=== PATIENT | male | born 1935 | race Caucasian/White ===

== ENCOUNTER 2020-04-25 13:38 | Outpatient (REF) | payer MEDICARE, SELFPAY ==
[2020-04-25 14:42] LABS: Eosinophils Percent Auto 0.9 % (0-4); MANUAL DIFF FLAG SCAN; PLT CLUMP 1; SCAN SMEAR FLAG 1
[2020-04-25 14:44] LABS: Basophils Percent Auto 0.9 % (0-2); Hemoglobin 8.9 g/dl (14.0-18.0); Imm Gran Abs Auto 0.01 X10*3/uL (0.00-0.03); Imm Gran Pct Auto 0.3 % (0.0-0.4); Lymphocytes Absolute Auto 0.6 X10*3/uL (1.2-4.9); Lymphocytes Percent Auto 16.8 % (20-40); Mean Corpuscular Hemoglobin 35.3 pg (27.0-33.0); Mean Corpuscular Volume 107.1 fL (80-98); Mean Platelet Volume 10.6 fL (9.4-12.4); Monocytes Absolute Auto 0.2 X10*3/uL (0.1-1.2); Monocytes Percent Auto 6.7 % (2-11); Neutrophils Absolute Auto 2.4 X10*3/uL (2.0-8.3); Neutrophils Percent Auto 74.4 % (45-73); Platelet Count 108 X10*3/uL (160-400); Red Blood Count 2.52 X10*6/uL (4.60-5.80); Red Cell Distribution Width 13.5 % (11.0-16.0); White Blood Count 3.3 X10*3/uL (4.8-10.8)
[2020-04-25 15:23] LABS: SLIDE REVIEW VERIFIED
== END 2020-04-25 13:39 | disposition home or self-care (01) ==
LOC: HO.LAB 13:38
PROVIDERS: PCP Internal Medicine; Visit Provider Internal Medicine
DX: D64.9 Anemia, unspecified (principal)
CPT/HCPCS: 36415; 85025

== ENCOUNTER 2020-06-14 08:55 | Outpatient (REF) | payer MEDICARE, SELFPAY ==
--- NOTE | 2020-06-14 09:00 | US_ITS ---
EXAMINATION: US ABDOMEN COMPLETE CLINICAL INFORMATION: Splenomegaly. COMPARISON: None TECHNIQUE: Real-time imaging of the abdominal viscera. FINDINGS: PANCREAS: Normal. ABDOMINAL AORTA: The proximal, mid, and distal segments are normal in caliber. INFERIOR VENA CAVA: Visualized portions are normal. LIVER: There is diffuse increased liver echogenicity. The liver is normal in size. The liver contour is normal. No focal hepatic lesion. There is no intrahepatic biliary duct dilatation seen. GALLBLADDER: There are multiple echogenic gallstones without wall thickening. The gallbladder is physiologically distended without evidence of polyps, wall thickening or pericholecystic fluid. COMMON BILE DUCT: Normal in caliber measuring 0.47 cm in diameter. RIGHT KIDNEY: Normal. No hydronephrosis. No renal calculi or focal parenchymal lesions. The kidney measures 10.7 cm in maximum dimension. LEFT KIDNEY: Normal. No hydronephrosis. No renal calculi or focal parenchymal lesions. The kidney measures 11.4 cm in maximum dimension. SPLEEN: Normal. The spleen measures 11.7 cm in maximum dimension. FREE FLUID: None. US/US abdomen complete IMPRESSION: Scattered gallstones without wall thickening. No tenderness in right upper quadrant. Mild hepatic steatosis without focal lesion. Rest of the abdominal ultrasound is unremarkable.
== END 2020-06-14 08:56 | disposition home or self-care (01) ==
LOC: HO.HMGCX 08:55
PROVIDERS: PCP Internal Medicine; Visit Provider Internal Medicine Medical Oncology
DX: R16.1 Splenomegaly, not elsewhere classified (principal)
CPT/HCPCS: 76700

== ENCOUNTER 2020-09-05 10:35 | Outpatient (REF) | payer MEDICARE, SELFPAY ==
[2020-09-05 10:50] LABS: Hemoglobin 10.5 g/dl (14.0-18.0); Imm Gran Abs Auto 0.01 X10*3/uL (0.00-0.03); Imm Gran Pct Auto 0.3 % (0.0-0.4); MANUAL DIFF FLAG SCAN; Mean Platelet Volume 10.8 fL (9.4-12.4); Neutrophils Absolute Auto 2.5 X10*3/uL (2.0-8.3); PLT CLUMP 1; SCAN SMEAR FLAG 1
[2020-09-05 10:52] LABS: Basophils Percent Auto 1.2 % (0-2); Eosinophils Absolute Auto 0.1 X10*3/uL (0.0-0.4); Eosinophils Percent Auto 2.6 % (0-4); Hematocrit 32.2 % (42-52); Lymphocytes Absolute Auto 0.6 X10*3/uL (1.2-4.9); Lymphocytes Percent Auto 16.5 % (20-40); Mean Corpuscular HGB Conc 32.6 g/dl (31.0-36.0); Mean Corpuscular Volume 107.3 fL (80-98); Monocytes Absolute Auto 0.3 X10*3/uL (0.1-1.2); Monocytes Percent Auto 8.1 % (2-11); Neutrophils Percent Auto 71.3 % (45-73); Platelet Count 120 X10*3/uL (160-400); White Blood Count 3.5 X10*3/uL (4.8-10.8)
[2020-09-05 10:54] LABS: Glucose Urine UA >=1000 MG/DL (NEG); Leukocyte Esterase Urine NEG (NEG); Nitrite Urine NEG (NEG); Urine Blood NEG (NEG); Urine Ketones NEG (NEG); Urine Protein TRACE MG/DL (NEG-TRACE)
[2020-09-05 10:58] LABS: Appearance Urine CLEAR; Color Urine YELLOW
[2020-09-05 11:03] LABS: Estimated Average Glucose 183 mg/dL
[2020-09-05 11:08] LABS: Bacteria Urine TRACE /LPF; RBC Urine 0 /HPF (0); Squamous Epithelial Cell Urine TRACE /LPF; WBC Urine 0-2 /HPF (0-4)
[2020-09-05 11:11] LABS: SLIDE REVIEW VERIFIED
[2020-09-05 11:23] LABS: Creatinine Urine 42.71 mg/dL; Microalbum/Creatinine Ratio Ur 543.1 ug/mg cr
[2020-09-05 11:26] LABS: Alanine Aminotransferase 26 U/L (0-40); Albumin Level 3.8 g/dL (3.5-5.0); Alkaline Phosphatase 52 U/L (39-117); Anion Gap 11 (12-20); Aspartate Amino Transferase 25 U/L (5-37); Bilirubin Total 1.8 mg/dL (0.0-1.0); Blood Urea Nitrogen 26 mg/dL (9-16); Calcium 8.4 mg/dL (8.4-10.2); Carbon Dioxide 24 mmol/L (22-29); Chloride 104 mmol/L (96-108); Cholesterol 153 mg/dL; Estimated Glomerular Filt Rate > 60; Glucose Fasting 287 mg/dL (60-99); HDL Cholesterol 66 mg/dL; LDL Cholesterol Calculated 67 mg/dl; Potassium 4.6 mmol/L (3.3-5.1); Sodium 134 mmol/L (135-145); Total Protein 6.1 g/dL (6.5-8.0); Triglycerides 102 mg/dL
[2020-09-05 11:54] LABS: PSA,Total (Free>4and<10) 4.07 ng/mL (0.00-4.00)
[2020-09-05 12:42] LABS: Reflex LDLD? No
[2020-09-06 11:02] LABS: Free Prostate Spec Ag 0.7 ng/mL; Percent Free Prostate Spec Ag 21 % (calc) (>25); Prostate Specific Ag Total 3.4 ng/mL (< OR = 4.0)
== END 2020-09-05 10:36 | disposition home or self-care (01) ==
LOC: HO.LNP 10:35
PROVIDERS: PCP Internal Medicine; Visit Provider Internal Medicine
DX: Z12.5 Encounter for screening for malignant neoplasm of prostate (principal); D64.9 Anemia, unspecified; D69.6 Thrombocytopenia, unspecified; I10 Essential (primary) hypertension; E11.9 Type 2 diabetes mellitus without complications; R97.20 Elevated prostate specific antigen [PSA]
CPT/HCPCS: 80053; 80061; 81001; 82043; 83036; 84153; 84154; 85025

== ENCOUNTER 2021-03-20 14:36 | Outpatient (REF) | payer MEDICARE, SELFPAY ==
[2021-03-20 15:30] LABS: Alanine Aminotransferase 22 U/L (0-40); Albumin Level 4.2 g/dL (3.5-5.0); Alkaline Phosphatase 51 U/L (39-117); Aspartate Amino Transferase 22 U/L (5-37); Bilirubin Direct 0.6 mg/dL (0.0-0.5); Bilirubin Total 1.7 mg/dL (0.0-1.0); Cholesterol 124 mg/dL; HDL Cholesterol 62 mg/dL; LDL Cholesterol Calculated 43 mg/dl; Total Protein 6.5 g/dL (6.5-8.0); Triglycerides 95 mg/dL
== END 2021-03-20 14:37 | disposition home or self-care (01) ==
LOC: HO.LNP 14:36
PROVIDERS: Visit Provider Internal Medicine
DX: E78.00 Pure hypercholesterolemia, unspecified (principal)
CPT/HCPCS: 80061; 80076

== ENCOUNTER 2021-09-27 11:42 | Outpatient (REF) | payer MEDICARE, SELFPAY ==
[2021-09-27 11:49] LABS: MANUAL DIFF FLAG NO
[2021-09-27 12:10] LABS: Basophils Percent Auto 1.2 % (0-2); Eosinophils Absolute Auto 0.1 X10*3/uL (0.0-0.4); Eosinophils Percent Auto 2.7 % (0-4); Hematocrit 34.6 % (42.0-52.0); Imm Gran Abs Auto 0.02 X10*3/uL (0.00-0.03); Imm Gran Pct Auto 0.6 % (0.0-0.4); Lymphocytes Absolute Auto 0.7 X10*3/uL (1.2-4.9); Lymphocytes Percent Auto 20.8 % (20-40); Mean Corpuscular HGB Conc 31.8 g/dl (31.0-36.0); Mean Corpuscular Hemoglobin 34.7 pg (27.0-33.0); Mean Corpuscular Volume 109.1 fL (80.0-98.0); Mean Platelet Volume 10.7 fL (9.4-12.4); Monocytes Absolute Auto 0.3 X10*3/uL (0.1-1.2); Monocytes Percent Auto 7.7 % (2-11); Neutrophils Absolute Auto 2.3 x10*3/uL (2.0-8.3); Platelet Count 103 X10*3/uL (160-400); Red Blood Count 3.17 X10*6/uL (4.60-5.80); White Blood Count 3.4 X10*3/uL (4.8-10.8)
[2021-09-27 12:19] LABS: Appearance Urine CLEAR; Color Urine YELLOW; Glucose Urine UA >=1000 MG/DL (NEG); Leukocyte Esterase Urine NEG (NEG); Nitrite Urine NEG (NEG); PH 5.5 (5.0-8.0); Specific Gravity - Urine 1.015 (1.005-1.025); Urine Blood NEG (NEG); Urine Ketones NEG (NEG); Urine Protein NEG (NEG-TRACE)
[2021-09-27 12:32] LABS: Amorphous Sediment Urine TRACE /LPF; RBC Urine 0-2 /HPF (0); WBC Urine 0 /HPF (0-4)
[2021-09-27 12:52] LABS: Creatinine Urine 41.12 mg/dL; Microalbum/Creatinine Ratio Ur 165.3 ug/mg cr
[2021-09-27 12:58] LABS: Estimated Average Glucose 166 mg/dL; Hemoglobin A1c % 7.4 %
[2021-09-27 14:15] LABS: Alanine Aminotransferase 21 U/L (0-40); Albumin Level 4.1 g/dL (3.5-5.0); Alkaline Phosphatase 59 U/L (39-117); Anion Gap 12 (12-20); Aspartate Amino Transferase 22 U/L (5-37); Bilirubin Total 1.6 mg/dL (0.0-1.0); Blood Urea Nitrogen 35 mg/dL (9-16); Calcium 9.5 mg/dL (8.4-10.2); Carbon Dioxide 24 mmol/L (22-29); Chloride 104 mmol/L (96-108); Cholesterol 145 mg/dL; Estimated Glomerular Filt Rate > 60; Glucose Fasting 205 mg/dL (60-99); HDL Cholesterol 68 mg/dL; LDL Cholesterol Calculated 58 mg/dl; Potassium 4.2 mmol/L (3.3-5.1); Sodium 136 mmol/L (135-145); Total Protein 6.7 g/dL (6.5-8.0); Triglycerides 98 mg/dL
[2021-09-27 14:49] LABS: PSA,Total (Free>4and<10) 8.16 ng/mL (0.00-4.00)
[2021-09-28 11:17] LABS: Free Prostate Spec Ag 1.4 ng/mL; Percent Free Prostate Spec Ag 19 % (calc) (>25); Prostate Specific Ag Total 7.5 ng/mL (< OR = 4.0)
== END 2021-09-27 11:43 | disposition home or self-care (01) ==
LOC: HO.LNP 11:42
PROVIDERS: PCP Internal Medicine; Visit Provider Internal Medicine
DX: Z12.5 Encounter for screening for malignant neoplasm of prostate (principal); E11.9 Type 2 diabetes mellitus without complications; I11.0 Hypertensive heart disease with heart failure; I50.21 Acute systolic (congestive) heart failure; E78.00 Pure hypercholesterolemia, unspecified; R97.20 Elevated prostate specific antigen [PSA]; E87.5 Hyperkalemia; D64.9 Anemia, unspecified
CPT/HCPCS: 80053; 80061; 81001; 81003; 82043; 83036; 84153; 84154; 85025

== ENCOUNTER 2022-10-24 13:41 | Outpatient (REF) | payer MEDICARE, SELFPAY ==
--- NOTE | ~2022-10-24 | US_ITS ---
EXAMINATION: US THYROID CLINICAL INFORMATION: Thyroid nodule. COMPARISON: None available. TECHNIQUE: Linear transducer grayscale and color Doppler examination with attention to the region of the thyroid. FINDINGS: SIZE: Measurements of the thyroid lobes and nodules are given in sagittal, anteroposterior and transverse dimensions respectively. Right Thyroid Lobe: 4.48 x 2.01 x 1.16 cm, volume 5.48 mL. Parenchyma: The gland echotexture is homogeneous. Thyroid vascularity is normal. Left Thyroid Lobe: 3.78 x 1.18 x 1.21 cm, volume 2.84 mL. Parenchyma: The gland echotexture is homogeneous. Thyroid vascularity is normal. Isthmus: 0.41 cm in maximum AP dimension. Estimated total number of nodules greater than or equal to 1 cm: 0. Processing Manager nodules are described as follows: 1. Location: Right superior. Size: 0.9 x 0.7 x 0.9 cm, volume 0.30 mL. Nodule characteristics: Composition: Solid/almost completely solid (2). Echogenicity: Hypoechoic (2). Shape: Not taller than wide (0). Margins: Smooth (0). Echogenic Foci: Punctate echogenic foci (3). ACR TI-RADS total points: 7 ACR TI-RADS category: 5 2. Location: Left superior. Size: 0.6 x 0.5 x 0.5 cm, volume 0.1 mL. Nodule characteristics: Composition: Cystic(0). ACR TI-RADS total points: 0 ACR TI-RADS category: 1 3. Location: Left mid. Size: 0.59 x 0.26 x 0.48 cm, volume 0.04 mL. Nodule characteristics: Composition: Mixed cystic and solid (1). Echogenicity: Isoechoic (1). Shape: Not taller than wide (0). Margins: Smooth (0). Echogenic Foci: None (0). ACR TI-RADS total points: 2 ACR TI-RADS category: 2 NODES: No lymphadenopathy is seen in the tissue surrounding the thyroid gland. US/US thyroid IMPRESSION: A 0.9 cm TR 5 right thyroid nodule meets criteria for annual surveillance for 5 years. Remainder of thyroid nodules do not meet criteria for follow-up. ACR TI-RADS RECOMMENDATION REFERENCE: Ultrasound-guided fine-needle aspiration, followup ultrasound, no further follow up. * TR1 (0 point) and TR2 (2 points): No FNA or follow up. * TR3 (3 points): FNA if more than or equal to 2.5 cm in maximum dimension, followup ultrasound in 1, 3 and 5 years if 1.5 to 2.4 cm in maximum dimension. * TR4 (4-6 points): FNA if more than or equal to 1.5 cm in maximum dimension, followup ultrasound in 1, 2, 3 and 5 years if 1 to 1.4 cm in maximum dimension. * TR5 (more than or equal to 7 points): FNA if more than or equal to 1 cm in maximum dimension, followup ultrasound every year for 5 years if 0.5 to 0.9 cm in maximum dimension. * TR3, TR4 or TR5 nodules that are below the size threshold for followup receive no follow up.
== END 2022-10-24 13:42 | disposition home or self-care (01) ==
LOC: HO.HMGCX 13:41
PROVIDERS: Visit Provider Internal Medicine
DX: E04.1 Nontoxic single thyroid nodule (principal)
CPT/HCPCS: 76536

== ENCOUNTER 2022-11-08 15:51 | Outpatient (REF) | payer MEDICARE, SELFPAY ==
[2022-11-08 15:58] LABS: MANUAL DIFF FLAG NO
[2022-11-08 16:17] LABS: Basophils Percent Auto 0.5 % (0-2); Eosinophils Percent Auto 0.7 % (0-4); Hematocrit 25.6 % (42.0-52.0); Hemoglobin 8.4 g/dl (14.0-18.0); Imm Gran Abs Auto 0.04 X10*3/uL (0.00-0.03); Imm Gran Pct Auto 0.9 % (0.0-0.4); Lymphocytes Absolute Auto 0.7 X10*3/uL (1.2-4.9); Mean Corpuscular HGB Conc 32.8 g/dl (31.0-36.0); Mean Corpuscular Hemoglobin 32.9 pg (27.0-33.0); Mean Corpuscular Volume 100.4 fL (80.0-98.0); Mean Platelet Volume 10.7 fL (9.4-12.4); Monocytes Absolute Auto 0.3 X10*3/uL (0.1-1.2); Monocytes Percent Auto 7.4 % (2-11); Neutrophils Absolute Auto 3.3 x10*3/uL (2.0-8.3); Neutrophils Percent Auto 75.5 % (45-73); Platelet Count 134 X10*3/uL (160-400); Red Blood Count 2.55 X10*6/uL (4.60-5.80); Red Cell Distribution Width 15.2 % (11.0-16.0); White Blood Count 4.3 X10*3/uL (4.8-10.8)
== END 2022-11-08 15:52 | disposition home or self-care (01) ==
LOC: HO.LNP 15:51
PROVIDERS: Visit Provider Internal Medicine
DX: D69.6 Thrombocytopenia, unspecified (principal)
CPT/HCPCS: 85025

== ENCOUNTER 2022-12-03 11:02 | Outpatient (REF) | payer MEDICARE, SELFPAY ==
[2022-12-03 11:26] LABS: Neutrophils Percent Auto 70.6 % (45-73); PLT CLUMP 1; SCAN SMEAR FLAG 1
[2022-12-03 11:28] LABS: Basophils Absolute Auto 0.1 X10*3/uL (0.0-0.2); Basophils Percent Auto 1.9 % (0-2); Eosinophils Absolute Auto 0.1 X10*3/uL (0.0-0.4); Eosinophils Percent Auto 1.3 % (0-4); Hemoglobin 10.4 g/dl (14.0-18.0); Imm Gran Abs Auto 0.02 X10*3/uL (0.00-0.03); Imm Gran Pct Auto 0.5 % (0.0-0.4); Lymphocytes Absolute Auto 0.7 X10*3/uL (1.2-4.9); Lymphocytes Percent Auto 17.5 % (20-40); Mean Corpuscular HGB Conc 32.5 g/dl (31.0-36.0); Mean Corpuscular Volume 104.6 fL (80.0-98.0); Mean Platelet Volume 10.9 fL (9.4-12.4); Monocytes Absolute Auto 0.3 X10*3/uL (0.1-1.2); Monocytes Percent Auto 8.2 % (2-11); Neutrophils Absolute Auto 2.7 x10*3/uL (2.0-8.3); Red Blood Count 3.06 X10*6/uL (4.60-5.80); Red Cell Distribution Width 15.2 % (11.0-16.0)
[2022-12-03 11:40] LABS: Iron 86 mcg/dL (45-160); Percent Iron Saturation 39 % (15-50); Total Iron Binding Capacity 218 mcg/dL (228-428); Unsaturated Iron Binding 132 ug/dL
[2022-12-03 11:44] LABS: MANUAL DIFF FLAG NO; Platelet Count 125 X10*3/uL (160-400); White Blood Count 3.8 X10*3/uL (4.8-10.8)
[2022-12-03 12:13] LABS: Folate 16.4 ng/mL (> or = 4.0); Vitamin B12 > 2000 pg/mL (200-900)
== END 2022-12-03 11:03 | disposition home or self-care (01) ==
LOC: HO.LNP 11:02
PROVIDERS: Visit Provider Internal Medicine
DX: D64.9 Anemia, unspecified (principal); D70.9 Neutropenia, unspecified
CPT/HCPCS: 82607; 82746; 83540; 85025

== ENCOUNTER 2023-07-10 11:34 | Outpatient (REF) | payer MEDICARE, SELFPAY | END 2023-07-10 11:35 | disposition home or self-care (01) | LOC: HO.LNP 11:34 | PROVIDERS: Visit Provider Internal Medicine | DX: E11.9 Type 2 diabetes mellitus without complications (principal); E78.00 Pure hypercholesterolemia, unspecified | CPT/HCPCS: 80061; 80076; 82947; 83036 ==

== ENCOUNTER 2023-10-15 14:12 | Outpatient (REF) | payer MEDICARE, SELFPAY ==
--- NOTE | ~2023-10-15 | US_ITS ---
EXAMINATION: US THYROID CLINICAL INFORMATION: Thyroid nodule. COMPARISON: Thyroid ultrasound 10/24/2022. TECHNIQUE: Linear transducer grayscale and color Doppler examination with attention to the region of the thyroid. FINDINGS: SIZE: Measurements of the thyroid lobes and nodules are given in sagittal, anteroposterior and transverse dimensions respectively. Right Thyroid Lobe: 4.3 x 1.7 x 1.3 cm, volume 5.0 mL. Previously 4.5 x 2.0 x 1.2 cm, volume 5.5 mL. Parenchyma: The gland echotexture is homogeneous. Thyroid vascularity is normal. Left Thyroid Lobe: 4.0 x 1.3 x 1.5 cm, volume 4.1 mL. Previously 3.8 x 1.2 x 1.2 cm, volume 2.8 mL. Parenchyma: The gland echotexture is homogeneous. Thyroid vascularity is normal. Isthmus: 0.3 cm in maximum AP dimension. Previously 0.4 cm. Estimated total number of nodules greater than or equal to 1 cm: 0. Oracle Database Manager nodules are described as follows: 1. Location: Right upper pole. Size: 0.9 x 0.8 x 0.9 cm, volume 0.33 mL. Previously: 0.9 x 0.7 x 0.9 cm, volume 0.30 mL. Nodule characteristics: Composition: Solid/almost completely solid (2). Echogenicity: Hypoechoic (2). Shape: Not taller than wide (0). Margins: Smooth (0). Echogenic Foci: Punctate echogenic foci (3). ACR TI-RADS total points: 7 Previous: 7 ACR TI-RADS category: 5 Previous: 5 2. Location: Left upper pole. Size: 0.6 x 0.5 x 0.6 cm, volume 0.08 mL. Previously: 0.6 x 0.5 x 0.5 cm, volume 0.07 mL. Nodule characteristics: Composition: Cystic(0). ACR TI-RADS total points: 0 Previous: 0 ACR TI-RADS category: 1 Previous: 1 3. Location: Left mid pole. Size: 0.8 x 0.3 x 0.5 cm, volume 0.05 mL. Previously: 0.6 x 0.3 x 0.5 cm, volume 0.04 mL. Nodule characteristics: Composition: Spongiform (0). ACR TI-RADS total points: 0 Previous: 0 ACR TI-RADS category: 1 Previous: 1 NODES: No lymphadenopathy is seen in the tissue surrounding the thyroid gland. US/US thyroid IMPRESSION: Stable 0.9 cm TR 5 nodule in the right upper thyroid. Recommend surveillance ultrasound in one year. ACR TI-RADS RECOMMENDATION REFERENCE: Ultrasound-guided fine-needle aspiration, follow up ultrasound, no further followup. * TR1 (0 point) and TR2 (2 points): No FNA or followup * TR3 (3 points): FNA if more than or equal to 2.5 cm in maximum dimension, follow up ultrasound in 1, 3 and 5 years if 1.5 to 2.4 cm in maximum dimension. * TR4 (4-6 points): FNA if more than or equal to 1.5 cm in maximum dimension, follow up ultrasound in 1, 2, 3 and 5 years if 1 to 1.4 cm in maximum dimension. * TR5 (more than or equal to 7 points): FNA if more than or equal to 1 cm in maximum dimension, follow up ultrasound every year for 5 years if 0.5 to 0.9 cm in maximum dimension. * TR3, TR4 or TR5 nodules that are below the size threshold for follow up receive no followup.
== END 2023-10-15 14:13 | disposition home or self-care (01) ==
LOC: HO.HMGCX 14:12
PROVIDERS: PCP Internal Medicine; Visit Provider Internal Medicine
DX: E04.1 Nontoxic single thyroid nodule (principal)
CPT/HCPCS: 76536

== ENCOUNTER 2023-12-17 14:28 | Outpatient (REF) | payer MEDICARE, SELFPAY ==
--- NOTE | ~2023-12-17 | CT_ITS ---
EXAMINATION: CT LUMBAR SPINE WITHOUT CONTRAST CLINICAL INFORMATION: Low back pain. Lumbar disc disease. COMPARISON: Lumbar spine MRI 09/17/2018. TECHNIQUE: Clean Up Worker images were obtained. CT imaging of the lumbar spine was performed without contrast. Data was reformatted into multiplanar images at the acquisition workstation. This CT examination was performed using dose optimization techniques as appropriate, variously including the following: *Automated exposure control *Adjustment of mA and/or kV according to patient size (this includes techniques or standardized protocols for targeted exams where dose is matched to indication/reason for exam; i.e. extremities or head) *Use of iterative reconstruction technique DLP; 491 mGy-cm FINDINGS: There are chronic postoperative changes of a posterior spinal fusion. Transpedicular hardware extends from L4 to L5. Hardware is grossly intact with no evidence to suggest loosening or failure. Bridging bone completely fuses the L4 and L5 vertebral segments. Alignment is otherwise normal. Vertebral body heights are preserved. No acute fracture. There is loss of intervertebral disc height with associated sclerotic degenerative endplate changes, hypertrophic disc osteophyte spurring, and intervertebral vacuum disc phenomenon at L5-S1 and to a lesser extent at L3-L4. Canal patency is not well assessed on this examination due to inherent limitations of CT without intrathecal contrast and due to the extent of streak artifact related to the fusion hardware There is a least moderate canal stenosis at the level of L3-L4. A bulging disc in conjunction with facet degenerative change at L3-L4 causes at least mild mass effect on both L3 foraminal nerve roots. There is also at least moderate compression of both L5 foraminal nerve roots related to degenerative changes at L5-S1. Limited visualization of the retroperitoneal anatomy reveals heavily calcified atherosclerotic plaque involving abdominal aorta and iliac vessels. Psoas and paraspinal muscle groups are grossly symmetric. CT/CT lumbar spine wo IV con IMPRESSION: There are chronic postoperative changes of a posterior spinal fusion with transpedicular hardware extending from L4 to L5. Bridging bone completely fuses the L4 and L5 vertebral segments. There is junctional spondylosis above and below the fused segments. Canal patency is not well assessed on this examination due to inherent limitations of CT without intrathecal contrast and due to the extent of streak artifact related to the fusion hardware. There is at least moderate canal stenosis at L3-L4 and at least mild mass effect on both L3 foraminal nerve roots. There is also at least moderate compression of both L5 foraminal nerve roots related to degenerative changes at L5-S1.
== END 2023-12-17 14:29 | disposition home or self-care (01) ==
LOC: HO.CT 14:28
PROVIDERS: PCP Internal Medicine; Visit Provider Internal Medicine
DX: M51.16 Intervertebral disc disorders with radiculopathy, lumbar region (principal)
CPT/HCPCS: 72132

== ENCOUNTER 2024-02-09 11:22 | Outpatient (REF) | payer MEDICARE, SELFPAY ==
[2024-02-09 11:50] LABS: Estimated Average Glucose 180 mg/dL; Hemoglobin A1c % 7.9 % (<6.0)
[2024-02-09 12:16] LABS: Alanine Aminotransferase 17 U/L (0-40); Alkaline Phosphatase 48 U/L (39-117); Aspartate Amino Transferase 18 U/L (5-37); Bilirubin Direct 0.5 mg/dL (0.0-0.5); Bilirubin Total 1.6 mg/dL (0.0-1.0); Cholesterol 114 mg/dL (<200); Glucose Fasting 135 mg/dL (60-99); HDL Cholesterol 58 mg/dL (>40); LDL Cholesterol Calculated 42 mg/dL (<100); Total Protein 6.4 g/dL (6.5-8.0); Triglycerides 72 mg/dL (<150)
[2024-02-09 12:31] LABS: Reflex LDLD? No
== END 2024-02-09 11:23 | disposition home or self-care (01) ==
LOC: HO.LNP 11:22
PROVIDERS: Visit Provider Internal Medicine
DX: E11.9 Type 2 diabetes mellitus without complications (principal); E78.00 Pure hypercholesterolemia, unspecified
CPT/HCPCS: 80061; 80076; 82947; 83036

== ENCOUNTER 2024-07-04 16:03 | Emergency (ER) | payer MEDICARE, SELFPAY ==
--- NOTE | ~2024-07-04 | XR_ITS ---
CLINICAL HISTORY: 2nd toe injury, diabetic 3 view right 2nd toe Comparison: None Findings: There is a nondisplaced fracture of the proximal metaphysis of the 2nd distal phalanx. No dislocation. Moderate arthritic change. No erosions. No radiopaque foreign body. There are peripheral vascular calcifications compatible with diabetes. IMPRESSION: Acute fracture of the 2nd distal phalanx. This document has been electronically signed by: Sarah Stephens MD on 07/04/2024 17:19:28
--- NOTE | 2024-07-04 16:05 | ED.LOWEXIN ---
HPI - Extremity Injury (Lower) General Chief Complaint: Skin/Abscess/Foreign Body Stated Complaint: R second toe injury Time Seen by Provider: 07/04/24 17:22 Source: patient, RN notes reviewed and old records reviewed Mode of arrival: ambulatory History of Present Illness ED Provider: Perlita Holloway PA-C HPI Narrative: 89-year-old male with a past medical history diabetes, HTN, thrombocytopenia, anemia, presenting to the ED complaining of right 2nd toe pain and bleeding s/p stubbing toe on garage step this morning. Denies injury to other area, fall all the way to ground, head trauma, LOC. Admits take baby ASA. Denies numbness, tingling, weakness Related Data Home Medications ?Medication ?Instructions ?Recorded ?Confirmed Novolog Flexpen U-100 Insulin See Rx Instructions .Route .COMPLEX 05/29/20 02/01/22 aspirin 81 mg tablet 81 mg PO DAILY 05/29/20 02/01/22 atorvastatin 80 mg tablet 80 mg PO DAILY 05/29/20 02/01/22 insulin glargine 100 unit/mL 10 unit subcut DAILY 05/29/20 02/01/22 subcutaneous cartridge vitamin B12 500 mcg-folic acid 400 1 tab PO DAILY 05/29/20 02/01/22 mcg tablet ferrous sulfate 325 mg (65 mg 325 mg PO BID 10/06/20 02/01/22 iron) tablet (Iron (ferrous sulfate)) multivitamin 1 tab PO DAILY 02/01/22 02/01/22 Previous Rx's ?Medication ?Instructions ?Recorded cephalexin 500 mg capsule 500 mg PO QID 7 days #28 caps 07/04/24 Allergies Allergy/AdvReac Type Severity Reaction Status Date / Time No Known Allergies Allergy Verified 07/04/24 16:07 [No Known Allergies*] Review of Systems Review of Systems: Yes all other systems are reviewed and are negative Constitutional: Constitutional: Reports as per [facility] Past Medical History Attestation statement: The following information was validated with the patient. Source: old records reviewed Medical History Diabetes Essential (primary) hypertension Thrombocytopenia Anemia Surgical History Previous back surgery Family History Family History Mother Heart disease Social History Social History Household Members: None Housing: House Are you a primary healthcare facility administrator to a significant other at home: No Do you presently have visiting nurse or other home services: No Alcohol intake: current Alcohol intake frequency: 0-2 drinks per day Patient Tobacco Use Status: Never used Tobacco Advance Directives: No Advance Directives Information Provided: No service: Yes Current occupational status: retired Physical Exam Vital Signs: Vital Signs: Last Vital Signs Temp 97.9 F 07/04/24 18:12 Pulse 84 07/04/24 18:12 Resp 16 07/04/24 18:12 BP 156/60 H 07/04/24 18:12 Pulse Ox 99 07/04/24 18:12 O2 Del Method Room Air 07/04/24 18:12 BMI result Body Mass Index 23.6 Const: General: cooperative, healthy appearing and no acute distress Orientation/consciousness: patient oriented x3 Limitations: no limitations HEENT: Head: Yes normal to inspection and Yes atraumatic Ears: hearing grossly normal bilaterally General nose exam: Normal external nose present Face and sinus: Yes normal facial exam Eyes: General: appearance normal, both eyes and all related structures EOM: EOMs intact bilaterally Neck: Neck: Yes normal visual inspection and Yes no meningeal signs Resp: Effort & Inspection: normal respiratory effort and no respiratory distress Cardio: Rate: regular rate Skin: Rashes: no rashes Neuro: General: patient oriented x3, tone normal and no meningeal signs Cranial nerves: Yes CN's II-XII intact bilaterally Gait exam (Neuro): Normal gait present Extrem: Other: Right 2nd toe with swelling, blood blister, and skin tear. Tender to palpation. Neurovascularly intact. No erythema/warmth. Nail intact Course Course Course Narrative: This is a Rapid Medical Examination (RME) performed by Viji Alvarez PA-C in triage. Full HPI, ROS, assessment and treatment plan per primary provider in the Main ED. 89 yo male hx anemia, DM here for eval of right second toe wound after stubbing the toe on a step in his garage. he was unaware he injured the toe until he looked down and saw his sock was bloody. not on AC. Plan: xr XR toe RT min 2V IMPRESSION: Acute fracture of the 2nd distal phalanx > wound dressing applied with Surgicel. Dulce Maria tape applied. Recommended podiatry follow-up Medical Decision Making Medical Decision Making MDM Narrative: 89-year-old male with a past medical history diabetes, HTN, thrombocytopenia, anemia, presenting to the ED complaining of right 2nd toe pain and bleeding s/p stubbing toe on garage step this morning. On exam vital signs stable, NAD, nontoxic appearing, physical exam as noted above. Concern for fracture. No evidence of cellulitis. Low suspicion for septic joint Plan: X-ray, wound care Please refer to course for remaining clinical decision making, interpretation of labs/imaging results, and discussions with consultants and/or family members. Differential Diagnosis Differential Diagnoses: The differential diagnosis associated with the presentation includes As above Independent Interpretation I performed an independent interpretation of an: Plain X-Ray Radiology Impression Discussion of test interpretation with radiology: I have reviewed the radiologist's reading. External Record Review External record reviewed: Inpatient record, Office record, Outpatient record, Prior outpatient labs, Prior outpatient radiology, Primary care record and Outside ED record Tests considered The following testing was considered but not selected: As above Prescription Management I considered prescription management with: Pain Medication and Antibiotic Chronic Conditions Patient?s care impacted by: Diabetes Procedures Orthopedic Splinting/Casting Injury #1: Side: right Lower Extremity Injury Location: toe Lower Extremity Immobilizer: dulce maria tape Discharge Plan Discharge Clinical Impression: Fracture of distal phalanx of toe Patient Disposition: Home, Self-Care Instructions: Toe Fracture (ED) Additional Instructions: You broke your 2nd toe Keflex as an antibiotic please take as prescribed until completion Please keep dulce maria tape on Please follow-up with Podiatry if area begins to look infected, is red, has persistent bleeding or you have fever return to the ED Prescriptions: New cephalexin 500 mg capsule 500 mg PO QID 7 Days Qty: 28 0RF No Action atorvastatin 80 mg Tablet 80 mg PO DAILY aspirin 81 mg Tablet 81 mg PO DAILY Lantus U-100 Insulin 100 unit/mL Cartridge 10 unit SUBCUT DAILY vitamin [id number] acid 500-400 mcg Tablet 1 tab PO DAILY Novolog Flexpen U-100 Insulin See Rx Instructions .ROUTE .COMPLEX Rx Instructions: 5 units w/ breakfast, 3 units w/ lunch, 5 units w/ dinner ferrous sulfate [Iron (ferrous sulfate)] 325 mg (65 mg iron) Tablet 325 mg PO BID multivitamin Tablet 1 tab PO DAILY Referrals: [facility] [place] [facility] [Provider Group] - 1 week Ady Johns MD [Physician] - Bob Johns DPM [Physician] - Print Language: Senegalese
[2024-07-04 16:06] VITALS: BP 164/61; PULSE 85; RESP 16; TEMP 36.4; O2SAT 100; BMI 23.6
--- OUTSIDE RECORDS SUMMARY | 2024-07-04 16:06 | XMS_ITS | Encounter Summary ---
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 This section includes the names of all active insurance providers for the patient. Insurance Provider Type of Coverage Plan Name Start of Policy Coverage End of Policy Coverage Group Number Member ID Insurance Provider's Telephone Number Policy Frank's Name Patient's Relationship to Policy Frank [place] MEDICARE SUPPLEMEN BHARGAVI PSUED O MEDEX BRONZ E Jun 06, 2001 [id number] [phone] [facility] OM[place] PATIENT [place] OF [place] ([place]ARD[place] MEDICARE SUPPLEMEN BHARGAVI PSUED O MEDEX BRONZ E Jun 06, 2001 [id number] [phone] [place] PATIENT [place] MEDIC[place] SUPPLEMEN BHARGAVI MEDEX BRONZ E Jun 06, 2001 [id number] [facility] [place] PAT[place] SUPPLEMEN BHARGAVI PSUED O MEDEX BRONZ E Jun 06, 2001 [id number] [facility] OMAS PATIENT BCBS OF [facility] MEDICARE SUPPLEMEN BHARGAVI PSUED O MEDEX BRONSalbador E Jun 06, 2001 [id number] HUDMERLIN,RACHEL OMAS PATIENT MEDICARE (WNR) MEDICARE (M) PART A May 07, 2001 PART A [id number] ([id number] HUDOCK,RACHEL OMAS PATIENT MEDICARE (WNR) MEDICARE (M) PART B May 07, 2001 PART B [id number] ([id number] HUDOCK,RACHEL OMAS PATIENT MEDICARE (WNR) MEDICARE (M) PART A May 07, 2001 PART A [id number] HUDOCK,RACHEL OMAS PATIENT MEDICARE (WNR) MEDICARE (M) PART B May 07, 2001 PART B [id number] HUDMERLIN,RACHLE OMAS PATIENT MEDICARE (WNR) MEDICARE (M) PART A May 07, 2001 PART A [id number] ([id number] HUDMERLIN,RACHEL OMAS PATIENT MEDICARE (WNR) MEDICARE (M) PART B May 07, 2001 PART B [id number] HUDOCK,RACHEL OMAS PATIENT MEDICARE (WNR) MEDICARE (M) PART A May 07, 2001 PART A [id number] HUDMERLIN,RACHEL OMAS PATIENT MEDICARE (WNR) MEDICARE (M) PART B May 07, 2001 PART B [id number] HUDRACHEL BOYER OMAS PATIENT Selected Encounter This section includes the information on record at [place] for the Encounter. Date/Time Encounter Type Encounter Description Reason Pro vider Source Aug 02, 2023 06:30 PM Outpatient Encounter ENDOCRINOLOGY IHE Encounter Template Text not used by [facility] Plan of Treatment: Future Appointments (+ 6 months) and Future Tests (+/- 45 days) The Plan of Treatment section includes future care activities for the patient from all VA treatmentfacilities. This section includes future appointments and future orders which are active, pending or scheduled. Future Appointments This section includes appointments that were scheduled to occur 6 months from the date of the Encounter, up to a maximum of 20 appointments. The data comes from all [place] treatment facilities. Appointment Date/Time Appointment Type Appointme nt Facility Name Aug 05, 2023 11:00 AM AMBULATORY - MEDICINE [place] [facility] [place] [facility] Aug 14, 2023 06:00 AM AMBULATORY - MEDICINE [place] [facility] [place] [facility] Aug 28, 2023 11:00 AM AMBULATORY - MEDICINE [place] [facility] [place] [facility] November 21, 2023 08:00 AM AMBULATORY - MEDICINE [place] [facility] [place] [facility] December 04, 2023 11:00 AM AMBULATORY - MEDICINE [place] [facility] [place] [facility] Dec 23, 2023 11:00 AM AMBULATORY - MEDICINE [place] [facility] [place] [facility] Jan 21, 2024 08:00 AM AMBULATORY - MEDICINE [place] [facility] [place] [facility] Lab Results: +/- 30 days of the encounter This section includes the Chemistry and Hematology Lab Results on record with [place] for the patient. Radiology Reports and Pathology Reports are provided separately, in subsequent sections. Lab Results This section contains the Chemistry/Hematology Results that were resulted 30 days before or 30 daysafter the date of the Encounter. Date/Time Source Result Type Result - Unit Interpretation Reference Range Comment Aug 15, 2023 11:00 AM [facility] MICROALBUMIN CREATININE RATIO PANEL Specimen Type: URINE No comment entered. Ordering Provider: FABI MCKEON Report Released Date/Time: May 12, 2023 12:16 PM Reporting Lab: [address] [address] Performing Lab: [address] [address] MICROALBUMIN/C REATININE RATIO 112.4 mg/g H 0-29.9 MICROALBUMIN,Q UANTITATIVE 1.5 mg/dL RR UNAVAIL CREATININE URINE 13.35 mg/dL Aug 01, 2023 11:00 AM [facility] HEMOGLOBIN A1C PANEL Specimen Type: BLOOD Comment: Values obtained from A1C measurements can vary. For atypical A1C assays, a reported value of 7.0 could actually be between 6.72 and 7.28 if measured by a reference method. A reported value of 9.0 could actually be between 8.73 and 9.27. Ref: http://www.ngs p.org/CAPdata. asp Ordering Provider: FABI MCKEON Report Released Date/Time: May 12, 2023 12:16 PM Reporting Lab: [facility] [address] [address] Performing Lab: [address] [address] HEMOGLOBIN A1C 7.3 H 4.0-5.6 Aug 01, 2023 11:00 AM [facility] LIPID PANEL FASTING Specimen Type: SERUM No comment entered. Ordering Provider: FABI MCKEON Report Released Date/Time: May 12, 2023 12:16 PM Reporting Lab: [facility] [address] [facility] [address] Performing Lab: [address] [address] CHOLESTEROL 157 mg/dL TRIGLYCERIDE 63 mg/dL 0-150 LDL calculated 65 mg/dL 0-129 CHOL/HDL 2.0 HDL CHOLESTEROL 79 mg/dL H 40-60 Aug 01, 2023 11:00 AM [facility] BASIC METABOLIC PANEL (non-fasting) Specimen Type: SERUM No comment entered. Ordering Provider: FABI MCKEON Report Released Date/Time: May 12, 2023 12:16 PM Reporting Lab: [address] [address] Performing Lab: [address] [address] UREA NITROGEN 40 mg/dL H 7-25 GLUCOSE 119 mg/dL H 65-100 SODIUM 134 mmol/L L 135-145 POTASSIUM 4.1 mmol/L 3.5-5.0 CHLORIDE 97 mmol/L L 100-110 CO2 28 meq/L 20-30 CREATININE, Serum 1.21 mg/dL 0.50-1.40 eGFR(CKD-EPI 2020) 58 mL/min L >60 Social History: Smoking Status (Most current) and Tobacco Use (All prior to encounter date) This section includes the most current, and the historical, smoking and tobacco- related health factors from the [place] facility where the Encounter took place. Current Smoking Status This section includes the most current smoking, or tobacco-related health factor, from the [place] facility where the Encounter took place. Date/Time Current Smoking Status Comment [facility] it May 07, 2022 09:00 AM VA-TOBACCO FORMER USER [place] [facility] [place] [facility] Tobacco Use History This section includes a history of the smoking, or tobacco-related health factors, that were collected on or before the date of the Encounter. The data comes from the [place] facility where the Encounter took place. Date/Time Smoking Status/Tobac co Use Comment Facility May 07, 2022 09:00 AM VA-TOBACCO QUIT 15 YRS OR MORE [place] [facility] [place] [facility] May 21, 2021 08:00 AM VA-TOBACCO FORMER USER [place] [facility] [place] [facility] May 21, 2021 08:00 AM VA-TOBACCO QUIT 15 YRS OR MORE [place] [facility] [place] [facility] Apr 24, 2020 11:00 AM VA-TOBACCO FORMER USER [place] [facility] [place] [facility] Apr 24, 2020 11:00 AM VA-TOBACCO QUIT 15 YRS OR MORE [place] [facility] [place] [facility] Jan 15, 2018 10:57 AM QUIT TOBACCO USE > 7 YEARS AGO [facility] [place] [facility] Dec 10, 2016 08:53 AM QUIT TOBACCO USE > 7 YEARS AGO [facility] [place] [facility] Jul 19, 2015 10:22 AM QUIT TOBACCO USE > 7 YEARS AGO Quit about 40 years ago. [place] [facility] [place] [facility] November 14, 2004 10:00 AM HISTORY OF SMOKING [place] [facility] [place] [facility] November 14, 2004 10:00 AM LIFETIME NON-SMOKER [place] [facility] [place] [facility] Oct 25, 2003 10:34 AM HISTORY OF SMOKING [place] [facility] [place] [facility] Oct 07, 2002 09:41 AM HISTORY OF SMOKING [facility] [place] [facility] Nov 03, 2001 10:31 AM QUIT TOBACCO USE > 7 YEARS AGO [place] [facility] [place] [facility] Jul 31, 2001 02:15 PM NON-TOBACCO USER Quit 20 yrs ago [facility] [place] [facility] Advance Directives: All historical and current Section Date Range: From patient's date of to the date document was created. This section includes ALL of a patient's completed or amended [place] Advance and Rescinded Directives. The entries below indicate that a directive exists for the patient, but an actual copy is not included with this document. The data comes from all [place] facilities. Date Advance Directives Provider Source Jul 03, 2023 ADVANCE DIRECTIVE RICHARD BAZZI [facility] Encounter Notes: All associated encounter notes This section contains the clinical notes associated to the Encounter. Date/Time Encounter Note(s) Provider Source Aug 02, 2023 06:30 PM LETTERS: LOCAL TITLE: PATIENT LETTER (B) STANDARD TITLE: LETTERS DATE OF NOTE: AUG 02, 2023@18:30 ENTRY DATE: AUG 02, 2023@18:30:06 AUTHOR: FABI MCKEON COSIGNER: URGENCY: STATUS: COMPLETED Jul [facility] [address], [place] [address] Dear , Your recent test results are as follows: 08/01/2023 11:00 BLOOD !! HEMOGLOBIN A1C 7.3 H % 4.0 - 5.6 08/01/2023 11:00 SERUM CREATININE, Serum 1.21 mg/dL 0.50 - 1.40 eGFR(CKD-EPI 2020 58 L mL/min Ref: >=60 SODIUM 134 L mmol/L 135 - 145 POTASSIUM 4.1 mmol/L 3.5 - 5.0 CHLORIDE 97 L mmol/L 100 - 110 CO2 28 mEq/L 20 - 30 UREA NITROGEN 40 H mg/dL 7 - 25 GLUCOSE 119 H mg/dL 65 - 100 CHOLESTEROL 157 mg/dL <7 - 199 TRIGLYCERIDE 63 mg/dL 0 - 150 LDL cholesterol 65 mg/dL 0 - 70 CHOL/HDL 2.0 HDL CHOLESTEROL 79 H mg/dL 40 - 60 Your kidney function blood test is fine for age. Your chemistries are fine. Please call if you have any questions or concerns at [phone] option 2 option 4. Sincerely, MD LINDA Mims [facility]
--- OUTSIDE RECORDS SUMMARY | 2024-07-04 16:06 | XMS_ITS ---
Author Name [facility] [place] [facility] Address [address] [place] [address] Care Team Providers Care Motor Scooter Repairer Name Role Phone ROBERT DAVIS Primary Care Provider Unav ailable RICHARD BAZZI Unavailable Unavailable CASSANDRA FERRELL Unavailable Unavailable KELSEA JO Unavailable Unavailable MONSE DUBON Unavailable Unavailable MILLIE DAVENPORT Unavailable Unavailable DARSHAN OLIVERA Unavailable Unavailable СЕРГЕЙ, JENS Unavailable Unavailable RONY, PADMA Unavailable Unavailable Insurance Providers: All historical and [...] O MEDEX BRONZ E Jun 06, 2001 [id number] OM[place] PATIENT ANTHE[place] OF [place] (BLUECARD) MEDICARE SUPPLEMEN BHARGAVI PSUED O MEDEX BRONZ E Jun 06, 2001 [id number] [place] PATIENT [place] MED[place] SUPPLEMEN BHARGAVI MEDEX BRONZ E Jun 06, 2001 [id number] [phone] [place] PAT[place] SUPPLEMEN BHARGAVI PSUED O MEDEX BRONZ E Jun 06, 2001 [id number] HUDRACHEL BOYER [place] PAT[place] MED[place] SUPPLEMEN BHARGAVI PSUED O MEDEX BRONZ E Jun 06, 2001 [id number] HUDMERLIN,RACHEL OMAS PATIENT MEDICARE (WNR) MEDICARE (M) PART A May 07, 2001 PART A [id number] HUDOCK,RACHEL OMAS PATIENT MEDICARE (WNR) MEDICARE (M) PART B May 07, 2001 PART B [id number] ([id number] [phone] HUDOCK,RACHEL OMAS PATIENT MEDICARE (WNR) MEDICARE (M) PART A May 07, 2001 PART A [id number] ([id number] HUDOCK,RACHEL OMAS PATIENT MEDICARE (WNR) MEDICARE (M) PART B May 07, 2001 PART B [id number] ([id number] HUDMERLIN,RACHEL OMAS PATIENT MEDICARE (WNR) MEDICARE (M) PART A May 07, 2001 PART A [id number] HUDRACHEL BOYER OMAS PATIENT MEDICARE (WNR) MEDICARE (M) PART B May 07, 2001 PART B [id number] HUDMERLIN,RACHEL OMAS PATIENT MEDICARE (WNR) MEDICARE (M) PART A May 07, 2001 PART A [id number] ([id number] HUDMERLIN,RACHEL OMAS PATIENT MEDICARE (WNR) MEDICARE (M) PART B May 07, 2001 PART B [id number] ([id number] HUDRACHEL BOYER [facility] PATIENT Selected Encounter This section includes the information on [place] at [place] for the Encounter. Date/Time Encounter Type Encounter Description Reason Pro vider Source Aug 04, 2023 10:04 AM Outpatient Encounter [facility] PHYSIC EXTND(ALLEY TENDER,ACCOUNTS PAYABLE COORDINATOR,PA) IHE Encounter Template Text not used by [...] 20 appointments. The data comes from all [place] treatment facilities. Appointment Date/Time Appointment Type Appointme nt Facility Name Aug 05, 2023 11:00 AM [place]ATORY [place] [facility] [place] [facility] Aug 14, 2023 06:00 AM [place] [facility] [place] [facility] Aug 28, 2023 11:00 AM [place]ORY [place] [facility] [place] [facility] November 21, 2023 08:00 AM AM[place]ULATORY [place]INE [place] [facility] [place] [facility] December 04, 2023 11:00 AM [place]ATORY [place] [facility] [place] [facility] Dec 23, 2023 11:00 AM [place]ATORY [place] [facility] [place] [facility] Jan 21, 2024 08:00 AM [place]ORY [place] [facility] [place] [facility] Lab Results: +/- 30 days of the encounter This section includes the Chemistry and Hematology Lab Results on record with [place] for the patient. Radiology Reports and Pathology Reports are provided separately, in subsequent sections. Lab Results This section contains the Chemistry/Hematology Results that were resulted 30 days before or 30 daysafter the date of the Encounter. Date/Time Source Result Type Result - Unit Interpretation Reference Range Comment Aug 15, 2023 11:00 AM [facility] MICROALBUMIN CREATININE RATIO PANEL Specimen Type: URINE No comment entered. Ordering Provider: FABI MCKEON Report Released Date/Time: May 12, 2023 12:16 PM Reporting Lab: [place] [facility] [place] [facility] [address] [facility] [address] Performing Lab: [facility] [address] [facility] [facility] [address] MICROALBUMIN/C REATININE RATIO 112.4 mg/g H 0-29.9 MICROALBUMIN,Q UANTITATIVE 1.5 mg/dL RR UNAVAIL CREATININE URINE 13.35 mg/dL Aug 01, 2023 11:00 AM [facility] HEMOGLOBIN A1C PANEL Specimen Type: BLOOD [...] PM Reporting Lab: [facility] [address] [facility] [facility] [address] Performing Lab: [address] [address] HEMOGLOBIN A1C 7.3 H 4.0-5.6 Aug 01, 2023 11:00 AM [facility] LIPID PANEL FASTING Specimen Type: SERUM No comment entered. Ordering Provider: FABI MCKEON Report Released Date/Time: May 12, 2023 12:16 PM Reporting Lab: [address] [address] Performing Lab: [facility] [address] [facility] [facility] [address] CHOLESTEROL 157 mg/dL TRIGLYCERIDE 63 mg/dL 0-150 LDL calculated 65 mg/dL 0-129 CHOL/HDL 2.0 HDL CHOLESTEROL 79 mg/dL H 40-60 Aug 01, 2023 11:00 AM [facility] BASIC METABOLIC PANEL (non-fasting) Specimen Type: SERUM No comment entered. Ordering Provider: FABI MCKEON Report Released Date/Time: May 12, 2023 12:16 PM Reporting Lab: [facility] [address] [facility] [address] Performing Lab: [address] [address] UREA NITROGEN 40 mg/dL H 7-25 GLUCOSE [...] and tobacco- related health factors from the [place] facility where the Encounter took place. Current Smoking Status This section includes the most current smoking, or tobacco-related health factor, from the [place] facility where the Encounter took place. Date/Time Current Smoking Status Comment Benjy pacheco May 07, 2022 09:00 AM VA-TOBACCO FORMER USER [place] [facility] [place] [facility] Tobacco Use History This section includes a history of the smoking, or tobacco-related health factors, that were collected on or before the date of the Encounter. The data comes from the [place] facility where the Encounter took place. Date/Time Smoking Status/Tobac co Use Comment Facility May 07, 2022 09:00 AM VA-TOBACCO QUIT 15 YRS OR MORE [place] [facility] [place] [facility] May 21, 2021 08:00 AM VA-TOBACCO FORMER USER [place] [facility] [place] [facility] May 21, 2021 08:00 AM VA-TOBACCO QUIT 15 YRS OR MORE [place] [facility] [place] [facility] Apr 24, 2020 11:00 AM VA-TOBACCO FORMER USER [place] [facility] [place] [facility] Apr 24, 2020 11:00 AM VA-TOBACCO QUIT 15 YRS OR MORE [place] [facility] [place] [facility] Jan 15, 2018 10:57 AM QUIT TOBACCO USE > 7 YEARS AGO [place] [facility] [place] [facility] Dec 10, 2016 08:53 AM QUIT TOBACCO USE > 7 YEARS AGO [place] [facility] [place] [facility] Jul 19, 2015 10:22 AM QUIT TOBACCO USE > 7 YEARS AGO Quit about 40 years ago. [place] [facility] [place] [facility] November 14, 2004 10:00 AM HISTORY OF SMOKING [place] [facility] [place] [facility] November 14, 2004 10:00 AM LIFETIME NON-SMOKER [place] [facility] [place] [facility] Oct 25, 2003 10:34 AM HISTORY OF SMOKING [place] [facility] [place] [facility] Oct 07, 2002 09:41 AM HISTORY OF SMOKING [place] [facility] [place] [facility] Nov 03, 2001 10:31 AM QUIT TOBACCO USE > 7 YEARS AGO [place] [facility] [place] [facility] Jul 31, 2001 02:15 PM NON-TOBACCO USER [facility] Advance Directives: All historical and current Section Date Range: From patient's date of to the date document was created. This section includes ALL of a patient's completed or amended [place] Advance and Rescinded Directives. The entries below indicate that a directive exists for the patient, but an actual copy is not included with this document. The data comes from all [place] facilities. Date Advance Directives Provider Source Jul 03, 2023 ADVANCE DIRECTIVE RICHARD BAZZI [facility] Encounter Notes: All associated encounter notes This section contains the clinical notes associated to the Encounter. Date/Time Encounter Note(s) Provider Source Aug 04, 2023 10:05 AM ADMINISTRATIVE NOTE: LOCAL TITLE: FAX/MAIL RECEIVED STANDARD TITLE: ADMINISTRATIVE NOTE DATE OF NOTE: AUG 04, 2023@10:05 ENTRY DATE: AUG 04, 2023@10:05:09 AUTHOR: RAMIRO RIVAS EXP COSIGNER: URGENCY: STATUS: COMPLETED Document Received On: Jul Document Type: Office Visit Note Date of Service: Jul Facility and or Provider: ZACK MORALES MD Contact Information: PCP of Record: MARQUES JEFFERY Next visit with PCP: 08/05/2023 11:00 CWM/NO/PODIATRY/YUMI 08/28/2023 11:00 NHM/ENDOCRINE 02/05/2024 11:00 CWM/NO/OPTOMETRY/[facility]HAR Primary Care May keep copies of this document for up to 14 days and send the original for scanning. /genoveva/ RAMIRO AMADO AMSA Signed: 08/04/2023 10:06 Receipt Acknowledged By: 08/04/2023 12:16 /genoveva/ MARQUES AMADO NURSE PRACTITIONER 08/05/2023 12:09 /genoveva/ Millie MEEHAN HB rivet heater RAMIRO RIVAS [facility]
--- OUTSIDE RECORDS SUMMARY | 2024-07-04 16:06 | XMS_ITS | Encounter Summary ---
Author Name [facility] [place] Address [address] [place] [id number] Care Team Providers Care Vacuum Kettle Cook Name Role Phone ROBERT DAVIS Primary Care [...] O MEDEX BRONZ E Jun 06, 2001 [id number] [phone] OMAS PATIENT ANTHEM BCBS OF CT (BLUECARD) MEDICARE SUPPLEMEN BHARGAVI PSUED O MEDEX BRONZ E Jun 06, 2001 [id number] [phone] [place] PAT[place] MED[place] SUPPLEMEN BHARGAVI MEDEX BRONZ E Jun 06, 2001 [id number] [phone] [place] SUPPLEMEN BHARGAVI PSUED O MEDEX BRONZ E Jun 06, 2001 [id number] [phone] HUDRACHEL BOYER OM[place] PATIENT [place] MEDIC[place] SUPPLEMEN BHARGAVI PSUED O MEDEX BRONZ E Jun 06, 2001 [id number] [place],TH OMAS PATIENT MEDICARE (WNR) MEDICARE (M) PART A May 07, 2001 PART A [id number] [place],TH OMAS PATIENT MEDICARE (WNR) MEDICARE (M) PART B May 07, 2001 PART B [id number] HUDOCK,RACHEL OMAS PATIENT MEDICARE (WNR) MEDICARE (M) PART A May 07, 2001 PART A [id number] HUDOCK,RACHEL OMAS PATIENT MEDICARE (WNR) MEDICARE (M) PART B May 07, 2001 PART B [id number] HUDOCK,RACHEL OMAS PATIENT MEDICARE (WNR) MEDICARE () PART A May 07, 2001 PART A [id number] HUDOCK,RACHEL OMAS PATIENT MEDICARE (WNR) MEDICARE (M) PART B May 07, 2001 PART B [id number] HUDOCK,RACHEL OMAS PATIENT MEDICARE (WNR) MEDICARE (M) PART A May 07, 2001 PART A [id number] HUDOCK,RACHEL OMAS PATIENT MEDICARE (WNR) MEDICARE (M) PART B May 07, 2001 PART B [id number] HUDOCK,RACHEL OMAS PATIENT Selected Encounter This section includes the information on record at [place] for the Encounter. Date/Time Encounter Type Encounter Description Reason Provider Source Aug 01, 2023 11:00 AM SELF CARE MNGMENT TRAINING [facility] Nursing (RN / LP) ICD-10-CM E11.9 Type 2 diabetes mellitus without complications MILLIE DAVENPORT Mallory Encounter Template Text not used by [place] Assessments - Encounter Diagnoses This section includes the primary and secondary diagnoses documented for the Encounter. Date/Time Primary/Secondary Diagnosis Diagnosis Name Provider Source Aug 01, 2023 01:57 PM PRIMARY Type 2 diabetes mellitus without complications [place] DAVEN[place] [facility] Plan of Treatment: Future Appointments (+ 6 months) and Future Tests (+/- 45 days) The Plan of Treatment section includes future care activities for the [facility] [place] [facility] This section includes future appointments and future orders which are active, pending or scheduled. Future Appointments This section includes appointments that were scheduled to occur 6 months from the date of the Encounter, up to a maximum of 20 appointments. The data comes from all [place] treatment facilities. Appointment Date/Time Appointment Type Appointme nt Facility Name Aug 05, 2023 11:00 AM AM[place]ULATORY [place]ICINE [place] [facility] [facility] [facility] Aug 14, 2023 06:00 AM [place]UL[place] [facility] Aug 28, 2023 11:00 AM [place]UL[place]INE [place] [facility] November 21, 2023 08:00 AM AM[place]UL[place]INE [place] [facility] December 04, 2023 11:00 AM [place]UL[place]INE [place] [facility] Dec 23, 2023 11:00 AM [place] [facility] Jan 21, 2024 08:00 AM [place] [facility] Lab Results: +/- 30 days of the encounter This section includes the Chemistry and Hematology Lab Results on record with [place] for the patient. Radiology Reports and Pathology Reports are provided separately, in subsequent sections. Lab Results This section contains the Chemistry/Hematology Results that were resulted 30 days before or 30 daysafter the date of the Encounter. Date/Time Source Result Type Result - Unit Interpretation Reference Range Comment Aug 15, 2023 11:00 AM [facility] MICROALBUMIN CREATININE RATIO PANEL Specimen Type: URINE No comment entered. Ordering Provider: FABI MCKEON Report Released Date/Time: May 12, 2023 12:16 PM Reporting Lab: [facility] [address] [facility] [address] Performing Lab: [address] [address] MICROALBUMIN/C REATININE RATIO 112.4 mg/g H 0-29.9 MICROALBUMIN,Q UANTITATIVE 1.5 mg/dL RR UNAVAIL CREATININE URINE 13.35 mg/dL Aug 01, 2023 11:00 AM [facility] HEMOGLOBIN A1C PANEL Specimen Type: BLOOD [...] May 12, 2023 12:16 PM Reporting Lab: [address] [address] Performing Lab: [address] [address] HEMOGLOBIN A1C 7.3 H 4.0-5.6 Aug 01, 2023 11:00 AM [facility] LIPID PANEL FASTING Specimen Type: SERUM No comment entered. Ordering Provider: FABI MCKEON Report Released Date/Time: May 12, 2023 12:16 PM Reporting Lab: [address] [address] Performing Lab: [address] [address] CHOLESTEROL 157 mg/dL TRIGLYCERIDE 63 mg/dL 0-150 LDL calculated 65 mg/dL 0-129 CHOL/HDL 2.0 HDL CHOLESTEROL 79 mg/dL H 40-60 Aug 01, 2023 11:00 AM [facility] BASIC METABOLIC PANEL (non-fasting) Specimen Type: SERUM No comment entered. Ordering Provider: FABI MCKEON Report Released Date/Time: May 12, 2023 12:16 PM Reporting Lab: [address] [address] Performing Lab: [address] [address] UREA NITROGEN 40 mg/dL H 7-25 GLUCOSE 119 mg/dL H 65-100 SODIUM 134 mmol/L L 135-145 POTASSIUM 4.1 mmol/L 3.5-5.0 CHLORIDE 97 mmol/L L 100-110 CO2 28 meq/L 20-30 CREATININE, Serum 1.21 mg/dL 0.50-1.40 eGFR(CKD-EPI 2020) 58 mL/min L >60 Vital Signs: All taken on the encounter date This section contains inpatient and outpatient Vital Signs collected on the date of the Encounter. Date/Time Temperature Pulse Blood Pressure Respiratory Rate SP02 Pain Height Weight Body Mass Index Source Aug 01, 2023 11:00 AM 97.3 72 162/72 18 98 4 [place] [facility] [facility] [place] Social History: Smoking Status (Most current) and Tobacco Use (All prior to encounter date) This section includes the most current, and the historical, smoking and tobacco- related health factors from the [place] facility where the Encounter took place. Current Smoking Status This section includes the most current smoking, or tobacco-related health factor, from the [place] facility where the Encounter took place. Date/Time Current Smoking Status Comment [facility] May 07, 2022 09:00 AM VA-TOBACCO FORMER USER [place] [facility] Tobacco Use History This section includes a history of the smoking, or tobacco-related health factors, that were collected on or before the date of the Encounter. The data comes from the [place] facility where the Encounter took place. Date/Time Smoking Status/Tobac co Use Comment Facility May 07, 2022 09:00 AM VA-TOBACCO QUIT 15 YRS OR MORE [place] [facility] [facility] [facility] May 21, 2021 08:00 AM VA-TOBACCO FORMER USER [place] [facility] May 21, 2021 08:00 AM VA-TOBACCO QUIT 15 YRS OR MORE [place] [facility] [facility] Apr 24, 2020 11:00 AM VA-TOBACCO FORMER USER [place] [facility] Apr 24, 2020 11:00 AM VA-TOBACCO QUIT 15 YRS OR MORE [place] [facility] Jan 15, 2018 10:57 AM QUIT TOBACCO USE > 7 YEARS AGO [place] [facility] [facility] Dec 10, 2016 08:53 AM QUIT TOBACCO USE > 7 YEARS AGO [place] [facility] [facility] Jul 19, 2015 10:22 AM QUIT TOBACCO USE > 7 YEARS AGO Quit about 40 years ago. [facility] November 14, 2004 10:00 AM HISTORY OF SMOKING [facility] November 14, 2004 10:00 AM LIFETIME NON-SMOKER [facility] Oct 25, 2003 10:34 AM H[facility]ORY OF [facility]MOKING [facility] Oct 07, 2002 09:41 AM [facility]MO[facility] Nov 03, 2001 10:31 AM QUIT TOBACCO USE > 7 YEARS AGO [facility] Jul 31, 2001 02:15 PM NON-TOBACCO USER Quit 20 yrs ago [facility] Advance Directives: All historical and current Section Date Range: From patient's date of to the date document was created. This section includes ALL of a patient's completed or amended [place] Advance and Rescinded Directives. The entries below indicate that a directive exists for the patient, but an actual copy is not included with this document. The data comes from all [place] facilities. Date Advance Directives Provider Source Jul 03, 2023 ADVANCE DIRECTIVE RICHARD BAZZI [facility] Encounter Notes: All associated encounter notes This section contains the clinical notes associated to the Encounter. Date/Time Encounter Note(s) Provider Source Aug 01, 2023 01:16 PM HB NURSING NOTE: LOCAL TITLE: HBPC RN PROGRESS NOTE STANDARD TITLE: HB NURSING NOTE DATE OF NOTE: AUG 01, 2023@13:16 ENTRY DATE: AUG 01, 2023@13:16:47 AUTHOR: MILLIE DAVENPORT EXP COSIGNER: URGENCY: STATUS: COMPLETED Nursing Progress Note Active and Recently Outpatient Medications (including Supplies): Active Outpatient Medications Status 1) ATORVASTATIN CALCIUM 80MG TAB TAKE ONE TABLET BY ACTIVE MOUTH ONCE DAILY FOR HIGH CHOLESTEROL 2) CHLORTHALIDONE 50MG TAB TAKE ONE TABLET BY MOUTH ONCE ACTIVE DAILY TO REMOVE FLUID/CONTROL BLOOD PRESSURE 3) CHOLECALCIF 50MCG (D3-2,000UNIT) TAB TAKE TWO TABLETS ACTIVE BY MOUTH TWICE DAILY FOR VITAMIN SUPPLEMENTATION 4) CYANOCOBALAMIN 1000MCG TAB TAKE ONE TABLET BY MOUTH ACTIVE DAILY FOR VITAMIN SUPPLEMENTATION 5) DOCUSATE NA 100MG CAP TAKE ONE CAPSULE BY MOUTH TWICE ACTIVE DAILY NEEDED TO SOFTEN STOOL 6) EMPAGLIFLOZIN 25MG TAB TAKE ONE TABLET BY MOUTH ONCE ACTIVE DAILY 7) FUROSEMIDE 20MG TAB TAKE ONE TABLET BY MOUTH EVERY ACTIVE MORNING TO REMOVE FLUID/CONTROL BLOOD PRESSURE 8) GABAPENTIN 100MG CAP TAKE TWO CAPSULES BY MOUTH AT ACTIVE BEDTIME FOR NERVE PAIN 9) INSULIN SYRINGE 0.5ML 30G 12MM USE 1 SYRINGE ACTIVE SUBCUTANEOUSLY FOUR TIMES DAILY NEEDED FOR INSULIN INJECTIONS 10) INSULIN,ASPART,HUMAN 100 UNIT/ML INJ INJECT 5 UNITS ACTIVE SUBCUTANEOUSLY EVERY MORNING NEEDED AND INJECT 3 UNITS AT NOON AND INJECT 8 UNITS EVERY EVENING BEFORE SUPPER 11) INSULIN,GLARGINE-YFGN 100UNIT/ML INJ INJECT 14 UNITS ACTIVE SUBCUTANEOUSLY ONCE DAILY 12) LISINOPRIL 5MG TAB TAKE ONE TABLET BY MOUTH ONCE ACTIVE DAILY FOR HIGH BLOOD PRESSURE TO CONTROL BLOOD PRESSURE 13) NUTR SUPL GLUCERNA THER NUTR SHAKE RICK DRINK 1 ACTIVE BOTTLE BY MOUTH ONCE DAILY FOR NUTRITIONAL SUPPLEMENTATION Inactive Outpatient Medications Status 1) ACCU-CHEK GUIDE ME (GLUCOSE) METER USE METER TO TEST BLOOD SUGARS THREE TIMES DAILY NEEDED Active Non-VA Medications Status 1) Non-VA ACETAMINOPHEN 500MG TAB 500MG BY MOUTH TWICE ACTIVE DAILY NEEDED 2) Non-VA ASPIRIN 81MG EC TAB 81MG BY MOUTH ONCE DAILY ACTIVE 3) Non-VA MULTIVITAMIN/MINERALS CAP/TAB 1 TABLET BY ACTIVE MOUTH EVERY DAY 4) Non-VA OTHER CAP/TAB IRON 28 MG? BY MOUTH ONCE DAILY ACTIVE 18 Total Medications MEDICATION REVIEW Medication review completed during home visit. The was given the opportunity to discuss and ask questions about all prescription medications as well as dietary and herbal supplements, vitamins, OTC medications, etc. Currently the is taking his/her medications as per the active orders in the electronic record. A copy of the active medication list was left in patient's home at time of visit. identified by: Full Name, Address Length of visit in home: 35min Problem addressed for this visit: Dm HTN Specimen(s) collected during this visit:Able to obtain blood specimen without incidence. L[place]on jesus well. unable to provide urine specimen. Will obtain at next visit. Site: ANTECUBITAL NURSING SUMMARY: RN visit performed in 's home for assessment of chronic disease mgt, CVCP assessment, medication proposal review analyst and oversight, pain mgt, skin assessment, coping and home safety. [place]on is alert,oriented, CONSUMER LOAN MANAGER present. [place] reports to having an echo at [address] [facility] [address] Dr Sewell. He does have a follow up appt. (will request records) reports to seeing Dr Yeager recently. states that his BP was elevated and was told that he could take an extra 5mg could not provide the name of the medication. [place]on states that he has not taken the extra 5mg is on Lisinopril 5mg po daily. His dtr n law manages his prefill box. No change in med box. This rfp writer reccomended that check his BP every morning and record it x 1 week. This rfp writer will follow up with next week on BP readings. Marques Granger informed and agreed with plan. Will request records from Dr Yeager. denies any headache, dizziness, or lightheadedness. BG ranging mostly in the 200's. [place] denies any lows. Denies any ss of hyperglycemia. At next visit will have demonstrate drawing up insulin for accuracy. Blood Pressure: 162/72 (08/01/2023 11:00) Pulse: 72 (08/01/2023 11:00) Respiration: 18 (08/01/2023 11:00) Temperature: 97.3 F [36.3 C] (08/01/2023 11:00) Pain Score: 4 (08/01/2023 11:00)L arm and neck pain. During the night and when standing. Tylenol somewhat effective. EXAMINATION: Lungs:CTA , LEVIN relieved w rest. Sats 98% , thick nail beds. able to obtain pulse ox from side of finger Edema:trace r ankle. wearing diabetic socks and appropriate fitting shoes. followed by podiatry HR:reg Bowel/Bladder:denies any issues. abd soft nontender pos bs x 4 Skin:CDI Home Safety Lives alone . CONSUMER LOAN MANAGER transport to appts and assists with ADLS FALLS NO INFECTIONS NO ER/HOSPITALIZATIONS NO Teaching/goals:Loudon has ongoing complex medical needs and benefits from [facility] interdisciplinary management. [place] and cg are included in decision making. All questions answered, education. regarding medications, disease mgt provided. and caregiver verbalize understanding. will be free from falls, infections, and hospitalizations over the next 30days. Patient verbalizes understanding to above and will call with any concerns or changes in condition. For emergent care call 911. Plan for next visit:Aug 15 Chronic disease mgt. Coronavirus Disease 2019 (COVID-19) Screen The patient was asked if in the last 14 days they have had new onset of any COVID-19 symptoms. They report the following: No symptoms Within the past 14 days, the patient reports no exposure to someone with a febrile/respiratory illness or someone with a known or suspected case of COVID-19 (within 6 feet for > 15 minutes). Result: Screen is negative. 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
--- OUTSIDE RECORDS SUMMARY | 2024-07-04 16:06 | XMS_ITS ---
Author Name [place] Address [address] [place] [address] Care Team Providers Care Information Scientist Name Role Phone ROBERT DAVIS Primary Care [...] O MEDEX BRONZ E Jun [birth year], 2001 [id number] [facility] OMAS PATIENT ANTHEM BCBS OF [place] (BLUECARD) MEDICARE SUPPLEMEN BHARGAVI PSUED O MEDEX BRONZ E Jun 06, 2001 [id number] [phone] [place] SUPPLEMEN BHARGAVI MEDEX BRONZ E Jun 06, 2001 [id number] [facility] [place] SUPPLEMEN BHARGAVI PSUED O MEDEX BRONZ E Jun 06, 2001 [id number] [facility] OMAS PATIENT [place] MED[place] SUPPLEMEN BHARGAVI PSUED O MEDEX BRONSalbador E Jun 06, 2001 [id number] HUDOCK,RACHEL OMAS PATIENT MEDICARE (WNR) MEDICARE (M) PART A May 07, 2001 PART A [id number] HUDOCK,RACHEL OMAS PATIENT MEDICARE (WNR) MEDICARE (M) PART B May 07, 2001 PART B [id number] HUDOCK,RACHEL OMAS PATIENT MEDICARE (WNR) MEDICARE (M) PART A May 07, 2001 PART A [id number] HUDOCK,RACHLE OMAS PATIENT MEDICARE (WNR) MEDICARE (M) PART B May 07, 2001 PART B [id number] HUDMERLIN,RACHEL OMAS PATIENT MEDICARE (WNR) MEDICARE (M) PART A May 07, 2001 PART A [id number] HUDMERLIN,RACHEL OMAS PATIENT MEDICARE (WNR) MEDICARE (M) PART B May 07, 2001 PART B [id number] HUDMERLIN,RACHEL OMAS PATIENT MEDICARE (WNR) MEDICARE (M) PART A May 07, 2001 PART A [id number] ([id number] HUDMERLIN,RACHEL OMAS PATIENT MEDICARE (WNR) MEDICARE (M) PART B May 07, 2001 PART B [id number] HUDRACHEL BOYER OMAS PATIENT Selected Encounter This section includes the information on record at [place] for the Encounter. Date/Time Encounter Type Encounter Description Reason Pro vider Source Aug 02, 2023 10:10 AM Outpatient Encounter ENDOCRINOLOGY IHE Encounter Template Text [...] 20 appointments. The data comes from all [place] treatment facilities. Appointment Date/Time Appointment Type Appointme nt Facility Name Aug 05, 2023 11:00 AM [place] [facility] Aug 14, 2023 06:00 AM [place] [facility] Aug 28, 2023 11:00 AM [place] [facility] November 21, 2023 08:00 AM AM[place]ORY [place] [facility] December 04, 2023 11:00 AM AM[place]ORY [place] [facility] Dec 23, 2023 11:00 AM AM[place]ORY [place] [facility] Jan 21, 2024 08:00 AM [place] [facility] Lab Results: +/- 30 days of the encounter This section includes the Chemistry and Hematology Lab Results on record with [place] for the patient. Radiology Reports and Pathology Reports are provided separately, in subsequent sections. Lab Results This section contains the Chemistry/Hematology Results that were resulted 30 days before or 30 daysafter the date of the Encounter. Date/Time Source Result Type Result - Unit Interpretation Reference Range Comment Aug 15, 2023 11:00 AM [facility] MICROALBUMIN CREATININE RATIO PANEL Specimen Type: URINE No comment entered. Ordering Provider: FABI MCKEON Report Released Date/Time: May 12, 2023 12:16 PM Reporting Lab: [address] [address] Performing Lab: [address] [address] MICROALBUMIN/C REATININE RATIO 112.4 mg/g H 0-29.9 MICROALBUMIN,Q UANTITATIVE 1.5 mg/dL RR UNAVAIL CREATININE URINE 13.35 mg/dL Aug 01, 2023 11:00 [facility] HEMOGLOBIN A1C PANEL Specimen Type: BLOOD [...] May 12, 2023 12:16 PM Reporting Lab: [facility] [address] [facility] [address] Performing Lab: [address] [address] HEMOGLOBIN A1C 7.3 H 4.0-5.6 Aug 01, 2023 11:00 AM [facility] LIPID PANEL FASTING Specimen Type: SERUM No comment entered. Ordering Provider: FABI MCKEON Report Released Date/Time: May 12, 2023 12:16 PM Reporting Lab: [facility] [address] [facility] [address] Performing Lab: [address] [address] CHOLESTEROL 157 mg/dL TRIGLYCERIDE 63 mg/dL 0-150 LDL calculated 65 mg/dL 0-129 CHOL/HDL 2.0 HDL CHOLESTEROL 79 mg/dL H 40-60 Aug 01, 2023 11:00 AM [facility] BASIC METABOLIC PANEL (non-fasting) Specimen Type: SERUM No comment entered. Ordering Provider: FABI MCKEON Report Released Date/Time: May 12, 2023 12:16 PM Reporting Lab: [address] [address] Performing Lab: [address] [address] UREA NITROGEN 40 mg/dL H 7-25 GLUCOSE [...] and tobacco- related health factors from the [place] facility where the Encounter took place. Current Smoking Status This section includes the most current smoking, or tobacco-related health factor, from the [place] facility where the Encounter took place. Date/Time Current Smoking Status Comment [facility] it May 07, 2022 09:00 AM VA-TOBACCO FORMER USER [place] [facility] Tobacco Use History This section includes a history of the smoking, or tobacco-related health factors, that were collected on or before the date of the Encounter. The data comes from the [place] facility where the Encounter took place. Date/Time Smoking Status/Tobac co Use Comment Facility May 07, 2022 09:00 AM VA-TOBACCO QUIT 15 YRS OR MORE [place] [facility] May 21, 2021 08:00 AM VA-TOBACCO FORMER USER [place] [facility] May 21, 2021 08:00 AM VA-TOBACCO QUIT 15 YRS OR MORE [place] [facility] [facility] Apr 24, 2020 11:00 AM VA-TOBACCO FORMER USER [place] [facility] Apr 24, 2020 11:00 AM VA-TOBACCO QUIT 15 YRS OR MORE [place] [facility] Jan 15, 2018 10:57 AM QUIT TOBACCO USE > 7 YEARS AGO [facility] [place] [facility] Dec 10, 2016 08:53 AM QUIT TOBACCO USE > 7 YEARS AGO [place] [facility] [place] [place] [facility] Jul 19, 2015 10:22 AM QUIT TOBACCO USE > 7 YEARS AGO Quit about 40 years ago. [place] [facility] [facility] November 14, 2004 10:00 AM HISTORY OF SMOKING [place] [facility] November 14, 2004 10:00 AM LIFETIME NON-SMOKER [place] [facility] Oct 25, 2003 10:34 AM HISTORY OF SMOKING [place] [facility] Oct 07, 2002 09:41 AM HISTORY OF SMOKING [place] [facility] [facility] Nov 03, 2001 10:31 AM QUIT TOBACCO USE > 7 YEARS AGO [place] [facility] [facility] Jul 31, 2001 02:15 PM NON-TOBACCO USER Quit 20 yrs ago [facility] [place] [facility] Advance Directives: All historical and current Section Date Range: From patient's date of to the date document was created. This section includes ALL of a patient's completed or amended [place] Advance and Rescinded Directives. The entries below indicate that a directive exists for the patient, but an actual copy is not included with this document. The data comes from all [place] facilities. Date Advance Directives Provider Source Jul 03, 2023 ADVANCE DIRECTIVE RICHARD BAZZI [facility] Encounter Notes: All associated encounter notes This section contains the clinical notes associated to the Encounter. Date/Time Encounter Note(s) Provider Source Aug 02, 2023 10:10 AM LETTERS: LOCAL TITLE: PATIENT LETTER (B) STANDARD TITLE: LETTERS DATE OF NOTE: AUG 02, 2023@10:10 ENTRY DATE: AUG 02, 2023@10:11:02 AUTHOR: FABI MCKEON COSIGNER: URGENCY: STATUS: COMPLETED Jul [facility]ON[facility]ALO [facility] [address], [place] [address] Dear , Your recent test results are [...] is fine for age. Your chemistries are also fine. Please call if you have any questions or concerns at [phone] option 2 option 4. Sincerely, MD LINDA Mims [facility]
--- OUTSIDE RECORDS SUMMARY | 2024-07-04 16:06 | XMS_ITS | Encounter Summary ---
Author Name [facility] [place] Organization [facility] [place] Address [address] [place] [id number] Care Team Providers Care Punch Press Setter Name Role Phone ROBERT DAVIS Primary Care [...] O MEDEX BRONZ E Jun 06, 2001 [id number] OMAS PATIENT ANTHEM BCBS OF [place] (BLUECARD) MEDICARE SUPPLEMEN BHARGAVI PSUED O MEDEX BRONZ E Jun 06, 2001 [id number] [phone] [place] SUPPLE[place] BHARGAVI MEDEX BRONZ E Jun 06, 2001 [id number] [place] SUPPLEMEN BHARGAVI PSUED O MEDEX BRONZ E Jun 06, 2001 [id number] HUDRACHEL BOYER OMAS PATIENT BCBS OF [facility] MEDICARE SUPPLEMEN BHARGAVI PSUED O MEDEX BRONZ E Jun 06, 2001 [id number] [phone] HUDOCK,RACHEL OMAS PATIENT MEDICARE (WNR) MEDICARE (M) PART A May 07, 2001 PART A [id number] HUDOCK,RACHEL OMAS PATIENT MEDICARE (WNR) MEDICARE (M) PART B May 07, 2001 PART B [id number] ([id number] HUDOCK,RACHEL OMAS PATIENT MEDICARE (WNR) MEDICARE (M) PART A May 07, 2001 PART A [id number] ([id number] HUDOCK,RACHEL OMAS PATIENT MEDICARE (WNR) MEDICARE () PART A May 07, 2001 PART A [id number] ([id number] HUDOCK,RACHEL OMAS PATIENT MEDICARE (WNR) MEDICARE () PART B May 07, 2001 PART B [id number] HUDOCK,RACHEL OMAS PATIENT MEDICARE (WNR) MEDICARE (M) PART B May 07, 2001 PART B [id number] ([id number] HUDOCK,RACHEL OMAS PATIENT MEDICARE (WNR) MEDICARE () PART A May 07, 2001 PART A [id number] HUDOCK,RACHEL OMAS PATIENT MEDICARE (WNR) MEDICARE () PART B May 07, 2001 PART B [id number] [phone] HUDMERLIN,RACHEL OMAS PATIENT Selected Encounter This section includes the information on record at [place] for the Encounter. Date/Time Encounter Type Encounter Description Reason Provider Source Aug 05, 2023 11:00 AM OFFICE O/P EST SF 10 MIN PODIATRY ICD-10-CM E11.9 Type 2 diabetes mellitus without complications MIKE EASON E Encounter Template Text not used by [place] Assessments - Encounter Diagnoses This section includes the primary and secondary diagnoses documented for the Encounter. Date/Time Primary/Secondary Diagnosis Diagnosis Name Provider Source Aug 05, 2023 11:29 AM PRIMARY Type 2 diabetes mellitus without complications MIKE EASON [facility] [place] [facility] Aug 05, 2023 11:29 AM SECONDARY Tinea unguium MIKE EASON [facility] [place] [facility] Aug 05, 2023 11:29 AM SECONDARY Xerosis cutis MIKE EASON [facility] [place] [facility] Plan of Treatment: Future Appointments (+ 6 months) and Future Tests (+/- 45 days) The Plan of Treatment section includes future care activities for the [facility] [place] [facility] This section includes future appointments and future orders which are active, pending or scheduled. Future Appointments This section includes appointments that were scheduled to occur 6 months from the date of the Encounter, up to a maximum of 20 appointments. The data comes from all [place] treatment facilities. Appointment Date/Time Appointment Type Appointme nt Facility Name Aug 14, 2023 06:00 AM AMBULATORY - MEDICINE [place] [facility] [place] [facility] Aug 28, 2023 11:00 AM AMBULATORY MEDICINE [facility] [place] [facility] November 21, 2023 08:00 AM AMBULATORY - MEDICINE [facility] [place] [facility] December 04, 2023 11:00 AM AMBULATORY - MEDICINE [place] [facility] [place] [facility] Dec 23, 2023 11:00 AM AMBULATORY - MEDICINE [place] [facility] [place] [facility] Jan 21, 2024 08:00 AM AMBULATORY - MEDICINE [place] [facility] [place] [facility] Lab Results: +/- 30 days of the encounter This section includes the Chemistry and Hematology Lab Results on record with [place] for the patient. Radiology Reports and Pathology Reports are provided separately, in subsequent sections. Lab Results This section contains the Chemistry/Hematology Results that were resulted 30 days before or 30 daysafter the date of the Encounter. Date/Time Source Result Type Result - Unit Interpretation Reference Range Comment Aug 15, 2023 11:00 AM [facility] [place] [facility] MICROALBUMIN CREATININE RATIO PANEL Specimen Type: URINE No comment entered. Ordering Provider: FABI MCKEON Report Released Date/Time: May 12, 2023 12:16 PM Reporting Lab: [facility] [place] [address] [address] Performing Lab: [facility] [address] [facility] [address] MICROALBUMIN/C REATININE RATIO 112.4 mg/g H 0-29.9 MICROALBUMIN,Q UANTITATIVE 1.5 mg/dL RR UNAVAIL CREATININE URINE 13.35 mg/dL Aug 01, 2023 11:00 AM [facility] LIPID PANEL FASTING Specimen Type: SERUM No comment entered. Ordering Provider: FABI MCKEON Report Released Date/Time: May 12, 2023 12:16 PM Reporting Lab: [facility] [address] [facility] [address] Performing Lab: [facility] [address] [facility] [address] CHOLESTEROL 157 mg/dL TRIGLYCERIDE 63 mg/dL 0-150 LDL calculated 65 mg/dL 0-129 CHOL/HDL 2.0 HDL CHOLESTEROL 79 mg/dL H 40-60 Aug 01, 2023 11:00 AM [facility] HEMOGLOBIN A1C PANEL Specimen Type: BLOOD [...] May 12, 2023 12:16 PM Reporting Lab: [facility] [address] [facility] [address] Performing Lab: [address] [address] HEMOGLOBIN A1C 7.3 H 4.0-5.6 Aug 01, 2023 11:00 AM [facility] BASIC METABOLIC PANEL (non-fasting) Specimen Type: SERUM No comment entered. Ordering Provider: FABI MCKEON Report Released Date/Time: May 12, 2023 12:16 PM Reporting Lab: [facility] [address] [facility] [address] Performing Lab: [address] [place] [place] [address] UREA NITROGEN 40 mg/dL H 7-25 GLUCOSE [...] and tobacco- related health factors from the [place] facility where the Encounter took place. Current Smoking Status This section includes the most current smoking, or tobacco-related health factor, from the [place] facility where the Encounter took place. Date/Time Current Smoking Status Comment [facility] May 07, 2022 09:00 AM VA[facility]TOBACCO [facility] Tobacco Use History This section includes a history of the smoking, or tobacco-related health factors, that were collected on or before the date of the Encounter. The data comes from the [place] facility where the Encounter took place. Date/Time Smoking Status/Tobac co Use Comment Facility May 07, 2022 09:00 AM VA-TOBACCO QUIT 15 YRS OR MORE [facility] [place] [facility] May 21, 2021 08:00 AM VA-TOBACCO FORMER USER [facility] [place] [facility] May 21, 2021 08:00 AM VA-TOBACCO QUIT 15 YRS OR MORE [facility] [place] [facility] Apr 24, 2020 11:00 AM VA-TOBACCO FORMER USER [facility] [place] [facility] Apr 24, 2020 11:00 AM VA-TOBACCO QUIT 15 YRS OR MORE [facility] [place] [facility] Jan 15, 2018 10:57 AM QUIT TOBACCO USE > 7 YEARS AGO [facility] [place] [facility] Dec 10, 2016 08:53 AM QUIT TOBACCO USE > 7 YEARS AGO [facility] [place] [facility] Jul 19, 2015 10:22 AM QUIT TOBACCO USE > 7 YEARS AGO Quit about 40 years ago. [facility] [place] [facility] November 14, 2004 10:00 AM HISTORY OF SMOKING [facility] November 14, 2004 10:00 AM LIFETIME NON-SMOKER [facility] Oct 25, 2003 10:34 AM [facility]ORY OF SMOKING [facility] Oct 07, 2002 09:41 AM HISTORY OF SMOKING [facility] Nov 03, 2001 10:31 AM QUIT TOBACCO USE > 7 YEARS AGO [facility] Jul 31, 2001 02:15 PM NON-TOBACCO USER Quit 20 yrs ago [facility] Advance Directives: All historical and current Section Date Range: From patient's date of to the date document was created. This section includes ALL of a patient's completed or amended [place] Advance and Rescinded Directives. The entries below indicate that a directive exists for the patient, but an actual copy is not included with this document. The data comes from all [place] facilities. Date Advance Directives Provider Source Jul 03, 2023 ADVANCE DIRECTIVE RICHARD BAZZI [facility] Encounter Notes: All associated encounter notes This section contains the clinical notes associated to the Encounter. Date/Time Encounter Note(s) Provider Source Aug 05, 2023 11:23 AM PODIATRY NOTE: LOCAL TITLE: PODIATRY NOTE STANDARD TITLE: PODIATRY NOTE DATE OF NOTE: AUG 05, 2023@11:23 ENTRY DATE: AUG 05, 2023@11:23:10 AUTHOR: PASTOR EASON EXP COSIGNER: URGENCY: STATUS: COMPLETED S: 88 year-old Type II diabetic male, 20% s.c., seen for diabetic footcare. HbA1c was 7.7% in Jan 2023 Pt. does not smoke , walks for exercise. Last seen Mar 2023 O: Nails: brittle, thickened ,elongated, mycotic 1-5 (B). Incurvated hallux nails (B) medial and lateral borders nails are friable, dystrophic Vascular: DP:faint 1/4 (B). PT:0/4(B) CFT:2 sec(B) Edema: none Hair: present dorsum both feet(B). Sensory: good tactile( 5.07 monofilament) and positional sensations noted . Diminished vibrational sensations distally. No c/o numbness or paresthesia Skin: cool, dry,Plantar skin very dry, rough erythematous hammer toe deformities 1-5 (B) A) onychomycosis 1-5 B/L xerosis cutis diabetes P: Debrided all nails 1-5 (B/L )as needed. Incurvated borders curetted. Skin softener at least daily / powder between toes Rx ammonium lactae 12% lotion at least daily reorder diabetic socks Discussed diabetic foot care rtc 3-4 mos Active Outpatient Medications (including Supplies): Active Outpatient Medications Status 1) ATORVASTATIN CALCIUM 80MG TAB TAKE ONE TABLET BY ACTIVE MOUTH ONCE DAILY FOR HIGH CHOLESTEROL 2) CHLORTHALIDONE 50MG TAB TAKE ONE TABLET BY MOUTH ONCE ACTIVE (S) DAILY TO REMOVE FLUID/CONTROL BLOOD PRESSURE 3) [...] BY MOUTH ONCE DAILY FOR NUTRITIONAL SUPPLEMENTATION Active Non-VA Medications Status 1) Non-VA ACETAMINOPHEN 500MG TAB 500MG BY MOUTH TWICE ACTIVE DAILY NEEDED 2) Non-VA ASPIRIN 81MG EC TAB 81MG BY MOUTH ONCE DAILY ACTIVE 3) Non-VA MULTIVITAMIN/MINERALS CAP/TAB 1 TABLET BY ACTIVE MOUTH EVERY DAY 4) Non-VA OTHER CAP/TAB IRON 28 MG? BY MOUTH ONCE DAILY ACTIVE 17 Total Medications Podiatry related medications reviewed /es/ PASTOR EASON DPM GUN STOCKER Signed: 08/05/2023 11:29 PASTOR EASON [facility]
--- OUTSIDE RECORDS SUMMARY | 2024-07-04 16:07 | XMS_ITS | Encounter Summary ---
Author Name [facility] [place] [facility] [place] Address [address] [place] [id number] Care Team Providers Care Senior Research Scientist Name Role Phone ROBERT DAVIS Primary [...] O MEDEX BRONZ E Jun 06, 2001 [id number] OM[place] PATIENT ANTHEM BCBS OF [place] (BLUECARD) MEDICARE SUPPLEMEN BHARGAVI PSUED O MEDEX BRONZ E Jun 06, 2001 [id number] [place] PAT[place] SUPPLEMEN BHARGAVI MEDEX BRONZ E Jun 06, 2001 [id number] [phone] [place] SUPPLEMEN BHARGAVI PSUED O MEDEX BRONZ E Jun 06, 2001 [id number] HUDOCK,RACHEL OMAS PATIENT [place] SUPPLEMEN BHARGAVI PSUED O MEDEX BRONZ E Jun 06, 2001 [id number] [phone] HUDOCK,TH OMAS PATIENT MEDICARE (WNR) MEDICARE (M) PART A May 07, 2001 PART A [id number] HUDOCK,TH OMAS PATIENT MEDICARE (WNR) MEDICARE (M) PART B May 07, 2001 PART B [id number] HUDOCK,RACHEL OMAS PATIENT MEDICARE (WNR) MEDICARE (M) PART A May 07, 2001 PART A [id number] HUDOCK,RACHEL OMAS PATIENT MEDICARE (WNR) MEDICARE (M) PART B May 07, 2001 PART B [id number] HUDOCK,RACHEL OMAS PATIENT MEDICARE (WNR) MEDICARE () PART A May 07, 2001 PART A [id number] HUDOCK,RACHEL OMAS PATIENT MEDICARE (WNR) MEDICARE (M) PART B May 07, 2001 PART B [id number] HUDOCK,RACHEL OMAS PATIENT MEDICARE (WNR) MEDICARE (M) PART A May 07, 2001 PART A [id number] HUDOCK,RACHEL OMAS PATIENT MEDICARE (WNR) MEDICARE (M) PART B May 07, 2001 PART B [id number] HUDOCK,RACHEL OMAS PATIENT Selected Encounter This section includes the information on [place] at [place] for the Encounter. Date/Time Encounter Type Encounter Description Reason Provider Source Aug 15, 2023 11:00 AM SELF CARE MNGMENT TRAINING [facility] Nursing (RN / LP) ICD-10-CM I10 Essential (primary) hypertension MILLIE DAVENPORT Mallory Encounter Template Text not used by [place] Assessments - Encounter Diagnoses This section includes the primary and secondary diagnoses documented for the Encounter. Date/Time Primary/Secondary Diagnosis Diagnosis Name Provider Source Aug 15, 2023 02:44 PM PRIMARY Essential (primary) hypertension [facility] Aug 15, 2023 02:44 PM SECONDARY Type 2 diabetes mellitus without complications MILLIE DAVENPORT [facility] Plan of Treatment: Future Appointments (+ 6 months) and Future Tests (+/- 45 days) The Plan of Treatment section includes future care activities for the patient from all [place] treatmentfacilities. This section includes future appointments and future orders which are active, pending or scheduled. Future Appointments This section includes appointments that were scheduled to occur 6 months from the date of the Encounter, up to a maximum of 20 appointments. The data comes from all [place] treatment facilities. Appointment Date/Time Appointment Type Appointme nt Facility Name Aug 28, 2023 11:00 AM AMBULATORY MEDICINE [place] [facility] November 21, 2023 08:00 AM AMBULATORY MEDICINE [facility] December 04, 2023 11:00 AM AMBULATORY MEDICINE [facility] Dec 23, 2023 11:00 AM AMBULATORY MEDICINE [facility] Jan 21, 2024 08:00 AM AMBULATORY MEDICINE [facility] Lab Results: +/- 30 days of [...] Range Comment Aug 15, 2023 11:00 AM [facility] MICROALBUMIN CREATININE RATIO PANEL Specimen Type: URINE No comment entered. Ordering Provider: FABI MCKEON Report Released Date/Time: May 12, 2023 12:16 PM Reporting Lab: [facility] [address] [facility] [address] Performing Lab: [facility] [address] [facility] [address] MICROALBUMIN/C REATININE RATIO 112.4 mg/g H 0-29.9 MICROALBUMIN,Q UANTITATIVE 1.5 mg/dL RR UNAVAIL CREATININE URINE 13.35 mg/dL Aug 01, 2023 11:00 AM [facility] HEMOGLOBIN A1C PANEL Specimen Type: BLOOD [...] May 12, 2023 12:16 PM Reporting Lab: [address] [address] Performing Lab: [address] [address] HEMOGLOBIN A1C 7.3 H 4.0-5.6 Aug 01, 2023 11:00 AM [facility] LIPID PANEL FASTING Specimen Type: SERUM No comment entered. Ordering Provider: FABI MCKEON Report Released Date/Time: May 12, 2023 12:16 PM Reporting Lab: [address] [address] Performing Lab: [address] [address] CHOLESTEROL 157 mg/dL TRIGLYCERIDE 63 mg/dL 0-150 LDL calculated 65 mg/dL 0-129 CHOL/HDL 2.0 HDL CHOLESTEROL 79 mg/dL H 40-60 Aug 01, 2023 11:00 AM [facility] BASIC METABOLIC PANEL (non-fasting) Specimen Type: SERUM No comment entered. Ordering Provider: FABI MCKEON Report Released Date/Time: May 12, 2023 12:16 PM Reporting Lab: [address] [address] Performing Lab: [address] [address] UREA NITROGEN 40 mg/dL H 7-25 GLUCOSE [...] Height Weight Body Mass Index Source Aug 15, 2023 02:18 PM 98.6 74 142/72 18 100 1 [place] [facility] [place] [facility] Social History: Smoking Status (Most current) and [...] took place. Date/Time Current Smoking Status Comment [facility] May 07, 2022 09:00 AM VA-TOBACCO [facility] Tobacco Use History This section includes a history of the smoking, or tobacco-related health factors, that were collected on or before the date of the Encounter. The data comes from the [place] facility where the Encounter took place. Date/Time Smoking Status/Tobac co Use Comment Facility May 07, 2022 09:00 AM VA-TOBACCO QUIT 15 YRS OR MORE [place] [facility] [place] [facility] May 21, 2021 08:00 AM VA-TOBACCO FORMER USER [place] [facility] [facility] May 21, 2021 08:00 AM VA-TOBACCO QUIT 15 YRS OR MORE [place] [facility] [facility] Apr 24, 2020 11:00 AM VA-TOBACCO FORMER USER [place] [facility] Apr 24, 2020 11:00 AM VA-TOBACCO QUIT 15 YRS OR MORE [place] [facility] [facility] Jan 15, 2018 10:57 AM QUIT TOBACCO USE > 7 YEARS AGO [place] [facility] [facility] Dec 10, 2016 08:53 AM QUIT TOBACCO USE > 7 YEARS AGO [place] [facility] [place] [facility] Jul 19, 2015 10:22 AM QUIT TOBACCO USE > 7 YEARS AGO Quit about 40 years ago. [facility] November 14, 2004 10:00 AM HISTORY [facility] SMOKING [facility] November 14, 2004 10:00 AM LIFETIME NON-SMOKER [facility] Oct 25, 2003 10:34 AM H[facility]ORY [facility] Oct 07, 2002 09:41 AM HISTORY [facility] SMOKING [facility] Nov 03, 2001 10:31 AM QUIT TOBACCO USE > 7 YEARS AGO [facility] Jul 31, 2001 02:15 PM NON-TOBACCO USER Quit 20 yrs ago [facility] Advance Directives: All historical and current [...] Jul 03, 2023 ADVANCE DIRECTIVE RICHARD BAZZI [facility] Encounter Notes: All associated encounter notes This section contains the clinical notes associated to the Encounter. Date/Time Encounter Note(s) Provider Source Aug 26, 2023 11:16 AM MEDICATION MGT NOT E: [facility] TITLE: MEDICATION RENEWAL STANDARD TITLE: MEDICATION MGT NOTE DATE OF NOTE: AUG 26, 2023@11:16 ENTRY DATE: AUG 26, 2023@11:16:33 AUTHOR: MILLIE DAVENPORT EXP COSIGNER: URGENCY: STATUS: COMPLETED THE FOLLOWING MEDICATIONS REQUIRE RENEWAL PLEASE IF APPROPRIATE CHLORTHALIDONE 50MG TAB TAKE ONE TABLET BY MOUTH ONCE ACTIVE (S) DAILY TO REMOVE FLUID/CONTROL BLOOD PRESSURE FUROSEMIDE 20MG TAB TAKE ONE TABLET BY MOUTH EVERY ACTIVE MORNING TO REMOVE FLUID/CONTROL BLOOD PRESSURE GABAPENTIN 100MG CAP TAKE TWO CAPSULES BY MOUTH AT ACTIVE BEDTIME FOR NERVE PAIN /es/ Millie MEEHAN [facility] identifier horse Signed: 08/26/2023 11:17 Receipt Acknowledged By: 08/28/2023 13:42 /genoveva/ MARQUES GRANGER [facility] NURSE PRACTITIONER [facility]IE DAV[facility]PORT [facility] Aug 15, 2023 02:45 PM ADDENDUM: LOCAL TITLE: Addendum STANDARD TITLE: ADDENDUM DATE OF NOTE: AUG 15, 2023@14:45:18 ENTRY DATE: AUG 15, 2023@14:45:19 AUTHOR: MILLIE DAVENPORT COSIGNER: URGENCY: STATUS: COMPLETED ALERT TO MARQUES GRANGER REGISTERED NURSE CARDIOVASCULAR ICU: IS TOLERATING INCREASE IN LISINOPRIL 10MG PO DAILY. (RECCOMENDED BY DR FABIAN MENESES PCP, RECORDS OBTAINED WITH RECCOMENDATIONS AND [place]ORD)PLEASE ORDER IF IN AGREEMENT /es/ Millie MEEHAN [facility] identifier horse Signed: 08/15/2023 14:46 Receipt Acknowledged By: 08/15/2023 16:59 /es/ MARQUES GRANGER SON NURSE PRACTITIONER --- Original Document --- 08/15/23 HB RN PROGRESS NOTE: Nursing Progress Note Active and Recently Outpatient Medications (including Supplies): Active Outpatient Medications Status 1) AMMONIUM LACTATE 12% LOTION APPLY MODERATE AMOUNT ACTIVE TOPICALLY ONCE DAILY FOR DRY IRRITATED SKIN 2) ATORVASTATIN CALCIUM 80MG TAB TAKE ONE TABLET BY ACTIVE MOUTH ONCE DAILY FOR HIGH CHOLESTEROL 3) CHLORTHALIDONE 50MG TAB TAKE ONE TABLET BY MOUTH ONCE ACTIVE (S) DAILY TO REMOVE FLUID/CONTROL BLOOD PRESSURE 4) CHOLECALCIF 50MCG (D3-2,000UNIT) TAB TAKE TWO TABLETS ACTIVE BY MOUTH TWICE DAILY FOR VITAMIN SUPPLEMENTATION 5) CYANOCOBALAMIN 1000MCG TAB TAKE ONE TABLET BY MOUTH ACTIVE DAILY FOR VITAMIN SUPPLEMENTATION 6) DOCUSATE NA 100MG CAP TAKE ONE CAPSULE BY MOUTH TWICE ACTIVE DAILY NEEDED TO SOFTEN STOOL 7) EMPAGLIFLOZIN 25MG TAB TAKE ONE TABLET BY MOUTH ONCE ACTIVE DAILY 8) FUROSEMIDE 20MG TAB TAKE ONE TABLET BY MOUTH EVERY ACTIVE MORNING TO REMOVE FLUID/CONTROL BLOOD PRESSURE 9) GABAPENTIN 100MG CAP TAKE TWO CAPSULES BY MOUTH AT ACTIVE BEDTIME FOR NERVE PAIN 10) INSULIN SYRINGE 0.5ML 30G 12MM USE 1 SYRINGE ACTIVE SUBCUTANEOUSLY FOUR TIMES DAILY NEEDED FOR INSULIN INJECTIONS 11) INSULIN,ASPART,HUMAN 100 UNIT/ML INJ INJECT 5 UNITS ACTIVE SUBCUTANEOUSLY EVERY MORNING NEEDED AND INJECT 3 UNITS AT NOON AND INJECT 8 UNITS EVERY EVENING BEFORE SUPPER 12) INSULIN,GLARGINE-YFGN 100UNIT/ML INJ INJECT 14 UNITS ACTIVE SUBCUTANEOUSLY ONCE DAILY 13) LISINOPRIL 5MG TAB TAKE ONE TABLET BY MOUTH ONCE ACTIVE DAILY FOR HIGH BLOOD PRESSURE TO CONTROL BLOOD PRESSURE 14) NUTR SUPL GLUCERNA THER NUTR SHAKE RICK [...] 28 MG? BY MOUTH ONCE DAILY ACTIVE 19 Total Medications New Medication Education. New Medication Education Indicated: new medication(s) started since last visit where medication reconciliation was performed or at this visit. Name of new medication(s): lisinopril dose increased to 10mg po daily. Per Dr Yeager records in chart. Education provided to patient/caregiver for new medication(s) provided based on individual needs, regarding the following: Medication(s) name, type and reason for use, Anticipated actions and potential side effects, How to monitor effects of the medication Did patient/caregiver understand medication education provided? Yes Verbalized understanding, Patient/caregiver demonstrates understanding, Other: pt has bp machine in home to use to monitor bp MEDICATION REVIEW Medication review completed during home [...] Name, Address Length of visit in home: 30min Problem addressed for this visit: monitor BP medication education obtain urine Specimen(s) collected during this visit: Urine NURSING SUMMARY: RN visit performed in 's home for assessment of chronic disease mgt, CVCP assessment, medication review trainer and oversight, pain mgt, skin assessment, coping and home safety. [place] is alert oriented. DENTURE FINISHER present who assists with Adls and Iadls. just started taking Lisinopril 10mg po daily from 5mg po daily per Dr Yeager records obtained to reconcilie meds. Marques Granger informed and [place] [facility] [place]. Bp has improved with the decrease in meds. [place] denies any lightheadedness, dizziness or headache. Education provided with to try to decrease food high in sodium. does eat prepared frozen meals a few times a week. [place] states understanding. [place]'s dnl prefills 's medications on Friday. Written note left at the home as well as VM left with her about the change in doseage. [place] has bp machine in the home and is familar on how to use it. BG running in 200's/ Recent A1C 7.3 [place] encouraged to limit sugary snacks, drinks and foods high in CHO . [place] denies any ss of Hyperglycemia Education provided with [place] on foot care. Blood Pressure: 142/72 (08/15/2023 14:18) Pulse: 74 (08/15/2023 14:18) Respiration: 18 (08/15/2023 14:18) Temperature: 98.6 F [37.0 C] (08/15/2023 14:18) Pain Score: 1 (08/15/2023 14:18)neck back pain with ambulation. Managed with Tylenol EXAMINATION: Lungs: CTA NAD Edema: None noted. PPP , wearing properly fitting sneakers HR:Reg denies any cp or palp Bowel/Bladder:Denies any issues Skin:thick nail beds Home Safety Lives alone. DENTURE FINISHER services to assist with adls. Family very supportive FALLS NO INFECTIONS NO ER/HOSPITALIZATIONS NO Teaching/goals: [place] has ongoing complex medical needs and benefits from [facility] interdisciplinary management. and cg are included in decision making. All questions answered, education. regarding medications, disease mgt provided. and caregiver verbalize understanding. [place] will be free from falls, infections, and hospitalizations over the next 30 days. Patient verbalizes understanding to above and will call with any concerns or changes in condition. For emergent care call 911. Plan for next visit:September 11 Chronic disease mgt /es/ Millie MEEHAN [facility] identifier horse Signed: 08/15/2023 14:44 MILLIE DAVENPORT [place] [facility] Aug 15, 2023 02:20 PM [facility] NURSING NOTE: LOCAL TITLE: [facility] RN PROGRESS NOTE STANDARD TITLE: HB NURSING NOTE DATE OF NOTE: AUG 15, 2023@14:20 ENTRY DATE: AUG 15, 2023@14:20:55 AUTHOR: MILLIE DAVENPORT EXP COSIGNER: URGENCY: STATUS: COMPLETED [facility] RN PROGRESS NOTE Has ADDENDA Nursing Progress Note Active and Recently Outpatient Medications (including Supplies): Active Outpatient Medications Status 1) AMMONIUM LACTATE 12% LOTION APPLY MODERATE AMOUNT ACTIVE TOPICALLY ONCE DAILY FOR DRY IRRITATED SKIN 2) ATORVASTATIN CALCIUM 80MG TAB TAKE ONE TABLET BY ACTIVE MOUTH ONCE DAILY FOR HIGH CHOLESTEROL 3) CHLORTHALIDONE 50MG TAB TAKE ONE TABLET BY MOUTH ONCE ACTIVE (S) DAILY TO REMOVE FLUID/CONTROL BLOOD PRESSURE 4) CHOLECALCIF 50MCG (D3-2,000UNIT) TAB TAKE TWO TABLETS ACTIVE BY MOUTH TWICE DAILY FOR VITAMIN SUPPLEMENTATION 5) CYANOCOBALAMIN 1000MCG TAB TAKE ONE TABLET BY MOUTH ACTIVE DAILY FOR VITAMIN SUPPLEMENTATION 6) DOCUSATE NA 100MG CAP TAKE ONE CAPSULE BY MOUTH TWICE ACTIVE DAILY NEEDED TO SOFTEN STOOL 7) EMPAGLIFLOZIN 25MG TAB TAKE ONE TABLET BY MOUTH ONCE ACTIVE DAILY 8) FUROSEMIDE 20MG TAB TAKE ONE TABLET BY MOUTH EVERY ACTIVE MORNING TO REMOVE FLUID/CONTROL BLOOD PRESSURE 9) GABAPENTIN 100MG CAP TAKE TWO CAPSULES BY MOUTH AT ACTIVE BEDTIME FOR NERVE PAIN 10) INSULIN SYRINGE 0.5ML 30G 12MM USE 1 SYRINGE ACTIVE SUBCUTANEOUSLY FOUR TIMES DAILY NEEDED FOR INSULIN INJECTIONS 11) INSULIN,ASPART,HUMAN 100 UNIT/ML INJ INJECT 5 UNITS ACTIVE SUBCUTANEOUSLY EVERY MORNING NEEDED AND INJECT 3 UNITS AT NOON AND INJECT 8 UNITS EVERY EVENING BEFORE SUPPER 12) INSULIN,GLARGINE-YFGN 100UNIT/ML INJ INJECT 14 UNITS ACTIVE SUBCUTANEOUSLY ONCE DAILY 13) LISINOPRIL 5MG TAB TAKE ONE TABLET BY MOUTH ONCE ACTIVE DAILY FOR HIGH BLOOD PRESSURE TO CONTROL BLOOD PRESSURE 14) NUTR SUPL GLUCERNA THER NUTR SHAKE RICK [...] 28 MG? BY MOUTH ONCE DAILY ACTIVE 19 Total Medications New Medication Education. New Medication Education Indicated: new medication(s) started since last visit where medication reconciliation was performed or at this visit. Name of new medication(s): lisinopril dose increased to 10mg po daily. Per Dr Yeager records in chart. Education provided to patient/caregiver for new medication(s) provided based on individual needs, regarding the following: Medication(s) name, type and reason for use, Anticipated actions and potential side effects, How to monitor effects of the medication Did patient/caregiver understand medication education provided? Yes Verbalized understanding, Patient/caregiver demonstrates understanding, Other: pt has bp machine in home to use to monitor bp MEDICATION REVIEW Medication review completed during home [...] in patient's home at time of visit. [place] identified by: Full Name, Address Length of visit in home: 30min Problem addressed for this visit: monitor BP medication education obtain urine Specimen(s) collected during this visit: Urine NURSING SUMMARY: RN visit performed in 's home for assessment of chronic disease mgt, CVCP assessment, medication review trainer and oversight, pain mgt, skin assessment, coping and home safety. [place] is alert oriented. DENTURE FINISHER present who assists with Adls and Iadls. [place] just started taking Lisinopril 10mg po daily from 5mg po daily per Dr Yeager records obtained to reconcilie meds. Marques Granger informed and [facility]. Bp has improved with the decrease in meds. [place] denies any lightheadedness, dizziness or headache. Education provided with to try to decrease food high in sodium. does eat prepared frozen meals a few times a week. states understanding. [place]'s dnl prefills 's medications on Friday. Written note left at the home as well as VM left with her about the change in doseage. [place] has bp machine in the home and is familar on how to use it. BG running in 200's/ Recent A1C 7.3 encouraged to limit sugary snacks, drinks and foods high in CHO . denies any ss of Hyperglycemia Education provided with [place] on foot care. Blood Pressure: 142/72 (08/15/2023 14:18) Pulse: 74 (08/15/2023 14:18) Respiration: 18 (08/15/2023 14:18) Temperature: 98.6 F [37.0 C] (08/15/2023 14:18) Pain Score: 1 (08/15/2023 14:18)neck back pain with ambulation. Managed with Tylenol EXAMINATION: Lungs: CTA NAD Edema: None noted. PPP , wearing properly fitting sneakers HR:Reg denies any cp or palp Bowel/Bladder:Denies any issues Skin:thick nail beds Home Safety Lives alone. DENTURE FINISHER services to assist with adls. Family very supportive FALLS NO INFECTIONS NO ER/HOSPITALIZATIONS NO Teaching/goals: has ongoing complex medical needs and benefits from [facility] interdisciplinary management. and cg are included in decision making. All questions answered, education. regarding medications, disease mgt provided. [place] and caregiver verbalize understanding. [place] will be free from falls, infections, and hospitalizations over the next 30 days. Patient verbalizes understanding to above and will call with any concerns or changes in condition. For emergent care call 911. Plan for next visit:September 11 Chronic disease mgt /genoveva/ Millie MEEHAN [facility] identifier horse Signed: 08/15/2023 14:44 08/15/2023 ADDENDUM STATUS: COMPLETED ALERT TO MARQUES GRANGER REGISTERED NURSE CARDIOVASCULAR ICU: IS TOLERATING INCREASE IN LISINOPRIL 10MG PO DAILY. (RECCOMENDED BY DR FABIAN MENESES PCP, RECORDS OBTAINED WITH RECCOMENDATIONS AND [place]ORD)PLEASE ORDER IF IN AGREEMENT /eliz AMADO identifier horse Signed: 08/15/2023 14:46 Receipt Acknowledged By: * AWAITING SIGNATURE * MARQUES GRANGER DAWN [place] [facility]
--- OUTSIDE RECORDS SUMMARY | 2024-07-04 16:07 | XMS_ITS | Encounter Summary ---
Author Name Department of [facility] [place] Organization [facility] of [place] [place] Address [address] [place] [address] Care Team Providers Care Associate Professor Of Communication Name Role Phone ROBERT DAVIS Primary Care [...] O MEDEX BRONZ E Jun 06, 2001 [id number] OMAS PATIENT ANTHEM BCBS OF [place] (BLUECARD) MEDICARE SUPPLEMEN BHARGAVI PSUED O MEDEX BRONZ E Jun 06, 2001 [id number] [phone] [place] PAT[place] MED[place] SUPPLEMEN BHARGAVI MEDEX BRONZ E Jun 06, 2001 [id number] [place] SUPPLEMEN BHARGAVI PSUED O MEDEX BRONZ E Jun 06, 2001 [id number] HUDRACHEL BOYER OMAS PATIENT [place] MEDICARE SUPPLEMEN BHARGAVI PSUED O MEDEX BRONSalbador E Jun 06, 2001 [id number] HUDMERLIN,RACHEL OMAS PATIENT MEDICARE (WNR) MEDICARE (M) PART A May 07, 2001 PART A [id number] HUDOCK,RACHEL OMAS PATIENT MEDICARE (WNR) MEDICARE (M) PART B May 07, 2001 PART B [id number] ([id number] HUDOCK,RACHEL OMAS PATIENT MEDICARE (WNR) MEDICARE (M) PART A May 07, 2001 PART A [id number] ([id number] HUDOCK,RACHEL OMAS PATIENT MEDICARE (WNR) MEDICARE (M) PART B May 07, 2001 PART B [id number] ([id number] HUDMERLIN,RACHEL OMAS PATIENT MEDICARE (WNR) MEDICARE (M) PART A May 07, 2001 PART A [id number] HUDMERLIN,RACHEL OMAS PATIENT MEDICARE (WNR) MEDICARE (M) PART B May 07, 2001 PART B [id number] HUDMERLIN,RACHEL OMAS PATIENT MEDICARE (WNR) MEDICARE (M) PART A May 07, 2001 PART A [id number] ([id number] HUDMERLIN,RACHEL OMAS PATIENT MEDICARE (WNR) MEDICARE (M) PART B May 07, 2001 PART B [id number] ([id number] HUDRACHEL BOYER OMGUANACO PATIENT Selected Encounter This section includes the information on record at [place] for the Encounter. Date/Time Encounter Type Encounter Description Reason Pro vider Source Aug 20, 2023 02:28 PM Outpatient Encounter COMMUNITY CARE CONSULT IHE Encounter Template Text not used by [...] 20 appointments. The data comes from all [place] treatment facilities. Appointment Date/Time Appointment Type Appointme nt Facility Name Aug 28, 2023 11:00 AM AMBULATORY - MEDICINE [place] [facility] November 21, 2023 08:00 AM AMBULATORY - MEDICINE [place] [facility] December 04, 2023 11:00 AM AMBULATORY - MEDICINE [place] [facility] Dec 23, 2023 11:00 AM AMBULATORY - MEDICINE [place] [facility] Jan 21, 2024 08:00 AM [facility] Lab Results: +/- 30 days of the encounter This section includes the Chemistry and Hematology Lab Results on record with ME for the patient. Radiology Reports and Pathology Reports are provided separately, in subsequent sections. Lab Results This section contains the Chemistry/Hematology Results that were resulted 30 days before or 30 daysafter the date of the Encounter. Date/Time Source Result Type Result - Unit Interpretation Reference Range Comment Aug 15, 2023 11:00 AM [facility] MICROALBUMIN CREATININE RATIO PANEL Specimen Type: URINE No comment entered. Ordering Provider: FABI MCKEON Report Released Date/Time: May 12, 2023 12:16 PM Reporting Lab: [address] [address] Performing Lab: [address] [address] MICROALBUMIN/C REATININE RATIO 112.4 mg/g H 0-29.9 MICROALBUMIN,Q UANTITATIVE 1.5 mg/dL RR UNAVAIL CREATININE URINE 13.35 mg/dL Aug 01, 2023 11:00 AM [facility] HEMOGLOBIN A1C PANEL Specimen Type: BLOOD Comment: [...] May 12, 2023 12:16 PM Reporting Lab: [facility] [address] [facility] [address] Performing Lab: [facility] [address] [facility] [address] HEMOGLOBIN A1C 7.3 H 4.0-5.6 Aug 01, 2023 11:00 AM [facility] LIPID PANEL FASTING Specimen Type: SERUM No comment entered. Ordering Provider: FABI MCKEON Report Released Date/Time: May 12, 2023 12:16 PM Reporting Lab: [facility] [address] [facility] [address] Performing Lab: [address] [address] CHOLESTEROL 157 mg/dL TRIGLYCERIDE 63 mg/dL 0-150 LDL calculated 65 mg/dL 0-129 CHOL/HDL 2.0 HDL CHOLESTEROL 79 mg/dL H 40-60 Aug 01, 2023 11:00 AM [facility] BASIC METABOLIC PANEL (non-fasting) Specimen Type: SERUM No comment entered. Ordering Provider: FABI MCKEON Report Released Date/Time: May 12, 2023 12:16 PM Reporting Lab: [facility] [address] [facility] [address] Performing Lab: [address] [address] UREA NITROGEN 40 mg/dL H 7-25 GLUCOSE [...] and tobacco- related health factors from the [place] facility where the Encounter took place. Current Smoking Status This section includes the most current smoking, or tobacco-related health factor, from the [place] facility where the Encounter took place. Date/Time Current Smoking Status Comment Benjy pacheco May 07, 2022 09:00 AM [facility]CO [facility] Tobacco Use History This section includes a history of the smoking, or tobacco-related health factors, that were collected on or before the date of the Encounter. The data comes from the [place] facility where the Encounter took place. Date/Time Smoking Status/Tobac co Use Comment Facility May 07, 2022 09:00 AM VA-TOBACCO QUIT 15 YRS OR MORE [place] [facility] [place] [facility] May 21, 2021 08:00 AM VA-TOBACCO FORMER USER [place] [facility] [place] [facility] May 21, 2021 08:00 AM VA-TOBACCO QUIT 15 YRS OR MORE [facility] Apr 24, 2020 11:00 AM VA-TOBACCO FORMER USER [place] [facility] Apr 24, 2020 11:00 AM VA-TOBACCO QUIT 15 YRS OR MORE [place] [facility] Jan 15, 2018 10:57 AM QUIT TOBACCO USE > 7 YEARS AGO [place] [facility] [facility] Dec 10, 2016 08:53 AM QUIT TOBACCO USE > 7 YEARS AGO [place] [facility] Jul 19, 2015 10:22 AM QUIT TOBACCO USE > 7 YEARS AGO Quit about 40 years ago. [place] [facility] [facility] November 14, 2004 10:00 AM HISTORY OF SMOKING [place] [facility] November 14, 2004 10:00 AM LIFETIME NON-SMOKER [place]TR [place] [facility] Oct 25, 2003 10:34 AM HISTORY OF SMOKING [place] [facility] Oct 07, 2002 09:41 AM HISTORY OF SMOKING [place] [facility] Nov 03, 2001 10:31 AM QUIT TOBACCO USE > [facility] [place] [facility] Jul 31, 2001 02:15 PM NON-TOBACCO USER Quit 20 yrs ago [facility] Advance Directives: All historical and current Section Date Range: From patient's date of to the date document was created. This section includes ALL of a patient's completed or amended VA Advance and Rescinded Directives. The entries below indicate that a directive exists for the patient, but an actual copy is not included with this document. The data comes from all [place] facilities. Date Advance Directives Provider Source Jul 03, 2023 ADVANCE DIRECTIVE RICHARD BAZZI [place] [facility] Encounter Notes: All associated encounter notes This section contains the clinical notes associated to the Encounter. Date/Time Encounter Note(s) Provider Source Aug 20, 2023 02:28 PM ADMINISTRATIVE NOTE: LOCAL TITLE: ADMINISTRATIVE NOTE STANDARD TITLE: ADMINISTRATIVE NOTE DATE OF NOTE: AUG 20, 2023@14:28 ENTRY DATE: AUG 20, 2023@14:28:55 AUTHOR: HOANG NGUYỄN COSIGNER: URGENCY: STATUS: COMPLETED community provider is seeking for continuation of care referal-cardiology [facility] [address], [address] (providers suite) [place] [address] Fax: New patient info: [phone] Established pts: [phone] Tax ID: [id number] prior referal ended on 08-05-23 has an appointment on 08-14-23@415pm /genoveva/ HOANG NGUYỄN Signed: 08/20/2023 14:31 Receipt Acknowledged By: 08/20/2023 15:16 /es/ MARQUES AMADO NURSE PRACTITIONER 08/20/2023 15:58 /es/ Millie AMADO hogshead hooper 08/20/2023 14:36 /es/ CHERYL COX, WHEAT FARMER NURSE HOANG NGUYỄNRL [facility]
--- OUTSIDE RECORDS SUMMARY | 2024-07-04 16:07 | XMS_ITS ---
Author Name Department of [facility] Affairs ([place]) Organization [facility] Address [address] [place] [address] Care Team Providers Care Contractor Field Hauling Name Role Phone ROBERT DAVIS Primary Care [...] O MEDEX BRONZ E [birth year], 2001 [id number] [phone] OMAS PATIENT ANTHEM BCBS OF CT (BLUECARD) MEDICARE SUPPLEMEN BHARGAVI PSUED O MEDEX BRONZ E Jun 06, 2001 [id number] [phone] OMAS PATIENT [place]BS [place] MEDICARE SUPPLEMEN BHARGAVI MEDEX BRONZ E Jun 06, 2001 [id number] OM[place] PATIENT [place] MED[place] SUPPLEMEN BHARGAVI PSUED O MEDEX BRONZ E Jun 06, 2001 [id number] HUDRACHEL BOYER OMAS PATIENT BCBS OF [facility] MEDICARE SUPPLEMEN BHARGAVI PSUED O MEDEX BRONZ E Jun 06, 2001 [id number] HUDOCK,RACHEL OMAS PATIENT MEDICARE (WNR) MEDICARE (M) PART A May 07, 2001 PART A [id number] ([id number] HUDOCK,RACHEL OMAS PATIENT MEDICARE (WNR) MEDICARE (M) PART B May 07, 2001 PART B [id number] ([id number] HUDOCK,RACHEL OMAS PATIENT MEDICARE (WNR) MEDICARE (M) PART A May 07, 2001 PART A [id number] HUDOCK,RACHEL OMAS PATIENT MEDICARE (WNR) MEDICARE (M) PART B May 07, 2001 PART B [id number] HUDOCK,RACHEL OMAS PATIENT MEDICARE (WNR) MEDICARE (M) PART A May 07, 2001 PART A [id number] ([id number] HUDOCK,RACHEL OMAS PATIENT MEDICARE (WNR) MEDICARE (M) PART B May 07, 2001 PART B [id number] ([id number] HUDOCK,RACHEL OMAS PATIENT MEDICARE (WNR) MEDICARE (M) PART A May 07, 2001 PART A [id number] HUDOCK,RACHEL OMAS PATIENT MEDICARE (WNR) MEDICARE (M) PART B May 07, 2001 PART B [id number] HUDMERLIN,RACHEL OMAS PATIENT Selected Encounter This section includes the information on record at [place] for the Encounter. 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 Date/Time Primary/Secondary Diagnosis Diagnosis Name Provider Source Sep 02, 2023 04:27 PM PRIMARY Essential (primary) hypertension [facility] Plan of Treatment: Future Appointments (+ 6 months) and Future Tests (+/- 45 days) The Plan of Treatment section includes future care activities for the patient from [facility] [place] [facility]. This section includes future appointments and future orders which are active, pending or scheduled. Future Appointments This section includes appointments that were scheduled to occur 6 months from the date of the Encounter, up to a maximum of 20 appointments. The data comes from all [place] treatment facilities. Appointment Date/Time Appointment Type Appointme nt Facility Name Aug 14, 2023 06:00 AM AMBULATORY - MEDICINE [facility] Aug 28, 2023 11:00 AM AMBULATORY MEDICINE [place] [facility] November 21, 2023 08:00 AM AMBULATORY MEDICINE [place] C [place] [facility] December 04, 2023 11:00 AM AMBULATORY MEDICINE [facility] [place] [facility] Dec 23, 2023 11:00 AM AMBULATORY MEDICINE [facility] [place] [facility] Jan 21, 2024 08:00 AM AMBULATORY MEDICINE [facility] Lab Results: +/- 30 days of the encounter This section includes the Chemistry and Hematology Lab Results on record with [place] for the patient. Radiology Reports and Pathology Reports are provided separately, in subsequent sections. Lab Results This section contains the Chemistry/Hematology Results that were resulted 30 days before or 30 daysafter the date of the Encounter. Date/Time Source Result Type Result - Unit Interpretation Reference Range Comment Aug 15, 2023 11:00 [facility] MICROALBUMIN CREATININE RATIO PANEL Specimen Type: URINE No comment entered. Ordering Provider: FABI MCKEON Report Released Date/Time: May 12, 2023 12:16 PM Reporting Lab: [facility] [address] [facility] [address] Performing Lab: [address] [address] MICROALBUMIN/C REATININE RATIO 112.4 mg/g H 0-29.9 MICROALBUMIN,Q UANTITATIVE 1.5 mg/dL RR UNAVAIL CREATININE URINE 13.35 mg/dL Aug 01, 2023 11:00 AM [facility] HEMOGLOBIN A1C PANEL Specimen Type: BLOOD Comment: [...] May 12, 2023 12:16 PM Reporting Lab: [address] [address] Performing Lab: [address] [address] HEMOGLOBIN A1C 7.3 H 4.0-5.6 Aug 01, 2023 11:00 AM [facility] LIPID PANEL FASTING Specimen Type: SERUM No comment entered. Ordering Provider: FABI MCKEON Report Released Date/Time: May 12, 2023 12:16 PM Reporting Lab: [facility] [address] [facility] [address] Performing Lab: [address] [address] CHOLESTEROL 157 mg/dL TRIGLYCERIDE 63 mg/dL 0-150 LDL calculated 65 mg/dL 0-129 CHOL/HDL 2.0 HDL CHOLESTEROL 79 mg/dL H 40-60 Aug 01, 2023 11:00 AM [facility] BASIC METABOLIC PANEL (non-fasting) Specimen Type: SERUM No comment entered. Ordering Provider: FABI MCKEON Report Released Date/Time: May 12, 2023 12:16 PM Reporting Lab: [address] [address] Performing Lab: [address] [address] UREA NITROGEN 40 mg/dL H 7-25 GLUCOSE [...] and tobacco- related health factors from the [place] facility where the Encounter took place. Current Smoking Status This section includes the most current smoking, or tobacco-related health factor, from the [place] facility where the Encounter took place. Date/Time Current Smoking Status Comment [facility] it May 07, 2022 09:00 AM VA-TOBACCO FORMER USER IN [place] [facility] Tobacco Use History This section includes a history of the smoking, or tobacco-related health factors, that were collected on or before the date of the Encounter. The data comes from the [place] facility where the Encounter took place. Date/Time Smoking Status/Tobac co Use Comment Facility May 07, 2022 09:00 AM VA-TOBACCO QUIT 15 YRS OR MORE IN [place] [facility] May 21, 2021 08:00 AM VA-TOBACCO FORMER USER IN [facility] [place] [facility] May 21, 2021 08:00 AM VA-TOBACCO QUIT 15 YRS OR MORE IN [place] [place] [facility] Apr 24, 2020 11:00 AM VA-TOBACCO FORMER USER IN [facility] [place] [facility] Apr 24, 2020 11:00 AM VA-TOBACCO QUIT 15 YRS OR MORE IN [facility] [place] [facility] Jan 15, 2018 10:57 AM QUIT TOBACCO USE > 7 YEARS AGO IN [place] [facility] Dec 10, 2016 08:53 AM QUIT TOBACCO USE > 7 YEARS AGO IN [place] [facility] Jul 19, 2015 10:22 AM QUIT TOBACCO USE > 7 YEARS AGO Quit about 40 years ago. IN [place] [facility] November 14, 2004 10:00 AM HISTORY OF SMOKING IN [place] [facility] November 14, 2004 10:00 AM LIFETIME NON-SMOKER IN [place] [place] [facility] Oct 25, 2003 10:34 AM HISTORY OF SMOKING [facility] Oct 07, 2002 09:41 AM HISTORY OF SMOKING [facility] Nov 03, 2001 10:31 AM QUIT TOBACCO USE > 7 YEARS AGO [facility] Jul 31, 2001 02:15 PM NON-TOBACCO USER Quit 20 yrs ago [facility] Advance Directives: All historical and current Section Date Range: From patient's date of to the date document was created. This section includes ALL of a patient's completed or amended [place] Advance and Rescinded Directives. The entries below indicate that a directive exists for the patient, but an actual copy is not included with this document. The data comes from all [place] facilities. Date Advance Directives Provider Source Jul 03, 2023 ADVANCE DIRECTIVE RICHARD BAZZI [facility] Encounter Notes: All associated encounter notes This section contains the clinical notes associated to the Encounter. Date/Time Encounter Note(s) Provider Source Aug 13, 2023 04:06 PM [facility] NURSING NOTE: LOCAL TITLE: [facility] PATIENT SERVICE REPRESENTATIVE PROGRESS NOTE STANDARD TITLE: [facility] NURSING NOTE DATE OF NOTE: AUG 13, 2023@16:06 ENTRY DATE: AUG 13, 2023@16:06:58 AUTHOR: MARQUES JEFFERY EXP COSIGNER: URGENCY: STATUS: COMPLETED Identified via name and facial recognition- Y f/u HTN. Vet reports bp running high. Community PCP advised to increase Lisinopril to 10mg daily. Unfortunately, pill site planner was not set up with increased dose. Recently had echo, Cards appt tomorrow to discuss resutls Active problems - Computerized Problem List is the source for the followin. Hypertension 2. History of surgery 06/27/22 ACDF 3. 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 Peripheral neuropathy due to type 2 diabetes mellitus 5. Diabetic retinopathy associated with type 2 diabetes mellitus 6. Coronary artery disease 3 vessel CABG @ [facility], 03/2016. 7. Personal History of Colonic Polyps One TA, two HP polyps diverticulosis on 09/06/2010 colonoscopy 8. Osteoarthritis 9. Elevated PSA (SNOMED CT 883245175) 10. Anemia Outside PCP ordered iron studies and FIT test 11/2022 11. B12 deficiency monitoring status (SNOMED CT 348845949) 12. Other and unspecified alcohol dependence, unspecified drinking behavior (ICD 13. Chronic pain (SNOMED CT 02349968) 14. Hyperlipidemia (SNOMED CT 80625225) 15. Hypertensive heart AND chronic kidney disease with congestive heart failure 16. Diabetes mellitus (SNOMED CT 71279567) Allergies: LISINOPRIL The following VA and Non-VA meds were reconciled with patient: Active and Recently Outpatient Medications (excluding Supplies): Active Outpatient Medications Status 1) AMMONIUM [...] AT ACTIVE BEDTIME FOR NERVE PAIN 10) INSULIN,ASPART,HUMAN 100 UNIT/ML INJ INJECT 5 [...] MOUTH ONCE DAILY ACTIVE 18 Total Medications Review of Systems: CONSTITUTIONAL: No recent weight change, no fever, no loss of appetite HEENT: hearing impaired ( )Tinnitus No vision change, no blurring of vision no difficulty swallowing CARDIOVASCULAR: No cough, SOB, no chest pain, no palpitations, LEVIN GASTROINTESTINAL: No abdominal pain, no nausea, no vomiting, bowels ok GENITOURINARY: No weak urine stream, no voiding dysfunction DERMATOLOGICAL: No new or changing skin lesions, no rash MUSCULOSKELETAL: No joint pain, no joint swelling, no muscle pain, no muscle weakness ENDOCRINE: no fatigue PSYCHIATRIC: No anxiety, no trouble sleeping, no depression NEUROLOGIC: No headache, no numbness, no tingling, no weakness, no memory loss, no dizziness Recent Falls Y( ) N(x ) Recent Infections Y( ) N(x ) Recent Hospitalizations Y ( ) N(x ) Oxygen Safety addressed: n/a VITAL SIGNS: BP 148/80 P 72 RR 18 Temp 98 pain- denies PE: GENERAL: Pt is appropriately dressed/groomed, good eye contact. NAD HEENT: normalcephalic, thyroid nonpalpable. conj clear, Oropharynx clear, tongue moistneck supple, no JVD, no carotid bruits SKIN: warm & dry, no rash CV: RRR, nl s1,s2, + NOAH LUNGS: Clear to auscultation bilaterally, no use of accessory muscles ABD: obese, NBS, soft, NT, ND, no masses or organomegaly appreciated EXTREMITIES: RIBEIRO, warm, no edema, +PP NEURO/PSYCH: A+Ox4, good historian, mood/affect appropriate, thought/speech patterns appropriately conversant without delusional content, CNII-XII grossly intact, /3 word recall Get up and go normal ( )with ( )without assistive device. (x )cane ( ) walker Future Clinic Visits 08/28/2023 11:00 NHM/ENDOCRINE 12/23/2023 11:00 CWM/NO/PODIATRY A 02/05/2024 11:00 CWM/NO/OPTOMETRY/MERHAR A/P HTN- > Per instructions from community PCP was to increase lisinopril to 10 mg daily. Does not think instructions were relayed to his [id number] who sets up medications. This comic book writer increased to 10 mg for remaining days in pill site planner. ALVIN CM to f/u with family member. Time spent including chart review, face to face visit, shared decision making and documentation on the day of service;45 minutes - 30 minutes F/U 6-12 months, sooner PRN. has complex care needs and will benefit from ongoing interdisciplinary [facility] management. Treatment plan included shared decision making and is confirmed with the /caregiver. All questions answered, education provided regarding medication, including details regarding any changes. All questions answered. Medication Reconciliation: Outpatient: Has the patient been taking medications as documented in the EMLR? No: Discrepencies were identified. See below. Essential Medication List for Review used to complete this medication reconciliation. INCLUDED IN THIS LIST: Alphabetical list of active outpatient prescriptions dispensed from this [facility] (local) and dispensed from another [place] or [facility] facility (remote) as well as inpatient orders (local, pending and active), local clinic medications, locally documented non-VA medications, and local prescriptions that have or been discontinued in the past 90 days. - Discrepancies were identified, addressed, and discussed with the patient/caregiver at this encounter. Discrepancies: taking 5mg lisinopril instead of 10mg - All changes in medications, including all non-VA/Herbal/OTC medications were entered into CPRS. - If there were any medications the patient should no longer take, they were discontinued. - The patient/caregiver was instructed to update this list, discard old lists, and take this list to the next appointment, whether with a VA or non-VA provider. /genoveva/ MRAQUES JEFFERY [facility] NURSE PRACTITIONER Signed: 08/19/2023 11:07 MARQUES JEFFERY IN [facility]
--- OUTSIDE RECORDS SUMMARY | 2024-07-04 16:07 | XMS_ITS ---
Author Name [facility] [place] Organization [facility] Address [address] [place] [address] Care Team Providers Care Data Processing Manager Name Role Phone ROBERT DAVIS Primary Care [...] O MEDEX BRONZ E Jun 06, 2001 [id number] OMAS PATIENT ANTHEM BCBS OF [place] (BLUECARD) MEDICARE SUPPLEMEN BHARGAVI PSUED O MEDEX BRONZ E Jun 06, 2001 [id number] OM[place] PATIENT [place] MEDIC[place] SUPPLEMEN BHARGAVI MEDEX BRONZ E Jun 06, 2001 [id number] [phone] OMAS PATIENT [place] MEDIC[place] SUPPLEMEN BHARGAVI PSUED O MEDEX BRONZ E Jun 06, 2001 [id number] [phone] HUDRACHEL BOYER OM[place] PATIENT [place] OF [place] MEDICARE SUPPLEMEN BHARGAVI PSUED O MEDEX BRONZ E Jun 06, 2001 [id number] HUDMERLIN,RACHEL OMAS PATIENT MEDICARE (WNR) MEDICARE (M) PART A May 07, 2001 PART A [id number] ([id number] HUDOCK,RACHEL OMAS PATIENT MEDICARE (WNR) MEDICARE (M) PART B May 07, 2001 PART B [id number] ([id number] HUDOCK,RACHEL OMAS PATIENT MEDICARE (WNR) MEDICARE (M) PART A May 07, 2001 PART A [id number] ([id number] HUDOCK,RACHEL OMAS PATIENT MEDICARE (WNR) MEDICARE (M) PART B May 07, 2001 PART B [id number] ([id number] HUDRACHEL BOYER OMAS PATIENT MEDICARE (WNR) MEDICARE (M) PART A May 07, 2001 PART A [id number] HUDRACHEL BOYER OMAS PATIENT MEDICARE (WNR) MEDICARE (M) PART B May 07, 2001 PART B [id number] HUDMERLIN,RACHEL OMAS PATIENT MEDICARE (WNR) MEDICARE (M) PART A May 07, 2001 PART A [id number] ([id number] HUDMERLIN,RACHEL OMAS PATIENT MEDICARE (WNR) MEDICARE (M) PART B May 07, 2001 PART B [id number] ([id number] HUDRACHEL BOYER OMGUANACO PATIENT Selected Encounter This section includes the information on record at [place] for the Encounter. 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 The data comes from all [place] treatment facilities. Appointment Date/Time Appointment Type Appointme nt Facility Name Aug 14, 2023 06:00 AM [place]INE [place] [facility] [place] [facility] Aug 28, 2023 11:00 AM [place] [facility] [place] [facility] November 21, 2023 08:00 AM [place] [facility] [place] [facility] December 04, 2023 11:00 AM [place] [facility] [place] [facility] Dec 23, 2023 11:00 AM [place] [facility] [place] [facility] Jan 21, 2024 08:00 AM [facility] [place] [facility] Lab Results: +/- 30 days of the encounter This section includes the Chemistry and Hematology Lab Results on record with [place] for the patient. Radiology Reports and Pathology Reports are provided separately, in subsequent sections. Lab Results This section contains the Chemistry/Hematology Results that were resulted 30 days before or 30 daysafter the date of the Encounter. Date/Time Source Result Type Result - Unit Interpretation Reference Range Comment Aug 15, 2023 11:00 AM [facility] MICROALBUMIN CREATININE RATIO PANEL Specimen Type: URINE No comment entered. Ordering Provider: FABI MCKEON Report Released Date/Time: May 12, 2023 12:16 PM Reporting Lab: [address] [address] Performing Lab: [facility] [address] [facility] [address] MICROALBUMIN/C REATININE RATIO 112.4 mg/g H 0-29.9 MICROALBUMIN,Q UANTITATIVE 1.5 mg/dL RR UNAVAIL CREATININE URINE 13.35 mg/dL Aug 01, 2023 11:00 AM [facility] HEMOGLOBIN A1C PANEL Specimen Type: BLOOD Comment: [...] May 12, 2023 12:16 PM Reporting Lab: [facility] [address] [facility] [address] Performing Lab: [address] [address] HEMOGLOBIN A1C 7.3 H 4.0-5.6 Aug 01, 2023 11:00 AM [facility] LIPID PANEL FASTING Specimen Type: SERUM No comment entered. Ordering Provider: FABI MCKEON Report Released Date/Time: May 12, 2023 12:16 PM Reporting Lab: [facility] [address] [facility] [address] Performing Lab: [address] [address] CHOLESTEROL 157 mg/dL TRIGLYCERIDE 63 mg/dL 0-150 LDL calculated 65 mg/dL 0-129 CHOL/HDL 2.0 HDL CHOLESTEROL 79 mg/dL H 40-60 Aug 01, 2023 11:00 AM [facility] BASIC METABOLIC PANEL (non-fasting) Specimen Type: SERUM No comment entered. Ordering Provider: FABI MCKEON Report Released Date/Time: May 12, 2023 12:16 PM Reporting Lab: [address] [address] Performing Lab: [address] [address] UREA NITROGEN 40 mg/dL H 7-25 GLUCOSE [...] and tobacco- related health factors from the [place] facility where the Encounter took place. Current Smoking Status This section includes the most current smoking, or tobacco-related health factor, from the [place] facility where the Encounter took place. Date/Time Current Smoking Status Comment [facility] it May 07, 2022 09:00 AM VA-TOBACCO FORMER USER [place] [facility] [place] [facility] Tobacco Use History This section includes a history of the smoking, or tobacco-related health factors, that were collected on or before the date of the Encounter. The data comes from the [place] facility where the Encounter took place. Date/Time Smoking Status/Tobac co Use Comment Facility May 07, 2022 09:00 AM VA-TOBACCO QUIT 15 YRS OR MORE [place] [facility] [place] [facility] May 21, 2021 08:00 AM VA-TOBACCO FORMER USER [place] [facility] [place] [facility] May 21, 2021 08:00 AM VA-TOBACCO QUIT 15 YRS OR MORE [place] [facility] [place] [facility] Apr 24, 2020 11:00 AM VA-TOBACCO FORMER USER [place] [facility] [place] [facility] Apr 24, 2020 11:00 AM VA-TOBACCO QUIT 15 YRS OR MORE [place] [facility] [place] [facility] Jan 15, 2018 10:57 AM QUIT TOBACCO USE > 7 YEARS AGO [facility] [place] [facility] Dec 10, 2016 08:53 AM QUIT TOBACCO USE > 7 YEARS AGO [place] [facility] [place] [facility] Jul 19, 2015 10:22 AM QUIT TOBACCO USE > 7 YEARS AGO Quit about 40 years ago. [place] [facility] [place] [facility] November 14, 2004 10:00 AM HISTORY OF SMOKING [place] [facility] [place] [facility] November 14, 2004 10:00 AM LIFETIME NON-SMOKER [place] [facility] [place] [facility] Oct 25, 2003 10:34 AM HISTORY OF SMOKING [place] [facility] [place] [facility] Oct 07, 2002 09:41 AM HISTORY OF SMOKING [place] [facility] [place] [facility] Nov 03, 2001 10:31 AM QUIT TOBACCO USE > 7 YEARS AGO [place] [facility] [place] [facility] Jul 31, 2001 02:15 PM NON-TOBACCO USER Quit 20 yrs ago [facility] [place] [facility] Advance Directives: All historical and current Section Date Range: From patient's date of to the date document was created. This section includes ALL of a patient's completed or amended [place] Advance and Rescinded Directives. The entries below indicate that a directive exists for the patient, but an actual copy is not included with this document. The data comes from all [place] facilities. Date Advance Directives Provider Source Jul 03, 2023 ADVANCE DIRECTIVE RICHARD BAZZI [facility] Encounter Notes: All associated encounter notes This section contains the clinical notes associated to the Encounter. Date/Time Encounter Note(s) Provider Source Aug 12, 2023 02:07 PM ADMINISTRATIVE NOT E: LOCAL TITLE: FAX/MAIL RECEIVED STANDARD TITLE: ADMINISTRATIVE NOTE DATE OF NOTE: AUG 12, 2023@14:07 ENTRY DATE: AUG 12, 2023@14:07:29 AUTHOR: KELSEA JO COSIGNER: URGENCY: STATUS: COMPLETED Document Received On: Aug Document Type: Office Visit Note Date of Service: Jul Facility and or Provider: [facility] Contact Information: PCP of Record: MARQUES JEFFERY Next visit with PCP: 08/28/2023 11:00 NHM/ENDOCRINE 12/23/2023 11:00 CWM/NO/PODIATRY A 02/05/2024 11:00 CWM/NO/OPTOMETRY/MERHAR Primary Care May keep copies of this document for up to 14 days and send the original for scanning. /genoveva/ KELSEA JO BALLPOINT PENS ASSEMBLER [facility] Signed: 08/12/2023 14:09 Receipt Acknowledged By: 08/13/2023 16:01 /genoveva/ MARQUES AMADO NURSE PRACTITIONER 08/12/2023 14:28 /genoveva/ Millie MEEHAN [facility] greaser helper KELSEA JO [facility]
--- OUTSIDE RECORDS SUMMARY | 2024-07-04 16:07 | XMS_ITS | Encounter Summary ---
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 Name Role Phone ROBERT DAVIS Primary Care Provider Unav ailable RICHARD BAZZI Unavailable Unavailable CASSANDRA FERRELL Unavailable Unavailable KELSEA JO Unavailable Unavailable MONSE DUBON Unavailable Unavailable MILLIE DAVENPORT Unavailable Unavailable DARSHAN OLIVERA Unavailable Unavailable СЕРГЕЙ, JENS Unavailable Unavailable PADMA URIBE Unavailable Unavailable Insurance [...] O MEDEX BRONZ E Jun 06, 2001 [id number] OMAS PATIENT ANTHEM BCBS OF [place] (BLUECARD) MEDICARE SUPPLEMEN BHARGAVI PSUED O MEDEX BRONZ E Jun 06, 2001 [id number] OM[place] PATIENT [place] MED[place] SUPPLEMEN BHARGAVI MEDEX BRONZ E Jun 06, 2001 [id number] OM[place] PATIENT [place]BS [place] MEDICARE SUPPLEMEN BHARGAVI PSUED O MEDEX BRONZ E Jun 06, 2001 [id number] [phone] HUDRACHEL BOYER OMAS PATIENT BCBS OF [facility] MEDICARE SUPPLEMEN BHARGAVI PSUED O MEDEX BRONZ E Jun 06, 2001 [id number] HUDMERLIN,RACHEL OMAS PATIENT MEDICARE (WNR) MEDICARE (M) PART A May 07, 2001 PART A [id number] HUDOCK,RACHEL OMAS PATIENT MEDICARE (WNR) MEDICARE (M) PART B May 07, 2001 PART B [id number] ([id number] HUDOCK,RACHEL OMAS PATIENT MEDICARE (WNR) MEDICARE (M) PART A May 07, 2001 PART A [id number] ([id number] HUDOCK,RACHEL OMAS PATIENT MEDICARE (WNR) MEDICARE (M) PART B May 07, 2001 PART B [id number] ([id number] HUDMERLIN,RACHEL OMAS PATIENT MEDICARE (WNR) MEDICARE (M) PART A May 07, 2001 PART A [id number] HUDRACHEL BOYER OMAS PATIENT MEDICARE (WNR) MEDICARE (M) PART B May 07, 2001 PART B [id number] HUDMERLIN,RACHEL OMAS PATIENT MEDICARE (WNR) MEDICARE (M) PART A May 07, 2001 PART A [id number] ([id number] HUDMERLIN,RACHEL OMAS PATIENT MEDICARE (WNR) MEDICARE (M) PART B May 07, 2001 PART B [id number] ([id number] HUDRACHEL BOYER OMGUANACO PATIENT Selected Encounter This section includes the information on record at [place] for the Encounter. Date/Time Encounter Type Encounter Description Reason Pro vider Source Jul 14, 2023 12:00 AM Outpatient Encounter EVENT (HISTORICAL) IHE Encounter Template Text not used by [...] 20 appointments. The data comes from all [place] treatment facilities. Appointment Date/Time Appointment Type Appointme nt Facility Name Aug 05, 2023 11:00 AM [place] [facility] [place] [facility] Aug 14, 2023 06:00 AM AM[place]ORY [place] [facility] [place] [facility] Aug 28, 2023 11:00 AM AM[place]ORY [place] [facility] [place] [facility] November 21, 2023 08:00 AM AM[place]ULATORY [place]ICINE [place] [facility] [place] [facility] December 04, 2023 11:00 AM AM[place]ULATORY [place] [facility] [facility] Dec 23, 2023 11:00 AM AM[place]ORY [place] [facility] [place] [facility] Lab Results: +/- 30 days of the encounter This section includes the Chemistry and Hematology Lab Results on record with [place] for the patient. Radiology Reports and Pathology Reports are provided separately, in subsequent sections. Lab Results This section contains the Chemistry/Hematology Results that were resulted 30 days before or 30 daysafter the date of the Encounter. Date/Time Source Result Type Result - Unit Interpretation Reference Range Comment Aug 01, 2023 11:00 AM [facility] HEMOGLOBIN A1C PANEL Specimen Type: BLOOD [...] May 12, 2023 12:16 PM [facility] [address] [address] Performing Lab: [address] [address] HEMOGLOBIN A1C 7.3 H 4.0-5.6 Aug 01, 2023 11:00 AM [facility] LIPID PANEL FASTING Specimen Type: SERUM No comment entered. Ordering Provider: FABI MCKEON Report Released Date/Time: May 12, 2023 12:16 PM Reporting Lab: [facility] [address] [facility] [address] Performing Lab: [facility] [address] [facility] [address] CHOLESTEROL 157 mg/dL TRIGLYCERIDE 63 mg/dL 0-150 LDL calculated 65 mg/dL 0-129 CHOL/HDL 2.0 HDL CHOLESTEROL 79 mg/dL H 40-60 Aug 01, 2023 11:00 AM [facility] BASIC METABOLIC PANEL (non-fasting) Specimen Type: SERUM No comment entered. Ordering Provider: FABI MCKEON Report Released Date/Time: May 12, 2023 12:16 PM Reporting Lab: [facility] [address] [facility] [address] Performing Lab: [address] [address] UREA NITROGEN 40 mg/dL H 7-25 GLUCOSE [...] and tobacco- related health factors from the [place] facility where the Encounter took place. Current Smoking Status This section includes the most current smoking, or tobacco-related health factor, from the [place] facility where the Encounter took place. Date/Time Current Smoking Status Comment [facility] May 07, 2022 09:00 AM VA-TOBACCO FORMER USER [facility] Tobacco Use History This section includes a history of the smoking, or tobacco-related health factors, that were collected on or before the date of the Encounter. The data comes from the [place] facility where the Encounter took place. Date/Time Smoking Status/Tobac co Use Comment Facility May 07, 2022 09:00 AM VA-TOBACCO QUIT 15 YRS OR MORE [facility] May 21, 2021 08:00 AM VA-TOBACCO FORMER USER [place] [facility] [place] [facility] May 21, 2021 08:00 AM VA-TOBACCO QUIT 15 YRS OR MORE [place] [facility] [place] [facility] Apr 24, 2020 11:00 AM VA-TOBACCO FORMER USER [place] [facility] [place] [facility] Apr 24, 2020 11:00 AM VA-TOBACCO QUIT 15 YRS OR MORE [place] [facility] [place] [facility] Jan 15, 2018 10:57 AM QUIT TOBACCO USE > 7 YEARS AGO [place] [facility] Dec 10, 2016 08:53 AM QUIT TOBACCO USE > 7 YEARS AGO [place] [facility] [place] [facility] Jul 19, 2015 10:22 AM QUIT TOBACCO USE > 7 YEARS AGO Quit about 40 years ago. [place] [facility] [place] [facility] November 14, 2004 10:00 AM HISTORY OF SMOKING [facility] November 14, 2004 10:00 AM LIFETIME NON-SMOKER [place] [facility] Oct 25, 2003 10:34 AM H[place] OF SMOKING [place] [facility] Oct 07, 2002 09:41 AM H[place]ORY OF SMOKING [place] [facility] Nov 03, 2001 10:31 AM QUIT TOBACCO USE > 7 YEARS AGO [place] [facility] Jul 31, 2001 02:15 PM NON-TOBACCO USER Quit 20 yrs ago [facility] Advance Directives: All historical and current Section Date Range: From patient's date of to the date document was created. This section includes ALL of a patient's completed or amended [place] Advance and Rescinded Directives. The entries below indicate that a directive exists for the patient, but an actual copy is not included with this document. The data comes from all [place] facilities. Date Advance Directives Provider Source Jul 03, 2023 ADVANCE DIRECTIVE RICHARD BAZZI [facility] Encounter Notes: All associated encounter notes This section contains the clinical notes associated to the Encounter. Date/Time Encounter Note(s) Provider Source Jul 14, 2023 12:00 AM NONVA NOTE: LOCAL TITLE: NON-VA OUTPATIENT NOTES STANDARD TITLE: NONVA NOTE DATE OF NOTE: JUL 14, 2023 ENTRY DATE: AUG 22, 2023@11:06:01 AUTHOR: ZACHARY KHANNA EXP COSIGNER: URGENCY: STATUS: COMPLETED VistA Imaging - Scanned Document SCANNED DOCUMENT SIGNATURE NOT REQUIRED Electronically Filed: 08/22/2023 by: ZACHARY PEDRAZA [place] [facility]
--- OUTSIDE RECORDS SUMMARY | 2024-07-04 16:07 | XMS_ITS ---
Author Name [facility] [place] ([place] Organization [facility] Address [address] [place] [address] Care Team Providers Care Cloth Handler Name Role Phone ROBERT DAVIS Primary Care Provider Unav ailable RICHARD BAZZI Unavailable Unavailable CASSANDRA FERRELL Unavailable Unavailable KELSEA JO Unavailable Unavailable MONSE DUBON Unavailable Unavailable MILLIE DAVENPORT Unavailable Unavailable DARSHAN OLIVERA Unavailable Unavailable СЕРГЕЙ, CLOTILDE Unavailable Unavailable RONY, PADMA Unavailable Unavailable Insurance [...] O MEDEX BRONZ E Jun 06, 2001 [id number] OM[place] PATIENT ANTHEM BCBS OF [place] (BLUECARD) MEDICARE SUPPLEMEN BHARGAVI PSUED O MEDEX BRONZ E Jun 06, 2001 [id number] [place] SUPPLE[place] BHARGAVI MEDEX BRONZ E Jun 06, 2001 [id number] [place]ARG[place] PSUED O MEDEX BRONZ E Jun 06, 2001 [id number] HUDRACHEL BOYER [place] PAT[place] SUPPLEMEN [place] PSUED O MEDEX BRONZ E Jun 06, 2001 [id number] HUDMERLIN,RACHEL OMAS PATIENT MEDICARE (WNR) MEDICARE (M) PART A May 07, 2001 PART A [id number] ([id number] HUDOCK,RACHEL OMAS PATIENT MEDICARE (WNR) MEDICARE (M) PART B May 07, 2001 PART B [id number] ([id number] HUDOCK,RACHEL OMAS PATIENT MEDICARE (WNR) MEDICARE (M) PART A May 07, 2001 PART A [id number] ([id number] HUDOCK,RACHEL OMAS PATIENT MEDICARE (WNR) MEDICARE (M) PART B May 07, 2001 PART B [id number] ([id number] HUDRACHEL BOYER OMAS PATIENT MEDICARE (WNR) MEDICARE (M) PART A May 07, 2001 PART A [id number] HUDRACHEL BOYER OMAS PATIENT MEDICARE (WNR) MEDICARE (M) PART B May 07, 2001 PART B [id number] HUDMERLIN,RACHEL OMAS PATIENT MEDICARE (WNR) MEDICARE (M) PART A May 07, 2001 PART A [id number] ([id number] HUDMERLIN,RACHEL OMAS PATIENT MEDICARE (WNR) MEDICARE (M) PART B May 07, 2001 PART B [id number] ([id number] HUDRACHEL BOYER OMGUANACO PATIENT Selected Encounter This section includes the information on record at [place] for the Encounter. Date/Time Encounter Type Encounter Description Reason Pro vider Source Aug 18, 2023 04:35 PM Outpatient Encounter [facility] PHYSIC EXTND(TRANSITIONS MANAGER,ARMOR RECONNAISSANCE VEHICLE CREWMAN,PA) IHE Encounter Template Text not used by [...] - MEDICINE [place] [facility] [place] [facility] November 21, 2023 08:00 AM AMBULATORY - MEDICINE [place] [facility] [place] [facility] December 04, 2023 11:00 AM AMBULATORY - MEDICINE [place] [facility] [place] [facility] Dec 23, 2023 11:00 AM AMBULATORY - MEDICINE [place] [facility] [facility] Jan 21, 2024 08:00 AM [facility] Lab Results: +/- 30 days of the [...] Range Comment Aug 15, 2023 11:00 AM [facility] MICROALBUMIN CREATININE RATIO PANEL Specimen Type: URINE No comment entered. Ordering Provider: FABI MCKEON Report Released Date/Time: May 12, 2023 12:16 PM Reporting Lab: [facility] [address] [address] Performing Lab: [address] [address] MICROALBUMIN/C REATININE RATIO 112.4 mg/g H 0-29.9 MICROALBUMIN,Q UANTITATIVE 1.5 mg/dL RR UNAVAIL CREATININE URINE 13.35 mg/dL Aug 01, 2023 11:00 AM [facility] HEMOGLOBIN A1C PANEL Specimen Type: BLOOD [...] May 12, 2023 12:16 PM Reporting Lab: [facility] [address] [facility] [address] Performing Lab: [facility] [address] [address] HEMOGLOBIN A1C 7.3 H 4.0-5.6 Aug 01, 2023 11:00 AM [facility] LIPID PANEL FASTING Specimen Type: SERUM No comment entered. Ordering Provider: FABI MCKEON Report Released Date/Time: May 12, 2023 12:16 PM Reporting Lab: [facility] [address] [address] Performing Lab: [facility] [address] [address] CHOLESTEROL 157 mg/dL TRIGLYCERIDE 63 mg/dL 0-150 LDL calculated 65 mg/dL 0-129 CHOL/HDL 2.0 HDL CHOLESTEROL 79 mg/dL H 40-60 Aug 01, 2023 11:00 AM [facility] BASIC METABOLIC PANEL (non-fasting) Specimen Type: SERUM No comment entered. Ordering Provider: FABI MCKEON Report Released Date/Time: May 12, 2023 12:16 PM Reporting Lab: [facility] [address] [facility] [address] Performing Lab: [address] [address] UREA NITROGEN 40 mg/dL H 7-25 GLUCOSE [...] took place. Date/Time Current Smoking Status Comment [facility] it May 07, 2022 09:00 AM VA-TOBACCO FORMER USER [facility] [place] [facility] Tobacco Use History This section includes a history of the smoking, or tobacco-related health factors, that were collected on or before the date of the Encounter. The data comes from the [place] facility where the Encounter took place. Date/Time Smoking Status/Tobac co Use Comment Facility May 07, 2022 09:00 AM VA-TOBACCO QUIT 15 YRS OR MORE [place] [facility] [place] [facility] May 21, 2021 08:00 AM VA-TOBACCO FORMER USER [place] [facility] [place] [facility] May 21, 2021 08:00 AM VA-TOBACCO QUIT 15 YRS OR MORE [place] [facility] [place] [facility] Apr 24, 2020 11:00 AM [facility] [place] [facility] Apr 24, 2020 11:00 AM VA-TOBACCO QUIT 15 YRS OR MORE [place] [facility] [place] [facility] Jan 15, 2018 10:57 AM QUIT TOBACCO USE > 7 YEARS AGO [place] [facility] [place] [facility] Dec 10, 2016 08:53 AM QUIT TOBACCO USE > 7 YEARS AGO [place] [facility] [place] [facility] Jul 19, 2015 10:22 AM QUIT TOBACCO USE > 7 YEARS AGO Quit about 40 years ago. [place] [facility] [place] [facility] November 14, 2004 10:00 AM HISTORY OF SMOKING [place] [facility] [place] [facility] November 14, 2004 10:00 AM LIFETIME NON-SMOKER [place] [facility] [place] [facility] Oct 25, 2003 10:34 AM HISTORY OF SMOKING [place] [facility] [place] [facility] Oct 07, 2002 09:41 AM HISTORY OF SMOKING [place] [facility] [place] [facility] Nov 03, 2001 10:31 AM QUIT TOBACCO USE > 7 YEARS AGO [place] [facility] [place] [facility] Jul 31, 2001 02:15 PM NON-TOBACCO USER Quit 20 [facility]rs [facility] Advance Directives: All historical and current [...] Jul 03, 2023 ADVANCE DIRECTIVE RICHARD BAZZI [place] [facility] [place] [facility] Encounter Notes: All associated encounter notes This section contains the clinical notes associated to the Encounter. Date/Time Encounter Note(s) Provider Source Aug 18, 2023 04:35 PM [facility] NOTE: LOCAL TITLE: [facility] INTERDISCIPLINARY NOTE STANDARD TITLE: [facility] NOTE DATE OF NOTE: AUG 18, 2023@16:35 ENTRY DATE: AUG 18, 2023@16:35:40 AUTHOR: MILLIE DAVENPORT EXP COSIGNER: URGENCY: STATUS: COMPLETED [facility] INTERDISCIPLINARY NOTE Has ADDENDA INTERDISCIPLINARY NOTE Allergies: LISINOPRIL Risk Assessment Level 1 Low risk DNR: No Advanced Directive Completed: Yes Family/Community Support:darci Loya [phone] ,dtr n law manages meds Care Tenders PRODUCT ASSURANCE ENGINEER 6hrs weekly Mental Status: A & O X 3 PLAN OF CARE 90 day Dates covered by plan of care AUG 18 2023 TO NOVEMBER 2023 Primary Care Provider: Marques Granger NP PROBLEM LIST: Active problems - Computerized Problem List is the source for the followin. 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 Peripheral neuropathy due to type 2 diabetes mellitus 3. Diabetic retinopathy associated with type 2 diabetes mellitus 4. Coronary artery disease 3 vessel CABG @ [facility], 03/2016. 5. Personal History of Colonic Polyps One TA, two HP polyps diverticulosis on 09/06/2010 colonoscopy 6. Osteoarthritis 7. Elevated Prostate Specific Antigen (PSA) 8. Anemia * 9. Vitamin B 12 Deficiency 10. Other and unspecified alcohol dependence, unspecified drinking behavior (ICD 11. Back Pain 12. Hyperlipidemia (SNOMED CT 84155014) 13. Hypertension (SNOMED CT 98908014) 14. Diabetes mellitus (SNOMED CT 37881900) Active Outpatient Medications Status 1) AMMONIUM LACTATE [...] MOUTH ONCE DAILY ACTIVE 19 Total Medications Gender Specific Health Assessment: hx of Elevate PSA Fall Risk: [facility] 10 Fall Risk Assessment Tool Required Core Elements Assess one point for each core element yes. Information may be gathered from medical record, assessment and if applicable, the patient caregiver. Beyond protocols listed below, scoring should be based on your clinical judgment. 1-Age 65+ 1-Diagnosis (3 or more co-existing) Includes only documented medical diagnosis 1-Prior history of falls within 3 months An unintentional change in position resulting in coming to rest on the ground or at a lower level. 0-Incontinence Inability to make it to the bathroom or commode in a timely manner. Includes frequency, urgency, and/or nocturia 1-Visual impairment Includes but not limited to, macular degeneration, diabetic retinopathy, visual field loss, age related changes, decline in visual acuity, accommodation, glare tolerance, depth perception, and night vision or not wearing prescribed glasses or having the correct prescription 1-Impaired functional mobility May include patients who need help with IADLs or ADLs or have gait or transfer problems, arthritis, pain, fear of falling, foot problems, impaired sensation, impaired coordination or improper use of assistive devices. 0-Environmental hazards May include but not limited to, poor illumination, equipment tubing, inappropriate footwear, pets, hard to reach items, floor surfaces that are uneven or cluttered, or outdoor entry and exits. 1-Poly Pharmacy (4 or more prescriptions - any type) All PRESCRIPTIONS including prescriptions for OTC meds. Drugs highly associated with fall risk include but not limited to, sedatives, anti-depressants, tranquilizers, narcotics, antihypertensive, cardiac meds, corticosteroids, anti- anxiety drugs, anticholinergic drugs, and hypoglycemic drugs. 1-Pain affecting level of function Pain often affects an individual's desire or ability to move or pain can be a factor in depression or compliance with safety recommendations. 0-Cognitive Impairment Could include patients with dementia, Alzheimer's or stroke patients or patients who are confused, use poor judgment, have decreased comprehension, impulsivity, memory deficits. Consider patients ability to adhere to the plan of care. Total: 7- A score of 4 or more is considered at risk for falling. Created by: [facility] Functional Limitations Use of assistive devices Cane in the home, Walker outside of home Nutritional Requirements: Diet:Diabetic, low sodium Aspiration problems soft diet RN VISIT FREQUENCY RN 2-4 VISITS Q 4-8 WEEKS PRN [facility] RN visits for changes in Health Status Assess: vital signs to include pain assessment, pain control response to medications, bowel and bladder function, s/s of deterioration and management of complications related to disease process, cardiopulmonary status, effects of comfort measures, psychosocial status, and neurological status PROBLEM ADDRESED Potential for falls related to ble weakness secondary to disease process GOAL will not sustain a fall [place] will demonstrate selective preventative measures to prevent falls in the home Interventions: 1.Assess circumstances associated with increasing the level of fall risk 2. Assess for falls each visit 3.Assess mental status each visit and for changes 4. Assess 's balance and gait each visit 5. Assess for use of mobility and assistive devices 6. Assess for disease related or age related symptoms (hypotension,urinary incont etc) 7.Review 's medications that may pose or increase fall risks 8. Assess environment. Educate regarding removing scattered rugs, clutter 9. Order guardian alert system 10. Refer to OT/PT for home safety eval, gait training. 11. Place bed in low positions at all times , utilize bed rails prn, bed alarms if appro, non skid floor mat. Encourage to wear non skid soles or nonskid socks. PROBLEM ADDRESSED: Risk for unstable blood glucose level related to unstable blood glucose readings Goals : A1C will be less than 8 [place] will have a BG reading of less than 180mcq/dl Interventions: 1.Assess 's knowledge of Disease 2. Assess for ss of hyper/hyperglycemia educate accordingly with appropriate interventions 3. Assess glucose levels fasting and before meals and bedtime (140-180) 4. Monitor A1C per PCP order (6.5-7%) 5. Assess weight monthly Encourage exercise regularly 6. Assess and educate on appropriate foot care PROBLEM ADDRESSED: Risk for decreased cardiac output related to Hypertension and hyperlipidemia. (Monitor progress toward achievement of Clinical Outcome Goals: BP, Labs) GOALS: Veterans blood pressure will remain below 140/90. Cholesterol to be under 200 in 3 months. will participate in activities that reduce blood pressure/cardiac workload as tolerated. Cg verbalizes understanding of the pathophysiology/underlying causes of HTN and HLD, dietary requirements that promote control of cardiovascular disease, use of medications to treat cardiovascular disease and the importance of daily activity/exercise. INTERVENTIONS: Assess, monitor and record blood pressure. Assess heart sounds,rate and rhythm. Assess lung sounds. Observe skin color, moisture, temperature &capillary refill. Assess for dizziness, lightheadedness, headache or vision changes. Evaluate [place] reports of evidence of extreme fatigue and activity intolerance. Educate on signs and symptoms of hypertension and when to report to [facility] provider(s) or seek emergency medical care. Monitor response to medications to control blood pressure. Provide education about anti- hypertensive medication. Educate on life-style modifications that can reduce hypertension/hyperlipidemia. Heart Healthy Diet (low sodium, low fat/cholesterol, high fiber), Assess and teach in home self BP checks. Teach CGs to notify [facility] and or 911 as needed. Skilled Interventions: set up medications as ordered venipuncture per TRANSITIONS MANAGER order oxygen saturation :as needed SOB PRN weight :monthly prn weight loss, edema foot care/nail care prn cognition assessment; safety concerns preparation/administration insulin, including education teach administration of injection preventative care primary care palliative care Education: pain/symptom control medication adminsitration/side effects bowel program appropriate skin care dyspnea management (meds, energy conservation, controlled breathing, etc) emergency management infection control nutritional needs fluid intake s/s disease progression and complications diabetes management safety measures hypertension management Individualized Outcomes: pain and symptoms of physical discomfort will remain at acceptable level patient/family will demonstrate ability to perform procedures from plan of care to remain safe in the home patient will receive adequate care from caregiver to meet needs patient will maintain intact skin integrity or appropriate wound treatment patient/caregiver will verbalize outcomes to education patient/caregiver will verbalize/demonstrate management of incontinence patient will take medications as per MD orders patient will recognize changes that require reporting to [facility] staff patient will do accuchecks and follow diabetic diet patient will demonstrate correct use of adaptive equipment patient will be safe in home with environment adjusted to accomodate decrease in cognition and/or increase in disease progression Involvement of additional [facility] team members: N.P. assess and attach specific plan SW assess and attach specific plan RD assess and attach specific plan O.T. assess and attach specific plan request pharmacy review of medications Discharge Plan when able to remain in community safely with assistance of services and or family Per [facility] Discharge Policy is an 88 year old male who lives alone in a single family home. He has 2 son's who live by and are very involved and supportive. 's dnl manages medications and prefills med box's weekly for . Family prepares meals for as well. [place] has a hx of IDDM is followed by Dr Mckeon, CKD and is followed by Dr Jaimes. BG poorly controlled. [place] does not always follow dietary reccomendations and eats mostly prepared frozen meals. Education provided but because lives alone this form of food is easier for him to prepare. A1C increased to 7.3 from 7.0. Insulin doses increased (aspart /8 and glargine 14 units daily). [place] with a hx of chronic back pain gudelia with amb. The pain resolves with rest. [place] will take an occasional Tylenol 500mg 2 tabs without any effect. 's gait is slightly unsteady at times. He uses a walker when he leaves the home. Around the house he will use the cane. No report of falls. with a hx of CAD is followed by Dr Sewell straight knife cutter machine.Recent Echo performed with follow up appt. Request records. 's bp has been running higher than usual Dr Yeager comm PCP increased Lisinopril doseage to 10mg po daily with effect. Bp improved. Dtr n law prefills meds. WHAT MATTERS What Matters was addressed at this visit. Comment: to stay at home as long as I can MEDICATION Medications were addressed at this visit. Comment: Med rec performed by PCP. Meds reviewed each visit . DNL manages meds MENTATION Depression was addressed at this visit. Comment: Lonely. Denies any S.I. family supportive. Followed by PARK WORKER MENTATION Dementia was addressed at this visit. Comment: AOX3 forgetful at times. MENTATION Delirium was addressed at this visit. Comment: No sx noted MOBILITY -------- Mobility was addressed at this visit. Comment: Gait sl steady. Use of cane and walker. Free from falls. is followed by Dr Chacon =Podiatry Dr Schumacher =Opthomologist Dr Yeager =community provider Dr Sewell=Can Tender receives 12 hrs of TOOL CHASER hrs through Care tenders to assist with adls and Iadls. London's goal is to live at home as long as possible. Continue to provide comprehensive medical care in the home. Assess for ss of depression, coping, home safety. has ongoing complex medical needs and benefits from [facility] interdisciplinary management. [place] and cg are included in decision making. All questions answered, education regarding medication, and disease mgt reinforced with who verbalizes understanding. [place] will be free from falls, infection, and hospitalizations over the next 90 days. /es/ Millie DUENASN [facility] accountant machine processing Signed: 08/18/2023 16:51 Receipt Acknowledged By: 08/19/2023 16:05 /es/ JHONNY NIEVES RN, BSN [facility] MARKETING DIRECTOR 08/19/2023 13:47 /es/ MELODIE MCGEE, RN [facility] accountant machine processing 08/20/2023 11:12 /es/ Malgorzata Suggs, MSN, TRANSITIONS MANAGER [facility] 08/19/2023 16:43 /es/ MARQEUS GRANGER [facility] NURSE PRACTITIONER 08/19/2023 13:50 /es/ PADMA URIBE [facility] Clinical Pharmacist Practitioner 08/19/2023 12:12 /es/ ROBERT DAVIS RN,MSN,WEIGHER AND CHARGER-C [facility] NURSE PRACTITIONER 08/26/2023 11:17 /es/ OVIDIO LOWE, RD, LDN REGISTERED DIETITIAN 08/19/2023 12:16 /es/ Amalia Florez RN [facility] accountant machine processing 08/20/2023 08:52 /es/ R[facility]ARD [facility]ZZI, [facility] Mems Device Scientist 08/20/2023 08:33 /es/ Clotilde Arthur [facility] Occupational Therapist 08/25/2023 20:04 /es/ CASSANDRA FERRELL STAFF DIETITIAN 08/21/2023 07:37 /es/ Jacki Rascon METER SUPERVISOR [facility] MARKETING DIRECTOR 08/19/2023 ADDENDUM STATUS: COMPLETED Will continue to review medication regimen quarterly. /es/ PADMA URIBE [facility] Clinical Pharmacist Practitioner Signed: 08/19/2023 13:52 08/19/2023 ADDENDUM STATUS: COMPLETED Will continue to follow every 6-12 months for routine medical care and as needed for changes in condition. /es/ MARQUES GRANGER [facility] NURSE PRACTITIONER Signed: 08/19/2023 16:44 08/20/2023 ADDENDUM STATUS: COMPLETED is currently followed by OT to address functional abilities and ongoing assessment of equipment and home safety needs. Once current rehab needs are addressed, [facility] Rehab will follow up with at least annually and as need arises for change in function. /es/ Clotilde Arthur [facility] Occupational Therapist Signed: 08/20/2023 08:36 08/20/2023 ADDENDUM STATUS: COMPLETED Mems Device Scientist assisted with completion of HCP this past quarter and will be available for psychosocial support as needed, moving forward. Annual assessment to be conducted November 2023 unless otherwise indicated. /es/ MARY GARCIA [facility] Mems Device Scientist Signed: 08/20/2023 08:56 08/26/2023 ADDENDUM STATUS: COMPLETED [place] discussed at IDT meeting. Patient was last seen in person by [facility] dietitian on 11/18/22. Plan: 1. Follow-up visit: annually or sooner as needed if change in condition 2. Monitor progress toward achievement of Nutrition Intervention Goals 3. Assess comprehension and motivation based on dietary changes made 4. Monitor progress toward achievement of Clinical Outcome Goals: Weight, Labs, Skin integrity, Oral Intake 5. Follow for clinical issues at IDT meetings and with quarterly chart review. /es/ OVIDIO LOWE RD, LDN REGISTERED DIETITIAN Signed: 08/26/2023 11:18 MILLIE DAVENPORT [place] [facility]
--- OUTSIDE RECORDS SUMMARY | 2024-07-04 16:08 | XMS_ITS | Encounter Summary ---
Author Name [facility] ([place] Organization [facility] ([place]) Address [address] [place] [id number] Care Team Providers Care Filter Plant Operator Name Role Phone ROBERT DAVIS Primary Care Provider UnaRICHARD Jenkins Unavailable Unavailable CASSANDRA FERRELL Unavailable Unavailable KELSEA [...] O MEDEX BRONZ E Jun 06, 2001 [id number] OMAS PATIENT ANTHEM BCBS OF CT (BLUECARD) MEDICARE SUPPLEMEN BHARGAVI PSUED O MEDEX BRONZ E Jun 06, 2001 [id number] OM[place] PATIENT [place]BS [place] MEDICARE SUPPLEMEN BHARGAVI MEDEX BRONZ E Jun 06, 2001 [id number] [phone] OM[place] PATIENT [place] MED[place] SUPPLEMEN BHARGAVI PSUED O MEDEX BRONZ E Jun 06, 2001 [id number] [phone] [place] PAT[place] MED[place] SUPPLEMEN BHARGAVI PSUED O MEDEX BRONSalbador E Jun 06, 2001 [id number] [phone] HUDOCK,RACHEL OMAS PATIENT MEDICARE (WNR) MEDICARE (M) PART A May 07, 2001 PART A [id number] HUDOCK,RACHEL OMAS PATIENT MEDICARE (WNR) MEDICARE (M) PART B May 07, 2001 PART B [id number] HUDOCK,RACHEL OMAS PATIENT MEDICARE (WNR) MEDICARE (M) PART A May 07, 2001 PART A [id number] HUDOCK,RACHEL OMAS PATIENT MEDICARE (WNR) MEDICARE (M) PART B May 07, 2001 PART B [id number] ([id number] HUDMERLIN,RACHEL OMAS PATIENT MEDICARE (WNR) MEDICARE (M) PART A May 07, 2001 PART A [id number] HUDMERLIN,RACHEL OMAS PATIENT MEDICARE (WNR) MEDICARE (M) PART B May 07, 2001 PART B [id number] HUDOCK,RACHEL OMAS PATIENT MEDICARE (WNR) MEDICARE (M) PART A May 07, 2001 PART A [id number] ([id number] HUDOCK,RACHEL OMAS PATIENT MEDICARE (WNR) MEDICARE (M) PART B May 07, 2001 PART B [id number] ([id number] HUDMERLIN,RACHEL OMAS PATIENT Selected Encounter This section includes the information on record at [place] for the Encounter. Date/Time Encounter Type Encounter Description Reason Pro vider Source IHE Encounter Template Text not used by [place] Advance Directives: All historical and current Section Date Range: From patient's date of to the date document was created. This section includes ALL of a patient's completed or amended [place] Advance and Rescinded Directives. The entries below indicate that a directive exists for the patient, but an actual copy is not included with this document. The data comes from all [place] facilities. Date Advance Directives Provider Source Jul 03, 2023 ADVANCE DIRECTIVE RICHARD BAZZI [facility]
--- OUTSIDE RECORDS SUMMARY | 2024-07-04 16:08 | XMS_ITS | Encounter Summary ---
Author Name [facility] [place] [facility] [place] Address [address] [place] [address] Care Team Providers Care Glue Drier Operator Name Role Phone ROBERT DAVIS Primary [...] O MEDEX BRONZ E Jun 06, 2001 [id number] [phone] OMAS PATIENT ANTHEM BCBS OF CT (BLUECARD) MEDICARE SUPPLEMEN BHARGAVI PSUED O MEDEX BRONZ E Jun 06, 2001 [id number] [place] PAT[place] MEDIC[place] SUPPLEMEN BHARGAVI MEDEX BRONZ E Jun 06, 2001 [id number] [phone] [place] PAT[place] SUPPLEMEN BHARGAVI PSUED O MEDEX BRONZ E Jun 06, 2001 [id number] HUDRACHEL BOYER OM[place] PATIENT [place] MED[place] SUPPLEMEN BHARGAVI PSUED O MEDEX BRONSalbador E Jun 06, 2001 [id number] [phone] HUDMERLIN,RACHEL OMAS PATIENT MEDICARE (WNR) MEDICARE (M) PART A May 07, 2001 PART A [id number] HUDOCK,RACHEL OMAS PATIENT MEDICARE (WNR) MEDICARE (M) PART B May 07, 2001 PART B [id number] ([id number] HUDOCK,RACHEL OMAS PATIENT MEDICARE (WNR) MEDICARE (M) PART A May 07, 2001 PART A [id number] ([id number] HUDMERLIN,RACHEL OMAS PATIENT MEDICARE (WNR) MEDICARE (M) PART B May 07, 2001 PART B [id number] HUDMERLIN,RACHEL OMAS PATIENT MEDICARE (WNR) MEDICARE (M) PART A May 07, 2001 PART A [id number] HUDRACHEL BOYER OMAS PATIENT MEDICARE (WNR) MEDICARE (M) PART B May 07, 2001 PART B [id number] HUDMERLIN,RACHEL OMAS PATIENT MEDICARE (WNR) MEDICARE (M) PART A May 07, 2001 PART A [id number] ([id number] HUDMERLIN,RACHEL OMAS PATIENT MEDICARE (WNR) MEDICARE (M) PART B May 07, 2001 PART B [id number] ([id number] HUDRACHEL BOYER OMGUANACO PATIENT Selected Encounter This section includes the information on record at [place] for the Encounter. Date/Time Encounter Type Encounter Description Reason Pro vider Source Jul 31, 2023 12:00 AM Outpatient Encounter COMMUNITY CARE CONSULT IHE Encounter [...] 20 appointments. The data comes from all [place] treatment facilities. Appointment Date/Time Appointment Type Appointme nt Facility Name Aug 05, 2023 11:00 AM [place] [facility] [place] [facility] Aug 14, 2023 06:00 AM [place] [facility] Aug 28, 2023 11:00 AM [place] [facility] November 21, 2023 08:00 AM [place] [facility] December 04, 2023 11:00 AM [place] [facility] Dec 23, 2023 11:00 AM [place] [facility] [place] [facility] Jan 21, 2024 08:00 AM [place] [facility] [facility] Lab Results: +/- 30 days of the encounter This section includes the Chemistry and Hematology Lab Results on record with [place] for the patient. Radiology Reports and Pathology Reports are provided separately, in subsequent sections. Lab Results This section contains the Chemistry/Hematology Results that were resulted 30 days before or 30 daysafter the date of the Encounter. Date/Time Source Result Type Result - Unit Interpretation Reference Range Comment Aug 15, 2023 11:00 [facility] MICROALBUMIN CREATININE RATIO PANEL Specimen Type: URINE No comment entered. Ordering Provider: FABI MCKEON Report Released Date/Time: May 12, 2023 12:16 PM Reporting Lab: [facility] [address] [address] Performing Lab: [place] [facility] [facility] [place] [facility] [address] [address] MICROALBUMIN/C REATININE RATIO 112.4 mg/g H 0-29.9 MICROALBUMIN,Q UANTITATIVE 1.5 mg/dL RR UNAVAIL CREATININE URINE 13.35 mg/dL Aug 01, 2023 11:00 AM [place] [facility] [facility] LIPID PANEL FASTING Specimen Type: SERUM No comment entered. Ordering Provider: FABI MCKEON Report Released Date/Time: May 12, 2023 12:16 PM Reporting Lab: [place] [facility] [address] [address] Performing Lab: [address] [address] CHOLESTEROL 157 mg/dL TRIGLYCERIDE 63 mg/dL 0-150 LDL calculated 65 mg/dL 0-129 CHOL/HDL 2.0 HDL CHOLESTEROL 79 mg/dL H 40-60 Aug 01, 2023 11:00 AM [facility] HEMOGLOBIN A1C PANEL Specimen Type: BLOOD [...] May 12, 2023 12:16 PM Reporting Lab: [address] [address] Performing Lab: [address] [address] HEMOGLOBIN A1C 7.3 H 4.0-5.6 Aug 01, 2023 11:00 AM [facility] BASIC METABOLIC PANEL (non-fasting) Specimen Type: SERUM No comment entered. Ordering Provider: FABI MCKEON Report Released Date/Time: May 12, 2023 12:16 PM Reporting Lab: [address] [address] Performing Lab: [address] [address] UREA NITROGEN 40 mg/dL H 7-25 GLUCOSE [...] and tobacco- related health factors from the [place] facility where the Encounter took place. Current Smoking Status This section includes the most current smoking, or tobacco-related health factor, from the [place] facility where the Encounter took place. Date/Time Current Smoking Status Comment Benjy it May 07, 2022 09:00 AM VA-TOBACCO FORMER USER [place] [facility] [place] [facility] Tobacco Use History This section includes a history of the smoking, or tobacco-related health factors, that were collected on or before the date of the Encounter. The data comes from the [place] facility where the Encounter took place. Date/Time Smoking Status/Tobac co Use Comment Facility May 07, 2022 09:00 AM VA-TOBACCO QUIT 15 YRS OR MORE [place] [facility] [facility] [facility] May 21, 2021 08:00 AM VA-TOBACCO FORMER USER [place] [facility] [facility] [facility] May 21, 2021 08:00 AM VA-TOBACCO QUIT 15 YRS OR MORE [place] [facility] [place] [facility] Apr 24, 2020 11:00 AM VA-TOBACCO FORMER USER [place] [facility] [facility] Apr 24, 2020 11:00 AM VA-TOBACCO QUIT 15 YRS OR MORE [place] [facility] [facility] Jan 15, 2018 10:57 AM QUIT TOBACCO USE > 7 YEARS AGO [place] [facility] [facility] Dec 10, 2016 08:53 AM QUIT TOBACCO USE > 7 YEARS AGO [facility] [place] [facility] Jul 19, 2015 10:22 AM QUIT TOBACCO USE > 7 YEARS AGO Quit about 40 years ago. [place] [facility] [place] [facility] November 14, 2004 10:00 AM HISTORY OF SMOKING [place] [facility] [facility] [facility] November 14, 2004 10:00 AM LIFETIME NON-SMOKER [place] [facility] [facility] Oct 25, 2003 10:34 AM HISTORY OF SMOKING [place] [facility] [facility] Oct 07, 2002 09:41 AM HISTORY OF SMOKING [place] [facility] [place] [facility] Nov 03, 2001 10:31 AM QUIT TOBACCO USE > 7 YEARS AGO [place] [facility] [facility] Jul 31, 2001 02:15 PM NON-TOBACCO USER Quit 20 yrs ago [facility] [place] [facility] Advance Directives: All historical and current Section Date Range: From patient's date of to the date document was created. This section includes ALL of a patient's completed or amended [place] Advance and Rescinded Directives. The entries below indicate that a directive exists for the patient, but an actual copy is not included with this document. The data comes from all [place] facilities. Date Advance Directives Provider Source Jul 03, 2023 ADVANCE DIRECTIVE JLUIS,LISA [facility] Encounter Notes: All associated encounter notes This section contains the clinical notes associated to the Encounter. Date/Time Encounter Note(s) Provider Source Jul 31, 2023 12:00 AM NONVA CONSULT: LOCAL TITLE: COMMUNITY CARE-CONSULT RESULT NOTE STANDARD TITLE: NONVA CONSULT DATE OF NOTE: JUL 31, 2023 ENTRY DATE: SEP 01, 2023@12:58:30 AUTHOR: YAMEL ARITA EXP COSIGNER: URGENCY: STATUS: COMPLETED VistA Imaging - Scanned Document SCANNED DOCUMENT SIGNATURE NOT REQUIRED Electronically Filed: 09/01/2023 by: YAMEL ARITA [facility] MAKER HAND YAMEL ARITA [facility]
--- OUTSIDE RECORDS SUMMARY | 2024-07-04 16:08 | XMS_ITS ---
Author Name [facility] [place] Organization [facility] [place] Address [address] [place] [address] Care Team Providers Care Aircraft Manager Name Role Phone ROBERT DAVIS Primary [...] O MEDEX BRONZ E Jun 06, 2001 [id number] [phone] [facility] OMAS PATIENT ANTHEM BCBS OF CT (BLUECARD) MEDICARE SUPPLEMEN BHARGAVI PSUED O MEDEX BRONZ E Jun 06, 2001 [id number] OM[place] PATIENT BCBS [place] MEDICARE SUPPLEMEN BHARGAVI MEDEX BRONZ E Jun 06, 2001 [id number] [facility] OMAS PATIENT BCBS OR MEDICARE SUPPLEMEN BHARGAVI PSUED O MEDEX BRONZ E Jun 06, 2001 [id number] [facility] OM[place] PATIENT [place] MED[place] SUPPLEMEN BHARGAVI PSUED O MEDEX BRONSalbador E Jun 06, 2001 [id number] [phone] HUDOCK,RACHEL OMAS PATIENT MEDICARE (WNR) MEDICARE (M) PART A May 07, 2001 PART A [id number] HUDOCK,RACHEL OMAS PATIENT MEDICARE (WNR) MEDICARE (M) PART B May 07, 2001 PART B [id number] ([id number] HUDOCK,RACHEL OMAS PATIENT MEDICARE (WNR) MEDICARE (M) PART A May 07, 2001 PART A [id number] ([id number] 00 HUDOCK,RACHEL OMAS PATIENT MEDICARE (WNR) MEDICARE (M) PART B May 07, 2001 PART B [id number] HUDMERLIN,RACHEL OMAS PATIENT MEDICARE (WNR) MEDICARE (M) PART A May 07, 2001 PART A [id number] HUDMERLIN,RACHEL OMAS PATIENT MEDICARE (WNR) MEDICARE (M) PART B May 07, 2001 PART B [id number] HUDMERLIN,RACHEL OMAS PATIENT MEDICARE (WNR) MEDICARE (M) PART A May 07, 2001 PART A [id number] ([id number] HUDMERLIN,RACHEL OMAS PATIENT MEDICARE (WNR) MEDICARE (M) PART B May 07, 2001 PART B [id number] HUDRACHEL BOYER OMAS PATIENT Selected Encounter This section includes the information on record at [place] for the Encounter. Date/Time Encounter Type Encounter Description Reason Pro vider Source Aug 24, 2023 02:16 PM Outpatient Encounter ENDOCRINOLOGY IHE Encounter Template [...] 20 appointments. The data comes from all [place] treatment facilities. Appointment Date/Time Appointment Type Appointme nt Facility Name Aug 28, 2023 11:00 AM [place] [facility] November 21, 2023 08:00 AM [place] [facility] December 04, 2023 11:00 AM [place] [facility] Dec 23, 2023 11:00 AM [place] [facility] Jan 21, 2024 08:00 AM [place] [facility] Lab Results: +/- 30 days of the encounter This section includes the Chemistry and Hematology Lab Results on record with [place] for the patient. Radiology Reports and Pathology Reports are provided separately, in subsequent sections. Lab Results This section contains the Chemistry/Hematology Results that were resulted 30 days before or 30 daysafter the date of the Encounter. Date/Time Source Result Type Result - Unit Interpretation Reference Range Comment Aug 15, 2023 11:00 AM [facility] MICROALBUMIN CREATININE RATIO PANEL Specimen Type: URINE No comment entered. Ordering Provider: FABI MCKEON Report Released Date/Time: May 12, 2023 12:16 PM Reporting Lab: [facility] [place] [facility] [address] [facility] [address] Performing Lab: [facility] [place] [facility] [address] [facility] [address] MICROALBUMIN/C REATININE RATIO 112.4 mg/g H 0-29.9 MICROALBUMIN,Q UANTITATIVE 1.5 mg/dL RR UNAVAIL CREATININE URINE 13.35 mg/dL Aug 01, 2023 11:00 AM [facility] LIPID PANEL FASTING Specimen Type: SERUM No comment entered. Ordering Provider: FABI MCKEON Report Released Date/Time: May 12, 2023 12:16 PM Reporting Lab: [facility] [address] [facility] [address] Performing Lab: [facility] [address] [facility] [address] CHOLESTEROL 157 mg/dL TRIGLYCERIDE 63 mg/dL 0-150 LDL calculated 65 mg/dL 0-129 CHOL/HDL 2.0 HDL CHOLESTEROL 79 mg/dL H 40-60 Aug 01, 2023 11:00 AM [facility] HEMOGLOBIN A1C PANEL Specimen Type: BLOOD [...] May 12, 2023 12:16 PM Reporting Lab: [address] [address] Performing Lab: [address] [address] HEMOGLOBIN A1C 7.3 H 4.0-5.6 Aug 01, 2023 11:00 AM [facility] BASIC METABOLIC PANEL (non-fasting) Specimen Type: SERUM No comment entered. Ordering Provider: FABI MCKEON Report Released Date/Time: May 12, 2023 12:16 PM Reporting Lab: [address] [address] Performing Lab: [address] [address] UREA NITROGEN 40 mg/dL H 7-25 GLUCOSE [...] and tobacco- related health factors from the [place] facility where the Encounter took place. Current Smoking Status This section includes the most current smoking, or tobacco-related health factor, from the [place] facility where the Encounter took place. Date/Time Current Smoking Status Comment Facil ity May 07, 2022 09:00 AM VA-TOBACCO [facility] Tobacco Use History This section includes a history of the smoking, or tobacco-related health factors, that were collected on or before the date of the Encounter. The data comes from the [place] facility where the Encounter took place. Date/Time Smoking Status/Tobac co Use Comment Facility May 07, 2022 09:00 AM VA-TOBACCO QUIT 15 YRS OR MORE [facility] May 21, 2021 08:00 AM VA-TOBACCO FORMER USER [place] [facility] May 21, 2021 08:00 AM VA-TOBACCO QUIT 15 YRS OR MORE [facility] Apr 24, 2020 11:00 AM VA-TOBACCO FOR[facility]ER [facility] Apr 24, 2020 11:00 AM VA-TOBACCO QUIT 15 YRS OR MORE [facility] [place] [place] [facility] Jan 15, 2018 10:57 AM QUIT TOBACCO USE > 7 YEARS AGO [facility] [place] [facility] Dec 10, 2016 08:53 AM QUIT TOBACCO USE > 7 YEARS AGO [facility] [place] [place] [facility] Jul 19, 2015 10:22 AM QUIT TOBACCO USE > 7 YEARS AGO Quit about 40 years ago. [facility] [place] [facility] November 14, 2004 10:00 AM [facility] November 14, 2004 10:00 AM LIFETIME NON-SMOKER [facility] [place] [facility] Oct 25, 2003 10:34 AM HISTORY OF SMOKING [facility] [place] [facility] Oct 07, 2002 09:41 AM [facility] [place] [facility] Nov 03, 2001 10:31 AM QUIT TOBACCO USE > 7 YEARS AGO [facility] Jul 31, 2001 02:15 PM NON-TOBACCO USER Quit 20 yrs ago [facility] Advance Directives: All historical and current Section Date Range: From patient's date of to the date document was created. This section includes ALL of a patient's completed or amended [place] Advance and Rescinded Directives. The entries below indicate that a directive exists for the patient, but an actual copy is not included with this document. The data comes from all [place] facilities. Date Advance Directives Provider Source Jul 03, 2023 ADVANCE DIRECTIVE JLUIS,LISA [place] [facility] Encounter Notes: All associated encounter notes This section contains the clinical notes associated to the Encounter. 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 Please call if you have any questions or concerns at [phone] option 2 option 4. Sincerely, MD LINDA Mims ALICE [place] [facility]
--- OUTSIDE RECORDS SUMMARY | 2024-07-04 16:08 | XMS_ITS | Encounter Summary ---
Author Name [facility] [place] [place] Organization [facility] [place] Address [address] [place] [id number] Care Team Providers Care Buildings And Grounds Superintendent Name Role Phone ROBERT DAVIS Primary Care [...] O MEDEX BRONZ E Jun 06, 2001 [id number] OMAS PATIENT ANTHEM BCBS OF CT (BLUECARD) MEDICARE SUPPLEMEN BHARGAVI PSUED O MEDEX BRONZ E Jun 06, 2001 [id number] OMAS PATIENT BCBS IN MEDICARE SUPPLEMEN BHARGAVI MEDEX BRONZ E Jun 06, 2001 [id number] OMAS PATIENT BCBS IN MEDICARE SUPPLEMEN BHARGAVI PSUED O MEDEX BRONZ E Jun 06, 2001 [id number] HUDRACHEL BOYER OMAS PATIENT [place] MEDICARE SUPPLEMEN BHARGAVI PSUED O MEDEX BRONZ E Jun 06, 2001 [id number] [phone] HUDOCK,RACHEL OMAS PATIENT MEDICARE (WNR) MEDICARE (M) PART A May 07, 2001 PART A [id number] HUDOCK,RACHEL OMAS PATIENT MEDICARE (WNR) MEDICARE (M) PART B May 07, 2001 PART B [id number] ([id number] HUDOCK,RACHEL OMAS PATIENT MEDICARE (WNR) MEDICARE (M) PART A May 07, 2001 PART A [id number] ([id number] HUDOCK,RACHEL OMAS PATIENT MEDICARE (WNR) MEDICARE (M) PART B May 07, 2001 PART B [id number] ([id number] HUDMERLIN,RACHEL OMAS PATIENT MEDICARE (WNR) MEDICARE (M) PART A May 07, 2001 PART A [id number] HUDMERLIN,RACHEL OMAS PATIENT MEDICARE (WNR) MEDICARE (M) PART B May 07, 2001 PART B [id number] HUDMERLIN,RACHEL OMAS PATIENT MEDICARE (WNR) MEDICARE (M) PART A May 07, 2001 PART A [id number] HUDMERLIN,RACHEL OMAS PATIENT MEDICARE (WNR) MEDICARE (M) PART B May 07, 2001 PART B [id number] ([id number] HUDRACHEL BOYER OMGUANACO PATIENT Selected Encounter This section includes the information on record at [place] for the Encounter. Date/Time Encounter Type Encounter Description Reason Pro vider Source Aug 24, 2023 12:31 PM Outpatient Encounter ADMIN PAT ACTIVTIES (MASNONCT) IHE Encounter Template Text not used by [place] Plan of Treatment: Future Appointments (+ 6 [...] 20 appointments. The data comes from all [facility] facilities. Appointment Date/Time Appointment Type Appointme nt Facility Name Aug 28, 2023 11:00 AM AMBULATORY [place]ICINE [place] [facility] [place] [facility] November 21, 2023 08:00 AM AMBULATORY [place]IC[place] [facility] [place] [facility] December 04, 2023 11:00 AM AMBULATORY - [place]ICINE [place] [facility] [place] [facility] Dec 23, 2023 11:00 AM AMBULATORY - [place]ICINE [place] [facility] [place] [facility] Jan 21, 2024 08:00 AM [facility] Lab Results: +/- 30 days of the encounter This section includes the Chemistry and Hematology Lab Results on record with [place] for the patient. Radiology Reports and Pathology Reports are provided separately, in subsequent sections. Lab Results This section contains the Chemistry/Hematology Results that were resulted 30 days before or 30 daysafter the date of the Encounter. Date/Time Source Result Type Result - Unit Interpretation Reference Range Comment Aug 15, 2023 11:00 AM [facility] MICROALBUMIN CREATININE RATIO PANEL Specimen Type: URINE No comment entered. Ordering Provider: FABI MCKEON Report Released Date/Time: May 12, 2023 12:16 PM Reporting Lab: [facility] [address] [facility] [address] Performing Lab: [address] [address] MICROALBUMIN/C REATININE RATIO 112.4 mg/g H 0-29.9 MICROALBUMIN,Q UANTITATIVE 1.5 mg/dL RR UNAVAIL CREATININE URINE 13.35 mg/dL Aug 01, 2023 11:00 AM [facility] HEMOGLOBIN A1C PANEL Specimen Type: BLOOD [...] May 12, 2023 12:16 PM Reporting Lab: [facility] [address] [facility] [address] Performing Lab: [address] [address] HEMOGLOBIN A1C 7.3 H 4.0-5.6 Aug 01, 2023 11:00 AM [facility] LIPID PANEL FASTING Specimen Type: SERUM No comment entered. Ordering Provider: FABI MCKEON Report Released Date/Time: May 12, 2023 12:16 PM Reporting Lab: [address] [address] Performing Lab: [address] [address] CHOLESTEROL 157 mg/dL TRIGLYCERIDE 63 mg/dL 0-150 LDL calculated 65 mg/dL 0-129 CHOL/HDL 2.0 HDL CHOLESTEROL 79 mg/dL H 40-60 Aug 01, 2023 11:00 AM [facility] BASIC METABOLIC PANEL (non-fasting) Specimen Type: SERUM No comment entered. Ordering Provider: FABI MCKEON Report Released Date/Time: May 12, 2023 12:16 PM Reporting Lab: [facility] [address] [facility] [address] Performing Lab: [address] [address] UREA NITROGEN 40 mg/dL H 7-25 GLUCOSE [...] and tobacco- related health factors from the [place] facility where the Encounter took place. Current Smoking Status This section includes the most current smoking, or tobacco-related health factor, from the [place] facility where the Encounter took place. Date/Time Current Smoking Status Comment [facility] it May 07, 2022 09:00 AM VA-TOBACCO FOR[facility] Tobacco Use History This section includes a history of the smoking, or tobacco-related health factors, that were collected on or before the date of the Encounter. The data comes from the [place] facility where the Encounter took place. Date/Time Smoking Status/Tobac co Use Comment Facility May 07, 2022 09:00 AM VA-TOBACCO QUIT 15 YRS OR MORE [facility] May 21, 2021 08:00 AM VA-TOBACCO FORMER USER [place] [facility] [place] [facility] May 21, 2021 08:00 AM VA-TOBACCO QUIT 15 YRS OR MORE [place] [facility] [place] [facility] Apr 24, 2020 11:00 AM VA-TOBACCO FORMER USER [facility] Apr 24, 2020 11:00 AM VA-TOBACCO QUIT 15 YRS OR [facility] [place] [facility] Jan 15, 2018 10:57 AM QUIT TOBACCO USE > 7 YEARS AGO [facility] [place] [facility] Dec 10, 2016 08:53 AM QUIT TOBACCO USE > 7 YEARS AGO [place] [facility] [place] [facility] Jul 19, 2015 10:22 AM QUIT TOBACCO USE > 7 YEARS AGO Quit about 40 years ago. [place] [facility] [place] [facility] November 14, 2004 10:00 AM [facility] [place] [facility] November 14, 2004 10:00 AM LIFETIME NON-SMOKER [place] [facility] [place] [facility] Oct 25, 2003 10:34 AM HISTORY OF SMOKING [facility] [place] [facility] Oct 07, 2002 09:41 AM HISTORY OF SMOKING [place] [facility] [place] [facility] Nov 03, 2001 10:31 AM QUIT TOBACCO USE > 7 YEARS AGO [place] [facility] [place] [facility] Jul 31, 2001 02:15 PM NON-TOBACCO USER Quit 20 yrs ago [facility] Advance Directives: All historical and current Section Date Range: From patient's date of to the date document was created. This section includes ALL of a patient's completed or amended [place] Advance and Rescinded Directives. The entries below indicate that a directive exists for the patient, but an actual copy is not included with this document. The data comes from all [place] facilities. Date Advance Directives Provider Source Jul 03, 2023 ADVANCE DIRECTIVE RICHARD BAZZI [facility] Encounter Notes: All associated encounter notes This section contains the clinical notes associated to the Encounter. Date/Time Encounter Note(s) Provider Source Aug 24, 2023 12:31 PM PHARMACY NOTE: LOCAL TITLE: V1 PHARMACY CUSTOMER CARE MEDICATION RENEWAL STANDARD TITLE: PHARMACY NOTE DATE OF NOTE: AUG 24, 2023@12:31 ENTRY DATE: AUG 24, 2023@12:31:13 AUTHOR: SAJI ALVARENGA I EXP COSIGNER: URGENCY: STATUS: COMPLETED Date: Aug Division: [facility] referred by Pharmacy Call Center for medication renewal: Non-controlled/maintenanc e medication Medications requested: [id number] FUROSEMIDE 20MG TAB Defer to primary care provider To be mailed . Please review and renew if appropriate. *This note was generated by [facility]/[place] Pharmacy Customer Care. If you have any questions or need assistance, do not contact this author. Please refer all questions to your local, on-site pharmacy departments. /genoveva/ Saji Alvarenga CPhT Asset Liability Analyst, [place] / Pharmacy Customer Care Signed: 08/24/2023 12:31 Receipt Acknowledged By: 08/26/2023 13:04 /genoveva/ MARQUES AMADO NURSE PRACTITIONER 08/26/2023 11:17 /genoveva/ [facility] toll gate tender SAJI ALVARENGA I [place] [facility]
--- OUTSIDE RECORDS SUMMARY | 2024-07-04 16:08 | XMS_ITS | Encounter Summary ---
Author Name [facility] [place] Organization [facility] [place] Address [address] [place] [id number] Care Team Providers Care Litigation Counsel Name Role Phone ROBERT DAVIS Primary Care Provider Unav ailable RICHARD BZAZI Unavailable Unavailable CASSANDRA FERRELL Unavailable Unavailable KELSEA JO Unavailable Unavailable MONSE DUBON Unavailable Unavailable MILLIE DAVENPORT Unavailable Unavailable DARSHAN OLIVERA Unavailable Unavailable СЕРГЕЙ, JENS Unavailable Unavailable RNOY, PADMA Unavailable Unavailable Insurance Providers: All historical [...] O MEDEX BRONZ E Jun 06, 2001 [id number] [place] PATIENT ANTHEM BCBS OF [place] (BLUECARD) MEDICARE SUPPLEMEN BHARGAVI PSUED O MEDEX BRONZ E Jun 06, 2001 [id number] [place] PATIENT [place] MED[place] SUPPLEMEN BHARGAVI MEDEX BRONZ E Jun 06, 2001 [id number] [phone] [place] SU[place] BHARGAVI PSUED O MEDEX BRONZ E Jun 06, 2001 [id number] [phone] HUDRACHEL BOYER [place] PAT[place] SUPPLEMEN BHARGAVI PSUED O MEDEX BRONZ E Jun 06, 2001 [id number] [phone] HUDOCK,RACHEL OMAS PATIENT MEDICARE (WNR) MEDICARE (M) PART A May 07, 2001 PART A [id number] HUDOCK,RACHEL OMAS PATIENT MEDICARE (WNR) MEDICARE (M) PART B May 07, 2001 PART B [id number] HUDOCK,RACHEL OMAS PATIENT MEDICARE (WNR) MEDICARE (M) PART A May 07, 2001 PART A [id number] HUDOCK,RACHEL OMAS PATIENT MEDICARE (WNR) MEDICARE () PART B May 07, 2001 PART B [id number] HUDMERLIN,RACHEL OMAS PATIENT MEDICARE (WNR) MEDICARE () PART A May 07, 2001 PART A [id number] HUDMERLIN,RACHEL OMAS PATIENT MEDICARE (WNR) MEDICARE (M) PART B May 07, 2001 PART B [id number] HUDMERILN,RACHEL OMAS PATIENT MEDICARE (WNR) MEDICARE () PART A May 07, 2001 PART A [id number] HUDMERLIN,RACHEL OMAS PATIENT MEDICARE (WNR) MEDICARE () PART B May 07, 2001 PART B [id number] HUDMERLIN,RACHEL OMAS PATIENT Selected Encounter This section includes the information on record at [place] for the Encounter. Date/Time Encounter Type Encounter Description Reason Provider Source Aug 28, 2023 11:00 AM OFFICE O/P EST HI 40 MIN ENDOCRINOLOGY ICD-10-CM E11.9 Type 2 diabetes mellitus without complications FABI MCKEON Mallory Encounter Template Text not used by [place] Assessments - Encounter Diagnoses This section includes the primary and secondary diagnoses documented for the Encounter. Date/Time Primary/Secondary Diagnosis Diagnosis Name Provider Source Aug 28, 2023 11:46 AM PRIMARY Type 2 diabetes mellitus without complications FABI MCKEON [place] [facility] [place] [facility] Aug 28, 2023 11:46 AM SECONDARY Essential (primary) hypertension MCKEONFABI [place] [facility] [place] [facility] Aug 28, 2023 11:46 AM SECONDARY Hyperlipidemia, unspecified FABI MCKEON [place] [facility] [place] [facility] Aug 28, 2023 11:46 AM SECONDARY Type 2 diabetes mellitus w diabetic chronic kidney disease MCKEONFABI [place] [facility] [place] [facility] Aug 28, 2023 11:46 AM SECONDARY Type 2 diabetes mellitus with diabetic polyneuropathy MCKEONFABI [place] [facility] [place] [facility] Aug 28, 2023 11:46 AM SECONDARY 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 This section includes future appointments and future orders which are active, pending or scheduled. Future Appointments This section includes appointments that were scheduled to occur 6 months from the date of the Encounter, up to a maximum of 20 appointments. The data comes from all [place] treatment facilities. Appointment Date/Time Appointment Type Appointme nt Facility Name November 21, 2023 08:00 AM AMBULATORY - MEDICINE [facility] [place] [facility] December 04, 2023 11:00 AM AMBULATORY MEDICINE [facility] [place] [facility] Dec 23, 2023 11:00 AM AMBULATORY MEDICINE [facility] [place] [facility] Jan 21, 2024 08:00 AM AMBULATORY MEDICINE [facility] Lab Results: +/- 30 [...] Range Comment Aug 15, 2023 11:[address] [facility] MICROALBUMIN CREATININE RATIO PANEL Specimen Type: URINE No comment entered. Ordering Provider: FABI MCKEON Report Released Date/Time: May 12, 2023 12:16 PM Reporting Lab: [facility] [address] [facility] [address] Performing Lab: [facility] [address] [facility] [address] MICROALBUMIN/C REATININE RATIO 112.4 mg/g H 0-29.9 MICROALBUMIN,Q UANTITATIVE 1.5 mg/dL RR UNAVAIL CREATININE URINE 13.35 mg/dL Aug 01, 2023 11:00 AM [facility] HEMOGLOBIN A1C PANEL Specimen Type: BLOOD [...] May 12, 2023 12:16 PM Reporting Lab: [facility] [address] [facility] [address] Performing Lab: [facility] [address] [facility] [address] HEMOGLOBIN A1C 7.3 H 4.0-5.6 Aug 01, 2023 11:00 AM [facility] LIPID PANEL FASTING Specimen Type: SERUM No comment entered. Ordering Provider: FABI MCKEON Report Released Date/Time: May 12, 2023 12:16 PM Reporting Lab: [facility] [address] [facility] [address] Performing Lab: [facility] [address] [facility] [address] CHOLESTEROL 157 mg/dL TRIGLYCERIDE 63 mg/dL 0-150 LDL calculated 65 mg/dL 0-129 CHOL/HDL 2.0 HDL CHOLESTEROL 79 mg/dL H 40-60 Aug 01, 2023 11:00 AM [facility] BASIC METABOLIC PANEL (non-fasting) Specimen Type: SERUM No comment entered. Ordering Provider: FABI MCKEON Report Released Date/Time: May 12, 2023 12:16 PM Reporting Lab: [facility] [address] [facility] [address] Performing Lab: [facility] [address] [facility] [address] UREA NITROGEN 40 mg/dL H 7-25 GLUCOSE [...] Height Weight Body Mass Index Source Aug 28, 2023 11:15 AM 98.1 72 131/50 16 97 4 69 148 22 [facility] Social History: Smoking Status (Most current) [...] took place. Date/Time Current Smoking Status Comment [facility] junior May 07, 2022 09:00 AM [place]-TOBAC[place] FORMER USER [facility] Tobacco Use History This section includes a history of the smoking, or tobacco-related health factors, that were collected on or before the date of the Encounter. The data comes from the [place] facility where the Encounter took place. Date/Time Smoking Status/Tobac co Use Comment Facility May 07, 2022 09:00 AM [facility] May 21, 2021 08:00 AM [facility] May 21, 2021 08:00 AM VA-TOBACCO QUIT [address] [facility] Apr 24, 2020 11:00 AM VA-TOBACCO FORMER [facility]ER [facility] Apr 24, 2020 11:00 AM VA-TOBACCO QUIT [address] [facility] Jan 15, 2018 10:57 AM QUIT TOBACCO USE > [address] [facility] Dec 10, 2016 08:53 AM QUIT TOBACCO USE > [address] [facility] Jul 19, 2015 10:22 AM QUIT TOBACCO USE > 7 YEARS AGO Quit about [address] [facility] November 14, 2004 10:00 AM H[address] OF SMOKING [facility] November 14, 2004 10:00 AM LIFETIME NON-SMOKER [facility] Oct 25, 2003 10:34 AM HISTORY OF [facility]MOKING [facility] Oct 07, 2002 09:41 AM H[address]ORY OF [facility]MOKING [facility] Nov 03, 2001 10:31 AM QUIT TOBACCO USE > [address] [facility] Jul 31, 2001 02:15 PM NON-TOBACCO USER Quit [address] [facility] Advance Directives: All historical and current [...] Jul 03, 2023 ADVANCE DIRECTIVE RICHARD BAZZI [facility] Encounter Notes: All associated encounter notes This section contains the clinical notes associated to the Encounter. 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 At last visit, endorsed sugary muffins for bfast. Sometimes still having these. Eating a lot of TV dinners. All endocrine labs were reviewed with the patient. Barriers/s supports for care: Followed by [facility]. Lives alone. Medications for diabetes: empagliflozin aspart and glargine 14 units daily BG readings: Meter download Collection DT Spec HGBA1c 08/01/2023 11:00 BLOOD 7.3 H 05/07/2023 11:00 BLOOD 7.0 H 01/28/2023 09:30 BLOOD 7.7 H 10/21/2022 08:54 BLOOD 6.9 H 04/30/2022 10:13 BLOOD 6.9 H Weight trend: 152 lbs BMI 22.58 148 lbs today, down 10 lbs since fall Food insecurity: No Pattern of eating throughout the day: Three meals Physical activity: Limited mobility Carbohydrate counting: no Episodes of hypoglycemia: no Hypoglycemia unawareness: Neuropathy pain: no pain or numbness Last eye evaluation: 06/2023 Stable proliferative diabetic retinopathy OU, s/p PRP. (-)CSME OU Last nephropathy screen MICROALBUMIN Aug 15, 2023@11:00 URINE mALB/Cr: 112.4 H mg/G 0 - 29.9 FindingsCREATININE-EGFR 08/01/23 11:00 1.21 05/07/23 11:00 1.16 01/28/23 09:30 1.06 Statin therapy:Aug 01 2023 CHOL 157 mg/dL <7 - 199 TRIG 63 mg/dL 0 - 150 HDL 79 H mg/dL 40 - 60 LDL 65 mg/dL 0 - 55 CAD: yes On asa: yes emergency kit/glucose tabs: Glucagon n/a Active problems - Computerized Problem List is the source for the followin. Hypertension 2. History of surgery 3. 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 Peripheral neuropathy due to type 2 diabetes mellitus 5. Diabetic retinopathy associated with type 2 diabetes mellitus 6. Coronary artery disease 7. Personal History of Colonic Polyps 8. Osteoarthritis 9. Elevated PSA (SNOMED CT 702412943) 10. Anemia 11. B12 deficiency monitoring status (SNOMED CT 357860095) 12. Other and unspecified alcohol dependence, unspecified drinking behavior (ICD 13. Chronic pain (SNOMED CT 93061981) 14. Hyperlipidemia (SNOMED CT 03256994) 15. Hypertensive heart AND chronic kidney disease with congestive heart failure 16. Diabetes mellitus (SNOMED CT 69773112) Active Outpatient Medications (including Supplies): AMMONIUM LACTATE 12% LOTION APPLY MODERATE AMOUNT ACTIVE TOPICALLY ONCE DAILY FOR DRY IRRITATED SKIN ATORVASTATIN CALCIUM 80MG TAB TAKE ONE TABLET BY MOUTH ACTIVE ONCE DAILY FOR HIGH CHOLESTEROL CHLORTHALIDONE 50MG TAB TAKE ONE TABLET BY MOUTH ONCE ACTIVE (S) DAILY TO REMOVE FLUID/CONTROL BLOOD PRESSURE CHOLECALCIF 50MCG (D3-2,000UNIT) TAB TAKE TWO TABLETS BY ACTIVE MOUTH TWICE DAILY FOR VITAMIN SUPPLEMENTATION CYANOCOBALAMIN 1000MCG TAB TAKE ONE TABLET BY MOUTH DAILY ACTIVE FOR VITAMIN SUPPLEMENTATION DOCUSATE NA 100MG CAP TAKE ONE CAPSULE BY MOUTH TWICE ACTIVE DAILY NEEDED TO SOFTEN STOOL EMPAGLIFLOZIN 25MG TAB TAKE ONE TABLET BY MOUTH ONCE DAILY ACTIVE FUROSEMIDE 20MG TAB TAKE ONE TABLET BY MOUTH EVERY MORNING ACTIVE TO REMOVE FLUID/CONTROL BLOOD PRESSURE GABAPENTIN 100MG CAP TAKE TWO CAPSULES BY MOUTH AT BEDTIME ACTIVE FOR NERVE PAIN INSULIN SYRINGE 0.5ML 30G 12MM USE 1 SYRINGE ACTIVE SUBCUTANEOUSLY FOUR TIMES DAILY NEEDED FOR INSULIN INJECTIONS INSULIN,ASPART,HUMAN 100 UNIT/ML INJ INJECT 5 UNITS ACTIVE SUBCUTANEOUSLY EVERY MORNING NEEDED AND INJECT 3 UNITS AT NOON AND INJECT 8 UNITS EVERY EVENING BEFORE SUPPER INSULIN,GLARGINE-YFGN 100UNIT/ML INJ INJECT 14 UNITS ACTIVE SUBCUTANEOUSLY ONCE DAILY LISINOPRIL 10MG TAB TAKE ONE TABLET BY MOUTH ONCE DAILY ACTIVE FOR HIGH BLOOD PRESSURE TO CONTROL BLOOD PRESSURE NUTR SUPL GLUCERNA THER NUTR SHAKE RICK DRINK 1 BOTTLE BY ACTIVE MOUTH ONCE DAILY FOR NUTRITIONAL SUPPLEMENTATION Non-VA ACETAMINOPHEN 500MG TAB 500MG BY MOUTH TWICE DAILY ACTIVE NEEDED Non-VA ASPIRIN 81MG EC TAB 81MG BY MOUTH ONCE DAILY ACTIVE Non-VA MULTIVITAMIN/MINERALS CAP/TAB 1 TABLET BY MOUTH ACTIVE EVERY DAY Non-VA OTHER CAP/TAB IRON 28 MG? BY MOUTH ONCE DAILY ACTIVE SHX:as above ROS: no cough or fever PE: affect pleasant appropriate Speaking easily in full sentences Feet pulses not palpable dependent rubor sensory to monofilament mild decrease lesions no Medical Decision Making: Diabetes Mellitus type 2 with chronic renal disease, peripheral neuropathy, PDR: He has declined a glucose sensor in the past, and still declines. Insulin Dose: increase glargine to 17 units daily. Novlog Reviewed CHO estimation, targets and role in avoiding hypoglycemia of consistent CHO. Carbohydrate targets 45 gm TID Blood sugar targets 130-150 premeal and 150-200 after Hemoglobin A1c Targets 8 Hypertension well controlled Hyperlipidemia well controlled Team follow up Request [facility] nurtition to follow. lab bmp hgba1c next visit Insulin orders updated in cprs F/u three mos FTF Medication Reconciliation: Outpatient: Has the patient been taking medications as documented in the EMLR? No: Discrepencies were identified. See below. Essential Medication List for Review used to complete this medication reconciliation. INCLUDED IN THIS LIST: Alphabetical list of active outpatient prescriptions dispensed from this [place] (local) and dispensed from another [place] or [facility] facility (remote) as well as inpatient orders (local, pending and active), local clinic medications, locally documented non-VA medications, and local prescriptions that have or been discontinued in the past 90 days. - Discrepancies were identified, addressed, and discussed with the patient/caregiver at this encounter. - All changes in medications, including all non-VA/Herbal/OTC medications were entered into CPRS. - If there were any medications the patient should no longer take, they were discontinued. - The patient/caregiver was instructed to update this list, discard old lists, and take this list to the next appointment, whether with a VA or non-VA provider. JLV Link Data on this list may not be complete. Please check [facility] [employer]. Allergies/ADRs (Tool #5) FACILITY ALLERGY/ADR -------- No Remote Allergy/ADR Data available for this patient [facility] ([facility] INCLUDED IN THIS LIST: Alphabetical list of active outpatient prescriptions dispensed from this [place] (local) and dispensed from another [place] or [facility] facility (remote) as well as inpatient orders (local pending and active), local clinic medications, locally documented non-VA medications, and local prescriptions that have or been discontinued in the past 90 days. Non-VA Meds Last Documented On: December 04, 2022 NOTE The display of VA prescriptions dispensed from another [place] or [facility] facility (remote) is limited to active outpatient prescription entries matched to National Drug File at the originating site and may not include some items such as investigational drugs, compounds, etc. NOT INCLUDED IN THIS LIST: Medications self-entered by the patient into personal health records (i.e. [employer]) are NOT included in this list. Non-VA medications documented outside this [place], remote inpatient orders (regardless of status) and remote clinic medications are NOT included in this list. The patient and provider must always discuss medications the patient is taking, regardless of where the medication was dispensed or obtained. Non-VA ACETAMINOPHEN 500MG TAB TAKE ONE TABLET BY MOUTH TWICE DAILY NEEDED December 04, 2022 Non-VA medication not recommended by VA provider. Indication: FOR BACKACHE OUTPT AMMONIUM LACTATE 12% LOTION (Status = Active) APPLY MODERATE AMOUNT TOPICALLY ONCE DAILY FOR DRY IRRITATED SKIN Rx# [id number] Last Released: 08/07/23 Qty/Days Supply: Rx Expiration Date: 08/05/24 Refills Remainin Indication: FOR DRY SKIN Non-VA ASPIRIN 81MG EC TAB TAKE ONE TABLET BY MOUTH ONCE DAILY OUTPT ATORVASTATIN CALCIUM 80MG TAB (Status = Active) TAKE ONE TABLET BY MOUTH ONCE DAILY FOR HIGH CHOLESTEROL Rx# [id number] Last Released: 08/08/23 Qty/Days Supply: Rx Expiration Date: 01/29/24 Refills Remainin Indication: FOR HIGH CHOLESTEROL OUTPT CHLORTHALIDONE 50MG TAB (Status = Active/Suspended) TAKE ONE TABLET BY MOUTH ONCE DAILY TO REMOVE FLUID/CONTROL BLOOD PRESSURE Rx# [id number] Last Released: 06/04/23 Qty/Days Supply: Rx Expiration Date: 12/31/23 Refills Remainin OUTPT CHOLECALCIF 50MCG (D3-2,000UNIT) TAB (Status = Active) TAKE TWO TABLETS BY MOUTH TWICE DAILY FOR VITAMIN SUPPLEMENTATION Rx# [id number] Last Released: 04/10/23 Qty/Days Supply: 400/90 Rx Expiration Date: 10/25/23 Refills Remainin OUTPT CYANOCOBALAMIN 1000MCG TAB (Status = Active) TAKE ONE TABLET BY MOUTH DAILY FOR VITAMIN SUPPLEMENTATION Rx# [id number] Last Released: 04/10/23 Qty/Days Supply: 90/90 Rx Expiration Date: 10/20/23 Refills Remainin OUTPT DOCUSATE NA 100MG CAP (Status = Active) TAKE ONE CAPSULE BY MOUTH TWICE DAILY NEEDED TO SOFTEN STOOL Rx# [id number] Last Released: 07/09/23 Qty/Days Supply: 100/50 Rx Expiration Date: 07/02/24 Refills Remainin Indication: FOR CONSTIPATION OUTPT EMPAGLIFLOZIN 25MG TAB (Status = Active) TAKE ONE TABLET BY MOUTH ONCE DAILY Rx# [id number] Last Released: 08/08/23 Qty/Days Supply: 90/90 Rx Expiration Date: 05/12/24 Refills Remainin Indication: FOR TYPE 2 DIABETES MELLITUS OUTPT FUROSEMIDE 20MG TAB (Status = Discontinued) TAKE ONE TABLET BY MOUTH EVERY MORNING TO REMOVE FLUID/CONTROL BLOOD PRESSURE Rx# [id number] Last Released: 08/22/23 Qty/Days Supply: 9090 Rx Expiration Date: 10/29/23 Refills Remainin Indication: FOR HIGH BLOOD PRESSURE OUTPT FUROSEMIDE 20MG TAB (Status = Active/Suspended) TAKE ONE TABLET BY MOUTH EVERY MORNING TO REMOVE FLUID/CONTROL BLOOD PRESSURE Rx# [id number] Last Released: Qty/Days Supply: 9090 Rx Expiration Date: 08/26/24 Refills Remainin Indication: FOR HIGH BLOOD PRESSURE OUTPT GABAPENTIN 100MG CAP (Status = Active) TAKE TWO CAPSULES BY MOUTH AT BEDTIME FOR NERVE PAIN Rx# [id number] Last Released: 08/28/23 Qty/Days Supply: 180/90 Rx Expiration Date: 10/29/23 Refills Remainin Indication: FOR NERVE PAIN OUTPT INSULIN,ASPART,HUMAN 100 UNIT/ML INJ (Status = Active) INJECT 5 UNITS SUBCUTANEOUSLY EVERY MORNING NEEDED AND INJECT 3 UNITS AT NOON AND INJECT 8 UNITS EVERY EVENING BEFORE SUPPER Rx# [id number] Last Released: 08/05/23 Qty/Days Supply: Rx Expiration Date: 05/12/24 Refills Remainin Indication: FOR DIABETES OUTPT INSULIN,GLARGINE-YFGN 100UNIT/ML INJ (Status = Active) INJECT 14 UNITS SUBCUTANEOUSLY ONCE DAILY Rx# [id number] Last Released: 07/08/23 Qty/Days Supply: Rx Expiration Date: 05/12/24 Refills Remainin Indication: FOR DIABETES OUTPT LISINOPRIL 10MG TAB (Status = Active) TAKE ONE TABLET BY MOUTH ONCE DAILY FOR HIGH BLOOD PRESSURE TO CONTROL BLOOD PRESSURE Rx# [id number] Last Released: 08/22/23 Qty/Days Supply: Rx Expiration Date: 08/15/24 Refills Remainin Indication: FOR HIGH BLOOD PRESSURE OUTPT LISINOPRIL 5MG TAB (Status = Discontinued) TAKE ONE TABLET BY MOUTH ONCE DAILY FOR HIGH BLOOD PRESSURE TO CONTROL BLOOD PRESSURE Rx# [id number] Last Released: 04/16/23 Qty/Days Supply: Rx Expiration Date: 10/29/23 Refills Remainin Indication: FOR HIGH BLOOD PRESSURE Non-VA MULTIVITAMIN/MINERALS CAP/TAB TAKE ONE TABLET BY MOUTH EVERY DAY OUTPT NUTR SUPL GLUCERNA THER NUTR SHAKE RICK (Status = Active) DRINK 1 BOTTLE BY MOUTH ONCE DAILY FOR NUTRITIONAL SUPPLEMENTATION Rx# [id number] Last Released: 08/04/23 Qty/Days Supply: Rx Expiration Date: 12/21/23 Refills Remainin Indication: FOR NUTRITIONAL SUPPLEMENTATION Non-VA OTHER CAP/TAB TAKE IRON 28 MG? BY MOUTH ONCE DAILY SUPPLIES OUTPT ACCU-CHEK GUIDE ME (GLUCOSE) METER (Status = ) USE METER TO TEST BLOOD SUGARS THREE TIMES DAILY NEEDED Rx# [id number] Last Released: 04/24/23 Qty/Days Supply: Rx Expiration Date: 07/22/23 Refills Remainin Indication: DIABETIC OUTPT INSULIN SYRINGE 0.5ML 30G 12MM (Status = Active) USE 1 SYRINGE SUBCUTANEOUSLY FOUR TIMES DAILY NEEDED FOR INSULIN INJECTIONS Rx# [id number] Last Released: 05/14/23 Qty/Days Supply: Rx Expiration Date: 12/05/23 Refills Remainin /genoveva/ FABI MCKEON MD STAFF PHYSICIAN Signed: 08/28/2023 11:46 FABI MCKEON [facility]
--- OUTSIDE RECORDS SUMMARY | 2024-07-04 16:08 | XMS_ITS | Encounter Summary ---
Author Name [facility] [place] Organization [place] Address [address] [place] [id number] Care Team Providers Care Cruise Staff Member Name Role Phone ROBERT DAVIS Primary Care [...] O MEDEX BRONZ E Jun 06, 2001 [id number] OMAS PATIENT ANTHEM BCBS OF [place] (BLUECARD) MEDICARE SUPPLEMEN BHARGAVI PSUED O MEDEX BRONZ E Jun 06, 2001 [id number] [phone] [place] PAT[place] SUPPLEMEN BHARGAVI MEDEX BRONZ E Jun 06, 2001 [id number] [place] SUPPLEMEN BHARGAVI PSUED O MEDEX BRONZ E Jun 06, 2001 [id number] [phone] HUDRACHEL BOYER OMAS PATIENT BCBS OF [facility] MEDICARE SUPPLEMEN BHARGAVI PSUED O MEDEX BRONZ E Jun 06, 2001 [id number] HUDOCK,RACHEL OMAS PATIENT MEDICARE (WNR) MEDICARE (M) PART A May 07, 2001 PART A [id number] HUDOCK,RACHEL OMAS PATIENT MEDICARE (WNR) MEDICARE (M) PART B May 07, 2001 PART B [id number] HUDOCK,RACHEL OMAS PATIENT MEDICARE (WNR) MEDICARE (M) PART A May 07, 2001 PART A [id number] ([id number] HUDOCK,RACHEL OMAS PATIENT MEDICARE (WNR) MEDICARE (M) PART B May 07, 2001 PART B [id number] HUDOCK,RACHEL OMAS PATIENT MEDICARE (WNR) MEDICARE () PART A May 07, 2001 PART A [id number] HUDOCK,RACHEL OMAS PATIENT MEDICARE (WNR) MEDICARE (M) PART B May 07, 2001 PART B [id number] HUDOCK,RACHEL OMAS PATIENT MEDICARE (WNR) MEDICARE (M) PART A May 07, 2001 PART A [id number] HUDOCK,RACHEL OMAS PATIENT MEDICARE (WNR) MEDICARE (M) PART B May 07, 2001 PART B [id number] HUDOCK,RACHEL OMAS PATIENT Selected Encounter This section includes the information on record at [place] for the Encounter. Date/Time Encounter Type Encounter Description Reason Provider Source Sep 12, 2023 11:00 AM SELF CARE MNGMENT TRAINING [facility] Nursing (RN / LP) ICD-10-CM I10 Essential (primary) hypertension MILLIE DAVENPORT Mallory Encounter Template Text not used by [place] Assessments - Encounter Diagnoses This section includes the primary and secondary diagnoses documented for the Encounter. Date/Time Primary/Secondary Diagnosis Diagnosis Name Provider Source Sep 12, 2023 02:30 PM PRIMARY Essential (primary) hypertension [facility] DAVENPORT [facility] Sep 12, 2023 02:30 PM SECONDARY Type 2 diabetes mellitus without complications MILLIE DAVENPORT [facility] Plan of Treatment: Future Appointments (+ 6 months) and Future Tests (+/- 45 days) The Plan of Treatment section includes future care activities for the patient from all [place] treatmentfacilities. This section includes future appointments and future orders which are active, pending or scheduled. Future Appointments This section includes appointments that were scheduled to occur 6 months from the date of the Encounter, up to a maximum of 20 appointments. The data comes from all [place] treatment facilities. Appointment Date/Time Appointment Type Appointme nt Facility Name November 21, 2023 08:00 AM AMBULATORY MEDICINE [facility] December 04, 2023 11:00 AM [facility] Dec 23, 2023 11:00 AM AMBULATORY MEDICINE [facility] Jan 21, 2024 08:00 AM AMBULATORY MEDICINE [facility] Lab Results: +/- 30 days of the encounter This section includes the Chemistry and Hematology Lab Results on record with [place] for the patient. Radiology Reports and Pathology Reports are provided separately, in subsequent sections. Lab Results This section contains the Chemistry/Hematology Results that were resulted 30 days before or 30 daysafter the date of the Encounter. Date/Time Source Result Type Result - Unit Interpretation Reference Range Comment Aug 15, 2023 11:00 AM [facility] MICROALBUMIN CREATININE RATIO PANEL Specimen Type: URINE No comment entered. Ordering Provider: FABI MCKEON Report Released Date/Time: May 12, 2023 12:16 PM Reporting Lab: [facility] [address] [facility] [address] Performing Lab: [facility] [address] [facility] [address] MICROALBUMIN/C REATININE RATIO 112.4 mg/g H 0-29.9 MICROALBUMIN,Q UANTITATIVE 1.5 mg/dL RR UNAVAIL CREATININE URINE 13.35 mg/dL Vital Signs: All taken on the encounter date This section contains inpatient and outpatient Vital Signs collected on the date of the Encounter. Date/Time Temperature Pulse Blood Pressure Respiratory Rate SP02 Pain Height Weight Body Mass Index Source Sep 12, 2023 11:00 AM 97.7 70 138/64 16 100 1 [place] [facility] [place] [facility] Social History: Smoking Status (Most current) and Tobacco Use (All prior to encounter date) This section includes the most current, and the historical, smoking and tobacco- related health factors from the [place] facility where the Encounter took place. Current Smoking Status This section includes the most current smoking, or tobacco-related health factor, from the [place] facility where the Encounter took place. Date/Time Current Smoking Status Comment [facility] it May 07, 2022 09:00 AM VA-TOBACCO [facility] Tobacco Use History This section includes a history of the smoking, or tobacco-related health factors, that were collected on or before the date of the Encounter. The data comes from the [place] facility where the Encounter took place. Date/Time Smoking Status/Tobac co Use Comment Facility May 07, 2022 09:00 AM VA-TOBACCO QUIT 15 YRS OR MORE [place] [facility] [facility] May 21, 2021 08:00 AM VA-TOBACCO FORMER USER [place] [facility] May 21, 2021 08:00 AM VA-TOBACCO QUIT 15 YRS OR MORE [place] [facility] [place] [facility] Apr 24, 2020 11:00 AM VA-TOBACCO FORMER USER [place] [facility] [place] [facility] Apr 24, 2020 11:00 AM VA-TOBACCO QUIT 15 YRS OR MORE [place] [facility] [place] [facility] Jan 15, 2018 10:57 AM QUIT TOBACCO USE > 7 YEARS AGO [place] [facility] [place] [facility] Dec 10, 2016 08:53 AM QUIT TOBACCO USE > 7 YEARS AGO [place] [facility] [place] [facility] Jul 19, 2015 10:22 AM QUIT TOBACCO USE > 7 YEARS AGO Quit about 40 years ago. [place] [facility] [place] [facility] November 14, 2004 10:00 AM HISTORY OF SMOKING [place] [facility] [place] [facility] November 14, 2004 10:00 AM LIFETIME NON-SMOKER [place] [facility] [place] [facility] Oct 25, 2003 10:34 AM HISTORY OF [facility]MO[facility] Oct 07, 2002 09:41 AM HISTORY OF SMOKING [facility] Nov 03, 2001 10:31 AM QUIT TOBACCO USE > 7 YEARS AGO [facility] Jul 31, 2001 02:15 PM NON-TOBACCO USER Quit 20 yrs ago [facility] Advance Directives: All historical and current Section Date Range: From patient's date of to the date document was created. This section includes ALL of a patient's completed or amended [place] Advance and Rescinded Directives. The entries below indicate that a directive exists for the patient, but an actual copy is not included with this document. The data comes from all [place] facilities. Date Advance Directives Provider Source Jul 03, 2023 ADVANCE DIRECTIVE RICHARD BAZZI [facility] Encounter Notes: All associated encounter notes This section contains the clinical notes associated to the Encounter. Date/Time Encounter Note(s) Provider Source Oct 14, 2023 11:13 AM ADDENDUM: LOCAL TITLE: Addendum STANDARD TITLE: ADDENDUM DATE OF NOTE: OCT 14, 2023@11:13:07 ENTRY DATE: OCT 14, 2023@11:13:08 AUTHOR: ASHLEIGH DAVIS COSIGNER: URGENCY: STATUS: COMPLETED Please reassign to PACT 2 /genoveva/ ROBERT DAVIS RN,MSN,SAW SHARPENER-C HB NURSE PRACTITIONER Signed: 10/14/2023 11:13 Receipt Acknowledged By: 10/14/2023 12:14 /genoveva/ MONSE DUBON HB SUPERVISOR PAINTING SHIPYARD --- Original Document --- 09/12/23 [facility] RN PROGRESS NOTE: Nursing Progress Note Active [...] ACTIVE DAILY TO REMOVE FLUID/CONTROL BLOOD PRESSURE 4) CHOLECALCIF 1,250MCG (D3-50,000UNIT) CAP TAKE ONE ACTIVE CAPSULE BY MOUTH WEEKLY FOR VITAMIN D DEFICIENCY 5) CYANOCOBALAMIN 1000MCG TAB TAKE ONE TABLET BY MOUTH ACTIVE DAILY FOR VITAMIN SUPPLEMENTATION 6) DOCUSATE NA 100MG CAP TAKE ONE CAPSULE BY MOUTH TWICE ACTIVE DAILY NEEDED TO SOFTEN STOOL 7) EMPAGLIFLOZIN 25MG TAB TAKE ONE TABLET BY MOUTH ONCE ACTIVE (S) DAILY 8) FUROSEMIDE 20MG TAB TAKE ONE TABLET BY MOUTH EVERY ACTIVE (S) MORNING TO REMOVE FLUID/CONTROL BLOOD PRESSURE 9) GABAPENTIN 100MG CAP TAKE TWO CAPSULES BY MOUTH AT ACTIVE (S) BEDTIME FOR NERVE PAIN 10) INSULIN SYRINGE 0.5ML 30G 12MM USE 1 SYRINGE ACTIVE SUBCUTANEOUSLY FOUR TIMES DAILY NEEDED FOR INSULIN INJECTIONS 11) INSULIN,ASPART,HUMAN 100 UNIT/ML INJ INJECT 5 UNITS ACTIVE SUBCUTANEOUSLY EVERY MORNING NEEDED AND INJECT 3 UNITS AT NOON AND INJECT 8 UNITS EVERY EVENING BEFORE SUPPER 12) INSULIN,GLARGINE-YFGN 100UNIT/ML INJ INJECT 14 UNITS ACTIVE SUBCUTANEOUSLY ONCE DAILY 13) LISINOPRIL 10MG TAB TAKE ONE TABLET BY [...] home: 30min Problem addressed for this visit: htn, dm NURSING SUMMARY: RN visit performed in 's home for assessment of chronic disease mgt, CVCP assessment, medication captain's assistant and oversight, pain mgt, skin assessment, coping and home safety. is alert, oriented, pleasant. 's FEED MILL MANAGER present. Mood stable. BG range 130-200's. [place] requires reinforcement to follow ADA reccomendations. [place] does report to have sweets after dinner. Minimal activity. [place] reports to taking Novolog 5ux-3ux-6ux sc and 16ux of Semglee. Referred to Dr Mckeon note which notes that Semglee was increased to 17ux sc on Aug 25. informed and verbalizes understanding. also inquiring about the Vit D dosing. Vit D level 26. Vit D 3 50mcq twice a day dc'd and changed to Vit D3 weekly 50,000ux. [place] informed of new orders. Education provided. Updated list provided in home with instructions for 's dtr n law as she fills med box. Blood Pressure: 138/64 (09/12/2023 11:00) Pulse: 70 (09/12/2023 11:00) Respiration: 16 (09/12/2023 11:00) Temperature: 97.7 F [36.5 C] (09/12/2023 11:00) Pain Score: 1 (09/12/2023 11:00)back and neck pain. Tylenol prn with relief. 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 Encouraged elevation of extr, decreasing foods high in sodium. [place] eats alot of prepared frozen meals. HR:reg Bowel/Bladder:constipation managed with colace. Denies any urinary issues. Skin:CDI thick nail beds Home Safety safely adapted. Lives alone, children live nearby FALLS NO INFECTIONS NO ER/HOSPITALIZATIONS NO Teaching/goals: has ongoing complex medical needs and benefits from [facility] interdisciplinary management. and cg are included in decision making. All questions answered, education. regarding medications, disease mgt provided. and caregiver verbalize understanding. [place] will be free from falls, infections, and hospitalizations over the next 30 days. Patient verbalizes understanding to above and will call with any concerns or changes in condition. For emergent care call 911. Plan for next visit:October 14 chronic disease mgt, education screen for covid negative /es/ Millie MEEHAN [facility] business applications specialist Signed: 09/12/2023 14:30 Receipt Acknowledged By: 09/13/2023 12:13 /genoveva/ FABI MCKEON MD STAFF PHYSICIAN LATASHA DAVIS [place] [facility] Sep 12, 2023 02:07 PM HB NURSING NOTE: LOCAL TITLE: [facility] RN PROGRESS NOTE STANDARD TITLE: [facility] NURSING NOTE DATE OF NOTE: SEP 12, 2023@14:07 ENTRY DATE: SEP 12, 2023@14:07:44 AUTHOR: MILLIE DAVENPORT EXP COSIGNER: URGENCY: STATUS: [...] ACTIVE DAILY TO REMOVE FLUID/CONTROL BLOOD PRESSURE 4) CHOLECALCIF 1,250MCG (D3-50,000UNIT) CAP TAKE ONE ACTIVE CAPSULE BY MOUTH WEEKLY FOR VITAMIN D DEFICIENCY 5) CYANOCOBALAMIN 1000MCG TAB TAKE ONE TABLET BY MOUTH ACTIVE DAILY FOR VITAMIN SUPPLEMENTATION 6) DOCUSATE NA 100MG CAP TAKE ONE CAPSULE BY MOUTH TWICE ACTIVE DAILY NEEDED TO SOFTEN STOOL 7) EMPAGLIFLOZIN 25MG TAB TAKE ONE TABLET BY MOUTH ONCE ACTIVE (S) DAILY 8) FUROSEMIDE 20MG TAB TAKE ONE TABLET BY MOUTH EVERY ACTIVE (S) MORNING TO REMOVE FLUID/CONTROL BLOOD PRESSURE 9) GABAPENTIN 100MG CAP TAKE TWO CAPSULES BY MOUTH AT ACTIVE (S) BEDTIME FOR NERVE PAIN 10) INSULIN SYRINGE 0.5ML 30G 12MM USE 1 SYRINGE ACTIVE SUBCUTANEOUSLY FOUR TIMES DAILY NEEDED FOR INSULIN INJECTIONS 11) INSULIN,ASPART,HUMAN 100 UNIT/ML INJ INJECT 5 UNITS ACTIVE SUBCUTANEOUSLY EVERY MORNING NEEDED AND INJECT 3 UNITS AT NOON AND INJECT 8 UNITS EVERY EVENING BEFORE SUPPER 12) INSULIN,GLARGINE-YFGN 100UNIT/ML INJ INJECT 14 UNITS ACTIVE SUBCUTANEOUSLY ONCE DAILY 13) LISINOPRIL 10MG TAB TAKE ONE TABLET BY [...] in patient's home at time of visit. [place] identified by: Full Name, Address Length of visit in home: 30min Problem addressed for this visit: htn, dm NURSING SUMMARY: RN visit performed in 's home for assessment of chronic disease mgt, CVCP assessment, medication captain's assistant and oversight, pain mgt, skin assessment, coping and home safety. [place] is alert, oriented, pleasant. 's FEED MILL MANAGER present. Mood stable. BG range 130-200's. [place] requires reinforcement to follow ADA reccomendations. [place] does report to have sweets after dinner. Minimal activity. [place] reports to taking Novolog 5ux-3ux-6ux sc and 16ux of Semglee. Referred to Dr Mckeon note which notes that Semglee was increased to 17ux sc on Aug 25. [place] informed and verbalizes understanding. [place] also inquiring about the Vit D dosing. Vit D level 26. Vit D 3 50mcq twice a day dc'd and changed to Vit D3 weekly 50,000ux. informed of new orders. Education provided. Updated list provided in home with instructions for 's dtr n law as she fills med box. Blood Pressure: 138/64 (09/12/2023 11:00) Pulse: 70 (09/12/2023 11:00) Respiration: 16 (09/12/2023 11:00) Temperature: 97.7 F [36.5 C] (09/12/2023 11:00) Pain Score: 1 (09/12/2023 11:00)back and neck pain. Tylenol prn with relief. 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 Encouraged elevation of extr, decreasing foods high in sodium. eats alot of prepared frozen meals. HR:reg Bowel/Bladder:constipation managed with colace. Denies any urinary issues. Skin:CDI thick nail beds Home Safety safely adapted. Lives alone, children live nearby FALLS NO INFECTIONS NO ER/HOSPITALIZATIONS NO Teaching/goals: [place] has ongoing complex medical needs and benefits from [facility] interdisciplinary management. and cg are included in decision making. All questions answered, education. regarding medications, disease mgt provided. [place] and caregiver verbalize understanding. will be free from falls, infections, and hospitalizations over the next 30 days. Patient verbalizes understanding to above and will call with any concerns or changes in condition. For emergent care call 911. Plan for next visit:October 14 chronic disease mgt, education screen for covid negative /es/ Millie MEEHAN HB business applications specialist Signed: 09/12/2023 14:30 Receipt Acknowledged By: 09/13/2023 12:13 /es/ FABI MCKEON MD STAFF PHYSICIAN 10/14/2023 ADDENDUM STATUS: COMPLETED Please reassign to PACT 2 /es/ ROBERT DAVIS RN,MSN,SAW SHARPENER-C [facility] NURSE PRACTITIONER Signed: 10/14/2023 11:13 Receipt Acknowledged By: * AWAITING SIGNATURE * MONSE DUBON DAWN [place] [facility]
--- OUTSIDE RECORDS SUMMARY | 2024-07-04 16:08 | XMS_ITS | Encounter Summary ---
Author Name [place] Organization [place] Address [address] [place] [address] Care Team Providers Care Boat Master Name Role Phone ROBERT DAVIS Primary Care [...] O MEDEX BRONZ E Jun 06, 2001 [id number] [phone] OMAS PATIENT ANTHEM BCBS OF CT (BLUECARD) MEDICARE SUPPLEMEN BHARGAVI PSUED O MEDEX BRONZ E Jun 06, 2001 [id number] [place] PATIENT [place] SUPPLEMEN BHARGAVI MEDEX BRONZ E Jun 06, 2001 [id number] [place] SUPPLEMEN BHARGAVI PSUED O MEDEX BRONZ E Jun 06, 2001 [id number] HUDRACHEL BOYER OM[place] PATIENT [place] MED[place] SUPPLEMEN BHARGAVI PSUED O MEDEX BRONZ E Jun 06, 2001 [id number] [phone] HUDMERLIN,RACHEL OMAS PATIENT MEDICARE (WNR) MEDICARE (M) PART A May 07, 2001 PART A [id number] HUDOCK,RACHEL OMAS PATIENT MEDICARE (WNR) MEDICARE (M) PART B May 07, 2001 PART B [id number] ([id number] HUDOCK,RACHEL OMAS PATIENT MEDICARE (WNR) MEDICARE (M) PART A May 07, 2001 PART A [id number] ([id number] HUDOCK,RACHEL OMAS PATIENT MEDICARE (WNR) MEDICARE (M) PART B May 07, 2001 PART B [id number] HUDMERLIN,RACHEL OMAS PATIENT MEDICARE (WNR) MEDICARE (M) PART A May 07, 2001 PART A [id number] HUDRACHEL BOYER OMAS PATIENT MEDICARE (WNR) MEDICARE (M) PART B May 07, 2001 PART B [id number] HUDMERLIN,RACHEL OMAS PATIENT MEDICARE (WNR) MEDICARE (M) PART A May 07, 2001 PART A [id number] ([id number] HUDMERLIN,RACHEL OMAS PATIENT MEDICARE (WNR) MEDICARE (M) PART B May 07, 2001 PART B [id number] ([id number] HUDRACHEL BOYER OMGUANACO PATIENT Selected Encounter This section includes the information on record at [place] for the Encounter. Date/Time Encounter Type Encounter Description Reason Pro vider Source Aug 14, 2023 12:00 PM Outpatient Encounter COMMUNITY CARE CONSULT IHE [...] 20 appointments. The data comes from all [place] treatment facilities. Appointment Date/Time Appointment Type Appointme nt Facility Name Aug 28, 2023 11:00 AM AMBULATORY - MEDICINE [place] [facility] [place] [facility] November 21, 2023 08:00 AM AMBULATORY - MEDICINE [place] [facility] [place] [facility] December 04, 2023 11:00 AM AMBULATORY - MEDICINE [place] [facility] [place] [facility] Dec 23, 2023 11:00 AM AMBULATORY - MEDICINE [place] [facility] [place] [facility] Jan 21, 2024 08:00 AM AMBULATORY - MEDICINE [place] [facility] Lab Results: +/- 30 days of the encounter This section includes the Chemistry and Hematology Lab Results on record with [place] for the patient. Radiology Reports and Pathology [...] May 12, 2023 12:16 PM Reporting Lab: [address] [address] Performing Lab: [address] [address] MICROALBUMIN/C REATININE RATIO 112.4 mg/g H 0-29.9 MICROALBUMIN,Q UANTITATIVE 1.5 mg/dL RR UNAVAIL CREATININE URINE 13.35 mg/dL Aug 01, 2023 11:00 AM [facility] HEMOGLOBIN A1C PANEL Specimen Type: BLOOD [...] PM Reporting Lab: [facility] [address] [facility] [address] Performing Lab: [facility] [address] [facility] [address] HEMOGLOBIN A1C 7.3 H 4.0-5.6 Aug 01, 2023 11:00 AM [facility] LIPID PANEL FASTING Specimen Type: SERUM No comment entered. Ordering Provider: FABI MCKEON Report Released Date/Time: May 12, 2023 12:16 PM Reporting Lab: [facility] [address] [facility] [address] Performing Lab: [address] [address] CHOLESTEROL 157 mg/dL TRIGLYCERIDE 63 mg/dL 0-150 LDL calculated 65 mg/dL 0-129 CHOL/HDL 2.0 HDL CHOLESTEROL 79 mg/dL H 40-60 Aug 01, 2023 11:00 AM [facility] BASIC METABOLIC PANEL (non-fasting) Specimen Type: SERUM No comment entered. Ordering Provider: FABI MCKEON Report Released Date/Time: May 12, 2023 12:16 PM Reporting Lab: [facility] [address] [facility] [address] Performing Lab: [address] [address] UREA NITROGEN 40 mg/dL H 7-25 GLUCOSE [...] and tobacco- related health factors from the [place] facility where the Encounter took place. Current Smoking Status This section includes the most current smoking, or tobacco-related health factor, from the [place] facility where the Encounter took place. Date/Time Current Smoking Status Comment Benjy pacheco May 07, 2022 09:00 AM [facility]TOBACCO [facility] Tobacco Use History This section includes a history of the smoking, or tobacco-related health factors, that were collected on or before the date of the Encounter. The data comes from the [place] facility where the Encounter took place. Date/Time Smoking Status/Tobac co Use Comment Facility May 07, 2022 09:00 AM VA-TOBACCO QUIT 15 YRS OR MORE [place] [facility] [facility] May 21, 2021 08:00 AM VA-TOBACCO FORMER USER [place] [facility] [place] [facility] May 21, 2021 08:00 AM VA-TOBACCO QUIT 15 YRS OR MORE [facility] Apr 24, 2020 11:00 AM VA-TOBACCO FORMER USER [place] [facility] [facility] Apr 24, 2020 11:00 AM VA-TOBACCO QUIT 15 YRS OR MORE [place] [facility] [facility] Jan 15, 2018 10:57 AM QUIT TOBACCO USE > 7 YEARS AGO [place] [facility] [facility] Dec 10, 2016 08:53 AM QUIT TOBACCO USE > 7 YEARS AGO [place] [facility] [facility] Jul 19, 2015 10:22 AM QUIT TOBACCO USE > 7 YEARS AGO Quit about 40 years ago. [place] [facility] [place] [facility] November 14, 2004 10:00 AM HISTORY OF SMOKING [place] [facility] [place] [facility] November 14, 2004 10:00 AM LIFETIME NON-SMOKER [place] [facility] [place] [facility] Oct 25, 2003 10:34 AM HISTORY OF SMOKING [place] [facility] [facility] Oct 07, 2002 09:41 AM HISTORY OF SMOKING [place] [facility] [place] [facility] Nov 03, 2001 10:31 AM QUIT TOBACCO USE > 7 [facility] [place] [facility] Jul 31, 2001 02:15 PM NON-TOBACCO USER Quit 20 yrs ago [facility] Advance Directives: All historical and current Section Date Range: From patient's date of to the date document was created. This section includes ALL of a patient's completed or amended [place] Advance and Rescinded Directives. The entries below indicate that a directive exists for the patient, but an actual copy is not included with this document. The data comes from all [place] facilities. Date Advance Directives Provider Source Jul 03, 2023 ADVANCE DIRECTIVE RICHARD BAZZI [facility] Encounter Notes: All associated encounter notes This section contains the clinical notes associated to the Encounter. Date/Time Encounter Note(s) Provider Source Aug 14, 2023 12:00 PM NONVA CONSULT: LOCAL TITLE: COMMUNITY CARE-CONSULT RESULT NOTE STANDARD TITLE: NONVA CONSULT DATE OF NOTE: AUG 14, 2023@12:00 ENTRY DATE: AUG 29, 2023@11:13:53 AUTHOR: ILENE CEDILLO COSIGNER: URGENCY: STATUS: COMPLETED VistA Imaging - Scanned Document SCANNED DOCUMENT SIGNATURE NOT REQUIRED Electronically Filed: 08/29/2023 by: ILENE CEDILLO PLEATER ILENE CEDILLO [place] [facility]
--- OUTSIDE RECORDS SUMMARY | 2024-07-04 16:08 | XMS_ITS | Encounter Summary ---
Author Name [facility] [place] [facility] [place] [facility] [place] Address [address] [place] [id number] Care Team Providers Care Sales Center Associate Name Role Phone ROBERT DAVIS Primary Care [...] O MEDEX BRONZ E Jun 06, 2001 [id number] OMAS PATIENT ANTHEM BCBS OF [place] (BLUECARD) MEDICARE SUPPLEMEN BHARGAVI PSUED O MEDEX BRONZ E Jun 06, 2001 [id number] [place] PAT[place] SUPPLEMEN BHARGAVI MEDEX BRONZ E Jun 06, 2001 [id number] [place] PAT[place] SUPPLEMEN BHARGAVI PSUED O MEDEX BRONZ E Jun 06, 2001 [id number] HUDRACHEL BOYER OMAS PATIENT BCBS OF [facility] MEDICARE SUPPLEMEN BHARGAVI PSUED O MEDEX BRONZ E Jun 06, 2001 [id number] HUDOCK,TH OMAS PATIENT MEDICARE (WNR) MEDICARE (M) PART A May 07, 2001 PART A [id number] HUDOCK,RACHEL OMAS PATIENT MEDICARE (WNR) MEDICARE (M) PART B May 07, 2001 PART B [id number] ([id number] HUDOCK,RACHEL OMAS PATIENT MEDICARE (WNR) MEDICARE (M) PART A May 07, 2001 PART A [id number] ([id number] HUDOCK,RACHEL OMAS PATIENT MEDICARE (WNR) MEDICARE (M) PART A May 07, 2001 PART A [id number] HUDOCK,RACHEL OMAS PATIENT MEDICARE (WNR) MEDICARE () PART B May 07, 2001 PART B [id number] HUDOCK,RACHEL OMAS PATIENT MEDICARE (WNR) MEDICARE (M) PART B May 07, 2001 PART B [id number] ([id number] HUDOCK,RACHEL OMAS PATIENT MEDICARE (WNR) MEDICARE (M) PART A May 07, 2001 PART A [id number] HUDOCK,RACHEL OMAS PATIENT MEDICARE (WNR) MEDICARE () PART B May 07, 2001 PART B [id number] HUDMERLIN,RACHEL OMAS PATIENT Selected Encounter This section includes the information on record at [place] for the Encounter. Date/Time Encounter Type Encounter Description Reason Provider Source Aug 28, 2023 11:31 AM CONT GLUC MNTR PHYS/QHP EQP GENERAL INTERNAL MEDICINE ICD-10-CM E11.9 Type 2 diabetes mellitus without complications JULIANNE RODRIGUEZ IHMallory Encounter Template Text not used by [place] Assessments - Encounter Diagnoses This section includes the primary and secondary diagnoses documented for the Encounter. Date/Time Primary/Secondary Diagnosis Diagnosis Name Provider Source Aug 28, 2023 11:31 AM PRIMARY Type 2 diabetes mellitus without complications JULIANNE RODRIGUEZ [facility] Plan of Treatment: Future Appointments (+ 6 months) and Future Tests (+/- 45 days) The Plan of Treatment section includes future care activities for the patient from all [place] treatmentfacilities. This section includes future appointments and future orders which are active, pending or scheduled. Future Appointments This section includes appointments that were scheduled to occur 6 months from the date of the Encounter, up to a maximum of 20 appointments. The data comes from all [place] treatment facilities. Appointment Date/Time Appointment Type Appointme nt Facility Name November 21, 2023 08:00 AM [facility] December 04, 2023 11:00 AM [facility] Dec 23, 2023 11:00 AM [facility] Jan 21, 2024 08:00 AM AMBULATORY MEDICINE [facility] Lab Results: +/- 30 days of the encounter This section includes the Chemistry and Hematology Lab Results on record with [place] for the patient. Radiology Reports and Pathology Reports are provided separately, in subsequent sections. Lab Results This section contains the Chemistry/Hematology Results that were resulted 30 days before or 30 daysafter the date of the Encounter. Date/Time Source Result Type Result - Unit Interpretation Reference Range Comment Aug 15, 2023 11:00 AM [facility] MICROALBUMIN CREATININE RATIO PANEL Specimen Type: URINE No comment entered. Ordering Provider: FABI MCKEON Report Released Date/Time: May 12, 2023 12:16 PM Reporting Lab: [facility] [address] [facility] [address] Performing Lab: [facility] [address] [facility] [address] MICROALBUMIN/C REATININE RATIO 112.4 mg/g H 0-29.9 MICROALBUMIN,Q UANTITATIVE 1.5 mg/dL RR UNAVAIL CREATININE URINE 13.35 mg/dL Aug 01, 2023 11:00 AM [facility] LIPID PANEL FASTING Specimen Type: SERUM No comment entered. Ordering Provider: FABI MCKEON Report Released Date/Time: May 12, 2023 12:16 PM Reporting Lab: [facility] [address] [facility] [address] Performing Lab: [address] [address] CHOLESTEROL 157 mg/dL TRIGLYCERIDE 63 mg/dL 0-150 LDL calculated 65 mg/dL 0-129 CHOL/HDL 2.0 HDL CHOLESTEROL 79 mg/dL H 40-60 Aug 01, 2023 11:00 AM [facility] HEMOGLOBIN A1C PANEL Specimen Type: BLOOD [...] May 12, 2023 12:16 PM Reporting Lab: [address] [address] Performing Lab: [address] [address] HEMOGLOBIN A1C 7.3 H 4.0-5.6 Aug 01, 2023 11:00 AM [facility] BASIC METABOLIC PANEL (non-fasting) Specimen Type: SERUM No comment entered. Ordering Provider: FABI MCKEON Report Released Date/Time: May 12, 2023 12:16 PM Reporting Lab: [address] [address] Performing Lab: [address] [address] UREA NITROGEN 40 mg/dL H 7-25 GLUCOSE [...] 131/50 16 97 4 69 148 22 [facility] Social History: Smoking Status (Most current) and Tobacco Use (All prior to encounter date) This section includes the most current, and the historical, smoking and tobacco- related health factors from the [facility] facility where the Encounter took place. Current Smoking Status This section includes the most current smoking, or tobacco-related health factor, from the [place] facility where the Encounter took place. Date/Time Current Smoking Status Comment [facility] May 07, 2022 09:00 AM [facility]ACCO [facility] Tobacco Use History This section includes a history of the smoking, or tobacco-related health factors, that were collected on or before the date of the Encounter. The data comes from the [facility] facility where the Encounter took place. Date/Time Smoking Status/Tobac co Use Comment Facility May 07, 2022 09:00 AM VA-TOBACCO QUIT 15 YRS OR MORE [facility] May 21, 2021 08:00 AM VA-TOBACCO FOR[facility]ER [facility] May 21, 2021 08:00 AM VA-TOBACCO QUIT 15 YRS OR MORE [facility] [place] [facility] Apr 24, 2020 11:00 AM VA-TOBACCO FORMER USER [facility] [place] [facility] Apr 24, 2020 11:00 AM VA-TOBACCO QUIT 15 YRS OR MORE [facility] [place] [facility] Jan 15, 2018 10:57 AM QUIT TOBACCO USE > 7 YEARS AGO [facility] [place] [facility] Dec 10, 2016 08:53 AM QUIT TOBACCO USE > 7 YEARS AGO [facility] [place] [facility] Jul 19, 2015 10:22 AM QUIT TOBACCO USE > 7 YEARS AGO Quit about 40 years ago. [facility] [place] [facility] November 14, 2004 10:00 AM HISTORY OF SMOKING [facility] [place] [facility] November 14, 2004 10:00 AM LIFETIME NON-SMOKER [facility] Oct 25, 2003 10:34 AM HISTORY OF SMOKING [facility] Oct 07, 2002 09:41 AM HISTORY OF SMOKING [facility] Nov 03, 2001 10:31 AM QUIT TOBACCO USE > 7 YEARS AGO [facility] Jul 31, 2001 02:15 PM NON-TOBACCO USER Quit 20 yrs ago [facility] Advance Directives: All historical and current Section Date Range: From patient's date of to the date document was created. This section includes ALL of a patient's completed or amended [place] Advance and Rescinded Directives. The entries below indicate that a directive exists for the patient, but an actual copy is not included with this document. The data comes from all [place] facilities. Date Advance Directives Provider Source Jul 03, 2023 ADVANCE DIRECTIVE RICHARD BAZZI [facility] Encounter Notes: All associated encounter notes This section contains the clinical notes associated to the Encounter. Date/Time Encounter Note(s) Provider Source Aug 28, 2023 11:31 AM DIABETOLOGY NOTE: LOCAL TITLE: GLUCOSE PATIENT METER DATA STANDARD TITLE: DIABETOLOGY NOTE DATE OF NOTE: AUG 28, 2023@11:31 ENTRY DATE: AUG 28, 2023@11:31:34 AUTHOR: JULIANNE RODRIGUEZ COSIGNER: URGENCY: STATUS: COMPLETED Name: GONZALO VEGA : 1935 ID: [id number] Information from [facility] on 08/28/2023 Patient Name: GONZALO VEGA Date Range: 08/13/2023 - 08/26/2023 bG values are displayed in mg/dL # of tests 40 Average 192 SD 43.2 Highest 265 Lowest 106 Avg tests/day 2.9 # HI 0 # LO 0 <80 0.0% 80-130 5.0% >130 95.0% Hypos(<70) 0 Date Range: 08/13/2023 - 08/26/2023 bG values are displayed in mg/dL 00:00- 05:30- 08:00- 11:00- 12:30- 17:00- 18:30- :30- 05:30 08:00 11:00 12:30 17:00 18:30 21:30 00:00 08/13/2023 152 134 134 183 Erika 08/14/2023 249 08/15/2023 240 195 223 259 08/16/2023 237 08/17/2023 201 153 221 08/18/2023 176 191 168 194 08/19/2023 204 08/20/2023 240 165 248 Erika 08/21/2023 218 167 131 140 08/22/2023 248 232 172 08/23/2023 233 168 08/24/2023 188 260 129 106 08/25/2023 170 182 149 08/26/2023 205 139 265 Date Range: 08/13/2023 - 08/26/2023 bG values are displayed in mg/dL 00:00- 05:30- 08:00- 11:00- 12:30- 17:00- 18:30- :30- 05:30 08:00 11:00 12:30 17:00 18:30 21:30 00:00 # of tests 0 0 13 6 8 4 9 0 Average 0 0 212 184 172 186 188 0 SD 32.6 42.5 52.1 33.6 49.3 Hi/Lo 0 0 0 0 0 0 0 0 Date Range: 08/13/2023 - 08/26/2023 bG values are displayed in mg/dL 08/13/2023 9:03 AM 152 12:00 PM 134 4:31 PM 134 8:05 PM 183 08/14/2023 8:05 AM 249 08/15/2023 8:45 AM 240 12:27 PM 195 5:06 PM 223 7:55 PM 259 08/16/2023 8:52 AM 237 08/17/2023 9:14 AM 201 12:45 PM 153 7:59 PM 221 08/18/2023 9:43 AM 176 12:49 PM 191 5:29 PM 168 8:14 PM 194 08/19/2023 5:00 PM 204 08/20/2023 9:29 AM 240 11:35 AM 165 8:01 PM 248 08/21/2023 8:43 AM 218 11:57 AM 167 4:56 PM 131 8:14 PM 140 08/22/2023 8:34 AM 248 12:47 PM 232 7:55 PM 172 08/23/2023 8:59 AM 233 7:33 PM 168 08/24/2023 9:05 AM 188 11:44 AM 260 4:58 PM 129 8:20 PM 106 08/25/2023 8:46 AM 170 11:43 AM 182 5:04 PM 149 08/26/2023 8:53 AM 205 12:45 PM 139 4:36 PM 265 End of information from [facility] /genoveva/ JULIANNE RODRIGUEZ RN Signed: 08/28/2023 11:32 JULIANNE RODRIGUEZ [facility] [place] [facility]
--- OUTSIDE RECORDS SUMMARY | 2024-07-04 16:08 | XMS_ITS | Encounter Summary ---
Author Name [facility] [place] Organization [facility] [place] Address [address] [place] [address] Care Team Providers Care Design Lead Name Role Phone ROBERT DAVIS Primary Care [...] O MEDEX BRONZ E Jun 06, 2001 [id number] OMAS PATIENT ANTHEM BCBS OF CT (BLUECARD) MEDICARE SUPPLEMEN BHARGAVI PSUED O MEDEX BRONZ E Jun 06, 2001 [id number] OMAS PATIENT BCBS [place] MEDICARE SUPPLEMEN BHARGAVI MEDEX BRONZ E Jun 06, 2001 [id number] OM[place] PATIENT [place] MED[place] SUPPLEMEN BHARGAVI PSUED O MEDEX BRONZ E Jun 06, 2001 [id number] [phone] HUDRACHEL BOYER OMAS PATIENT BCBS OF [facility] MEDICARE SUPPLEMEN BHARGAVI PSUED O MEDEX BRONZ E Jun 06, 2001 [id number] HUDMERLIN,RACHEL OMAS PATIENT MEDICARE (WNR) MEDICARE (M) PART A May 07, 2001 PART A [id number] HUDOCK,RACHEL OMAS PATIENT MEDICARE (WNR) MEDICARE (M) PART B May 07, 2001 PART B [id number] ([id number] HUDOCK,RACHEL OMAS PATIENT MEDICARE (WNR) MEDICARE (M) PART A May 07, 2001 PART A [id number] ([id number] HUDOCK,RACHEL OMAS PATIENT MEDICARE (WNR) MEDICARE (M) PART B May 07, 2001 PART B [id number] RACHEL RIOS OMAS PATIENT MEDICARE (WNR) MEDICARE (M) PART A May 07, 2001 PART A [id number] HUDRACHEL BOYER OMAS PATIENT MEDICARE (WNR) MEDICARE (M) PART B May 07, 2001 PART B [id number] HUDMERLIN,RACHEL OMAS PATIENT MEDICARE (WNR) MEDICARE (M) PART A May 07, 2001 PART A [id number] HUDMERLIN,RACHEL OMAS PATIENT MEDICARE (WNR) MEDICARE (M) PART B May 07, 2001 PART B [id number] ([id number] HUDRACHEL BOYER OMAS PATIENT Selected Encounter This section includes the information on record at [place] for the Encounter. 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 Date/Time Primary/Secondary Diagnosis Diagnosis Name Provider Source Aug 29, 2023 07:33 PM PRIMARY Other senior care (current) drug therapy PADMA URIBE [facility] Plan of Treatment: Future Appointments (+ 6 months) and Future Tests (+/- 45 days) The Plan of Treatment section includes future care activities for the patient [facility] This section includes future appointments and future orders which are active, pending or scheduled. Future Appointments This section includes appointments that were scheduled to occur 6 months from the date of the Encounter, up to a maximum of 20 appointments. The data comes from all [place] treatment facilities. Appointment Date/Time Appointment Type Appointme nt Facility Name November 21, 2023 08:00 AM AMBULATORY MEDICINE [facility] December 04, 2023 11:00 AM AMBULATORY MEDICINE [facility] Dec 23, 2023 11:00 AM AMBULATORY MEDICINE [facility] Jan 21, 2024 08:00 AM AMBULATORY MEDICINE [facility] Lab Results: +/- 30 days of the encounter This section includes the Chemistry and Hematology Lab Results on record with [place] for the patient. Radiology Reports and Pathology Reports are provided separately, in subsequent sections. Lab Results This section contains the Chemistry/Hematology Results that were resulted 30 days before or 30 daysafter the date of the Encounter. Date/Time Source Result Type Result - Unit Interpretation Reference Range Comment Aug 15, 2023 11:00 AM [facility] MICROALBUMIN CREATININE RATIO PANEL Specimen Type: URINE No comment entered. Ordering Provider: FABI MCKEON Report Released Date/Time: May 12, 2023 12:16 PM Reporting Lab: [facility] [address] [address] Performing Lab: [facility] [address] [address] MICROALBUMIN/C REATININE RATIO 112.4 mg/g H 0-29.9 MICROALBUMIN,Q UANTITATIVE 1.5 mg/dL RR UNAVAIL CREATININE URINE 13.35 mg/dL Aug 01, 2023 11:00 AM [facility] [...] May 12, 2023 12:16 PM Reporting Lab: [facility] [address] [facility] [address] Performing Lab: [address] [address] HEMOGLOBIN A1C 7.3 H 4.0-5.6 Aug 01, 2023 11:00 AM [facility] LIPID PANEL FASTING Specimen Type: SERUM No comment entered. Ordering Provider: FABI MCKEON Report Released Date/Time: May 12, 2023 12:16 PM Reporting Lab: [address] [address] Performing Lab: [facility] [address] [facility] [address] CHOLESTEROL 157 mg/dL TRIGLYCERIDE 63 mg/dL 0-150 LDL calculated 65 mg/dL 0-129 CHOL/HDL 2.0 HDL CHOLESTEROL 79 mg/dL H 40-60 Aug 01, 2023 11:00 AM [facility] BASIC METABOLIC PANEL (non-fasting) Specimen Type: SERUM No comment entered. Ordering Provider: FABI MCKEON Report Released Date/Time: May 12, 2023 12:16 PM Reporting Lab: [facility] [address] [facility] [address] Performing Lab: [address] [address] UREA NITROGEN 40 mg/dL H 7-25 GLUCOSE 119 mg/dL H 65-100 SODIUM 134 mmol/L L 135-145 POTASSIUM 4.1 mmol/L 3.5-5.0 CHLORIDE 97 mmol/L L 100-110 CO2 28 meq/L 20-30 CREATININE, Serum 1.21 mg/dL 0.50-1.40 eGFR(CKD-EPI 2021) 58 mL/min L >60 Social History: Smoking Status (Most current) and Tobacco Use (All prior to encounter date) This section includes the most current, and the historical, smoking and tobacco- related health factors from the [place] facility where the Encounter took place. Current Smoking Status This section includes the most current smoking, or tobacco-related health factor, from the [place] facility where the Encounter took place. Date/Time Current Smoking Status Comment [facility] it May 07, 2022 09:00 AM VA-TOBACCO FORMER USER [facility] [place] [facility] Tobacco Use History This section includes a history of the smoking, or tobacco-related health factors, that were collected on or before the date of the Encounter. The data comes from the [place] facility where the Encounter took place. Date/Time Smoking Status/Tobac co Use Comment Facility May 07, 2022 09:00 AM VA-TOBACCO QUIT 15 YRS OR MORE [facility] [place] [facility] May 21, 2021 08:00 AM VA-TOBACCO FORMER USER [facility] [place] [facility] May 21, 2021 08:00 AM VA-TOBACCO QUIT 15 YRS OR MORE [facility] [place] [facility] Apr 24, 2020 11:00 AM VA-TOBACCO FORMER USER [facility] [place] [facility] Apr 24, 2020 11:00 AM VA-TOBACCO QUIT 15 YRS OR MORE [facility] [place] [facility] Jan 15, 2018 10:57 AM QUIT TOBACCO USE > 7 YEARS AGO [facility] [place] [facility] Dec 10, 2016 08:53 AM QUIT TOBACCO USE > 7 YEARS AGO [facility] [place] [facility] Jul 19, 2015 10:22 AM QUIT TOBACCO USE > 7 YEARS AGO Quit about 40 years ago. [facility] [place] [facility] November 14, 2004 10:00 AM HISTORY OF SMOKING [facility] [place] [facility] November 14, 2004 10:00 AM LIFETIME NON-SMOKER [facility] [place] [facility] Oct 25, 2003 10:34 AM HISTORY OF SMOKING [facility] [place] [facility] Oct 07, 2002 09:41 AM HISTORY OF SMOKING [facility] [place] [facility] Nov 03, 2001 10:31 AM QUIT TOBACCO USE > 7 YEARS AGO [facility] Jul 31, 2001 02:15 PM NON-TOBACCO USER Quit 20 yrs ago [facility] Advance Directives: All historical and current Section Date Range: From patient's date of to the date document was created. This section includes ALL of a patient's completed or amended [place] Advance and Rescinded Directives. The entries below indicate that a directive exists for the patient, but an actual copy is not included with this document. The data comes from all [place] facilities. Date Advance Directives Provider Source Jul 03, 2023 ADVANCE DIRECTIVE RICHARD BAZZI [facility] Encounter Notes: All associated encounter notes This section contains the clinical notes associated to the Encounter. Date/Time Encounter Note(s) Provider Source Aug 29, 2023 05:50 PM [facility] MEDICATION MG T NOTE: LOCAL TITLE: [facility] PHARMACY MEDICATION REVIEW STANDARD TITLE: [facility] MEDICATION MGT NOTE DATE OF NOTE: AUG 29, 2023@17:50 ENTRY DATE: AUG 29, 2023@17:50:50 AUTHOR: PADMA URIBE COSIGNER: URGENCY: STATUS: COMPLETED [facility] PHARMACY MEDICATION REVIEW Has ADDENDA Gonzalo Rios is an 88 year-old WHITE MALE. PMH (per problem list): CKD, peripheral neuropathy d/t T2DM, diabetic retinopathy, CAD, OA, elevated PSA, anemia, vit B12 deficiency, EtOH dependence, back pain, HLD, HTN, T2DM, HF Alcohol (+): 1-2 drinks over 4 times weekly Tobacco (-): quit over 15 years ago Allergies/ADR: LISINOPRIL (hyperkalemia) Active Outpatient Medications Status 1) AMMONIUM LACTATE [...] TWICE ACTIVE DAILY NEEDED TO SOFTEN STOOL * NEW 7) EMPAGLIFLOZIN 25MG TAB TAKE ONE TABLET [...] INJECT 8 UNITS EVERY EVENING BEFORE SUPPER * 5/3/6 units per last Endo visit (08/25/23) 12) INSULIN,GLARGINE-YFGN 100UNIT/ML INJ INJECT 14 UNITS ACTIVE SUBCUTANEOUSLY ONCE DAILY * increased to 17 units during last Endo visit (08/25/23) 13) LISINOPRIL 10MG TAB TAKE ONE TABLET BY MOUTH ONCE ACTIVE DAILY FOR HIGH BLOOD PRESSURE TO CONTROL BLOOD PRESSURE * DOSE INCREASE from 5mg daily 14) NUTR SUPL GLUCERNA THER NUTR SHAKE [...] 28 MG? BY MOUTH ONCE DAILY ACTIVE THE ABOVE MEDICATIONS WERE REVIEWED FOR: ADR, potential incompatibilities, compliance, duplication of therapy, and indications on problem list Other Rx/OTC/Herbals: none identified High Alert Meds: insulin aspart, insulin glargine, empagliflozin Look Alike/Sound Alike Meds: insulin aspart AND insulin glargine, acetaminophen, Neurontin Duplication of Therapy: none Excessive Duration: ?multivitamin, ?cyanocobalamin Vitals: ======= Ht: 69 in [175.3 cm] (08/28/2023 11:15) Wt: 148 lb [67.13 kg] (08/28/2023 11:15) BMI: 21.9 BP: 131/50 (08/28/2023 11:15) HR: 72 (08/28/2023 11:15) Pain: 4 (08/28/2023 11:15) Labs: ===== SERUM Na K BUN SCr 08/01/23 134 L 4.1 40 H 1.21 05/07/23 130 L 4.2 42 H 1.16 eGFR (CKD-EPI 2020): 58 L (08/01/23) CrCl (C&G, SCr 1.21, ideal BW): ~41 mL/min SERUM AST ALT 01/28/23 18 16 BLOOD WBC Hgb Hct MCV Plt 10/21/22 3.27 L 10.4 L 31.2 L 101 114 L A1c: 7.3 % (08/01/23) *not entirely accurate given anemia 7 % (05/07/23) TSH: 2.25 uIU/mL (04/19/20) Vit B12: 1100 H pg/mL (10/21/22) Folate: 14.11 ng/mL (05/12/19) Tsat: 29.3% (10/21/22) Ferritin: 227 ng/mL (10/21/22) SERUM LDL HDL TG Tot Chol 08/01/23 65 79 H 63 157 Vit D: 26 ng/mL (06/02/23) 16 L ng/mL (10/21/22) Ca: 8.9 mg/dL (10/21/22) Alb: 3.8 g/dL (01/28/23) ASSESSMENT: In the last 90 days - No falls/hospitalizations/infe ctions noted - Per the 08/13/23 HB SCREEN ROLLER note, 's lisinopril was recommended to be increased from 5mg to 10mg daily by non-VA provider. [facility] SCREEN ROLLER updated his pill box to implement dosing change. - Per the 08/25/23 Endo visit, 's insulin glargine was increased from 14 to 17 units daily and his insulin aspart was changed from 5/3/8 to 5/3/6 units with meals. INTERVENTIONS/SUGGESTIONS: 1. Patient's medications were reviewed for significant drug interactions. * furosemide/lisinopril: concurrent use may increase risks of hypotension and nephrotoxicity * insulin aspart/insulin glargine/empagliflozin: may increase risk of hypoglycemia; continue to encourage SMBG 2. Patient has reduced renal function with an estimated creatinine clearance of ~41 mL/min, therefore at risk of accumulation of renally cleared drugs. LFTs WNL. Current medications are dosed appropriately for the patient's renal and hepatic function. 3. Medications reviewed to determine if regimen could contribute to falls. Several agents on 's active medication list may increase fall risk including atorvastatin, chlorthalidone, empagliflozin, furosemide, gabapentin, insulin, and lisinopril. Also, aspirin use may increase bleeding risk should a fall occur. Southold has a hx of falls with no documented falls in the past year. To reduce the risk for falls, educate pt re: safe postural transitions and signs/sx of orthostatic hypotension. Also, monitor for dizziness, drowsiness, hypotension, dehydration, hypoglycemia, increased urination, and muscle pain/weakness given current medication regimen. Educate pt re: need to have blood glucose monitored for signs/sx of confusion, diaphoresis, and/or dizziness with use of insulin. 4. All medical conditions have appropriate medication treatment. * T2DM - last A1c 7.3% on insulin glargine, insulin aspart, and SGLT2 inhibitor, has a hx of neuropathy (last Podiatry visit 08/05/23), retinopathy (last Optometry visit 06/19/23), and CKD * HTN - on CORNELL-i, loop diuretic, and thiazide diuretic; lisinopril recently increased from 5mg to 10mg daily, will need to monitor closely for hyperkalemia given documented ADR, has had a recent hx of hyponatremia although Na uptrending (130 --> 134), concern for dehydration given high BUN/SCr ratio of ~33, will order repeat uric acid given diuretic regimen * HF - on CORNELL-i and SGLT2 inhibitor, no beta viji or mineralocorticoid receptor antagonist, hx of low HRs and hyperkalemia 5. All medications have an appropriate indication and supporting clinical symptoms. * cyanocobalamin - last vit B12 elevated, remote hx of low vit B12 in 2009 * multivitamin - no clear indication * gabapentin - hx of peripheral neuropathy in the setting of DM * atorvastatin - on high-intensity statin, hx of HLD and ASCVD, last LDL 65 and LFTs WNL 6. Adherence Concerns: - pill organizer prefilled by [id number] * Glucerna - last filled 08/01/23, 06/03/23 (24-day supply) * cyanocobalamin - last filled last filled 04/18/23, 90-day supply * cholecalciferol - last filled 04/18/23, 100-day supply 7. Health Maintenance: > Immunizations: is due for the following immunizations per chart review and CDC recommendations: * COVID-19 - pt refusal in May 2023 * Tdap * RSV * PCV20 (shared decision making) > Tobacco/EtOH: * Please continue to periodically assess alcohol use and encourage gradual reduction in intake given older age, fall risk, and concern for withdrawal sx with abrupt discontinuation > Bladder/Bowel: * Inquire about incontinence and severity biannually. > Bone Health: * vit D remains low on vit D supplementation, will recommend 1250 mcg once weekly for correction of deficiency * last Ca WNL, not on supplementation > Aspirin: * currently takes low-dose aspirin, hx of ASCVD 8. Southold has at least 1 refill remaining on all chronic [facility] Rxs. 9. Continue to review quarterly. Recommendations: - Southold's last vit D level remains low despite daily supplementation. Recommend discontinuation of daily cholecalciferol Rx at this time with initiation of cholecalciferol 1250 mcg (50,000 units) once weekly with a repeat level in 2-3 months to ensure correction of deficiency. - Southold is taking OTC iron supplementation, but it is unclear what type or the dosing. Please take a picture of the bottle/ingredients for this travel writer and clarify how he has been taking to allow for clear documentation in the non-VA med list and assessment of appropriateness. - Please assess 's willingness to receive the RSV vaccine during next scheduled visit. * This travel writer to add TSH and uric acid levels to 's existing lab orders to coordinate with Endocrine labwork. The details of this review were shared with the IDT in order to assist in creating a care plan designed to provide services focused on the health and well being of the patient. Time Spent: 90 min /genoveva/ PADMA URIBE [facility] Clinical Pharmacist Practitioner Signed: 08/29/2023 19:35 Receipt Acknowledged By: 09/01/2023 09:17 /genoveva/ MARQUES JEFFERY [facility] NURSE PRACTITIONER 09/02/2023 11:59 /genoveva/ Millie DUENASN [facility] credit analysis manager 09/01/2023 ADDENDUM STATUS: COMPLETED changed from daily vit D to weekly high dose. Millie- can you please let his daughter in law know this plan? thanks. Will add repeat check to labs due in November. /genoveva/ MARQUES JEFFERY [facility] NURSE PRACTITIONER Signed: 09/01/2023 09:18 PADMA URIBE [facility]
--- OUTSIDE RECORDS SUMMARY | 2024-07-04 16:09 | XMS_ITS ---
Author Name [facility] [place] Organization [facility] [place] Address [address] [place] [address] Care Team Providers Care Emissions Repair Technician Name Role Phone ROBERT DAVIS Primary Care Provider Unav ailable RICHARD BAZZI Unavailable Unavailable CASSANDRA FERRELL Unavailable Unavailable KELSEA JO Unavailable Unavailable MONSE DUBON Unavailable Unavailable MILLIE DAVENPORT Unavailable Unavailable DARSHAN OLIVERA Unavailable Unavailable СЕРГЕЙ, CLOTILDE Unavailable Unavailable PADMA URIBE Unavailable Unavailable Insurance [...] O MEDEX BRONZ E Jun 06, 2001 [id number] [phone] OMAS PATIENT ANTHEM BCBS OF [place] (BLUECARD) MEDICARE SUPPLEMEN BHARGAVI PSUED O MEDEX BRONZ E Jun 06, 2001 [id number] [place] PAT[place] SUPPLEMEN BHARGAVI MEDEX BRONZ E Jun 06, 2001 [id number] [place] BHARGAVI PSUED O MEDEX BRONZ E Jun 06, 2001 [id number] [phone] HUDRACHEL BOYER OM[place] PATIENT [place] SUPPLEMEN BHARGAVI PSUED O MEDEX BRONZ E Jun 06, 2001 [id number] HUDOCK,RACHEL OMAS PATIENT MEDICARE (WNR) MEDICARE (M) PART A May 07, 2001 PART A [id number] HUDOCK,RACHEL OMAS PATIENT MEDICARE (WNR) MEDICARE (M) PART B May 07, 2001 PART B [id number] ([id number] HUDOCK,RACHEL OMAS PATIENT MEDICARE (WNR) MEDICARE (M) PART A May 07, 2001 PART A [id number] ([id number] HUDOCK,RACHEL OMAS PATIENT MEDICARE (WNR) MEDICARE (M) PART B May 07, 2001 PART B [id number] ([id number] HUDMERLIN,RACHEL OMAS PATIENT MEDICARE (WNR) MEDICARE () PART A May 07, 2001 PART A [id number] HUDMERLIN,RACHEL OMAS PATIENT MEDICARE (WNR) MEDICARE (M) PART B May 07, 2001 PART B [id number] HUDMERLIN,RACHEL OMAS PATIENT MEDICARE (WNR) MEDICARE (M) PART A May 07, 2001 PART A [id number] ([id number] HUDMERLIN,RACHEL OMAS PATIENT MEDICARE (WNR) MEDICARE (M) PART B May 07, 2001 PART B [id number] ([id number] HUDRACHEL BOYER OMAS PATIENT Selected Encounter This section includes the information on record at [place] for the Encounter. 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 [facility]IE [facility]PORT [facility] [place] [facility] November 19, 2023 02:19 PM SECONDARY Type 2 diabetes mellitus with diabetic polyneuropathy MILLIE DAVENPORT [facility] November 19, 2023 02:19 PM SECONDARY Vitamin B12 deficiency anemia, unspecified MILLIE DAVENPORT [facility] Plan of Treatment: Future Appointments (+ 6 months) and Future Tests (+/- 45 days) The Plan of Treatment section includes future care activities for the patient [facility] [place] [facility] This section includes future appointments and future orders which are active, pending or scheduled. Future Appointments This section includes appointments that were scheduled to occur 6 months from the date of the Encounter, up to a maximum of 20 appointments. The data comes from all [place] treatment facilities. Appointment Date/Time Appointment Type Appointme nt Facility Name November 21, 2023 08:00 AM AMBULATORY MEDICINE [facility] December 04, 2023 11:00 AM AMBULATORY MEDICINE [facility] [place] [facility] Dec 23, 2023 11:00 AM AMBULATORY MEDICINE [facility] [place] [facility] Jan 21, 2024 08:00 AM [facility] MEDICINE [facility] [place] [facility] May 08, 2024 08:00 AM [facility]UL[facility]ORY [facility] Lab Results: +/- 30 days of the encounter This section includes the Chemistry and Hematology Lab Results on record with [place] for the patient. Radiology Reports and Pathology Reports are provided separately, in subsequent sections. Lab Results This section contains the Chemistry/Hematology Results that were resulted 30 days before or 30 daysafter the date of the Encounter. Date/Time Source Result Type Result - Unit Interpretation Reference Range Comment November 19, 2023 10:00 AM [facility] HEMOGLOBIN A1C PANEL Specimen Type: BLOOD Comment: Values obtained from A1C measurements can vary. For atypical A1C assays, a reported value of 7.0 could actually be between 6.72 and 7.28 if measured by a reference method. A reported value of 9.0 could actually be between 8.73 and 9.27. Ref: http://www.ngs p.org/CAPdata. asp Ordering Provider: FABI MCKEON Report Released Date/Time: Aug 25, 2023 07:46 AM Reporting Lab: [facility] [address] [facility] [address] Performing Lab: [address] [address] HEMOGLOBIN A1C 6.8 H 4.0-5.6 November 19, 2023 10:00 AM [facility] TSH Specimen Type: SERUM No comment entered. Ordering Provider: PADMA URIBE Report Released Date/Time: Aug 29, 2023 07:37 PM Reporting Lab: [address] [address] Performing Lab: [address] [address] TSH 2.60 u[IU]/mL 0.35-5.00 November 19, 2023 10:00 AM [facility] URIC ACID Specimen Type: SERUM No comment entered. Ordering Provider: PADMA URIBE Report Released Date/Time: Aug 29, 2023 07:37 PM Reporting Lab: [address] [address] Performing Lab: [address] [address] URIC ACID 9.2 mg/dL H 3.5-7.2 November 19, 2023 10:00 AM [facility] BASIC METABOLIC PANEL (non-fasting) Specimen Type: SERUM No comment entered. Ordering Provider: FABI MCKEON Report Released Date/Time: Aug 25, 2023 07:46 AM Reporting Lab: [address] [address] Performing Lab: [address] [address] UREA NITROGEN 45 mg/dL H 7-25 GLUCOSE 206 mg/dL H 65-100 SODIUM 138 mmol/L 135-145 POTASSIUM 4.8 mmol/L 3.5-5.0 CHLORIDE 104 mmol/L 100-110 CO2 26 meq/L 20-30 CREATININE, Serum 1.41 mg/dL H 0.50-1.40 eGFR(CKD-EPI 2020) 48 mL/min L >60 Vital Signs: All taken on the encounter date This section contains inpatient and outpatient Vital Signs collected on the date of the Encounter. Date/Time Temperature Pulse Blood Pressure Respiratory Rate SP02 Pain Height Weight Body Mass Index Source November 19, 2023 10:00 AM 97.8 70 118/72 18 100 5 148 22 [place] [facility] [place] [facility] Social History: Smoking Status (Most current) and Tobacco Use (All prior to encounter date) This section includes the most current, and the historical, smoking and tobacco- related health factors from the [place] facility where the Encounter took place. Current Smoking Status This section includes the most current smoking, or tobacco-related health factor, from the [place] facility where the Encounter took place. Date/Time Current Smoking Status Comment [facility] it November 17, 2023 08:31 AM VA-TOBACCO [facility] Tobacco Use History This section includes a history of the smoking, or tobacco-related health factors, that were collected on or before the date of the Encounter. The data comes from the [place] facility where the Encounter took place. Date/Time Smoking Status/Tobac co Use Comment Facility November 17, 2023 08:31 AM VA-TOBACCO QUIT 15 YRS OR MORE [place] [facility] May 07, 2022 09:00 AM VA-TOBACCO FORMER USER [place] [facility] May 07, 2022 09:00 AM VA-TOBACCO QUIT 15 YRS OR MORE [place] [facility] May 21, 2021 08:00 AM VA-TOBACCO FORMER USER [place] [facility] May 21, 2021 08:00 AM VA-TOBACCO QUIT 15 YRS OR MORE [place] [facility] Apr 24, 2020 11:00 AM VA-TOBACCO FORMER USER [place] [facility] Apr 24, 2020 11:00 AM VA-TOBACCO QUIT 15 YRS OR MORE [place] [facility] Jan 15, 2018 10:57 AM QUIT TOBACCO USE > 7 YEARS AGO [facility] Dec 10, 2016 08:53 AM QUIT TOBACCO USE > 7 YEARS AGO [facility] Jul 19, 2015 10:22 AM QUIT TOBACCO USE > 7 YEARS AGO Quit about 40 years ago. [facility] November 14, 2004 10:00 AM HISTORY OF SMOKING [facility] November 14, 2004 10:00 AM LIFETIME NON-SMOKER [facility] Oct 25, 2003 10:34 AM HISTORY OF SMOKING [facility] Oct 07, 2002 09:41 AM HISTORY OF SMOKING [facility] Nov 03, 2001 10:31 AM QUIT TOBACCO USE > 7 YEARS AGO [facility] Jul 31, 2001 02:15 PM NON-TOBACCO USER Quit 20 yrs ago [facility] Advance Directives: All historical and current Section Date Range: From patient's date of to the date document was created. This section includes ALL of a patient's completed or amended [place] Advance and Rescinded Directives. The entries below indicate that a directive exists for the patient, but an actual copy is not included with this document. The data comes from all [place] facilities. Date Advance Directives Provider Source Jul 03, 2023 ADVANCE DIRECTIVE RICHARD BAZZI [facility] Encounter Notes: All associated encounter notes This section contains the clinical notes associated to the Encounter. Date/Time Encounter Note(s) Provider Source November 19, 2023 02:27 PM ADDENDUM: LOCAL TITLE: Addendum STANDARD TITLE: ADDENDUM DATE OF NOTE: NOVEMBER 19, 2023@14:27:57 ENTRY DATE: NOVEMBER 19, 2023@14:27:58 AUTHOR: MILLIE DAVENPORT EXP COSIGNER: URGENCY: STATUS: COMPLETED [place] does have a AFO in the home for R foot drop. He reports that he does not use it because it does not fit well. reports this has been an ongoing issue since he received it and has not follow up to have it refitted. /genoveva/ Millie MEEHAN [facility] building admin Signed: 11/19/2023 14:28 Receipt Acknowledged By: 11/19/2023 16:00 /es/ ROBERT DAVIS RN,MSN,SENIOR SAFETY SUPPORT MANAGER-C [facility] NURSE PRACTITIONER 11/19/2023 15:55 /es/ Clotilde Arthur [facility] Occupational Therapist --- Original Document --- 11/19/23 [facility] ENTRY LEVEL JAVA DEVELOPER NOTE: WHAT MATTERS What Matters was addressed at this visit. Comment: I want to drive MEDICATION Medications were addressed at this visit. Comment: Dtr n law manages prefill. all medications reviewed. updated med list in home MENTATION Depression was addressed at this visit. Comment: denies any ss of depression MENTATION Dementia was addressed at this visit. Comment: alert oriented x 3 forgetful at times. followed by ANIMAL ASSISTANT MENTATION Delirium was addressed at this visit. Comment: No sx of Delirium noted MOBILITY -------- Mobility was addressed at this visit. Comment: encouraged use of cane and or walker. Fall risk. Foot drop. Receiving PT in home services REASON FOR ASSESSMENT: Yearly re-assessment A new Patient handbook was given and reviewed with Patient and/or caregiver. PATIENT IDENTIFICATION is established with [facility], no identification necessary. Length of visit in home: 45min Marital status: Primary language: Togolese Advance Directive discussed with patient: yes Code Status:FULL CODE Family/Community Support:12HRS WEEKLY Length of time alone during the day: all the time EMERGENCY/DISASTER PLAN Emergency/Disaster Plan Form completed with [place]/Caregiver and placed on Veterans refrigerator: Yes MEDICATIONS: Active Outpatient Medications (including Supplies): ACETAMINOPHEN 500MG TAB TAKE TWO TABLETS BY MOUTH THREE ACTIVE TIMES DAILY NEEDED FOR PAIN AMMONIUM LACTATE 12% LOTION APPLY MODERATE AMOUNT ACTIVE TOPICALLY ONCE DAILY FOR DRY IRRITATED SKIN ATORVASTATIN CALCIUM 80MG TAB TAKE ONE TABLET BY MOUTH ACTIVE (S) ONCE DAILY FOR HIGH CHOLESTEROL CHLORTHALIDONE 50MG TAB TAKE ONE TABLET BY MOUTH ONCE ACTIVE DAILY TO REMOVE FLUID/CONTROL BLOOD PRESSURE CHOLECALCIF 50MCG (D3-2,000UNIT) TAB TAKE ONE TABLET BY HOLD MOUTH ONCE DAILY FOR VITAMIN SUPPLEMENTATION DOCUSATE NA 100MG CAP TAKE ONE CAPSULE BY MOUTH TWICE ACTIVE DAILY NEEDED TO SOFTEN STOOL EMPAGLIFLOZIN 25MG TAB TAKE ONE TABLET BY MOUTH ONCE DAILY ACTIVE FUROSEMIDE 20MG TAB TAKE ONE TABLET BY MOUTH EVERY MORNING ACTIVE TO REMOVE FLUID/CONTROL BLOOD PRESSURE GABAPENTIN 300MG CAP TAKE ONE CAPSULE BY MOUTH AT BEDTIME HOLD FOR NERVE PAIN INSULIN SYRINGE 0.5ML 30G [...] ACTIVE MOUTH ONCE DAILY FOR NUTRITIONAL SUPPLEMENTATION NUTR SUPL GLUCERNA THER NUTR SHAKE RICK DRINK 1 BOTTLE BY PENDING MOUTH ONCE DAILY Non-VA ASPIRIN 81MG EC TAB 81MG BY MOUTH ONCE DAILY ACTIVE Non-VA MULTIVITAMIN/MINERALS CAP/TAB 1 TABLET BY MOUTH ACTIVE EVERY DAY Referred to [facility] pharmacy for medication review MEDICATION RECONCILIATION: Medication reconciliation completed during home visit. The was given the opportunity to discuss and ask questions about all prescription medications as well as dietary and herbal supplements, vitamins, OTC medications, etc. Currently, the is taking his/her medications as per the active orders in the electronic record. Patient has a current, accurate, printed list of medications. who assists patient with medications: family patient was given a dated list of all medications including name, dose, dosing schedule, any changes, the 's name and a VA contact name and phone number for questions. This list includes prescription, OTC, herbal, topical, and systemic medications from VA and non-VA sources. Most recent Allergies: LISINOPRIL VITAL SIGNS: Most recent vitals: 98.1 F [36.7 C] (11/17/2023 15:17) 72 (11/17/2023 15:17) 16 (11/17/2023 15:17) 118/60 (11/17/2023 15:17) 3 (11/17/2023 15:17) Men's Health (Male Specific Issues)N/A ------- PAIN ASSESSMENT: Pain Intensity: Scale 1-10 4. Pain History back and r shoulder pain Location of new pain:n/a Radiation: Duration:intermittent Origin: Description: What exacerbate this pain:ambulation Current treatment-medication and non-pharmaceutical:tylenol 500mg 2 tab po tid prn Effectiveness of current treatment:somewhat effective Plan/Education (necessary if pain is greater than 3): Pain management education included a general understanding about pain, the risks for pain, the importance of effective pain management, and the pain assessment process. Done via discussions, printed materials that included the pain education booklet, healthy living pamphlet, CCTV, as needed. MENTAL HEALTH: Depression Screen: Over the past two weeks, how often have you been bothered by the following problems? 1. Little interest or pleasure in doing things? 0 = Not at all 2. Feeling down, depressed, or hopeless? 0 = Not at all Total Score: Interpretation: Negative Mental Status: alert oriented x 3 Behavioral Triggers: (if present refer to social work or pcp for cognitive screening) no behavioral issues no behavioral triggers Short term memory: short term memory intact longterm memory: longterm memory intact How well client makes decisions about organizing the day: minimally impaired - in specific situations, decisions become poor or unsafe, and cues are necessary NEUROLOGICAL: Assessment: impaired speech tremors UE weakness EENT: Vision: sees adequately in most situations Hearing: minimal difficulty Swallowing: normal Dental assessment: Teeth: has own teeth in good condition CARDIOVASCULAR: assessment: decreased endurance shortness of breath Pulses: apical: regular Has peripheral edema Describe:PLUS 1BLE ENCOURAGED ELEVATION LOW SODIUM DIET RESPIRATORY: assessment: No problems lungs: clear: bilaterally GASTROINTESTINAL: Assessment: No problems Abdomen bowel sounds: present Diabetic insulin dependant blood glucose range:201 recent HgbA1C 7.3 NUTRITION SCREEN [facility] Nutrition Screen 1. Does the patient have Food Allergies? No If Yes, then detail the food allergies: 2. Does the patient report unintentional weight loss OR gain of at least 10 pounds in the last three months? No If Yes, then specify: 3. Does the patient report a decrease in food intake and/or appetite? No 4. Are there dental problems that impact ability to consume food? No 5. Does the patient have a swallowing problem? No 6. Does the patient report eating habits or behaviors that may be indicators of an eating disorder (e.g. binging or induced vomiting)? No 7. Persistent nausea, vomiting, or diarrhea? No 8. Is the patient on tube-feeding? No 9. Diabetes? Yes 10.Pressure Sore? No Comments: An [facility] or Home Care Nutrition Consult should be initiated if there is a Yes answer to any of the above listed questions. SKIN ASSESSMENT: Color: Normal, Tattoo Comment: Temperature: Warm Turgor: Good Skin Condition: Intact, Pressure/Ulcer Sensory Perception 3. Slightly Limited Moisture 4. Rarely Moist Activity 3. Occasionally Walks Mobility 3. Slightly Limited Nutrition 3. Adequate Friction & Shear 3. No Apparent Problem INTEGUMENTARY: Bhupendra Scale: 19-23 No Risk Score:19 Intervention/Plan: ( Severe/Moderate Risk= Refer to Nutrition and OT if applicable and PCP) GENITOURINARY: Continent MUSCULOSKELETAL: Assessment: Mobility: unsteady gait difficulty with stairs uses walker Falls: [facility] 10 Fall Risk Assessment Tool Required Core [...] adhere to the plan of care. Total: 7 A score of 4 or more is considered at risk for falling. Created by: [facility] Referral to PT/OT for evaluation ADL STATUS Bathing dependent (needs help with bathing more than one part of the body, getting in or out of the tub/shower, or requires total bathing) Dressing independent (gets clothes from closets and drawers and puts on clothes and outer garments complete with fasteners. May have help tying shoes.) Toileting independent (goes to toilet, gets on and off, arranges clothes, cleans genital areas without help.) Transferring independent (moves in and out of bed or chair unassisted, mechanical transferring aides are acceptable) Continence independent (exercises complete self control over urination and defecation) Feeding independent (gets food from the plate into mouth without help, preparation of food may be done by another) IADL Status Ability to Use Telephone operates a telephone via own initiative, looks up and dials numbers Shopping needs to be accompanied on any shopping trip Food Preparation heats and serves prepared meals or prepares meals but does not maintain adequate diet Housekeeping does not participate in any housekeeping tasks Laundry all laundry must be done by others Transportation travels only when accompanied by others Responsibility for Medications takes responsibility if medication is prepared in advance in separate dosages Ability to Handle Finances manages day to day purchases, but needs help with banking, major purchases, etc. HEALTH MAINTENANCE: alcohol use SPIRITIAL/YARSANISM/BELIEFS/ CULTURAL:Zoroastrian EDUCATIONAL ASSESSMENT: readiness to learn: limited ability to learn: limited reading ability: limited existing knowledge of health status: limited How does patient like to learn? by reading OVERALL PROGNOSIS: Best description of patient's overall prognosis for recovery from this episode of illness. fair: maintenance of current condition is expected. INFORMATION PROVIDED [X] H&CC services and hours of availability [X] Names of H&CC team members/visit frequency [X] Infection control information [X] Patient rights and responsibilities [X] Advance directives information Reviewed information with patient and caregiver Patient and/or caregiver verbalized understanding of information provided PLAN Plan of Care: initial POC developed:Yes instructed initial POC:Yes anticipated length of care:Yes POC developed with patient/caregiver input:Yes patient and caregiver agree with POC:Yes Rn visit performed in 's home for annual assessment. [place] is alert, oriented. VSS. with a hx of IDDM does not follow diabetic diet as he should and he does have a high sodium diet. (breakfast frozen prepared hot pocket, lunch deli sand with soup and dinner -dtrn law prepares food) BG 201 fasting. [place] reports having cookies last night before bed. Education provided on limiting foods high in sugar, sugary drinks and snacks. ENcouraged to avoid canned soups , deli meats and processed prepared foods. requesting Glucerna supplement. RD to patricio at next visit. Labs drawn from L antecube without incidence. [place] jesus well. Spec delivered to [facility] lab by this keno writer / runner. Labs accessioned. [place] had a recent fall. Gait unsteady/ Encouraged use of walker and or cane at all times. reports that his walker does not fit in the hallways. Encouraged to use cane then. [place] was referred to community PT consult. [place] with c.o. Neuropathy Gabapentin doseage increased to 300mg po at bedtime. [place] to start on Friday when his DNL prefills meds. [place] to resume Vit D 2000ux daily and to stop weekly vit D doseage per PCP. Written instructions in the home. [place] has ongoing complex medical needs and benefits from [facility] interdisciplinary management. [place] and cg are included in decision making. All questions answered, education. regarding medications, disease mgt provided. and caregiver verbalize understanding. [place] will be free from falls, infections, and hospitalizations over the next 90 days. /genoveva/ Millie MEEHAN [facility] building admin Signed: 11/19/2023 14:20 Receipt Acknowledged By: 11/19/2023 15:22 /genoveva/ MONSE DUBON [facility] SOLID WASTE ANALYST MILLIE DAVENPORT [place] [facility] November 19, 2023 02:20 PM [facility] NOTE: LOCAL TITLE: [facility] RISK ASSESSMENT STANDARD TITLE: [facility] NOTE DATE OF NOTE: NOVEMBER 19, 2023@14:20 ENTRY DATE: NOVEMBER 19, 2023@14:20:16 AUTHOR: MILLIE DAVENPORT EXP COSIGNER: URGENCY: STATUS: COMPLETED Patient Risk Assessment Date: November Patient Name: GOZNALO VEGA Last 4#: [id number] Reason for Risk Assessment: [ ] Initial Date Admitted: [X] Annual [ ] Update VVC Ready: Yes [ ] No [X] Oxygen: Yes [ ] No [X] Smoker: Yes [ ] No [X] Does patient have air conditioning in the home? Yes [X] No [ ] Does patient have reliable heat in the home? Yes [X] No [ ] Complex Wound: Yes [ ] No [X] Garcia Catheter: Yes [ ] No [X] Type of Equipment: [ ] Liquid Tank: [ ] Concentrator: Exp.Date [ ] Bi-pap: Maintenance Date: [ ] C-pap: Maintenance Date: [ ] Portable Tank: Exp. Date: [ ] Ventilator [ ] Feeding Tube Vendor Name: Phone#: Equipment Requiring Back-Up (list): Does have Back up Generator: Yes [ ] No [X] Risk level for needing in home assistance: [X] Lowest Risk - Live at home with adequate support or in residential housing (e.g. Assistive Living Facility, [facility]way) - Condition stable medically and/or cognitively with access to informal resources for help and/or independent with ADL's [ ] Moderate Risk for Prolonged Emergency situations (> 5 days) - Medical/Cognitive condition more labile with dependable caregiver support - Bedbound with dependable Caregiver support - Supplemental Oxygen with dependable Caregiver support - Patient is equipment dependent, with dependable caregiver (Ventilator/Tube feedings/Dialysis/Joyce lifts/etc.) [ ] Highest Risk - Lives in single family residence with no caregiver support or caregiver is not likely to provide assistance - Condition unstable medically and/or cognitively, with or without identified caregivers and Patient may deteriorate or require alternative services Comments: /genoveva/ Millie MEEHAN [facility] building admin Signed: 11/19/2023 14:20 Receipt Acknowledged By: 11/19/2023 15:21 /genoveva/ MONSE DUBON [facility] SOLID WASTE ANALYST MILLIE DAVENPORT [facility] November 19, 2023 01:34 PM [facility] ADMISSION KAYLEIGH PROCTOR NOTE: LOCAL TITLE: HBPC ENTRY LEVEL JAVA DEVELOPER NOTE STANDARD TITLE: [facility]PC ADMISSION EVALUATION NOTE DATE OF NOTE: NOVEMBER 19, 2023@13:34 ENTRY DATE: NOVEMBER 19, 2023@13:34:14 AUTHOR: MILLIE DAVENPORT EXP COSIGNER: URGENCY: STATUS: COMPLETED [facility]PC ENTRY LEVEL JAVA DEVELOPER NOTE Has ADDENDA WHAT MATTERS What Matters was addressed at this visit. Comment: I want to drive MEDICATION Medications were addressed at this visit. Comment: Dtr n law manages prefill. all medications reviewed. updated med list in home MENTATION Depression was addressed at this visit. Comment: denies any ss of depression MENTATION Dementia was addressed at this visit. Comment: alert oriented x 3 forgetful at times. followed by ANIMAL ASSISTANT MENTATION Delirium was addressed at this visit. Comment: No sx of Delirium noted MOBILITY -------- Mobility was addressed at this visit. Comment: encouraged use of cane and or walker. Fall risk. Foot drop. Receiving PT in home services REASON FOR ASSESSMENT: Yearly re-assessment A new Patient handbook was given and reviewed with Patient and/or caregiver. PATIENT IDENTIFICATION [place] is established with [facility], no identification necessary. Length of visit in home: 45min Marital status: Primary language: Togolese Advance Directive discussed with patient: yes Code Status:FULL CODE Family/Community Support:12HRS WEEKLY Length of time alone during the day: all the time EMERGENCY/DISASTER PLAN Emergency/Disaster Plan Form completed with [place]/Caregiver and placed on Veterans refrigerator: Yes MEDICATIONS: Active Outpatient Medications (including Supplies): ACETAMINOPHEN 500MG TAB TAKE TWO TABLETS BY MOUTH THREE ACTIVE TIMES DAILY NEEDED FOR PAIN AMMONIUM LACTATE 12% LOTION APPLY MODERATE AMOUNT ACTIVE TOPICALLY ONCE DAILY FOR DRY IRRITATED SKIN ATORVASTATIN CALCIUM 80MG TAB TAKE ONE TABLET BY MOUTH ACTIVE (S) ONCE DAILY FOR HIGH CHOLESTEROL CHLORTHALIDONE 50MG TAB TAKE ONE TABLET BY MOUTH ONCE ACTIVE DAILY TO REMOVE FLUID/CONTROL BLOOD PRESSURE CHOLECALCIF 50MCG (D3-2,000UNIT) TAB TAKE ONE TABLET BY HOLD MOUTH ONCE DAILY FOR VITAMIN SUPPLEMENTATION DOCUSATE NA 100MG CAP TAKE ONE CAPSULE BY MOUTH TWICE ACTIVE DAILY NEEDED TO SOFTEN STOOL EMPAGLIFLOZIN 25MG TAB TAKE ONE TABLET BY MOUTH ONCE DAILY ACTIVE FUROSEMIDE 20MG TAB TAKE ONE TABLET BY MOUTH EVERY MORNING ACTIVE TO REMOVE FLUID/CONTROL BLOOD PRESSURE GABAPENTIN 300MG CAP TAKE ONE CAPSULE BY MOUTH AT BEDTIME HOLD FOR NERVE PAIN INSULIN SYRINGE 0.5ML 30G [...] ACTIVE MOUTH ONCE DAILY FOR NUTRITIONAL SUPPLEMENTATION NUTR SUPL GLUCERNA THER NUTR SHAKE RICK DRINK 1 BOTTLE BY PENDING MOUTH ONCE DAILY Non-VA ASPIRIN 81MG EC TAB 81MG BY MOUTH ONCE DAILY ACTIVE Non-VA MULTIVITAMIN/MINERALS CAP/TAB 1 TABLET BY MOUTH ACTIVE EVERY DAY Referred to [facility] pharmacy for medication review MEDICATION RECONCILIATION: Medication reconciliation completed during home visit. The was given the opportunity to discuss and ask questions about all prescription medications as well as dietary and herbal supplements, vitamins, OTC medications, etc. Currently, the is taking his/her medications as per the active orders in the electronic record. Patient has a current, accurate, printed list of medications. who assists patient with medications: family patient was given a dated list of all medications including name, dose, dosing schedule, any changes, the [place]'s name and a VA contact name and phone number for questions. This list includes prescription, OTC, herbal, topical, and systemic medications from VA and non-VA sources. Most recent Allergies: LISINOPRIL VITAL SIGNS: Most recent vitals: 98.1 F [36.7 C] (11/17/2023 15:17) 72 (11/17/2023 15:17) 16 (11/17/2023 15:17) 118/60 (11/17/2023 15:17) 3 (11/17/2023 15:17) Men's Health (Male Specific Issues)N/A ------- PAIN ASSESSMENT: Pain Intensity: Scale 1-10 4. Pain History back and r shoulder pain Location of new pain:n/a Radiation: Duration:intermittent Origin: Description: What exacerbate this pain:ambulation Current treatment-medication and non-pharmaceutical:tylenol 500mg 2 tab po tid prn Effectiveness of current treatment:somewhat effective Plan/Education (necessary if pain is greater than 3): Pain management education included a general understanding about pain, the risks for pain, the importance of effective pain management, and the pain assessment process. Done via discussions, printed materials that included the pain education booklet, healthy living pamphlet, CCTV, as needed. MENTAL HEALTH: Depression Screen: Over the past two weeks, how often have you been bothered by the following problems? 1. Little interest or pleasure in doing things? 0 = Not at all 2. Feeling down, depressed, or hopeless? 0 = Not at all Total Score: Interpretation: Negative Mental Status: alert oriented x 3 Behavioral Triggers: (if present refer to social work or pcp for cognitive screening) no behavioral issues no behavioral triggers Short term memory: short term memory intact longterm memory: buttermaker memory intact How well client makes decisions about organizing the day: minimally impaired - in specific situations, decisions become poor or unsafe, and cues are necessary NEUROLOGICAL: Assessment: impaired speech tremors UE weakness EENT: Vision: sees adequately in most situations Hearing: minimal difficulty Swallowing: normal Dental assessment: Teeth: has own teeth in good condition CARDIOVASCULAR: assessment: decreased endurance shortness of breath Pulses: apical: regular Has peripheral edema Describe:PLUS 1BLE ENCOURAGED ELEVATION LOW SODIUM DIET RESPIRATORY: assessment: No problems lungs: clear: bilaterally GASTROINTESTINAL: Assessment: No problems Abdomen bowel sounds: present Diabetic insulin dependant blood glucose range:201 recent HgbA1C 7.3 NUTRITION SCREEN HB Nutrition Screen 1. Does the patient have Food Allergies? No If Yes, then detail the food allergies: 2. Does the patient report unintentional weight loss OR gain of at least 10 pounds in the last three months? No If Yes, then specify: 3. Does the patient report a decrease in food intake and/or appetite? No 4. Are there dental problems that impact ability to consume food? No 5. Does the patient have a swallowing problem? No 6. Does the patient report eating habits or behaviors that may be indicators of an eating disorder (e.g. binging or induced vomiting)? No 7. Persistent nausea, vomiting, or diarrhea? No 8. Is the patient on tube-feeding? No 9. Diabetes? Yes 10.Pressure Sore? No Comments: An HB or Home Care Nutrition Consult should be initiated if there is a Yes answer to any of the above listed questions. SKIN ASSESSMENT: Color: Normal, Tattoo Comment: Temperature: Warm Turgor: Good Skin Condition: Intact, Pressure/Ulcer Sensory Perception 3. Slightly Limited Moisture 4. Rarely Moist Activity 3. Occasionally Walks Mobility 3. Slightly Limited Nutrition 3. Adequate Friction & Shear 3. No Apparent Problem INTEGUMENTARY: Bhupendra Scale: 19-23 No Risk Score:19 Intervention/Plan: ( Severe/Moderate Risk= Refer to Nutrition and OT if applicable and PCP) GENITOURINARY: Continent MUSCULOSKELETAL: Assessment: Mobility: unsteady gait difficulty with stairs uses walker Falls: [facility] 10 Fall Risk Assessment Tool Required Core [...] adhere to the plan of care. Total: 7 A score of 4 or more is considered at risk for falling. Created by: [facility] Referral to PT/OT for evaluation ADL STATUS Bathing dependent (needs help with bathing more than one part of the body, getting in or out of the tub/shower, or requires total bathing) Dressing independent (gets clothes from closets and drawers and puts on clothes and outer garments complete with fasteners. May have help tying shoes.) Toileting independent (goes to toilet, gets on and off, arranges clothes, cleans genital areas without help.) Transferring independent (moves in and out of bed or chair unassisted, mechanical transferring aides are acceptable) Continence independent (exercises complete self control over urination and defecation) Feeding independent (gets food from the plate into mouth without help, preparation of food may be done by another) IADL Status Ability to Use Telephone operates a telephone via own initiative, looks up and dials numbers Shopping needs to be accompanied on any shopping trip Food Preparation heats and serves prepared meals or prepares meals but does not maintain adequate diet Housekeeping does not participate in any housekeeping tasks Laundry all laundry must be done by others Transportation travels only when accompanied by others Responsibility for Medications takes responsibility if medication is prepared in advance in separate dosages Ability to Handle Finances manages day to day purchases, but needs help with banking, major purchases, etc. HEALTH MAINTENANCE: alcohol use SPIRITIAL/YARSANISM/BELIEFS/ CULTURAL:Zoroastrian EDUCATIONAL ASSESSMENT: readiness to learn: limited ability to learn: limited reading ability: limited existing knowledge of health status: limited How does patient like to learn? by reading OVERALL PROGNOSIS: Best description of patient's overall prognosis for recovery from this episode of illness. fair: maintenance of current condition is expected. INFORMATION PROVIDED [X] H&CC services and hours of availability [X] Names of H&CC team members/visit frequency [X] Infection control information [X] Patient rights and responsibilities [X] Advance directives information Reviewed information with patient and caregiver Patient and/or caregiver verbalized understanding of information provided PLAN Plan of Care: initial POC developed:Yes instructed initial POC:Yes anticipated length of care:Yes POC developed with patient/caregiver input:Yes patient and caregiver agree with POC:Yes Rn visit performed in 's home for annual assessment. [place] is alert, oriented. VSS. [place] with a hx of IDDM does not follow diabetic diet as he should and he does have a high sodium diet. (breakfast frozen prepared hot pocket, lunch deli sand with soup and dinner -dtrn law prepares food) BG 201 fasting. reports having cookies last night before bed. Education provided on limiting foods high in sugar, sugary drinks and snacks. ENcouraged to avoid canned soups , deli meats and processed prepared foods. [place] requesting Glucerna supplement. RD to eval at next visit. Labs drawn from L antecube without incidence. jesus well. Spec delivered to [facility] lab by this keno writer / runner. Labs accessioned. had a recent fall. Gait unsteady/ Encouraged use of walker and or cane at all times. [place] reports that his walker does not fit in the hallways. Encouraged to use cane then. [place] was referred to community PT consult. with c.o. Neuropathy Gabapentin doseage increased to 300mg po at bedtime. [place] to start on Friday when his DNL prefills meds. [place] to resume Vit D 2000ux daily and to stop weekly vit D doseage per PCP. Written instructions in the home. [place] has ongoing complex medical needs and benefits from [facility] interdisciplinary management. and cg are included in decision making. All questions answered, education. regarding medications, disease mgt provided. and caregiver verbalize understanding. [place] will be free from falls, infections, and hospitalizations over the next 90 days. /genoveva/ Millie MEEHAN [facility] building admin Signed: 11/19/2023 14:20 Receipt Acknowledged By: 11/19/2023 15:22 /genoveva/ MONSE DUBON [facility] SOLID WASTE ANALYST 11/19/2023 ADDENDUM STATUS: COMPLETED does have a AFO in the home for R foot drop. He reports that he does not use it because it does not fit well. [place] reports this has been an ongoing issue since he received it and has not follow up to have it refitted. /genoveva/ Millie MEEHAN [facility] building admin Signed: 11/19/2023 14:28 Receipt Acknowledged By: * AWAITING SIGNATURE * ROBERT DAVIS * AWAITING SIGNATURE * CLOTILDE ARTHUR DAWN [facility]
--- OUTSIDE RECORDS SUMMARY | 2024-07-04 16:09 | XMS_ITS | Encounter Summary ---
Author Name [facility] [place] [facility] [place] Address [address] [place] [address] Care Team Providers Care Cooler Tender Name Role Phone ROBERT DAVIS Primary Care [...] O MEDEX BRONZ E Jun [birth year], 2001 [id number] [facility] PATIENT ANTHEM [place] OF [place] ([place]ARD) MEDICARE SUPPLEMEN BHARGAVI PSUED O MEDEX BRONZ E Jun 06, 2001 [id number] [phone] [place] PATIENT [place]BS [place] MEDICARE SUPPLEMEN BHARGAVI MEDEX BRONZ E Jun 06, 2001 [id number] [facility] OM[place] PATIENT [place]BS [place] MED[place] SUPPLEMEN BHARGAVI PSUED O MEDEX BRONZ E Jun 06, 2001 [id number] [phone] [facility] OM[place] PATIENT [place] MEDICARE SUPPLEMEN BHARGAVI PSUED O MEDEX BRONSalbador E Jun 06, 2001 [id number] [phone] HUDOCK,RACHEL OMAS PATIENT MEDICARE (WNR) MEDICARE (M) PART A May 07, 2001 PART A [id number] HUDOCK,RACHEL OM[place] PATIENT MEDICARE (WNR) MEDICARE (M) PART B May 07, 2001 PART B [id number] HUDOCK,RCAHEL OMAS PATIENT MEDICARE (WNR) MEDICARE (M) PART A May 07, 2001 PART A [id number] HUDOCK,RACHEL OMAS PATIENT MEDICARE (WNR) MEDICARE (M) PART B May 07, 2001 PART B [id number] HUDMERLIN,RACHEL OMAS PATIENT MEDICARE (WNR) MEDICARE (M) PART A May 07, 2001 PART A [id number] HUDMERLIN,RACHEL OMAS PATIENT MEDICARE (WNR) MEDICARE (M) PART B May 07, 2001 PART B [id number] HUDMERLIN,RACHEL OMAS PATIENT MEDICARE (WNR) MEDICARE (M) PART A May 07, 2001 PART A [id number] HUDMERLIN,RACHEL OMAS PATIENT MEDICARE (WNR) MEDICARE (M) PART B May 07, 2001 PART B [id number] HUDRACHEL BOYER OMGUANACO PATIENT Selected Encounter This section includes the information on record at [place] for the Encounter. Date/Time Encounter Type Encounter Description Reason Pro vider Source November 21, 2023 07:12 PM Outpatient Encounter ENDOCRINOLOGY IHE Encounter Template [...] 20 appointments. The data comes from all [place] treatment facilities. Appointment Date/Time Appointment Type Appointme nt Facility Name December 04, 2023 11:00 AM AMBULATORY [place]ICINE [place] [facility] [place] [facility] Dec 23, 2023 11:00 AM AMBULATORY - MEDICINE [place] [facility] [place] [facility] Jan 21, 2024 08:00 AM AMBULATORY - MEDICINE [place] [facility] [place] [facility] May 08, 2024 08:00 AM AMBULATORY - MEDICINE [place] [facility] [place] [facility] Lab Results: +/- 30 days of the encounter This section includes the Chemistry and Hematology Lab Results on record with [place] for the patient. Radiology Reports and Pathology Reports are provided separately, in subsequent sections. Lab Results This section contains the Chemistry/Hematology Results that were resulted 30 days before or 30 daysafter the date of the Encounter. Date/Time Source Result Type Result - Unit Interpretation Reference Range Comment November 19, 2023 10:00 AM [facility] HEMOGLOBIN A1C PANEL Specimen Type: BLOOD Comment: [...] Aug 25, 2023 07:46 AM Reporting [facility]: [facility] [place] [facility] [address] [address] Performing Lab: [facility] [address] [address] HEMOGLOBIN A1C 6.8 H 4.0-5.6 November 19, 2023 10:00 AM [facility] TSH Specimen Type: SERUM No comment entered. Ordering Provider: PADMA URIBE Report Released Date/Time: Aug 29, 2023 07:37 PM Reporting Lab: [facility] [place] [facility] [address] [address] Performing Lab: [facility] [address] [address] TSH 2.60 u[IU]/mL 0.35-5.00 November 19, 2023 10:00 AM [facility] URIC ACID Specimen Type: SERUM No comment entered. Ordering Provider: PADMA URIBE Report Released Date/Time: Aug 29, 2023 07:37 PM Reporting Lab: [address] [address] Performing Lab: [address] [address] URIC ACID 9.2 mg/dL H 3.5-7.2 November 19, 2023 10:00 AM [facility] BASIC METABOLIC PANEL (non-fasting) Specimen Type: SERUM No comment entered. Ordering Provider: FABI MCKEON Report Released Date/Time: Aug 25, 2023 07:46 AM Reporting Lab: [address] [address] Performing Lab: [address] [address] UREA NITROGEN 45 mg/dL H 7-25 GLUCOSE 206 mg/dL H 65-100 SODIUM 138 mmol/L 135-145 POTASSIUM 4.8 mmol/L 3.5-5.0 CHLORIDE 104 mmol/L 100-110 CO2 26 meq/L 20-30 CREATININE, Serum 1.41 mg/dL H 0.50-1.40 eGFR(CKD-EPI 2020) 48 mL/min L >60 Social History: Smoking Status (Most current) and Tobacco Use (All prior to encounter date) This section includes the most current, and the historical, smoking and tobacco- related health factors from the [place] facility where the Encounter took place. Current Smoking Status This section includes the most current smoking, or tobacco-related health factor, from the [place] facility where the Encounter took place. Date/Time Current Smoking Status Comment Facil ity November 17, 2023 08:31 AM VA-TOBACCO FORMER USER [facility] Tobacco Use History This section includes a history of the smoking, or tobacco-related health factors, that were collected on or before the date of the Encounter. The data comes from the [place] facility where the Encounter took place. Date/Time Smoking Status/Tobac co Use Comment Facility November 17, 2023 08:31 AM VA-TOBACCO QUIT 15 YRS OR MORE [place] [facility] [place] [facility] May 07, 2022 09:00 AM VA-TOBACCO FORMER USER [place] [facility] [place] [facility] May 07, 2022 09:00 AM VA-TOBACCO QUIT 15 YRS OR MORE [place] [facility] [place] [facility] May 21, 2021 08:00 AM VA-TOBACCO FORMER USER [place] [facility] [place] [facility] May 21, 2021 08:00 AM VA-TOBACCO QUIT 15 YRS OR MORE [place] [facility] [place] [facility] Apr 24, 2020 11:00 AM VA-TOBACCO FORMER USER [place] [facility] [place] [facility] Apr 24, 2020 11:00 AM VA-TOBACCO QUIT 15 YRS OR MORE [place] [facility] [place] [facility] Jan 15, 2018 10:57 AM QUIT TOBACCO USE > 7 YEARS AGO [place] [facility] [place] [facility] Dec 10, 2016 08:53 AM QUIT TOBACCO USE > 7 YEARS AGO [place] [facility] [place] [facility] Jul 19, 2015 10:22 AM QUIT TOBACCO USE > 7 YEARS AGO Quit about 40 years ago. [place] [facility] [place] [facility] November 14, 2004 10:00 AM HISTORY OF SMOKING [place] [facility] [place] [facility] November 14, 2004 10:00 AM LIFETIME NON-SMOKER [place] [facility] [place] [facility] Oct 25, 2003 10:34 AM HISTORY OF SMOKING [place] [facility] [place] [facility] Oct 07, 2002 09:41 AM HISTORY OF SMOKING [place] [facility] [place] [facility] Nov 03, 2001 10:31 AM QUIT TOBACCO USE > 7 YEARS AGO [place] [facility] [place] [facility] Jul 31, 2001 02:15 PM NON-TOBACCO USER Quit 20 yrs ago [place] [facility] [place] [facility] Advance Directives: All historical and current Section Date Range: From patient's date of to the date document was created. This section includes ALL of a patient's completed or amended [place] Advance and Rescinded Directives. The entries below indicate that a directive exists for the patient, but an actual copy is not included with this document. The data comes from all [place] facilities. Date Advance Directives Provider Source Jul 03, 2023 ADVANCE DIRECTIVE RICHARD BAZZI MARK CNT RL [facility] Encounter Notes: All associated encounter notes This section contains the clinical notes associated to the Encounter. Date/Time Encounter Note(s) Provider Source November 21, 2023 07:12 PM LETTERS: LOCAL TITLE: PATIENT LETTER (B) STANDARD TITLE: LETTERS DATE OF NOTE: NOVEMBER 21, 2023@19:12 ENTRY DATE: NOVEMBER 21, 2023@19:12:32 AUTHOR: FABI MCKEON COSIGNER: URGENCY: STATUS: COMPLETED November [address] [address], [place] [address] Dear , Your recent test results are as follows: 11/19/2023 10:00 BLOOD !! HEMOGLOBIN A1C 6.8 H % 4.0 - 5.6 11/19/2023 10:00 SERUM TSH 2.60 uIU/mL 0.35 - 5.00 CREATININE, Serum 1.41 H mg/dL 0.50 - 1.40 eGFR(CKD-EPI 2020 48 L mL/min Ref: >=60 SODIUM 138 mmol/L 135 - 145 POTASSIUM 4.8 mmol/L 3.5 - 5.0 CHLORIDE 104 mmol/L 100 - 110 CO2 26 mEq/L 20 - 30 UREA NITROGEN 45 H mg/dL 7 - 25 GLUCOSE 206 H mg/dL 65 - 100 URIC ACID 9.2 H mg/dL 3.5 - 7.2 Your kidney function has decreased slowly over time, but is reasonable for age. Your chemistries are fine, as is your thyroid blood test. I will let your team know about your elevated uric acid. Please call if you have any questions or concerns at [phone] option 2 option 4. Sincerely, MD LINDA Mims [facility]ICE [facility]
--- OUTSIDE RECORDS SUMMARY | 2024-07-04 16:09 | XMS_ITS ---
Author Name [facility] ([place] Address [address] [place] [address] Care Team Providers Care Panel Gluer Name Role Phone ROBERT DAVIS Primary Care [...] O MEDEX BRONZ E Jun 06, 2001 [id number] OMAS PATIENT ANTHEM BCBS OF CT (BLUECARD) MEDICARE SUPPLEMEN BHARGAVI PSUED O MEDEX BRONZ E Jun 06, 2001 [id number] OMAS PATIENT BCBS [place] MEDICARE SUPPLEMEN BHARGAVI MEDEX BRONZ E Jun 06, 2001 [id number] OMAS PATIENT [place]BS [place] MEDICARE SUPPLEMEN BHARGAVI PSUED O MEDEX BRONZ E Jun 06, 2001 [id number] RACHEL VEGA OM[place] PATIENT [place] MED[place] SUPPLEMEN BHARGAVI PSUED O MEDEX BRONZ E Jun 06, 2001 [id number] RACHEL VEGA OMAS PATIENT MEDICARE (WNR) MEDICARE (M) PART A May 07, 2001 PART A [id number] HUDOCK,RACHEL OMAS PATIENT MEDICARE (WNR) MEDICARE (M) PART B May 07, 2001 PART B [id number] [phone] HUDOCK,RACHEL OMAS PATIENT MEDICARE (WNR) MEDICARE (M) PART A May 07, 2001 PART A [id number] HUDMERLIN,RACHEL OMAS PATIENT MEDICARE (WNR) MEDICARE (M) PART B May 07, 2001 PART B [id number] HUDRACHEL BOYER OMAS PATIENT MEDICARE (WNR) MEDICARE (M) PART A May 07, 2001 PART A [id number] ([id number] HUDRACHEL BOYER OMAS PATIENT MEDICARE (WNR) MEDICARE (M) PART B May 07, 2001 PART B [id number] ([id number] HUDMERLIN,RACHEL OMAS PATIENT MEDICARE (WNR) MEDICARE (M) PART A May 07, 2001 PART A [id number] [phone] HUDRACHEL BOYER OMAS PATIENT MEDICARE (WNR) MEDICARE (M) PART B May 07, 2001 PART B [id number] [phone] HUDRACHEL BOYER OMGUANACO PATIENT Selected Encounter This section includes the information on record at [place] for the Encounter. Date/Time Encounter Type Encounter Description Reason Pro vider Source November 11, 2023 08:03 AM Outpatient Encounter [facility] PHYSIC EXTND(RN OCCUPATIONAL,RELAY SHOP TESTER,PA) IHE Encounter Template Text not used by [...] 20 appointments. The data comes from all [place] treatment facilities. Appointment Date/Time Appointment Type Appointme nt Facility Name November 21, 2023 08:00 AM AMBULATORY - MEDICINE [place] [facility] [place] [place] [facility] December 04, 2023 11:00 AM AMBULATORY - MEDICINE [facility] [place] [place] [facility] Dec 23, 2023 11:00 AM AMBULATORY - MEDICINE [facility] [place] [facility] Jan 21, 2024 08:00 AM AMBULATORY - MEDICINE [place] [facility] [place] [facility] May 08, 2024 08:00 AM AMBULATORY - MEDICINE [place] [facility] [place] [facility] Lab Results: +/- 30 days of the encounter This section includes the Chemistry and Hematology Lab Results on record with [place] for the patient. Radiology Reports and Pathology Reports are provided separately, in subsequent sections. Lab Results This section contains the Chemistry/Hematology Results that were resulted 30 days before or 30 daysafter the date of the Encounter. Date/Time Source Result Type Result - Unit Interpretation Reference Range Comment November 19, 2023 10:00 AM [facility] HEMOGLOBIN A1C PANEL Specimen Type: [...] Aug 25, 2023 07:46 AM Reporting [facility]: [facility] [place] [facility] [address] [facility] [facility] [address] Performing Lab: [facility] [address] [facility] [facility] [address] HEMOGLOBIN A1C 6.8 H 4.0-5.6 November 19, 2023 10:00 AM [facility] TSH Specimen Type: SERUM No comment entered. Ordering Provider: PADMA URIBE Report Released Date/Time: Aug 29, 2023 07:37 PM Reporting Lab: [facility] [address] [facility] [facility] [address] Performing Lab: [facility] [address] [facility] [address] TSH 2.60 u[IU]/mL 0.35-5.00 November 19, 2023 10:00 AM [facility] URIC ACID Specimen Type: SERUM No comment entered. Ordering Provider: PADMA URIBE Report Released Date/Time: Aug 29, 2023 07:37 PM Reporting Lab: [address] [address] Performing Lab: [address] [address] URIC ACID 9.2 mg/dL H 3.5-7.2 November 19, 2023 10:00 AM [facility] BASIC METABOLIC PANEL (non-fasting) Specimen Type: SERUM No comment entered. Ordering Provider: FABI MCKEON Report Released Date/Time: Aug 25, 2023 07:46 AM Reporting Lab: [address] [address] Performing Lab: [address] [address] UREA NITROGEN 45 mg/dL H 7-25 GLUCOSE [...] and tobacco- related health factors from the [place] facility where the Encounter took place. Current Smoking Status This section includes the most current smoking, or tobacco-related health factor, from the [place] facility where the Encounter took place. Date/Time Current Smoking Status Comment Benjy sherman May 07, 2022 09:00 AM VA-TOBACCO FORMER USER [facility] Tobacco Use History This section includes a history of the smoking, or tobacco-related health factors, that were collected on or before the date of the Encounter. The data comes from the [place] facility where the Encounter took place. Date/Time Smoking Status/Tobac co Use Comment Facility May 07, 2022 09:00 AM VA-TOBACCO QUIT 15 YRS OR MORE [facility] May 21, 2021 08:00 AM VA-TOBACCO [facility] May 21, 2021 08:00 AM VA-TOBACCO QUIT 15 YRS OR MORE [facility] Apr 24, 2020 11:00 AM VA-TOBACCO FORMER USER [facility] Apr 24, 2020 11:00 AM VA-TOBACCO QUIT 15 YRS OR MORE [facility] Jan 15, 2018 10:57 AM QUIT TOBACCO USE > 7 YEARS AGO [facility] Dec 10, 2016 08:53 AM QUIT TOBACCO USE > 7 YEARS AGO [facility] Jul 19, 2015 10:22 AM QUIT TOBACCO USE > 7 YEARS AGO Quit about 40 years ago. [facility] November 14, 2004 10:00 AM HISTORY OF SMOKING [facility] November 14, 2004 10:00 AM LIFETIME NON-SMOKER [facility] Oct 25, 2003 10:34 AM HISTORY OF SMOKING [facility] Oct 07, 2002 09:41 AM HISTORY OF SMOKING [facility] Nov 03, 2001 10:31 AM QUIT TOBACCO USE > 7 YEARS AGO [facility] Jul 31, 2001 02:15 PM NON-TOBACCO USER Quit 20 yrs ago [facility] Advance Directives: All historical and current Section Date Range: From patient's date of to the date document was created. This section includes ALL of a patient's completed or amended VA Advance and Rescinded Directives. The entries below indicate that a directive exists for the patient, but an actual copy is not included with this document. The data comes from all [place] facilities. Date Advance Directives Provider Source Jul 03, 2023 ADVANCE DIRECTIVE RICHARD BAZZI DE CNT RL [facility] Encounter Notes: All associated encounter notes This section contains the clinical notes associated to the Encounter. 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 Peripheral neuropathy due to type 2 diabetes mellitus 3. Diabetic retinopathy associated with type 2 diabetes mellitus 4. Coronary artery disease 3 vessel CABG @ [facility], 03/2016. 5. Personal History of Colonic Polyps One TA, two HP polyps diverticulosis on 09/06/2010 colonoscopy 6. Osteoarthritis 7. Elevated Prostate Specific Antigen (PSA) 8. Anemia * 9. Vitamin B 12 Deficiency 10. Other and unspecified alcohol dependence, unspecified drinking behavior (ICD 11. Back Pain 12. Hyperlipidemia (SNOMED CT 90189897) 13. Hypertension (SNOMED CT 22069469) 14. Diabetes mellitus (SNOMED CT 09853824) Active Outpatient Medications Status 1) AMMONIUM LACTATE [...] MOUTH WEEKLY FOR VITAMIN D DEFICIENCY 5) DOCUSATE NA 100MG CAP TAKE ONE CAPSULE BY MOUTH TWICE ACTIVE DAILY NEEDED TO SOFTEN STOOL 6) EMPAGLIFLOZIN 25MG TAB TAKE ONE TABLET BY MOUTH ONCE ACTIVE DAILY 7) FUROSEMIDE 20MG TAB TAKE ONE TABLET BY MOUTH EVERY ACTIVE (S) MORNING TO REMOVE FLUID/CONTROL BLOOD PRESSURE 8) GABAPENTIN 100MG CAP TAKE TWO CAPSULES BY MOUTH AT ACTIVE (S) BEDTIME FOR NERVE PAIN 9) INSULIN SYRINGE 0.5ML 30G 12MM USE 1 SYRINGE ACTIVE SUBCUTANEOUSLY FOUR TIMES DAILY NEEDED FOR INSULIN INJECTIONS 10) INSULIN,ASPART,HUMAN 100 UNIT/ML INJ INJECT 5 UNITS ACTIVE SUBCUTANEOUSLY EVERY MORNING NEEDED AND INJECT 3 UNITS AT NOON AND INJECT 8 UNITS EVERY EVENING BEFORE SUPPER 11) INSULIN,GLARGINE-YFGN 100UNIT/ML INJ INJECT 14 UNITS ACTIVE SUBCUTANEOUSLY ONCE DAILY 12) LISINOPRIL 10MG TAB TAKE ONE TABLET BY MOUTH ONCE ACTIVE (S) DAILY FOR HIGH BLOOD PRESSURE TO CONTROL BLOOD PRESSURE 13) NUTR SUPL GLUCERNA THER NUTR SHAKE RICK DRINK 1 ACTIVE BOTTLE BY MOUTH ONCE DAILY FOR NUTRITIONAL SUPPLEMENTATION Inactive Outpatient Medications Status 1) CYANOCOBALAMIN 1000MCG TAB TAKE ONE TABLET BY MOUTH DAILY FOR VITAMIN SUPPLEMENTATION Active Non-VA Medications Status 1) Non-VA ACETAMINOPHEN 500MG TAB 500MG BY MOUTH TWICE ACTIVE DAILY NEEDED 2) Non-VA ASPIRIN 81MG EC TAB 81MG BY MOUTH ONCE DAILY ACTIVE 3) Non-VA MULTIVITAMIN/MINERALS CAP/TAB 1 TABLET BY ACTIVE MOUTH EVERY DAY 4) Non-VA OTHER CAP/TAB IRON 28 MG? BY MOUTH ONCE DAILY ACTIVE 18 Total Medications Gender Specific Health Assessment: hx of Elevate PSA Fall Risk: [facility] 10 Fall Risk Assessment Tool Required [...] considered at risk for falling. Created by: [facility] Functional Limitations Use [...] process GOAL will not sustain a fall will demonstrate selective preventative measures to prevent [...] : A1C will be less than 8 will have a BG reading of less [...] to be under 200 in 3 months. [place] will participate in activities that reduce blood [...] dizziness, lightheadedness, headache or vision changes. Evaluate reports of evidence of extreme fatigue and activity intolerance. Educate [place] on signs and symptoms of hypertension and when to report to [facility] provider(s) or seek emergency medical care. Monitor response to medications to control blood pressure. Provide education about anti- hypertensive medication. Educate on life-style modifications that can reduce hypertension/hyperlipidemia. Heart Healthy Diet (low sodium, low fat/cholesterol, high fiber), Assess and teach in home self BP checks. Teach CGs to notify HB and or 911 as needed. Skilled Interventions: set up medications as ordered venipuncture per RN OCCUPATIONAL order oxygen saturation :as needed SOB PRN [...] will recognize changes that require reporting to [facility] staff patient will do accuchecks and follow diabetic diet patient will demonstrate correct use of adaptive equipment patient will be safe in home with environment adjusted to accomodate decrease in cognition and/or increase in disease progression Involvement of additional [facility] team members: N.P. assess and attach specific plan SW assess and attach specific plan RD assess and attach specific plan O.T. assess and attach specific plan request pharmacy review of medications Discharge Plan when able to remain in community safely with assistance of services and or family Per [facility] Discharge Policy [place] is an 88 year old male who lives alone in a single family home. He has 2 son's who live by and are very involved and supportive. 's dnl manages medications and prefills med box's weekly for . Family prepares meals for as well. [place] has a hx of IDDM is followed by Dr Mckeon, CKD and is followed by Dr Jaimes. BG poorly controlled. does not always follow dietary reccomendations and eats mostly prepared frozen meals. Education provided but because lives alone this form of food is easier for him to prepare. A1C 7.1 Insulin doses increased (aspart and glargine 17 units daily)and is on Empagliflozin 25mg po daily. [place] with a hx of chronic back pain gudelia with amb. The pain resolves with rest. will take an occasional Tylenol 500mg 2 tabs without any effect. [place]'s gait is slightly unsteady at times. He uses a walker when he leaves the home. Around the house he will use the cane. No report of falls. [place] with a hx of CAD is followed by Dr Sewell podiatric technician.Recent Echo performed with follow up appt. Request records. [place]'s bp has been running higher than usual [...] Denies any S.I. family supportive. Followed by NOHELIA MENTATION Dementia was addressed at this visit. Comment: AOX3 forgetful at times. MENTATION Delirium was addressed at this visit. Comment: No sx noted MOBILITY -------- Mobility was addressed at this visit. Comment: Gait sl steady. Use of cane and walker. Free from falls. 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 [place]'s goal is to live at home as long as possible. Continue to provide comprehensive medical care in the home. Assess for ss of depression, coping, home safety. has ongoing complex medical needs and benefits from [facility] interdisciplinary management. and cg are included in decision making. All questions answered, education regarding medication, and disease mgt reinforced with who verbalizes understanding. will be free from falls, infection, and hospitalizations over the next 90 days. PLAN OF CARE REVIEWED WITH IDT TEAM /es/ Millie MEEHAN [facility] underwater trapper Signed: 11/11/2023 11:45 Receipt Acknowledged By: 11/11/2023 11:53 /es/ JHONNY NIEVES RN, BSN [facility] SCHOOL SPEECH THERAPIST 11/12/2023 08:20 /es/ Malgorzata Suggs, MSN, RN OCCUPATIONAL [facility] Talent Sourcer 11/12/2023 14:10 /es/ MARQUES GRANGER [facility] NURSE PRACTITIONER 11/12/2023 08:25 /es/ PADMA URIBE [facility] Clinical Pharmacist Practitioner 11/11/2023 11:56 /es/ ROBERT DAVIS RN,MSN,CASCARA BARK CUTTER-C [facility] NURSE PRACTITIONER 11/18/2023 15:55 /es/ OVIDIO LOWE RD, LDN REGISTERED DIETITIAN 11/11/2023 13:01 /es/ Amalia Florez RN [facility] underwater trapper 11/12/2023 07:56 /es/ RICHARD BAZZI WEB USER EXPERIENCE STRATEGIST [facility] Haulpak Driver 11/13/2023 07:32 /es/ Clotilde Arthur [facility] Occupational Therapist 11/11/2023 12:08 /es/ CASSANDRA FERRELL STAFF DIETITIAN 11/11/2023 15:28 /es/ TERRANCE Waller MD 11/11/2023 ADDENDUM STATUS: COMPLETED Will continue to follow every 6-12 months for routine medical care and as needed for changes in condition. /es/ ROBERT DAVIS RN,MSN,CASCARA BARK CUTTER-C [facility] NURSE PRACTITIONER Signed: 11/11/2023 11:57 11/12/2023 ADDENDUM STATUS: COMPLETED Haulpak Driver to provide psychosocial support as needed. Annual assessment to be conducted this month. /es/ MARY GARCIA [facility] Haulpak Driver Signed: 11/12/2023 07:57 11/12/2023 ADDENDUM STATUS: COMPLETED Will continue to review medication regimen quarterly. /es/ PADMA URIBE [facility] Clinical Pharmacist Practitioner Signed: 11/12/2023 08:26 11/13/2023 ADDENDUM STATUS: COMPLETED No [facility] rehab needs identified at this time; will follow up with [place] annually and as need arises for change in function. /es/ Clotilde Arthur [facility] Occupational Therapist Signed: 11/13/2023 07:34 11/18/2023 ADDENDUM STATUS: COMPLETED [place] discussed at IDT meeting. Plan: 1. Follow-up visit: annually or sooner [...] OVIDIO LOWE RD, LDN REGISTERED DIETITIAN Signed: 11/18/2023 15:56 MILLIE DAVENPORT [facility]
--- OUTSIDE RECORDS SUMMARY | 2024-07-04 16:09 | XMS_ITS | Encounter Summary ---
Author Name [facility] Organization [facility] Address [address] [place] [address] Care Team Providers Care Insurance Marketing Specialist Name Role Phone ROBERT DAVIS Primary Care [...] O MEDEX BRONZ E Jun 06, 2001 [id number] [phone] OMAS PATIENT ANTHEM BCBS OF [place] (BLUECARD) MEDICARE SUPPLEMEN BHARGAVI PSUED O MEDEX BRONZ E Jun 06, 2001 [id number] OMAS PATIENT BCBS [place] MEDICARE SUPPLEMEN BHARGAVI MEDEX BRONZ E Jun 06, 2001 [id number] OM[place] PAT[place] SUPPLEMEN BHARGAVI PSUED O MEDEX BRONZ E Jun 06, 2001 [id number] RACHEL RIOS [place] PATIENT [place] MED[place] SUPPLEMEN BHARGAV[place] PSUED O MEDEX BRONZ E Jun 06, 2001 [id number] RACHEL RIOS OMAS PATIENT MEDICARE (WNR) MEDICARE (M) PART A May 07, 2001 PART A [id number] HUDOCK,RACHEL OMAS PATIENT MEDICARE (WNR) MEDICARE (M) PART B May 07, 2001 PART B [id number] HUDOCK,RACHEL OMAS PATIENT MEDICARE (WNR) MEDICARE (M) PART A May 07, 2001 PART A [id number] ([id number] HUDMERLIN,RACHEL OMAS PATIENT MEDICARE (WNR) MEDICARE (M) PART A May 07, 2001 PART A [id number] RACHEL RIOS OMAS PATIENT MEDICARE (WNR) MEDICARE (M) PART B May 07, 2001 PART B [id number] HUDRACHEL BOYER OMAS PATIENT MEDICARE (WNR) MEDICARE (M) PART B May 07, 2001 PART B [id number] ([id number] HUDMERLIN,RACHEL OMAS PATIENT MEDICARE (WNR) MEDICARE (M) PART A May 07, 2001 PART A [id number] HUDRACHEL BOYER OMAS PATIENT MEDICARE (WNR) MEDICARE (M) PART B May 07, 2001 PART B [id number] HUDRACHEL BOYER [facility] PATIENT Selected Encounter This section includes the information on record at [place] for the Encounter. 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 Date/Time Primary/Secondary Diagnosis Diagnosis Name Provider Source November 13, 2023 05:48 PM PRIMARY Other detention (current) drug therapy PADMA URIBE [facility] Plan of Treatment: Future Appointments (+ 6 months) and Future Tests (+/- 45 days) The Plan of Treatment section includes future care activities for the patient [facility] This section includes future appointments and future orders which are active, pending or scheduled. Future Appointments This section includes appointments that were scheduled to occur 6 months from the date of the Encounter, up to a maximum of 20 appointments. The data comes from all [place] treatment facilities. Appointment Date/Time Appointment Type Appointme nt Facility Name November 21, 2023 08:00 AM AM[facility]ULATORY MED[facility]INE [facility] December 04, 2023 11:00 AM [facility] Dec 23, 2023 11:00 AM [facility] Jan 21, 2024 08:00 AM [facility] May 08, 2024 08:00 AM AMBULATORY MEDICINE [facility] Lab Results: +/- 30 days of the encounter This section includes the Chemistry and Hematology Lab Results on record with [place] for the patient. Radiology Reports and Pathology Reports are provided separately, in subsequent sections. Lab Results This section contains the Chemistry/Hematology Results that were resulted 30 days before or 30 daysafter the date of the Encounter. Date/Time Source Result Type Result - Unit Interpretation Reference Range Comment November 19, 2023 10:00 AM [facility] HEMOGLOBIN A1C PANEL Specimen Type: BLOOD [...] Aug 25, 2023 07:46 AM Reporting Lab: [address] [id number] Performing Lab: [address] [place] [address] HEMOGLOBIN A1C 6.8 H 4.0-5.6 November 19, 2023 10:00 AM [facility] TSH Specimen Type: SERUM No comment entered. Ordering Provider: PADMA URIBE Report Released Date/Time: Aug 29, 2023 07:37 PM Reporting Lab: [address] [address] Performing Lab: [address] [address] TSH 2.60 u[IU]/mL 0.35-5.00 November 19, 2023 10:00 AM [facility] BASIC METABOLIC PANEL (non-fasting) Specimen Type: SERUM No comment entered. Ordering Provider: FABI MCKEON Report Released Date/Time: Aug 25, 2023 07:46 AM Reporting Lab: [address] [address] Performing Lab: [address] [address] UREA NITROGEN 45 mg/dL H 7-25 GLUCOSE 206 mg/dL H 65-100 SODIUM 138 mmol/L 135-145 POTASSIUM 4.8 mmol/L 3.5-5.0 CHLORIDE 104 mmol/L 100-110 CO2 26 meq/L 20-30 CREATININE, Serum 1.41 mg/dL H 0.50-1.40 eGFR(CKD-EPI 2020) 48 mL/min L >60 November 19, 2023 10:00 AM [facility] URIC ACID Specimen Type: SERUM No comment entered. Ordering Provider: PADMA URIBE Report Released Date/Time: Aug 29, 2023 07:37 PM Reporting Lab: [address] [address] Performing Lab: [address] [address] URIC ACID 9.2 mg/dL H 3.5-7.2 Social History: Smoking Status (Most current) and Tobacco Use (All prior to encounter date) This section includes the most current, and the historical, smoking and tobacco- related health factors from the [place] facility where the Encounter took place. Current Smoking Status This section includes the most current smoking, or tobacco-related health factor, from the [place] facility where the Encounter took place. Date/Time Current Smoking Status Comment [facility] it May 07, 2022 09:00 AM VA-TOBACCO FORMER USER [facility] Tobacco Use History This section includes a history of the smoking, or tobacco-related health factors, that were collected on or before the date of the Encounter. The data comes from the [place] facility where the Encounter took place. Date/Time Smoking Status/Tobac co Use Comment Facility May 07, 2022 09:00 AM VA-TOBACCO QUIT 15 YRS OR MORE [facility] [place] [facility] May 21, 2021 08:00 AM VA-TOBACCO FORMER USER [facility] [place] [facility] May 21, 2021 08:00 AM VA-TOBACCO QUIT 15 YRS OR MORE [facility] [place] [facility] Apr 24, 2020 11:00 AM VA-TOBACCO FORMER USER [facility] [place] [facility] Apr 24, 2020 11:00 AM VA-TOBACCO QUIT 15 YRS OR MORE [facility] [place] [facility] Jan 15, 2018 10:57 AM QUIT TOBACCO USE > 7 YEARS AGO [facility] [place] [facility] Dec 10, 2016 08:53 AM QUIT TOBACCO USE > 7 YEARS AGO [facility] [place] [facility] Jul 19, 2015 10:22 AM QUIT TOBACCO USE > 7 YEARS AGO Quit about 40 years ago. [facility] [place] [facility] November 14, 2004 10:00 AM HISTORY OF SMOKING [facility] [place] [facility] November 14, 2004 10:00 AM LIFETIME NON-SMOKER [facility] [place] [facility] Oct 25, 2003 10:34 AM HISTORY OF SMOKING [facility] [place] [facility] Oct 07, 2002 09:41 AM HISTORY OF SMOKING [facility] [place] [facility] Nov 03, 2001 10:31 AM QUIT TOBACCO USE > 7 YEARS AGO [facility] [place] [facility] Jul 31, 2001 02:15 PM NON-TOBACCO USER Quit 20 yrs ago [facility] Advance Directives: All historical and current Section Date Range: From patient's date of to the date document was created. This section includes ALL of a patient's completed or amended [place] Advance and Rescinded Directives. The entries below indicate that a directive exists for the patient, but an actual copy is not included with this document. The data comes from all [place] facilities. Date Advance Directives Provider Source Jul 03, 2023 ADVANCE DIRECTIVE RICHARD BAZZI [facility] Encounter Notes: All associated encounter notes This section contains the clinical notes associated to the Encounter. Date/Time Encounter Note(s) Provider Source November 13, 2023 04:47 PM [facility] MEDICATION MG T NOTE: LOCAL TITLE: [facility] PHARMACY MEDICATION REVIEW STANDARD TITLE: [facility] MEDICATION MGT NOTE DATE OF NOTE: NOVEMBER 13, 2023@16:47 ENTRY DATE: NOVEMBER 13, 2023@16:47:43 AUTHOR: PADMA URIBE COSIGNER: URGENCY: STATUS: COMPLETED Gonzalo Rios is an 88 year-old WHITE MALE. PMH (per problem list): CKD, peripheral neuropathy, diabetic retinopathy, CAD, OA, elevated PSA, anemia, [...] BY MOUTH WEEKLY FOR VITAMIN D DEFICIENCY * DOSE CHANGE from 100mcg BID 5) DOCUSATE NA 100MG CAP TAKE ONE [...] and indications on problem list Other Rx/OTC/Herbals: cyanocobalamin (exp) High Alert Meds: insulin aspart, insulin glargine, empagliflozin Look Alike/Sound Alike Meds: insulin aspart AND insulin glargine, acetaminophen, atorvastatin, Neurontin Duplication of Therapy: none Excessive Duration: ?multivitamin Vitals: ======= Ht: 69 in [175.3 cm] (08/28/2023 11:15) Wt: 148 lb [67.13 kg] (08/28/2023 11:15) BMI: 21.9 BP: 155/78 (10/22/2023 07:57) HR: 78 (10/22/2023 07:57) Pain: 0 (10/22/2023 07:57) Labs: ===== SERUM Na K BUN SCr 08/01/23 134 L 4.1 40 H 1.21 05/07/23 130 L 4.2 42 H 1.16 eGFR (CKD-EPI 2020): 58 L (08/01/23) CrCl (C&G, SCr 1.21, ideal BW): ~41 mL/min Microalbumin/Cr: 112.4 H mg/G (08/15/23) SERUM AST ALT 01/28/23 18 16 BLOOD [...] g/dL (01/28/23) ASSESSMENT: In the last 90 days: - No falls/hospitalizations/infe ctions noted - Per addendum to the [facility] Medication review, once-weekly high-dose vit D was started to correct deficiency. INTERVENTIONS/SUGGESTIONS: 1. Patient's medications were reviewed for [...] increase bleeding risk should a fall occur. [place] has a hx of falls with no [...] lisinopril recently increased from 5mg to 10mg daily in Aug 2023 by non-VA provider, will need to monitor closely for hyperkalemia given documented ADR, has had a recent hx of hyponatremia although Na uptrending (130 --> 134), concern for dehydration given high BUN/SCr ratio of ~33, will order repeat uric acid given diuretic regimen; recent BPs have been elevated, could consider adding CCB * HF - on CORNELL-i and SGLT2 [...] ASCVD, last LDL 65 and LFTs WNL * iron - hx of anemia? 6. Adherence Concerns: - pill organizer prefilled by [id number] * Glucerna - last filled 09/12/23; 24-day supply 7. Health Maintenance: > Immunizations: [place] is due for the following immunizations per chart review and CDC recommendations: * COVID-19 - has not received a dose of the [id number] formulation; pt refusal in May 2023 - received last dose in December 2020 * Tdap * RSV * PCV20 (shared decision making) > Tobacco/EtOH: * Please continue to periodically assess alcohol use and encourage gradual reduction in intake given older age, fall risk, and concern for withdrawal sx with abrupt discontinuation > Bladder/Bowel: * Inquire about incontinence and severity biannually. > Bone Health: * last vit D was low on vit D supplementation, but is not reflective of recent high-dose once weekly dosing * last Ca WNL, not on supplementation > Aspirin: * currently takes low-dose aspirin, hx of ASCVD 8. Patient with zero refills on: docusate, atorvastatin, insulin syringe, cholecalciferol 9. Continue to review quarterly. Recommendations: - Recommend trialing discontinuation of cyanocobalamin at this time to reduce pill burden. Appears nadine has been taking, but his Rx recently and last vit B12 was significantly elevated. Can get a repeat level in future to ensure does not become deficient. - Of note, likely only has ~2 more weekly doses of vitamin D supplementation. Would ensure the pending repeat vit D level is obtained soon to allow for appropriate dosing moving forward. - appears to be taking OTC iron supplementation, but it is unclear what type or the dosing. 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 Please discontinue if he is no longer taking. - Please assess 's willingness to receive the Tdap and RSV vaccines during next scheduled visit. The details of this review were shared with the IDT in order to assist in creating a care plan designed to provide services focused on the health and well being of the patient. Time Spent: 60 min /genoveva/ PADMA URIBE [facility] Clinical Pharmacist Practitioner Signed: 11/13/2023 18:02 Receipt Acknowledged By: 11/14/2023 16:11 /genoveva/ Millie MEEHAN HB wet chemistry analyst 11/17/2023 08:29 /genoveva/ ROBERT DAVIS RN,MSN,CHEMISTRY FACULTY MEMBER-C [facility] NURSE PRACTITIONER PADMA URIBE [facility]
--- OUTSIDE RECORDS SUMMARY | 2024-07-04 16:09 | XMS_ITS ---
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 Name Role Phone ROBERT DAVIS Primary [...] O MEDEX BRONZ E Jun 06, 2001 [id number] [phone] OMAS PATIENT ANTHEM BCBS OF CT (BLUECARD) MEDICARE SUPPLEMEN BHARGAVI PSUED O MEDEX BRONZ E Jun 06, 2001 [id number] [place] SUPPLEMEN BHARGAVI MEDEX BRONZ E Jun 06, 2001 [id number] [place] SUPPLEMEN BHARGAVI PSUED O MEDEX BRONZ E Jun 06, 2001 [id number] HUDRACHEL BOYER OMAS PATIENT BCBS OF [facility] MEDICARE SUPPLEMEN BHARGAVI PSUED O MEDEX BRONZ E Jun 06, 2001 [id number] HUDOCK,RACHEL OMAS PATIENT MEDICARE (WNR) MEDICARE (M) PART A May 07, 2001 PART A [id number] ([id number] HUDOCK,RACHEL OMAS PATIENT MEDICARE (WNR) MEDICARE (M) PART B May 07, 2001 PART B [id number] ([id number] HUDOCK,RACHEL OMAS PATIENT MEDICARE (WNR) MEDICARE (M) PART A May 07, 2001 PART A [id number] HUDOCK,RACHEL OMAS PATIENT MEDICARE (WNR) MEDICARE (M) PART B May 07, 2001 PART B [id number] HUDOCK,RACHEL OMAS PATIENT MEDICARE (WNR) MEDICARE (M) PART A May 07, 2001 PART A [id number] ([id number] HUDOCK,RACHEL OMAS PATIENT MEDICARE (WNR) MEDICARE (M) PART B May 07, 2001 PART B [id number] ([id number] HUDOCK,RACHEL OMAS PATIENT MEDICARE (WNR) MEDICARE (M) PART A May 07, 2001 PART A [id number] HUDOCK,RACHEL OMAS PATIENT MEDICARE (WNR) MEDICARE (M) PART B May 07, 2001 PART B [id number] HUDMERLIN,RACHEL OMAS PATIENT Selected Encounter This section includes the information on record at [place] for the Encounter. Date/Time Encounter Type Encounter Description Reason Provider Source November 17, 2023 08:31 AM Outpatient Encounter ANEUDY HOLLINS(PULPIT OPERATOR,SCULLION CHIEF,PA) ICD-10-CM E11.9 Type 2 diabetes mellitus without complications ROBERT DAVIS Encounter Template Text not used by [place] Assessments - Encounter Diagnoses This section includes the primary and secondary diagnoses documented for the Encounter. Date/Time Primary/Secondary Diagnosis Diagnosis Name Provider Source November 17, 2023 03:45 PM PRIMARY Type 2 diabetes mellitus without complications ROBERT DAVIS [facility] [place] [facility] November 17, 2023 03:45 PM SECONDARY Anemia, unspecified ROBERT DAVIS [place] [facility] [facility] [place] [facility] November 17, 2023 03:45 PM SECONDARY Chronic kidney disease, unspecified ROBERT DAVIS [place] [facility] [facility] [place] [facility] November 17, 2023 03:45 PM SECONDARY Essential (primary) hypertension ROBERT DAVIS [place] [facility] [facility] [place] [facility] November 17, 2023 03:45 PM SECONDARY Heart failure, unspecified ROBERT DAVIS [place] [facility] [facility] [place] [facility] November 17, 2023 03:45 PM SECONDARY Hyp hrt & chr jame dis w hrt fail and stg 1-4/unsp chr ROBERT Martini [place] [facility] [facility] [place] [facility] November 17, 2023 03:45 PM SECONDARY Hyperlipidemia, unspecified ROBERT DAVIS [place] [facility] [facility] [place] [facility] November 17, 2023 03:45 PM SECONDARY Other chronic pain ROBERT DAVIS [place] [facility] [facility] [place] [facility] Plan of Treatment: Future Appointments (+ 6 months) and Future Tests (+/- 45 days) The Plan of Treatment section includes future care activities for the patient from all [place] [facility]. This section includes future appointments and [...] 21, 2023 08:00 AM AMBULATORY - MEDICINE [place] [facility] [place] [facility] December 04, 2023 11:00 AM AMBULATORY - [place]ICINE [place] [facility] [place] [facility] Dec 23, 2023 11:00 AM AMBULATORY [place]ICINE [place] [facility] [facility] [facility] Jan 21, 2024 08:00 AM AM[place]ULATORY [place]ICINE [place] [facility] [facility] [facility] May 08, 2024 08:00 AM [facility] Lab Results: +/- 30 days of [...] Range Comment November 19, 2023 10:00 AM [facility] HEMOGLOBIN A1C PANEL Specimen Type: BLOOD Comment: [...] Aug 25, 2023 07:46 AM Reporting Lab: [facility] [address] Performing Lab: [facility] [address] HEMOGLOBIN A1C 6.8 H 4.0-5.6 November 19, 2023 10:00 AM [facility] TSH Specimen Type: SERUM No comment entered. Ordering Provider: PADMA URIBE Report Released Date/Time: Aug 29, 2023 07:37 PM Reporting Lab: [facility] [address] [address] Performing Lab: [facility] [address] [address] TSH 2.60 u[IU]/mL 0.35-5.00 November 19, 2023 10:00 AM [facility] URIC ACID Specimen Type: SERUM No comment entered. Ordering Provider: PADMA URIBE Report Released Date/Time: Aug 29, 2023 07:37 PM Reporting Lab: [facility] [address] Performing Lab: [facility] [address] [facility] [address] URIC ACID 9.2 mg/dL H 3.5-7.2 November 19, 2023 10:00 AM [facility] BASIC METABOLIC PANEL (non-fasting) Specimen Type: SERUM No comment entered. Ordering Provider: FABI MCKEON Report Released Date/Time: Aug 25, 2023 07:46 AM Reporting Lab: [facility] [address] [facility] [address] [address] Performing Lab: [address] [address] UREA NITROGEN 45 mg/dL H 7-25 GLUCOSE [...] Height Weight Body Mass Index Source November 17, 2023 03:17 PM 98.1 72 118/60 16 98 3 [facility] Social History: Smoking Status (Most current) and [...] place. Date/Time Current Smoking Status Comment [facility] it November 17, 2023 08:31 AM VA-TOBACCO FORMER USER [facility] Tobacco Use History This section includes a history of the smoking, or tobacco-related health factors, that were collected on or before the date of the Encounter. The data comes from the [place] facility where the Encounter took place. Date/Time Smoking Status/Tobac co Use Comment Facility November 17, 2023 08:31 AM [place]-TOBACCO QUIT 15 YRS OR MORE [facility] [place] [facility] May 07, 2022 09:00 AM VA-TOBACCO FORMER USER [place] [facility] [place] [facility] May 07, 2022 09:00 AM VA-TOBACCO QUIT 15 YRS OR MORE [place] [facility] [place] [facility] May 21, 2021 08:00 AM VA-TOBACCO FORMER USER [place] [facility] [place] [facility] May 21, 2021 08:00 AM VA-TOBACCO QUIT 15 YRS OR MORE [place] [facility] [place] [facility] Apr 24, 2020 11:00 AM VA-TOBACCO FORMER USER [place] [facility] [facility] [place] [facility] Apr 24, 2020 11:00 AM VA-TOBACCO QUIT 15 YRS OR MORE [place] [facility] [place] [facility] Jan 15, 2018 10:57 AM QUIT TOBACCO USE > 7 YEARS AGO [place] [facility] [place] [facility] Dec 10, 2016 08:53 AM QUIT TOBACCO USE > 7 YEARS AGO [place] [facility] [facility] [place] [facility] Jul 19, 2015 10:22 AM QUIT TOBACCO USE > 7 YEARS AGO Quit about 40 years ago. [place] [facility] [facility] [place] [facility] November 14, 2004 10:00 AM HISTORY OF SMOKING [facility] [place] [facility] November 14, 2004 10:00 AM LIFETIME NON-SMOKER [facility] [place] [facility] Oct 25, 2003 10:34 AM HIST[facility]MOKING [facility] [place] [facility] Oct 07, 2002 09:41 AM HISTORY OF SMOKING [facility] [place] [facility] Nov 03, 2001 10:31 AM QUIT TOBACCO USE > 7 YEARS AGO [place] [facility] [facility] [place] [facility] Jul 31, 2001 02:15 PM NON-TOBACCO USER Quit 20 yrs ago [facility] Advance Directives: All historical and current [...] Jul 03, 2023 ADVANCE DIRECTIVE RICHARD BAZZI [place] [facility] Encounter Notes: All associated encounter notes This section contains the clinical notes associated to the Encounter. Date/Time Encounter Note(s) Provider Source November 17, 2023 08:31 AM [facility] ATTENDING NOTE: LOCAL TITLE: [facility] PROVIDER ASSESSMENT STANDARD TITLE: [facility] ATTENDING NOTE DATE OF NOTE: NOVEMBER 17, 2023@08:31 ENTRY DATE: NOVEMBER 17, 2023@08:31:32 AUTHOR: ASHLEIGH DAVIS COSIGNER: URGENCY: STATUS: COMPLETED was seen for: [ ] Initial Review [x] Annual Review Identified by name, , address and facial recognition: Y VVC Ready: Yes [ ] No [x] HPI:88 yo M seen for annual exam. He feels well. Reports that he fell ~2 weeks ago outside when lost his balance. He was able to hold onto grill and fell on left elbow w mild abrasion. Reports feels has increased right leg weakness and notes unsteadiness. Agreeable to PT. Reports had increase right >left shoulder pain and started taking Motrin during the day and Tylenol at night w some benefit. Feels pain is better today. Reports at night he gets a lot of numbness and tingling in hands and would like to try increase in neurontin. Not interested in topical pain medications as would be difficult to apply. He is not driving at this time as lost license after hit and killed a dog w/out acknoledgement and drove home. Is in driving school w hopes to reobtain his license. [place] Providers Endo- Dr. Mckeon Renal- Dr. Jaimes last seen 02/27/22 Podiatry- Dr. Will Optometry- Dr. Forde Non-[place] Providers PCP- Dr. Chan follows [id number] Cardiology- Dr. Watson seen 08/14/23, f/u 02/27 Active problems - Computerized Problem List is the source for the followin. Hypertension 2. History of surgery 06/27/22 ACDF 3. 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 Peripheral neuropathy due to type 2 diabetes mellitus 5. Diabetic retinopathy associated with type 2 diabetes mellitus 6. Coronary artery disease 3 vessel CABG @ [facility], 03/2016. 7. Personal History of Colonic Polyps One TA, two HP polyps diverticulosis on 09/06/2010 colonoscopy 8. Osteoarthritis 9. Elevated PSA (SNOMED CT 651335955) 10. Anemia Outside PCP ordered iron studies and FIT test 11/2022 11. B12 deficiency monitoring status (SNOMED CT 960907182) 12. Other and unspecified alcohol dependence, unspecified drinking behavior (ICD 13. Chronic pain (SNOMED CT 79618036) 14. Hyperlipidemia (SNOMED CT 79102049) 15. Hypertensive heart AND chronic kidney disease with congestive heart failure 16. Diabetes mellitus (SNOMED CT 94871550) Allergies: LISINOPRIL The following VA and Non-VA [...] AT ACTIVE BEDTIME FOR NERVE PAIN 9) INSULIN,ASPART,HUMAN 100 UNIT/ML INJ INJECT 5 UNITS ACTIVE SUBCUTANEOUSLY EVERY MORNING NEEDED AND INJECT 3 UNITS AT NOON AND INJECT 8 UNITS EVERY EVENING BEFORE SUPPER 10) INSULIN,GLARGINE-YFGN 100UNIT/ML INJ INJECT 14 UNITS ACTIVE SUBCUTANEOUSLY ONCE DAILY 11) LISINOPRIL 10MG TAB TAKE ONE TABLET BY MOUTH ONCE ACTIVE DAILY FOR HIGH BLOOD PRESSURE TO CONTROL BLOOD PRESSURE 12) NUTR SUPL GLUCERNA THER NUTR SHAKE RICK [...] MOUTH ONCE DAILY ACTIVE 17 Total Medications FMH: Prostate Ca- brother Dm2- mother PSxHX: -History of surgery 06/27/22 ACDF -History of lumbar stenosis, surgical decompression in 2018 -Coronary artery disease 3 vessel CABG @ [facility], 03/2016. 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 Fair fluid intake: Has NURSE ESTHETICIAN and Friday, considering additional hours Has a walker and a cane Has a lifeline encouraged to use What brings you alvaro? driving, I want my license back Recent Falls Y(x) N( ) Recent Infections Y( ) N(x) Recent Hospitalizations Y ( ) N(x) Hospitalizations 09/2022- [facility], spine surgery 06/2022- [facility], falls, bradycardia ADLS: Needs assistance with (x)ambulation ( ) dressing ( )toileting ( )transferring (x) bathing ( ) feeding ( ) incontinence care Review of Systems: CONSTITUTIONAL: No recent weight change, no fever, no loss of appetite HEENT: hearing ok No vision change, +right blurring of vision no difficulty swallowing CARDIOVASCULAR: No cough, SOB, no chest pain, no palpitations, LEVIN GASTROINTESTINAL: No abdominal pain, no nausea, no vomiting, bowels ok GENITOURINARY: No weak urine stream, no voiding dysfunction, no nocturia DERMATOLOGICAL: No new or changing skin lesions, no rash MUSCULOSKELETAL: pain to b/l shoulders and L/S ENDOCRINE: no fatigue PSYCHIATRIC: occ anxiety, no trouble sleeping, occ depression sx, no SI NEUROLOGIC: No headache, +numbness +tingling BUE,+ leg weakness, no memory loss, no dizziness VITAL SIGNS: B/P: 118/60 (11/17/2023 15:17) Pulse: 72 (11/17/2023 15:17) Temperature: 98.1 F [36.7 C] (11/17/2023 15:17) Weight: 148 lb [67.13 kg] (08/28/2023 11:15) Height: 69 in [175.3 cm] (08/28/2023 11:15) BMI: BMI: 21.9 Pain: 3 (11/17/2023 15:17) (0-10 scale) Pulse Ox:Measurement DT POx (L/MIN)(%) 11/17/2023 15:17 98 PE: GENERAL: Pt is appropriately dressed/groomed, good eye contact. NAD HEENT: normalcephalic, thyroid nonpalpable. conj clear, Oropharynx clear, tongue moist neck supple, no JVD, no carotid bruits SKIN: warm & dry, no rash CV: RRR, nl 3/6 NOAH radiating to left carotid LUNGS: Clear to auscultation bilaterally, no use of accessory muscles ABD: NBS, soft, NT, ND, no masses or organomegaly appreciated, + soft reproducable umbilical hernia EXTREMITIES: RIBEIRO, warm, trace edema, +PP, feet/leg cool to touch 5/5 strength BUE, 3-4/ RLE, 4/5 LLE NEURO/PSYCH: A+Ox4, good historian, mood/affect appropriate, thought/speech patterns appropriately conversant without delusional content Get up and go anatalgic, unstready ( )with (x)without assistive device in home ( )cane ( ) walker Future Clinic Visits 12/04/2023 11:00 NHM/ENDOCRINE 12/23/2023 11:00 CWM/NO/PODIATRY A 02/05/2024 11:00 CWM/NO/OPTOMETRY/MERHAR A/P: Active problems - Computerized Problem List is the source for the following: >Mild depressive symptoms: Stable, monitor. -No prior diagnosis of depression per chart review - and lost license presently -Declines any mental health support including therapy or medications at this time. 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 Watson 08/14/23, has f/u 06/10/24-sooner sx ##discouraged use of Motrin. >Diabetes type 2, on insulin >Complications include peripheral neuropathy, retinopathy -Chronic, stable with hemoglobin A1c 7.3 07/30 -followed by Dr. Mckeon Declines glucose sensor using glargine 14-17 units daily (increased to 17 units) per 08/25/23 endo note. Novlog units -Up-to-date with eye/foot exam >Osteoarthritis >cervicalgia: History of surgery 06/27/22 ACDF >lumbago: History of lumbar stenosis, surgical decompression in 2018 -neuropathy ##-refer to PT ##tylenol 1gm TID PRN ##increase neurontin 300mg qhs, titrate as needed, monitor declines heat pack, topical pain medication >Soft voice quality, mild dysarthria - since neck surgery >vit d def: completed ergo ##resume vit D 2000 units daily monitor >B12 deficiency: given normal B12 and to reduce pill burden trial stopping b12, monitor >chronic macrocytic anemia, thrombocytopenia Chronic: update CBC, -Drinking 2-3 beers daily, may contribute to ongoing anemia and thrombocytopenia. -Iron studies normal in 10/2022 >hx of Elevated PSA: in distant past -discussed given age and no sx will not persue monitoring HM: [place] has complex care needs and will benefit from ongoing interdisciplinary [facility] management. Treatmen plan included shared decision-making and isconfirmed with /caregiver. All questions answered. Education provided regarding medication, including details regarding any changes. All questions answered. O2 safety addressed if applicable: ( )Yes ( )No (x)Not applicable Life sustaining treatments/Goals of care conversation: ( )LST/GOCC discussed today. See LTC/GOCC note. (x)LST/GOCC discussed today. No changes. Full code 12/16/22 ( )LST/GOCC not discussed today: REASON Cognition: (x)No concerns. ( )[place] has a dx of dementia. Education on diagnosis and supportive care needs discussed. ( )Concern of cognitive impairment without a diagnosis of dementia. (x)Counseled on importance of physical activity, healthy diet, socialization and mentally-engaging activities to optimize cognitive functioning. Functional independence: (x)ADL assistance is needed. [facility] team to work w /caregiver to maxamize functional independence. This may include caregiver training, adaptive equipment, refer for TELECOMMUNICATIONS SPECIALIST. ( )No ADL assistance needed. IM - Immunizations declinesRSV ADMINISTERED Immunization Series Date Facility Reaction Info COVID-19 (PFIZER), MRNA, LNP-S, * 2 12/08/2020 Outside H* COVID-19 (PFIZER), MRNA, LNP-S, * 1 11/07/2020 Outside H* DTAP, UNSPECIFIED FORMULATION 03/25/2012 [place] [facility] * <C> INFLUENZA, HIGH-DOSE, QUADRIVALE* 03/26/2023 [place] [facility] * PNEUMOCOCCAL CONJUGATE PCV 13 10/03/2014 [place] [facility] * PNEUMOCOCCAL, UNSPECIFIED FORMUL* 02/10/2003 [place] [facility] * TD (ADULT), 5 LF TETANUS TOXOID,* 11/30/2021 [place] [facility] * ZOSTER LIVE 04/15/2012 [place] [facility] * ZOSTER RECOMBINANT 2 12/11/2017 [place] [facility] * ZOSTER RECOMBINANT 1 10/03/2017 [place] [facility] * Review of medical records: min Time spent w patient including shared decision making: min Post visit documentation: min F/U 6-12 months, sooner PRN. No barriers; Patient understands and agrees to current treatment plan. Outpt. Medication Reconciliation: Outpatient Medication Reconciliation No Discrepancies Found - Med Rec Completed. The patient's medication list/medication history was compared with CPRS and reviewed with the patient/caregiver and reconciled. The patient/caregiver was instructed to update this list, discard old lists, and take this list to their next appointment, whether with a VA or non-VA provider. Any changes in medications and any medications discontinued are documented in this note. Tobacco Use Screening: The patient is a former tobacco user. The patient quit fifteen or more years ago. /genoveva/ ROBERT DAVIS RN,MSN,KITCHEN CLERK-C [facility] NURSE PRACTITIONER Signed: 11/17/2023 15:45 Receipt Acknowledged By: 11/17/2023 17:14 /genoveva/ Millie DUENASN [facility] grinder and honer operator automatic LATASHA DAVIS [facility] CHARI [facility]
--- OUTSIDE RECORDS SUMMARY | 2024-07-04 16:09 | XMS_ITS ---
Author Name [facility] [place] Organization [facility] [place] Address [address] [place] [address] Care Team Providers Care Curatorial Assistant Name Role Phone ROBERT DAVIS Primary Care [...] O MEDEX BRONZ E Jun 06, 2001 [id number] [phone] OMAS PATIENT ANTHEM BCBS OF CT (BLUECARD) MEDICARE SUPPLEMEN BHARGAVI PSUED O MEDEX BRONZ E Jun 06, 2001 [id number] OMAS PATIENT BCBS OR MEDICARE SUPPLEMEN BHARGAVI MEDEX BRONZ E Jun 06, 2001 [id number] OMAS PATIENT BCBS OR MEDICARE SUPPLEMEN BHARGAVI PSUED O MEDEX BRONZ E Jun 06, 2001 [id number] HUDRACHEL BOYER [place] PATIENT [place] MEDICARE SUPPLEMEN BHARGAVI PSUED O MEDEX BRONZ E Jun 06, 2001 [id number] HUDOCK,RACHEL OMAS PATIENT MEDICARE (WNR) MEDICARE (M) PART A May 07, 2001 PART A [id number] ([id number] HUDOCK,RACHEL OMAS PATIENT MEDICARE (WNR) MEDICARE (M) PART B May 07, 2001 PART B [id number] ([id number] HUDOCK,RACHEL OMAS PATIENT MEDICARE (WNR) MEDICARE (M) PART A May 07, 2001 PART A [id number] HUDOCK,RACHEL OMAS PATIENT MEDICARE (WNR) MEDICARE (M) PART B May 07, 2001 PART B [id number] ([id number] HUDOCK,RACHEL OMAS PATIENT MEDICARE (WNR) MEDICARE () PART A May 07, 2001 PART A [id number] ([id number] HUDOCK,RACHEL OMAS PATIENT MEDICARE (WNR) MEDICARE (M) PART B May 07, 2001 PART B [id number] ([id number] HUDOCK,RACHEL OMAS PATIENT MEDICARE (WNR) MEDICARE (M) PART A May 07, 2001 PART A [id number] HUDOCK,RACHEL OMAS PATIENT MEDICARE (WNR) MEDICARE (M) PART B May 07, 2001 PART B [id number] HUDMERLIN,RACHEL OMAS PATIENT Selected Encounter This section includes the information on record at [place] for the Encounter. Date/Time Encounter Type Encounter Description Reason Provider Source Oct 22, 2023 11:00 AM MEASURE BLOOD OXYGEN LEVEL [facility] Nursing (RN / LP) ICD-10-CM R68.89 Other general symptoms and signs PHILIPPE RASCON Encounter Template Text not used by [place] Assessments - Encounter Diagnoses This section includes the primary and secondary diagnoses documented for the Encounter. Date/Time Primary/Secondary Diagnosis Diagnosis Name Provider Source Oct 23, 2023 08:16 AM PRIMARY Other general symptoms and signs LUTHER,PHILIPPE E [facility] Plan of Treatment: Future Appointments (+ 6 months) and Future Tests (+/- 45 days) The Plan of Treatment section includes future care activities for the patient [facility]. This section includes future appointments [...] 21, 2023 08:00 AM AMBULATORY - MEDICINE [facility] December 04, 2023 11:00 AM AMBULATORY MEDICINE [facility] Dec 23, 2023 11:00 AM AMBULATORY MEDICINE [facility] Jan 21, 2024 08:00 AM AMBULATORY MEDICINE [facility] Lab Results: +/- 30 days of [...] Range Comment November 19, 2023 10:00 AM [facility] HEMOGLOBIN A1C PANEL Specimen Type: BLOOD Comment: [...] Aug 25, 2023 07:46 AM Reporting Lab: [address] [address] Performing Lab: [address] [address] HEMOGLOBIN A1C 6.8 H 4.0-5.6 November 19, 2023 10:00 AM [facility] TSH Specimen Type: SERUM No comment entered. Ordering Provider: PADMA URIBE Report Released Date/Time: Aug 29, 2023 07:37 PM Reporting Lab: [facility] [address] [facility] [address] Performing Lab: [address] [address] TSH 2.60 u[IU]/mL 0.35-5.00 November 19, 2023 10:00 AM [facility] URIC ACID Specimen Type: SERUM No comment entered. Ordering Provider: PADMA URIBE Report Released Date/Time: Aug 29, 2023 07:37 PM Reporting Lab: [facility] [address] [facility] [address] Performing Lab: [address] [address] URIC ACID 9.2 mg/dL H 3.5-7.2 November 19, 2023 10:00 AM [facility] BASIC METABOLIC PANEL (non-fasting) Specimen Type: SERUM No comment entered. Ordering Provider: FABI MCKEON Report Released Date/Time: Aug 25, 2023 07:46 AM Reporting Lab: [address] [address] Performing Lab: [address] [address] UREA NITROGEN 45 mg/dL H 7-25 GLUCOSE [...] Pain Height Weight Body Mass Index Source Oct 22, 2023 07:57 AM 98 78 155/78 97 0 [facility] Social History: Smoking Status (Most current) [...] took place. Date/Time Current Smoking Status Comment [facility] May 07, 2022 09:00 AM [facility] Tobacco Use History [...] YRS OR MORE [facility] May 21, 2021 08:00 AM VA-TOBACCO FORMER USER [facility] May 21, 2021 08:00 AM VA-TOBACCO QUIT 15 YRS OR MORE [facility] Apr 24, 2020 11:00 AM VA-TOBACCO FORMER USER [facility] Apr 24, 2020 11:00 AM VA-TOBACCO QUIT 15 YRS OR MORE [facility] Jan 15, 2018 10:57 AM QUIT TOBACCO USE > 7 YEARS AGO [facility] Dec 10, 2016 08:53 AM QUIT TOBACCO USE > 7 YEARS AGO [facility] Jul 19, 2015 10:22 AM QUIT TOBACCO USE > 7 YEARS AGO Quit about 40 years ago. [facility] November 14, 2004 10:00 AM HISTORY OF SMOKING [facility] November 14, 2004 10:00 AM LIFETIME NON-SMOKER [facility] Oct 25, 2003 10:34 AM HISTORY OF SMOKING [facility] Oct 07, 2002 09:41 AM H[facility]MO[facility] Nov 03, 2001 10:31 AM QUIT TOBACCO USE > 7 YEARS AGO [facility] Jul 31, 2001 02:15 PM NON-TOBACCO USER Quit 20 yrs ago [facility] Advance Directives: All historical and current Section [...] Jul 03, 2023 ADVANCE DIRECTIVE RICHARD BAZZI [facility] Encounter Notes: All associated encounter notes This section contains the clinical notes associated to the Encounter. Date/Time Encounter Note(s) Provider Source Oct 22, 2023 08:03 AM HB NURSING NOTE: LOCAL TITLE: [facility] RN PROGRESS NOTE STANDARD TITLE: HB NURSING NOTE DATE OF NOTE: OCT 22, 2023@08:03 ENTRY DATE: OCT 23, 2023@08:03:27 AUTHOR: AMAN RASCON EXP COSIGNER: URGENCY: STATUS: COMPLETED Nursing Progress [...] MOUTH ONCE DAILY ACTIVE 18 Total Medications Time spent 30 minutes for general signs and symptoms Identified by DL and NURSING SUMMARY: 88 yo seen by [facility] RN CM for general health assessment, chronic disease managament and to review preventative health remindser. Patient is alert, pleasant and participating in visit. BP 158/78 HR 78 He has not taken his morning meds-done so dirong visit. Blood sugars fasting between 100 and 205 before breakfast. Taking insulins has ordered lantus 14u in morning and novolog before breakfast lung and dinner Falls prevention education provided Blood Pressure: 155/78 (10/22/2023 07:57) Pulse: 78 (10/22/2023 07:57) Respiration: 16 (09/12/2023 11:00) Temperature: 98 F [36.7 C] (10/22/2023 07:57) Pain Score: 0 (10/22/2023 07:57) EXAMINATION: Lungs: clear Edema: none HR: 78 Bowel/Bladder: reports no diarrhea constipation, no LUTS no nocutria Skin: intact no open areas Home Safety FALLS NO INFECTIONS NO ER/HOSPITALIZATIONS Teaching/goals: Remain home living alone as long as it is safe to do so Patient verbalizes understanding to above and will call with any concerns or changes in condition. For emergent care call 911. Plan for next visit: NHV per HBSON RN CM every 1-6 weeks Bwdtxe-uk-cumg today but before meds, /es/ Aman Rascon RN BSN [facility] PRICING MANAGER Signed: 10/23/2023 08:17 [facility]
--- OUTSIDE RECORDS SUMMARY | 2024-07-04 16:09 | XMS_ITS | Encounter Summary ---
Author Name [facility] [place] Organization [facility] [place] Address [address] [place] [address] Care Team Providers Care Electrician Research Name Role Phone ROBERT DAVIS Primary Care [...] O MEDEX BRONZ E Jun 06, 2001 [id number] [phone] OMAS PATIENT ANTHEM BCBS OF CT (BLUECARD) MEDICARE SUPPLEMEN BHARGAVI PSUED O MEDEX BRONZ E Jun 06, 2001 [id number] [phone] OMAS PATIENT BCBS PR MEDICARE SUPPLEMEN BHARGAVI MEDEX BRONZ E Jun 06, 2001 [id number] [facility] OMAS PATIENT BCBS PR MEDICARE SUPPLEMEN BHARGAVI PSUED O MEDEX BRONZ E Jun 06, 2001 [id number] [phone] HUDRACHEL BOYER OMAS PATIENT BCBS OF [place] MEDICARE SUPPLEMEN BHARGAVI PSUED O MEDEX BRON E Jun 06, 2001 [id number] [phone] HUDOCK,RACHEL OMAS PATIENT MEDICARE (WNR) MEDICARE (M) PART A May 07, 2001 PART A [id number] HUDOCK,RACHEL OMAS PATIENT MEDICARE (WNR) MEDICARE (M) PART B May 07, 2001 PART B [id number] HUDOCK,RACHEL OMAS PATIENT MEDICARE (WNR) MEDICARE (M) PART A May 07, 2001 PART A [id number] HUDOCK,RACHEL OMAS PATIENT MEDICARE (WNR) MEDICARE (M) PART B May 07, 2001 PART B [id number] HUDMERLIN,RACHEL OMAS PATIENT MEDICARE (WNR) MEDICARE (M) PART A May 07, 2001 PART A [id number] HUDOCK,RACHEL OMAS PATIENT MEDICARE (WNR) MEDICARE (M) PART B May 07, 2001 PART B [id number] HUDOCK,RACHEL OMAS PATIENT MEDICARE (WNR) MEDICARE (M) PART A May 07, 2001 PART A [id number] HUDOCK,RACHEL OMAS PATIENT MEDICARE (WNR) MEDICARE (M) PART B May 07, 2001 PART B [id number] HUDMERLIN,RACHEL OMAS PATIENT Selected Encounter This section includes the information on record at [place] for the Encounter. Date/Time Encounter Type Encounter Description Reason Provider Source November 20, 2023 10:17 AM CASE MANAGEMENT [facility] - TELEPHONE CLERK ICD-10-CM Z65.9 Problem related to unspecified psychosocial circumstances Paulie BAZZI E Encounter Template Text not used by [place] Assessments - Encounter Diagnoses This section includes the primary and secondary diagnoses documented for the Encounter. Date/Time Primary/Secondary Diagnosis Diagnosis Name Provider Source November 20, 2023 10:44 AM PRIMARY Problem related to unspecified psychosocial circumstances Paulie BAZZI [facility] Plan of Treatment: Future Appointments (+ 6 months) and Future Tests (+/- 45 days) The Plan of Treatment section includes future care activities for the patient from all [place] [facility]. This section includes future appointments and future orders which are active, pending or scheduled. Future Appointments This section includes appointments that were scheduled to occur 6 months from the date of the Encounter, up to a maximum of 20 appointments. The data comes from all [facility] facilities. Appointment Date/Time Appointment Type Appointme nt Facility Name November 21, 2023 08:00 AM AMBULATORY - MEDICINE [facility] December 04, 2023 11:00 AM [facility] Dec 23, 2023 11:00 AM [facility] Jan 21, 2024 08:00 AM AMBULATORY MEDICINE [facility] May 08, 2024 08:00 AM AMBULATORY MEDICINE [facility] Lab Results: +/- 30 days [...] Range Comment November 19, 2023 10:00 AM [facility] HEMOGLOBIN A1C PANEL Specimen Type: BLOOD [...] Aug 25, 2023 07:46 AM Reporting Lab: [address] [address] Performing Lab: [address] [address] HEMOGLOBIN A1C 6.8 H 4.0-5.6 November 19, 2023 10:00 AM [facility] TSH Specimen Type: SERUM No comment entered. Ordering Provider: PADMA URIBE Report Released Date/Time: Aug 29, 2023 07:37 PM Reporting [facility] [address] [address] Performing Lab: [address] [address] TSH 2.60 u[IU]/mL 0.35-5.00 November 19, 2023 10:00 AM [facility] URIC ACID Specimen Type: SERUM No comment entered. Ordering Provider: PADMA URIBE Report Released Date/Time: Aug 29, 2023 07:37 PM Reporting Lab: [address] [address] Performing Lab: [address] [address] URIC ACID 9.2 mg/dL H 3.5-7.2 November 19, 2023 10:00 AM [facility] BASIC METABOLIC PANEL (non-fasting) Specimen Type: SERUM No comment entered. Ordering Provider: FABI MCKEON Report Released Date/Time: Aug 25, 2023 07:46 AM Reporting Lab: [address] [address] [facility] [address] UREA NITROGEN 45 mg/dL H 7-25 GLUCOSE [...] place. Date/Time Current Smoking Status Comment Facil it November 17, 2023 08:31 AM VA-TOBACCO FORMER USER [facility] [place] [facility] Tobacco Use History This section includes a history of the smoking, or tobacco-related health factors, that were collected on or before the date of the Encounter. The data comes from the [place] facility where the Encounter took place. Date/Time Smoking Status/Tobac co Use Comment Facility November 17, 2023 08:31 AM VA-TOBACCO QUIT 15 YRS OR MORE [facility] [place] [facility] May 07, 2022 09:00 AM VA-TOBACCO FORMER USER [facility] [place] [facility] May 07, 2022 09:00 AM VA-TOBACCO QUIT 15 YRS OR MORE [facility] [place] [facility] May 21, 2021 08:00 AM VA-TOBACCO FORMER USER [facility] [place] [facility] May 21, 2021 08:00 AM VA-TOBACCO QUIT 15 YRS OR MORE [facility] [place] [facility] Apr 24, 2020 11:00 AM VA-TOBACCO FORMER USER [facility] [place] [facility] Apr 24, 2020 11:00 AM VA-TOBACCO QUIT 15 YRS OR MORE [facility] [place] [facility] Jan 15, 2018 10:57 AM QUIT TOBACCO USE > 7 YEARS AGO [facility] [place] [facility] Dec 10, 2016 08:53 AM QUIT TOBACCO USE > 7 YEARS AGO [facility] [place] [facility] Jul 19, 2015 10:22 AM QUIT TOBACCO USE > 7 YEARS AGO Quit about 40 years ago. [facility] [place] [facility] November 14, 2004 10:00 AM HISTORY OF SMOKING [facility] [place] [facility] November 14, 2004 10:00 AM LIFETIME NON-SMOKER [facility] [place] [facility] Oct 25, 2003 10:34 AM HISTORY OF SMOKING [facility] [place] [facility] Oct 07, 2002 09:41 AM HISTORY OF SMOKING [facility] [place] [facility] Nov 03, 2001 10:31 AM QUIT TOBACCO USE > 7 YEARS AGO [facility] Jul 31, 2001 02:15 PM NON-TOBACCO USER Quit 20 yrs ago [facility] Advance Directives: All historical and current Section Date Range: From patient's date of to the date document was created. This section includes ALL of a patient's completed or amended [place] Advance and Rescinded Directives. The entries below indicate that a directive exists for the patient, but an actual copy is not included with this document. The data comes from all [place] facilities. Date Advance Directives Provider Source Jul 03, 2023 ADVANCE DIRECTIVE RICHARD BAZZI [facility] Encounter Notes: All associated encounter notes This section contains the clinical notes associated to the Encounter. Date/Time Encounter Note(s) Provider Source November 20, 2023 09:30 AM [facility] NOTE: LOCAL TITLE: [facility] SOCIAL WORK ASSESSMENT STANDARD TITLE: [facility] NOTE DATE OF NOTE: NOVEMBER 20, 2023@09:30 ENTRY DATE: NOVEMBER 20, 2023@10:17:45 AUTHOR: RICHARD BAZZI EXP COSIGNER: URGENCY: STATUS: COMPLETED WHAT MATTERS What Matters was addressed at this visit. Comment: To be able to drive again. MENTATION Depression was addressed at this visit. Comment: Negative PHQ-2 screen. MENTATION Dementia was addressed at this visit. Comment: [facility] Exam score WNL MENTATION Delirium was addressed at this visit. Comment: No s/s of delirium observed. 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 Length of visit: 45 minutes CURRENT LIVING ARRANGEMENTS [X] Own Home [ ] Apartment/rented house [ ] Chcf Home [ ] Mcc [ ] Assisted Living [ ] Home of Significant Other [ ] Home of other family members [ ] Home of friends [ ] Other: Patient lives with: [X] Alone [ ] With Spouse [ ] With Adult Child [ ] With Significant Other [ ] With a Friend [ ] Other: Home environment: [ ] Cluttered [X] Clean/tidy [ ] Lacks appropriate heating/plumbing/cooking/ food storage [ ] Unsanitary [ ] Strong Odor [ ] Fall risks [ ] Steps to enter/or inside home [ ] Other: PATIENT'S PRESENTATION/MENTAL STATUS ASSESSMENT: 1. ORIENTATION: Oriented to: [X] Person [X] Place [X] Time [X] Situation [X] Alert [ ] Lethargic [ ] Confused [ ] Memory Deficits [ ] Other: 2. BEHAVIORS: [X] Socially appropriate [ ] Aggressive [ ] Yelling [ ] Withdrawn [ ] Delusional [ ] Threatening [ ] Wandering [ ]Other: 3. AFFECT: [X] Full range affect [ ] Euphoric [ ] Flat [ ] Calm [ ] Tense [ ] Anxious [ ] Labile [ ] Hostile [ ] Angry [ ] Congruent with mood [ ] Incongruent with mood 4. MOOD: [ ] Good [X] Fair [ ] Irritable [ ] Tearful/crying [ ] Hopeless [ ] Guilty 5. HYGIENE: [X] Good [ ] Well-groomed [ ] Unkempt [ ] Body odor 6. DRESSED: [X]Casually [ ] Professional casual [ ] Neat [ ] Disheveled 7. 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 He has 2 sons who live locally (within a mile from his home) that he sees regularly. His son Thomas comes daily to bring him his newspaper and mail and assist around house when needed, and son Gonzalo comes 2-3x week to check on him. He takes him to a club he belongs to in [place] on Friday afternoons from 1-5 where he spends the afternoon with friends. His daughter in law is a nurse and prefills his meds weekly. She'll also bring over food sometimes and assists with bill paying. Formal supports: [X]Homemaker/Home Health Aide [ ]Inpatient/in-home respite [ ]Adult Day Health Care [ ]VNA/Skilled Home Health Care [ ]Elder Services [ ]Meals on Wheels [ ]Transportation [X]Personal Emergency Response System [ ]Home Oxygen [ ]Other: OXYGEN SAFETY [X]N/A [ ]No unsafe behavior observed [ ]Unsafe behavior observed ([facility] Home Oxygen Safety Checklist must be completed if unsafe behavior observed) SUBSTANCE USE Alcohol use: 2-3 beers day Nicotine use: None Other: Is interested in substance abuse/smoking cessation treatment? [ ]Yes [X]No PSYCHIATRIC HISTORY: No reported history of mental health issues or treatment. CRIMINAL HISTORY: Do you have a legal history(arrests,incarcera tions,probation,parole,di vorce,child custody issues)? No I/ADL FUNCTIONAL ASSESSMENT Cabrera Index of [place] in Activities of Daily Living: Bathing: [ ] Independent (1) * Bathes self completely or needs help in bathing only a single part of the body such as the back, genital area or disabled extremity. [X] Dependent (0) * Needs help with bathing more than one part of the body, getting in or out of the tub or shower. Requires total bathing. Dressing: [ ] Independent (1) * Gets clothes from closets and drawers and puts on clothes and outer garments complete with fasteners. May have help tying shoes. [X] Dependent (0) * Needs help with dressing self or needs to be completely dressed. Toileting: [X] Independent (1) * Goes to toilet, gets on and off, arranges clothes, cleans genital area without help. [ ] Dependent (0) * Needs help transferring to the toilet, cleaning self or uses bedpan or commode. Transferring: [X] Independent (1) * Independent (1) - Moves in and out of bed or chair unassisted. Mechanical transferring aides are acceptable. [ ] Dependent (0) * Needs help in moving from bed to chair or requires a complete transfer. Continence: [X] Independent (1) * Exercises complete self-control over urination and defecation. [ ] Dependent (0) * Is partially or totally incontinent of bowel or bladder. Feeding: [X] Independent (1) * Gets food from plate into mouth without help. Preparation of food may be done by another person. [ ] Dependent (0) * Needs partial or total help with feeding or requires parenteral feeding. Total Points = 4 - Score Explanation: 6 = High (patient independent), 0 = Low (patient very dependent) RADHA-AMINA INSTRUMENTAL ACTIVITIES OF DAILY LIVING: Telephone use: [X](1) Operates a telephone via own initiative; looks up and dials numbers, etc. [ ](1) Dials a few well known numbers [ ](1) Answers phone but does not dial [ ](0) Does not use telephone at all Shopping: [ ](1) Takes care of all shopping needs independently [ ](0) Shops independently for small purchases [X](0) Needs to be accompanied on any shopping trip [ ](0) Completely unable to shop Meal Preparation: [ ](1) Plans, prepares, and serves adequate meals independently [ ](0) Prepares adequate meals if supplied with ingredients [X](0) Heats, serves, and prepares meals but does not maintain adequate diet [ ](0) Needs to have all meals prepared and served Housekeeping: [ ](1) Maintains house alone or with occasional assistance [ ](1) Performs light daily tasks such as dishwashing, bed making [ ](1) Performs light daily tasks but cannot maintain acceptable level of cleanliness. [ ](1) Needs help with all home maintenance tasks [X](0) Does not participate in any housekeeping tasks Laundry: [ ](1) Does personal laundry completely [ ](1) Launders small items; rinses stockings, etc. [X](0) All laundry must be done by others Transportation: [ ](1) Travels independently on public transportation or drives own car [ ](1) Arranges own travel via taxi, but not otherwise use public transportation program [X](1) Travels only when accompanied by others [ ](0) Does not travel at all Medication mgmt: [ ](1) Is responsible for taking correct medication in correct dose, at correct time [X](0) Takes responsibility if medication is prepared in advance in separate dosages [ ](0) Is not capable of dispensing medications Financial mgmt: [ ](1) Manages financial matters independently (budgets, writes own checks, pays rent) [X](1) Manages day to day purchases but needs help with banking, major purchases, etc [ ](0) Incapable of handling money Do you have VA contracted Home Health Aide Services?Yes,(explain) Agency Providing BLENDER CONVEYOR OPERATOR Services: [facility] Are you satisfied with your personal care provided by the agency? YES Do you feel safe with the personal care services provided by the agency? YES FINANCIAL STATUS Income sources: [ ] VA pension [ ] Chcf [X] [place] compensation [ ] [place] Annuity [ ] Aid & Attendance [ ] [address] [X] SS Chcf [ ] SS Disability [X] Private pension [ ] SSI [ ] Other: Income amount: Undisclosed Financial hardship reported: [ ] Yes [X] No Who Manages Finances: and his daughter in law, who helps write out checks. Copay status: Outpatient Visits:[X] Exempt [ ] Non-Exempt Medications: [ ] Exempt [X] Non-Exempt Insurance: [ ] Medicare A only [X] Medicare A and B [ ] Medicare HMO: [ ] Medicaid: [X] Supplemental insurance to Medicare: [place] of [place] [ ] Other Private insurance: ADVANCE DIRECTIVE: Does the [place] have: VA Advance directives on file? [ ] Yes [X] No State Authorized Health Care Proxy Document on file? [X] Yes [ ] No If yes, was document reviewed with ? [X] Yes [ ] No [X] Current [ ] Needs to be updated HCP:Gonzalo Vega Jr. If no , were advanced directives discussed with [place]? [ ] Yes [ ] No Legal guardian? [ ] Yes [X] No Power of Director [employer]? [ ] Yes [X] No Conservator/Fiduciary? [ ] Yes [X] No Is there evidence of abuse or neglect? [ ] Yes [X] No ACTIVITIES/INTERESTS: Watching television, reading the newspaper, going to the club weekly to spend afternoon with friends, grilling food, spending time on the back deck. 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 [ ] Yes [X] No If yes, describe: COGNITIVE ASSESSMENT Is Vet a poor historian ? [ ] Yes [X] No Defers to a caregiver/family member? [ ] Yes [X] No Expresses concern over memory? [ ] Yes [X] No Concerns identified: Presence of difficult behaviors? [ ] Yes [X] No If yes, please describe: Does Vet have a diagnosis of cognitive impairment? [ ] Yes [X] No Dx: Hx of neuropsych testing? If yes, dates/location: Cognitive Screening: [X] Is Indicated [ ] Is Not Indicated [ ] Unable To Complete [ ] Declined by Vet Further cognitive evaluation requested by [place]: [ ] Yes [ ] No The Blessed Orientation Memory Concentration (BOMC) Test: __ SCORE 0 1.) What year is it now? 0 2.) What month is it now? 0 3.) About what time is it? 0 4.) Count backwards 20 to 1. 0 5.) Say the months in reverse order (start with June) 0 6.) Repeat the memory phrase. (1)Nik 0 (1)Rebel 0 (1)42 0 (1)Market 0 (1)Conover 0 Score & Interpretation: 0 -- WNL CAREGIVER STATUS: Does the [place] have a caregiver who provides substantive assistance on an ongoing basis for the in the [place]'s place of residence? (not including paid professional caregivers) No = Patient does not have Caregiver SOCIAL WORK SUMMARY: /Caregiver has been provided with information regarding: VA AND COMMUNITY RESOURCES [ ] VA Home Health Aide Services [ ] Elder Care Services [ ] Inpatient/In-Home Respite [X] Adult Day Health [ ] Hospice [ ] Transportation [ ] Guardian Alert/Personal Emergency Response System [X] Financial Dealers Care: [ ] Eligible for VA contracted fdc. [X] Not eligible for VA contracted fdc. Advised [place] [facility] care would fall to private pay or Medicaid. [ ] [facility] [ ] Housing: [ ] Assisted Living [ ] Independent Living [ ] Other: [ ] Meals on Wheels [ ] Medicaid/Medicare/Shine for private insurance options [X] VA Benefits/Compensation [ ] Caregiver support group [ ] Outpatient individual therapy [ ] Other: AUTOMATED CUTTING MACHINE OPERATOR PLANNING [X] Patient to stay at home with assistance. [ ] Patient willing to consider SNF. [ ] Declined to discuss intermediate frame tender planning. ALTERNATIVE PLACEMENT/EMERGENCY PLAN [ ] VA Contract Half-Way Respite [ ] In-home Respite [ ] Alternative family members providing care [X] can remain home safely short-term. [ ] is independent and does not require a caregiver. [ ] /Caregiver declined. SW will continue education placement plans for urgent/emergent care on an annual basis. ASSESSMENT NARRATIVE: Mr. Vega was seen today for his annual assessment. He is an 88 year old [place] who lives alone in a one level private home in [place]. relies primarily on his trenching machine operator for his care. He has 2 sons who live locally (within a mile from his home) that he sees regularly. His son Thomas comes daily to bring him his newspaper and mail and assist around house when needed, and son Gonzaol comes 2-3x week to check on him. He takes him to a club he belongs to in [place] on Friday afternoons from 1-5 where he spends the afternoon with friends. His daughter in law is a nurse and prefills his meds weekly. She'll also bring over food sometimes and assists with bill paying. Currently 's primary focus is getting his license back. He's taking drivers license examiner's lessons and will retake his driving exam at the [facility] once completed. He hit and killed a dog, leading to the loss of his license. He feels he can drive safely and is motivated to get the license back. He misses being able to go out on his own. He gets out at least a few times per week with BLENDER CONVEYOR OPERATOR for shopping, errands with son, and going to the club weekly for socialization with friends. He reports feeling down several times in the last 2 weeks as a result of feeling isolated and missing the freedom to go out when he wants. He had someone he was seeing whom he met at a local bar sometimes but just talks on the phone with her now and isn't interested in having her come over to his house. Gaurang is not interested in MOW or ADH. He feels he can prepare his own food and is not enjoying grilling on the back deck. He also stated he's not a group person and doesn't want to go to the [facility] or [facility]. He has Guardian Alert for emergencies. Gaurang is alert and oriented x4 with some reported occasional short term memory impairment, which was not evident today. [facility] Exam score was 0 falling WNL. No social work needs identified today. Gaurang appears to have a good support system. SOCIAL WORK PLAN OF CARE: --Provide psychosocial support as needed. --Next annual assessment to be conducted November 2024 unless otherwise indicated. Sexual Orientation: The patient thinks of their sexual orientation as: Straight or Heterosexual RHS Screen: RHS Screen Session Format: Face to Face Environmental Check Upon inquiry, the individual reports that the environment is safe to proceed. Informed Consent to Screen and Document The individual consents to proceed with screening. The individual consents to documentation of responses. PRIMARY SCREEN: In the past 12 months, how often did a current or former intimate partner (e.g., boyfriend, girlfriend, , , sexual partner): 1. Scream or curse at you Never 2. Insult or talk down to you Never 3. Threaten you with harm Never 4. Physically hurt you Never 5. Force or pressure you to have sexual contact against your will, or when you were unable to say no Never ?? The HITS tool (items 1-4 above) is US copyright protected by Hiram Khan MD, and the user has full rights to use it throughout the [place] system. PRIMARY SCREEN RESULT: The Primary Screen is NEGATIVE. The individual answered never to all forms of IPV above (i.e., answered never to all 5 items) The individual accepts education and/or resources: Yes - Offered verbal universal education about IPV EDUCATION: The individual indicated readiness to learn. Education offered during this session as noted above. The individual indicated understanding by asking relevant questions and making appropriate comments. No barriers to learning were observed or identified. Advance Directive Screen MH AD: Patient has an Advance Directive on file at this [facility]. No updates are needed at this time. The patient received education about Advance Directives and written notification of his/her rights. Suicide Screen: C-SSRS Screening [place]-Suicide Severity Rating Scale (C-SSRS Screener) 1. Over the past month, have you wished you were or wished you could go to sleep and not wake up? No 2. Over the past month, have you had any actual thoughts of killing yourself? No 3. Over the past month, have you been thinking about how you might do this? Response not required due to responses to other questions. 4. Over the past month, have you had these thoughts and had some intention of acting on them? Response not required due to responses to other questions. 5. Over the past month, have you started to work out or worked out the details of how to kill yourself? Response not required due to responses to other questions. 6. If yes, at any time in the past month did you intend to carry out this plan? Response not required due to responses to other questions. 7. In your lifetime, have you ever done anything, started to do anything, or prepared to do anything to end your life (for example, collected pills, obtained a gun, gave away valuables, went to the roof but didn't jump)? No 8. If YES, was this within the past 3 months? Response not required due to responses to other questions. Homelessness/Food Insecurity Screen: In the past 2 months, have you been living in stable housing that you own, rent, or stay in as part of a household? Yes - Living in stable housing. Are you worried or concerned that in the next 2 months you may NOT have stable housing that you own, rent, or stay in as part of a household? No - Not worried about housing near future The reports the following: Within the past 12 months, you worried whether your food would run out before you got money to buy more. Never true Within the past 12 months, the food you bought just didn't last and you didn't have money to get more. Never true Depression Screening: Perform PHQ-2 A PHQ-2 screen was performed. The score was 1 which is a negative screen for depression. Over the past two weeks, how often have you been bothered by the following problems? 1. Little interest or pleasure in doing things Not at all 2. Feeling down, depressed, or hopeless Several days Alcohol Use Screen (AUDIT-C): Alcohol Screen: SCREEN FOR ALCOHOL (AUDIT-C) An alcohol screening test (AUDIT-C) was negative (score=4). 1. How often did you have a drink containing alcohol in the past year? Consider a drink to be a 12 ounce can or bottle of regular beer, 8 ounces of malt liquor, a 5 ounce glass of table wine, or a 1.5 ounce shot of liquor (like scotch, gin, or vodka). Four or more times a week 2. How many drinks containing alcohol did you have on a typical day when you were drinking in the past year? One or two drinks 3. How often did you have six or more drinks on one occasion in the past year? Never /es/ MARY GARCIA [facility] Systems Technologist Signed: 11/20/2023 10:44 RICHARD BAZZI DE [facility] TRElizabeth [facility]
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
--- OUTSIDE RECORDS SUMMARY | 2024-07-04 16:09 | XMS_ITS ---
Author Name [facility] [facility] [place] [facility] [place] Address [address] [place] [address] Care Team Providers Care Touch Up Worker Name Role Phone ROBERT DAVIS Primary [...] O MEDEX BRONZ E Jun 06, 2001 [id number] OMAS PATIENT ANTHEM BCBS OF [place] (BLUECARD) MEDICARE SUPPLEMEN BHARGAVI PSUED O MEDEX BRONZ E Jun 06, 2001 [id number] OMAS PATIENT BCBS [place] MEDICARE SUPPLEMEN BHARGAVI MEDEX BRONZ E Jun 06, 2001 [id number] OM[place] PATIENT [place] MED[place] SUPPLEMEN BHARGAVI PSUED O MEDEX BRONZ E Jun 06, 2001 [id number] [phone] HUDRACHEL BOYER OM[place] PATIENT [place] MEDICARE SUPPLEMEN BHARGAV[place] PSUED O MEDEX BRONZ E Jun 06, 2001 [id number] HUDMERLIN,RACHEL OMAS PATIENT MEDICARE (WNR) MEDICARE (M) PART A May 07, 2001 PART A [id number] HUDOCK,RACHEL OMAS PATIENT MEDICARE (WNR) MEDICARE (M) PART B May 07, 2001 PART B [id number] HUDOCK,RACHEL OMAS PATIENT MEDICARE (WNR) MEDICARE (M) PART A May 07, 2001 PART A [id number] HUDMERLIN,RACHEL OMAS PATIENT MEDICARE (WNR) MEDICARE (M) PART B May 07, 2001 PART B [id number] HUDMERLIN,RACHEL OMAS PATIENT MEDICARE (WNR) MEDICARE (M) PART A May 07, 2001 PART A [id number] HUDRACHEL BOYER OMAS PATIENT MEDICARE (WNR) MEDICARE (M) PART B May 07, 2001 PART B [id number] HUDMERLIN,RACHEL OMAS PATIENT MEDICARE (WNR) MEDICARE (M) PART A May 07, 2001 PART A [id number] ([id number] HUDMERLIN,RACHEL OMAS PATIENT MEDICARE (WNR) MEDICARE (M) PART B May 07, 2001 PART B [id number] ([id number] HUDRACHEL BOYER OMGUANACO PATIENT Selected Encounter This section includes the information on record at [place] for the Encounter. Date/Time Encounter Type Encounter Description Reason Pro vider Source November 05, 2023 10:41 AM Outpatient Encounter TELEPHONE/GERIATRICS IHE Encounter Template Text not used by [...] 20 appointments. The data comes from all [place] treatment facilities. Appointment Date/Time Appointment Type Appointme nt Facility Name November 21, 2023 08:00 AM [facility] [place] [facility] [place] [facility] December 04, 2023 11:00 AM [facility] [place] [facility] [place] [facility] Dec 23, 2023 11:00 AM [facility] [place] [facility] [place] [facility] Jan 21, 2024 08:00 AM [facility] [place] [facility] [facility] [place] [facility] Lab Results: +/- 30 days of the encounter This section includes the Chemistry and Hematology Lab Results on record with [place] for the patient. Radiology Reports and Pathology Reports are provided separately, in subsequent sections. Lab Results This section contains the Chemistry/Hematology Results that were resulted 30 days before or 30 daysafter the date of the Encounter. Date/Time Source Result Type Result - Unit Interpretation Reference Range Comment November 19, 2023 10:00 AM [facility] HEMOGLOBIN A1C PANEL Specimen [...] Aug 25, 2023 07:46 AM Reporting [facility]: [facility] [address] [address] Performing [facility]: [facility] [address] HEMOGLOBIN A1C 6.8 H 4.0-5.6 November 19, 2023 10:00 AM [facility] TSH Specimen Type: SERUM No comment entered. Ordering Provider: PADMA URIBE Report Released Date/Time: Aug 29, 2023 07:37 PM Reporting Lab: [address] [address] Performing Lab: [address] [address] TSH 2.60 u[IU]/mL 0.35-5.00 November 19, 2023 10:00 AM [facility] URIC ACID Specimen Type: SERUM No comment entered. Ordering Provider: PADMA URIBE Report Released Date/Time: Aug 29, 2023 07:37 PM Reporting Lab: [address] [address] Performing Lab: [address] [address] URIC ACID 9.2 mg/dL H 3.5-7.2 November 19, 2023 10:00 AM [facility] BASIC METABOLIC PANEL (non-fasting) Specimen Type: SERUM No comment entered. Ordering Provider: FABI MCKEON Report Released Date/Time: Aug 25, 2023 07:46 AM Reporting Lab: [address] [address] Performing Lab: [address] [address] UREA NITROGEN 45 mg/dL H 7-25 GLUCOSE [...] and tobacco- related health factors from the [place] facility where the Encounter took place. Current Smoking Status This section includes the most current smoking, or tobacco-related health factor, from the [place] facility where the Encounter took place. Date/Time Current Smoking Status Comment Benjy sherman May 07, 2022 09:00 AM VA-TOBACCO FORMER USER [facility] Tobacco Use History This section includes a history of the smoking, or tobacco-related health factors, that were collected on or before the date of the Encounter. The data comes from the [place] facility where the Encounter took place. Date/Time Smoking Status/Tobac co Use Comment Facility May 07, 2022 09:00 AM VA-TOBACCO QUIT 15 YRS OR MORE [facility] [place] [facility] May 21, 2021 08:00 AM VA-TOBACCO FORMER USER [facility] [place] [facility] May 21, 2021 08:00 AM VA-TOBACCO QUIT 15 [facility]RS [facility] Apr 24, 2020 11:00 AM VA-TOBACCO FORMER USER [facility] [place] [facility] Apr 24, 2020 11:00 AM VA-TOBACCO QUIT 15 YRS OR MORE [facility] [place] [facility] Jan 15, 2018 10:57 AM QUIT TOBACCO USE > 7 YEARS AGO [facility] [place] [facility] Dec 10, 2016 08:53 AM QUIT TOBACCO USE > 7 YEARS AGO [facility] [place] [facility] Jul 19, 2015 10:22 AM QUIT TOBACCO USE > 7 YEARS AGO Quit about 40 years ago. [facility] [place] [facility] November 14, 2004 10:00 AM HISTORY OF SMOKING [facility] [place] [facility] November 14, 2004 10:00 AM LIFETIME NON-SMOKER [facility] [place] [facility] Oct 25, 2003 10:34 AM HISTORY OF SMOKING [facility] [place] [facility] Oct 07, 2002 09:41 AM [facility] Nov 03, 2001 10:31 AM QUIT TOBACCO USE > 7 YEARS AGO [facility] [place] [facility] Jul 31, 2001 02:15 PM NON-TOBACCO USER Quit 20 yrs ago [facility] Advance Directives: All historical and current Section Date Range: From patient's date of to the date document was created. This section includes ALL of a patient's completed or amended [place] Advance and Rescinded Directives. The entries below indicate that a directive exists for the patient, but an actual copy is not included with this document. The data comes from all [place] facilities. Date Advance Directives Provider Source Jul 03, 2023 ADVANCE DIRECTIVE RICHARD BAZZI [facility] Encounter Notes: All associated encounter notes This section contains the clinical notes associated to the Encounter. Date/Time Encounter Note(s) Provider Source November 05, 2023 10:41 AM SOCIAL WORK NOTE: LOCAL TITLE: PERSONAL CARE SERVICES REVIEW STANDARD TITLE: SOCIAL WORK NOTE DATE OF NOTE: NOVEMBER 05, 2023@10:41 ENTRY DATE: NOVEMBER 05, 2023@10:41:40 AUTHOR: CHRISTINA STEPHENSON COSIGNER: URGENCY: STATUS: COMPLETED Personal Care Services Review Type of review: 180 Day Information to complete oversight obtained from: Review of medical record Review of community vendor submitted documentation [place] Community vendor Name: [facility] Community vendor point of contact Name: Crystal The care plan has been reviewed. Care rendered as authorized. meets administrative eligibility criteria. meets clinical eligibility criteria. Case Mix Tool: Date Completed: Mar Case Mix Score: D First range of hours to be used. Plan: Authorization(s) to remain the same Homemaker/Home Health Aide Standardized Episode of Care (SEOC) SEOC duration: 365 days Hours per SEOC duration: 12 hrs/week uses 6 hrs/week Date of next review: 05/07/24 /eliz Stephenson RN RN Signed: 11/05/2023 10:43 CHRISTINA STEPHENSON [facility]
--- OUTSIDE RECORDS SUMMARY | 2024-07-04 16:09 | XMS_ITS ---
Author Name [facility] of [facility] ([place]) [facility] Address [address] [place] [address] Care Team Providers Care Clock And Watch Hands Dipper Name Role Phone ROBERT DAVIS Primary Care [...] O MEDEX BRONZ E Jun 06, 2001 [id number] OMAS PATIENT ANTHEM BCBS OF CT (BLUECARD) MEDICARE SUPPLEMEN BHARGAVI PSUED O MEDEX BRONZ E Jun 06, 2001 [id number] [place] PAT[place] SUPPLEMEN BHARGAVI MEDEX BRONZ E Jun 06, 2001 [id number] [place] PATIENT [place] SUPPLEMEN BHARGAVI PSUED O MEDEX BRONZ E Jun 06, 2001 [id number] HUDRACHEL BOYER [place] PATIENT [place] MEDICARE SUPPLEMEN BHARGAVI PSUED O MEDEX BRONZ E Jun 06, 2001 [id number] HUDRACHEL BOYER OMAS PATIENT MEDICARE (WNR) MEDICARE (M) PART A May 07, 2001 PART A [id number] ([id number] HUDOCK,RACHEL OMAS PATIENT MEDICARE (WNR) MEDICARE (M) PART B May 07, 2001 PART B [id number] ([id number] HUDOCK,RACHEL OMAS PATIENT MEDICARE (WNR) MEDICARE (M) PART A May 07, 2001 PART A [id number] ([id number] HUDMERLIN,RACHEL OMAS PATIENT MEDICARE (WNR) MEDICARE (M) PART B May 07, 2001 PART B [id number] ([id number] HUDRACHEL BOYER OMAS PATIENT MEDICARE (WNR) MEDICARE (M) PART A May 07, 2001 PART A [id number] HUDRACHEL BOYER OMAS PATIENT MEDICARE (WNR) MEDICARE (M) PART B May 07, 2001 PART B [id number] HUDMERLIN,RACHEL OMAS PATIENT MEDICARE (WNR) MEDICARE (M) PART A May 07, 2001 PART A [id number] ([id number] HUDMERLIN,RACHEL OMAS PATIENT MEDICARE (WNR) MEDICARE (M) PART B May 07, 2001 PART B [id number] ([id number] HUDRACHEL BOYER OMGUNAACO PATIENT Selected Encounter This section includes the information on record at NE for the Encounter. 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 The data comes from all [place] treatment facilities. Appointment Date/Time Appointment Type Appointme nt Facility Name November 21, 2023 08:00 AM AMBULATORY - MEDICINE [place] [facility] [place] [facility] December 04, 2023 11:00 AM AMBULATORY - MEDICINE [place] [facility] [place] [facility] Dec 23, 2023 11:00 AM AMBULATORY - MEDICINE [place] [facility] [place] [facility] Jan 21, 2024 08:00 AM AMBULATORY - MEDICINE [place] [facility] [place] [facility] May 08, 2024 08:00 AM AMBULATORY - MEDICINE [place] [facility] [place] [facility] Lab Results: +/- 30 days of the encounter This section includes the Chemistry and Hematology Lab Results on record with NE for the patient. Radiology Reports and Pathology Reports are provided separately, in subsequent sections. Lab Results This section contains the Chemistry/Hematology Results that were resulted 30 days before or 30 daysafter the date of the Encounter. Date/Time Source Result Type Result - Unit Interpretation Reference Range Comment November 19, 2023 10:00 AM [facility] HEMOGLOBIN A1C PANEL Specimen Type: BLOOD Comment: [...] Aug 25, 2023 07:46 AM [facility] [place] [facility] [address] [address] Performing Lab: [facility] [address] [address] HEMOGLOBIN A1C 6.8 H 4.0-5.6 November 19, 2023 10:00 AM [facility] TSH Specimen Type: SERUM No comment entered. Ordering Provider: PADMA URIBE Report Released Date/Time: Aug 29, 2023 07:37 PM Reporting Lab[facility] [address] [address] Performing Lab: [facility] [address] [address] TSH 2.60 u[IU]/mL 0.35-5.00 November 19, 2023 10:00 AM [facility] URIC ACID Specimen Type: SERUM No comment entered. Ordering Provider: PADMA URIBE Report Released Date/Time: Aug 29, 2023 07:37 PM Reporting Lab: [facility] [address] [address] Performing Lab: [facility] [address] [address] URIC ACID 9.2 mg/dL H 3.5-7.2 November 19, 2023 10:00 AM [facility] BASIC METABOLIC PANEL (non-fasting) Specimen Type: SERUM No comment entered. Ordering Provider: FABI MCKEON Report Released Date/Time: Aug 25, 2023 07:46 AM Reporting Lab[facility] [address] [address] Performing Lab: [facility] [address] [address] UREA NITROGEN 45 mg/dL H 7-25 GLUCOSE [...] PM 98.1 72 118/60 16 98 3 [facility] Social History: Smoking Status (Most current) and Tobacco Use (All prior to encounter date) This section includes the most current, and the historical, smoking and tobacco- related health factors from the NE facility where the Encounter took place. Current Smoking Status This section includes the most current smoking, or tobacco-related health factor, from the [place] facility where the Encounter took place. Date/Time Current Smoking Status Comment Facil it November 17, 2023 08:31 AM VA-TOBACCO FORMER USER [place] [facility] [place] [facility] Tobacco Use History This section includes a history of the smoking, or tobacco-related health factors, that were collected on or before the date of the Encounter. The data comes from the NE facility where the Encounter took place. Date/Time Smoking Status/Tobac co Use Comment Facility November 17, 2023 08:31 AM VA-TOBACCO QUIT 15 YRS OR MORE [place] [facility] [place] [facility] May 07, 2022 09:00 AM VA-TOBACCO FORMER USER [place] [facility] [place] [facility] May 07, 2022 09:00 AM VA-TOBACCO QUIT 15 YRS OR MORE [place] [facility] [place] [facility] May 21, 2021 08:00 AM VA-TOBACCO FORMER USER [place] [facility] [place] [facility] May 21, 2021 08:00 AM VA-TOBACCO QUIT 15 YRS OR MORE [place] [facility] [place] [facility] Apr 24, 2020 11:00 AM VA-TOBACCO FORMER USER [place] [facility] [place] [facility] Apr 24, 2020 11:00 AM VA-TOBACCO QUIT 15 YRS OR MORE [place] [facility] [place] [facility] Jan 15, 2018 10:57 AM QUIT TOBACCO USE > 7 YEARS AGO [place] [facility] [place] [facility] Dec 10, 2016 08:53 AM QUIT TOBACCO USE > 7 YEARS AGO [facility] [place] [facility] Jul 19, 2015 10:22 AM QUIT TOBACCO USE > 7 YEARS AGO Quit about 40 years ago. [place] [facility] [place] [facility] November 14, 2004 10:00 AM HISTORY OF SMOKING [facility] [place] [facility] November 14, 2004 10:00 AM LIFETIME NON-SMOKER [place] [facility] [place] [facility] Oct 25, 2003 10:34 AM HISTORY OF SMOKING [place] [facility] [place] [facility] Oct 07, 2002 09:41 AM HISTORY OF SMOKING [place] [facility] [place] [facility] Nov 03, 2001 10:31 AM QUIT TOBACCO USE > 7 YEARS AGO [facility] Jul 31, 2001 02:15 PM NON-TOBACCO USER Quit 20 yrs ago [facility] Advance Directives: All historical and current Section Date Range: From patient's date of to the date document was created. This section includes ALL of a patient's completed or amended [place] Advance and Rescinded Directives. The entries below indicate that a directive exists for the patient, but an actual copy is not included with this document. The data comes from all [place] facilities. Date Advance Directives Provider Source Jul 03, 2023 ADVANCE DIRECTIVE RICHARD BAZZI [facility] Encounter Notes: All associated encounter notes This section contains the clinical notes associated to the Encounter. Date/Time Encounter Note(s) Provider Source November 18, 2023 02:20 PM ADDENDUM: LOCAL TITLE: Addendum STANDARD TITLE: ADDENDUM DATE OF NOTE: NOVEMBER 18, 2023@14:20:53 ENTRY DATE: NOVEMBER 18, 2023@14:20:54 AUTHOR: MARQUES JEFFERY EXP COSIGNER: URGENCY: STATUS: COMPLETED Glucerna flagged to me as on hold. [place] due for nutrition eval. /genoveva/ MARQUES JEFFERY [facility] NURSE PRACTITIONER Signed: 11/18/2023 14:21 Receipt Acknowledged By: 11/19/2023 13:33 /genoveva/ Millie MEEHAN [facility] associate professor of forestry 11/18/2023 14:34 /es/ ROBERT DAVIS RN,MSN,ATMOSPHERIC PHYSICIST-C [facility] NURSE PRACTITIONER 11/19/2023 15:05 /es/ CASSANDRA FERRELL STAFF DIETITIAN --- Original Document --- 11/17/23 [facility] MEDICATION CHANGE: Name: GONZALO VEGA [facility] MORNING NOON EVENING BEDTIME COMMENTS ~~~~~~~~~~~~~~~~~~~~~~~~~ ~~~~~~~~~~~~~~~~~~~~~~~~~~ ~~~~~~~~~~~~~~~~~~~~~~ PENDING ACETAMINOPHEN 500MG TAB TAKE TWO TABLETS BY MOUTH THREE TIMES DAILY NEEDED Quantity: 100 Refills: 2 Indication: FOR PAIN UNITS PER DOSE: ~~~~~~~~~~~~~~~~~~~~~~~~~ ~~~~~~~~~~~~~~~~~~~~~~~~~~ ~~~~~~~~~~~~~~~~~~~~~~ PENDING ATORVASTATIN CALCIUM 80MG TAB TAKE ONE TABLET BY MOUTH ONCE DAILY FOR HIGH CHOLESTEROL Quantity: 90 Refills: 3 Indication: FOR HIGH CHOLESTEROL UNITS PER DOSE: ~~~~~~~~~~~~~~~~~~~~~~~~~ ~~~~~~~~~~~~~~~~~~~~~~~~~~ ~~~~~~~~~~~~~~~~~~~~~~ PENDING CHOLECALCIF 50MCG (D3-2,000UNIT) TAB TAKE ONE TABLET BY MOUTH ONCE DAILY FOR VITAMIN SUPPLEMENTATION HOLD: release when requests Quantity: 90 Refills: 3 Indication: FOR VITAMIN D DEFICIENCY UNITS PER DOSE: ~~~~~~~~~~~~~~~~~~~~~~~~~ ~~~~~~~~~~~~~~~~~~~~~~~~~~ ~~~~~~~~~~~~~~~~~~~~~~ PENDING GABAPENTIN 300MG CAP TAKE 1 CAPSULE BY MOUTH AT BEDTIME HOLD: release when requests Quantity: 30 Refills: 5 Indication: FOR NERVE PAIN UNITS PER DOSE: ~~~~~~~~~~~~~~~~~~~~~~~~~ ~~~~~~~~~~~~~~~~~~~~~~~~~~ ~~~~~~~~~~~~~~~~~~~~~~ PENDING NUTR SUPL GLUCERNA THER NUTR SHAKE RICK SUPL GLUCERNA THER NUTR SHAKE RICK DRINK 1 BOTTLE BY MOUTH ONCE DAILY FOR NUTRITIONAL SUPPLEMENTATION Quantity: 24 Refills: 11 Indication: FOR NUTRITIONAL SUPPLEMENTATION UNITS PER DOSE: ~~~~~~~~~~~~~~~~~~~~~~~~~ ~~~~~~~~~~~~~~~~~~~~~~~~~~ ~~~~~~~~~~~~~~~~~~~~~~ MORNING NOON EVENING BEDTIME COMMENTS ~~~~~~~~~~~~~~~~~~~~~~~~~ ~~~~~~~~~~~~~~~~~~~~~~~~~~ ~~~~~~~~~~~~~~~~~~~~~~ AMMONIUM LACTATE 12% LOTION APPLY MODERATE AMOUNT TOPICALLY ONCE DAILY FOR DRY IRRITATED SKIN 1 refill(s) remaining prior to Aug 05, 2024 (Rx #[id number]) UNITS PER DOSE: ~~~~~~~~~~~~~~~~~~~~~~~~~ ~~~~~~~~~~~~~~~~~~~~~~~~~~ ~~~~~~~~~~~~~~~~~~~~~~ ~~~~~~~~~~~~~~~~~~~~~~~~~ ~~~~~~~~~~~~~~~~~~~~~~~~~~ ~~~~~~~~~~~~~~~~~~~~~~ CHLORTHALIDONE 50MG TAB TAKE ONE TABLET BY MOUTH ONCE DAILY TO REMOVE FLUID/CONTROL BLOOD PRESSURE 3 refill(s) remaining prior to Aug 28, 2024 (Rx #[id number]) UNITS PER DOSE: ~~~~~~~~~~~~~~~~~~~~~~~~~ ~~~~~~~~~~~~~~~~~~~~~~~~~~ ~~~~~~~~~~~~~~~~~~~~~~ DOCUSATE NA 100MG CAP TAKE ONE CAPSULE BY MOUTH TWICE DAILY NEEDED TO SOFTEN STOOL 0 refill(s) remaining prior to Jul 02, 2024 (Rx #[id number]) UNITS PER DOSE: ~~~~~~~~~~~~~~~~~~~~~~~~~ ~~~~~~~~~~~~~~~~~~~~~~~~~~ ~~~~~~~~~~~~~~~~~~~~~~ EMPAGLIFLOZIN 25MG TAB TAKE ONE TABLET BY MOUTH ONCE DAILY 1 refill(s) remaining prior to May 12, 2024 (Rx #[id number]) UNITS PER DOSE: ~~~~~~~~~~~~~~~~~~~~~~~~~ ~~~~~~~~~~~~~~~~~~~~~~~~~~ ~~~~~~~~~~~~~~~~~~~~~~ FUROSEMIDE 20MG TAB TAKE ONE TABLET BY MOUTH EVERY MORNING TO REMOVE FLUID/CONTROL BLOOD PRESSURE 3 refill(s) remaining prior to Aug 28, 2024 (Rx #[id number]) UNITS PER DOSE: ~~~~~~~~~~~~~~~~~~~~~~~~~ ~~~~~~~~~~~~~~~~~~~~~~~~~~ ~~~~~~~~~~~~~~~~~~~~~~ INSULIN,ASPART,HUMAN 100 UNIT/ML INJ INJECT 5 UNITS SUBCUTANEOUSLY EVERY MORNING NEEDED AND INJECT 3 UNITS AT NOON AND INJECT 8 UNITS EVERY EVENING BEFORE SUPPER 1 refill(s) remaining prior to May 12, 2024 (Rx #[id number]) UNITS PER DOSE: ~~~~~~~~~~~~~~~~~~~~~~~~~ ~~~~~~~~~~~~~~~~~~~~~~~~~~ ~~~~~~~~~~~~~~~~~~~~~~ MORNING NOON EVENING BEDTIME COMMENTS ~~~~~~~~~~~~~~~~~~~~~~~~~ ~~~~~~~~~~~~~~~~~~~~~~~~~~ ~~~~~~~~~~~~~~~~~~~~~~ INSULIN,GLARGINE-YFGN 100UNIT/ML INJ INJECT 14 UNITS SUBCUTANEOUSLY ONCE DAILY 2 refill(s) remaining prior to May 12, 2024 (Rx #[id number]) UNITS PER DOSE: ~~~~~~~~~~~~~~~~~~~~~~~~~ ~~~~~~~~~~~~~~~~~~~~~~~~~~ ~~~~~~~~~~~~~~~~~~~~~~ LISINOPRIL 10MG TAB TAKE ONE TABLET BY MOUTH ONCE DAILY FOR HIGH BLOOD PRESSURE TO CONTROL BLOOD PRESSURE 2 refill(s) remaining prior to Aug 15, 2024 (Rx #[id number]) UNITS PER DOSE: ~~~~~~~~~~~~~~~~~~~~~~~~~ ~~~~~~~~~~~~~~~~~~~~~~~~~~ ~~~~~~~~~~~~~~~~~~~~~~ NON-VA ASPIRIN 81MG EC TAB TAKE ONE TABLET BY MOUTH ONCE DAILY UNITS PER DOSE: ~~~~~~~~~~~~~~~~~~~~~~~~~ ~~~~~~~~~~~~~~~~~~~~~~~~~~ ~~~~~~~~~~~~~~~~~~~~~~ NON-VA MULTIVITAMIN/MINERALS CAP/TAB TAKE ONE TABLET BY MOUTH EVERY DAY UNITS PER DOSE: ~~~~~~~~~~~~~~~~~~~~~~~~~ ~~~~~~~~~~~~~~~~~~~~~~~~~~ ~~~~~~~~~~~~~~~~~~~~~~ /genoveva/ ROBERT DAVIS RN,MSN,ATMOSPHERIC PHYSICIST-C [facility] NURSE PRACTITIONER Signed: 11/17/2023 15:53 Receipt Acknowledged By: 11/17/2023 17:19 /es/ Millie MEEHAN HBSON associate professor of forestry [facility] November 17, 2023 03:46 PM [facility] MEDICATION MGT NOTE: LOCAL TITLE: [facility] MEDICATION CHANGE STANDARD TITLE: [facility] MEDICATION MGT NOTE DATE OF NOTE: NOVEMBER 17, 2023@15:46 ENTRY DATE: NOVEMBER 17, 2023@15:47:13 AUTHOR: ASHLEIGH DAVIS COSIGNER: URGENCY: STATUS: COMPLETED [facility] MEDICATION CHANGE Has ADDENDA Name: SILVIAGONZALO [facility] MORNING NOON EVENING BEDTIME COMMENTS ~~~~~~~~~~~~~~~~~~~~~~~~~ ~~~~~~~~~~~~~~~~~~~~~~~~~~ ~~~~~~~~~~~~~~~~~~~~~~ PENDING ACETAMINOPHEN 500MG TAB TAKE TWO TABLETS BY MOUTH THREE TIMES DAILY NEEDED Quantity: 100 Refills: 2 Indication: FOR PAIN UNITS PER DOSE: ~~~~~~~~~~~~~~~~~~~~~~~~~ ~~~~~~~~~~~~~~~~~~~~~~~~~~ ~~~~~~~~~~~~~~~~~~~~~~ PENDING ATORVASTATIN CALCIUM 80MG TAB TAKE ONE TABLET BY MOUTH ONCE DAILY FOR HIGH CHOLESTEROL Quantity: 90 Refills: 3 Indication: FOR HIGH CHOLESTEROL UNITS PER DOSE: ~~~~~~~~~~~~~~~~~~~~~~~~~ ~~~~~~~~~~~~~~~~~~~~~~~~~~ ~~~~~~~~~~~~~~~~~~~~~~ PENDING CHOLECALCIF 50MCG (D3-2,000UNIT) TAB TAKE ONE TABLET BY MOUTH ONCE DAILY FOR VITAMIN SUPPLEMENTATION HOLD: release when requests Quantity: 90 Refills: 3 Indication: FOR VITAMIN D DEFICIENCY UNITS PER DOSE: ~~~~~~~~~~~~~~~~~~~~~~~~~ ~~~~~~~~~~~~~~~~~~~~~~~~~~ ~~~~~~~~~~~~~~~~~~~~~~ PENDING GABAPENTIN 300MG CAP TAKE 1 CAPSULE BY MOUTH AT BEDTIME HOLD: release when requests Quantity: 30 Refills: 5 Indication: FOR NERVE PAIN UNITS PER DOSE: ~~~~~~~~~~~~~~~~~~~~~~~~~ ~~~~~~~~~~~~~~~~~~~~~~~~~~ ~~~~~~~~~~~~~~~~~~~~~~ PENDING NUTR SUPL GLUCERNA THER NUTR SHAKE RICK SUPL GLUCERNA THER NUTR SHAKE RICK DRINK 1 BOTTLE BY MOUTH ONCE DAILY FOR NUTRITIONAL SUPPLEMENTATION Quantity: 24 Refills: 11 Indication: FOR NUTRITIONAL SUPPLEMENTATION UNITS PER DOSE: ~~~~~~~~~~~~~~~~~~~~~~~~~ ~~~~~~~~~~~~~~~~~~~~~~~~~~ ~~~~~~~~~~~~~~~~~~~~~~ MORNING NOON EVENING BEDTIME COMMENTS ~~~~~~~~~~~~~~~~~~~~~~~~~ ~~~~~~~~~~~~~~~~~~~~~~~~~~ ~~~~~~~~~~~~~~~~~~~~~~ AMMONIUM LACTATE 12% LOTION APPLY MODERATE AMOUNT TOPICALLY ONCE DAILY FOR DRY IRRITATED SKIN 1 refill(s) remaining prior to Aug 05, 2024 (Rx #[id number]) UNITS PER DOSE: ~~~~~~~~~~~~~~~~~~~~~~~~~ ~~~~~~~~~~~~~~~~~~~~~~~~~~ ~~~~~~~~~~~~~~~~~~~~~~ ~~~~~~~~~~~~~~~~~~~~~~~~~ ~~~~~~~~~~~~~~~~~~~~~~~~~~ ~~~~~~~~~~~~~~~~~~~~~~ CHLORTHALIDONE 50MG TAB TAKE ONE TABLET BY MOUTH ONCE DAILY TO REMOVE FLUID/CONTROL BLOOD PRESSURE 3 refill(s) remaining prior to Aug 28, 2024 (Rx #[id number]) UNITS PER DOSE: ~~~~~~~~~~~~~~~~~~~~~~~~~ ~~~~~~~~~~~~~~~~~~~~~~~~~~ ~~~~~~~~~~~~~~~~~~~~~~ DOCUSATE NA 100MG CAP TAKE ONE CAPSULE BY MOUTH TWICE DAILY NEEDED TO SOFTEN STOOL 0 refill(s) remaining prior to Jul 02, 2024 (Rx #[id number]) UNITS PER DOSE: ~~~~~~~~~~~~~~~~~~~~~~~~~ ~~~~~~~~~~~~~~~~~~~~~~~~~~ ~~~~~~~~~~~~~~~~~~~~~~ EMPAGLIFLOZIN 25MG TAB TAKE ONE TABLET BY MOUTH ONCE DAILY 1 refill(s) remaining prior to May 12, 2024 (Rx #[id number]) UNITS PER DOSE: ~~~~~~~~~~~~~~~~~~~~~~~~~ ~~~~~~~~~~~~~~~~~~~~~~~~~~ ~~~~~~~~~~~~~~~~~~~~~~ FUROSEMIDE 20MG TAB TAKE ONE TABLET BY MOUTH EVERY MORNING TO REMOVE FLUID/CONTROL BLOOD PRESSURE 3 refill(s) remaining prior to Aug 28, 2024 (Rx #[id number]) UNITS PER DOSE: ~~~~~~~~~~~~~~~~~~~~~~~~~ ~~~~~~~~~~~~~~~~~~~~~~~~~~ ~~~~~~~~~~~~~~~~~~~~~~ INSULIN,ASPART,HUMAN 100 UNIT/ML INJ INJECT 5 UNITS SUBCUTANEOUSLY EVERY MORNING NEEDED AND INJECT 3 UNITS AT NOON AND INJECT 8 UNITS EVERY EVENING BEFORE SUPPER 1 refill(s) remaining prior to May 12, 2024 (Rx #[id number]) UNITS PER DOSE: ~~~~~~~~~~~~~~~~~~~~~~~~~ ~~~~~~~~~~~~~~~~~~~~~~~~~~ ~~~~~~~~~~~~~~~~~~~~~~ MORNING NOON EVENING BEDTIME COMMENTS ~~~~~~~~~~~~~~~~~~~~~~~~~ ~~~~~~~~~~~~~~~~~~~~~~~~~~ ~~~~~~~~~~~~~~~~~~~~~~ INSULIN,GLARGINE-YFGN 100UNIT/ML INJ INJECT 14 UNITS SUBCUTANEOUSLY ONCE DAILY 2 refill(s) remaining prior to May 12, 2024 (Rx #[id number]) UNITS PER DOSE: ~~~~~~~~~~~~~~~~~~~~~~~~~ ~~~~~~~~~~~~~~~~~~~~~~~~~~ ~~~~~~~~~~~~~~~~~~~~~~ LISINOPRIL 10MG TAB TAKE ONE TABLET BY MOUTH ONCE DAILY FOR HIGH BLOOD PRESSURE TO CONTROL BLOOD PRESSURE 2 refill(s) remaining prior to Aug 15, 2024 (Rx #[id number]) UNITS PER DOSE: ~~~~~~~~~~~~~~~~~~~~~~~~~ ~~~~~~~~~~~~~~~~~~~~~~~~~~ ~~~~~~~~~~~~~~~~~~~~~~ NON-VA ASPIRIN 81MG EC TAB TAKE ONE TABLET BY MOUTH ONCE DAILY UNITS PER DOSE: ~~~~~~~~~~~~~~~~~~~~~~~~~ ~~~~~~~~~~~~~~~~~~~~~~~~~~ ~~~~~~~~~~~~~~~~~~~~~~ NON-VA MULTIVITAMIN/MINERALS CAP/TAB TAKE ONE TABLET BY MOUTH EVERY DAY UNITS PER DOSE: ~~~~~~~~~~~~~~~~~~~~~~~~~ ~~~~~~~~~~~~~~~~~~~~~~~~~~ ~~~~~~~~~~~~~~~~~~~~~~ /genoveva/ ROBERT DAVIS RN,MSN,ATMOSPHERIC PHYSICIST-C [facility] NURSE PRACTITIONER Signed: 11/17/2023 15:53 Receipt Acknowledged By: 11/17/2023 17:19 /es/ Millie AMADO associate professor of forestry 11/18/2023 ADDENDUM STATUS: COMPLETED Glucerna flagged to me as on hold. due for nutrition eval. /es/ MARQUES JEFFERY [facility] NURSE PRACTITIONER Signed: 11/18/2023 14:21 Receipt Acknowledged By: * AWAITING SIGNATURE * MILLIE DAVENPORT * AWAITING SIGNATURE * ROBERT DAVIS * AWAITING SIGNATURE * CASSANDRA FERRELL [place] [facility] [place] [facility] November 17, 2023 03:20 PM NURSING FALL RISK ASSESSMENT NOTE: LOCAL TITLE: [facility] POST FALL ASSESSMENT NOTE STANDARD TITLE: NURSING FALL RISK ASSESSMENT NOTE DATE OF NOTE: NOVEMBER 17, 2023@15:20 ENTRY DATE: NOVEMBER 17, 2023@15:20:17 AUTHOR: ASHLEIGH DAVIS COSIGNER: URGENCY: STATUS: COMPLETED [facility] FALL ASSESSMENT NOTE Date of Fall: 2 weeks ago Unknown Time of Fall: Unknown Discharge Planner: Millie Davenport Fall was witnessed: No Description of Fall: Where: outside home How: lost balance, held onto gril and fell onto left elbow Injury: Yes Location: elbow Side: Left Other Information Pertinent to Fall: Level of Injury: 1 = Minor (bruises, scrapes, no increase in level of care) Symptoms Prior to Fall: none Assistive Device in Use at Time of Fall: none Contributing Factors at time of fall: gait or imbalance, problem footwear Environmental Factors: slipped Contributing diagnosis to current fall: orthopedic (OA, Osteoporosis, FX) If fall occurred while HC/[facility] staff was providing direct patient care in the home, report on Joint Patient Safety Reporting Site (JPSR) found on [facility] Intranet home page. No, not applicable Is patient currently receiving PT/OT services: No Pt referred to PT/OT: Yes Patient Declines NO Interventions: Follow-up Medical Visit, PC PSA Notified Program Follow-up: Interdisciplinary Team reviews recent falls and modifies Patient's care plan as appropriate. Edging Catcher (or designee) tracks all falls, observes trends, and modifies Falls Prevention Plan as needed. Fall data is reported to [facility] Patient Art Supervisor on a quarterly basis. /genovvea/ ROBERT DAVIS RN,MSN,ATMOSPHERIC PHYSICIST-C [facility] NURSE PRACTITIONER Signed: 11/17/2023 15:22 Receipt Acknowledged By: 11/18/2023 08:53 /genoveva/ FELIPA SOLANO, OTR/L [facility] OCCUPATIONAL THERAPIST 11/17/2023 15:25 /es/ MONSE DUBON HB FABRIC AWNING REPAIRER 11/17/2023 17:12 /es/ Millie DUENASN [facility] associate professor of forestry LATASHA DAVIS [facility]
--- OUTSIDE RECORDS SUMMARY | 2024-07-04 16:10 | XMS_ITS | Encounter Summary ---
Author Name [facility] [place] [facility] [place] Organization [facility] [place] Address [address] [place] [id number] Care Team Providers Care Director Learning And Development Name Role Phone ROBERT DAVIS Primary Care [...] O MEDEX BRONZ E Jun 06, 2001 [id number] [phone] OMAS PATIENT ANTHEM BCBS OF [place] (BLUECARD) MEDICARE SUPPLEMEN BHARGAVI PSUED O MEDEX BRONZ E Jun 06, 2001 [id number] [phone] OMAS PATIENT [place]BS [place] MEDICARE SUPPLEMEN BHARGAVI MEDEX BRONZ E Jun 06, 2001 [id number] [place] PAT[place] SUPPLEMEN BHARGAVI PSUED O MEDEX BRONZ E Jun 06, 2001 [id number] [phone] HUDRACHEL BOYER [place] PATIENT [place] MEDICARE SUPPLEMEN BHARGAVI PSUED O MEDEX BRONZ E Jun 06, 2001 [id number] HUDRACHEL BOYER OMAS PATIENT MEDICARE (WNR) MEDICARE (M) PART A May 07, 2001 PART A [id number] HUDOCK,RACHEL OMAS PATIENT MEDICARE (WNR) MEDICARE (M) PART B May 07, 2001 PART B [id number] HUDOCK,RACHEL OMAS PATIENT MEDICARE (WNR) MEDICARE (M) PART A May 07, 2001 PART A [id number] HUDMERLIN,RACHEL OMAS PATIENT MEDICARE (WNR) MEDICARE (M) PART B May 07, 2001 PART B [id number] HUDMERLIN,RACHEL OMAS PATIENT MEDICARE (WNR) MEDICARE (M) PART A May 07, 2001 PART A [id number] HUDRACHEL BOYER OMAS PATIENT MEDICARE (WNR) MEDICARE (M) PART B May 07, 2001 PART B [id number] HUDMERLIN,RACHEL OMAS PATIENT MEDICARE (WNR) MEDICARE (M) PART A May 07, 2001 PART A [id number] ([id number] HUDMERLIN,RACHEL OMAS PATIENT MEDICARE (WNR) MEDICARE (M) PART B May 07, 2001 PART B [id number] ([id number] HUDRACHEL BOYER OMGUANACO PATIENT Selected Encounter This section includes the information on record at [place] for the Encounter. Date/Time Encounter Type Encounter Description Reason Provider Source Dec 08, 2023 10:20 AM Outpatient Encounter PROSTHETICS/ORTHOTI RABIA GARCIA Encounter Template Text not used by VA [...] Date/Time Appointment Type Appointme nt Facility Name Dec 23, 2023 11:00 AM [facility] [place] [facility] [place] [facility] Jan 21, 2024 08:00 AM [facility] [place] [facility] [facility] [place] [facility] May 08, 2024 08:00 AM [facility] Lab Results: +/- 30 days of [...] Result - Unit Interpretation Reference Range Comment Dec 29, 2023 12:00 PM [facility] VITAMIN D (25-OH) Specimen Type: SERUM No comment entered. Ordering Provider: Crispin DAVIS Report Released Date/Time: November 17, 2023 09:28 AM Reporting Lab: [facility] [address] [facility] [address] Performing Lab: [facility] [address] [facility] [address] VITAMIN D (25-OH) 20 ng/mL 20-50 Dec 29, 2023 12:00 PM [facility] CALCIUM Specimen Type: SERUM No comment entered. Ordering Provider: Crispin DAVIS Report Released Date/Time: November 17, 2023 09:28 AM Reporting Lab: [facility] [address] [facility] [address] Performing Lab: [facility] [address] [facility] [address] CALCIUM 8.9 mg/dL 8.5-10.2 November 19, 2023 10:00 AM [facility] HEMOGLOBIN A1C PANEL Specimen Type: BLOOD [...] Aug 25, 2023 07:46 AM Reporting [facility] [place] [facility] [address] [facility] [address] Performing Lab: [facility] [facility] [place] [address] [address] HEMOGLOBIN A1C 6.8 H 4.0-5.6 November 19, 2023 10:00 AM [facility] [place] [facility] TSH Specimen Type: SERUM No comment entered. Ordering Provider: PADMA URIBE Report Released Date/Time: Aug 29, 2023 07:37 PM Reporting Lab[facility] [place] [address] [address] Performing [facility]: [facility] [place] [address] [address] TSH 2.60 u[IU]/mL 0.35-5.00 November 19, 2023 10:00 AM [facility] URIC ACID Specimen Type: SERUM No comment entered. Ordering Provider: PADMA URIBE Report Released Date/Time: Aug 29, 2023 07:37 PM Reporting Lab[facility] [place] [address] [address] Performing Lab: [facility] [place] [address] [address] URIC ACID 9.2 mg/dL H 3.5-7.2 November 19, 2023 10:00 AM [facility] BASIC METABOLIC PANEL (non-fasting) Specimen Type: SERUM No comment entered. Ordering Provider: FABI MCKEON Report Released Date/Time: Aug 25, 2023 07:46 AM Reporting Lab: [facility] [place] [address] [address] Performing Lab: [facility] [place] [address] [address] UREA NITROGEN 45 mg/dL H 7-25 GLUCOSE [...] 17, 2023 08:31 AM VA-TOBACCO [facility] [facility] Tobacco Use History This section includes a history of the smoking, or tobacco-related health factors, that were collected on or before the date of the Encounter. The data comes from the [place] facility where the Encounter took place. Date/Time Smoking Status/Tobac co Use Comment Facility November 17, 2023 08:31 AM VA-TOBACCO QUIT 15 YRS OR MORE [facility] [place] [facility] May 07, 2022 09:00 AM VA-TOBACCO FORMER USER [facility] [place] [facility] May 07, 2022 09:00 AM VA-TOBACCO QUIT 15 YRS OR MORE [facility] [place] [facility] May 21, 2021 08:00 AM VA-TOBACCO FORMER USER [facility] [place] [facility] May 21, 2021 08:00 AM VA-TOBACCO QUIT 15 YRS OR MORE [facility] [place] [facility] Apr 24, 2020 11:00 AM VA-TOBACCO FORMER USER [facility] [place] [facility] Apr 24, 2020 11:00 AM VA-TOBACCO QUIT 15 YRS OR MORE [facility] [place] [facility] Jan 15, 2018 10:57 AM QUIT TOBACCO USE > 7 YEARS AGO [facility] [place] [facility] Dec 10, 2016 08:53 AM QUIT TOBACCO USE > 7 YEARS AGO [facility] [place] [facility] Jul 19, 2015 10:22 AM QUIT TOBACCO USE > 7 YEARS AGO Quit about 40 years ago. [facility] November 14, 2004 10:00 AM HISTORY OF SMOKING [facility] November 14, 2004 10:00 AM LIFETIME NON-SMOKER [facility] Oct 25, 2003 10:34 AM HISTORY OF SMOKING [facility] Oct 07, 2002 09:41 AM HISTORY OF SMOKING [facility] Nov 03, 2001 10:31 AM QUIT TOBACCO USE > 7 YEARS AGO [facility] Jul 31, 2001 02:15 PM NON-TOBACCO USER Quit 20 yrs ago [facility] Advance Directives: All historical and current [...]
--- OUTSIDE RECORDS SUMMARY | 2024-07-04 16:10 | XMS_ITS | Encounter Summary ---
Author Name [facility] [place] [facility] [place] [facility] [place] Address [address] [place] [address] Care Team Providers Care Stamper Blocker Name Role Phone ROBERT DAVIS Primary Care [...] O MEDEX BRONZ E [birth year], 2000 [id number] [phone] OMAS PATIENT ANTHEM BCBS OF CT (BLUECARD) MEDICARE SUPPLEMEN BHARGAVI PSUED O MEDEX BRONZ E Jun 06, 2001 [id number] [phone] OMAS PATIENT [place] MED[place] SUPPLEMEN BHARGAVI MEDEX BRONZ E Jun 06, 2001 [id number] [place] PAT[place] MED[place] SUPPLEMEN BHARGAVI PSUED O MEDEX BRONZ E Jun 06, 2001 [id number] RACHEL VEGA [place] PATIENT [place] MED[place] SUPPLEMEN BHARGAVI PSUED O MEDEX BRONZ E Jun 06, 2001 [id number] HUDRACHEL BOYER OMAS PATIENT MEDICARE (WNR) MEDICARE (M) PART A May 07, 2001 PART A [id number] HUDRACHEL BOYER OMAS PATIENT MEDICARE (WNR) MEDICARE (M) PART B May 07, 2001 PART B [id number] ([id number] HUDOCK,RACHEL OMAS PATIENT MEDICARE (WNR) MEDICARE (M) PART A May 07, 2001 PART A [id number] HUDMERLIN,RACHEL OMAS PATIENT MEDICARE (WNR) MEDICARE (M) PART B May 07, 2001 PART B [id number] HUDRACHEL BOYER OMAS PATIENT MEDICARE (WNR) MEDICARE (M) PART A May 07, 2001 PART A [id number] ([id number] HUDRACHEL BOYER OMAS PATIENT MEDICARE (WNR) MEDICARE (M) PART B May 07, 2001 PART B [id number] HUDMERLIN,RACHEL OMAS PATIENT MEDICARE (WNR) MEDICARE (M) PART A May 07, 2001 PART A [id number] [id number] HUDRACHEL BOYER OMAS PATIENT MEDICARE (WNR) MEDICARE (M) PART B May 07, 2001 PART B [id number] [phone] HUDRACHEL BOYER OMGUANACO PATIENT Selected Encounter This section includes the information on record at [place] for the Encounter. Date/Time Encounter Type Encounter Description Reason Provider Source November 24, 2023 09:45 AM Outpatient Encounter PROSTHETICS/ORTHOTI RABIA GARCIA Encounter [...] 20 appointments. The data comes from all [place] treatment facilities. Appointment Date/Time Appointment Type Appointme nt Facility Name December 04, 2023 11:00 AM AMBULATORY - MEDICINE [facility] [place] [facility] Dec 23, 2023 11:00 AM AMBULATORY - MEDICINE [facility] [place] [facility] Jan 21, 2024 08:00 AM AMBULATORY - MEDICINE [facility] [place] [facility] May 08, 2024 08:00 AM [facility] Lab Results: +/- 30 days of the encounter This section includes the Chemistry and Hematology Lab Results on record with [place] for the patient. Radiology Reports and Pathology Reports are provided separately, in subsequent sections. Lab Results This section contains the Chemistry/Hematology Results that were resulted 30 days before or 30 daysafter the date of the Encounter. Date/Time Source Result Type Result - Unit Interpretation Reference Range Comment November 19, 2023 10:00 AM [facility] HEMOGLOBIN A1C PANEL Specimen Type: BLOOD [...] Aug 25, 2023 07:46 AM Reporting [facility] [address] [address] Performing Lab: [facility] [address] HEMOGLOBIN A1C 6.8 H 4.0-5.6 November 19, 2023 10:00 AM [facility] TSH Specimen Type: SERUM No comment entered. Ordering Provider: PADMA URIBE Report Released Date/Time: Aug 29, 2023 07:37 PM Reporting Lab: [address] [address] Performing Lab: [facility] [address] [facility] [address] TSH 2.60 u[IU]/mL 0.35-5.00 November 19, 2023 10:00 AM [facility] URIC ACID Specimen Type: SERUM No comment entered. Ordering Provider: PADMA URIBE Report Released Date/Time: Aug 29, 2023 07:37 PM Reporting Lab: [address] [address] Performing Lab: [address] [address] URIC ACID 9.2 mg/dL H 3.5-7.2 November 19, 2023 10:00 AM [facility] BASIC METABOLIC PANEL (non-fasting) Specimen Type: SERUM No comment entered. Ordering Provider: FABI MCKEON Report Released Date/Time: Aug 25, 2023 07:46 AM Reporting Lab: [address] [address] Performing Lab: [address] [address] UREA NITROGEN 45 mg/dL H 7-25 GLUCOSE [...] and tobacco- related health factors from the [place] facility where the Encounter took place. Current Smoking Status This section includes the most current smoking, or tobacco-related health factor, from the [place] facility where the Encounter took place. Date/Time Current Smoking Status Comment Facil ity November 17, 2023 08:31 AM VA-TOBACCO FORMER USER [facility] Tobacco Use History This section includes a history of the smoking, or tobacco-related health factors, that were collected on or before the date of the Encounter. The data comes from the [place] facility where the Encounter took place. Date/Time Smoking Status/Tobac co Use Comment Facility November 17, 2023 08:31 AM VA-TOBACCO QUIT 15 YRS OR MORE [facility] [place] [facility] May 07, 2022 09:00 AM VA-TOBACCO FORMER USER [facility] [place] [facility] May 07, 2022 09:00 AM VA-TOBACCO QUIT 15 YRS OR MORE [facility] [place] [facility] May 21, 2021 08:00 AM VA-TOBACCO FORMER USER [facility] [place] [facility] May 21, 2021 08:00 AM VA-TOBACCO QUIT 15 YRS OR MORE [facility] [place] [facility] Apr 24, 2020 11:00 AM VA-TOBACCO FORMER USER [facility] [place] [facility] Apr 24, 2020 11:00 AM VA-TOBACCO QUIT 15 YRS OR MORE [facility] [place] [facility] Jan 15, 2018 10:57 AM QUIT TOBACCO USE > 7 YEARS AGO [facility] [place] [facility] Dec 10, 2016 08:53 AM QUIT TOBACCO USE > 7 YEARS AGO [facility] [place] [facility] Jul 19, 2015 10:22 AM QUIT TOBACCO USE > 7 YEARS AGO Quit about 40 years ago. [facility] [place] [facility] November 14, 2004 10:00 AM HISTORY OF SMOKING [facility] [place] [facility] November 14, 2004 10:00 AM LIFETIME NON-SMOKER [facility] [place] [facility] Oct 25, 2003 10:34 AM HISTORY OF SMOKING [facility] [place] [facility] Oct 07, 2002 09:41 AM HISTORY OF SMOKING [facility] [place] [facility] Nov 03, 2001 10:31 AM QUIT TOBACCO USE > 7 YEARS AGO [facility] [place] [facility] Jul 31, 2001 02:15 PM NON-TOBACCO USER Quit 20 yrs ago [facility] [place] [facility] Advance Directives: All historical and current Section Date Range: From patient's date of to the date document was created. This section includes ALL of a patient's completed or amended [place] Advance and Rescinded Directives. The entries below indicate that a directive exists for the patient, but an actual copy is not included with this document. The data comes from all [place] facilities. Date Advance Directives Provider Source Jul 03, 2023 ADVANCE DIRECTIVE RICHARD BAZZI [facility]
--- OUTSIDE RECORDS SUMMARY | 2024-07-04 16:10 | XMS_ITS ---
Author Name [facility] Organization [facility] Address [address] [place] [address] Care Team Providers Care Fulfillment Mail Clerk Name Role Phone ROBERT DAVIS Primary Care Provider Unav ailable RICHARD BAZZI Unavailable Unavailable CASSANDRA FERRELL Unavailable Unavailable KELSEA JO Unavailable Unavailable JAGDISH, MONSE Unavailable Unavailable MILLIE DAVENPORT Unavailable Unavailable DARSHAN [...] O MEDEX BRONZ E Jun 06, 2001 [id number] OM[facility] PATIENT ANTHEM BCBS OF [place] (BLUECARD) MEDICARE SUPPLEMEN BHARGAVI PSUED O MEDEX BRONZ E Jun 06, 2001 [id number] [phone] [place] PAT[place] SUPPLEMEN BHARGAVI MEDEX BRONZ E Jun 06, 2001 [id number] [place] PAT[place] SUPPLEMEN BHARGAVI PSUED O MEDEX BRONZ E Jun 06, 2001 [id number] [phone] HUDRACHEL BOYER OMAS PATIENT BCBS OF [facility] MEDICARE SUPPLEMEN BHARGAVI PSUED O MEDEX BRONZ E Jun 06, 2001 [id number] [phone] HUDOCK,RACHEL OMAS PATIENT MEDICARE (WNR) MEDICARE (M) PART A May 07, 2001 PART A [id number] HUDOCK,RACHEL OMAS PATIENT MEDICARE (WNR) MEDICARE (M) PART B May 07, 2001 PART B [id number] HUDOCK,RACHEL OMAS PATIENT MEDICARE (WNR) MEDICARE (M) PART A May 07, 2001 PART A [id number] ([id number] HUDOCK,RACHEL OMAS PATIENT MEDICARE (WNR) MEDICARE (M) PART B May 07, 2001 PART B [id number] ([id number] HUDMERLIN,RACHEL OMAS PATIENT MEDICARE (WNR) MEDICARE (M) PART A May 07, 2001 PART A [id number] HUDOCK,RACHEL OMAS PATIENT MEDICARE (WNR) MEDICARE (M) PART B May 07, 2001 PART B [id number] HUDOCK,RACHEL OMAS PATIENT MEDICARE (WNR) MEDICARE (M) PART A May 07, 2001 PART A [id number] ([id number] HUDOCK,RACHEL OMAS PATIENT MEDICARE (WNR) MEDICARE (M) PART B May 07, 2001 PART B [id number] ([id number] HUDMERLIN,RACHEL OMAS PATIENT Selected Encounter This section includes the information on record at [place] for the Encounter. Date/Time Encounter Type Encounter Description Reason Provider Source December 04, 2023 11:00 AM OFF/OP EST NOVEMBER X REQ PHY/QHP GENERAL INTERNAL MEDICINE ICD-10-CM E11.9 Type 2 diabetes mellitus without complications GUSTAVO CLANCY E Encounter Template Text not used by [facility] Assessments - Encounter Diagnoses This section includes the primary and secondary diagnoses documented for the Encounter. Date/Time Primary/Secondary Diagnosis Diagnosis Name Provider Source December 04, 2023 11:36 AM PRIMARY Type 2 diabetes mellitus without complications GUSTAVO CLANCY [facility] Plan of Treatment: Future Appointments (+ 6 months) and Future Tests (+/- 45 days) The Plan of Treatment section includes future care activities for the [facility] [place] [facility] This section includes future appointments and future orders which are active, pending or scheduled. Future Appointments This section includes appointments that were scheduled to occur 6 months from the date of the Encounter, up to a maximum of 20 appointments. The data comes from all [place] treatment facilities. Appointment Date/Time Appointment Type Appointme nt Facility Name Dec 23, 2023 11:00 AM AMBULATORY - MEDICINE [facility] Jan 21, 2024 08:00 AM AMBULATORY [facility]ICINE [facility] May 08, 2024 08:00 AM AMBULATORY MEDICINE [facility] Lab Results: +/- 30 days of the encounter This section includes the Chemistry and Hematology Lab Results on record with [place] for the patient. Radiology Reports and Pathology Reports are provided separately, in subsequent sections. Lab Results This section contains the Chemistry/Hematology Results that were resulted 30 days before or 30 daysafter the date of the Encounter. Date/Time Source Result Type Result - Unit Interpretation Reference Range Comment Dec 29, 2023 12:00 PM [facility] VITAMIN D (25-OH) Specimen Type: SERUM No comment entered. Ordering Provider: Crispin DAVIS Report Released Date/Time: November 17, 2023 09:28 AM Reporting Lab: [address] [address] Performing Lab: [address] [address] VITAMIN D (25-OH) 20 ng/mL 20-50 Dec 29, 2023 12:00 PM [facility] CALCIUM Specimen Type: SERUM No comment entered. Ordering Provider: Crispin DAVIS Report Released Date/Time: November 17, 2023 09:28 AM Reporting Lab: [address] [address] [facility] [address] [facility] [address] CALCIUM 8.9 mg/dL 8.5-10.2 November 19, 2023 10:00 AM [facility] HEMOGLOBIN A1C PANEL Specimen Type: BLOOD Comment: [...] Aug 25, 2023 07:46 AM Reporting Lab: [facility] [address] [facility] [address] Performing Lab: [address] [address] HEMOGLOBIN A1C 6.8 H 4.0-5.6 November 19, 2023 10:00 AM [facility] TSH Specimen Type: SERUM No comment entered. Ordering Provider: PADMA URIBE Report Released Date/Time: Aug 29, 2023 07:37 PM Reporting Lab: [facility] [address] [facility] [address] Performing Lab: [address] [address] TSH 2.60 u[IU]/mL 0.35-5.00 November 19, 2023 10:00 AM [facility] URIC ACID Specimen Type: SERUM No comment entered. Ordering Provider: PADMA URIBE Report Released Date/Time: Aug 29, 2023 07:37 PM Reporting Lab: [facility] [address] [facility] [address] Performing Lab: [address] [address] URIC ACID 9.2 mg/dL H 3.5-7.2 November 19, 2023 10:00 AM [facility] BASIC METABOLIC PANEL (non-fasting) Specimen Type: SERUM No comment entered. Ordering Provider: FABI MCKEON Released Date/Time: Aug 25, 2023 07:46 AM Reporting Lab: [facility] [address] [facility] [address] Performing Lab: [facility] [address] [facility] [address] UREA NITROGEN 45 mg/dL H 7-25 GLUCOSE [...] Pain Height Weight Body Mass Index Source December 04, 2023 11:33 AM 96.7 89 150/62 16 97 2 152 22 [facility] Social History: Smoking Status (Most current) and Tobacco Use (All prior to encounter date) This section includes the most current, and the historical, smoking and tobacco- related health factors from the [place] facility where the Encounter took place. Current Smoking Status This section includes the most current smoking, or tobacco-related health factor, from the [place] facility where the Encounter took place. Date/Time Current Smoking Status Comment [facility] November 17, 2023 08:31 AM VA-TOBACCO FORMER USER [facility] Tobacco Use History This section includes a history of the smoking, or tobacco-related health factors, that were collected on or before the date of the Encounter. The data comes from the [place] facility where the Encounter took place. Date/Time Smoking Status/Tobac co Use Comment Facility November 17, 2023 08:31 AM [place]-TOBACCO QUIT 15 YRS OR MORE [facility] May 07, 2022 09:00 AM VA-TOBACCO FORMER USER [facility] May 07, 2022 09:00 AM [place]-TO[place]ACCO QUIT 15 YRS OR MORE [facility] [place] [facility] May 21, 2021 08:00 AM VA-TOBACCO FORMER USER [place] [facility] [place] [facility] May 21, 2021 08:00 AM VA-TOBACCO QUIT 15 YRS OR MORE [facility] [place] [facility] Apr 24, 2020 11:00 AM VA-TOBACCO [facility] Apr 24, 2020 11:00 AM VA-TOBACCO QUIT 15 YRS OR MORE [place] [facility] [place] [facility] Jan 15, 2018 10:57 AM QUIT TOBACCO USE > 7 YEARS AGO [facility] Dec 10, 2016 08:53 AM QUIT TOBACCO USE > 7 YEARS AGO [facility] Jul 19, 2015 10:22 AM QUIT TOBACCO USE > 7 YEARS AGO Quit about 40 years ago. [place] [facility] November 14, 2004 10:00 AM HISTORY OF SMOKING [facility] November 14, 2004 10:00 AM [facility] Oct 25, 2003 10:34 AM [facility] Oct 07, 2002 09:41 AM [facility] Nov 03, 2001 10:31 AM QUIT TOBACCO USE > 7 [facility] Jul 31, 2001 02:15 PM NON-TOBACCO USER Quit 20 yrs ago [facility] Advance Directives: All historical and current Section Date Range: From patient's date of to the date document was created. This section includes ALL of a patient's completed or amended [place] Advance and Rescinded Directives. The entries below indicate that a directive exists for the patient, but an actual copy is not included with this document. The data comes from all [place] facilities. Date Advance Directives Provider Source Jul 03, 2023 ADVANCE DIRECTIVE RICHARD BAZZI [facility] Encounter Notes: All associated encounter notes This section contains the clinical notes associated to the Encounter. Date/Time Encounter Note(s) Provider Source December 04, 2023 11:35 AM DIABETOLOGY NOTE: LOCAL TITLE: GLUCOSE PATIENT METER DATA STANDARD TITLE: DIABETOLOGY NOTE DATE OF NOTE: DECEMBER 04, 2023@11:35 ENTRY DATE: DECEMBER 04, 2023@11:35:40 AUTHOR: GLADYS CLANCY COSIGNER: URGENCY: STATUS: COMPLETED Name: GONZALO VEGA : 1935 ID: [id number] Information from [facility] on 12/04/2023 Patient Name: GONZALO VEGA Date Range: 11/21/2023 - 12/04/2023 bG values are displayed in mg/dL # of tests 31 Average 167 SD 41.8 Highest 252 Lowest 101 Avg tests/day 2.2 # HI 0 # LO 0 <80 0.0% 80-130 19.4% >130 80.6% Hypos(<70) 0 Date Range: 11/21/2023 - 12/04/2023 bG values are displayed in mg/dL 00:00- - 08:00- 11:- - 17:- - - 08:00 11:00 12:30 17:00 18:30 21:30 00:00 11/21/2023 116 178 11/22/2023 252 102 194 11/23/2023 244 194 11/24/2023 171 226 239 11/25/2023 209 186 101 11/26/2023 180 151 Erika 11/27/2023 180 159 11/28/2023 208 150 116 11/29/2023 149 134 11/30/2023 194 135 12/01/2023 160 107 12/02/2023 125 12/03/2023 151 138 184 Erika 12/04/2023 145 Date Range: 11/21/2023 - 12/04/2023 bG values are displayed in mg/dL 00:00- - 08:00- 11:00- :30- 17:00- 18:30- :30- 05:30 08:00 11:00 12:30 17:00 18:30 21:30 00:00 # of tests 0 11 4 7 9 0 0 0 Average 0 166 213 172 144 0 0 0 SD 31.5 43.4 31.2 47.1 Hi/Lo 0 0 0 0 0 0 0 0 Date Range: 11/21/2023 - 12/04/2023 bG values are displayed in mg/dL 11/21/2023 7:25 AM 116 4:08 PM 178 11/22/2023 8:03 AM 252 10:59 AM 194 4:40 PM 102 11/23/2023 8:33 AM 244 11:11 AM 194 11/24/2023 7:20 AM 171 11:08 AM 226 4:46 PM 239 11/25/2023 7:12 AM 209 11:04 AM 186 4:20 PM 101 11/26/2023 7:18 AM 180 11:18 AM 151 11/27/2023 6:51 AM 180 11:22 AM 159 11/28/2023 6:57 AM 208 11:29 AM 150 4:20 PM 116 11/29/2023 7:47 AM 149 4:52 PM 134 11/30/2023 7:55 AM 194 4:09 PM 135 12/01/2023 8:46 AM 160 3:59 PM 107 12/02/2023 6:39 AM 125 12/03/2023 7:24 AM 151 11:11 AM 138 4:19 PM 184 12/04/2023 6:35 AM 145 End of information from [facility] /genoveva/ GLADYS CLANCY LPN Specialty Care Signed: 12/04/2023 11:36 GLADYS CLANCY [facility] [place] [facility]
--- OUTSIDE RECORDS SUMMARY | 2024-07-04 16:10 | XMS_ITS ---
Author Name [facility] [place] [facility] [place] Address [address] [place] [id number] Care Team Providers Care Fertilizer Mixer Name Role Phone ROBERT DAVIS Primary Care [...] O MEDEX BRONZ E Jun 06, 2001 [id number] [phone] OMAS PATIENT ANTHEM BCBS OF CT (BLUECARD) MEDICARE SUPPLEMEN BHARGAVI PSUED O MEDEX BRONZ E Jun 06, 2001 [id number] OMAS PATIENT BCBS IN MEDICARE SUPPLEMEN BHARGAVI MEDEX BRONZ E Jun 06, 2001 [id number] [phone] OMAS PATIENT BCBS IN MEDICARE SUPPLEMEN BHARGAVI PSUED O MEDEX BRONZ E Jun 06, 2001 [id number] HUDRACHEL BOYER OMAS PATIENT [place] OF [place] MEDICARE SUPPLEMEN BHARGAVI PSUED O MEDEX BRONZ E Jun 06, 2001 [id number] [phone] HUDOCK,RACHEL OMAS PATIENT MEDICARE (WNR) MEDICARE (M) PART A May 07, 2001 PART A [id number] HUDOCK,RACHEL OMAS PATIENT MEDICARE (WNR) MEDICARE (M) PART B May 07, 2001 PART B [id number] HUDOCK,RACHEL OMAS PATIENT MEDICARE (WNR) MEDICARE (M) PART A May 07, 2001 PART A [id number] ([id number] HUDOCK,RACHEL OMAS PATIENT MEDICARE (WNR) MEDICARE (M) PART B May 07, 2001 PART B [id number] HUDMERLIN,RACHEL OMAS PATIENT MEDICARE (WNR) MEDICARE () PART A May 07, 2001 PART A [id number] HUDRACHEL BOYER OMAS PATIENT MEDICARE (WNR) MEDICARE (M) PART B May 07, 2001 PART B [id number] HUDMERLIN,RACHEL OMAS PATIENT MEDICARE (WNR) MEDICARE () PART A May 07, 2001 PART A [id number] HUDMERLIN,RACHEL OMAS PATIENT MEDICARE (WNR) MEDICARE () PART B May 07, 2001 PART B [id number] ([id number] HUDRACHEL BOYER OMAS PATIENT Selected Encounter This section includes the information on record at [place] for the Encounter. Date/Time Encounter Type Encounter Description Reason Provider Source December 04, 2023 11:00 AM OFFICE O/P EST MOD 30 MIN ENDOCRINOLOGY ICD-10-CM E11.9 Type 2 diabetes mellitus without complications FABI MCKEON Mallory Encounter Template Text not used by [place] Assessments - Encounter Diagnoses This section includes the primary and secondary diagnoses documented for the Encounter. Date/Time Primary/Secondary Diagnosis Diagnosis Name Provider Source Dec 31, 2023 10:55 AM PRIMARY Type 2 diabetes mellitus without complications FABI MCKEON [place] [facility] [place] [facility] Dec 31, 2023 10:55 AM SECONDARY Essential (primary) hypertension ELMWOODFABI [place] [facility] [place] [facility] Dec 31, 2023 10:55 AM SECONDARY Hyperlipidemia, unspecified FABI MCKEON [place] [facility] [facility] Dec 31, 2023 10:55 AM SECONDARY Type 2 diabetes mellitus w diabetic chronic kidney disease ELMWOODFABI [place] [facility] [facility] Dec 31, 2023 10:55 AM SECONDARY Type 2 diabetes mellitus with diabetic polyneuropathy MC[facility]ONFABI [facility] [place] [facility] Dec 31, 2023 10:55 AM SECONDARY 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 Plan of Treatment: Future Appointments (+ 6 months) and Future Tests (+/- 45 days) The Plan of Treatment section includes future care activities for the patient from all [place] treatmentcilities. This section includes future appointments and future [...] AMBULATORY - [place]ICINE [place] [facility] Jan 21, 2024 08:00 AM AMBULATORY - [place] [facility] May 08, 2024 08:00 AM AMBULATORY - MEDICINE [facility] Lab Results: +/- 30 days of [...] Range Comment Dec 29, 2023 12:00 PM [facility] VITAMIN D (25-OH) Specimen Type: SERUM No comment entered. Ordering Provider: Crispin DAVIS Report Released Date/Time: November 17, 2023 09:28 AM Reporting Lab: [facility] [place] [facility] [address] [facility] [address] Performing Lab: [facility] [place] [facility] [address] [facility] [address] VITAMIN D (25-OH) 20 ng/mL 20-50 Dec 29, 2023 12:00 PM [facility] [place] [facility] CALCIUM Specimen Type: SERUM No comment entered. Ordering Provider: Crispin DAVIS Report Released Date/Time: November 17, 2023 09:28 AM Reporting Lab: [facility] [place] [facility] [address] [facility] [address] Performing Lab: [facility] [address] [address] CALCIUM 8.9 mg/dL 8.5-10.2 November 19, 2023 10:00 AM [facility] [place] [facility] HEMOGLOBIN A1C PANEL Specimen Type: BLOOD Comment: [...] Aug 25, 2023 07:46 AM Reporting Lab: [facility] [place] [address] [phone] Performing Lab: [facility] [address] [address] HEMOGLOBIN A1C 6.8 H 4.0-5.6 November 19, 2023 10:[address] [facility] TSH Specimen Type: SERUM No comment entered. Ordering Provider: PADMA URIBE Report Released Date/Time: Aug 29, 2023 07:37 PM Reporting Lab: [facility] [place] [facility] [address] [facility] [address] Performing Lab: [facility] [address] [address] TSH 2.60 u[IU]/mL 0.35-5.00 November 19, 2023 10:00 AM [facility] URIC ACID Specimen Type: SERUM No comment entered. Ordering Provider: PADMA URIBE Report Released Date/Time: Aug 29, 2023 07:37 PM Reporting Lab: [address] [address] Performing Lab: [address] [address] URIC ACID 9.2 mg/dL H 3.5-7.2 November 19, 2023 10:00 AM [facility] BASIC METABOLIC PANEL (non-fasting) Specimen Type: SERUM No comment entered. Ordering Provider: FABI MCKEON Report Released Date/Time: Aug 25, 2023 07:46 AM Reporting Lab: [address] [address] Performing Lab: [address] [address] UREA NITROGEN 45 mg/dL H 7-25 GLUCOSE [...] 89 150/62 16 97 2 152 22 [facility] Social History: Smoking Status (Most current) [...] place. Date/Time Current Smoking Status Comment Facil lane November 17, 2023 08:31 AM VA-TOBACCO FORMER USER [facility] [place] [facility] Tobacco Use History This section includes a history of the smoking, or tobacco-related health factors, that were collected on or before the date of the Encounter. The data comes from the [place] facility where the Encounter took place. Date/Time Smoking Status/Tobac co Use Comment Facility November 17, 2023 08:31 AM VA-TOBACCO QUIT 15 YRS OR MORE [place] [facility] [facility] May 07, 2022 09:00 AM VA-TOBACCO FORMER USER [place] [facility] [facility] May 07, 2022 09:00 AM VA-TOBACCO QUIT 15 YRS OR MORE [place] [facility] [place] [facility] May 21, 2021 08:00 AM VA-TOBACCO FORMER USER [place] [facility] [facility] May 21, 2021 08:00 AM VA-TOBACCO QUIT 15 YRS OR MORE [place] [facility] [facility] Apr 24, 2020 11:00 AM VA-TOBACCO FORMER USER [place] [facility] [facility] Apr 24, 2020 11:00 AM VA-TOBACCO QUIT 15 YRS OR MORE [place] [facility] [place] [facility] Jan 15, 2018 10:57 AM QUIT TOBACCO USE > 7 YEARS AGO [place] [facility] [place] [facility] Dec 10, 2016 08:53 AM QUIT TOBACCO USE > 7 YEARS AGO [place] [facility] [place] [facility] Jul 19, 2015 10:22 AM QUIT TOBACCO USE > 7 YEARS AGO Quit about 40 years ago. [place] [facility] [facility] November 14, 2004 10:00 AM HISTORY OF SMOKING [place] [facility] [facility] November 14, 2004 10:00 AM LIFETIME NON-SMOKER [place] [facility] [facility] Oct 25, 2003 10:34 AM HISTORY OF SMOKING [place] [facility] [place] [facility] Oct 07, 2002 09:41 AM HISTORY OF SMOKING [place] [facility] [facility] Nov 03, 2001 10:31 AM QUIT TOBACCO USE > 7 YEARS AGO [place] [facility] [place] [facility] Jul 31, 2001 02:15 PM NON-TOBACCO USER Quit 20 yrs ago [place] [facility] Advance Directives: All historical and current Section Date Range: From patient's date of to the date document was created. This section includes ALL of a patient's completed or amended [place] Advance and Rescinded Directives. The entries below indicate that a directive exists for the patient, but an actual copy is not included with this document. The data comes from all [place] facilities. Date Advance Directives Provider Source Jul 03, 2023 ADVANCE DIRECTIVE RICHARD BAZZI [place] [facility] Encounter Notes: All associated encounter notes This section contains the clinical notes associated to the Encounter. Date/Time Encounter Note(s) Provider Source December 02, 2023 07:46 AM PHYSICIAN NOTE: LOCAL TITLE: MD NOTE STANDARD TITLE: PHYSICIAN NOTE DATE OF NOTE: DECEMBER 02, 2023@07:46 ENTRY DATE: DECEMBER 02, 2023@07:46:23 AUTHOR: FABI MCKEON COSIGNER: URGENCY: STATUS: COMPLETED Diabetes Mellitus type 2 with chronic renal disease, peripheral neuropathy, PDR, HTN, Hyperlipidemia HPI: Has some LBP chronically, otherwise pretty well. All endocrine labs were reviewed with the patient. Barriers/s supports for care: Lives alone. Followed by HB. Cooking his own meals three a day. Sometimes ordering in. Eating some sweets daily Medications for diabetes: aspart 5/3/6 and glargine 16 units BG readings:: Fri11/21/2023 116 178 11/22/2023 252 102 194 11/23/2023 244 194 11/24/2023 171 226 239 11/25/2023 209 186 101 11/26/2023 180 151 Erika 11/27/2023 180 159 11/28/2023 208 150 116 11/29/2023 149 134 11/30/2023 194 135 12/01/2023 160 107 12/02/2023 125 12/03/2023 151 138 184 Erika 12/04/2023 145 Hgba1c? HEMOGLOBIN A1C TREND 11/19/2023 10:00 BLOOD 6.8 H 08/01/2023 11:00 BLOOD 7.3 H 05/07/2023 11:00 BLOOD 7.0 H 01/28/2023 09:30 BLOOD 7.7 H 10/21/2022 08:54 BLOOD 6.9 H Weight trend: 148 lbs BMI 22.49 Food insecurity no Physical activity: limited Carbohydrate counting: pretty familiar. Met with [facility] Nutrition Episodes of hypoglycemia: no Hypoglycemia unawareness: Neuropathy pain: no pain Last eye evaluation: 06/2023 stable proliferative diabetic retinopathy OU, s/p PRP. Followed by Retina specialists at [facility] Last nephropathy screen MICROALBUMIN Aug 15, 2023@11:00 URINE mALB/Cr: 112.4 H mg/G 0 - 29.9 FindingsCREATININE-EGFR 11/19/23 10:00 1.41 H 08/01/23 11:00 1.21 05/07/23 11:00 1.16 Statin therapy:Aug 01 2023 CHOL 157 mg/dL <7 - 199 TRIG 63 mg/dL 0 - 150 HDL 79 H mg/dL 40 - 60 LDL 65 mg/dL 0 - 129 CAD: present On asa: yes emergency kit/glucose tabs: glucagon n/a Active problems - Computerized Problem List is the source for the followin. Aortic valve stenosis 2. Right foot drop 3. Frail elderly 4. Hypertension 5. History of surgery 6. 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 Peripheral neuropathy due to type 2 diabetes mellitus 8. Diabetic retinopathy associated with type 2 diabetes mellitus 9. Coronary artery disease 10. History of polyp of colon 11. Osteoarthritis 12. Elevated PSA (SNOMED CT 645237378) 13. Anemia 14. B12 deficiency monitoring status (SNOMED CT 669619706) 15. Other and unspecified alcohol dependence, unspecified drinking behavior (ICD 16. Chronic pain (SNOMED CT 17029805) 17. Hyperlipidemia (SNOMED CT 64292477) 18. Hypertensive heart AND chronic kidney disease with congestive heart failure 19. Diabetes mellitus (SNOMED CT 26105574) Active Outpatient Medications (including Supplies): ACETAMINOPHEN 500MG [...] ONE TABLET BY MOUTH ONCE DAILY ACTIVE (S) FUROSEMIDE 20MG TAB TAKE ONE TABLET BY MOUTH EVERY MORNING ACTIVE (S) TO REMOVE FLUID/CONTROL BLOOD PRESSURE GABAPENTIN 300MG CAP TAKE ONE CAPSULE BY MOUTH AT BEDTIME HOLD FOR NERVE PAIN INSULIN SYRINGE 0.5ML 30G 12MM USE 1 SYRINGE ACTIVE SUBCUTANEOUSLY FOUR TIMES DAILY NEEDED FOR INSULIN INJECTIONS INSULIN,ASPART,HUMAN 100 UNIT/ML INJ INJECT 5 UNITS ACTIVE (S) SUBCUTANEOUSLY EVERY MORNING NEEDED AND INJECT 3 UNITS AT NOON AND INJECT 8 UNITS EVERY EVENING BEFORE SUPPER INSULIN,GLARGINE-YFGN 100UNIT/ML INJ INJECT 14 UNITS ACTIVE (S) SUBCUTANEOUSLY ONCE DAILY LISINOPRIL 10MG TAB TAKE ONE TABLET BY MOUTH ONCE DAILY ACTIVE (S) FOR HIGH BLOOD PRESSURE TO CONTROL BLOOD PRESSURE NUTR SUPL GLUCERNA THER NUTR SHAKE RICK DRINK 1 BOTTLE BY ACTIVE MOUTH ONCE DAILY FOR NUTRITIONAL SUPPLEMENTATION Non-VA ASPIRIN 81MG EC TAB 81MG BY MOUTH ONCE DAILY ACTIVE Non-VA MULTIVITAMIN/MINERALS CAP/TAB 1 TABLET BY MOUTH ACTIVE EVERY DAY SHX: as above ROS: No cough or fever PE: affect pleasant appropriate speaking easily in full sentences Feet pulses not palpable sensory to monofilament mild decrase lesions no Medical Decision Making: Diabetes Mellitus type 2 with chronic renal disease, Not desiring a glucose sensor. Insulin Dose: no change, based on bg Carbohydrate targets 45 gm TID Blood sugar targets 130-150 premeal and 150-200 after. Hemoglobin A1c Targets 8 Focus is on avoidance of sx Hypertension Elevated today, previous visits, and at home. Suggested increase in lisinopril. Discussed benefits and harms. He agrees Hyperlipidemia well controlled Team follow up With [facility] clinical pharmacist, suggest three mos. Insulin orders updated in [facility] Home Telehealth (CCHT) Referral: Patient not a candidate for CCHT Program at this time. Reason: well controlled bg Medication Reconciliation: Outpatient: Has the patient been taking medications as documented in the EMLR? No: Discrepencies were identified. See below. Essential Medication List for Review used to complete this medication reconciliation. INCLUDED IN THIS LIST: Alphabetical list of active outpatient prescriptions dispensed from this [place] (local) and dispensed from another [place] or [place] facility (remote) as well as [...] list may not be complete. Please check JLV. Allergies/ADRs (Tool #5) FACILITY ALLERGY/ADR -------- No Remote Allergy/ADR Data available for this patient [facility] LISINOPRIL Med Recon [facility] (Tool #1) INCLUDED IN THIS LIST: Alphabetical list of active outpatient prescriptions dispensed from this [place] (local) and dispensed from another [place] or [place] facility (remote) as well as inpatient orders (local pending and active), local clinic medications, locally documented non-VA medications, and local prescriptions that have or been discontinued in the past 90 days. Non-VA Meds Last Documented On: December 04, 2022 NOTE The display of VA prescriptions dispensed from another VA or DoD facility (remote) is limited to active outpatient prescription entries matched to National Drug File at the originating site and may not include some items such as investigational drugs, compounds, etc. NOT INCLUDED IN THIS LIST: Medications self-entered by the patient into personal health records (i.e. [employer]) are NOT included in this list. Non-VA medications documented outside this [place], remote inpatient orders (regardless of status) and remote clinic medications are NOT included in this list. The patient and provider must always discuss medications the patient is taking, regardless of where the medication was dispensed or obtained. OUTPT ACETAMINOPHEN 500MG TAB (Status = Active) TAKE TWO TABLETS BY MOUTH THREE TIMES DAILY NEEDED FOR PAIN Rx# [id number] Last Released: 11/21/23 Qty/Days Supply: 10030 Rx Expiration Date: 11/17/24 Refills Remainin Indication: FOR PAIN OUTPT AMMONIUM LACTATE 12% LOTION (Status = Active) APPLY MODERATE AMOUNT TOPICALLY ONCE DAILY FOR DRY IRRITATED SKIN Rx# [id number] Last Released: 08/07/23 Qty/Days Supply: Rx Expiration Date: 08/05/24 Refills Remainin Indication: FOR DRY SKIN Non-VA ASPIRIN 81MG EC TAB TAKE ONE TABLET BY MOUTH ONCE DAILY OUTPT ATORVASTATIN CALCIUM 80MG TAB (Status = Discontinued) TAKE ONE TABLET BY MOUTH ONCE DAILY FOR HIGH CHOLESTEROL Rx# [id number] Last Released: 10/13/23 Qty/Days Supply: Rx Expiration Date: 01/29/24 Refills Remainin Indication: FOR HIGH CHOLESTEROL OUTPT ATORVASTATIN CALCIUM 80MG TAB (Status = Active/Suspended) TAKE ONE TABLET BY MOUTH ONCE DAILY FOR HIGH CHOLESTEROL Rx# [id number] Last Released: QtDays Supply: Rx Expiration Date: 11/17/24 Refills Remainin Indication: FOR HIGH CHOLESTEROL OUTPT CHLORTHALIDONE 50MG TAB (Status = Active) TAKE ONE TABLET BY MOUTH ONCE DAILY TO REMOVE FLUID/CONTROL BLOOD PRESSURE Rx# [id number] Last Released: 11/27/23 Qty/Days Supply: Rx Expiration Date: 08/28/24 Refills Remainin OUTPT CHOLECALCIF 1,250MCG (D3-50,000UNIT) CAP (Status = Discontinued) TAKE ONE CAPSULE BY MOUTH WEEKLY FOR VITAMIN D DEFICIENCY Rx# [id number] Last Released: 09/02/23 Qty/Days Supply: Rx Expiration Date: 11/30/23 Refills Remainin Indication: FOR VITAMIN D DEFICIENCY OUTPT CHOLECALCIF 50MCG (D3-2,000UNIT) TAB (Status = On Hold) TAKE ONE TABLET BY MOUTH ONCE DAILY FOR VITAMIN SUPPLEMENTATION Rx# [id number] Last Released: Qt Supply: 100 Rx Expiration Date: 11/17/24 Refills Remainin Indication: FOR VITAMIN D DEFICIENCY OUTPT CYANOCOBALAMIN 1000MCG TAB (Status = Discontinued) TAKE ONE TABLET BY MOUTH DAILY FOR VITAMIN SUPPLEMENTATION Rx# [id number] Last Released: 09/16/23 Qty/Days Supply: 90 Rx Expiration Date: 10/20/23 Refills Remainin OUTPT DOCUSATE NA 100MG CAP (Status = Active) TAKE ONE CAPSULE BY MOUTH TWICE DAILY NEEDED TO SOFTEN STOOL Rx# [id number] Last Released: 09/16/23 Qty/Days Supply: 100/50 Rx Expiration Date: 07/02/24 Refills Remainin Indication: FOR CONSTIPATION OUTPT EMPAGLIFLOZIN 25MG TAB (Status = Active/Suspended) TAKE ONE TABLET BY MOUTH ONCE DAILY Rx# [id number] Last Released: 10/22/23 Qty/Days Supply: 90 Rx Expiration Date: 05/12/24 Refills Remainin Indication: FOR TYPE 2 DIABETES MELLITUS OUTPT FUROSEMIDE 20MG TAB (Status = Active/Suspended) TAKE ONE TABLET BY MOUTH EVERY MORNING TO REMOVE FLUID/CONTROL BLOOD PRESSURE Rx# [id number] Last Released: 10/28/23 Qty/Days Supply: 90 Rx Expiration Date: 08/28/24 Refills Remainin Indication: FOR HIGH BLOOD PRESSURE OUTPT GABAPENTIN 100MG CAP (Status = Discontinued) TAKE TWO CAPSULES BY MOUTH AT BEDTIME FOR NERVE PAIN Rx# [id number] Last Released: 11/05/23 Qty/Days Supply: 180/90 Rx Expiration Date: 08/28/24 Refills Remainin Indication: FOR NERVE PAIN OUTPT GABAPENTIN 300MG CAP (Status = On Hold) TAKE ONE CAPSULE BY MOUTH AT BEDTIME FOR NERVE PAIN Rx# [id number] Last Released: QtDays Supply: Rx Expiration Date: 11/17/24 Refills Remainin Indication: FOR NERVE PAIN OUTPT INSULIN,ASPART,HUMAN 100 UNIT/ML INJ (Status = Discontinued) INJECT 5 UNITS SUBCUTANEOUSLY EVERY MORNING NEEDED AND INJECT 3 UNITS AT NOON AND INJECT 8 UNITS EVERY EVENING BEFORE SUPPER Rx# [id number] Last Released: 08/05/23 Qty/Days Supply: Rx Expiration Date: 05/12/24 Refills Remainin Indication: FOR DIABETES OUTPT INSULIN,ASPART,HUMAN 100 UNIT/ML INJ (Status = Pending) INJECT 5 UNITS SUBCUTANEOUSLY EVERY MORNING NEEDED AND INJECT 3 UNITS SUBCUTANEOUSLY AT NOON AND INJECT 6 UNITS SUBCUTANEOUSLY EVERY EVENING BEFORE SUPPER Login Date: 12/04/23 Qty/Days Supply: Refills Ordered: 2 OUTPT INSULIN,GLARGINE-YFGN 100UNIT/ML INJ (Status = Discontinued) INJECT 14 UNITS SUBCUTANEOUSLY ONCE DAILY Rx# [id number] Last Released: 09/15/23 Qty/Days Supply: Rx Expiration Date: 05/12/24 Refills Remainin Indication: FOR DIABETES OUTPT INSULIN,GLARGINE-YFGN 100UNIT/ML INJ (Status = Pending) INJECT 16 UNITS SUBCUTANEOUSLY ONCE DAILY Login Date: 12/04/23 Qty/Days Supply: Refills Ordered: 2 OUTPT LISINOPRIL 10MG TAB (Status = Discontinued) TAKE ONE TABLET BY MOUTH ONCE DAILY FOR HIGH BLOOD PRESSURE TO CONTROL BLOOD PRESSURE Rx# [id number] Last Released: 10/28/23 Qty/Days Supply: Rx Expiration Date: 08/15/24 Refills Remainin Indication: FOR HIGH BLOOD PRESSURE OUTPT LISINOPRIL 20MG TAB (Status = Pending) TAKE ONE TABLET BY MOUTH ONCE DAILY TO CONTROL BLOOD PRESSURE Login Date: 12/04/23 Qty/Days Supply: Refills Ordered: 3 Non-VA MULTIVITAMIN/MINERALS CAP/TAB TAKE ONE TABLET BY MOUTH EVERY DAY OUTPT NUTR SUPL GLUCERNA THER NUTR SHAKE RICK (Status = Discontinued) DRINK 1 BOTTLE BY MOUTH ONCE DAILY FOR NUTRITIONAL SUPPLEMENTATION Rx# [id number] Last Released: 09/13/23 Qty/Days Supply: Rx Expiration Date: 12/21/23 Refills Remainin Indication: FOR NUTRITIONAL SUPPLEMENTATION OUTPT NUTR SUPL GLUCERNA THER NUTR SHAKE RICK (Status = Active) DRINK 1 BOTTLE BY MOUTH ONCE DAILY FOR NUTRITIONAL SUPPLEMENTATION Rx# [id number] Last Released: 11/20/23 Qty/Days Supply: Rx Expiration Date: 11/17/24 Refills Remainin Indication: FOR NUTRITIONAL SUPPLEMENTATION SUPPLIES OUTPT INSULIN SYRINGE 0.5ML 30G 12MM (Status = Active) USE 1 SYRINGE SUBCUTANEOUSLY FOUR TIMES DAILY NEEDED FOR INSULIN INJECTIONS Rx# [id number] Last Released: 09/15/23 Qty/Days Supply: 400/90 Rx Expiration Date: 12/05/23 Refills Remainin PAVE Foot Check: A complete foot check was completed at this encounter. VISUAL INSPECTION: Includes inspection for skin breaks, deformity, erythema, trauma, pallor on elevation, dependent rubor, nail deformities, extensive callus and pitting edema. Visual exam results: Normal PEDAL PULSES: Includes palpation of dorsalis and posterior tibial pulses and signs/symptoms of vascular compromise like pain, pallor, parasthesia or paralysis. Absent: SENSORY CHECK: Includes 10 gram Monofilament (Palo-Carlos) test of sensation. Intact (Greater than or equal to 80% of sites checked) Abnormal (Less than 80% of sites checked): Abnormal (decreased or absent sensation to monofilament): HIGH-RISK: HIGH RISK INFORMATION PROVIDED: 1. Advised patient that extra depth footwear with soft molded inserts and braces may be required. 2. Advised patient not to walk barefoot. 3. Explained the importance of daily foot checks. 4. Stressed the importance of daily foot hygiene, including bathing, complete drying and thorough inspection for changes. The patient verbalized understanding and was offered a detailed handout on diabetic foot care. Patient being seen by an outside environmental services specialist /genoveva/ FABI MCKEON MD STAFF PHYSICIAN Signed: 12/04/2023 12:13 FABI MCKEON [facility]
--- OUTSIDE RECORDS SUMMARY | 2024-07-04 16:10 | XMS_ITS ---
Author Name [facility] [place] Organization [facility] Address [address] [place] [address] Care Team Providers Care Senior Software Systems Engineer Name Role Phone ROBERT DAVIS Primary Care [...] O MEDEX BRONZ E Jun 06, 2001 [id number] [phone] OMAS PATIENT ANTHEM BCBS OF [place] (BLUECARD) MEDICARE SUPPLEMEN BHARGAVI PSUED O MEDEX BRONZ E Jun 06, 2001 [id number] OM[place] PATIENT [place]BS [place] MEDICARE SUPPLEMEN BHARGAVI MEDEX BRONZ E Jun 06, 2001 [id number] [phone] [place] PAT[place] SUPPLEMEN BHARGAVI PSUED O MEDEX BRONZ E Jun 06, 2001 [id number] [phone] RACHEL VEGA OMAS PATIENT [place] MEDIC[place] SUPPLEMEN BHARGAVI PSUED O MEDEX BRONZ E Jun 06, 2001 [id number] RACHEL VEGA OMAS PATIENT MEDICARE (WNR) MEDICARE (M) PART A May 07, 2001 PART A [id number] HUDOCK,RACHEL OMAS PATIENT MEDICARE (WNR) MEDICARE (M) PART B May 07, 2001 PART B [id number] ([id number] [phone] HUDOCK,RACHEL OMAS PATIENT MEDICARE (WNR) MEDICARE (M) PART A May 07, 2001 PART A [id number] ([id number] [phone] HUDMERLIN,RACHEL OMAS PATIENT MEDICARE (WNR) MEDICARE (M) PART B May 07, 2001 PART B [id number] ([id number] HUDRACHEL BOYER OMAS PATIENT MEDICARE (WNR) MEDICARE (M) PART A May 07, 2001 PART A [id number] ([id number] [phone] HUDRACHEL BOYER OMAS PATIENT MEDICARE (WNR) MEDICARE (M) PART B May 07, 2001 PART B [id number] ([id number] HUDMERLIN,RACHEL OMAS PATIENT MEDICARE (WNR) MEDICARE (M) PART A May 07, 2001 PART A [id number] HUDRACHEL BOYER OMAS PATIENT MEDICARE (WNR) MEDICARE (M) PART B May 07, 2001 PART B [id number] [phone] HUDRACHEL BOYER OMGUANACO PATIENT Selected Encounter This section includes the information on record at [place] for the Encounter. Date/Time Encounter Type Encounter Description Reason Pro vider Source Jan 26, 2024 12:31 PM Outpatient Encounter [facility]YSIC EXTND(BANANA ROOM CUTTER,NURSE OBGYN,PA) IHE Encounter Template Text not used by [...] 20 appointments. The data comes from all [place] treatment facilities. Appointment Date/Time Appointment Type Appointme nt Facility Name May 08, 2024 08:00 AM AMBULATORY - MEDICINE [facility] Jul 13, 2024 11:00 AM AMBULATORY - MEDICINE [facility] Lab Results: +/- 30 days of the encounter This section includes the Chemistry and Hematology Lab Results on record with [place] for the patient. Radiology Reports and Pathology Reports are provided separately, in subsequent sections. Lab Results This section contains the Chemistry/Hematology Results that were resulted 30 days before or 30 daysafter the date of the Encounter. Date/Time Source Result Type Result - Unit Interpretation Reference Range Comment Dec 29, 2023 12:00 PM [facility] VITAMIN D (25-OH) Specimen Type: SERUM No comment entered. Ordering Provider: Crispin DAVIS Report Released Date/Time: November 17, 2023 09:28 AM Reporting Lab: [facility] [address] [address] Performing Lab: [facility] [address] [address] VITAMIN D (25-OH) 20 ng/mL 20-50 Dec 29, 2023 12:00 PM [facility] CALCIUM Specimen Type: SERUM No comment entered. Ordering Provider: Crispin DAVIS Report Released Date/Time: November 17, 2023 09:28 AM Reporting Lab: [facility] [address] [address] Performing Lab: [facility] [address] [address] CALCIUM 8.9 mg/dL 8.5-10.2 Social History: Smoking Status (Most current) and Tobacco Use (All prior to encounter date) This section includes the most current, and the historical, smoking and tobacco- related health factors from the [place] facility where the Encounter took place. Current Smoking Status This section includes the most current smoking, or tobacco-related health factor, from the [place] facility where the Encounter took place. Date/Time Current Smoking Status Comment Facil it November 17, 2023 08:31 AM [facility] [place] [facility] Tobacco Use History This section includes a history of the smoking, or tobacco-related health factors, that were collected on or before the date of the Encounter. The data comes from the [place] facility where the Encounter took place. Date/Time Smoking Status/Tobac co Use Comment Facility November 17, 2023 08:31 AM VA-TOBACCO QUIT 15 YRS OR MORE [place] [facility] [place] [facility] May 07, 2022 09:00 AM VA-TOBACCO FORMER USER [place] [facility] [place] [facility] May 07, 2022 09:00 AM VA-TOBACCO QUIT 15 YRS OR MORE [place] [facility] [place] [facility] May 21, 2021 08:00 AM VA-TOBACCO FORMER USER [place] [facility] [place] [facility] May 21, 2021 08:00 AM VA-TOBACCO QUIT 15 YRS OR MORE [place] [facility] [place] [facility] Apr 24, 2020 11:00 AM VA-TOBACCO FORMER USER [place] [facility] [place] [facility] Apr 24, 2020 11:00 AM VA-TOBACCO QUIT 15 YRS OR MORE [place] [facility] [place] [facility] Jan 15, 2018 10:57 AM QUIT TOBACCO USE > 7 YEARS AGO [place] [facility] [place] [facility] Dec 10, 2016 08:53 AM QUIT TOBACCO USE > 7 YEARS AGO [place] [facility] [place] [facility] Jul 19, 2015 10:22 AM QUIT TOBACCO USE > 7 YEARS AGO Quit about 40 years ago. [place] [facility] [place] [facility] November 14, 2004 10:00 AM HISTORY OF SMOKING [place] [facility] [place] [facility] November 14, 2004 10:00 AM LIFETIME NON-SMOKER [place] [facility] [place] [facility] Oct 25, 2003 10:34 AM HISTORY OF SMOKING [place] [facility] [place] [facility] Oct 07, 2002 09:41 AM HISTORY OF SMOKING [place] [facility] [place] [facility] Nov 03, 2001 10:31 AM QUIT TOBACCO USE > 7 YEARS AGO [place] [facility] [place] [facility] Jul 31, 2001 02:15 PM NON-TOBACCO USER Quit 20 yrs ago [facility] Advance Directives: All historical and current Section Date Range: From patient's date of to the date document was created. This section includes ALL of a patient's completed or amended [place] Advance and Rescinded Directives. The entries below indicate that a directive exists for the patient, but an actual copy is not included with this document. The data comes from all [place] facilities. Date Advance Directives Provider Source Jul 03, 2023 ADVANCE DIRECTIVE RICHARD BAZZI [facility] Encounter Notes: All associated encounter notes This section contains the clinical notes associated to the Encounter. Date/Time Encounter Note(s) Provider Source Jan 26, 2024 12:31 PM ADMINISTRATIVE NOTE: LOCAL TITLE: FAX/MAIL RECEIVED STANDARD TITLE: ADMINISTRATIVE NOTE DATE OF NOTE: JAN 26, 2024@12:31 ENTRY DATE: JAN 26, 2024@12:31:46 AUTHOR: RAMIRO RIVAS EXP COSIGNER: URGENCY: STATUS: COMPLETED Document Received On: Jan Document Type: Other: DISCHARGE-TRANSFER SUMMARY REPORT Date of Service: Jan Facility and or Provider: ROSELINE Contact Information: PCP of Record: ROBERT DAVIS Next visit with PCP: 02/05/2024 11:00 CWM/NO/OPTOMETRY/MERHAR 07/13/2024 11:00 CWM/NO/PODIATRY A Primary Care May keep copies of this document for up to 14 days and send the original for scanning. /genoveva/ RAMIRO AMADO AMSA Signed: 01/26/2024 12:32 Receipt Acknowledged By: 01/26/2024 13:46 /genoveva/ Millie MEEHAN [facility] beauty consultant 01/26/2024 12:42 /genoveva/ ROBERT DAVIS RN,MSN,SUPERVISOR REMELT-C HB NURSE PRACTITIONER RAMIRO RIVAS [facility]
--- OUTSIDE RECORDS SUMMARY | 2024-07-04 16:10 | XMS_ITS ---
Author Name [facility] [place] Organization [place] Address [address] [place] [id number] Care Team Providers Care Nutrition Counselor Name Role Phone ROBERT DAVIS Primary Care [...] O MEDEX BRONZ E [birth year], 2001 [id number] OMAS PATIENT ANTHEM BCBS OF CT (BLUECARD) MEDICARE SUPPLEMEN BHARGAVI PSUED O MEDEX BRONZ E Jun 06, 2001 [id number] [phone] OM[place] PATIENT [place]BS [place] MEDICARE SUPPLEMEN BHARGAVI MEDEX BRONZ E Jun 06, 2001 [id number] [place] SUPP[place]MEN BHARGAVI PSUED O MEDEX BRONZ E Jun 06, 2001 [id number] [phone] HUDRACHEL BOYER OMAS PATIENT BCBS OF [facility] MEDICARE SUPPLEMEN BHARGAVI PSUED O MEDEX BRONZ E Jun 06, 2001 [id number] HUDOCK,RACHEL OMAS PATIENT MEDICARE (WNR) MEDICARE (M) PART A May 07, 2001 PART A [id number] H[place]OCK,RACHEL OMAS PATIENT MEDICARE (WNR) MEDICARE (M) PART B May 07, 2001 PART B [id number] ([id number] [phone] [place],RACHEL OMAS PATIENT MEDICARE (WNR) MEDICARE (M) PART A May 07, 2001 PART A [id number] ([id number] [place]OCK,RACHEL OMAS PATIENT MEDICARE (WNR) MEDICARE (M) PART B May 07, 2001 PART B [id number] ([id number] HUDMERLIN,RACHEL OMAS PATIENT MEDICARE (WNR) MEDICARE () PART A May 07, 2001 PART A [id number] H[place]OCK,RACHEL OMAS PATIENT MEDICARE (WNR) MEDICARE (M) PART B May 07, 2001 PART B [id number] [place],RACHEL OMAS PATIENT MEDICARE (WNR) MEDICARE () PART A May 07, 2001 PART A [id number] HUDMERLIN,RACHEL OMAS PATIENT MEDICARE (WNR) MEDICARE () PART B May 07, 2001 PART B [id number] ([id number] HUDRACHEL BOYER OMAS PATIENT Selected Encounter This section includes the information on record at [place] for the Encounter. 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 This section includes future appointments and future orders which are active, pending or scheduled. Future Appointments This section includes appointments that were scheduled to occur 6 months from the date of the Encounter, up to a maximum of 20 appointments. The data comes from all [place] treatment facilities. Appointment Date/Time Appointment Type Appointme nt Facility Name Jan 21, 2024 08:00 AM [place] [place] [facility] May 08, 2024 08:00 AM AMBULATORY - MEDICINE [facility] Lab Results: +/- 30 days of the encounter This section includes the Chemistry and Hematology Lab Results on record with [place] for the patient. Radiology Reports and Pathology Reports are provided separately, in subsequent sections. Lab Results This section contains the Chemistry/Hematology Results that were resulted 30 days before or 30 daysafter the date of the Encounter. Date/Time Source Result Type Result - Unit Interpretation Reference Range Comment Dec 29, 2023 12:00 PM [facility] VITAMIN D (25-OH) Specimen Type: SERUM No comment entered. Ordering Provider: Crispin DAVIS Report Released Date/Time: November 17, 2023 09:28 AM Reporting [facility] [place] [facility] [address] [facility] [address] Performing Lab: [facility] [address] [facility] [address] VITAMIN D (25-OH) 20 ng/mL 20-50 Dec 29, 2023 12:00 PM [facility] CALCIUM Specimen Type: SERUM No comment entered. Ordering Provider: Crispin DAVIS Report Released Date/Time: November 17, 2023 09:28 AM Reporting [facility]: [facility] [address] Performing Lab: [place] [facility] [place] [facility] [address] [facility] [address] CALCIUM 8.9 mg/dL 8.5-10.2 Social History: Smoking Status (Most current) and Tobacco Use (All prior to encounter date) This section includes the most current, and the historical, smoking and tobacco- related health factors from the [place] facility where the Encounter took place. Current Smoking Status This section includes the most current smoking, or tobacco-related health factor, from the [place] facility where the Encounter took place. Date/Time Current Smoking Status Comment Facil ity November 17, 2023 08:31 AM VA-TOBACCO FORMER USER [place] [facility] [place] [facility] Tobacco Use History This section includes a history of the smoking, or tobacco-related health factors, that were collected on or before the date of the Encounter. The data comes from the [place] facility where the Encounter took place. Date/Time Smoking Status/Tobac co Use Comment Facility November 17, 2023 08:31 AM VA-TOBACCO QUIT 15 YRS OR MORE [place] [facility] [place] [facility] May 07, 2022 09:00 AM VA-TOBACCO FORMER USER [place] [facility] [place] [facility] May 07, 2022 09:00 AM VA-TOBACCO QUIT 15 YRS OR MORE [place] [facility] [place] [facility] May 21, 2021 08:00 AM VA-TOBACCO FORMER USER [place] [facility] [place] [facility] May 21, 2021 08:00 AM VA-TOBACCO QUIT 15 YRS OR MORE [place] [facility] [place] [facility] Apr 24, 2020 11:00 AM VA-TOBACCO FORMER USER [place] [facility] [place] [facility] Apr 24, 2020 11:00 AM VA-TOBACCO QUIT 15 YRS OR MORE [place] [facility] [place] [facility] Jan 15, 2018 10:57 AM QUIT TOBACCO USE > 7 YEARS AGO [place] [facility] [place] [facility] Dec 10, 2016 08:53 AM QUIT TOBACCO USE > 7 YEARS AGO [place] [facility] [place] [facility] Jul 19, 2015 10:22 AM QUIT TOBACCO USE > 7 YEARS AGO Quit about 40 years ago. [place] [facility] [place] [facility] November 14, 2004 10:00 AM HISTORY OF SMOKING [place] [facility] [place] [facility] November 14, 2004 10:00 AM LIFETIME NON-SMOKER [facility] Oct 25, 2003 10:34 AM HISTORY OF SMOKING [facility] Oct 07, 2002 09:41 AM HISTORY OF SMOKING [facility] Nov 03, 2001 10:31 AM QUIT TOBACCO USE > 7 YEARS AGO [facility] Jul 31, 2001 02:15 PM NON-TOBACCO USER Quit 20 yrs ago [facility] Advance Directives: All historical and current [...] Jul 03, 2023 ADVANCE DIRECTIVE RICHARD BAZZI [facility] Encounter Notes: All associated encounter notes This section contains the clinical notes associated to the Encounter. Date/Time Encounter Note(s) Provider Source Dec 23, 2023 10:45 AM PODIATRY NOTE: LOCAL TITLE: PODIATRY NOTE STANDARD TITLE: PODIATRY NOTE DATE OF NOTE: DEC 23, 2023@10:45 ENTRY DATE: DEC 23, 2023@10:45:45 AUTHOR: JOSÉ MIGUEL MAYEN COSIGNER: URGENCY: STATUS: COMPLETED Podiatry High Risk Foot Encounter [facility] provider: José Miguel Mayen DP Date: DEC 23, 2023 GONZALO VEGA MALE [id number] [place] [address] FROM Jun TO Jun Primary Care:ROBERT DAVIS History: 88-year-old male with DM2 without history of significant peripheral neuropathy or PVD seen regularly about every 4 to 6 months for routine nail care no history is of ulcers and amputations surgeries of any kind. He has been doing well up until about a month ago and now has been a significant back problem for which he recently had an MRI. Otherwise stable with no new medical concerns. Subjective: My back has been hurting a lot. Diabetic/ HRF/ PVD LE History: [ ] pvd [ ] pvd interventions [ ] neuropathy [ ] meds: [ ] wound active [ ] infection active [ ] wound history yes [ ] amputation hx [ ] deformity [ ] charcot [ ] surgical deformity intervention PMH list CPRS: Active problems - Computerized Problem List is [...] 11. Osteoarthritis 12. Elevated PSA (SNOMED CT 186767705) 13. Anemia 14. B12 deficiency monitoring status (SNOMED CT 754867495) 15. Other and unspecified alcohol dependence, unspecified drinking behavior (ICD 16. Chronic pain (SNOMED CT 29990648) 17. Hyperlipidemia (SNOMED CT 95693725) 18. Hypertensive heart AND chronic kidney disease with congestive heart failure 19. Diabetes mellitus (SNOMED CT 52327316) Active Out Patient medications: Active Outpatient Medications (including Supplies): Active Outpatient Medications Status 1) ACETAMINOPHEN 500MG TAB TAKE TWO TABLETS BY MOUTH ACTIVE THREE TIMES DAILY NEEDED FOR PAIN 2) AMMONIUM LACTATE 12% LOTION APPLY MODERATE AMOUNT ACTIVE TOPICALLY ONCE DAILY FOR DRY IRRITATED SKIN 3) ATORVASTATIN CALCIUM 80MG TAB TAKE ONE TABLET BY ACTIVE (S) MOUTH ONCE DAILY FOR HIGH CHOLESTEROL 4) CHLORTHALIDONE 50MG TAB TAKE ONE TABLET BY MOUTH ONCE ACTIVE DAILY TO REMOVE FLUID/CONTROL BLOOD PRESSURE 5) CHOLECALCIF 50MCG (D3-2,000UNIT) TAB TAKE ONE TABLET HOLD BY MOUTH ONCE DAILY FOR VITAMIN SUPPLEMENTATION 6) DOCUSATE NA 100MG CAP TAKE ONE CAPSULE BY MOUTH TWICE ACTIVE DAILY NEEDED TO SOFTEN STOOL 7) EMPAGLIFLOZIN 25MG TAB TAKE ONE TABLET BY MOUTH ONCE ACTIVE (S) DAILY 8) FUROSEMIDE 20MG TAB TAKE ONE TABLET BY MOUTH EVERY ACTIVE (S) MORNING TO REMOVE FLUID/CONTROL BLOOD PRESSURE 9) GABAPENTIN 300MG CAP TAKE ONE CAPSULE BY MOUTH AT HOLD BEDTIME FOR NERVE PAIN 10) INSULIN,ASPART,HUMAN 100 UNIT/ML INJ INJECT 5 UNITS ACTIVE SUBCUTANEOUSLY EVERY MORNING NEEDED AND INJECT 3 UNITS AT NOON AND INJECT 6 UNITS EVERY EVENING BEFORE SUPPER FOR DIABETES 11) INSULIN,GLARGINE-YFGN 100UNIT/ML INJ INJECT 16 UNITS ACTIVE SUBCUTANEOUSLY ONCE DAILY FOR DIABETES 12) LISINOPRIL 20MG TAB TAKE ONE TABLET BY MOUTH ONCE ACTIVE DAILY TO CONTROL BLOOD PRESSURE 13) NUTR SUPL GLUCERNA THER NUTR SHAKE RICK DRINK 1 ACTIVE BOTTLE BY MOUTH ONCE DAILY FOR NUTRITIONAL SUPPLEMENTATION Active Non-VA Medications Status 1) Non-VA ASPIRIN 81MG EC TAB 81MG BY MOUTH ONCE DAILY ACTIVE 2) Non-VA MULTIVITAMIN/MINERALS CAP/TAB 1 TABLET BY ACTIVE MOUTH EVERY DAY 15 Total Medications Imaging reports: Lab Data: CREATININE-EGFR 11/19/23 10:00 1.41 H 08/01/23 11:00 1.21 05/07/23 11:00 1.16 No Data Available for EGFR 1 yr HEMOGLOBIN A1C TREND Collection DT Spec HGBA1c 11/19/2023 10:00 BLOOD 6.8 H 08/01/2023 11:00 BLOOD 7.3 H 05/07/2023 11:00 BLOOD 7.0 H 01/28/2023 09:30 BLOOD 7.7 H 10/21/2022 08:54 BLOOD 6.9 H ALBUMIN Collection DT Specimen Test Name Result Units Ref Range 01/28/2023 09:30 SERUM ALBUMIN 3.8 g/dL 3.5 - 5.0 BMI:BMI: 22.5 PE:General: Frail 88-year-old male awake alert oriented x3 neatly dressed casually pleasant and cooperative. Breathing on room air speaking in full sentences Bilateral findings: Bilateral 1+ lower leg ankle and dorsal foot edema no evidence of venous stasis or lymphatic disease Trace palpable DP and PT pulses Toes warm pink well perfused 5 left 5 right Plantar skin with some xerosis but no evidence of rash or infection Webspaces clear Heels intact No significant pedal or lower leg or ankle deformity Nails are thick dystrophic bilateral Overall sensate to [place] monofilament Muscle bulk and tone diminished but commensurate with patient's age PAVE:1 Impression: Mild PVD/mild neuropathy Nail dystrophy Plan: -Diabetic foot exam complete -Diabetic foot care provided in the form of mechanical and electric burring reduction of nails, debridement of nails all 10 performed without incident. Instrumentation reprocessed according to [facility] policy RME. -Patient had diabetes foot care education at this encounter. The patient was educated on the following: DO - Wear panty hose or socks. - Wear comfortable shoes that fit well. - Wear shoes or slippers at all times. - Keep skin soft. Put lotion on top and bottom of feet. - Use only luke warm water when washing your feet. - Look at feet daily for open sores, cuts or color changes. Using a hand held mirror is helpful when looking at the bottom of your feet. - Keep feet dry, especially between the toes. Use powder if needed. - Have feet checked by your doctor or foot doctor regularly. - If you have an open sore, drainage, color changes, increased warmth or pain, notify your doctor promptly. - Cut toenails straight across. *Check with your doctor if you have nerve disease DO NOT - Go barefoot. - Let feet get dry and cracked. - Use hot water when washing your feet. - Wear torn or tight shoes. - Wear tight socks or knee-highs. - Use heating pads, hot water bottles or iodine; they may cause harm. - Use corn medicine or razors. Level of Understanding: Good -Follow-up 6 months Recall: Return sooner if any clinical signs of infection such as redness, swelling drainage fever chills nausea , or go to nearest hospital emergency / urgent care for evaluation. -As part of the service the pertinent primary care, specialty care and urgent care notes have been reviewed as well as the patient's medication list, problem list, and current imaging as well as past imaging, laboratory data and other pertinent contributory consults. -All new and discontinued medications have been discussed in detail with the patient and or caregiver, including indications for additions and deletions, as well as possible side effects, interactions as foreseen, and risk of not taking as prescribed If applicable, the patient was advised clearly on application of wound care agents how to apply and when to apply. The patient was able to recitethis information back to the prescriber with good understanding and agreed to the plan of care as indicated above. -Plan of care discuss with the patient and or caregiver, including medical decision making which includes discussion of abnormal lab results, imaging and other diagnostic modalities as well as results of the physical exam and client consultant opinions and recommendations as sought. Alternatives to surgery or outlined care above as appropriate have also been discussed. -The patient/ caregiver has displayed good understanding of above and with no further questions at this time. Patient is aware of next appointment and agrees to follow-up interval. Patient agrees to seek sooner follow up if any irregular events occur in between such as cardinal signs of infection, increased pain or deformity. -The on this visit was given information [employer] service and encouraged to enroll if not already having done so. /genoveva/ JOSÉ MIGUEL MAYEN DPM PODIATRY ATTENDING Signed: 12/23/2023 15:19 JOSÉ MIGUEL MAYEN [place] [facility]
--- OUTSIDE RECORDS SUMMARY | 2024-07-04 16:10 | XMS_ITS ---
Author Name [facility] [place] Organization [facility] [place] Address [address] [place] [id number] Care Team Providers Care Parish Visitor Name Role Phone ROBERT DAVIS Primary Care [...] O MEDEX BRONZ E Jun 06, 2001 [id number] OMAS PATIENT ANTHEM BCBS OF [place] (BLUECARD) MEDICARE SUPPLEMEN BHARGAVI PSUED O MEDEX BRONZ E Jun 06, 2001 [id number] [phone] [place] PAT[place] SUPPLEMEN BHARGAVI MEDEX BRONZ E Jun 06, 2001 [id number] [place] SU[place] BHARGAVI PSUED O MEDEX BRONZ E Jun 06, 2001 [id number] [phone] HUDRACHEL BOYER OMAS PATIENT BCBS OF [facility] MEDICARE SUPPLEMEN BHARGAVI PSUED O MEDEX BRONZ E Jun 06, 2001 [id number] HUDOCK,RACHEL OMAS PATIENT MEDICARE (WNR) MEDICARE (M) PART A May 07, 2001 PART A [id number] ([id number] HUDOCK,RACHEL OMAS PATIENT MEDICARE (WNR) MEDICARE (M) PART B May 07, 2001 PART B [id number] ([id number] HUDOCK,RACHEL OMAS PATIENT MEDICARE (WNR) MEDICARE (M) PART A May 07, 2001 PART A [id number] HUDOCK,RACHEL OMAS PATIENT MEDICARE (WNR) MEDICARE (M) PART B May 07, 2001 PART B [id number] HUDOCK,RACHEL OMAS PATIENT MEDICARE (WNR) MEDICARE () PART A May 07, 2001 PART A [id number] ([id number] HUDOCK,RACHEL OMAS PATIENT MEDICARE (WNR) MEDICARE (M) PART B May 07, 2001 PART B [id number] ([id number] HUDOCK,RACHEL OMAS PATIENT MEDICARE (WNR) MEDICARE (M) PART A May 07, 2001 PART A [id number] HUDOCK,RACHEL OMAS PATIENT MEDICARE (WNR) MEDICARE (M) PART B May 07, 2001 PART B [id number] HUDMERLIN,RACHEL OMAS PATIENT Selected Encounter This section includes the information on record at [place] for the Encounter. Date/Time Encounter Type Encounter Description Reason Provider Source Dec 29, 2023 11:00 AM SELF CARE MNGMENT TRAINING [facility] Nursing (RN / LP) ICD-10-CM G89.29 Other chronic pain MILLIE DAVENPORT [facility] Encounter Template Text not used by [place] Assessments - Encounter Diagnoses This section includes the primary and secondary diagnoses documented for the Encounter. Date/Time Primary/Secondary Diagnosis Diagnosis Name Provider Source Dec 29, 2023 02:28 PM PRIMARY Other chronic pain MILLIE DAVENPORT [place] [facility] [place] [facility] Dec 29, 2023 02:28 PM SECONDARY Type 2 diabetes mellitus without complications [facility] DAVENPORT [facility] Plan of Treatment: Future Appointments (+ 6 months) and Future Tests (+/- 45 days) The Plan of Treatment section includes future care activities for the patient from all [place] treatmentfacilities. This section includes future appointments and [...] 21, 2024 08:00 AM AMBULATORY - MEDICINE [facility] May 08, 2024 08:00 AM AMBULATORY - MEDICINE [facility] Lab Results: +/- 30 days of [...] Range Comment Dec 29, 2023 12:00 PM [facility] VITAMIN D (25-OH) Specimen Type: SERUM No comment entered. Ordering Provider: Crispin DAVIS Report Released Date/Time: November 17, 2023 09:28 AM Reporting [facility]: [facility] [address] [address] Performing Lab: [facility] [address] [address] VITAMIN D (25-OH) 20 ng/mL 20-50 Dec 29, 2023 12:00 PM [facility] CALCIUM Specimen Type: SERUM No comment entered. Ordering Provider: Crispin DAVIS Report Released Date/Time: November 17, 2023 09:28 AM Reporting Lab: [address] [address] Performing Lab: [facility] [address] [address] CALCIUM 8.9 mg/dL 8.5-10.2 Vital Signs: All taken on the encounter date This section contains inpatient and outpatient Vital Signs collected on the date of the Encounter. Date/Time Temperature Pulse Blood Pressure Respiratory Rate SP02 Pain Height Weight Body Mass Index Source Dec 29, 2023 11:00 AM 97.5 78 110/62 18 99 7 [place] [facility] [place] [facility] Social History: Smoking Status (Most current) [...] 17, 2023 08:31 AM VA-TOBACCO FOR[facility]ER [facility] Tobacco Use History This section includes a history of the smoking, or tobacco-related health factors, that were collected on or before the date of the Encounter. The data comes from the [place] facility where the Encounter took place. Date/Time Smoking Status/Tobac co Use Comment Facility November 17, 2023 08:31 AM VA-TOBACCO QUIT 15 YRS OR MORE [place] [facility] [place] [facility] May 07, 2022 09:00 AM VA-TOBACCO FORMER USER [place] [facility] [place] [facility] May 07, 2022 09:00 AM VA-TOBACCO QUIT 15 YRS OR MORE [place] [facility] [facility] May 21, 2021 08:00 AM VA-TOBACCO FORMER USER [facility] [place] [facility] May 21, 2021 08:00 AM VA-TOBACCO QUIT 15 YRS OR MORE [place] [facility] [facility] Apr 24, 2020 11:00 AM VA-TOBACCO FORMER USER [facility] [place] [facility] Apr 24, 2020 11:00 AM VA-TOBACCO QUIT 15 YRS OR MORE [place] [facility] [facility] Jan 15, 2018 10:57 AM QUIT TOBACCO USE > 7 YEARS AGO [place] [facility] [place] [facility] Dec 10, 2016 08:53 AM QUIT TOBACCO USE > 7 YEARS AGO [facility] Jul 19, 2015 10:22 AM QUIT TOBACCO USE > 7 YEARS AGO Quit about 40 years ago. [facility] November 14, 2004 10:00 AM HISTORY OF SMOKING [facility] November 14, 2004 10:00 AM LIFETIME NON-SMOKER [facility] Oct 25, 2003 10:34 AM HISTORY OF SMO[facility] Oct 07, 2002 09:41 AM HISTORY OF SMOKING [facility] Nov 03, 2001 10:31 AM QUIT TOBACCO USE > 7 YEARS AGO [facility] Jul 31, 2001 02:15 PM NON-TOBACCO USER Quit 20 yrs ago [facility] Advance Directives: All historical and current [...] Jul 03, 2023 ADVANCE DIRECTIVE RICHARD BAZZI [facility] Encounter Notes: All associated encounter notes This section contains the clinical notes associated to the Encounter. Date/Time Encounter Note(s) Provider Source Dec 29, 2023 02:36 PM PRIMARY CARE NOTE: LOCAL TITLE: SENT FAX/MAIL STANDARD TITLE: PRIMARY CARE NOTE DATE OF NOTE: DEC 29, 2023@14:36 ENTRY DATE: DEC 29, 2023@14:36:46 AUTHOR: MILLIE DAVENPORT EXP COSIGNER: URGENCY: STATUS: COMPLETED FAX/MAIL SENT Receipt Facilitys Name: [facility] POC Name: Fax sent on: Dec Fax Number Used(If Applicable): Mailing Address Used (If Applicable): Desc. Of Records Released (Include dates of records):MRI REPORT /es/ Millie MEEHAN [facility] thermometer tester Signed: 12/29/2023 14:37 MILLIE DAVENPORT [facility] Dec 29, 2023 02:35 PM ADDENDUM: LOCAL TITLE: Addendum STANDARD TITLE: ADDENDUM DATE OF NOTE: DEC 29, 2023@14:35:51 ENTRY DATE: DEC 29, 2023@14:35:52 AUTHOR: MILLIE DAVENPORT COSIGNER: URGENCY: STATUS: COMPLETED ALERTING ROBERT DAVIS FYI [place] is alert, oriented. Reports increased lower back pain. Rates pain 7/10 when standing or walking. He does not report much pain when sitting. [place] reports that his pain has affected his sleep and appetite. He went to see Dr Yeager last week. MRI ordered at [facility] will request report. Dr Yeager referred to Dr VICENTE Neurosurgeon. has an appt on 02/12/24 at 0930. [place] is taking Tylenol 500mg 2 tabs po twice a day with minimal effect. /genoveva/ Millie MEEHAN [facility] thermometer tester Signed: 12/29/2023 14:36 Receipt Acknowledged By: 12/29/2023 14:59 /es/ ROBERT DAVIS RN,MSN,LUMBER CUTTER-C HB NURSE PRACTITIONER --- Original Document --- 12/29/23 [facility] RN PROGRESS NOTE: Nursing Progress Note [...] NUTRITIONAL SUPPLEMENTATION Inactive Outpatient Medications Status 1) INSULIN SYRINGE 0.5ML 30G 12MM USE 1 SYRINGE SUBCUTANEOUSLY FOUR TIMES DAILY NEEDED FOR INSULIN INJECTIONS Active Non-VA Medications Status 1) Non-VA ASPIRIN 81MG EC TAB 81MG BY MOUTH ONCE DAILY ACTIVE 2) Non-VA MULTIVITAMIN/MINERALS CAP/TAB 1 TABLET BY ACTIVE MOUTH EVERY DAY 16 Total Medications MEDICATION REVIEW Medication review completed [...] Name, Address Length of visit in home: 30MIN Problem addressed for this visit: BACKPAIN , DM Specimen(s) collected during this visit: [id number]# Site: R ANTECUBITAL LABS OBTAINED WITHOUT INCIDENCE. NUHA WELL. SITE BENIGN. SPEC DELIVERED TO [facility] BY THIS PLATFORM ARCHITECT. LABS ACCESSIONED BY THIS PLATFORM ARCHITECT NURSING SUMMARY:RN visit performed in 's home for assessment of chronic disease mgt, CVCP assessment, medication reviewed with oversight, pain mgt, skin assessment, coping and home safety. Gaurang is alert, oriented. Reports increased lower back pain. Rates pain 7/10 when standing or walking. He does not report much pain when sitting. reports that his pain has affected his sleep and appetite. He went to see Dr Yeager last week. MRI ordered at [facility] will request report. Dr Yeager referred to Dr VICENTE Neurosurgeon. Gaurang has an appt on 02/12/24 at 0930. [place] is taking Tylenol 500mg 2 tabs po twice a day with minimal effect. BG average 192-200 [place] indep with insulin admin. Verbalizes ss of hypo/hyperglycemia with correct intervention. [place]'s nutrition is limited to frozen meals most of the time. Unable to obtain a correct weight today as is unsteady on feet. reports since back pain he has experienced weakness to BLE he is now using a cane and or walker. Denies any falls. Has [employer] Alert system near by . Working with home PT services through [facility] ([place]) Blood Pressure: 110/62 (12/29/2023 11:00) Pulse: 78 (12/29/2023 11:00) Respiration: 18 (12/29/2023 11:00) Temperature: 97.5 F [36.4 C] (12/29/2023 11:00) Pain Score: 7 (12/29/2023 11:00)Back pain described above EXAMINATION: Lungs:CTA NAD sats 99-100% RA Edema:R foot plus 1 chronic (foot drop) wearing properly fitting shoes HR:Reg Bowel/Bladder:Denies any issues Skin:CDI Home Safety lives alone , son checks in daily. Dtr n law prefills meds weekly FALLS NO INFECTIONS NO ER/HOSPITALIZATIONS NO Teaching/goals:[place] has ongoing complex medical needs and benefits from [facility] interdisciplinary management. and cg are included in decision making. All questions answered, education. regarding medications, disease mgt provided. [place] and caregiver verbalize understanding. will be free from falls, infections, and hospitalizations over the next 30 days. Patient verbalizes understanding to above and will call with any concerns or changes in condition. For emergent care call 911. Plan for next visit:January 15 chronic disease mgt /genoveva/ Millie MEEHAN HBSON thermometer tester Signed: 12/29/2023 14:29 MILLIE DAVENPORT [facility] Dec 29, 2023 02:30 PM MEDICATION MGT NOT E: LOCAL TITLE: MEDICATION RENEWAL STANDARD TITLE: MEDICATION MGT NOTE DATE OF NOTE: DEC 29, 2023@14:30 ENTRY DATE: DEC 29, 2023@14:30:13 AUTHOR: MILLIE DAVENPORT EXP COSIGNER: URGENCY: STATUS: COMPLETED THE FOLLOWING MEDICATION REQUIRES REFILLING PLEASE DOCUSATE NA 100MG CAP TAKE ONE CAPSULE BY MOUTH TWICE ACTIVE DAILY NEEDED TO SOFTEN STOOL EMPAGLIFLOZIN 25MG TAB TAKE ONE TABLET BY MOUTH ONCE ACTIVE (S) DAILY INSULIN SYRINGE 0.5ML 30G 12MM SC FOUR TIMES A DAY --SCRIPT /genoveva/ Millie MEEHAN HBSON thermometer tester Signed: 12/29/2023 14:34 Receipt Acknowledged By: 12/30/2023 12:36 /genoveva/ FABI MCKEON MD STAFF PHYSICIAN 12/29/2023 15:16 /es/ ROBERT DAVIS RN,MSN,LUMBER CUTTER-C [facility] NURSE PRACTITIONER MILLIE DAVENPORT [facility] Dec 29, 2023 02:17 PM [facility] NURSING NOTE: LOCAL TITLE: [facility] RN PROGRESS NOTE STANDARD TITLE: [facility] NURSING NOTE DATE OF NOTE: DEC 29, 2023@14:17 ENTRY DATE: DEC 29, 2023@14:17:39 AUTHOR: MILLIE DAVENPORT EXP COSIGNER: URGENCY: STATUS: [...] NUTRITIONAL SUPPLEMENTATION Inactive Outpatient Medications Status 1) INSULIN SYRINGE 0.5ML 30G 12MM USE 1 SYRINGE SUBCUTANEOUSLY FOUR TIMES DAILY NEEDED FOR INSULIN INJECTIONS Active Non-VA Medications Status 1) Non-VA ASPIRIN 81MG EC TAB 81MG BY MOUTH ONCE DAILY ACTIVE 2) Non-VA MULTIVITAMIN/MINERALS CAP/TAB 1 TABLET BY ACTIVE MOUTH EVERY DAY 16 Total Medications MEDICATION REVIEW Medication review completed [...] Name, Address Length of visit in home: 30MIN Problem addressed for this visit: BACKPAIN , DM Specimen(s) collected during this visit: [id number]# Site: R ANTECUBITAL LABS OBTAINED WITHOUT INCIDENCE. NUHA WELL. SITE BENIGN. SPEC DELIVERED TO [facility] BY THIS PLATFORM ARCHITECT. LABS ACCESSIONED BY THIS PLATFORM ARCHITECT NURSING SUMMARY:RN visit performed in 's home for assessment of chronic disease mgt, CVCP assessment, medication reviewed with oversight, pain mgt, skin assessment, coping and home safety. [place] is alert, oriented. Reports increased lower back pain. Rates pain 7/10 when standing or walking. He does not report much pain when sitting. reports that his pain has affected his sleep and appetite. He went to see Dr Yeager last week. MRI ordered at [facility] will request report. Dr Yeager referred to Dr VICENTE Neurosurgeon. Gaurang has an appt on 02/12/24 at 0930. is taking Tylenol 500mg 2 tabs po twice a day with minimal effect. BG average 192-200 indep with insulin admin. Verbalizes ss of hypo/hyperglycemia with correct intervention. [place]'s nutrition is limited to frozen meals most of the time. Unable to obtain a correct weight today as is unsteady on feet. reports since back pain he has experienced weakness to BLE he is now using a cane and or walker. Denies any falls. Has [employer] system near by . Working with home PT services through [facility] ([place]) Blood Pressure: 110/62 (12/29/2023 11:00) Pulse: 78 (12/29/2023 11:00) Respiration: 18 (12/29/2023 11:00) Temperature: 97.5 F [36.4 C] (12/29/2023 11:00) Pain Score: 7 (12/29/2023 11:00)Back pain described above EXAMINATION: Lungs:CTA NAD sats 99-100% RA Edema:R foot plus 1 chronic (foot drop) wearing properly fitting shoes HR:Reg Bowel/Bladder:Denies any issues Skin:CDI Home Safety lives alone , son checks in daily. Dtr n law prefills meds weekly FALLS NO INFECTIONS NO ER/HOSPITALIZATIONS NO Teaching/goals:[place] has ongoing complex medical needs and benefits from [facility] interdisciplinary management. [place] and cg are included in decision making. All questions answered, education. regarding medications, disease mgt provided. and caregiver verbalize understanding. [place] will be free from falls, infections, and hospitalizations over the next 30 days. Patient verbalizes understanding to above and will call with any concerns or changes in condition. For emergent care call 911. Plan for next visit:January 15 chronic disease mgt /genoveva/ Millie MEEHAN [facility] thermometer tester Signed: 12/29/2023 14:29 12/29/2023 ADDENDUM STATUS: COMPLETED ALERTING ROBERT FELIZ [place] is alert, oriented. Reports increased lower back pain. Rates pain 7/10 when standing or walking. He does not report much pain when sitting. reports that his pain has affected his sleep and appetite. He went to see Dr Yeager last week. MRI ordered at [facility] will request report. Dr Yeager referred to Dr VICENTE Neurosurgeon. Gaurang has an appt on 02/12/24 at 0930. is taking Tylenol 500mg 2 tabs po twice a day with minimal effect. /genoveva/ Millie MEEHAN [facility] thermometer tester Signed: 12/29/2023 14:36 Receipt Acknowledged By: * AWAITING SIGNATURE * ROBERT DAVIS [facility] [place] [facility]
--- OUTSIDE RECORDS SUMMARY | 2024-07-04 16:10 | XMS_ITS | Encounter Summary ---
Author Name [facility] [place] [facility] [place] Address [address] [place] [address] Care Team Providers Care Master Cosmetologist Name Role Phone ROHINI ROMANO Primary Care Provider Unav ailable RICHARD BAZZI [...] O MEDEX BRONZ E Jun 06, 2001 [id number] OMAS PATIENT ANTHEM BCBS OF CT (BLUECARD) MEDICARE SUPPLEMEN BHARGAVI PSUED O MEDEX BRONZ E Jun 06, 2001 [id number] OM[place] PATIENT [place] MED[place] SUPPLEMEN BHARGAVI MEDEX BRONZ E Jun 06, 2001 [id number] [place] PAT[place] SUPPLEMEN BHARGAVI PSUED O MEDEX BRONZ E Jun 06, 2001 [id number] [phone] HUDRACHEL BOYER OMAS PATIENT BCBS OF [facility] MEDICARE SUPPLEMEN BHARGAVI PSUED O MEDEX BRONZ E Jun 06, 2001 [id number] HUDOCK,RACHEL OMAS PATIENT MEDICARE (WNR) MEDICARE (M) PART A May 07, 2001 PART A [id number] HUDOCK,RACHEL OMAS PATIENT MEDICARE (WNR) MEDICARE (M) PART B May 07, 2001 PART B [id number] HUDOCK,RACHEL OMAS PATIENT MEDICARE (WNR) MEDICARE (M) PART A May 07, 2001 PART A [id number] HUDOCK,RACHEL OMAS PATIENT MEDICARE (WNR) MEDICARE (M) PART B May 07, 2001 PART B [id number] HUDMERLIN,RACHEL OMAS PATIENT MEDICARE (WNR) MEDICARE (M) PART A May 07, 2001 PART A [id number] HUDOCK,RACHEL OMAS PATIENT MEDICARE (WNR) MEDICARE (M) PART B May 07, 2001 PART B [id number] HUDOCK,RACHEL OMAS PATIENT MEDICARE (WNR) MEDICARE (M) PART A May 07, 2001 PART A [id number] HUDOCK,RACHEL OMAS PATIENT MEDICARE (WNR) MEDICARE (M) PART B May 07, 2001 PART B [id number] HUDRACHEL BOYER OMAS PATIENT Selected Encounter This section includes the information on record at [place] for the Encounter. Date/Time Encounter Type Encounter Description Reason Provider Source Dec 29, 2023 03:00 PM Outpatient Encounter TELEPHONE [facility] ICD-10-CM E11.42 Type 2 diabetes mellitus with diabetic polyneuropathy ROHINI ROMANO Mallory Encounter Template Text not used by [place] Assessments - Encounter Diagnoses This section includes the primary and secondary diagnoses documented for the Encounter. Date/Time Primary/Secondary Diagnosis Diagnosis Name Provider Source Dec 29, 2023 03:00 PM PRIMARY Type 2 diabetes mellitus with diabetic polyneuropathy ROHINI ROMANO [place] [facility] [place] [facility] Dec 29, 2023 03:00 PM SECONDARY Other chronic pain JOSE MIGUELMEY ROHINI [facility] Plan of Treatment: Future Appointments (+ 6 months) and Future Tests (+/- 45 days) The Plan of Treatment section includes future care activities for the patient from all [place] treatmentfacilities. This section includes future appointments and [...] AMBULATORY - MEDICINE [place] [facility] May 08, 2024 08:00 AM AMBULATORY - MEDICINE [facility] Lab Results: +/- 30 days of [...] Range Comment Dec 29, 2023 12:00 PM [facility] VITAMIN D (25-OH) Specimen Type: SERUM No comment entered. Ordering Provider: Crispin ROMANO Report Released Date/Time: November 17, 2023 09:28 AM Reporting Lab: [facility] [place] [facility] [address] [facility] [id number] Performing Lab: [facility] [address] [facility] [address] VITAMIN D (25-OH) 20 ng/mL 20-50 Dec 29, 2023 12:00 PM [facility] CALCIUM Specimen Type: SERUM No comment entered. Ordering Provider: Crispin ROMANO Report Released Date/Time: November 17, 2023 09:28 AM Reporting Lab: [facility] [address] Performing Lab: [facility] [place] [facility] [address] [facility] [address] CALCIUM 8.9 mg/dL 8.5-10.2 Vital Signs: All taken on the encounter date This section contains inpatient and outpatient Vital Signs collected on the date of the Encounter. Date/Time Temperature Pulse Blood Pressure Respiratory Rate SP02 Pain Height Weight Body Mass Index Source Dec 29, 2023 11:00 AM 97.5 78 110/62 18 99 7 [place] [facility] [place] [facility] Social History: Smoking Status (Most current) and [...] 2023 08:31 AM VA-TOBACCO FORMER USER [facility] Tobacco Use History This section includes a history of the smoking, or tobacco-related health factors, that were collected on or before the date of the Encounter. The data comes from the [place] facility where the Encounter took place. Date/Time Smoking Status/Tobac co Use Comment Facility November 17, 2023 08:31 AM VA-TOBACCO QUIT 15 YRS OR MORE [place] [facility] [place] [facility] May 07, 2022 09:00 AM VA-TOBACCO FORMER USER [place] [facility] [place] [facility] May 07, 2022 09:00 AM VA-TOBACCO QUIT 15 YRS OR MORE [place] [facility] [place] [facility] May 21, 2021 08:00 AM VA-TOBACCO FORMER USER [place] [facility] [place] [facility] May 21, 2021 08:00 AM VA-TOBACCO QUIT 15 YRS OR MORE [place] [facility] [place] [facility] Apr 24, 2020 11:00 AM VA-TOBACCO FORMER USER [place] [facility] [place] [facility] Apr 24, 2020 11:00 AM VA-TOBACCO QUIT 15 YRS OR MORE [place] [facility] [place] [facility] Jan 15, 2018 10:57 AM QUIT TOBACCO USE > 7 YEARS AGO [place] [facility] [place] [facility] Dec 10, 2016 08:53 AM QUIT TOBACCO USE > 7 YEARS AGO [facility] Jul 19, 2015 10:22 AM QUIT TOBACCO USE > 7 YEARS AGO Quit about 40 years ago. [facility] November 14, 2004 10:00 AM HISTORY OF SMOKING [facility] November 14, 2004 10:00 AM LIFETIME NON-SMOKER [facility] Oct 25, 2003 10:34 AM HISTORY OF SMOKING [facility] Oct 07, 2002 09:41 AM HISTORY OF SMOKING [facility] Nov 03, 2001 10:31 AM QUIT TOBACCO USE > 7 YEARS AGO [facility] Jul 31, 2001 02:15 PM NON-TOBACCO USER Quit 20 yrs ago [facility] Advance Directives: All historical and current [...] Jul 03, 2023 ADVANCE DIRECTIVE RICHARD BAZZI [facility] Encounter Notes: All associated encounter notes This section contains the clinical notes associated to the Encounter. Date/Time Encounter Note(s) Provider Source Dec 30, 2023 03:34 PM ADDENDUM: LOCAL TITLE: Addendum STANDARD TITLE: ADDENDUM DATE OF NOTE: DEC 30, 2023@15:34:50 ENTRY DATE: DEC 30, 2023@15:34:52 AUTHOR: ASHLEIGH ROMANO COSIGNER: URGENCY: STATUS: COMPLETED Please mail to patient. Thank you. /genoveva/ ROHINI ROMANO RN,MSN,SIGNS CLEANER-C [facility] NURSE PRACTITIONER Signed: 12/30/2023 15:34 Receipt Acknowledged By: 12/30/2023 15:45 /genoveva/ MONSE DUBON [facility] SWORD SWALLOWER --- Original Document --- 12/30/23 PATIENT LETTER (B): [facility] [address] [place] [id number] GONZALO VEGA [address] [place], [place] [address] Date:DEC 30, 2023 Dear GONZALO VEGA, We are pleased to inform you that your labs were normal. Continue taking vit D 50mcg daily. No further intervention is required at this time. LAB CHEMISTRY & HEMATOLOGY Collection DT Specimen Test Name Result Units Ref Range 12/29/2023 12:00 SERUM CALCIUM 8.9 mg/dL 8.5 - 10.2 VITAMIN D (25-OH) 20 ng/mL 20 - 50 Please call [phone] if you have any questions or concerns. Sincerely, Rohini Romano Nurse Practitioner [facility] [address] [place] [id number] fax: [phone] Upcoming Appointments: 01/21/2024 08:00 COM CARE-GEC SKILLED C 02/05/2024 11:00 CWM/NO/OPTOMETRY/MERHAR 07/13/2024 11:00 CWM/NO/PODIATRY A APPOINTMENT ABBREVIATION BARRY == (SPOPC OR SO = [place] [address] [place] [address]) (GOPC OR GO = [address]) (NHM or NO = [facility]) (VVC - Video Call) (Tel-X Telephone Visit) ( - Telehealth) [facility] Dec 30, 2023 08:24 AM LETTERS: LOCAL TITLE: PATIENT LETTER (B) STANDARD TITLE: LETTERS DATE OF NOTE: DEC 30, 2023@08:24 ENTRY DATE: DEC 30, 2023@08:24:30 AUTHOR: ASHLEIGH ROMANO EXP COSIGNER: URGENCY: STATUS: COMPLETED PATIENT LETTER (B) Has ADDENDA [facility] [address] [place] [id number] GONZALO VEGA [address] [place], [place] [address] Date:DEC 30, 2023 Dear GONZALO VEGA, We are pleased to inform you that your labs were normal. Continue taking vit D 50mcg daily. No further intervention is required at this time. LAB CHEMISTRY & HEMATOLOGY Collection DT Specimen Test Name Result Units Ref Range 12/29/2023 12:00 SERUM CALCIUM 8.9 mg/dL 8.5 - 10.2 VITAMIN D (25-OH) 20 ng/mL 20 - 50 Please call [phone] if you have any questions or concerns. Sincerely, Rohini Romano Nurse Practitioner [facility] [address] [place] [id number] fax: [phone] Upcoming Appointments: 01/21/2024 08:00 COM CARE-GEC SKILLED C 02/05/2024 11:00 CWM/NO/OPTOMETRY/MERHAR 07/13/2024 11:00 CWM/NO/PODIATRY A APPOINTMENT ABBREVIATION BARRY == (SPOPC OR SO = [place], [address] [facility]) (GOPC OR GO = [address]) (NHM or NO = [facility]) (VVC - Video Call) (Tel-X Telephone Visit) ( - Telehealth) 12/30/2023 ADDENDUM STATUS: COMPLETED Please mail to patient. Thank you. /genoveva/ ROHINI ROMANO RN,MSN,SIGNS CLEANER-C [facility] NURSE PRACTITIONER Signed: 12/30/2023 15:34 Receipt Acknowledged By: * AWAITING SIGNATURE * MONSE DUBON [place] [facility] [place] [facility] Dec 30, 2023 08:11 AM ADMINISTRATIVE NOTE: LOCAL TITLE: ADMINISTRATIVE NOTE STANDARD TITLE: ADMINISTRATIVE NOTE DATE OF NOTE: DEC 30, 2023@08:11 ENTRY DATE: DEC 30, 2023@08:11:13 AUTHOR: ASHLEIGH ROMANO EXP COSIGNER: URGENCY: STATUS: COMPLETED SUBJECT: MRI MRI Medical Record# [id number] Name: GONZALO VEGA Address: Phone: : 1935 Age: 88 Doctor: ZACK MORALES MD Location: [facility] Exam Date: 09/17/2018 Time: 1602 MAGNETIC [facility]ONANCE [place] [id number] SYMPTOM,HX? BILATERAL LEG WEAKNESS, S/P SURGERY 2018 EXAMINATION: MR LUMBAR SPINE WITHOUT AND WITH CONTRAST CLINICAL INFORMATION: Bilateral leg weakness. Prior surgery in 2018. COMPARISON: Presurgical MRI of the lumbar spine from 09/10/2017 TECHNIQUE: MRI of the lumbar spine was obtained using routine sequences with and without contrast. Intravenous contrast: Gadavist 6.5 mL. FINDINGS: VERTEBRAL BODIES AND PARASPINAL STRUCTURES: There are 5 nonrib-bearing lumbar type vertebral bodies. Vertebral body height is maintained. There is 2 to 3 mm of anterolisthesis of L4 on LS. Otherwise sagittal alignment is maintained. In the interval since the prior study there has been discectomy with interbody fusion device placement, right hemilaminectomy and partial facetectomy as well as bilateral posterior instrumented fusion at L4-L5. There is near complete intervertebral disc height loss at L5-Sl, slightly progressive from the prior. The Ll-L2, L2-L3, and L3-L4 discs remain fairly normal in height and hydration. There is artifact from the hardware at the L4 and LS levels. Elsewhere marrow signal appears preserved. There appear to be faint edematous endplate changes at L5- Sl. The aorta is normal in caliber. No adenopathy is appreciated. Paraspinal muscle bulk is symmetric. There is no evidence of hydronephrosis. No rim- enhancing paraspinal fluid collections. The imaged SI joints are mildly degenerated. CONUS MEDULLARIS AND CAUDA EQUINA: The conus terminates normally at Medical Record# [id number] Name: GONZALO VEGA Address: Phone: : 1935 Age: 88 Doctor: ZACK MORALES MD Location: [facility] Exam Date: 09/17/2018 Time: 1602 the superior endplate of L2. No abnormal intrathecal signal or enhancement. No clumping of the nerve roots. SPINAL LEVELS: T12-Ll, Ll-L2, L2-L3: Disc morphology appears normal and there is no significant canal or foraminal stenosis. Mild facet hypertrophy. L3-L4: There is disc bulge, facet hypertrophy, thickening of ligamentum flavum resulting in mild trefoil type canal stenosis, unchanged as well as mild bilateral foraminal stenosis, with facet osteophytes continuing to abut the dorsal margins of the exiting L3 nerve roots. L4-L5: Postsurgical changes as above. The previously present high-grade canal stenosis is no longer evident. There is right-sided epidural enhancement partially surrounding the traversing right LS nerve root. There is stable anterolisthesis with disc osteophyte complex. Both foramina are mildly narrowed inferiorly with disc osteophyte complex continuing to abut the exiting L4 nerve roots, with perhaps slightly less mass effect than on the presurgical study. L5-S1: There is disc osteophyte complex with moderate facet hypertrophy, and nodular thickening of the ligamentum flavum as well as facet effusions. There is continued effacement of the subarticular recesses impinging upon the traversing S1 nerve roots as well as moderate to severe bilateral foraminal stenosis impinging upon the exiting LS nerve roots. IMPRESSION: L4-L5: Intervai d scectomy, nterbody fus on dev ce piacement, r ght hem jerod nectomy/part ai facetectomy, and b iaterai hand scudder or nstrumented fus on. The h gh-grade canai stenos s prev ousiy present at th s ieve is no ionger ev dent. There s r ght-s ded ep durai enhancement compat bie w th granuiat on t ssue/scar, part aiiy surround ng the bashir ng r ght LS nerve root. The aurora na areb iateraiiy narrowed w th d sc osteophyte compiex abutt ng the ex t ng L4 nerve roots, appear ng si ghtiy mproved from the pr or. L5-S1: There s muit factor ai effacement of the subart cuiar recesses mp ng ng upon the bashir ng S1 nerve roots as weii as h gh-grade b iaterai aurora winnie stenos s mp ng ng upon the ex t ng LS nerve roots, stabie. Fa nt edematous endpiate change. L3-L4: There s b iaterai narrow ng of the aurora na w th facet osteophytes abutt ng the dorsai wenceslao ns of the ex t ng L3 nerve roots, stabie. REPORT SIGNED IN OTHER VENDOR SYSTEM 09/21/2018 Reported By: LEN ARIAS M.D. end of copy and paste /genoveva/ ROHINI ROMANO RN,MSN,SIGNS CLEANER-C [facility] NURSE PRACTITIONER Signed: 12/30/2023 12:47 Receipt Acknowledged By: 12/30/2023 15:05 /genoveva/ Millie MEEHAN [facility] environmental journalist LATASHA ROMANO [place] [facility] Dec 29, 2023 03:00 PM [facility] NOTE: LOCAL TITLE: [facility] TELEPHONE NOTE STANDARD TITLE: HB NOTE DATE OF NOTE: DEC 29, 2023@15:00 ENTRY DATE: DEC 29, 2023@15:00:24 AUTHOR: ASHLEIGH ROMANO COSIGNER: URGENCY: STATUS: COMPLETED S:Called GONZALO VEGA PHONE NUMBER [CELLULAR] - [phone] PATIENT PHONE - TelePhone visit for f/u LBP. 'Reports increased lower back pain. Rates pain 7/10 when standing or walking. He does not report much pain when sitting. Delta reports that his pain has affected his sleep and appetite. He went to see Dr Yeager last week. [place] [facility] Yeager referred to Dr GRACIA Neurosurgeon.' 7/10 when standing or walking 2/10 w rest continues w PT some benefit declines use of topical pain medication as does not feel will help neurosurgeon Dr. Gracia 02/06/24 or 02/12/24 Dr Yeager [facility] P[facility] O: A+Ox4, thought logical, speech baseline, breathing sounds unlabored. A/P: >Osteoarthritis >cervicalgia: History of surgery 06/27/22 ACDF >lumbago: History of lumbar stenosis, surgical decompression in 2018 -neuropathy ##-cont w PT ##c/w tylenol 1gm TID PRN ##cont w neurontin 300mg qhs (feels this does is sufficent at this time) Discussed empowered relief mehnaz, not currently interested. declines heat pack, topical pain medication Will discuss POC w patient as unsure if he is a good surgical candidate f/u in Feb after see by Dr. Gracia Time spent: 11 min Upcoming Appointments: 01/21/2024 08:00 COM CARE-C SKILLED [facility] 02/05/2024 11:00 CWM/NO/OPTOMETRY/MERHAR 07/13/2024 11:00 CWM/NO/PODIATRY A (x)medications -patient reports taking as prescribed No barriers; Patient/family understands and agrees to current treatment plan. If pt has any questions, concerns, or changes in current health status he/she will call or [facility] Medication Reconciliation: Outpatient Medication Reconciliation No [...] medications discontinued are documented in this note. /genoveva/ ROHINI ROMANO RN,MSN,SIGNS CLEANER-C [facility] NURSE PRACTITIONER Signed: 12/29/2023 15:12 Receipt Acknowledged By: 12/29/2023 15:43 /genoveva/ Millie DUENASN [facility] environmental journalist LATASHA ROMANO [facility]
--- OUTSIDE RECORDS SUMMARY | 2024-07-04 16:10 | XMS_ITS | Encounter Summary ---
Author Name [facility] [place] Address [address] [place] [address] Care Team Providers Care Stonemason Helper Name Role Phone ROBERT DAVIS Primary Care [...] O MEDEX BRONZ E Jun 06, 2001 [id number] OMAS PATIENT ANTHEM BCBS OF [place] (BLUECARD) MEDICARE SUPPLEMEN BHARGAVI PSUED O MEDEX BRONZ E Jun 06, 2001 [id number] [phone] OM[place] PATIENT [place]BS [place] MED[place] SUPPLEMEN BHARGAVI MEDEX BRONZ E Jun 06, 2001 [id number] [place] SUPPLEMEN BHARGAVI PSUED O MEDEX BRONZ E Jun 06, 2001 [id number] [phone] HUDRACHEL BOYER OM[place] PATIENT [place] MEDICARE SUPPLEMEN BHARGAVI PSUED O MEDEX BRONZ E Jun 06, 2001 [id number] HUDOCK,TH OMAS PATIENT MEDICARE (WNR) MEDICARE (M) PART A May 07, 2001 PART A [id number] HUDOCK,RACHEL OMAS PATIENT MEDICARE (WNR) MEDICARE (M) PART B May 07, 2001 PART B [id number] HUDOCK,RACHEL OMAS PATIENT MEDICARE (WNR) MEDICARE (M) PART A May 07, 2001 PART A [id number] HUDOCK,RACHEL OMAS PATIENT MEDICARE (WNR) MEDICARE (M) PART B May 07, 2001 PART B [id number] HUDOCK,RACHEL OMAS PATIENT MEDICARE (WNR) MEDICARE (M) PART A May 07, 2001 PART A [id number] HUDOCK,RACHEL OMAS PATIENT MEDICARE (WNR) MEDICARE (M) PART B May 07, 2001 PART B [id number] HUDOCK,RACHEL OMAS PATIENT MEDICARE (WNR) MEDICARE (M) PART A May 07, 2001 PART A [id number] HUDOCK,RACHEL OMAS PATIENT MEDICARE (WNR) MEDICARE (M) PART B May 07, 2001 PART B [id number] HUDMERLIN,RACHEL OMAS PATIENT Selected Encounter This section includes the information on record at [place] for the Encounter. Date/Time Encounter Type Encounter Description Reason Provider Source Dec 10, 2023 11:30 AM HHCP-SERV OF OT,EA 15 MIN HBPC - THERAPIST ICD-10-CM R26.9 Unspecified abnormalities of gait and mobility CLOTILDE ARTHUR Encounter Template Text not used by [place] Assessments - Encounter Diagnoses This section includes the primary and secondary diagnoses documented for the Encounter. Date/Time Primary/Secondary Diagnosis Diagnosis Name Provider Source Dec 11, 2023 05:17 PM PRIMARY Unspecified abnormalities of gait and mobility CLOTILDE ARTHUR [facility] Plan of Treatment: Future Appointments (+ 6 months) and Future Tests (+/- 45 days) The Plan of Treatment section includes future care activities for the patient from all [place] treatmentfaatrium healthities. This section includes future appointments and future [...] 23, 2023 11:00 AM AMBULATORY - MEDICINE [facility] NTRL TRN [facility] Jan 21, 2024 08:00 AM AMBULATORY MEDICINE [facility] NTRL TRN [facility] May 08, 2024 08:00 AM AMBULATORY MEDICINE [facility] Lab Results: +/- 30 days [...] Range Comment Dec 29, 2023 12:00 PM [facility] VITAMIN D (25-OH) Specimen Type: SERUM No comment entered. Ordering Provider: Crispin DAVIS Report Released Date/Time: November 17, 2023 09:28 AM Reporting Lab: [facility] [address] [address] Performing Lab: [facility] [address] [address] VITAMIN D (25-OH) 20 ng/mL 20-50 Dec 29, 2023 12:00 PM [facility] CALCIUM Specimen Type: SERUM No comment entered. Ordering Provider: Crispin DAVIS Report Released Date/Time: November 17, 2023 09:28 AM Reporting Lab: [address] [address] Performing Lab: [facility] [address] [facility] [address] CALCIUM 8.9 mg/dL 8.5-10.2 November 19, 2023 10:00 AM [facility] HEMOGLOBIN A1C PANEL Specimen Type: BLOOD [...] Aug 25, 2023 07:46 AM Reporting Lab: [address] [address] Performing Lab: [address] [address] HEMOGLOBIN A1C 6.8 H 4.0-5.6 November 19, 2023 10:00 AM [facility] TSH Specimen Type: SERUM No comment entered. Ordering Provider: PADMA URIBE Report Released Date/Time: Aug 29, 2023 07:37 PM Reporting Lab: [address] [address] Performing Lab: [address] [address] TSH 2.60 u[IU]/mL 0.35-5.00 November 19, 2023 10:00 AM [facility] URIC ACID Specimen Type: SERUM No comment entered. Ordering Provider: PADMA URIBE Report Released Date/Time: Aug 29, 2023 07:37 PM Reporting Lab: [address] [address] Performing Lab: [address] [address] URIC ACID 9.2 mg/dL H 3.5-7.2 November 19, 2023 10:00 AM [facility] BASIC METABOLIC PANEL (non-fasting) Specimen Type: SERUM No comment entered. Ordering Provider: FABI MCKEON Report Released Date/Time: Aug 25, 2023 07:46 AM Reporting Lab: [facility] [address] [facility] [address] Performing Lab: [facility] [address] [address] UREA NITROGEN 45 mg/dL H 7-25 GLUCOSE [...] took place. Date/Time Current Smoking Status Comment [facility] it November 17, 2023 08:31 AM VA-TOBACCO FORMER USER [facility] Tobacco Use History This section includes a history of the smoking, or tobacco-related health factors, that were collected on or before the date of the Encounter. The data comes from the [place] facility where the Encounter took place. Date/Time Smoking Status/Tobac co Use Comment Facility November 17, 2023 08:31 AM VA-TOBACCO QUIT 15 YRS OR MORE [place] [facility] May 07, 2022 09:00 AM [facility] May 07, 2022 09:00 AM VA-TOBACCO QUIT 15 YRS OR MORE [place] CNTRL [facility] May 21, 2021 08:00 AM VA-TOBACCO [facility] May 21, 2021 08:00 AM VA-TOBACCO QUIT 15 YRS OR MORE [facility] Apr 24, 2020 11:00 AM VA-TOBACCO FOR[facility]ER [facility] Apr 24, 2020 11:00 AM VA-TOBACCO QUIT 15 YRS OR MORE [facility] Jan 15, 2018 10:57 AM QUIT TOBACCO USE > 7 YEARS AGO [facility] Dec 10, 2016 08:53 AM QUIT TOBACCO USE > 7 YEARS AGO [facility] Jul 19, 2015 10:22 AM QUIT TOBACCO USE > 7 YEARS AGO Quit about 40 years ago. [facility] November 14, 2004 10:00 AM HISTORY OF SMOKING [facility] November 14, 2004 10:00 AM LIFETIME NON-SMOKER [facility] Oct 25, 2003 10:34 AM HISTORY OF SMOKING [facility] Oct 07, 2002 09:41 AM HISTORY OF SMOKING [facility] Nov 03, 2001 10:31 AM QUIT TOBACCO USE > 7 YEARS AGO [facility] Jul 31, 2001 02:15 PM NON-TOBACCO USER Quit 20 yrs ago [facility] Advance Directives: All historical and current [...] Jul 03, 2023 ADVANCE DIRECTIVE [facility] Encounter Notes: All associated encounter notes This section contains the clinical notes associated to the Encounter. Date/Time Encounter Note(s) Provider Source Dec 10, 2023 11:30 AM OCCUPATIONAL MEDIC INE NOTE: LOCAL TITLE: [facility] OCCUPATIONAL THERAPY NOTE STANDARD TITLE: OCCUPATIONAL MEDICINE NOTE DATE OF NOTE: DEC 10, 2023@11:30 ENTRY DATE: DEC 11, 2023@17:08:40 AUTHOR: CLOTILDE ARTHUR COSIGNER: URGENCY: STATUS: COMPLETED OCCUPATIONAL THERAPY PROGRESS NOTE Date: 6/5/204 Time: 11:30-12:15 pm Treatment Diagnosis: Type 1 Diabetes Mellitus with Diabetic Chronic Kidney Disease(ICD-10-CM E10.22) Total Visit Minutes: 45 PATIENT IDENTIFIERS: name, facial recognition VITALS: not formally assessed Pain: reports pain free at rest but increased with ambulation; has appointment 12/12/23 with jesús vazquez MD to address Falls: no Treatment: OT home visit to follow-up on recently delivered jessi transfer bench and transport wheelchair. [place] was unsure if he liked new model chair. Trialed in tub and practiced transfer. New chair allows for more space in tub. [place] is still required to step over tub but this is his preference. Suggested he have DRY KILN FEEDER present when showering which he currently does not do. He will consider my suggestion. Discussed exploring [facility] anne for tub cut out/modification however Gaurang is not interested at this time. received transport wheelchair which therapist unpacked and assembled this date. Educated [place] on wheelchair safety and instructed in how to fold for transport. EDUCATION: as noted above for transport wheelchair and tub transfers. GOALS: [place] will: 1). receive and use elastic shoe laces.- in progress 2). receive and use shower seat instead of tub transfer bench.-MET 3). receive and use transport wheelchair as needed for community outings.-MET Plan: OT 2-4 visits for provision and teaching with adaptive equipment as noted above. Continued assessment of home safety and equipment needs. /genoveva/ Clotilde Arthur [facility] Occupational Therapist Signed: 12/11/2023 17:17 CLOTILDE ARTHUR [place] CNTRL WSTRN [facility]
--- OUTSIDE RECORDS SUMMARY | 2024-07-04 16:10 | XMS_ITS ---
Author Name [facility] [place] Address [address] [place] [id number] Care Team Providers Care Camp Program Director Name Role Phone ROBERT DAVIS Primary Care [...] O MEDEX BRONZ E Jun 06, 2000 [id number] OMAS PATIENT ANTHEM BCBS OF [place] (BLUECARD) MEDICARE SUPPLEMEN BHARGAVI PSUED O MEDEX BRONZ E Jun 06, 2001 [id number] OM[place] PAT[place] MED[place] SUPPLEMEN BHARGAVI MEDEX BRONZ E Jun 06, 2001 [id number] [phone] [place]PPLEMEN BHARGAVI PSUED O MEDEX BRONZ E Jun 06, 2001 [id number] HUDRACHEL BOYER OMAS PATIENT BCBS OF [facility] MEDICARE SUPPLEMEN BHARGAVI PSUED O MEDEX BRONZ E Jun 06, 2001 [id number] HUDOCK,RACHEL OMAS PATIENT MEDICARE (WNR) MEDICARE (M) PART A May 07, 2001 PART A [id number] HUDOCK,RACHEL OMAS PATIENT MEDICARE (WNR) MEDICARE (M) PART B May 07, 2001 PART B [id number] HUDOCK,RACHEL OMAS PATIENT MEDICARE (WNR) MEDICARE (M) PART A May 07, 2001 PART A [id number] ([id number] HUDOCK,RACHEL OMAS PATIENT MEDICARE (WNR) MEDICARE () PART B May 07, 2001 PART B [id number] ([id number] HUDOCK,RACHEL OMAS PATIENT MEDICARE (WNR) MEDICARE () PART A May 07, 2001 PART A [id number] HUDOCK,RACHEL OMAS PATIENT MEDICARE (WNR) MEDICARE (M) PART B May 07, 2001 PART B [id number] HUDOCK,RACHEL OMAS PATIENT MEDICARE (WNR) MEDICARE () PART A May 07, 2001 PART A [id number] HUDOCK,RACHEL OMAS PATIENT MEDICARE (WNR) MEDICARE () PART B May 07, 2001 PART B [id number] HUDOCK,RACHEL OMAS PATIENT Selected Encounter This section includes the information on record at [place] for the Encounter. Date/Time Encounter Type Encounter Description Reason Provider Source Jan 16, 2024 10:00 AM SELF CARE MNGMENT TRAINING [facility] Nursing (RN / LP) ICD-10-CM G89.29 Other chronic pain MILLIE DAVENPORT [facility] Encounter Template Text not used by [place] Assessments - Encounter Diagnoses This section includes the primary and secondary diagnoses documented for the Encounter. Date/Time Primary/Secondary Diagnosis Diagnosis Name Provider Source Jan 18, 2024 08:07 AM PRIMARY Other chronic pain MILLIE DAVENPORT [place] CN[place] [facility] [place] [facility] Jan 18, 2024 08:07 AM SECONDARY Type 2 diabetes mellitus without complications [facility]PORT [facility] Plan of Treatment: Future Appointments (+ 6 months) and Future Tests (+/- 45 days) The Plan of Treatment section includes future care activities for the patient from all [place] treatmentfacilities. This section includes future appointments and [...] 21, 2024 08:00 AM AMBULATORY - [facility]IC[facility] May 08, 2024 08:00 AM [facility] Jul 13, 2024 11:00 AM AMBULATORY MEDICINE [facility] Lab Results: +/- 30 days of the [...] Range Comment Dec 29, 2023 12:00 PM [facility] VITAMIN D (25-OH) Specimen Type: SERUM No comment entered. Ordering Provider: Crispin DAVIS Report Released Date/Time: November 17, 2023 09:28 AM Reporting Lab: [address] [address] Performing Lab: [address] [address] VITAMIN D (25-OH) 20 ng/mL 20-50 Dec 29, 2023 12:00 PM [facility] CALCIUM Specimen Type: SERUM No comment entered. Ordering Provider: Crispin DAVIS Report Released Date/Time: November 17, 2023 09:28 AM Reporting Lab: [address] [place] [address] Performing Lab: [place] [facility] [address] [address] CALCIUM 8.9 mg/dL 8.5-10.2 Vital Signs: All taken on the encounter date This section contains inpatient and outpatient Vital Signs collected on the date of the Encounter. Date/Time Temperature Pulse Blood Pressure Respiratory Rate SP02 Pain Height Weight Body Mass Index Source Jan 16, 2024 10:00 AM 97.8 62 122/78 18 98 0 [place] [facility] Social History: Smoking Status (Most current) and [...] took place. Date/Time Current Smoking Status Comment [facility] it November 17, 2023 08:31 AM VA-TOBACCO FOR[facility] Tobacco Use History This section includes a history of the smoking, or tobacco-related health factors, that were collected on or before the date of the Encounter. The data comes from the [place] facility where the Encounter took place. Date/Time Smoking Status/Tobac co Use Comment Facility November 17, 2023 08:31 AM VA-TOBACCO QUIT 15 YRS OR MORE [place] [facility] May 07, 2022 09:00 AM VA-TOBACCO FORMER USER [place] [facility] May 07, 2022 09:00 AM VA-TOBACCO QUIT 15 YRS OR MORE [place] [facility] May 21, 2021 08:00 AM VA-TOBACCO FORMER USER [place] [facility] May 21, 2021 08:00 AM VA-TOBACCO QUIT 15 YRS OR MORE [place] [facility] Apr 24, 2020 11:00 AM VA-TOBACCO FORMER USER [place] [facility] Apr 24, 2020 11:00 AM VA-TOBACCO QUIT 15 YRS OR MORE [place] [facility] Jan 15, 2018 10:57 AM QUIT TOBACCO USE > 7 YEARS AGO [facility] Dec 10, 2016 08:53 AM QUIT TOBACCO USE > 7 YEARS AGO [facility] Jul 19, 2015 10:22 AM QUIT TOBACCO USE > 7 YEARS AGO Quit about 40 years ago. [facility] November 14, 2004 10:00 AM H[facility] OF SMOKING [facility] November 14, 2004 10:00 AM LIFETIME NON-SMOKER [facility] Oct 25, 2003 10:34 AM HISTORY OF SMOKING [facility] Oct 07, 2002 09:41 AM H[facility] OF SMOKING [facility] Nov 03, 2001 10:31 AM QUIT TOBACCO USE > 7 YEARS AGO [facility] Jul 31, 2001 02:15 PM NON-TOBACCO USER Quit 20 yrs ago [facility] Advance Directives: All historical and [...] 2023 ADVANCE DIRECTIVE [facility] Encounter Notes: All associated encounter notes This section contains the clinical notes associated to the Encounter. Date/Time Encounter Note(s) Provider Source Jan 20, 2024 08:38 AM ADDENDUM: LOCAL TITLE: Addendum STANDARD TITLE: ADDENDUM DATE OF NOTE: JAN 20, 2024@08:38:05 ENTRY DATE: JAN 20, 2024@08:38:06 AUTHOR: GLADYS CLANCY COSIGNER: URGENCY: STATUS: COMPLETED Adding SC RN. /genoveva/ GLADYS CLANCY LPN Specialty Care Signed: 01/20/2024 08:38 Receipt Acknowledged By: 01/20/2024 10:20 /genoveva/ JULIANNE RODRIGUEZ RN --- Original Document --- 01/18/24 MEDICATION RENEWAL: IS REQUESTING REFILL/RENEWAL OF TEST STRIPS ? ACCUCHECK 360 METER /genoveva/ Millie AMADO waredresser Signed: 01/18/2024 08:09 Receipt Acknowledged By: * AWAITING SIGNATURE * FABI MCKEON 01/20/2024 08:38 /genoveva/ GLADYS CLANCY LPN Specialty Care 01/20/2024 ADDENDUM STATUS: UNSIGNED You may not VIEW this UNSIGNED Addendum. GLADYS CLANCY [place]L [place] [facility] Jan 18, 2024 08:08 AM MEDICATION MGT NOTE: LOCAL TITLE: MEDICATION RENEWAL STANDARD TITLE: MEDICATION MGT NOTE DATE OF NOTE: JAN 18, 2024@08:08 ENTRY DATE: JAN 18, 2024@08:08:56 AUTHOR: MILLIE DAVENPORT EXP COSIGNER: URGENCY: STATUS: COMPLETED MEDICATION RENEWAL Has ADDENDA IS REQUESTING REFILL/RENEWAL OF TEST STRIPS ? ACCUCHECK 360 METER /genoveva/ Millie AMADO waredresser Signed: 01/18/2024 08:09 Receipt Acknowledged By: 01/23/2024 14:23 /eliz MCKEON MD STAFF PHYSICIAN 01/20/2024 08:38 /genoveva/ GLADYS CLANCY LPN Specialty Care 01/20/2024 ADDENDUM STATUS: COMPLETED Adding SC RN. /genoveva/ GLADYS CLANCY LPN Specialty Care Signed: 01/20/2024 08:38 Receipt Acknowledged By: 01/20/2024 10:20 /genoveva/ JULIANNE RODRIGUEZ RN 01/20/2024 ADDENDUM STATUS: COMPLETED medication has been renewed and waiting for doctor signature /eliz RODRIGUEZ RN Signed: 01/20/2024 10:21 01/23/2024 ADDENDUM STATUS: COMPLETED Called pt and verified he has an accucheck guide me meter. /eliz MCKEON MD STAFF PHYSICIAN Signed: 01/23/2024 14:25 [place] [facility] Jan 16, 2024 05:24 PM [facility] NURSING NOTE: LOCAL TITLE: HBPC RN PROGRESS NOTE STANDARD TITLE: [facility] NURSING NOTE DATE OF NOTE: JAN 16, 2024@17:24 ENTRY DATE: JAN 16, 2024@17:24:22 AUTHOR: MILLIE DAVENPORT EXP COSIGNER: URGENCY: STATUS: [...] ACTIVE MOUTH ONCE DAILY FOR HIGH CHOLESTEROL 4) [...] TABLET BY MOUTH ONCE ACTIVE DAILY FOR TYPE 2 DIABETES MELLITUS 8) FUROSEMIDE 20MG TAB TAKE ONE TABLET BY MOUTH EVERY ACTIVE MORNING TO REMOVE FLUID/CONTROL BLOOD PRESSURE 9) GABAPENTIN 300MG CAP TAKE ONE CAPSULE BY MOUTH AT HOLD BEDTIME FOR NERVE PAIN 10) INSULIN SYRINGE 0.5ML 30G 12MM USE 1 SYRINGE ACTIVE SUBCUTANEOUSLY FOUR TIMES DAILY NEEDED FOR INSULIN INJECTIONS 11) INSULIN,ASPART,HUMAN 100 UNIT/ML INJ INJECT 5 UNITS ACTIVE SUBCUTANEOUSLY EVERY MORNING NEEDED AND INJECT 3 UNITS AT NOON AND INJECT 6 UNITS EVERY EVENING BEFORE SUPPER FOR DIABETES 12) INSULIN,GLARGINE-YFGN 100UNIT/ML INJ INJECT 16 UNITS ACTIVE SUBCUTANEOUSLY ONCE DAILY FOR DIABETES 13) LISINOPRIL 20MG TAB TAKE ONE TABLET BY MOUTH ONCE ACTIVE DAILY TO CONTROL BLOOD PRESSURE 14) NUTR SUPL [...] home: 30min Problem addressed for this visit: DM mgt NURSING SUMMARY:RN visit performed in 's home for assessment of chronic disease mgt, CVCP assessment, medication reviewed with oversight, pain mgt, skin assessment, coping and home safety. Nadine is alert,oriented, pleasant mood. This news writer noted a large bruise with an abrasion on nadine's L upper arm. He reported that he was in the yard trimming the bushes and a branch caught him. His son was with him. NO ss of infection noted. Nadine reports lower back pain. He recently had an MRI ordered by Dr Yeager that showed spinal stenosis and compression in the lumbar region. Nadine has an appt with Neurosurgeon Dr Gracia on Feb 11 at 930am. Currently, nadine reports to taking Tylenol 500mg 2 tabs twice a day with minimal relief. Nadine is ambulatory gait sometimes unsteady. He is encouraged to use his walker at all times although he does not use it in the home as it is too large . Nadine does have a cane and does use it at times in the home. He has been free from falls. All medications reconciled with medication list in the home. Nadine's dtn n law prefills medication box weekly. Nadine has a hx of HTN. BP managed with current medication regime. [place]'s diet consists of mostly frozen prepared meals as he it is not safe for him to use the stove. receives assistance with adls and iadls . BG 7 day avg 151 BG 14day avg 176 FBG 207 [place] is indep with monitoring BG and taking insulin . denies any ss of hyperglycemia or hypoglycemia. reinforced sick days, appropriate diet , foot care, and intervention of hypoglycemia reaction. [place] verbalizes understanding. Blood Pressure: 122/78 (01/16/2024 10:00) Pulse: 62 (01/16/2024 10:00) Respiration: 18 (01/16/2024 10:00) Temperature: 97.8 F [36.6 C] (01/16/2024 10:00) Pain Score: 0 (01/16/2024 10:00)chronic ache sharp at times to lower back. 11/13 EXAMINATION: Lungs:CTA NAD sats 99-100% RA Edema:dependent edema. encouraged elevation of extr throughout the day . wearing properly fitting shoes HR:reg denies any cp or palp Bowel/Bladder:denies any issues Skin:as reported above large bruise to l upper arm with laceration that is healing no ss of infection Home Safety lives alone. son's live nearby FALLS NO INFECTIONS NO ER/HOSPITALIZATIONS NO Teaching/goals:[place] has ongoing complex medical needs and benefits from HB interdisciplinary management. [place] and cg are included in decision making. All questions answered, education. regarding medications, disease mgt provided. and caregiver verbalize understanding. [place] will be free from falls, infections, and hospitalizations over the next 30 days. Patient verbalizes understanding to above and will call with any concerns or changes in condition. For emergent care call 911. Plan for next visit:Feb 24 chronic disease mgt /es/ Millie MEEHAN [facility] waredresser Signed: 01/18/2024 08:07 [place]IE DAVEN[place] [facility]
--- OUTSIDE RECORDS SUMMARY | 2024-07-04 16:10 | XMS_ITS ---
Author Name [facility] [place] [facility] Address [address] [place] [address] Care Team Providers Care Sales Enablement Consultant Name Role Phone ROBERT DAVIS Primary Care [...] O MEDEX BRONZ E Jun 06, 2001 [id number] [phone] OMAS PATIENT ANTHEM BCBS OF CT (BLUECARD) MEDICARE SUPPLEMEN BHARGAVI PSUED O MEDEX BRONZ E Jun 06, 2001 [id number] OM[place] PAT[place] MED[place] SUPPLEMEN BHARGAVI MEDEX BRONZ E Jun 06, 2001 [id number] [place] SUPPLEMEN BHARGAVI PSUED O MEDEX BRONZ E Jun 06, 2001 [id number] HUDRACHEL BOYER OMAS PATIENT [place] MEDIC[place] SUPPLEMEN BHARGAVI PSUED O MEDEX BRONZ E Jun 06, 2001 [id number] HUDMERLIN,RACHEL OMAS PATIENT MEDICARE (WNR) MEDICARE (M) PART A May 07, 2001 PART A [id number] HUDOCK,RACHEL OMAS PATIENT MEDICARE (WNR) MEDICARE (M) PART B May 07, 2001 PART B [id number] ([id number] HUDOCK,RACHEL OMAS PATIENT MEDICARE (WNR) MEDICARE (M) PART A May 07, 2001 PART A [id number] ([id number] HUDMERLIN,RACHEL OMAS PATIENT MEDICARE (WNR) MEDICARE (M) PART B May 07, 2001 PART B [id number] ([id number] HUDRACHEL BOYER OMAS PATIENT MEDICARE (WNR) MEDICARE (M) PART A May 07, 2001 PART A [id number] HUDRACHEL BOYER OMAS PATIENT MEDICARE (WNR) MEDICARE (M) PART B May 07, 2001 PART B [id number] HUDMERLIN,RACHEL OMAS PATIENT MEDICARE (WNR) MEDICARE (M) PART A May 07, 2001 PART A [id number] ([id number] HUDMERLIN,RACHEL OMAS PATIENT MEDICARE (WNR) MEDICARE (M) PART B May 07, 2001 PART B [id number] ([id number] HUDRACHEL BOYER OMGUANACO PATIENT Selected Encounter This section includes the information on record at [place] for the Encounter. Date/Time Encounter Type Encounter Description Reason Pro vider Source Dec 29, 2023 03:36 PM Outpatient Encounter [facility] PHYSIC EXTND(CLINICAL RESEARCH MANAGEMENT ASSOCIATE,CLERGY MEMBER,PA) IHE Encounter Template Text not used by [...] 21, 2024 08:00 AM AMBULATORY - MEDICINE [facility] [place] [facility] May 08, 2024 08:00 AM AM[facility]UL[facility] - [facility] Lab Results: +/- 30 days [...] Range Comment Dec 29, 2023 12:00 PM [facility] VITAMIN D (25-OH) Specimen Type: SERUM No comment entered. Ordering Provider: Crispin DAVIS Report Released Date/Time: November 17, 2023 09:28 AM Reporting Lab: [facility] [place] [facility] [address] [facility] [address] Performing Lab: [facility] [place] [facility] [address] [facility] [address] VITAMIN D (25-OH) 20 ng/mL 20-50 Dec 29, 2023 12:00 PM [facility] CALCIUM Specimen Type: SERUM No comment entered. Ordering Provider: Crispin DAVIS Report Released Date/Time: November 17, 2023 09:28 AM Reporting Lab: [facility] [place] [facility] [address] [facility] [address] Performing Lab: [facility] [address] [facility] [address] CALCIUM 8.9 mg/dL 8.5-10.2 Vital Signs: All taken on the encounter date This section contains inpatient and outpatient Vital Signs collected on the date of the Encounter. Date/Time Temperature Pulse Blood Pressure Respiratory Rate SP02 Pain Height Weight Body Mass Index Source Dec 29, 2023 11:00 AM 97.5 78 110/62 18 99 7 [facility] [place] [facility] Social History: Smoking Status (Most current) [...] 17, 2023 08:31 AM VA-TOBACCO [facility] Tobacco Use History This section includes a history of the smoking, or tobacco-related health factors, that were collected on or before the date of the Encounter. The data comes from the [place] facility where the Encounter took place. Date/Time Smoking Status/Tobac co Use Comment Facility November 17, 2023 08:31 AM VA-TOBACCO QUIT 15 YRS OR MORE [place] [facility] [place] [facility] May 07, 2022 09:00 AM VA-TOBACCO FORMER USER [place] [facility] [place] [facility] May 07, 2022 09:00 AM VA-TOBACCO QUIT 15 YRS OR MORE [place] [facility] [place] [facility] May 21, 2021 08:00 AM VA-TOBACCO FORMER USER [place] [facility] [place] [facility] May 21, 2021 08:00 AM VA-TOBACCO QUIT 15 YRS OR MORE [place] [facility] [place] [facility] Apr 24, 2020 11:00 AM VA-TOBACCO FORMER USER [place] [facility] [place] [facility] Apr 24, 2020 11:00 AM VA-TOBACCO QUIT 15 YRS OR MORE [place] [facility] [place] [facility] Jan 15, 2018 10:57 AM QUIT TOBACCO USE > 7 YEARS AGO [place] [facility] [place] [facility] Dec 10, 2016 08:53 AM QUIT TOBACCO USE > 7 YEARS AGO [place] [facility] [place] [facility] Jul 19, 2015 10:22 AM QUIT TOBACCO USE > 7 YEARS AGO Quit about 40 years ago. [place] [facility] [place] [facility] November 14, 2004 10:00 AM HISTORY OF SMOKING [facility] [facility] November 14, 2004 10:00 AM LIFETIME NON-SMOKER [place] [facility] [place] [facility] Oct 25, 2003 10:34 AM [facility] Oct 07, 2002 09:41 AM [facility] Nov 03, 2001 10:31 AM QUIT TOBACCO USE > 7 YEARS AGO [facility] Jul 31, 2001 02:15 PM NON-TOBACCO USER Quit 20 yrs ago [facility] Advance Directives: All historical and current [...] Jul 03, 2023 ADVANCE DIRECTIVE RICHARD BAZZI [facility] Encounter Notes: All associated encounter notes This section contains the clinical notes associated to the Encounter. Date/Time Encounter Note(s) Provider Source Dec 29, 2023 03:36 PM ADMINISTRATIVE NOT E: LOCAL TITLE: FAX/MAIL RECEIVED STANDARD TITLE: ADMINISTRATIVE NOTE DATE OF NOTE: DEC 29, 2023@15:36 ENTRY DATE: DEC 29, 2023@15:36:37 AUTHOR: MONSE DUBON EXP COSIGNER: URGENCY: STATUS: COMPLETED Document Received On: Dec Document Type: Other: mri FROM 09/17/18 Date of Service: Dec Facility and or Provider: MRI UNKNOWN Contact Information: PCP of Record: ROBERT DAVIS Next visit with PCP: 01/21/2024 08:00 [facility] CARE-WW [facility] SKILLED [facility] 02/05/2024 11:00 CWM/NO/OPTOMETRY/MERHAR 07/13/2024 11:00 CWM/NO/PODIATRY A Primary Care May keep copies of this document for up to 14 days and send the original for scanning. /genoveva/ MONSE DUBON HBSON PRODUCE ASSOCIATE Signed: 12/29/2023 15:38 Receipt Acknowledged By: 12/29/2023 15:43 /genoveva/ Millie MEEHAN [facility] cosmetic assembler 12/30/2023 08:10 /es/ ROBERT DAVIS RN,MSN,COMPACTING MACHINE OPERATOR/TENDER-C [facility] NURSE PRACTITIONER MONSE DUBON [facility]
--- OUTSIDE RECORDS SUMMARY | 2024-07-04 16:10 | XMS_ITS | Encounter Summary ---
Author Name [facility] [place] Organization [facility] [place] Address [address] [place] [id number] Care Team Providers Care Advanced Manufacturing Technician Name Role Phone ROBERT DAVIS Primary [...] O MEDEX BRONZ E Jun 06, 2001 [id number] OMAS PATIENT ANTHEM BCBS OF CT (BLUECARD) MEDICARE SUPPLEMEN BHARGAVI PSUED O MEDEX BRONZ E Jun 06, 2001 [id number] [phone] OM[place] PATIENT [place]BS [place] MEDICARE SUPPLEMEN BHARGAVI MEDEX BRONZ E Jun 06, 2001 [id number] [phone] [place] SUPPLE[place] BHARGAVI PSUED O MEDEX BRONZ E Jun 06, 2001 [id number] HUDRACHEL BOYER OM[place] PATIENT [place] MED[place]ARE SUPPLEMEN BHARGAVI PSUED O MEDEX BRONZ E Jun 06, 2001 [id number] HUDOCK,RACHEL OMAS PATIENT MEDICARE (WNR) MEDICARE (M) PART A May 07, 2001 PART A [id number] HUDOCK,RACHEL OMAS PATIENT MEDICARE (WNR) MEDICARE (M) PART B May 07, 2001 PART B [id number] ([id number] HUDOCK,RACHEL OMAS PATIENT MEDICARE (WNR) MEDICARE (M) PART A May 07, 2001 PART A [id number] ([id number] HUDOCK,RACHEL OMAS PATIENT MEDICARE (WNR) MEDICARE (M) PART B May 07, 2001 PART B [id number] ([id number] HUDMERLIN,RACHEL OMAS PATIENT MEDICARE (WNR) MEDICARE (M) PART A May 07, 2001 PART A [id number] HUDRACHEL BOYER OMAS PATIENT MEDICARE (WNR) MEDICARE (M) PART B May 07, 2001 PART B [id number] HUDMERLIN,RACHEL OMAS PATIENT MEDICARE (WNR) MEDICARE (M) PART A May 07, 2001 PART A [id number] ([id number] HUDMERLIN,RACHEL OMAS PATIENT MEDICARE (WNR) MEDICARE (M) PART B May 07, 2001 PART B [id number] ([id number] HUDRACHEL BOYER OMGUANACO PATIENT Selected Encounter This section includes the information on record at [place] for the Encounter. Date/Time Encounter Type Encounter Description Reason Pro vider Source Jan 22, 2024 02:12 PM Outpatient Encounter ADMIN PAT ACTIVTIES (MASNONCT) [...] 08, 2024 08:00 AM AMBULATORY - MEDICINE [facility] Jul 13, 2024 11:00 AM AMBULATORY - MEDICINE [facility] Lab Results: +/- 30 days of [...] Range Comment Dec 29, 2023 12:00 PM [facility] VITAMIN D (25-OH) Specimen Type: SERUM No comment entered. Ordering Provider: Crispin DAVIS Report Released Date/Time: November 17, 2023 09:28 AM Reporting Lab: [facility] [address] [facility] [address] Performing Lab: [facility] [address] [facility] [address] VITAMIN D (25-OH) 20 ng/mL 20-50 Dec 29, 2023 12:00 PM [facility] CALCIUM Specimen Type: SERUM No comment entered. Ordering Provider: Crispin DAVIS Report Released Date/Time: November 17, 2023 09:28 AM Reporting Lab: [facility] [address] [facility] [address] Performing Lab: [address] [address] CALCIUM 8.9 mg/dL 8.5-10.2 Social History: Smoking [...] took place. Date/Time Current Smoking Status Comment [facility] it November 17, 2023 08:31 AM [facility] [place] [facility] Tobacco Use History This section includes a history of the smoking, or tobacco-related health factors, that were collected on or before the date of the Encounter. The data comes from the [place] facility where the Encounter took place. Date/Time Smoking Status/Tobac co Use Comment Facility November 17, 2023 08:31 AM VA-TOBACCO QUIT 15 YRS OR MORE [place] [facility] [place] [facility] May 07, 2022 09:00 AM VA-TOBACCO FORMER USER [facility] [place] [facility] May 07, 2022 09:00 AM VA-TOBACCO QUIT 15 YRS OR MORE [place] [facility] [place] [facility] May 21, 2021 08:00 AM VA-TOBACCO FORMER USER [place] [facility] [place] [facility] May 21, 2021 08:00 AM VA-TOBACCO QUIT 15 YRS OR MORE [place] [facility] [place] [facility] Apr 24, 2020 11:00 AM VA-TOBACCO FORMER USER [place] [facility] [place] [facility] Apr 24, 2020 11:00 AM VA-TOBACCO QUIT 15 YRS OR MORE [place] [facility] [place] [facility] Jan 15, 2018 10:57 AM QUIT TOBACCO USE > 7 YEARS AGO [place] [facility] [place] [facility] Dec 10, 2016 08:53 AM QUIT TOBACCO USE > 7 YEARS AGO [place] [facility] [place] [facility] Jul 19, 2015 10:22 AM QUIT TOBACCO USE > 7 YEARS AGO Quit about 40 years ago. [place] [facility] [place] [facility] November 14, 2004 10:00 AM HISTORY OF SMOKING [place] [facility] [place] [facility] November 14, 2004 10:00 AM LIFETIME NON-SMOKER [place] [facility] [place] [facility] Oct 25, 2003 10:34 AM HISTORY OF SMOKING [place] [facility] [place] [facility] Oct 07, 2002 09:41 AM HISTORY OF SMOKING [place] [facility] [place] [facility] Nov 03, 2001 10:31 AM QUIT TOBACCO USE > 7 YEARS AGO [place] [facility] [place] [facility] Jul 31, 2001 02:15 PM NON-TOBACCO USER Quit 20 yrs ago [facility] Advance Directives: All historical and current [...] Jul 03, 2023 ADVANCE DIRECTIVE RICHARD BAZZI [facility] Encounter Notes: All associated encounter notes This section contains the clinical notes associated to the Encounter. Date/Time Encounter Note(s) Provider Source Jan 22, 2024 02:12 PM ADMINISTRATIVE NOT E: LOCAL TITLE: CCC: SCHEDULING ADMINISTRATION STANDARD TITLE: ADMINISTRATIVE NOTE DATE OF NOTE: JAN 22, 2024@14:12:49 ENTRY DATE: JAN 22, 2024@14:12:50 AUTHOR: FREDDY RUSHING EXP COSIGNER: URGENCY: STATUS: COMPLETED Patient Demographics Patient Name: GONZALO VEGA Patient Primary Phone: [phone] Patient Primary Address: [address] [place] [id number] Patient : 1935 Patient Age: 88 Caller/Recipient Relation to Patient: Other If Other Describe Relation to Patient: [facility] Caller Name: Brian Administrative Administrative Note Reason: Home Health / Prison Administrative Note Comments: Brian from [facility] is calling to notify PCP that was discharged from services today, 01.22.2024. [facility] had met goals with maximum potential. Any questions and Brian can be reached at [phone] /genoveva/ FREDDY RUSHING VISElizabteh 1 [facility] Signed: 01/22/2024 14:12 Receipt Acknowledged By: 01/22/2024 17:14 /es/ Millie MEEHAN [facility] therapeutic radiologist 01/22/2024 14:30 /es/ ROBERT DAVIS RN,MSN,HARDBOARD PANEL PRINTER-C HB NURSE PRACTITIONER FREDDY RUSHING [facility]
--- OUTSIDE RECORDS SUMMARY | 2024-07-04 16:11 | XMS_ITS ---
Author Name [facility] Organization [facility] Address [address] [place] [address] Care Team Providers Care Manager Administrative Services Name Role Phone ROBERT DAVIS Primary Care Provider Unav ailable RICHARD BAZZI Unavailable Unavailable CASSANRDA FERRELL Unavailable Unavailable KELSEA JO Unavailable Unavailable [...] O MEDEX BRONZ E Jun 06, 2001 [id number] [facility] PATIENT ANTHEM BCBS OF CT (BLUECARD) MEDICARE SUPPLEMEN BHARGAVI PSUED O MEDEX BRONZ E Jun 06, 2001 [id number] [place] PATIENT [place]BS [place] MED[place]ARE SUPPLEMEN BHARGAVI MEDEX BRONZ E Jun 06, 2001 [id number] [place] PATIENT [place] SUPPLEMEN BHARGAVI PSUED O MEDEX BRONZ E Jun 06, 2001 [id number] RACHEL RIOS OMAS PATIENT BCBS OF [facility] MEDICARE SUPPLEMEN BHARGAVI PSUED O MEDEX BRONZ E Jun 06, 2001 [id number] HUDRACHEL BOYER [facility] PATIENT MEDICARE (WNR) MEDICARE (M) PART A May 07, 2001 PART A [id number] HUDOCK,RACHEL OMAS PATIENT MEDICARE (WNR) MEDICARE (M) PART B May 07, 2001 PART B [id number] ([id number] HUDOCK,RACHEL OMAS PATIENT MEDICARE (WNR) MEDICARE (M) PART A May 07, 2001 PART A [id number] ([id number] HUDMERLIN,RACHEL OMAS PATIENT MEDICARE (WNR) MEDICARE (M) PART B May 07, 2001 PART B [id number] ([id number] HUDMERLIN,RACHEL OMAS PATIENT MEDICARE (WNR) MEDICARE (M) PART A May 07, 2001 PART A [id number] HUDRACHEL BOYER [facility] PATIENT MEDICARE (WNR) MEDICARE (M) PART B May 07, 2001 PART B [id number] HUDMERLIN,RACHEL OMAS PATIENT MEDICARE (WNR) MEDICARE (M) PART A May 07, 2001 PART A [id number] ([id number] HUDMERLIN,RACHEL OMAS PATIENT MEDICARE (WNR) MEDICARE (M) PART B May 07, 2001 PART B [id number] ([id number] HUDRACHEL BOYER OMGUANACO PATIENT Selected Encounter This section includes the information on record at [place] for the Encounter. Date/Time Encounter Type Encounter Description Reason Provider Source Apr 07, 2024 03:42 PM Outpatient Encounter TELEPHONE/GERIATRIC BRAXTON URBANO Encounter Template Text not used by VA [...] 20 appointments. The data comes from all [place] treatment facilities. Appointment Date/Time Appointment Type Appointme nt Facility Name May 08, 2024 08:00 AM [facility] Jul 13, 2024 11:00 AM [facility] Active, Pending, and Scheduled Orders This section includes a listing of several types of active, pending, and scheduled orders, including clinic medications orders, diagnostic test orders, procedure orders and consult orders; where the start date of the order is 45 days before the date of the Encounter or 45 days after the date of theEncounter. The data comes from all [place] treatment facilities. Test Date/Time Test Type Test Details Facility Name Apr 07, 2024 04:04 PM Consult Order [facility] NON-SKILLED HOME HEALTH AIDE Cons [place] [facility] Lab Results: +/- 30 days of the encounter This section includes the Chemistry and Hematology Lab Results on record with [place] for the patient. Radiology Reports and Pathology Reports are provided separately, in subsequent sections. Lab Results This section contains the Chemistry/Hematology Results that were resulted 30 days before or 30 daysafter the date of the Encounter. Date/Time Source Result Type Result - Unit Interpretation Reference Range Comment Mar 29, 2024 12:00 PM [facility] VITAMIN D (25-OH) Specimen Type: SERUM No comment entered. Ordering Provider: MARQUES JEFFERY Report Released Date/Time: Mar 29, 2024 02:13 PM Reporting Lab: [facility] [address] [facility] [address] Performing Lab: [address] [address] VITAMIN D (25-OH) 17 ng/mL L 20-50 Mar 29, 2024 12:00 PM [facility] IRON & TIBC PANEL Specimen Type: SERUM No comment entered. Ordering Provider: Crispin DAVIS Report Released Date/Time: Mar 30, 2024 12:26 PM Reporting Lab: [address] [place] [address] Performing Lab: [facility] [address] [facility] [address] TIBC 279 ug/dL 204-475 IRON 114 ug/dL 40-160 Transferrin Saturation 40.9 20.0-50.0 Transferrin (TRF) 211 mg/dL 200-360 Mar 29, 2024 12:00 PM [facility] HEMOGLOBIN A1C PANEL Specimen Type: BLOOD Comment: Values obtained from A1C measurements can vary. For atypical A1C assays, a reported value of 7.0 could actually be between 6.72 and 7.28 if measured by a reference method. A reported value of 9.0 could actually be between 8.73 and 9.27. Ref: http://www.ngs p.org/CAPdata. asp Ordering Provider: Crispin DAVIS Report Released Date/Time: Feb 03, 2024 09:47 AM Reporting Lab: [address] [address] Performing Lab: [address] [address] HEMOGLOBIN A1C 7.7 H 4.0-5.6 Mar 29, 2024 12:00 PM [facility] MICROALBUMIN CREATININE RATIO PANEL Specimen Type: URINE No comment entered. Ordering Provider: Crispin DAVIS Report Released Date/Time: Feb 03, 2024 09:47 AM Reporting Lab: [address] [address] Performing Lab: [address] [address] MICROALBUMIN/C REATININE RATIO 121.4 mg/g H 0-29.9 MICROALBUMIN,Q UANTITATIVE 1.5 mg/dL RR UNAVAIL CREATININE URINE 12.36 mg/dL Mar 29, 2024 12:00 PM [facility] URIC ACID Specimen Type: SERUM No comment entered. Ordering Provider: Crispin DAVIS Report Released Date/Time: Feb 03, 2024 09:47 AM Reporting Lab: [facility] [address] [facility] [address] Performing Lab: [address] [address] URIC ACID 9.9 mg/dL H 3.5-7.2 Mar 29, 2024 12:00 PM [facility] BASIC METABOLIC PANEL (non-fasting) Specimen Type: SERUM No comment entered. Ordering Provider: Crispin DAVIS Report Released Date/Time: Feb 03, 2024 09:47 AM Reporting Lab: [address] [address] Performing Lab: [address] [address] UREA NITROGEN 43 mg/dL H 7-25 GLUCOSE 290 mg/dL H 65-100 SODIUM 135 mmol/L 135-145 POTASSIUM 4.5 mmol/L 3.5-5.0 CHLORIDE 100 mmol/L 100-110 CO2 28 meq/L 20-30 CREATININE, Serum 1.35 mg/dL 0.50-1.40 eGFR(CKD-EPI 2020) 50 mL/min L >60 Mar 29, 2024 12:00 PM [facility] CBC AND DIFF (AUTO) Specimen Type: BLOOD No comment entered. Ordering Provider: Crispin DAVIS Report Released Date/Time: Feb 03, 2024 09:47 AM Reporting Lab: [address] [address] Performing Lab: [address] [address] WBC 3.88 10*3/uL L 4.50-11.00 RBC 2.94 10*6/uL L 4.23-5.66 HGB 10.5 g/dL L 12.8-17 HCT 32.0 L 39.2-50.4 MCV 108.8 fL H 82-99 MCHC 32.8 g/dL 30.8-35.1 PLT 104 10*3/uL L 140-360 RDW-CV 14.0 12.0-16.0 MONO, ABS 0.24 10*3/uL L 0.30-1.10 MCH 35.7 pg H 26.2-32.6 NEUT % 78.9 H 43.7-75.8 LYMPH % 11.6 L 14.0-42.3 MONO % 6.2 5.1-13.7 EOS % 1.5 0.4-6.8 BASO % 1.3 0.1-2.0 NEUT, ABS 3.06 10*3/uL 2.20-7.60 LYMPH, ABS 0.45 10*3/uL L 1.00-3.20 EOS, ABS 0.06 10*3/uL 0.03-0.44 BASO, ABS 0.05 10*3/uL 0.01-0.13 IMMATURE GRAN % 0.5 0.0-0.7 IMMATURE GRAN, ABS 0.02 10*3/uL 0.00-0.06 NRBC % 0.0 0.0-0.0 NRBC, ABS 0.00 10*3/uL 0.00-0.00 Social History: Smoking Status (Most current) and Tobacco Use (All prior to encounter date) This section includes the most current, and the historical, smoking and tobacco- related health factors from the [place] facility where the Encounter took place. Current Smoking Status This section includes the most current smoking, or tobacco-related health factor, from the [place] facility where the Encounter took place. Date/Time Current Smoking Status Comment [facility] November 17, 2023 08:31 AM VA-TOBACCO FORMER USER [facility] Tobacco Use History This section includes a history of the smoking, or tobacco-related health factors, that were collected on or before the date of the Encounter. The data comes from the [place] facility where the Encounter took place. Date/Time Smoking Status/Tobac co Use Comment Facility November 17, 2023 08:31 AM VA-TOBACCO QUIT 15 YRS OR MORE [place] [facility] [place] [facility] May 07, 2022 09:00 AM VA-TOBACCO FORMER USER [place] [facility] [place] [facility] May 07, 2022 09:00 AM VA-TOBACCO QUIT 15 YRS OR MORE [facility] May 21, 2021 08:00 AM VA-TOBACCO FORMER USER [place] [facility] [place] [facility] May 21, 2021 08:00 AM VA-TOBACCO QUIT 15 YRS OR MORE [place] [facility] [place] [facility] Apr 24, 2020 11:00 AM VA-TOBACCO FORMER USER [place] [facility] [place] [facility] Apr 24, 2020 11:00 AM VA-TOBACCO QUIT 15 YRS OR [facility] Jan 15, 2018 10:57 AM QUIT TOBACCO USE > 7 YEARS AGO [place] [facility] Dec 10, 2016 08:53 AM QUIT TOBACCO USE > 7 YEARS AGO [place] [facility] Jul 19, 2015 10:22 AM QUIT TOBACCO USE > 7 YEARS AGO Quit about 40 years ago. [place] [facility] November 14, 2004 10:00 AM HISTORY OF SMOKING [facility] November 14, 2004 10:00 AM LIFETIME [facility]MOK[facility] Oct 25, 2003 10:34 AM [facility] Oct 07, 2002 09:41 AM HISTORY OF SMOKING [facility] Nov 03, 2001 10:31 AM QUIT TOBACCO USE > 7 YEARS AGO [facility] Jul 31, 2001 02:15 PM NON-TOBACCO USER Quit 20 yrs ago [facility] Advance Directives: All historical and current Section Date Range: From patient's date of to the date document was created. This section includes ALL of a patient's completed or amended [place] Advance and Rescinded Directives. The entries below indicate that a directive exists for the patient, but an actual copy is not included with this document. The data comes from all [place] facilities. Date Advance Directives Provider Source Jul 03, 2023 ADVANCE DIRECTIVE RICHARD BAZZI [facility] Encounter Notes: All associated encounter notes This section contains the clinical notes associated to the Encounter. Date/Time Encounter Note(s) Provider Source Apr 07, 2024 03:42 PM GERIATRIC MEDICINE NOTE: LOCAL TITLE: PERSONAL CARE SERVICES CASE MIX TOOL STANDARD TITLE: GERIATRIC MEDICINE NOTE DATE OF NOTE: APR 07, 2024@15:42:20 ENTRY DATE: APR 07, 2024@15:42:20 AUTHOR: TRUPTI STEPHENSON EXP COSIGNER: URGENCY: STATUS: COMPLETED HCBS Case Mix & Budget Tool (CASE MIX) Date Given: 04/07/2024 Clinician: Trupti Stephenson [facility] [facility] [place] Rn Blanchard: Gonzalo Rios SSN: [id number] : [birth year]) Gender: Male Type of Evaluation: Annual Anticipated Start Date: 04/07/2024 Anticipated Length of Service: 12 months Case Mix Level: D ADL Category: Medium Questions and Answers: Q1. DRESSING *2 Need some help from another person to put your clothes on. Q2. GROOMING 0 Can comb your hair, wash your face, shave or brush your teeth without help of any kind. Q3. BATHING 3 Need and get help getting in and out of the tub. Q4. EATING *2 Need and get help in cutting food, buttering bread or arranging food. Q5. BED MOBILITY 0 Can move in bed without any help. Q6. TRANSFERRING *2 Need one other person to help you. Q7. WALKING *2 Need and get help from one person to help you walk. Q8. BEHAVIOR 0 Behavior requires no intervention. Q9. COMMUNICATION 0 Understood. Q10. TOILETING 0 Can use the toilet without help, including adjusting clothing. Q11. MDS HC 2.0/CPS Cognitive Skill for Daily Decision Making 1 Modified [place] - some difficulty in new situations only. Q12. MDS 2.0/CPS: Short Term Memory (recall of what was learned or known) 0 Short-term memory okay- seems/appears to recall after 5 minutes Q13. SPECIAL TREATMENTS 2 One or more [place] such as: 10. Skin Care Q14. CLINICAL MONITORING 0 Less than once a day Q15. SPECIAL NURSING No Q16. NEUROMUSCULAR DIAGNOSIS No COMMENTS Blanchard reports he is managing at home. 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 SOURCES 1. Person, 3. Medical Record /es/ Trupti Stephenson RN RN Signed: 04/07/2024 15:43 TRUPTI STEPHENSON [facility]
--- OUTSIDE RECORDS SUMMARY | 2024-07-04 16:11 | XMS_ITS ---
Author Name [facility] [place] Organization [facility] Address [address] [place] [address] Care Team Providers Care Oyster Culturist Name Role Phone ROBERT DAVIS Primary Care [...] O MEDEX BRONZ E Jun 06, 2001 [id number] OM[place] PATIENT ANTHEM BCBS OF [place] (BLUECARD) MEDICARE SUPPLEMEN BHARGAVI PSUED O MEDEX BRONZ E Jun 06, 2001 [id number] [place] PAT[place] SUPPLEMEN BHARGAVI MEDEX BRONZ E Jun 06, 2001 [id number] [phone] [place] PAT[place] SUPPLEMEN BHARGAVI PSUED O MEDEX BRONZ E Jun 06, 2001 [id number] HUDRACHEL BOYER OMAS PATIENT BCBS OF [facility] MEDICARE SUPPLEMEN BHARGAVI PSUED O MEDEX BRONZ E Jun 06, 2001 [id number] HUDOCK,TH OMAS PATIENT MEDICARE (WNR) MEDICARE (M) PART A May 07, 2001 PART A [id number] HUDOCK,TH OMAS PATIENT MEDICARE (WNR) MEDICARE (M) PART B May 07, 2001 PART B [id number] ([id number] HUDOCK,TH OMAS PATIENT MEDICARE (WNR) MEDICARE (M) PART A May 07, 2001 PART A [id number] ([id number] HUDOCK,RACHEL OMAS PATIENT MEDICARE (WNR) MEDICARE (M) PART B May 07, 2001 PART B [id number] HUDOCK,RACHEL OMAS PATIENT MEDICARE (WNR) MEDICARE (M) PART A May 07, 2001 PART A [id number] HUDOCK,RACHEL OMAS PATIENT MEDICARE (WNR) MEDICARE (M) PART B May 07, 2001 PART B [id number] HUDOCK,RACHEL OMAS PATIENT MEDICARE (WNR) MEDICARE (M) PART A May 07, 2001 PART A [id number] HUDOCK,RACHEL OMAS PATIENT MEDICARE (WNR) MEDICARE (M) PART B May 07, 2001 PART B [id number] ([id number] HUDOCK,RACHEL OM[place] PATIENT Selected Encounter This section includes the information on record at [place] for the Encounter. Date/Time Encounter Type Encounter Description Reason Provider Source Apr 12, 2024 11:00 AM Outpatient Encounter ANEUDY HOLLINS(THEATRE ARTS PROFESSOR,ERP ANALYST,PA) ICD-10-CM G89.29 Other chronic pain Crispin DAVIS IHMallory Encounter Template Text not used by [facility] Assessments - Encounter Diagnoses This section includes the primary and secondary diagnoses documented for the Encounter. Date/Time Primary/Secondary Diagnosis Diagnosis Name Provider Source Apr 28, 2024 02:38 PM PRIMARY Other chronic pain ROBERT DAVIS [facility] Apr 28, 2024 02:38 PM SECONDARY Type 2 diabetes mellitus with diabetic polyneuropathy [facility] Apr 28, 2024 02:38 PM SECONDARY Vitamin D deficiency, unspecified ROBERT DAVIS [facility] Plan of Treatment: Future Appointments (+ 6 months) and Future Tests (+/- 45 days) The Plan of Treatment section includes future care activities for the patient from all [place] [facility]. This section includes future appointments and future orders which are active, pending or scheduled. Future Appointments This section includes appointments that were scheduled to occur 6 months from the date of the Encounter, up to a maximum of 20 appointments. The data comes from all [facility] ([facility]3] facilities. Appointment Date/Time Appointment Type Appointme nt Facility Name May 08, 2024 08:00 AM AMBULATORY - MEDICINE [facility] Jul 13, 2024 11:00 AM AMBULATORY MEDICINE [facility] Oct 07, 2024 11:00 AM AMBULATORY MEDICINE [facility] Active, Pending, and Scheduled Orders This section includes a listing of several types of active, pending, and scheduled orders, including clinic medications orders, diagnostic test orders, procedure orders and consult orders; where the start date of the order is 45 days before the date of the Encounter or 45 days after the date of theEncounter. The data comes from all [facility] ([facility]3] facilities. Test Date/Time Test Type Test Details Facility Name Apr 07, 2024 04:04 PM Consult Order [facility] NON-SKILLED HOME HEALTH AIDE Cons Grocery Manager's Choice [facility] Lab Results: +/- 30 days of the encounter This section includes the Chemistry and Hematology Lab Results on record with [place] for the patient. Radiology Reports and Pathology Reports are provided separately, in subsequent sections. Lab Results This section contains the Chemistry/Hematology Results that were resulted 30 days before or 30 daysafter the date of the Encounter. Date/Time Source Result Type Result - Unit Interpretation Reference Range Comment Mar 29, 2024 12:00 PM [facility] VITAMIN D (25-OH) Specimen Type: SERUM No comment entered. Ordering Provider: MARQUES JEFFERY Report Released Date/Time: Mar 29, 2024 02:13 PM Reporting Lab: [facility] [address] [facility] [facility] [address] Performing Lab: [address] [address] VITAMIN D (25-OH) 17 ng/mL L 20-50 Mar 29, 2024 12:00 PM [facility] IRON & TIBC PANEL Specimen Type: SERUM No comment entered. Ordering Provider: Crispin DAVIS Report Released Date/Time: Mar 30, 2024 12:26 PM Reporting Lab: [facility] [address] [facility] [facility] [address] Performing Lab: [address] [address] TIBC 279 ug/dL 204-475 IRON 114 ug/dL 40-160 Transferrin Saturation 40.9 20.0-50.0 Transferrin (TRF) 211 mg/dL 200-360 Mar 29, 2024 12:00 PM [facility] HEMOGLOBIN A1C PANEL Specimen Type: BLOOD [...] Feb 03, 2024 09:47 AM Reporting Lab: [address] [address] Performing Lab: [address] [address] HEMOGLOBIN A1C 7.7 H 4.0-5.6 Mar 29, 2024 12:00 PM [facility] URIC ACID Specimen Type: SERUM No comment entered. Ordering Provider: Crispin DAVIS Report Released Date/Time: Feb 03, 2024 09:47 AM Reporting Lab: [facility] [address] [facility] [address] Performing Lab: [address] [address] URIC ACID 9.9 mg/dL H 3.5-7.2 Mar 29, 2024 12:00 PM [facility] MICROALBUMIN CREATININE RATIO PANEL Specimen Type: URINE No comment entered. Ordering Provider: Crispin DAVIS Report Released Date/Time: Feb 03, 2024 09:47 AM Reporting Lab: [address] [address] Performing Lab: [address] [address] MICROALBUMIN/C REATININE RATIO 121.4 mg/g H 0-29.9 MICROALBUMIN,Q UANTITATIVE 1.5 mg/dL RR UNAVAIL CREATININE URINE 12.36 mg/dL Mar 29, 2024 12:00 PM [facility] BASIC METABOLIC PANEL (non-fasting) Specimen Type: SERUM No comment entered. Ordering Provider: Crispin DAVIS Report Released Date/Time: Feb 03, 2024 09:47 AM Reporting Lab: [address] [address] Performing Lab: [address] [address] UREA NITROGEN 43 mg/dL H 7-25 GLUCOSE 290 mg/dL H 65-100 SODIUM 135 mmol/L 135-145 POTASSIUM 4.5 mmol/L 3.5-5.0 CHLORIDE 100 mmol/L 100-110 CO2 28 meq/L 20-30 CREATININE, Serum 1.35 mg/dL 0.50-1.40 eGFR(CKD-EPI 2020) 50 mL/min L >60 Mar 29, 2024 12:00 PM [facility] CBC AND DIFF (AUTO) Specimen Type: BLOOD No comment entered. Ordering Provider: Crispin DAVIS Report Released Date/Time: Feb 03, 2024 09:47 AM Reporting Lab: [place] [facility] [employer] [facility] [address] [facility] [address] Performing Lab: [place] [facility] [employer] [facility] [address] [facility] [address] WBC 3.88 10*3/uL L 4.50-11.00 RBC 2.94 [...] 0.0 0.0-0.0 NRBC, ABS 0.00 10*3/uL 0.00-0.00 Vital Signs: All taken on the encounter date This section contains inpatient and outpatient Vital Signs collected on the date of the Encounter. Date/Time Temperature Pulse Blood Pressure Respiratory Rate SP02 Pain Height Weight Body Mass Index Source Apr 12, 2024 01:34 PM 97.5 64 130/90 16 99 7 [place] [facility] [place] [facility] Social History: Smoking Status (Most current) and Tobacco Use (All prior to encounter date) This section includes the most current, and the historical, smoking and tobacco- related health factors from the [place] facility where the Encounter took place. Current Smoking Status This section includes the most current smoking, or tobacco-related health factor, from the [place] facility where the Encounter took place. Date/Time Current Smoking Status Comment Facil it November 17, 2023 08:31 AM VA-TOBACCO FOR[facility]ER [facility] Tobacco Use History This section includes a history of the smoking, or tobacco-related health factors, that were collected on or before the date of the Encounter. The data comes from the [place] facility where the Encounter took place. Date/Time Smoking Status/Tobac co Use Comment Facility November 17, 2023 08:31 AM VA-TOBACCO QUIT 15 YRS OR MORE [place] [facility] [place] [facility] May 07, 2022 09:00 AM VA-TOBACCO FORMER USER [place] [facility] [place] [facility] May 07, 2022 09:00 AM VA-TOBACCO QUIT 15 YRS OR MORE [place] [facility] [place] [facility] May 21, 2021 08:00 AM VA-TOBACCO FORMER USER [place] [facility] [place] [facility] May 21, 2021 08:00 AM VA-TOBACCO QUIT 15 YRS OR MORE [place] [facility] [place] [facility] Apr 24, 2020 11:00 AM VA-TOBACCO FORMER USER [place] [facility] [place] [facility] Apr 24, 2020 11:00 AM VA-TOBACCO QUIT 15 YRS OR MORE [place] [facility] [place] [facility] Jan 15, 2018 10:57 AM QUIT TOBACCO USE > 7 YEARS AGO [place] [facility] [place] [facility] Dec 10, 2016 08:53 AM QUIT TOBACCO USE > 7 YEARS AGO [place] [facility] [place] [facility] Jul 19, 2015 10:22 AM QUIT TOBACCO USE > 7 YEARS AGO Quit about 40 years ago. [place] [facility] [place] [facility] November 14, 2004 10:00 AM HISTORY OF SMOKING [facility] [place] [place] [facility] November 14, 2004 10:00 AM LIFETIME NON-SMOKER [place] [facility] [place] [facility] Oct 25, 2003 10:34 AM HISTORY [facility]MO[facility] Oct 07, 2002 09:41 AM H[facility]ORY OF SMO[facility] Nov 03, 2001 10:31 AM QUIT TOBACCO USE > 7 YEARS AGO [facility] Jul 31, 2001 02:15 PM NON-TOBACCO USER Quit 20 yrs ago [facility] Advance Directives: All historical and current Section Date Range: From patient's date of to the date document was created. This section includes ALL of a patient's completed or amended [place] Advance and Rescinded Directives. The entries below indicate that a directive exists for the patient, but an actual copy is not included with this document. The data comes from all [place] facilities. Date Advance Directives Provider Source Jul 03, 2023 ADVANCE DIRECTIVE RICHARD BAZZI [facility] RL [facility] Encounter Notes: All associated encounter notes This section contains the clinical notes associated to the Encounter. Date/Time Encounter Note(s) Provider Source Apr 13, 2024 01:43 PM ADDENDUM: LOCAL TITLE: Addendum STANDARD TITLE: ADDENDUM DATE OF NOTE: APR 13, 2024@13:43:49 ENTRY DATE: APR 13, 2024@13:43:50 AUTHOR: ASHLEIGH DAVIS COSIGNER: URGENCY: STATUS: COMPLETED >risk for falls: may benefit from stair glider for basement. OT informed. /genoveva/ ROBERT DAVIS RN,MSN,CONCESSIONIST-C [facility] NURSE PRACTITIONER Signed: 04/13/2024 13:43 Receipt Acknowledged By: 04/13/2024 17:33 /genoveva/ Clotilde Rushing [facility] Occupational Therapist --- Original Document --- 04/12/24 [facility] BOILER MECHANIC PROGRESS NOTE: was seen for: check in Identified by name, , address and facial recognition: Y [facility] Ready: Yes [ ] No [x] HPI: Problem visit: f/u LBP and recent fall. Seen by Dr. Gracia and has L3-L4 intermamiar inj scheduled w possible medial branch blocks and consideration of lumbar interlaminar inj L5- S1 given severe foraminal narrowing. His concern is getting to basement to fill pellet stove. 01/13 when standing or walking 2/10 w rest non [facility] PCP Dr Yeager cardiology: Dr. Watson f/u 06/10/[address] Gracia To see Dr. Chirag Bills 04/22/24 11am + Dr. Daljit Narayan 05/06/24 2:15pm PMH: Active problems - Computerized Problem List is the source for the followin. Aortic valve stenosis moderate per echo 07/31/23 [facility], LVEF 45-50%, grade III diastolic dysfunction 2. Right foot drop 3. Frail elderly 4. Hypertension 08/14/23 SR w 2nd degree A-V block, mobiz I 5. History of surgery 06/27/22 ACDF 6. 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 Peripheral neuropathy due to type 2 diabetes mellitus 8. Diabetic retinopathy associated with type 2 diabetes mellitus 9. Coronary artery disease 3 vessel CABG @ [facility], 03/2016. 10. History of polyp of colon One TA, two HP polyps diverticulosis on 09/06/2010 colonoscopy Colonoscopy, flexible, proximal to splenic flexure; with removal of tumor(s), polyp(s), or other lesion(s) by snare technique: 01/24/15 per [facility] 11. Osteoarthritis 12. Elevated PSA (SNOMED CT 737982010) 13. Anemia Outside PCP ordered iron studies and FIT test 11/2022 14. B12 deficiency monitoring status (SNOMED CT 765907359) 15. Other and unspecified alcohol dependence, unspecified drinking behavior (ICD 16. Chronic pain (SNOMED CT 44748392) see note 12/30 23 MRI L/S 12/28 17. Hyperlipidemia (SNOMED CT 50949296) 18. Hypertensive heart AND chronic kidney disease with congestive heart failure 19. Diabetes mellitus (SNOMED CT 82919600) Allergies: LISINOPRIL The following VA and Non-VA meds were reconciled with patient: Active and Recently Outpatient Medications (excluding Supplies): Active Outpatient Medications Status 1) ACCU-CHEK GUIDE (GLUCOSE) TEST STRIP USE 1 STRIP TO ACTIVE TEST BLOOD SUGARS THREE TIMES A DAY 2) ACETAMINOPHEN 500MG TAB TAKE TWO TABLETS BY MOUTH ACTIVE THREE TIMES DAILY NEEDED FOR PAIN 3) AMMONIUM LACTATE 12% LOTION APPLY MODERATE AMOUNT ACTIVE TOPICALLY ONCE DAILY FOR DRY IRRITATED SKIN 4) ATORVASTATIN CALCIUM 80MG TAB TAKE ONE TABLET BY ACTIVE MOUTH ONCE DAILY FOR HIGH CHOLESTEROL 5) CHLORTHALIDONE 50MG TAB TAKE ONE TABLET BY MOUTH ONCE ACTIVE DAILY TO REMOVE FLUID/CONTROL BLOOD PRESSURE 6) CHOLECALCIF 50MCG (D3-2,000UNIT) TAB TAKE ONE TABLET HOLD BY MOUTH ONCE DAILY FOR VITAMIN SUPPLEMENTATION 7) DOCUSATE NA 100MG CAP TAKE ONE CAPSULE BY MOUTH TWICE ACTIVE DAILY NEEDED TO SOFTEN STOOL 8) EMPAGLIFLOZIN 25MG TAB TAKE ONE TABLET BY MOUTH ONCE ACTIVE DAILY FOR TYPE 2 DIABETES MELLITUS 9) FUROSEMIDE 20MG TAB TAKE ONE TABLET BY MOUTH EVERY ACTIVE MORNING TO REMOVE FLUID/CONTROL BLOOD PRESSURE 10) GABAPENTIN 300MG CAP TAKE ONE CAPSULE BY MOUTH AT ACTIVE BEDTIME FOR NERVE PAIN 11) INSULIN,ASPART,HUMAN 100 UNIT/ML INJ INJECT 5 [...] 1 ACTIVE BOTTLE BY MOUTH ONCE DAILY Active Non-VA Medications Status 1) Non-VA ASPIRIN 81MG EC TAB 81MG BY MOUTH ONCE DAILY ACTIVE 2) Non-VA FERROUS SULFATE TAB 28MG BY MOUTH ONCE DAILY ACTIVE 3) Non-VA IBUPROFEN TAB 200MG BY MOUTH TWICE DAILY ACTIVE NEEDED 4) Non-VA MULTIVITAMIN/MINERALS CAP/TAB 1 TABLET BY ACTIVE MOUTH EVERY DAY 18 Total Medications Recent Falls Y(x) N( ) Recent Infections Y( ) N(x) Recent Hospitalizations Y ( ) N(x) SH: no longer drives homewatch takes shopping on Fridays Drinks 2-3 art lights/day, son purchases a 30 back every 7-10 days fair water intake: drinks glucerna, coffee, milk or V8 eats a lot of hamburger Review of system: occ edema to RLE no hx of gout VITAL SIGNS: B/P: 130/90 (04/12/2024 13:34) Pulse: 64 (04/12/2024 13:34) Temperature: 97.5 F [36.4 C] (04/12/2024 13:34) Weight: 152 lb [68.95 kg] (12/04/2023 11:33) Height: 69 in [175.3 cm] (08/28/2023 11:15) BMI: BMI: 22.5 Pain: 7 (04/12/2024 13:34) (0-10 scale) Pulse Ox:Measurement DT POx (L/MIN)(%) 04/12/2024 13:34 99 FBS today 255 at apple pie last night Examination: pt is alert and oriented x4. NAD. HEENT: normal, lisp NECK: supple CVS: regular rate and rhythm, loud NOAH Lungs: clear to auscultation throughout, no use of accessory muscles EXT: no edema sitting at kichen table LAB CHEMISTRY & HEMATOLOGY Collection DT Specimen Test Name Result Units Ref Range 03/29/2024 12:00 SERUM TIBC 279 ug/dL 204 - 475 IRON 114 ug/dL 40 - 160 TranSat 40.9 % 20.0 - 50.0 Transferrin (TRF) 211 mg/dL 200 - 360 03/29/2024 12:00 SERUM VITAMIN D (25-OH) 17 L ng/mL 20 - 50 03/29/2024 12:00 URINE mALB/Cr 121.4 H mg/G 0 - 29.9 MicroAl 1.5 mg/dL Ref: RR UNAVAIL CREATININE URINE 12.36 mg/dL 03/29/2024 12:00 SERUM CREATININE, Serum 1.35 mg/dL 0.50 - 1.40 eGFR(CKD-EPI 2020 50 L mL/min Ref: >=60 SODIUM 135 mmol/L 135 - 145 POTASSIUM 4.5 mmol/L 3.5 - 5.0 CHLORIDE 100 mmol/L 100 - 110 CO2 28 mEq/L 20 - 30 UREA NITROGEN 43 H mg/dL 7 - 25 GLUCOSE 290 H mg/dL 65 - 100 URIC ACID 9.9 H mg/dL 3.5 - 7.2 03/29/2024 12:00 BLOOD !! HEMOGLOBIN A1C 7.7 H % 4.0 - 5.6 03/29/2024 12:00 BLOOD WBC 3.88 L K/cmm 4.50 - 11.00 RBC 2.94 L M/cmm 4.23 - 5.66 HGB 10.5 L g/dL 12.8 - 17 HCT 32.0 L % 39.2 - 50.4 MCV 108.8 H fl 82 - 99 MCH 35.7 H pg 26.2 - 32.6 MCHC 32.8 g/dL 30.8 - 35.1 RDW-CV 14.0 % 12.0 - 16.0 PLT 104 L K/cmm 140 - 360 NEUT % 78.9 H % 43.7 - 75.8 LYMPH % 11.6 L % 14.0 - 42.3 MONO % 6.2 % 5.1 - 13.7 EOS % 1.5 % 0.4 - 6.8 BASO % 1.3 % 0.1 - 2.0 IMMATURE GRAN % 0.5 % 0.0 - 0.7 NRBC % 0.0 % 0.0 - 0.0 NEUT, ABS 3.06 K/cmm 2.20 - 7.60 LYMPH, ABS 0.45 L K/cmm 1.00 - 3.20 MONO, ABS 0.24 L K/cmm 0.30 - 1.10 EOS, ABS 0.06 K/cmm 0.03 - 0.44 BASO, ABS 0.05 K/cmm 0.01 - 0.13 IMMATURE GRAN, AB 0.02 K/cmm 0.00 - 0.06 NRBC, ABS 0.00 K/cmm 0.00 - 0.00 Future Clinic Visits 05/08/2024 08:00 COM CARE-SKILLED HHC 07/13/2024 11:00 CWM/NO/PODIATRY A 10/07/2024 11:00 CWM/NO/OPTOMETRY/MERHAR All diagnostics from past month were reviewed with patient. Assessment/plan: >Osteoarthritis >cervicalgia: History of surgery 06/27/22 ACDF >lumbago: History of lumbar stenosis, surgical decompression in 2018 -neuropathy ##c/w tylenol 1gm TID PRN ##cont w neurontin 300mg qhs (feels this does is sufficent at this time) declines heat pack, topical pain medication f/u as planned for CSI >vit d def: resume vit D 2000 unts daily >hx of JOHN: labs stable, decrease iron to 2x/week >rising Uric acid: agreeable to review diet w nutirionist. >risk for falls: may benefit from stair glider for basement. OT informed. Return to clinic to see me per recall, sooner PRN. Review of medical records: 15 min Time spent w patient including shared decision makin min Post visit documentation: [address] time: 55 min No barriers; Patient understands and agrees to current treatment plan. If pt. has any questions, concerns, or changes in current health status he/she will call or come [facility] to the [facility]. (X) medications reconciled Outpt. Medication Reconciliation: Outpatient Medication Reconciliation No [...] discontinued are documented in this note. /genoveva/ ROBERT DAVIS RN,MSN,CONCESSIONIST-C [facility] NURSE PRACTITIONER Signed: 04/13/2024 13:42 Receipt Acknowledged By: 04/13/2024 14:38 /es/ Millie DUENASN [facility] general pediatrician 04/13/2024 ADDENDUM STATUS: COMPLETED >rising Uric acid: agreeable to review diet w nutirionist. Diet high in hamburger consumption /es/ ROBERT DAVIS RN,MSN,CONCESSIONIST-C [facility] NURSE PRACTITIONER Signed: 04/13/2024 13:43 Receipt Acknowledged By: * AWAITING SIGNATURE * OVIDIO LOWE [place] [facility] Apr 13, 2024 01:42 PM ADDENDUM: LOCAL TITLE: Addendum STANDARD TITLE: ADDENDUM DATE OF NOTE: APR 13, 2024@13:42:58 ENTRY DATE: APR 13, 2024@13:43 AUTHOR: ASHLEIGH DAVIS COSIGNER: URGENCY: STATUS: COMPLETED >rising Uric acid: agreeable to review diet w nutirionist. Diet high in hamburger consumption /es/ ROBERT DAVIS RN,MSN,CONCESSIONIST-C [facility] NURSE PRACTITIONER Signed: 04/13/2024 13:43 Receipt Acknowledged By: 04/16/2024 16:48 /genoveva/ OVIDIO LOWE RD, LDN REGISTERED DIETITIAN --- Original Document --- 04/12/24 [facility] BOILER MECHANIC PROGRESS NOTE: Oakley was seen for: check in Identified by name, , address and facial recognition: Y [facility] Ready: Yes [ ] No [x] HPI: Problem visit: f/u LBP and recent fall. Seen by Dr. Gracia and has L3-L4 intermamiar inj scheduled w possible medial branch blocks and consideration of lumbar interlaminar inj L5- S1 given severe foraminal narrowing. His concern is getting to basement to fill pellet stove. 7/10 when standing or walking 2/10 w rest non [facility] PCP Dr Yeager cardiology: Dr. Watson f/u 06/10/[address] Gracia To see Dr. Chirag Bills 04/22/24 11am + Dr. Daljit Narayan 05/06/24 2:15pm PMH: Active problems - Computerized Problem List is the source for the followin. Aortic valve stenosis moderate per echo 07/31/23 [facility], LVEF 45-50%, grade III diastolic dysfunction 2. Right foot drop 3. Frail elderly 4. Hypertension 08/14/23 SR w 2nd degree A-V block, mobiz I 5. History of surgery 06/27/22 ACDF 6. 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 Peripheral neuropathy due to type 2 diabetes mellitus 8. Diabetic retinopathy associated with type 2 diabetes mellitus 9. Coronary artery disease 3 vessel CABG @ [facility], 03/2016. 10. History of polyp of colon One TA, two HP polyps diverticulosis on 09/06/2010 colonoscopy Colonoscopy, flexible, proximal to splenic flexure; with removal of tumor(s), polyp(s), or other lesion(s) by snare technique: 01/24/15 per [facility] 11. Osteoarthritis 12. Elevated PSA (SNOMED CT 456709598) 13. Anemia Outside PCP ordered iron studies and FIT test 11/2022 14. B12 deficiency monitoring status (SNOMED CT 185661448) 15. Other and unspecified alcohol dependence, unspecified drinking behavior (ICD 16. Chronic pain (SNOMED CT 86381649) see note 12/30 23 MRI L/S 12/28 17. Hyperlipidemia (SNOMED CT 72971085) 18. Hypertensive heart AND chronic kidney disease with congestive heart failure 19. Diabetes mellitus (SNOMED CT 84435820) Allergies: LISINOPRIL The following VA and Non-VA meds were reconciled with patient: Active and Recently Outpatient Medications (excluding Supplies): Active Outpatient Medications Status 1) ACCU-CHEK GUIDE (GLUCOSE) TEST STRIP USE 1 STRIP TO ACTIVE TEST BLOOD SUGARS THREE TIMES A DAY 2) ACETAMINOPHEN 500MG TAB TAKE TWO TABLETS BY MOUTH ACTIVE THREE TIMES DAILY NEEDED FOR PAIN 3) AMMONIUM LACTATE 12% LOTION APPLY MODERATE AMOUNT ACTIVE TOPICALLY ONCE DAILY FOR DRY IRRITATED SKIN 4) ATORVASTATIN CALCIUM 80MG TAB TAKE ONE TABLET BY ACTIVE MOUTH ONCE DAILY FOR HIGH CHOLESTEROL 5) CHLORTHALIDONE 50MG TAB TAKE ONE TABLET BY MOUTH ONCE ACTIVE DAILY TO REMOVE FLUID/CONTROL BLOOD PRESSURE 6) CHOLECALCIF 50MCG (D3-2,000UNIT) TAB TAKE ONE TABLET HOLD BY MOUTH ONCE DAILY FOR VITAMIN SUPPLEMENTATION 7) DOCUSATE NA 100MG CAP TAKE ONE CAPSULE BY MOUTH TWICE ACTIVE DAILY NEEDED TO SOFTEN STOOL 8) EMPAGLIFLOZIN 25MG TAB TAKE ONE TABLET BY MOUTH ONCE ACTIVE DAILY FOR TYPE 2 DIABETES MELLITUS 9) FUROSEMIDE 20MG TAB TAKE ONE TABLET BY MOUTH EVERY ACTIVE MORNING TO REMOVE FLUID/CONTROL BLOOD PRESSURE 10) GABAPENTIN 300MG CAP TAKE ONE CAPSULE BY MOUTH AT ACTIVE BEDTIME FOR NERVE PAIN 11) INSULIN,ASPART,HUMAN 100 UNIT/ML INJ INJECT 5 [...] 1 ACTIVE BOTTLE BY MOUTH ONCE DAILY Active Non-VA Medications Status 1) Non-VA ASPIRIN 81MG EC TAB 81MG BY MOUTH ONCE DAILY ACTIVE 2) Non-VA FERROUS SULFATE TAB 28MG BY MOUTH ONCE DAILY ACTIVE 3) Non-VA IBUPROFEN TAB 200MG BY MOUTH TWICE DAILY ACTIVE NEEDED 4) Non-VA MULTIVITAMIN/MINERALS CAP/TAB 1 TABLET BY ACTIVE MOUTH EVERY DAY 18 Total Medications Recent Falls Y(x) N( ) Recent Infections Y( ) N(x) Recent Hospitalizations Y ( ) N(x) SH: no longer drives homewatch takes shopping on Fridays Drinks 2-3 art lights/day, son purchases a 30 back every 7-10 days fair water intake: drinks glucerna, coffee, milk or V8 eats a lot of hamburger Review of system: occ edema to RLE no hx of gout VITAL SIGNS: B/P: 130/90 (04/12/2024 13:34) Pulse: 64 (04/12/2024 13:34) Temperature: 97.5 F [36.4 C] (04/12/2024 13:34) Weight: 152 lb [68.95 kg] (12/04/2023 11:33) Height: 69 in [175.3 cm] (08/28/2023 11:15) BMI: BMI: 22.5 Pain: 7 (04/12/2024 13:34) (0-10 scale) Pulse Ox:Measurement DT POx (L/MIN)(%) 04/12/2024 13:34 99 FBS today 255 at [employer] last night Examination: pt is alert and oriented x4. NAD. HEENT: normal, lisp NECK: supple CVS: regular rate and rhythm, loud NOAH Lungs: clear to auscultation throughout, no use of accessory muscles EXT: no edema sitting at kichen table LAB CHEMISTRY & HEMATOLOGY Collection DT Specimen Test Name Result Units Ref Range 03/29/2024 12:00 SERUM TIBC 279 ug/dL 204 - 475 IRON 114 ug/dL 40 - 160 TranSat 40.9 % 20.0 - 50.0 Transferrin (TRF) 211 mg/dL 200 - 360 03/29/2024 12:00 SERUM VITAMIN D (25-OH) 17 L ng/mL 20 - 50 03/29/2024 12:00 URINE mALB/Cr 121.4 H mg/G 0 - 29.9 MicroAl 1.5 mg/dL Ref: RR UNAVAIL CREATININE URINE 12.36 mg/dL 03/29/2024 12:00 SERUM CREATININE, Serum 1.35 mg/dL 0.50 - 1.40 eGFR(CKD-EPI 2020 50 L mL/min Ref: >=60 SODIUM 135 mmol/L 135 - 145 POTASSIUM 4.5 mmol/L 3.5 - 5.0 CHLORIDE 100 mmol/L 100 - 110 CO2 28 mEq/L 20 - 30 UREA NITROGEN 43 H mg/dL 7 - 25 GLUCOSE 290 H mg/dL 65 - 100 URIC ACID 9.9 H mg/dL 3.5 - 7.2 03/29/2024 12:00 BLOOD !! HEMOGLOBIN A1C 7.7 H % 4.0 - 5.6 03/29/2024 12:00 BLOOD WBC 3.88 L K/cmm 4.50 - 11.00 RBC 2.94 L M/cmm 4.23 - 5.66 HGB 10.5 L g/dL 12.8 - 17 HCT 32.0 L % 39.2 - 50.4 MCV 108.8 H fl 82 - 99 MCH 35.7 H pg 26.2 - 32.6 MCHC 32.8 g/dL 30.8 - 35.1 RDW-CV 14.0 % 12.0 - 16.0 PLT 104 L K/cmm 140 - 360 NEUT % 78.9 H % 43.7 - 75.8 LYMPH % 11.6 L % 14.0 - 42.3 MONO % 6.2 % 5.1 - 13.7 EOS % 1.5 % 0.4 - 6.8 BASO % 1.3 % 0.1 - 2.0 IMMATURE GRAN % 0.5 % 0.0 - 0.7 NRBC % 0.0 % 0.0 - 0.0 NEUT, ABS 3.06 K/cmm 2.20 - 7.60 LYMPH, ABS 0.45 L K/cmm 1.00 - 3.20 MONO, ABS 0.24 L K/cmm 0.30 - 1.10 EOS, ABS 0.06 K/cmm 0.03 - 0.44 BASO, ABS 0.05 K/cmm 0.01 - 0.13 IMMATURE GRAN, AB 0.02 K/cmm 0.00 - 0.06 NRBC, ABS 0.00 K/cmm 0.00 - 0.00 Future Clinic Visits 05/08/2024 08:00 [facility] 07/13/2024 11:00 CWM/NO/PODIATRY A 10/07/2024 11:00 CWM/NO/OPTOMETRY/MERHAR All diagnostics from past month were reviewed with patient. Assessment/plan: >Osteoarthritis >cervicalgia: History of surgery 06/27/22 ACDF >lumbago: History of lumbar stenosis, surgical decompression in 2018 -neuropathy ##c/w tylenol 1gm TID PRN ##cont w neurontin 300mg qhs (feels this does is sufficent at this time) declines heat pack, topical pain medication f/u as planned for CSI >vit d def: resume vit D 2000 unts daily >hx of JOHN: labs stable, decrease iron to 2x/week >rising Uric acid: agreeable to review diet w nutirionist. >risk for falls: may benefit from stair glider for basement. OT informed. Return to clinic to see me per recall, sooner PRN. Review of medical records: 15 min Time spent w patient including shared decision makin min Post visit documentation: [address] time: 55 min No barriers; Patient understands and agrees to current treatment plan. If pt. has any questions, concerns, or changes in current health status he[facility]she will [facility] (X) medications reconciled Outpt. Medication Reconciliation: Outpatient Medication Reconciliation No [...] discontinued are documented in this note. /genoveva/ ROBERT DAVIS RN,MSN,CONCESSIONIST-C [facility] NURSE PRACTITIONER Signed: 04/13/2024 13:42 Receipt Acknowledged By: 04/13/2024 14:38 /genoveva/ Millie MEEHAN [facility] general pediatrician 04/13/2024 ADDENDUM STATUS: COMPLETED >risk for falls: may benefit from stair glider for basement. OT informed. /genoveva/ ROBERT DAVIS RN,MSN,CONCESSIONIST-C [facility] NURSE PRACTITIONER Signed: 04/13/2024 13:43 Receipt Acknowledged By: 04/13/2024 17:33 /genoveva/ Clotilde Rushing [facility] Occupational Therapist LATASHA DAVIS [facility] Apr 12, 2024 08:52 AM HB NOTE: LOCAL TITLE: [facility] [employer] PROGRESS NOTE STANDARD TITLE: HB NOTE DATE OF NOTE: APR 12, 2024@08:52 ENTRY DATE: APR 12, 2024@08:53 AUTHOR: ASHLEIGH DAVIS COSIGNER: URGENCY: STATUS: COMPLETED [facility] [employer] PROGRESS NOTE Has ADDENDA was seen for: check in Identified by name, , address and facial recognition: Y VVC Ready: Yes [ ] No [x] HPI: Problem visit: f/u LBP and recent fall. Seen by Dr. Gracia and has L3-L4 intermamiar inj scheduled w possible medial branch blocks and consideration of lumbar interlaminar inj L5- S1 given severe foraminal narrowing. His concern is getting to basement to fill pellet stove. 01/13 when standing or walking 2/10 w rest [facility] Yeager cardiology: Dr. Watson f/u 06/10/[address] Gracia To see Dr. Chirag Bills 04/22/24 11am + Dr. Daljit Narayan 05/06/24 2:15pm PMH: Active problems - Computerized Problem List is the source for the followin. Aortic valve stenosis moderate per echo 07/31/23 [facility], LVEF 45-50%, grade III diastolic dysfunction 2. Right foot drop 3. Frail elderly 4. Hypertension 08/14/23 SR w 2nd degree A-V block, mobiz I 5. History of surgery 06/27/22 ACDF 6. 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 Peripheral neuropathy due to type 2 diabetes mellitus 8. Diabetic retinopathy associated with type 2 diabetes mellitus 9. Coronary artery disease 3 vessel CABG @ [facility], 03/2016. 10. History of polyp of colon One TA, two HP polyps diverticulosis on 09/06/2010 colonoscopy Colonoscopy, flexible, proximal to splenic flexure; with removal of tumor(s), polyp(s), or other lesion(s) by snare technique: 01/24/15 per [facility] 11. Osteoarthritis 12. Elevated PSA (SNOMED CT 374343016) 13. Anemia Outside PCP ordered iron studies and FIT test 11/2022 14. B12 deficiency monitoring status (SNOMED CT 615808223) 15. Other and unspecified alcohol dependence, unspecified drinking behavior (ICD 16. Chronic pain (SNOMED CT 10869716) see note 12/30 23 MRI L/S 12/28 17. Hyperlipidemia (SNOMED CT 30302024) 18. Hypertensive heart AND chronic kidney disease with congestive heart failure 19. Diabetes mellitus (SNOMED CT 14399694) Allergies: LISINOPRIL The following VA and Non-VA meds were reconciled with patient: Active and Recently Outpatient Medications (excluding Supplies): Active Outpatient Medications Status 1) ACCU-CHEK GUIDE (GLUCOSE) TEST STRIP USE 1 STRIP TO ACTIVE TEST BLOOD SUGARS THREE TIMES A DAY 2) ACETAMINOPHEN 500MG TAB TAKE TWO TABLETS BY MOUTH ACTIVE THREE TIMES DAILY NEEDED FOR PAIN 3) AMMONIUM LACTATE 12% LOTION APPLY MODERATE AMOUNT ACTIVE TOPICALLY ONCE DAILY FOR DRY IRRITATED SKIN 4) ATORVASTATIN CALCIUM 80MG TAB TAKE ONE TABLET BY ACTIVE MOUTH ONCE DAILY FOR HIGH CHOLESTEROL 5) CHLORTHALIDONE 50MG TAB TAKE ONE TABLET BY MOUTH ONCE ACTIVE DAILY TO REMOVE FLUID/CONTROL BLOOD PRESSURE 6) CHOLECALCIF 50MCG (D3-2,000UNIT) TAB TAKE ONE TABLET HOLD BY MOUTH ONCE DAILY FOR VITAMIN SUPPLEMENTATION 7) DOCUSATE NA 100MG CAP TAKE ONE CAPSULE BY MOUTH TWICE ACTIVE DAILY NEEDED TO SOFTEN STOOL 8) EMPAGLIFLOZIN 25MG TAB TAKE ONE TABLET BY MOUTH ONCE ACTIVE DAILY FOR TYPE 2 DIABETES MELLITUS 9) FUROSEMIDE 20MG TAB TAKE ONE TABLET BY MOUTH EVERY ACTIVE MORNING TO REMOVE FLUID/CONTROL BLOOD PRESSURE 10) GABAPENTIN 300MG CAP TAKE ONE CAPSULE BY MOUTH AT ACTIVE BEDTIME FOR NERVE PAIN 11) INSULIN,ASPART,HUMAN 100 UNIT/ML INJ INJECT 5 [...] 1 ACTIVE BOTTLE BY MOUTH ONCE DAILY Active Non-VA Medications Status 1) Non-VA ASPIRIN 81MG EC TAB 81MG BY MOUTH ONCE DAILY ACTIVE 2) Non-VA FERROUS SULFATE TAB 28MG BY MOUTH ONCE DAILY ACTIVE 3) Non-VA IBUPROFEN TAB 200MG BY MOUTH TWICE DAILY ACTIVE NEEDED 4) Non-VA MULTIVITAMIN/MINERALS CAP/TAB 1 TABLET BY ACTIVE MOUTH EVERY DAY 18 Total Medications Recent Falls Y(x) N( ) Recent Infections Y( ) N(x) Recent Hospitalizations Y ( ) N(x) SH: no longer drives homewatch takes shopping on Fridays Drinks 2-3 art lights/day, son purchases a 30 back every 7-10 days fair water intake: drinks glucerna, coffee, milk or V8 eats a lot of hamburger Review of system: occ edema to RLE no hx of gout VITAL SIGNS: B/P: 130/90 (04/12/2024 13:34) Pulse: 64 (04/12/2024 13:34) Temperature: 97.5 F [36.4 C] (04/12/2024 13:34) Weight: 152 lb [68.95 kg] (12/04/2023 11:33) Height: 69 in [175.3 cm] (08/28/2023 11:15) BMI: BMI: 22.5 Pain: 7 (04/12/2024 13:34) (0-10 scale) Pulse Ox:Measurement DT POx (L/MIN)(%) 04/12/2024 13:34 99 FBS today 255 at [employer] last night Examination: pt is alert and oriented x4. NAD. HEENT: normal, lisp NECK: supple CVS: regular rate and rhythm, loud NOAH Lungs: clear to auscultation throughout, no use of accessory muscles EXT: no edema sitting at kichen table LAB CHEMISTRY & HEMATOLOGY Collection DT Specimen Test Name Result Units Ref Range 03/29/2024 12:00 SERUM TIBC 279 ug/dL 204 - 475 IRON 114 ug/dL 40 - 160 TranSat 40.9 % 20.0 - 50.0 Transferrin (TRF) 211 mg/dL 200 - 360 03/29/2024 12:00 SERUM VITAMIN D (25-OH) 17 L ng/mL 20 - 50 03/29/2024 12:00 URINE mALB/Cr 121.4 H mg/G 0 - 29.9 MicroAl 1.5 mg/dL Ref: RR UNAVAIL CREATININE URINE 12.36 mg/dL 03/29/2024 12:00 SERUM CREATININE, Serum 1.35 mg/dL 0.50 - 1.40 eGFR(CKD-EPI 2020 50 L mL/min Ref: >=60 SODIUM 135 mmol/L 135 - 145 POTASSIUM 4.5 mmol/L 3.5 - 5.0 CHLORIDE 100 mmol/L 100 - 110 CO2 28 mEq/L 20 - 30 UREA NITROGEN 43 H mg/dL 7 - 25 GLUCOSE 290 H mg/dL 65 - 100 URIC ACID 9.9 H mg/dL 3.5 - 7.2 03/29/2024 12:00 BLOOD !! HEMOGLOBIN A1C 7.7 H % 4.0 - 5.6 03/29/2024 12:00 BLOOD WBC 3.88 L K/cmm 4.50 - 11.00 RBC 2.94 L M/cmm 4.23 - 5.66 HGB 10.5 L g/dL 12.8 - 17 HCT 32.0 L % 39.2 - 50.4 MCV 108.8 H fl 82 - 99 MCH 35.7 H pg 26.2 - 32.6 MCHC 32.8 g/dL 30.8 - 35.1 RDW-CV 14.0 % 12.0 - 16.0 PLT 104 L K/cmm 140 - 360 NEUT % 78.9 H % 43.7 - 75.8 LYMPH % 11.6 L % 14.0 - 42.3 MONO % 6.2 % 5.1 - 13.7 EOS % 1.5 % 0.4 - 6.8 BASO % 1.3 % 0.1 - 2.0 IMMATURE GRAN % 0.5 % 0.0 - 0.7 NRBC % 0.0 % 0.0 - 0.0 NEUT, ABS 3.06 K/cmm 2.20 - 7.60 LYMPH, ABS 0.45 L K/cmm 1.00 - 3.20 MONO, ABS 0.24 L K/cmm 0.30 - 1.10 EOS, ABS 0.06 K/cmm 0.03 - 0.44 BASO, ABS 0.05 K/cmm 0.01 - 0.13 IMMATURE GRAN, AB 0.02 K/cmm 0.00 - 0.06 NRBC, ABS 0.00 K/cmm 0.00 - 0.00 Future Clinic Visits 05/08/2024 08:00 [facility] 07/13/2024 11:00 CWM/NO/PODIATRY A 10/07/2024 11:00 CWM/NO/OPTOMETRY/MERHAR All diagnostics from past month were reviewed with patient. Assessment/plan: >Osteoarthritis >cervicalgia: History of surgery 06/27/22 ACDF >lumbago: History of lumbar stenosis, surgical decompression in 2018 -neuropathy ##c/w tylenol 1gm TID PRN ##cont w neurontin 300mg qhs (feels this does is sufficent at this time) declines heat pack, topical pain medication f/u as planned for CSI >vit d def: resume vit D 2000 unts daily >hx of JOHN: labs stable, decrease iron to 2x/week >rising Uric acid: agreeable to review diet w nutirionist. >risk for falls: may benefit from stair glider for basement. OT informed. Return to clinic to see me per recall, sooner PRN. Review of medical records: 15 min Time spent w patient including shared decision makin min Post visit documentation: [address] time: 55 min No barriers; Patient understands and agrees to current treatment plan. If pt. has any questions, concerns, or changes in current health status he/she will call [facility] (X) medications reconciled Outpt. Medication Reconciliation: Outpatient Medication Reconciliation No [...] discontinued are documented in this note. /genoveva/ ROBERT DAVIS RN,MSN,CONCESSIONIST-C [facility] NURSE PRACTITIONER Signed: 04/13/2024 13:42 Receipt Acknowledged By: 04/13/2024 14:38 /genoveva/ Millie MEEHAN [facility] general pediatrician 04/13/2024 ADDENDUM STATUS: COMPLETED >rising Uric acid: agreeable to review diet w nutirionist. Diet high in hamburger consumption /genoveva/ ROBERT DAVIS RN,MSN,CONCESSIONIST-C [facility] NURSE PRACTITIONER Signed: 04/13/2024 13:43 Receipt Acknowledged By: * AWAITING SIGNATURE * OVIDIO LOWE 04/13/2024 ADDENDUM STATUS: COMPLETED >risk for falls: may benefit from stair glider for basement. OT informed. /es/ ROBERT DAVIS RN,MSN,CONCESSIONIST-C [facility] NURSE PRACTITIONER Signed: 04/13/2024 13:43 Receipt Acknowledged By: * AWAITING SIGNATURE * CLOTILDE RUSHING [place] NM [facility]
--- OUTSIDE RECORDS SUMMARY | 2024-07-04 16:11 | XMS_ITS ---
Author Name [facility] [place] [facility] Address [address] [place] [address] Care Team Providers Care Clinical Material Handler Name Role Phone ROBERT DAVIS Primary [...] O MEDEX BRONZ E Jun 06, 2001 [id number] OMAS PATIENT ANTHEM BCBS OF CT (BLUECARD) MEDICARE SUPPLEMEN BHARGAVI PSUED O MEDEX BRONZ E Jun 06, 2001 [id number] OM[place] PAT[place] SUPPLEMEN BHARGAVI MEDEX BRONZ E Jun 06, 2001 [id number] [place] SUPPLEMEN BHARGAVI PSUED O MEDEX BRONZ E Jun 06, 2001 [id number] HUDRACHEL BOYER OM[place] PATIENT [place] MED[place] SUPPLEMEN BHARGAVI PSUED O MEDEX BRONZ E Jun 06, 2001 [id number] HUDMERLIN,RACHEL OMAS PATIENT MEDICARE (WNR) MEDICARE (M) PART A May 07, 2001 PART A [id number] ([id number] HUDOCK,RACHEL OMAS PATIENT MEDICARE (WNR) MEDICARE (M) PART B May 07, 2001 PART B [id number] ([id number] HUDOCK,RACHEL OMAS PATIENT MEDICARE (WNR) MEDICARE (M) PART A May 07, 2001 PART A [id number] ([id number] HUDOCK,RACHEL OMAS PATIENT MEDICARE (WNR) MEDICARE (M) PART B May 07, 2001 PART B [id number] ([id number] HUDMERLIN,RACHEL OMAS PATIENT MEDICARE (WNR) MEDICARE (M) PART A May 07, 2001 PART A [id number] HUDRACHEL BOYER OMAS PATIENT MEDICARE (WNR) MEDICARE (M) PART B May 07, 2001 PART B [id number] HUDMERLIN,RACHEL OMAS PATIENT MEDICARE (WNR) MEDICARE (M) PART A May 07, 2001 PART A [id number] ([id number] HUDMERLIN,RACHEL OMAS PATIENT MEDICARE (WNR) MEDICARE (M) PART B May 07, 2001 PART B [id number] ([id number] HUDRACHEL BOYER OMGUANACO PATIENT Selected Encounter This section includes the information on record at [place] for the Encounter. Date/Time Encounter Type Encounter Description Reason Pro vider Source Jan 30, 2024 04:06 PM Outpatient Encounter [facility] PHYSIC EXTND(WIRELESS SALES MANAGER,PER DIEM RN,PA) IHE Encounter Template Text not used by [...] - MEDICINE [place] [facility] [place] [facility] Jul 13, 2024 11:00 AM AMBULATORY - MEDICINE [place] [facility] [place] [facility] Social History: Smoking Status (Most current) and Tobacco Use (All prior to encounter date) This section includes the most current, and the historical, smoking and tobacco- related health factors from the [facility] facility where the Encounter took place. Current Smoking Status This section includes the most current smoking, or tobacco-related health factor, from the [place] facility where the Encounter took place. Date/Time Current Smoking Status Comment Facil it November 17, 2023 08:31 AM VA-TOBACCO FORMER USER [place] [facility] [place] [facility] Tobacco Use History This section includes a history of the smoking, or tobacco-related health factors, that were collected on or before the date of the Encounter. The data comes from the [place] facility where the Encounter took place. Date/Time Smoking Status/Tobac co Use Comment Facility November 17, 2023 08:31 AM VA-TOBACCO QUIT 15 YRS OR MORE [facility] [place] [facility] May 07, 2022 09:00 AM VA-TOBACCO FORMER USER [facility] [place] [facility] May 07, 2022 09:00 AM VA-TOBACCO QUIT 15 YRS OR MORE [facility] [place] [facility] May 21, 2021 08:00 AM VA-TOBACCO FORMER USER [facility] [place] [facility] May 21, 2021 08:00 AM VA-TOBACCO QUIT 15 YRS OR MORE [facility] [place] [facility] Apr 24, 2020 11:00 AM VA-TOBACCO FORMER USER [facility] [place] [facility] Apr 24, 2020 11:00 AM VA-TOBACCO QUIT 15 YRS OR MORE [facility] [place] [facility] Jan 15, 2018 10:57 AM QUIT TOBACCO USE > 7 YEARS AGO [facility] [place] [facility] Dec 10, 2016 08:53 AM QUIT TOBACCO USE > 7 YEARS AGO [facility] [place] [facility] Jul 19, 2015 10:22 AM QUIT TOBACCO USE > 7 YEARS AGO [facility] about 40 years ago. [facility] November 14, 2004 10:00 AM [facility] November 14, 2004 10:00 AM LIFETIME [facility] Oct 25, 2003 10:34 AM [facility] Oct 07, 2002 09:41 AM [facility] Nov 03, 2001 10:31 AM QUIT TOBACCO USE > 7 YEARS AGO [facility] Jul 31, 2001 02:15 PM NON-TOBACCO USER Quit 20 yrs ago [facility] Advance Directives: All historical and current Section Date Range: From patient's date of to the date document was created. This section includes ALL of a patient's completed or amended [place] Advance and Rescinded Directives. The entries below indicate that a directive exists for the patient, but an actual copy is not included with this document. The data comes from all [place] facilities. Date Advance Directives Provider Source Jul 03, 2023 ADVANCE DIRECTIVE RICHARD BAZZI [facility] Encounter Notes: All associated encounter notes This section contains the clinical notes associated to the Encounter. Date/Time Encounter Note(s) Provider Source Feb 03, 2024 09:52 AM ADDENDUM: LOCAL TITLE: Addendum STANDARD TITLE: ADDENDUM DATE OF NOTE: FEB 03, 2024@09:52:56 ENTRY DATE: FEB 03, 2024@09:52:57 AUTHOR: MILLIE DAVENPORT EXP COSIGNER: URGENCY: STATUS: COMPLETED PLAN OF CARE REVIEWED WITH IDT TEAM /genoveva/ Millie MEEHAN [facility] line crew supervisor Signed: 02/03/2024 09:53 Receipt Acknowledged By: 02/03/2024 09:54 /es/ JHONNY NIEVES RN, BSN [facility] SENIOR TECHNICAL EDITOR 02/03/2024 12:01 /es/ MELODIE MCGEE RN [facility] line crew supervisor 02/04/2024 13:55 /es/ MARQUES GRANGER [facility] NURSE PRACTITIONER 02/03/2024 10:53 /es/ PADMA URIBE HB Clinical Pharmacist Practitioner 02/03/2024 09:55 /es/ ROBERT DAVIS RN,MSN,BRANDS EDITOR-C HB NURSE PRACTITIONER 02/04/2024 14:22 /es/ OVIDIO LOWE, RD, LDN REGISTERED DIETITIAN 02/03/2024 11:58 /es/ MILLI HIRSCH, WIRELESS SALES MANAGER HB Nurse Practitioner 02/03/2024 10:03 /es/ RCIHARD BAZZI [facility] Insurance Job Titles 02/03/2024 10:11 /es/ Clotilde Arthur HB Occupational Therapist 02/08/2024 21:11 /es/ CASSANDRA FERRELL STAFF DIETITIAN 02/03/2024 21:54 /es/ Aman Rascon RN BSN HB SENIOR TECHNICAL EDITOR 02/04/2024 08:19 /es/ TERRANCE Waller MD --- Original Document --- 01/30/24 [facility] INTERDISCIPLINARY NOTE: INTERDISCIPLINARY NOTE Allergies: LISINOPRIL Risk Assessment Level 1 Low risk DNR: No Advanced Directive Completed: Yes Family/Community Support:darci Loya [phone] ,dtr n law manages meds Care [employer] 12 hrs weekly Mental Status: A & O X 3 PLAN OF CARE 90 day Dates covered by plan of care February 03 2024 to Apr 2024 Primary Care Provider: Marques Granger WIRELESS SALES MANAGER PROBLEM LIST: Active problems - Computerized Problem List is the source for the followin. 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 Peripheral neuropathy due to type 2 diabetes mellitus 3. Diabetic retinopathy associated with type 2 diabetes mellitus 4. 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 5. Personal History of Colonic Polyps One TA, two HP polyps diverticulosis on 09/06/2010 colonoscopy 6. Osteoarthritis 7. Elevated Prostate Specific Antigen (PSA) 8. Anemia * 9. Vitamin B 12 Deficiency 10. Other and unspecified alcohol dependence, unspecified drinking behavior (ICD 11. Back Pain 12. Hyperlipidemia (SNOMED CT 82392094) 13. Hypertension (SNOMED CT 21240232) 14. Diabetes mellitus (SNOMED CT 58636064) Active Outpatient Medications Status 1) ACETAMINOPHEN 500MG [...] ACTIVE MOUTH EVERY DAY 16 Total Medications Gender Specific Health Assessment: hx of Elevate PSA Fall Risk: [facility] 10 Fall Risk Assessment Tool Required Core [...] considered at risk for falling. Created by: [facility] Functional Limitations Use [...] process GOAL will not sustain a fall Beaver will demonstrate selective preventative measures to prevent [...] to be under 200 in 3 months. Beaver will participate in activities that reduce blood [...] dizziness, lightheadedness, headache or vision changes. Evaluate Beaver reports of evidence of extreme fatigue and activity intolerance. Educate Beaver on signs and symptoms of hypertension and when to report to [facility] provider(s) or seek emergency medical care. Monitor response to medications to control blood pressure. Provide education about anti- hypertensive medication. Educate on life-style modifications that can reduce hypertension/hyperlipidemia. Heart Healthy Diet (low sodium, low fat/cholesterol, high fiber), Assess and teach in home self BP checks. Teach CGs to notify [facility] and or 911 as needed. Skilled Interventions: set up medications as ordered venipuncture per WIRELESS SALES MANAGER order oxygen saturation :as needed SOB [...] recognize changes that require reporting to [facility] staff patient will do accuchecks and follow diabetic diet patient will demonstrate correct use of adaptive equipment patient will be safe in home with environment adjusted to accomodate decrease in cognition and/or increase in disease progression Involvement of additional [facility] team members: N.P. assess and attach specific plan SW assess and attach specific plan RD assess and attach specific plan O.T. assess and attach specific plan request pharmacy review of medications Discharge Plan when able to remain in community safely with assistance of services and or family Per [facility] Discharge Policy Nadine is an 88 year old male who lives alone in a single family home. He has 2 son's who live by and are very involved and supportive. Beaver's dnl manages medications and prefills med box's weekly for . Family prepares meals for as well. has a hx of IDDM is followed by Dr Slater, CKD and is followed by Dr Jaimes. BG poorly controlled. Nadine does not always follow dietary reccomendations and eats mostly prepared frozen meals. Education provided but because nadine lives alone this form of food is easier for him to prepare. A1C 6.8 Insulin doses adjusted to (aspart //6 and glargine 16 units daily)and is on Empagliflozin 25mg po daily. with a hx of chronic back pain most recently with a report of increased pain. He recently had a physical with Dr Yeager who ordered an MRI that showed spinal stenosis and compression in the lumbar region. Nadine has an appt with Neurosurgeon Dr Gracia on Feb 11 at 930am. Currently, reports to taking Tylenol 500mg 2 tabs twice a day with minimal relief. The pain resolves . Beaver's gait is slightly unsteady at times. He uses a walker when he leaves the home. Around the house he will use the cane. He has reported a recent fall with minor injury. with a hx of CAD is followed by Dr Sewell insurance and benefits clerk.Recent Echo performed .Request records. Beaver's bp has been running higher than usual Dr Yeager comm PCP increased Lisinopril doseage to 10mg po daily with effect. Bp improved. Dtr n law prefills meds. Vit D 20ng/ml with current doseage of 50mcg daily. WHAT MATTERS What Matters was addressed at this visit. Comment: to stay at home as long as I can MEDICATION Medications were addressed at this visit. Comment: Med rec performed by PCP. Meds reviewed each visit . DNL manages meds MENTATION Depression was addressed at this visit. Comment: Lonely. Denies any S.I. family supportive. Followed by NEW ACCOUNT INTERVIEWER MENTATION Dementia was addressed at this visit. Comment: AOX3 forgetful at times. MENTATION Delirium was addressed at this visit. Comment: No sx noted MOBILITY -------- Mobility was addressed at this visit. Comment: Gait sl steady. Use of cane and walker. Free from falls. Beaver is followed by Dr Chacon =Podiatry Dr Schumacher =Opthomologist Dr Yeager =community provider Dr Sewell=Chemical Cell Changer Beaver receives 12 hrs of MEDICAL OPERATIONS SUPERVISOR hrs through Care tenders to assist with adls and Iadls. Beaver's goal is to live at home as long as possible. Continue to provide comprehensive medical care in the home. Assess for ss of depression, coping, home safety. has ongoing complex medical needs and benefits from [facility] interdisciplinary management. Beaver and cg are included in decision making. All questions answered, education regarding medication, and disease mgt reinforced with who verbalizes understanding. Beaver will be free from falls, infection, and hospitalizations over the next 90 days. PLAN OF CARE REVIEWED WITH IDT TEAM /genoveva/ Millie MEEHAN [facility] line crew supervisor Signed: 01/30/2024 16:15 02/03/2024 ADDENDUM STATUS: COMPLETED Will continue to follow every 6-12 months for routine medical care and as needed for changes in condition. /genoveva/ ROBERT DAVIS RN,MSN,BRANDS EDITOR-C [facility] NURSE PRACTITIONER Signed: 02/03/2024 09:55 02/03/2024 ADDENDUM STATUS: COMPLETED Insurance Job Titles is available for psychosocial support as needed. Annual assessment to be conducted November 2024 unless otherwise indicated. /genoveva/ MARY GARCIA [facility] Insurance Job Titles Signed: 02/03/2024 10:06 02/03/2024 ADDENDUM STATUS: COMPLETED is currently followed by OT to address functional abilities and ongoing assessment of equipment and home safety needs. Once current rehab needs are addressed, [facility] Rehab will follow up with at least annually and as need arises for change in function. /es/ Clotilde Arthur [facility] Occupational Therapist Signed: 02/03/2024 10:12 02/03/2024 ADDENDUM STATUS: COMPLETED Will continue to review medication regimen quarterly. /es/ PADMA URIBE [facility] Clinical Pharmacist Practitioner Signed: 02/03/2024 10:53 [facility]ENPORT [facility] Jan 30, 2024 04:06 PM HB NOTE: LOCAL TITLE: [facility] INTERDISCIPLINARY NOTE STANDARD TITLE: [facility] NOTE DATE OF NOTE: JAN 30, 2024@16:06 ENTRY DATE: JAN 30, 2024@16:06:40 AUTHOR: MILLIE DAVENPORT EXP COSIGNER: URGENCY: STATUS: COMPLETED [facility] INTERDISCIPLINARY NOTE Has ADDENDA INTERDISCIPLINARY NOTE Allergies: LISINOPRIL Risk Assessment Level 1 Low risk DNR: No Advanced Directive Completed: Yes Family/Community Support:son Vincenzo [phone] ,dtr n law manages meds [employer] 12 hrs weekly Mental Status: A & O X 3 PLAN OF CARE 90 day Dates covered by plan of care February 03 2024 to Apr 2024 Primary Care Provider: Marques Granger WIRELESS SALES MANAGER PROBLEM LIST: Active problems - Computerized Problem List is the source for the followin. 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 Peripheral neuropathy due to type 2 diabetes mellitus 3. Diabetic retinopathy associated with type 2 diabetes mellitus 4. 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 5. Personal History of Colonic Polyps One TA, two HP polyps diverticulosis on 09/06/2010 colonoscopy 6. Osteoarthritis 7. Elevated Prostate Specific Antigen (PSA) 8. Anemia * 9. Vitamin B 12 Deficiency 10. Other and unspecified alcohol dependence, unspecified drinking behavior (ICD 11. Back Pain 12. Hyperlipidemia (SNOMED CT 62629673) 13. Hypertension (SNOMED CT 32253231) 14. Diabetes mellitus (SNOMED CT 38516918) Active Outpatient Medications Status 1) ACETAMINOPHEN 500MG [...] ACTIVE MOUTH EVERY DAY 16 Total Medications Gender Specific Health Assessment: hx of Elevate PSA Fall Risk: [facility] 10 Fall Risk Assessment Tool Required Core [...] considered at risk for falling. Created by: [facility] Functional Limitations Use of [...] : A1C will be less than 8 Beaver will have a BG reading of less [...] to be under 200 in 3 months. Beaver will participate in activities that reduce blood [...] dizziness, lightheadedness, headache or vision changes. Evaluate Beaver reports of evidence of extreme fatigue and activity intolerance. Educate on signs and symptoms of hypertension and when to report to [facility] provider(s) or seek emergency medical care. Monitor response to medications to control blood pressure. Provide education about anti- hypertensive medication. Educate on life-style modifications that can reduce hypertension/hyperlipidemia. Heart Healthy Diet (low sodium, low fat/cholesterol, high fiber), Assess and teach in home self BP checks. Teach CGs to notify [facility] and or 911 as needed. Skilled Interventions: set up medications as ordered venipuncture per WIRELESS SALES MANAGER order oxygen saturation :as needed SOB [...] recognize changes that require reporting to [facility] staff patient will do accuchecks and follow diabetic diet patient will demonstrate correct use of adaptive equipment patient will be safe in home with environment adjusted to accomodate decrease in cognition and/or increase in disease progression Involvement of additional [facility] team members: N.P. assess and attach specific plan SW assess and attach specific plan RD assess and attach specific plan O.T. assess and attach specific plan request pharmacy review of medications Discharge Plan when able to remain in community safely with assistance of services and or family Per [facility] Discharge Policy Beaver is an 88 year old male who lives alone in a single family home. He has 2 son's who live by and are very involved and supportive. Beaver's dnl manages medications and prefills med box's weekly for . Family prepares meals for as well. Beaver has a hx of IDDM is followed by Dr Slater, CKD and is followed by Dr Jaimes. BG poorly controlled. Beaver does not always follow dietary reccomendations and eats mostly prepared frozen meals. Education provided but because nadine lives alone this form of food is easier for him to prepare. A1C 6.8 Insulin doses adjusted to (aspart 5/3/6 and glargine 16 units daily)and is on Empagliflozin 25mg po daily. Beaver with a hx of chronic back pain most recently with a report of increased pain. He recently had a physical with Dr Yeager who ordered an MRI that showed spinal stenosis and compression in the lumbar region. Nadine has an appt with Neurosurgeon Dr Gracia on Feb 11 at 930am. Currently, reports to taking Tylenol 500mg 2 tabs twice a day with minimal relief. The pain resolves . 's gait is slightly unsteady at times. He uses a walker when he leaves the home. Around the house he will use the cane. He has reported a recent fall with minor injury. Nadine with a hx of CAD is followed by Dr Sewell insurance and benefits clerk.Recent Echo performed .Request records. 's bp has been running higher than usual Dr Yeager comm PCP increased Lisinopril doseage to 10mg po daily with effect. Bp improved. Dtr n law prefills meds. Vit D 20ng/ml with current doseage of 50mcg daily. WHAT MATTERS What Matters was addressed at this visit. Comment: to stay at home as long as I can MEDICATION Medications were addressed at this visit. Comment: Med rec performed by PCP. Meds reviewed each visit . DNL manages meds MENTATION Depression was addressed at this visit. Comment: Lonely. Denies any S.I. family supportive. Followed by NEW ACCOUNT INTERVIEWER MENTATION Dementia was addressed at this visit. Comment: AOX3 forgetful at times. MENTATION Delirium was addressed at this visit. Comment: No sx noted MOBILITY -------- Mobility was addressed at this visit. Comment: Gait sl steady. Use of cane and walker. Free from falls. is followed by Dr Chacon =Podiatry Dr Schumacher =Opthomologist Dr Yeager =community provider Dr Sewell=Chemical Cell Changer receives 12 hrs of MEDICAL OPERATIONS SUPERVISOR hrs through Care tend[employer] to assist with adls and Iadls. Beaver's goal is to live at home as long as possible. Continue to provide comprehensive medical care in the home. Assess for ss of depression, coping, home safety. has ongoing complex medical needs and benefits from [facility] interdisciplinary management. and cg are included in decision making. All questions answered, education regarding medication, and disease mgt reinforced with who verbalizes understanding. Beaver will be free from falls, infection, and hospitalizations over the next 90 days. PLAN OF CARE REVIEWED WITH IDT TEAM /genoveva/ Millie MEEHAN [facility] line crew supervisor Signed: 01/30/2024 16:15 02/03/2024 ADDENDUM STATUS: COMPLETED PLAN OF CARE REVIEWED WITH IDT TEAM /genoveva/ Millie MEEHAN [facility] line crew supervisor Signed: 02/03/2024 09:53 Receipt Acknowledged By: 02/03/2024 09:54 /es/ JHONNY NIEVES RN, BSN [facility] SENIOR TECHNICAL EDITOR * AWAITING SIGNATURE * MELODIE MCGEE * AWAITING SIGNATURE * MARQUES GRANGER 02/03/2024 10:53 /es/ PADMA URIBE [facility] Clinical Pharmacist Practitioner 02/03/2024 09:55 /es/ ROBERT DAVIS RN,MSN,BRANDS EDITOR-C [facility] NURSE PRACTITIONER * AWAITING SIGNATURE * OVIDIO LOWE * AWAITING SIGNATURE * MILLI HIRSCH 02/03/2024 10:03 /es/ RICHARD BAZZI MANAGER STRATEGIC [facility] Insurance Job Titles 02/03/2024 10:11 /es/ Clotilde Arthur [facility] Occupational Therapist * AWAITING SIGNATURE * CASSANDRA FERRELL * AWAITING SIGNATURE * AMAN RASCON * AWAITING SIGNATURE * TERRANCE WALLER 02/03/2024 ADDENDUM STATUS: COMPLETED Will continue to follow every 6-12 months for routine medical care and as needed for changes in condition. /genoevva/ ROBERT DAVIS RN,MSN,BRANDS EDITOR-C [facility] NURSE PRACTITIONER Signed: 02/03/2024 09:55 02/03/2024 ADDENDUM STATUS: COMPLETED Insurance Job Titles is available for psychosocial support as needed. Annual assessment to be conducted November 2024 unless otherwise indicated. /es/ MARY GARCIA [facility] Insurance Job Titles Signed: 02/03/2024 10:06 02/03/2024 ADDENDUM STATUS: COMPLETED is currently followed by OT to address functional abilities and ongoing assessment of equipment and home safety needs. Once current rehab needs are addressed, [facility] Rehab will follow up with Beaver at least annually and as need arises for change in function. /es/ Clotilde Arthur [facility] Occupational Therapist Signed: 02/03/2024 10:12 02/03/2024 ADDENDUM STATUS: COMPLETED Will continue to review medication regimen quarterly. /es/ PADMA URIBE [facility] Clinical Pharmacist Practitioner Signed: 02/03/2024 10:53 MILLIE DAVENPORT [facility]
--- OUTSIDE RECORDS SUMMARY | 2024-07-04 16:11 | XMS_ITS | Encounter Summary ---
Author Name [facility] [place] [place] Organization [facility] [place] Address [address] [place] [address] Care Team Providers Care Receiver/Laborer Name Role Phone ROBERT DAVIS Primary Care [...] O MEDEX BRONZ E Jun 06, 2001 [id number] OMAS PATIENT ANTHEM BCBS OF CT (BLUECARD) MEDICARE SUPPLEMEN BHARGAVI PSUED O MEDEX BRONZ E Jun 06, 2001 [id number] OMAS PATIENT BCBS [place] MEDICARE SUPPLEMEN BHARGAVI MEDEX BRONZ E Jun 06, 2001 [id number] OM[place] PATIENT [place] SUPPLEMEN BHARGAVI PSUED O MEDEX BRONZ E Jun 06, 2001 [id number] RACHEL RIOS [place] PATIENT [place] MED[place] SUPPLEMEN BHARGAVI PSUED O MEDEX BRONZ E Jun 06, 2001 [id number] HUDRACHEL BOYER OMAS PATIENT MEDICARE (WNR) MEDICARE (M) PART A May 07, 2001 PART A [id number] ([id number] HUDOCKRACHEL OMAS PATIENT MEDICARE (WNR) MEDICARE (M) PART B May 07, 2001 PART B [id number] ([id number] HUDOCK,RACHEL OMAS PATIENT MEDICARE (WNR) MEDICARE (M) PART A May 07, 2001 PART A [id number] HUDMERLIN,RACHEL OMAS PATIENT MEDICARE (WNR) MEDICARE (M) PART B May 07, 2001 PART B [id number] RACHEL RIOS OMAS PATIENT MEDICARE (WNR) MEDICARE (M) PART A May 07, 2001 PART A [id number] ([id number] HUDRACHEL BOYER OMAS PATIENT MEDICARE (WNR) MEDICARE (M) PART B May 07, 2001 PART B [id number] ([id number] HUDMERLIN,RACHEL OMAS PATIENT MEDICARE (WNR) MEDICARE (M) PART A May 07, 2001 PART A [id number] HUDRACHEL BOYER OMAS PATIENT MEDICARE (WNR) MEDICARE (M) PART B May 07, 2001 PART B [id number] HUDRACHEL BOYER OMGUANACO PATIENT Selected Encounter This section includes the information on record at [place] for the Encounter. Date/Time Encounter Type Encounter Description Reason Provider Source Feb 26, 2024 08:19 AM QNHP OL DIG ASSMT&MGMT 21+ [facility] - CLINICAL PHARMACIST ICD-10-CM Z79.899 Other long term care pharmacist (current) drug therapy PADMA URIBE Encounter Template Text not used by [facility] Assessments - Encounter Diagnoses This section includes the primary and secondary diagnoses documented for the Encounter. Date/Time Primary/Secondary Diagnosis Diagnosis Name Provider Source Feb 26, 2024 11:33 AM PRIMARY Other fdc (current) drug therapy RONYPADMA [facility] Plan of Treatment: Future Appointments (+ 6 months) and Future Tests (+/- 45 days) The Plan of Treatment section includes future care activities for the patient from all [place] [facility]. This section includes future appointments and future orders which are active, pending or scheduled. Future Appointments This section includes appointments that were scheduled to occur 6 months from the date of the Encounter, up to a maximum of 20 appointments. The data comes from all [facility] facilities. Appointment Date/Time Appointment Type Appointme nt Facility Name May 08, 2024 08:00 AM AMBULATORY - MEDICINE [facility] Jul 13, 2024 11:00 AM AMBULATORY MEDICINE [facility] Active, Pending, and Scheduled Orders This section includes a listing of several types of active, pending, and scheduled orders, including clinic medications orders, diagnostic test orders, procedure orders and consult orders; where the start date of the order is 45 days before the date of the Encounter or 45 days after the date of theEncounter. The data comes from all [facility]. Test Date/Time Test Type Test Details Facility Name Apr 07, 2024 04:04 PM Consult Order [facility] NON-SKILLED HOME HEALTH AIDE Cons Mild Disabilities Teacher's Choice [facility] Social History: Smoking Status (Most current) [...] took place. Date/Time Current Smoking Status Comment [facility] it November 17, 2023 08:31 AM VA-TOBACCO FORMER USER [facility] Tobacco Use History This section includes a history of the smoking, or tobacco-related health factors, that were collected on or before the date of the Encounter. The data comes from the [place] facility where the Encounter took place. Date/Time Smoking Status/Tobac co Use Comment Facility November 17, 2023 08:31 AM [place]-TOBACCO QUIT 15 YRS OR MORE [facility] May 07, 2022 09:00 AM VA-TOBACCO FORMER USER [place] [facility] [place] [facility] May 07, 2022 09:00 AM VA-TOBACCO QUIT 15 YRS OR MORE [facility] [place] [facility] May 21, 2021 08:00 AM VA-TOBACCO FORMER USER [facility] [place] [facility] May 21, 2021 08:00 AM VA-TOBACCO QUIT 15 YRS OR MORE [facility] [place] [facility] Apr 24, 2020 11:00 AM VA-TOBACCO FORMER USER [facility] [place] [facility] Apr 24, 2020 11:00 AM VA-TOBACCO QUIT 15 YRS OR MORE [facility] [place] [facility] Jan 15, 2018 10:57 AM QUIT TOBACCO USE > 7 YEARS AGO [facility] [place] [facility] Dec 10, 2016 08:53 AM QUIT TOBACCO USE > 7 YEARS AGO [facility] [place] [facility] Jul 19, 2015 10:22 AM QUIT TOBACCO USE > 7 YEARS AGO Quit about 40 years ago. [facility] [place] [facility] November 14, 2004 10:00 AM HISTORY OF SMOKING [facility] [place] [facility] November 14, 2004 10:00 AM LIFETIME NON-SMOKER [facility] [place] [facility] Oct 25, 2003 10:34 AM HISTORY OF SMOKING [facility] [place] [facility] Oct 07, 2002 09:41 AM HISTORY OF SMOKING [facility] [place] [facility] Nov 03, 2001 10:31 AM QUIT TOBACCO USE > 7 YEARS AGO [facility] [place] [facility] Jul 31, 2001 02:15 PM NON-TOBACCO USER Quit 20 yrs ago [facility] [place] [facility] Advance Directives: All historical and current [...] Jul 03, 2023 ADVANCE DIRECTIVE RICHARD BAZZI [place] [facility] [place] [facility] Encounter Notes: All associated encounter notes This section contains the clinical notes associated to the Encounter. Date/Time Encounter Note(s) Provider Source Feb 26, 2024 08:20 AM [facility] MEDICATION MG T NOTE: LOCAL TITLE: [facility] PHARMACY MEDICATION REVIEW STANDARD TITLE: [facility] MEDICATION MGT NOTE DATE OF NOTE: FEB 26, 2024@08:20 ENTRY DATE: FEB 26, 2024@08:20:10 AUTHOR: PADMA URBIE COSIGNER: URGENCY: STATUS: COMPLETED Gonzalo Rios is an 88 year-old WHITE MALE. PMH (per problem list/chart review): CKD, peripheral neuropathy, diabetic retinopathy, CAD s/p CABG, OA, elevated PSA, anemia, vit B12 deficiency, EtOH dependence, back pain, HLD, HTN, T2DM, HF, hx of colon polyp s/p removal, aortic valve stenosis, R foot drop, OA, depressive symptoms, spinal stenosis and compression in lumbar region Alcohol (+): 2-3 beers daily Tobacco (-): quit over 15 years ago Allergies/ADR: LISINOPRIL (hyperkalemia) Active Outpatient Medications Status 1) ACCU-CHEK GUIDE (GLUCOSE) TEST STRIP USE 1 STRIP TO ACTIVE (S) TEST BLOOD SUGARS THREE TIMES A DAY 2) ACETAMINOPHEN 500MG TAB TAKE TWO TABLETS BY MOUTH ACTIVE THREE TIMES DAILY NEEDED FOR PAIN * previously non-VA; dose change from 500mg BID PRN 3) AMMONIUM LACTATE 12% LOTION APPLY MODERATE [...] BY MOUTH ONCE DAILY FOR VITAMIN SUPPLEMENTATION * DOSE CHANGE from once weekly 1250 mcg dosing 7) DOCUSATE NA 100MG CAP TAKE ONE [...] MOUTH AT ACTIVE BEDTIME FOR NERVE PAIN * DOSE INCREASE from 200mg 11) INSULIN SYRINGE 0.5ML 30G 12MM USE 1 SYRINGE ACTIVE SUBCUTANEOUSLY FOUR TIMES DAILY NEEDED FOR INSULIN INJECTIONS 12) INSULIN,ASPART,HUMAN 100 UNIT/ML INJ INJECT 5 UNITS ACTIVE SUBCUTANEOUSLY EVERY MORNING NEEDED AND INJECT 3 UNITS AT NOON AND INJECT 6 UNITS EVERY EVENING BEFORE SUPPER FOR DIABETES * EVENING DOSE decrease from 8 units 13) INSULIN,GLARGINE-YFGN 100UNIT/ML INJ INJECT 16 UNITS ACTIVE SUBCUTANEOUSLY ONCE DAILY FOR DIABETES * DOSE INCREASE from 14 units 14) LISINOPRIL 20MG TAB TAKE ONE TABLET BY MOUTH ONCE ACTIVE DAILY TO CONTROL BLOOD PRESSURE * DOSE INCREASE from 10mg 15) NUTR SUPL GLUCERNA THER NUTR SHAKE RICK DRINK 1 ACTIVE BOTTLE BY MOUTH ONCE DAILY Active Non-VA Medications Status 1) Non-VA ASPIRIN 81MG EC TAB 81MG BY MOUTH ONCE DAILY ACTIVE 2) Non-VA IBUPROFEN TAB 200MG BY MOUTH TWICE DAILY ACTIVE NEEDED * NEW 3) Non-VA MULTIVITAMIN/MINERALS CAP/TAB 1 TABLET BY ACTIVE MOUTH EVERY DAY THE ABOVE MEDICATIONS WERE REVIEWED FOR: ADR, potential incompatibilities, compliance, duplication of therapy, and indications on problem list Other Rx/OTC/Herbals: none identified High Alert Meds: insulin aspart, insulin glargine, empagliflozin Look Alike/Sound Alike Meds: insulin aspart AND insulin glargine, acetaminophen, atorvastatin, Neurontin Duplication of Therapy: none Excessive Duration: ?multivitamin, ?insulin aspart Vitals: ======= Ht: 69 in [175.3 cm] (08/28/2023 11:15) Wt: 152 lb [68.95 kg] (12/04/2023 11:33) BMI: 22.5 BP: 142/90 (02/25/2024 10:00) HR: 72 (02/25/2024 10:00) Pain: 6 (02/25/2024 10:00) Labs: ===== SERUM Na K BUN SCr 11/19/23 138 4.8 45 H 1.41 H 08/01/23 134 L 4.1 40 H 1.21 eGFR (CKD-EPI 2020): 48 (11/19/23) CrCl (C&G, SCr 1.41, ideal BW): ~36 mL/min Microalbumin/Cr: 112.4 H mg/G (08/15/23) Uric acid: 9.2 mg/dL (11/19/23) SERUM AST ALT 01/28/23 18 16 BLOOD WBC Hgb Hct MCV Plt 10/21/22 3.27 L 10.4 L 31.2 L 101 114 L 11/14/21 3.01 L 11.1 L 34.5 L 109.2 H 106 L A1c: 6.8 % (11/19/23) 7.3 % (08/01/23) TSH: 2.6 uIU/mL (11/19/23) Vit B12: 1100 H pg/mL (10/21/22) Folate: 14.11 ng/mL (05/12/19) Tsat: 29.3% (10/21/22) Ferritin: 227 ng/mL (10/21/22) SERUM LDL HDL TG Tot Chol 08/01/23 65 79 H 63 157 Vit D: 20 L ng/mL (12/29/23) 26 ng/mL (06/02/23) 16 L ng/mL (10/21/22) Ca: 8.9 mg/dL (12/29/23) Alb: 3.8 g/dL (01/28/23) ASSESSMENT: In the last 90 days: - No hospitalizations/infections noted. - sustained a fall in early November 2023 (please see #3 below for additional details). - Per the 11/17/23 [facility] Provider note, reports increased leg weakness. He started taking Motrin during the day and Tylenol at night for his shoulder pain with good benefit. His gabapentin dose was increased d/t neuropathy symptoms in his hands. Has mild depressive symptoms but is declining MH support and pharmacotherapy at this time. Referred to PT. - Per the 12/02/23 Endo note, plan to discharge from clinic and for to be followed by [facility] PharmD moving forward. - Per the 12/29/23 [facility] RN note, plan for MRI given pain complaints. - Per the 01/16/24 [facility] RN note, MRI was significant for spinal stenosis and compression in the lumbar region. Met with Neurosurgeon on 02/12/24. Not a candidate for surgery, but plan is for steroid injections. INTERVENTIONS/SUGGESTIONS: 1. Patient's medications were reviewed for significant drug interactions. * furosemide/lisinopril/chlort halidone: concurrent use may increase risks of hypotension * furosemide/lisinopril/chlort halidone/ibuprofen: concurrent use may lead to worsening renal function; recommend discontinuation of oral NSAIDs - could instead trial maximizing acetaminophen ( refuses topical agent) * insulin aspart/insulin glargine/empagliflozin: may increase risk of hypoglycemia; continue to encourage SMBG * aspirin/ibuprofen: concurrent use may increase bleeding risk; monitor for signs/sx and recommend discontinuation of ibuprofen - could instead trial maximizing acetaminophen ( refuses topical agent) * ibuprofen/antihypertensives: use of ibuprofen may reduce the efficacy of antihypertensive agents by increasing BPS; continue to monitor vitals and would heavily consider stopping ibuprofen use given age/renal function/current med regimen 2. Patient has reduced renal function with an estimated creatinine clearance of ~36 mL/min, therefore at risk of accumulation of renally cleared drugs. LFTs WNL. Current medications are dosed appropriately for the patient's renal and hepatic function. * ibuprofen - avoid use in patients at high risk for JOLIE (volume depletion, elderly, concurrent nephrotoxic medications) 3. Medications reviewed to determine if regimen could contribute to falls. Several agents on 's active medication list may increase fall risk including atorvastatin, chlorthalidone, empagliflozin, furosemide, gabapentin, insulin, and lisinopril. Also, aspirin and ibuprofen use may increase bleeding risk should a fall occur. Last documented fall occurred in early November 2023 when he lost his balance outside resulting in a L elbow abrasion. To reduce the risk for falls, educate [...] medication treatment. * T2DM - last A1c downtrending 7.3% --> 6.8% on insulin glargine, insulin aspart, and SGLT2 inhibitor; has a hx of neuropathy (last Podiatry visit 12/23/23), retinopathy (last Optometry visit 06/19/23), and CKD; was being followed by Endo with plan to transition to management by [facility] PharmD; may consider dose reduction of empagliflozin given labwork concerning for volume depletion/worsening renal dysfunction as well as stopping insulin aspart to simplify regimen especially given low doses at meals/hypoglycemia risk/less stringent A1c goal; not interested in CGM; is being evaluated to receive ?steroid injection for pain which may * HTN - on CORNELL-i, loop diuretic, and thiazide diuretic; lisinopril recently increased from 10mg to 20mg daily, will need to monitor closely for hyperkalemia given documented ADR, has had a hx of hyponatremia although last WNL, concern for dehydration given high BUN/SCr ratio, recent BPs have been labile possibly in the setting of NSAID use, last uric acid elevated in the setting of diuretic use - monitor for gout symptoms, recent dose increase in CORNELL-i may be beneficial by helping to minimize the diuretic-induced rise in serum urate concentration * HF - on CORNELL-i (recent dose increase), SGLT2 inhibitor, loop diuretic, and thiazide diuretic; no beta viji given hx of bradycardia (recent HRs 62-89)and Wenckebach phenomenon, not on aldosterone antagonist with hx of hyperkalemia (last K 4.8); recent labile BPs possibly in setting of NSAID use * depressive sx - declines support and pharmacotherapy at this time * anemia - CBC order pending, may be taking iron supplementation, HB RN to check during next visit 5. All medications have an appropriate indication and supporting clinical symptoms. * multivitamin - no clear indication but continues to have low vit D so reasonable to continue at this time * gabapentin - hx of peripheral neuropathy in the setting of DM, recent dose increase * atorvastatin - on high-intensity statin, hx of HLD and ASCVD, last LDL 65 and LFTs WNL * ibuprofen - using for shoulder pain; not interested in topical NSAID; recommend discontinuation with maximizing acetaminophen on a scheduled basis ( refuses topical agent) given older age, CV history, risk for volume depletion/recent worsening renal function 6. Adherence Concerns: - pill organizer prefilled by [id number] * ammonium lactate - last filled 08/06/23 7. Health Maintenance: > Immunizations: Prosperity is due for the following immunizations per chart review and CDC recommendations: * COVID-19 - has not received a dose of the [id number] formulation; pt refusal in May 2023 * Tdap - pt refusal in Feb 2024 * RSV - pt refusal in Feb 2024 * PCV20 (shared decision making) - received PCV13 on 10/03/14 - received PPSV23 on 02/10/03 > Tobacco/EtOH: * Please continue to periodically assess alcohol use and encourage gradual reduction in intake given older age, fall risk, and concern for withdrawal sx with abrupt discontinuation > Bladder/Bowel: * Inquire about incontinence and severity biannually. > Bone Health: * last vit D was low; has a current Rx for daily vit D supplementation but appears to have been put on hold without being sent a supply, was previously on once weekly high-dose supplementation but likely ran out and was not taking for the month leading up to most recent labwork * last Ca WNL, not on supplementation > Aspirin: * currently takes low-dose aspirin, hx of ASCVD 8. Patient has at least 1 refill remaining on all chronic VA Rxs. 9. Continue to review quarterly. Recommendations: - Unclear how often is taking non-VA ibuprofen, but recommend discontinuation given concern for GI bleed/CV events with chronic use in older adults as well as recent labwork significant for worsening renal function and dehydration. Would instead encourage scheduled acetaminophen use 3 times daily. Please discontinue ibuprofen from non-VA med list or alert this writer technical publications to do so if is in agreement or has already self-discontinued. - Prosperity's last vit D level was low and although cholecalciferol is on his current medication list it is on hold and does not appear that has recently received a supply. Please clarify whether he has a supply at home and whether he has been taking as instructed, especially given recent fall. Can alert this writer technical publications to unhold and mail Rx, if appropriate. - Appreciate recent labwork significant for elevated uric acid in the setting of diuretic regimen. Asymptomatic hyperuricemia is not typically recommended to be treated with urate lowering therapy. Would monitor for signs/symptoms of gout during future visits. Of note, recent dose increase of lisinopril may be beneficial as there is evidence that CORNELL-i/ARB use can minimize diuretic-induced rise in serum urate concentration. - Would consider adding ferritin, Tsat, vit B12, and folate levels to pending labwork orders given history of anemia possibly taking OTC iron supplement ([facility] RN to clarify) and significant alcohol use. The details of this review were shared with the IDT in order to assist in creating a care plan designed to provide services focused on the health and well being of the patient. Time Spent: 60 min /genoveva/ PADMA URIBE [facility] Clinical Pharmacist Practitioner Signed: 02/26/2024 11:49 Receipt Acknowledged By: 02/27/2024 08:29 /es/ Millie MEEHAN [facility] windows desktop support 02/27/2024 10:14 /es/ MARQUES JEFFERY HB NURSE PRACTITIONER for PADMA LEROY [facility]
--- OUTSIDE RECORDS SUMMARY | 2024-07-04 16:11 | XMS_ITS | Encounter Summary ---
Author Name [facility] [place] Organization [facility] [place] [place] Address [address] [place] [address] Care Team Providers Care Log Washer Name Role Phone ROBERT DAVIS Primary Care [...] O MEDEX BRONZ E Jun 06, 2001 [id number] [phone] OM[facility] PATIENT ANTHEM BCBS OF CT (BLUECARD) MEDICARE SUPPLEMEN BHARGAVI PSUED O MEDEX BRONZ E Jun 06, 2001 [id number] [place] PAT[place] SUPPLEMEN BHARGAVI MEDEX BRONZ E Jun 06, 2001 [id number] [phone] [place] SUPPLEMEN BHARGAVI PSUED O MEDEX BRONZ E Jun 06, 2001 [id number] HUDRACHEL BOYER [place] PATIENT [place] MEDIC[place] SUPPLEMEN BHARGAVI PSUED O MEDEX BRONZ E Jun 06, 2001 [id number] HUDOCK,RACHEL OMAS PATIENT MEDICARE (WNR) MEDICARE () PART A May 07, 2001 PART A [id number] HUDOCK,RACHEL OMAS PATIENT MEDICARE (WNR) MEDICARE () PART B May 07, 2001 PART B [id number] ([id number] HUDOCK,RACHEL OMAS PATIENT MEDICARE (WNR) MEDICARE () PART A May 07, 2001 PART A [id number] ([id number] HUDOCK,RACHEL OMAS PATIENT MEDICARE (WNR) MEDICARE () PART B May 07, 2001 PART B [id number] ([id number] HUDOCK,RACHEL OMAS PATIENT MEDICARE (WNR) MEDICARE () PART A May 07, 2001 PART A [id number] HUDOCK,RACHEL OMAS PATIENT MEDICARE (WNR) MEDICARE () PART B May 07, 2001 PART B [id number] HUDOCK,RACHEL OMAS PATIENT MEDICARE (WNR) MEDICARE () PART A May 07, 2001 PART A [id number] ([id number] HUDOCK,RACHEL OMAS PATIENT MEDICARE (WNR) MEDICARE () PART B May 07, 2001 PART B [id number] ([id number] HUDRACHEL BOYER [facility] PATIENT Selected Encounter This section includes the information on record at [place] for the Encounter. Date/Time Encounter Type Encounter Description Reason Provider Source Feb 25, 2024 10:00 AM MEASURE BLOOD OXYGEN LEVEL [facility] Nursing (RN / LP) ICD-10-CM M21.371 Foot drop, right foot MILLIE DAVENPORT Mallory Encounter Template Text not used by [place] Assessments - Encounter Diagnoses This section includes the primary and secondary diagnoses documented for the Encounter. Date/Time Primary/Secondary Diagnosis Diagnosis Name Provider Source Feb 25, 2024 01:08 PM PRIMARY Foot drop, right foot [facility] Feb 25, 2024 01:08 PM SECONDARY Essential (primary) hypertension MILLIE DAVENPORT [facility] Feb 25, 2024 01:08 PM SECONDARY Type 2 diabetes mellitus without complications MILLIE DAVENPORT [facility] Plan of Treatment: Future Appointments (+ 6 months) and Future Tests (+/- 45 days) The Plan of Treatment section includes future care activities for the patient from all [place] [facility] This section includes future appointments and [...] 08, 2024 08:00 AM AMBULATORY - [facility] Jul 13, 2024 11:00 AM AMBULATORY - MEDICINE [facility] Active, Pending, and Scheduled Orders This section includes a listing of several types of active, pending, and scheduled orders, including clinic medications orders, diagnostic test orders, procedure orders and consult orders; where the start date of the order is 45 days before the date of the Encounter or 45 days after the date of theEncounter. The data comes from all [facility]. Test Date/Time Test Type Test Details Facility Name Apr 07, 2024 04:04 PM Consult Order [facility] NON-SKILLED HOME HEALTH AIDE Cons Supervisor Steffen House's Choice [facility] Vital Signs: All taken on the encounter date This section contains inpatient and outpatient Vital Signs collected on the date of the Encounter. Date/Time Temperature Pulse Blood Pressure Respiratory Rate SP02 Pain Height Weight Body Mass Index Source Feb 25, 2024 10:00 AM 97.8 72 142/90 18 96 6 [facility] Social History: Smoking Status (Most [...] took place. Date/Time Current Smoking Status Comment [facility] it November 17, 2023 08:31 AM VA[facility]TOBACCO [facility] [place] [facility] Tobacco Use History This section includes a history of the smoking, or tobacco-related health factors, that were collected on or before the date of the Encounter. The data comes from the [place] facility where the Encounter took place. Date/Time Smoking Status/Tobac co Use Comment Facility November 17, 2023 08:31 AM VA-TOBACCO QUIT 15 YRS OR MORE [place] [facility] [place] [facility] May 07, 2022 09:00 AM VA-TOBACCO FORMER USER [facility] [place] [facility] May 07, 2022 09:00 AM VA-TOBACCO QUIT 15 YRS OR MORE [facility] [place] [facility] May 21, 2021 08:00 AM VA-TOBACCO FORMER USER [place] [facility] [place] [facility] May 21, 2021 08:00 AM VA-TOBACCO QUIT 15 YRS OR MORE [facility] [place] [facility] Apr 24, 2020 11:00 AM VA-TOBACCO FORMER USER [facility] [place] [facility] Apr 24, 2020 11:00 AM VA-TOBACCO QUIT 15 YRS OR MORE [facility] [place] [facility] Jan 15, 2018 10:57 AM QUIT TOBACCO USE > 7 YEARS AGO [facility] [place] [facility] Dec 10, 2016 08:53 AM QUIT TOBACCO USE > 7 YEARS AGO [place] [facility] [place] [facility] Jul 19, 2015 10:22 AM QUIT TOBACCO USE > 7 YEARS AGO Quit about 40 years ago. [place] [facility] [place] [facility] November 14, 2004 10:00 AM HISTORY OF SMOKING [place] [facility] [place] [facility] November 14, 2004 10:00 AM LIFETIME NON-SMOKER [place] [facility] [place] [facility] Oct 25, 2003 10:34 AM HISTORY OF SMOKING [place] [facility] [place] [facility] Oct 07, 2002 09:41 AM HISTORY OF SMOKING [place] [facility] [place] [facility] Nov 03, 2001 10:31 AM QUIT TOBACCO USE > 7 YEARS AGO [place] [facility] [place] [facility] Jul 31, 2001 02:15 PM NON-TOBACCO USER [facility] Advance Directives: All historical and current [...] Jul 03, 2023 ADVANCE DIRECTIVE RICHARD BAZZI [facility] Encounter Notes: All associated encounter notes This section contains the clinical notes associated to the Encounter. Date/Time Encounter Note(s) Provider Source Feb 25, 2024 01:19 PM PRIMARY CARE NOTE: LOCAL TITLE: SENT FAX/MAIL STANDARD TITLE: PRIMARY CARE NOTE DATE OF NOTE: FEB 25, 2024@13:19 ENTRY DATE: FEB 25, 2024@13:19:35 AUTHOR: MILLIE DAVENPORT EXP COSIGNER: URGENCY: STATUS: COMPLETED FAX/MAIL SENT Receipt Facilitys Name: [facility] POC Name: Fax sent on: Feb Fax Number Used(If Applicable): Mailing Address Used (If Applicable): Desc. Of Records Released (Include dates of records):requested office visit with Dr Gracia /genoveva/ Millie AMADO senior staff psychologist Signed: 02/25/2024 13:20 MILLIE DAVENPORT [facility] Feb 25, 2024 01:11 PM ADDENDUM: LOCAL TITLE: Addendum STANDARD TITLE: ADDENDUM DATE OF NOTE: FEB 25, 2024@13:11:55 ENTRY DATE: FEB 25, 2024@13:11:56 AUTHOR: MILLIE DAVENPORT EXP COSIGNER: URGENCY: STATUS: COMPLETED pLEASE RELEASE GABAPENTIN REQUESTING REFILL /eliz AMADO senior staff psychologist Signed: 02/25/2024 13:12 Receipt Acknowledged By: 02/25/2024 18:02 /genoveva/ PADMA AMADO Clinical Pharmacist Practitioner --- Original Document --- 02/25/24 [facility] RN PROGRESS NOTE: Nursing Progress Note Active and Recently Outpatient Medications (including Supplies): Active Outpatient Medications Status 1) ACCU-CHEK [...] MOUTH AT HOLD BEDTIME FOR NERVE PAIN 11) INSULIN SYRINGE 0.5ML 30G 12MM USE 1 SYRINGE ACTIVE SUBCUTANEOUSLY FOUR TIMES DAILY NEEDED FOR INSULIN INJECTIONS 12) INSULIN,ASPART,HUMAN 100 UNIT/ML INJ INJECT 5 UNITS ACTIVE SUBCUTANEOUSLY EVERY MORNING NEEDED AND INJECT 3 UNITS AT NOON AND INJECT 6 UNITS EVERY EVENING BEFORE SUPPER FOR DIABETES 13) INSULIN,GLARGINE-YFGN 100UNIT/ML INJ INJECT 16 UNITS ACTIVE SUBCUTANEOUSLY ONCE DAILY FOR DIABETES 14) LISINOPRIL 20MG TAB TAKE ONE TABLET BY MOUTH ONCE ACTIVE DAILY TO CONTROL BLOOD PRESSURE 15) NUTR SUPL GLUCERNA THER NUTR SHAKE RICK DRINK 1 ACTIVE BOTTLE BY MOUTH ONCE DAILY Active Non-VA Medications Status 1) Non-VA ASPIRIN 81MG EC TAB 81MG BY MOUTH ONCE DAILY ACTIVE 2) Non-VA MULTIVITAMIN/MINERALS CAP/TAB 1 TABLET BY ACTIVE MOUTH EVERY DAY 17 Total Medications MEDICATION REVIEW Medication review completed [...] in patient's home at time of visit. [place] identified by: Full Name, Address Length of visit in home: 30 MIN Problem addressed for this visit: DM MGT, PAIN MGT, MEDICATION MGT NURSING SUMMARY: RN visit performed in 's home for assessment of chronic disease mgt, CVCP assessment, medication reviewed with oversight, pain mgt, skin assessment, coping and home safety. Nadine is alert, oriented. In good spirits. Reports to seeing Dr Gracia for surgical evaluation. Nadine reports that he is not a surgical candidate. He was referred to [facility] for injections and is awaiting appt. Will request records from Dr Gracia office. Nadine verbalizes that he is was told by Dr Slater that she would not be following him anylonger that he would be seen at [facility]. According to Dr Slater's note on December 01 it was noted that nadine would be followed by [facility] clinical pharm. She was not alerted to the note. Will inquire. BG 227 reports to eating sweets daily. He is indep with insulin prep and administration. 7 day avg 224 14day avg 202 . No lows. declines glucose sensor. 's bp elevated. Lisinopril doseage increased to 20mg po daily. 's dtr n law prefills medications. has both bottles of Lisinopril 10mg and 20mg advised to discard the 10mg . [place] states understanding. [place] reports to be taking OTC iron supplement. He was unaware of the doseage. He reports that he purchases it at the [facility]. He did not have a bottle in the home. Will check at next visit. [place] is taking Vit b12 supplement. In pharm D note it was reccomended to trial holding Vit b12 as level was elevated. [place] informed and verbalized understanding. verbalizes chronic pain to back 7/10 with movement 2/10 when sitting. He reports to taking Advil 200mg po twice daily 2 tabs with some relief. is pending appt for injection for pain at [facility]. [place] with bilat foot drop. Not wearing sneakers today. He had on diabetic socks. Gait is unsteady. Education provided with reminding him to wear shoes at all times and to use his cane to prevent falls . [place] verbalizes understanding. has [employer] alert. DECLINES RSV AND TDAP VACCINATION AT THIS TIME Blood Pressure: 142/90 (02/25/2024 10:00) Pulse: 72 (02/25/2024 10:00) Respiration: 18 (02/25/2024 10:00) Temperature: 97.8 F [36.6 C] (02/25/2024 10:00) Pain Score: 6 (02/25/2024 10:00)see above note EXAMINATION: Lungs:CTA sats 96% denies any cough or sob Edema:trace bilat pedal edema. relieved w elevation. ppp faint hx of vascular insuff. HR:reg denies any cp or palp Bowel/Bladder:denies any issues. abd soft pos bs x 4. bm reg. Skin:CDI thickened nail beds. Home Safety lives alone. high fall risk. Has gasailsquaredian alert. son lives nearby and visits often. receives geophysical prospecting permit agent services twice a week to assist with adls. FALLS NO INFECTIONS NO ER/HOSPITALIZATIONS NO Teaching/goals:[place] has ongoing complex medical needs and benefits from [facility] interdisciplinary management. [place] and cg are included in decision making. All questions answered, education. regarding medications, disease mgt provided. [place] and caregiver verbalize understanding. [place] will be free from falls, infections, and hospitalizations over the next 30 days. Patient verbalizes understanding to above and will call with any concerns or changes in condition. For emergent care call 911. Plan for next visit:Mar 29 chronic disease mgt /es/ Millie MEEHAN [facility] senior staff psychologist Signed: 02/25/2024 13:09 Receipt Acknowledged By: * AWAITING SIGNATURE * PADMA URIBE [facility] Feb 25, 2024 12:52 PM HB NURSING NOTE: LOCAL TITLE: [facility] RN PROGRESS NOTE STANDARD TITLE: HB NURSING NOTE DATE OF NOTE: FEB 25, 2024@12:52 ENTRY DATE: FEB 25, 2024@12:52:34 AUTHOR: MILLIE DAVENPORT EXP COSIGNER: URGENCY: STATUS: COMPLETED [facility] RN PROGRESS NOTE Has ADDENDA Nursing Progress Note Active and Recently Outpatient Medications (including Supplies): Active Outpatient Medications Status 1) ACCU-CHEK [...] MOUTH AT HOLD BEDTIME FOR NERVE PAIN 11) INSULIN SYRINGE 0.5ML 30G 12MM USE 1 SYRINGE ACTIVE SUBCUTANEOUSLY FOUR TIMES DAILY NEEDED FOR INSULIN INJECTIONS 12) INSULIN,ASPART,HUMAN 100 UNIT/ML INJ INJECT 5 UNITS ACTIVE SUBCUTANEOUSLY EVERY MORNING NEEDED AND INJECT 3 UNITS AT NOON AND INJECT 6 UNITS EVERY EVENING BEFORE SUPPER FOR DIABETES 13) INSULIN,GLARGINE-YFGN 100UNIT/ML INJ INJECT 16 UNITS ACTIVE SUBCUTANEOUSLY ONCE DAILY FOR DIABETES 14) LISINOPRIL 20MG TAB TAKE ONE TABLET BY MOUTH ONCE ACTIVE DAILY TO CONTROL BLOOD PRESSURE 15) NUTR SUPL GLUCERNA THER NUTR SHAKE RICK DRINK 1 ACTIVE BOTTLE BY MOUTH ONCE DAILY Active Non-VA Medications Status 1) Non-VA ASPIRIN 81MG EC TAB 81MG BY MOUTH ONCE DAILY ACTIVE 2) Non-VA MULTIVITAMIN/MINERALS CAP/TAB 1 TABLET BY ACTIVE MOUTH EVERY DAY 17 Total Medications MEDICATION REVIEW Medication review completed [...] in patient's home at time of visit. [place] identified by: Full Name, Address Length of visit in home: 30 MIN Problem addressed for this visit: DM MGT, PAIN MGT, MEDICATION MGT NURSING SUMMARY: RN visit performed in 's home for assessment of chronic disease mgt, CVCP assessment, medication reviewed with oversight, pain mgt, skin assessment, coping and home safety. Nadine is alert, oriented. In good spirits. Reports to seeing Dr Gracia for surgical evaluation. Nadine reports that he is not a surgical candidate. He was referred to [facility] for injections and is awaiting appt. Will request records from Dr Gracia office. Nadine verbalizes that he is was told by Dr Slater that she would not be following him anylonger that he would be seen at [facility]. According to Dr Slater's note on December 01 it was noted that nadine would be followed by [facility] clinical pharm. She was not alerted to the note. Will inquire. BG 227 reports to eating sweets daily. He is indep with insulin prep and administration. 7 day avg 224 14day avg 202 . No lows. declines glucose sensor. 's bp elevated. Lisinopril doseage increased to 20mg po daily. 's dtr n law prefills medications. [place] has both bottles of Lisinopril 10mg and 20mg advised to discard the 10mg . states understanding. [place] reports to be taking OTC iron supplement. He was unaware of the doseage. He reports that he purchases it at the [employer]. He did not have a bottle in the home. Will check at next visit. [place] is taking Vit b12 supplement. In pharm D note it was reccomended to trial holding Vit b12 as level was elevated. [place] informed and verbalized understanding. verbalizes chronic pain to back 7/10 with movement 2/10 when sitting. He reports to taking Advil 200mg po twice daily 2 tabs with some relief. is pending appt for injection for pain at [facility]. [place] with bilat foot drop. Not wearing sneakers today. He had on diabetic socks. Gait is unsteady. Education provided with reminding him to wear shoes at all times and to use his cane to prevent falls . [place] verbalizes understanding. [place] has gaurdian alert. DECLINES RSV AND TDAP VACCINATION AT THIS TIME Blood Pressure: 142/90 (02/25/2024 10:00) Pulse: 72 (02/25/2024 10:00) Respiration: 18 (02/25/2024 10:00) Temperature: 97.8 F [36.6 C] (02/25/2024 10:00) Pain Score: 6 (02/25/2024 10:00)see above note EXAMINATION: Lungs:CTA sats 96% denies any cough or sob Edema:trace bilat pedal edema. relieved w elevation. ppp faint hx of vascular insuff. HR:reg denies any cp or palp Bowel/Bladder:denies any issues. abd soft pos bs x 4. bm reg. Skin:CDI thickened nail beds. Home Safety lives alone. high fall risk. Has gaurdian alert. son lives nearby and visits often. receives geophysical prospecting permit agent services twice a week to assist with adls. FALLS NO INFECTIONS NO ER/HOSPITALIZATIONS NO Teaching/goals:[place] has ongoing complex medical needs and benefits from [facility] interdisciplinary management. and cg are included in decision making. All questions answered, education. regarding medications, disease mgt provided. [place] and caregiver verbalize understanding. [place] will be free from falls, infections, and hospitalizations over the next 30 days. Patient verbalizes understanding to above and will call with any concerns or changes in condition. For emergent care call 911. Plan for next visit:Mar 29 chronic disease mgt /genoveva/ Millie MEEHAN [facility] senior staff psychologist Signed: 02/25/2024 13:09 Receipt Acknowledged By: 02/25/2024 18:04 /genoveva/ PADMA URIBE [facility] Clinical Pharmacist Practitioner 02/25/2024 ADDENDUM STATUS: COMPLETED pLEASE RELEASE GABAPENTIN REQUESTING REFILL /genoveva/ Millie AMADO senior staff psychologist Signed: 02/25/2024 13:12 Receipt Acknowledged By: 02/25/2024 18:02 /genoveva/ PADMA URIBE [facility] Clinical Pharmacist Practitioner [facility]
--- OUTSIDE RECORDS SUMMARY | 2024-07-04 16:11 | XMS_ITS | Encounter Summary ---
Author Name [facility] [place] Organization [facility] [place] Address [address] [place] [address] Care Team Providers Care Maint Mechanic Name Role Phone ROBERT DAVIS Primary Care Provider Unav ailable RICHRAD BAZZI Unavailable Unavailable CASSANDRA FERRELL Unavailable Unavailable KELESA JO Unavailable Unavailable MONSE DUBON Unavailable Unavailable [...] O MEDEX BRONZ E Jun 06, 2001 [id number] [phone] [facility] PATIENT ANTHEM BCBS OF [place] (BLUECARD) MEDICARE SUPPLEMEN BHARGAVI PSUED O MEDEX BRONZ E Jun 06, 2001 [id number] [phone] [facility] PATIENT BCBS [place] MEDICARE SUPPLEMEN BHARGAVI MEDEX BRONZ E Jun 06, 2001 [id number] [place] PATIENT [place] MED[place] SUPPLEMEN BHARGAVI PSUED O MEDEX BRONZ E Jun 06, 2001 [id number] HUDRACHEL BOYER [place] PATIENT [place] MEDICARE SUPPLEMEN BHARGAVI PSUED O MEDEX BRONZ E Jun 06, 2001 [id number] HUDMERLIN,RACHEL OMAS PATIENT MEDICARE (WNR) MEDICARE (M) PART A May 07, 2001 PART A [id number] HUDOCK,RACHEL OM[facility] PATIENT MEDICARE (WNR) MEDICARE (M) PART B May 07, 2001 PART B [id number] ([id number] HUDOCK,RACHEL OMAS PATIENT MEDICARE (WNR) MEDICARE (M) PART A May 07, 2001 PART A [id number] ([id number] HUDOCK,RACHEL OMAS PATIENT MEDICARE (WNR) MEDICARE (M) PART B May 07, 2001 PART B [id number] HUDMERLIN,RACHEL OMAS PATIENT MEDICARE (WNR) MEDICARE (M) PART A May 07, 2001 PART A [id number] HUDMERLIN,RACHEL OMAS PATIENT MEDICARE (WNR) MEDICARE (M) PART B May 07, 2001 PART B [id number] HUDMERLIN,RACHEL OMAS PATIENT MEDICARE (WNR) MEDICARE (M) PART A May 07, 2001 PART A [id number] HUDMERLIN,RACHEL OMAS PATIENT MEDICARE (WNR) MEDICARE (M) PART B May 07, 2001 PART B [id number] ([id number] HUDRACHEL BOYER [facility] PATIENT Selected Encounter This section includes the information on record at [place] for the Encounter. Date/Time Encounter Type Encounter Description Reason Provider Source Apr 21, 2024 08:56 AM QNHP OL DIG ASSMT&MGMT 21+ PC - CLINICAL PHARMACIST ICD-10-CM Z79.899 Other manager terminal (current) drug therapy PADMA URIBE Encounter Template Text not used by [facility] Assessments - Encounter Diagnoses This section includes the primary and secondary diagnoses documented for the Encounter. Date/Time Primary/Secondary Diagnosis Diagnosis Name Provider Source Apr 21, 2024 11:03 AM PRIMARY Other fdc (current) drug therapy PADMA URIBE [facility] Plan of Treatment: Future Appointments (+ 6 months) and Future Tests (+/- 45 days) The Plan of Treatment section includes future care activities for the patient from [facility] [place] [facility] This section includes future appointments and future orders which are active, pending or scheduled. Future Appointments This section includes appointments that were scheduled to occur 6 months from the date of the Encounter, up to a maximum of 20 appointments. The data comes from all [facility] facilities. Appointment Date/Time Appointment Type Appointme nt Facility Name May 08, 2024 08:00 AM AMBULATORY - MEDICINE [facility] Jul 13, 2024 11:00 AM AMBULATORY MEDICINE [facility] Oct 07, 2024 11:00 AM AMBULATORY MEDICINE [facility] Active, Pending, and Scheduled Orders This section includes a listing of several types of active, pending, and scheduled orders, including clinic medications orders, diagnostic test orders, procedure orders and consult orders; where the start date of the order is 45 days before the date of the Encounter or 45 days after the date of theEncounter. The data comes from all [facility]. Test Date/Time Test Type Test Details Facility Name Apr 07, 2024 04:04 PM Consult Order [facility] NON-SKILLED HOME HEALTH AIDE Cons Duplicating Machine Operator's Choice [facility] Lab Results: +/- 30 days of the encounter This section includes the Chemistry and Hematology Lab Results on record with [place] for the patient. Radiology Reports and Pathology Reports are provided separately, in subsequent sections. Lab Results This section contains the Chemistry/Hematology Results that were resulted 30 days before or 30 daysafter the date of the Encounter. Date/Time Source Result Type Result - Unit Interpretation Reference Range Comment Mar 29, 2024 12:00 PM [facility] VITAMIN D (25-OH) Specimen Type: SERUM No comment entered. Ordering Provider: MARQUES JEFFERY Report Released Date/Time: Mar 29, 2024 02:13 PM Reporting Lab: [address] [address] Performing Lab: [facility] [address] [facility] [address] VITAMIN D (25-OH) 17 ng/mL L 20-50 Mar 29, 2024 12:00 PM [facility] IRON & TIBC PANEL Specimen Type: SERUM No comment entered. Ordering Provider: Crispin DAVIS Report Released Date/Time: Mar 30, 2024 12:26 PM Reporting Lab: [facility] [address] [facility] [address] Performing Lab: [facility] [address] [facility] [address] TIBC 279 ug/dL 204-475 IRON 114 ug/dL 40-160 Transferrin Saturation 40.9 20.0-50.0 Transferrin (TRF) 211 mg/dL 200-360 Mar 29, 2024 12:00 PM [facility] HEMOGLOBIN A1C PANEL Specimen Type: BLOOD Comment: [...] Feb 03, 2024 09:47 AM Reporting Lab: [facility] [address] [facility] [address] Performing Lab: [address] [address] HEMOGLOBIN A1C 7.7 H 4.0-5.6 Mar 29, 2024 12:00 PM [facility] MICROALBUMIN CREATININE RATIO PANEL Specimen Type: URINE No comment entered. Ordering Provider: Crispin DAVIS Report Released Date/Time: Feb 03, 2024 09:47 AM Reporting Lab: [facility] [address] [facility] [address] Performing Lab: [facility] [address] [facility] [address] MICROALBUMIN/C REATININE RATIO 121.4 mg/g H 0-29.9 MICROALBUMIN,Q UANTITATIVE 1.5 mg/dL RR UNAVAIL CREATININE URINE 12.36 mg/dL Mar 29, 2024 12:00 PM [facility] URIC ACID Specimen Type: SERUM No comment entered. Ordering Provider: Crispin DAVIS Report Released Date/Time: Feb 03, 2024 09:47 AM Reporting Lab: [facility] [address] [facility] [address] Performing Lab: [address] [address] URIC ACID 9.9 mg/dL H 3.5-7.2 Mar 29, 2024 12:00 PM [facility] BASIC METABOLIC PANEL (non-fasting) Specimen Type: SERUM No comment entered. Ordering Provider: Crispin DAVIS Report Released Date/Time: Feb 03, 2024 09:47 AM Reporting Lab: [facility] [address] [facility] [address] Performing Lab: [address] [address] UREA NITROGEN 43 mg/dL H 7-25 GLUCOSE 290 mg/dL H 65-100 SODIUM 135 mmol/L 135-145 POTASSIUM 4.5 mmol/L 3.5-5.0 CHLORIDE 100 mmol/L 100-110 CO2 28 meq/L 20-30 CREATININE, Serum 1.35 mg/dL 0.50-1.40 eGFR(CKD-EPI 2020) 50 mL/min L >60 Mar 29, 2024 12:00 PM [facility] CBC AND DIFF (AUTO) Specimen Type: BLOOD No comment entered. Ordering Provider: Crispin DAVIS Report Released Date/Time: Feb 03, 2024 09:47 AM Reporting Lab: [address] [address] Performing Lab: [address] [place] [address] WBC 3.88 10*3/uL L 4.50-11.00 RBC 2.94 [...] and tobacco- related health factors from the [place] facility where the Encounter took place. Current Smoking Status This section includes the most current smoking, or tobacco-related health factor, from the [place] facility where the Encounter took place. Date/Time Current Smoking Status Comment Facil ity November 17, 2023 08:31 AM VA-TOBACCO FORMER USER [place] [facility] Tobacco Use History This section includes a history of the smoking, or tobacco-related health factors, that were collected on or before the date of the Encounter. The data comes from the [place] facility where the Encounter took place. Date/Time Smoking Status/Tobac co Use Comment Facility November 17, 2023 08:31 AM VA-TOBACCO QUIT 15 YRS OR MORE [facility] May 07, 2022 09:00 AM VA-TOBACCO FORMER USER [facility] May 07, 2022 09:00 AM VA-TOBACCO QUIT 15 YRS OR MORE [facility] May 21, 2021 08:00 AM VA-TOBACCO FORMER USER [facility] May 21, 2021 08:00 AM VA-TOBACCO QUIT 15 YRS OR MORE [facility] Apr 24, 2020 11:00 AM VA-TOBACCO FORMER USER [facility] Apr 24, 2020 11:00 AM VA-TOBACCO QUIT 15 YRS OR MORE [facility] Jan 15, 2018 10:57 AM QUIT TOBACCO USE > 7 YEARS AGO [facility] Dec 10, 2016 08:53 AM QUIT TOBACCO USE > 7 YEARS AGO [facility] Jul 19, 2015 10:22 AM QUIT TOBACCO USE > 7 YEARS AGO Quit about 40 years ago. [facility] November 14, 2004 10:00 AM HISTORY OF SMOKING [facility] November 14, 2004 10:00 AM LIFETIME NON-SMOKER [facility] Oct 25, 2003 10:34 AM HISTORY OF SMOKING [facility] Oct 07, 2002 09:41 AM HISTORY OF SMOKING [facility] Nov 03, 2001 10:31 AM QUIT TOBACCO USE > 7 YEARS AGO [facility] Jul 31, 2001 02:15 PM NON-TOBACCO USER Quit 20 yrs ago [facility] Advance Directives: All historical and current Section Date Range: From patient's date of to the date document was created. This section includes ALL of a patient's completed or amended VA Advance and Rescinded Directives. The entries below indicate that a directive exists for the patient, but an actual copy is not included with this document. The data comes from all [place] facilities. Date Advance Directives Provider Source Jul 03, 2023 ADVANCE DIRECTIVE RICHARD BAZZI [place] [facility] Encounter Notes: All associated encounter notes This section contains the clinical notes associated to the Encounter. Date/Time Encounter Note(s) Provider Source Apr 21, 2024 02:05 PM ADDENDUM: LOCAL TITLE: Addendum STANDARD TITLE: ADDENDUM DATE OF NOTE: APR 21, 2024@14:05:57 ENTRY DATE: APR 21, 2024@14:05:58 AUTHOR: DARSHAN OLIVERA EXP COSIGNER: URGENCY: STATUS: COMPLETED unable to release pcp hold requested pharmacy to release and mail will defer Med reconiciliation and adherence concerns to KAREN /genoveva/ DARSHAN OLIVERA LITHOPRESS OPERATOR-C [facility] NURSE PRACTITIONER Signed: 04/21/2024 14:06 Receipt Acknowledged By: 04/21/2024 14:41 /genoveva/ PADMA URIBE [facility] Clinical Pharmacist Practitioner 04/21/2024 15:40 /genoveva/ Millie Davenport BSN [facility] environmental officer --- Original Document --- 04/21/24 [facility] MEDICATION REVIEW: Gonzalo Vega is an 88 year-old WHITE MALE. PMH [...] AT ACTIVE BEDTIME FOR NERVE PAIN 11) INSULIN SYRINGE [...] Non-VA FERROUS SULFATE TAB 28MG BY MOUTH TWICE A WEEK ACTIVE NEEDED * NEW 3) Non-VA MULTIVITAMIN/MINERALS CAP/TAB 1 TABLET BY ACTIVE MOUTH EVERY DAY Since last review, ibuprofen was discontinued. THE ABOVE MEDICATIONS WERE REVIEWED FOR: ADR, potential incompatibilities, compliance, duplication of therapy, and indications on problem list Other Rx/OTC/Herbals: none identified High Alert Meds: insulin aspart, insulin glargine, empagliflozin Look Alike/Sound Alike Meds: insulin aspart AND insulin glargine, acetaminophen, atorvastatin, Neurontin Duplication of Therapy: none Excessive Duration: ?multivitamin, ?insulin aspart, ?ferrous sulfate Vitals: ======= Ht: 69 in [175.3 cm] (08/28/2023 11:15) Wt: 152 lb [68.95 kg] (12/04/2023 11:33) BMI: 22.5 BP: 130/90 (04/12/2024 13:34) HR: 64 (04/12/2024 13:34) Pain: 7 (04/12/2024 13:34) Labs: ===== SERUM Na K BUN SCr 03/29/24 135 4.5 43 H 1.35 11/19/23 138 4.8 45 H 1.41 H 08/01/23 134 L 4.1 40 H 1.21 eGFR (CKD-EPI 2020): 50 (03/29/24) CrCl (C&G, SCr 1.35, ideal BW): ~38 mL/min Microalbumin/Cr: 121.4 H mg/G (03/29/24) Uric acid: 9.9 H mg/dL (03/29/24) 9.2 mg/dL (11/19/23) SERUM AST ALT 01/28/23 18 16 BLOOD WBC Hgb Hct MCV Plt 03/29/24 3.88 L 10.5 L 32 L 108.8 H 104 L 10/21/22 3.27 L 10.4 L 31.2 L 101 114 L 11/14/21 3.01 L 11.1 L 34.5 L 109.2 H 106 L A1c: 7.7 % (03/29/24) 6.8 % (11/19/23) 7.3 % (08/01/23) TSH: 2.6 uIU/mL (11/19/23) Vit B12: 1100 H pg/mL (10/21/22) Folate: 14.11 ng/mL (05/12/19) Tsat: 29.3% (10/21/22) Tsat: 40.9 % (03/29/24) SERUM LDL HDL TG Tot Chol 08/01/23 65 79 H 63 157 Vit D: 17 L ng/mL (03/29/24) 20 L ng/mL (12/29/23) Ca: 8.9 mg/dL (12/29/23) Alb: 3.8 g/dL (01/28/23) ASSESSMENT: In the last 90 days: - No hospitalizations/infections noted - sustained a fall ~03/15/24 (see #3 below for addtional info). - Per the 03/29/24 [facility] R note, is taking iron supplementation and has not been taking vit D supplementation. - Per the 04/12/24 [facility] CROWD CONTROLLER note, plan to resume daily vit D supplementation and change iron supplementation to 2 times weekly. agreeable to speaking with [facility] RD to receive ducation about how to adjust his diet in an effort to reduce his uric acid. INTERVENTIONS/SUGGESTIONS: 1. Patient's medications were reviewed for significant drug interactions. * furosemide/lisinopril/chlortha lidone: concurrent use may increase risks of hypotension * furosemide/lisinopril/chlortha lidone: concurrent use may lead to worsening renal function; continue to monitor Chem 7 * insulin aspart/insulin glargine/empagliflozin: may increase risk of hypoglycemia; continue to encourage SMBG 2. Patient has reduced renal function with an estimated creatinine clearance of ~38 mL/min, therefore at risk of accumulation of [...] a fall occur. Last documented fall occurred ~03/15/24; lost his balance stepping into the living room without his assistive device without injury. To reduce the risk for falls, educate [...] medication treatment. * T2DM - last A1c uptrending 6.8% --> 7.7% on insulin glargine, insulin aspart, and SGLT2 inhibitor; has a hx of neuropathy (last Podiatry visit 12/23/23), retinopathy (last Optometry visit 06/19/23), and CKD; may consider dose reduction of empagliflozin given labwork concerning for volume depletion; would consider stopping insulin aspart to simplify regimen especially given low doses at meals/less stringent A1c goal - can consider increasing insulin glargine dose slightly as needed after confirming adherence to current regimen; not interested in CGM; plan for to receive CSI for pain which may lead to labile blood sugars * HTN - has active Rxs for CORNELL-i, loop diuretic, and thiazide diuretic but may not be taking lisinopril or hydrochlorothiazide based on med refill history; lisinopril previously increased from 10mg to 20mg daily - will need to monitor closely for hyperkalemia given documented ADR (last K WNL), has had a hx of hyponatremia with last level on the lower end of normal, concern for dehydration given high BUN/SCr ratio, recent BPs have been mostly elevated with SBPs in 140s, last uric acid elevated in the setting of diuretic use - monitor for gout symptoms * HF - on CORNELL-i (unclear if is taking), SGLT2 inhibitor, loop diuretic, and thiazide diuretic (unclear if is taking); no beta viji given 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 All medications have an appropriate indication and supporting clinical symptoms. * multivitamin - no clear indication but continues to have low vit D so reasonable to continue at this time * gabapentin - hx of peripheral neuropathy in the setting of DM, documented benefit with current dosing * atorvastatin - on high-intensity statin, hx of HLD and ASCVD, last LDL 65 and LFTs WNL 6. Adherence Concerns: - pt refusal in Feb 2024 * lisinopril - last filled 11/05/23 (90-day supply) * chlorthalidone - last filled 12/05/23 (90-day supply) * ammonium lactate - last filled 08/06/23 7. Health Maintenance: > Immunizations: Nadine is due for the following immunizations per chart review and CDC recommendations: * COVID-19 * Tdap - pt refusal in Feb 2024 * RSV - pt refusal in Mar 2024 * PCV20 (shared decision making) - [...] Rx for daily vit D supplementation but last labwork not reflective adherence to supplementation * last Ca WNL, not on supplementation > Aspirin: * currently takes low-dose aspirin, hx of ASCVD 8. Patient has at least 1 refill remaining of all chronic VA Rxs. 9. Continue to review quarterly. Recommendations: - 's last vit D level was low and reported he was no longer taking vit D supplementation because someone told him to stop. Would ensure he resumes taking as recently recommended by [facility] PCP given recent labwork significant for deficiency and recent history of falls. Of note, nadine's Rx is currently on hold. If he requires a new supply will need to alert the outpatient pharmacy. - Nadine is not up-to-date with his lisinopril or chlorthalidone refills suggesting inconsistent adherence versus nonadherence, and his recent BPs are mostly elevated with SBPs in the 140s. Please assess how nadine has been taking and alert IDT to any discrepancies, if applicable. * lisinopril - last filled 11/05/23 (90-day supply) * chlorthalidone - last filled 12/05/23 (90-day supply) - Please assess how nadine has been taking his insulin and if he forgets to give any of his 4 injections a day of insulin at times, and alert this investment underwriter. Will consider discontinuation of low-dickinson insulin aspart with possible dose increase of insulin glargine, as appropriate. - Please take photos of 's OTC iron supplement including supplemental information and send to this investment underwriter for review. - Please assess 's willingness to receive the updated COVID-19 vaccine during next scheduled visit. No documented refusal per chart review The details of this review were shared with the IDT in order to assist in creating a care plan designed to provide services focused on the health and well being of the patient. Time Spent: 45 min /es/ PADMA URIBE [facility] Clinical Pharmacist Practitioner Signed: 04/21/2024 11:04 Receipt Acknowledged By: * AWAITING SIGNATURE * MILLIE DAVENPORT 04/21/2024 14:05 /genoveva/ DARSHAN OLIVERA LITHOPRESS OPERATOR-C [facility] NURSE PRACTITIONER for ROBERT DARSHAN RAPHAEL [facility] [place] Apr 21, 2024 08:56 AM [facility] MEDICATION MGT NOTE: LOCAL TITLE: [facility] PHARMACY MEDICATION REVIEW STANDARD TITLE: [facility] MEDICATION MGT NOTE DATE OF NOTE: APR 21, 2024@08:56 ENTRY DATE: APR 21, 2024@08:56:25 AUTHOR: PADMA URIBE EXP COSIGNER: URGENCY: STATUS: COMPLETED [facility] MEDICATION REVIEW Has ADDENDA Gonzalo Vega is an 88 year-old WHITE MALE. PMH [...] AT ACTIVE BEDTIME FOR NERVE PAIN 11) INSULIN SYRINGE [...] Non-VA FERROUS SULFATE TAB 28MG BY MOUTH TWICE A WEEK ACTIVE NEEDED * NEW 3) Non-VA MULTIVITAMIN/MINERALS CAP/TAB 1 TABLET BY ACTIVE MOUTH EVERY DAY Since last review, ibuprofen was discontinued. THE ABOVE MEDICATIONS WERE REVIEWED FOR: ADR, potential incompatibilities, compliance, duplication of therapy, and indications on problem list Other Rx/OTC/Herbals: none identified High Alert Meds: insulin aspart, insulin glargine, empagliflozin Look Alike/Sound Alike Meds: insulin aspart AND insulin glargine, acetaminophen, atorvastatin, Neurontin Duplication of Therapy: none Excessive Duration: ?multivitamin, ?insulin aspart, ?ferrous sulfate Vitals: ======= Ht: 69 in [175.3 cm] (08/28/2023 11:15) Wt: 152 lb [68.95 kg] (12/04/2023 11:33) BMI: 22.5 BP: 130/90 (04/12/2024 13:34) HR: 64 (04/12/2024 13:34) Pain: 7 (04/12/2024 13:34) Labs: ===== SERUM Na K BUN SCr 03/29/24 135 4.5 43 H 1.35 11/19/23 138 4.8 45 H 1.41 H 08/01/23 134 L 4.1 40 H 1.21 eGFR (CKD-EPI 2020): 50 (03/29/24) CrCl (C&G, SCr 1.35, ideal BW): ~38 mL/min Microalbumin/Cr: 121.4 H mg/G (03/29/24) Uric acid: 9.9 H mg/dL (03/29/24) 9.2 mg/dL (11/19/23) SERUM AST ALT 01/28/23 18 16 BLOOD WBC Hgb Hct MCV Plt 03/29/24 3.88 L 10.5 L 32 L 108.8 H 104 L 10/21/22 3.27 L 10.4 L 31.2 L 101 114 L 11/14/21 3.01 L 11.1 L 34.5 L 109.2 H 106 L A1c: 7.7 % (03/29/24) 6.8 % (11/19/23) 7.3 % (08/01/23) TSH: 2.6 uIU/mL (11/19/23) Vit B12: 1100 H pg/mL (10/21/22) Folate: 14.11 ng/mL (05/12/19) Tsat: 29.3% (10/21/22) Tsat: 40.9 % (03/29/24) SERUM LDL HDL TG Tot Chol 08/01/23 65 79 H 63 157 Vit D: 17 L ng/mL (03/29/24) 20 L ng/mL (12/29/23) Ca: 8.9 mg/dL (12/29/23) Alb: 3.8 g/dL (01/28/23) ASSESSMENT: In the last 90 days: - No hospitalizations/infections noted - [place] sustained a fall ~03/15/24 (see #3 below for addtional info). - Per the 03/29/24 HB R note, is taking iron supplementation and has not been taking vit D supplementation. - Per the 04/12/24 [facility] CROWD CONTROLLER note, plan to resume daily vit D supplementation and change iron supplementation to 2 times weekly. agreeable to speaking with [facility] RD to receive ducation about how to adjust his diet in an effort to reduce his uric acid. INTERVENTIONS/SUGGESTIONS: 1. Patient's medications were reviewed for significant drug interactions. * furosemide/lisinopril/chlortha lidone: concurrent use may increase risks of hypotension * furosemide/lisinopril/chlortha lidone: concurrent use may lead to worsening renal function; continue to monitor Chem 7 * insulin aspart/insulin glargine/empagliflozin: may increase risk of hypoglycemia; continue to encourage SMBG 2. Patient has reduced renal function with an estimated creatinine clearance of ~38 mL/min, therefore at risk of accumulation of [...] a fall occur. Last documented fall occurred ~03/15/24; lost his balance stepping into the living room without his assistive device without injury. To reduce the risk for falls, educate [...] medication treatment. * T2DM - last A1c uptrending 6.8% --> 7.7% on insulin glargine, insulin aspart, and SGLT2 inhibitor; has a hx of neuropathy (last Podiatry visit 12/23/23), retinopathy (last Optometry visit 06/19/23), and CKD; may consider dose reduction of empagliflozin given labwork concerning for volume depletion; would consider stopping insulin aspart to simplify regimen especially given low doses at meals/less stringent A1c goal - can consider increasing insulin glargine dose slightly as needed after confirming adherence to current regimen; not interested in CGM; plan for to receive CSI for pain which may lead to labile blood sugars * HTN - has active Rxs for CORNELL-i, loop diuretic, and thiazide diuretic but may not be taking lisinopril or hydrochlorothiazide based on med refill history; lisinopril previously increased from 10mg to 20mg daily - will need to monitor closely for hyperkalemia given documented ADR (last K WNL), has had a hx of hyponatremia with last level on the lower end of normal, concern for dehydration given high BUN/SCr ratio, recent BPs have been mostly elevated with SBPs in 140s, last uric acid elevated in the setting of diuretic use - monitor for gout symptoms * HF - on CORNELL-i (unclear if is taking), SGLT2 inhibitor, loop diuretic, and thiazide diuretic (unclear if is taking); no beta viji given 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 All medications have an appropriate indication and supporting clinical symptoms. * multivitamin - no clear indication but continues to have low vit D so reasonable to continue at this time * gabapentin - hx of peripheral neuropathy in the setting of DM, documented benefit with current dosing * atorvastatin - on high-intensity statin, hx of HLD and ASCVD, last LDL 65 and LFTs WNL 6. Adherence Concerns: - pt refusal in Feb 2024 * lisinopril - last filled 11/05/23 (90-day supply) * chlorthalidone - last filled 12/05/23 (90-day supply) * ammonium lactate - last filled 08/06/23 7. Health Maintenance: > Immunizations: Nadine is due for the following immunizations per chart review and CDC recommendations: * COVID-19 * Tdap - pt refusal in Feb 2024 * RSV - pt refusal in Mar 2024 * PCV20 (shared decision making) - [...] Rx for daily vit D supplementation but last labwork not reflective adherence to supplementation * last Ca WNL, not on supplementation > Aspirin: * currently takes low-dose aspirin, hx of ASCVD 8. Patient has at least 1 refill remaining of all chronic [facility] Rxs. 9. Continue to review quarterly. Recommendations: - Nadine's last vit D level was low and reported he was no longer taking vit D supplementation because someone told him to stop. Would ensure he resumes taking as recently recommended by [facility] PCP given recent labwork significant for deficiency and recent history of falls. Of note, nadine's Rx is currently on hold. If he requires a new supply will need to alert the outpatient pharmacy. - Nadine is not up-to-date with his lisinopril or chlorthalidone refills suggesting inconsistent adherence versus nonadherence, and his recent BPs are mostly elevated with SBPs in the 140s. Please assess how nadine has been taking and alert IDT to any discrepancies, if applicable. * lisinopril - last filled 11/05/23 (90-day supply) * chlorthalidone - last filled 12/05/23 (90-day supply) - Please assess how nadine has been taking his insulin and if he forgets to give any of his 4 injections a day of insulin at times, and alert this investment underwriter. Will consider discontinuation of low-dickinson insulin aspart with possible dose increase of insulin glargine, as appropriate. - Please take photos of nadine's OTC iron supplement including supplemental information and send to this investment underwriter for review. - Please assess 's willingness to receive the updated COVID-19 vaccine during next scheduled visit. No documented refusal per chart review The details of this review were shared with the IDT in order to assist in creating a care plan designed to provide services focused on the health and well being of the patient. Time Spent: 45 min /genoveva/ PADMA URIBE [facility] Clinical Pharmacist Practitioner Signed: 04/21/2024 11:04 Receipt Acknowledged By: 04/21/2024 15:41 /eliz MEEHAN HB environmental officer 04/21/2024 14:05 /genoveva/ DARSHAN TABOR-Crispin HB NURSE PRACTITIONER for ROBERT DAVIS 04/21/2024 ADDENDUM STATUS: COMPLETED unable to release pcp hold requested pharmacy to release and mail will defer Med reconiciliation and adherence concerns to KAREN /genoveva/ DARSHAN PRYOR HB NURSE PRACTITIONER Signed: 04/21/2024 14:06 Receipt Acknowledged By: 04/21/2024 14:41 /genoveva/ PADMA URIBE [facility] Clinical Pharmacist Practitioner 04/21/2024 15:40 /eliz MEEHAN HB environmental officer PADMA URIBE [place] [facility] TRElizabeth [facility]
--- OUTSIDE RECORDS SUMMARY | 2024-07-04 16:11 | XMS_ITS ---
Author Name [facility] [place] Organization [facility] [place] Address [address] [place] [id number] Care Team Providers Care Cage Unloader Name Role Phone ROBERT DAVIS Primary Care [...] O MEDEX BRONZ E Jun 06, 2001 [id number] [phone] OMAS PATIENT ANTHEM BCBS OF [place] (BLUECARD) MEDICARE SUPPLEMEN BHARGAVI PSUED O MEDEX BRONZ E Jun 06, 2001 [id number] [phone] [place] PAT[place] SUPPLEMEN BHARGAVI MEDEX BRONZ E Jun 06, 2001 [id number] [place] PAT[place] SUPPLEMEN BHARGAVI PSUED O MEDEX BRONZ E Jun 06, 2001 [id number] [phone] HUDOCK,RACHEL OMAS PATIENT [place] MEDIC[place] SUPPLEMEN BHARGAVI PSUED O MEDEX BRONZ E Jun 06, 2001 [id number] HUDOCK,TH OMAS PATIENT MEDICARE (WNR) MEDICARE (M) PART A May 07, 2001 PART A [id number] HUDOCK,TH OMAS PATIENT MEDICARE (WNR) MEDICARE (M) PART B May 07, 2001 PART B [id number] ([id number] HUDOCK,RACHEL OMAS PATIENT MEDICARE (WNR) MEDICARE (M) PART A May 07, 2001 PART A [id number] ([id number] HUDOCK,RACHEL OMAS PATIENT MEDICARE (WNR) MEDICARE () PART B May 07, 2001 PART B [id number] ([id number] HUDOCK,RACHEL OMAS PATIENT MEDICARE (WNR) MEDICARE () PART A May 07, 2001 PART A [id number] HUDOCK,RACHEL OMAS PATIENT MEDICARE (WNR) MEDICARE (M) PART B May 07, 2001 PART B [id number] HUDOCK,RACHEL OMAS PATIENT MEDICARE (WNR) MEDICARE () PART A May 07, 2001 PART A [id number] ([id number] HUDOCK,RACHEL OMAS PATIENT MEDICARE (WNR) MEDICARE () PART B May 07, 2001 PART B [id number] ([id number] HUDOCK,RACHEL OMAS PATIENT Selected Encounter This section includes the information on record at [place] for the Encounter. Date/Time Encounter Type Encounter Description Reason Provider Source Mar 29, 2024 11:00 AM SELF CARE MNGMENT TRAINING [facility] Nursing (RN / LP) ICD-10-CM M21.371 Foot drop, right foot MILLIE DAVENPORT Mallory Encounter Template Text not used by [place] Assessments - Encounter Diagnoses This section includes the primary and secondary diagnoses documented for the Encounter. Date/Time Primary/Secondary Diagnosis Diagnosis Name Provider Source Mar 29, 2024 02:42 PM PRIMARY Foot drop, right foot MILLIE DAVENPORT [facility] Mar 29, 2024 02:42 PM SECONDARY Encounter for immunization MILLIE DAVENPORT [facility] Mar 29, 2024 02:42 PM SECONDARY Other chronic pain [facility]ENPORT [facility] Mar 29, 2024 02:42 PM SECONDARY Type 2 diabetes mellitus without complications MILLIE DAVENPORT 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 This section includes future appointments and future orders which are active, pending or scheduled. Future Appointments This section includes appointments that were scheduled to occur 6 months from the date of the Encounter, up to a maximum of 20 appointments. The data comes from all [facility]. Appointment Date/Time Appointment Type Appointme nt Facility Name May 08, 2024 08:00 AM AMBULAT[facility] - [facility]ICINE [facility] Jul 13, 2024 11:00 AM AMBULATORY MEDICINE [facility] Active, Pending, and Scheduled Orders This section includes a listing of several types of active, pending, and scheduled orders, including clinic medications orders, diagnostic test orders, procedure orders and consult orders; where the start date of the order is 45 days before the date of the Encounter or 45 days after the date of theEncounter. The data comes from all [facility]. Test Date/Time Test Type Test Details Facility Name Apr 07, 2024 04:04 PM Consult Order [facility] NON-SKILLED HOME HEALTH AIDE Cons Bus Attendant's Choice [facility] Lab Results: +/- 30 days [...] Range Comment Mar 29, 2024 12:00 PM [facility] VITAMIN D (25-OH) Specimen Type: SERUM No comment entered. Ordering Provider: MARQUES JEFFERY Report Released Date/Time: Mar 29, 2024 02:13 PM Reporting Lab: [facility] [address] [facility] [address] Performing Lab: [address] [address] VITAMIN D (25-OH) 17 ng/mL L 20-50 Mar 29, 2024 12:00 PM [facility] IRON & TIBC PANEL Specimen Type: SERUM No comment entered. Ordering Provider: Crispin DAVIS Report Released Date/Time: Mar 30, 2024 12:26 PM Reporting Lab: [address] [address] Performing Lab: [address] [address] TIBC 279 ug/dL 204-475 IRON 114 ug/dL 40-160 Transferrin Saturation 40.9 20.0-50.0 Transferrin (TRF) 211 mg/dL 200-360 Mar 29, 2024 12:00 PM [facility] HEMOGLOBIN A1C PANEL Specimen Type: [...] Feb 03, 2024 09:47 AM Reporting Lab: [address] [address] Performing Lab: [address] [address] HEMOGLOBIN A1C 7.7 H 4.0-5.6 Mar 29, 2024 12:00 PM [facility] MICROALBUMIN CREATININE RATIO PANEL Specimen Type: URINE No comment entered. Ordering Provider: Crispin DAVIS Report Released Date/Time: Feb 03, 2024 09:47 AM Reporting Lab: [facility] [address] [address] Performing Lab: [facility] [address] [facility] [address] MICROALBUMIN/C REATININE RATIO 121.4 mg/g H 0-29.9 MICROALBUMIN,Q UANTITATIVE 1.5 mg/dL RR UNAVAIL CREATININE URINE 12.36 mg/dL Mar 29, 2024 12:00 PM [facility] URIC ACID Specimen Type: SERUM No comment entered. Ordering Provider: Crispin DAVIS Report Released Date/Time: Feb 03, 2024 09:47 AM Reporting Lab: [facility] [address] [address] Performing Lab: [facility] [address] [facility] [address] URIC ACID 9.9 mg/dL H 3.5-7.2 Mar 29, 2024 12:00 PM [facility] BASIC METABOLIC PANEL (non-fasting) Specimen Type: SERUM No comment entered. Ordering Provider: Crispin DAVIS Report Released Date/Time: Feb 03, 2024 09:47 AM Reporting Lab: [facility] [address] [facility] [address] Performing Lab: [address] [address] UREA NITROGEN 43 mg/dL H 7-25 GLUCOSE 290 mg/dL H 65-100 SODIUM 135 mmol/L 135-145 POTASSIUM 4.5 mmol/L 3.5-5.0 CHLORIDE 100 mmol/L 100-110 CO2 28 meq/L 20-30 CREATININE, Serum 1.35 mg/dL 0.50-1.40 eGFR(CKD-EPI 2020) 50 mL/min L >60 Mar 29, 2024 12:00 PM [facility] CBC AND DIFF (AUTO) Specimen Type: BLOOD No comment entered. Ordering Provider: Crispin DAVIS Report Released Date/Time: Feb 03, 2024 09:47 AM Reporting Lab: [facility] [address] [address] Performing Lab: [facility] [address] [facility] [address] WBC 3.88 10*3/uL L 4.50-11.00 RBC 2.94 [...] Pain Height Weight Body Mass Index Source Mar 29, 2024 11:00 AM 97.8 76 142/78 18 99 5 [place] [facility] [place] [facility] Immunizations: All administered on the encounter date This section contains immunizations associated to the Encounter. Immunization Series Date Issued Reaction Comments INFLUENZA, HIGH-DOSE, TRIVALENT, PF Mar 29 Social History: Smoking Status (Most current) and [...] [facility]ly [facility] it November 17, 2023 08:31 AM VA-TOBACCO FORMER USER [place] [facility] [place] [facility] Tobacco Use History This section includes a history of the smoking, or tobacco-related health factors, that were collected on or before the date of the Encounter. The data comes from the [place] facility where the Encounter took place. Date/Time Smoking Status/Tobac co Use Comment Facility November 17, 2023 08:31 AM VA-TOBACCO QUIT 15 YRS OR MORE [place] [facility] [place] [facility] May 07, 2022 09:00 AM VA-TOBACCO FORMER USER [place] [facility] [place] [facility] May 07, 2022 09:00 AM VA-TOBACCO QUIT 15 YRS OR MORE [place] [facility] [place] [facility] May 21, 2021 08:00 AM VA-TOBACCO FORMER USER [place] [facility] [place] [facility] May 21, 2021 08:00 AM VA-TOBACCO QUIT 15 YRS OR MORE [place] [facility] [place] [facility] Apr 24, 2020 11:00 AM VA-TOBACCO FORMER USER [place] [facility] [place] [facility] Apr 24, 2020 11:00 AM VA-TOBACCO QUIT 15 YRS OR MORE [facility] [place] [facility] Jan 15, 2018 10:57 AM QUIT TOBACCO USE > 7 YEARS AGO [place] [facility] [place] [facility] Dec 10, 2016 08:53 AM QUIT TOBACCO USE > 7 YEARS AGO [place] [facility] [place] [facility] Jul 19, 2015 10:22 AM QUIT TOBACCO USE > 7 YEARS AGO Quit about 40 years ago. [facility] November 14, 2004 10:00 AM HISTORY OF SMOKING [facility] November 14, 2004 10:00 AM LIFETIME NON-SMOKER [facility] Oct 25, 2003 10:34 AM [facility] Oct 07, 2002 09:41 AM [facility]MO[facility] Nov 03, 2001 10:31 AM QUIT TOBACCO USE > 7 YEARS AGO [facility] Jul 31, 2001 02:15 PM NON-TOBACCO USER Quit 20 yrs ago [facility] Advance Directives: All historical and [...] Jul 03, 2023 ADVANCE DIRECTIVE RICHARD BAZZI [facility] Encounter Notes: All associated encounter notes This section contains the clinical notes associated to the Encounter. Date/Time Encounter Note(s) Provider Source Mar 30, 2024 08:35 AM ADDENDUM: LOCAL TITLE: Addendum STANDARD TITLE: ADDENDUM DATE OF NOTE: MAR 30, 2024@08:35:21 ENTRY DATE: MAR 30, 2024@08:35:22 AUTHOR: PADMA URIBE COSIGNER: URGENCY: STATUS: COMPLETED Would add iron studies (ferritin, Tsat) to pending labwork orders to better assess 's ferrous sulfate use. Re: cyanocobalamin supplementation could consider trialing off of this agent to reduce pill burden as 's vit B12 level has been elevated for years and he remains on multiple forms of supplementation. He has not had a low vit B12 level since 2009. /genoveva/ PADMA AMADO Clinical Pharmacist Practitioner Signed: 03/30/2024 08:45 Receipt Acknowledged By: 03/30/2024 09:34 /genoveva/ Millie MEEHAN [facility] union contract representative 03/30/2024 09:42 /es/ ROBERT DAVIS RN,MSN,LAUNDRY TECHNICIAN-C [facility] NURSE PRACTITIONER --- Original Document --- 03/29/24 [facility] RN PROGRESS NOTE: Nursing Progress Note Active [...] 200MG BY MOUTH TWICE DAILY ACTIVE NEEDED 3) Non-VA MULTIVITAMIN/MINERALS CAP/TAB 1 TABLET BY ACTIVE MOUTH EVERY DAY 18 Total Medications MEDICATION REVIEW Medication review [...] in patient's home at time of visit. [place] identified by: Full Name, Address Length of visit in home: 45min Problem addressed for this visit: labs, flu vax, chronic disease mgt, dm Specimen(s) collected during this visit:Specimen collected as ordered per policy. jesus well. Site benign. Urine obtained per order. Labs delivered to [facility] lab by this director underwriter sales. Labs accessioned by this director underwriter sales Site: L ANTECUBITAL NURSING SUMMARY:chronic disease mgt, CVCP assessment, medication RN visit performed in 's home for assessment of reviewed with oversight, pain mgt, skin assessment, coping and home safety.[place] is alert, oriented. Sitting at the Kitchen table. [place] did report a fall 2 weeks ago. Lost balance walking into or stepping into living room. No injury reported. [place] was not using walker or cane. Gait unsteady. Encouraged to use walker and or cane at all times. [place] states understanding. FBG 184 7 day average 207. reports to having a sweet snack most every night. Encouraged to try ru cracker and peanut butter or low sugar jello as a treat. Denies any low's. Verbalized correct dosing of insulin. followed by podiatry in [place]. Wears diabetic socks, wears properly fitting sneakers. PAVE SCREEN PERFORMED NEGATIVE. AGREED TO FLU VACCINE FLU ZONE ADMIN PER PROTOCOL TO L DELTOID DECLINES RSV AND PNEUM VAX Blood Pressure: 142/78 (03/29/2024 11:00) Pulse: 76 (03/29/2024 11:00) Respiration: 18 (03/29/2024 11:00) Temperature: 97.8 F [36.6 C] (03/29/2024 11:00) Pain Score: 5 (03/29/2024 11:00)BACK PAIN chronic. Pain with standing or walking. 2/10 when sitting. Currently taking Advil 200mg 2 tabs twice daily. Encouraged to take Tylenol instead for the pain as he is at risk for Gi bleed and creat was sl elevated last draw. [place] is not taking Vit D was told [place] not to take it any more Vitamin D level 20. Added Vit D level onto labs today . [place] is taking Ferrous sulfate OTC 28mg po daily . is taking Vitamin B12 po daily. SCript back in November 2023 will alert provider. EXAMINATION: Lungs:CTA Dyspnea with minimal exertion. Sats 99% no cough noted or reported Edema:plus 1 pedal edema. Dependent Encouraged to elevate ble throughout the day. [place] verbalizes understanding. Education provided with to limit prepared foods, frozen meals, take out foods, canned soups to limit sodium intake. [place] states understanding. not able to stand safely on scale d.t. imbalance HR: reg denies any palp or cp Bowel/Bladder:Denies any issues. Abd soft non tender pos bs. Drinks one Glucerna daily , small lunch and breakfast. For dinner eats mostly frozen prepared meals. Skin:CDI Home Safety Lives alone. Son lives nearby check in on him daily. Dtr n law prepares meals at times and medication box. FALLS YES: PLEASE REVIEW [facility] (OR HOME CARE) FALLS PROGRESS NOTE INFECTIONS NO ER/HOSPITALIZATIONS NO Teaching/goals: has ongoing complex medical needs and benefits from [facility] interdisciplinary management. and cg are included in decision making. All questions answered, education. regarding medications, disease mgt provided. [place] and caregiver verbalize understanding. will be free from falls, infections, and hospitalizations over the next 30 days. Patient verbalizes understanding to above and will call with any concerns or changes in condition. For emergent care call 911. Plan for next visit:Apr 23 chronic disease mgt /gneoveva/ Millie MEEHAN [facility] union contract representative Signed: 03/29/2024 14:43 03/29/2024 ADDENDUM STATUS: COMPLETED ALERTING PHARM D AND PCP [place] is not taking Vit D was told by [place] not to take it any more Vitamin D level 20. Added Vit D level onto labs today . is taking Ferrous sulfate OTC 28mg po daily . is taking Vitamin B12 po daily. SCript back in November 2023 will alert provider. /eliz AMADO union contract representative Signed: 03/29/2024 14:46 Receipt Acknowledged By: 03/30/2024 08:46 /genoveva/ PADMA URIBE [facility] Clinical Pharmacist Practitioner * AWAITING SIGNATURE * ROBERT DAVIS SARAH J [place] [facility] [place] [facility] Mar 29, 2024 02:49 PM NURSING FALL RISK ASSESSMENT NOTE: LOCAL TITLE: [facility] POST FALL ASSESSMENT NOTE STANDARD TITLE: NURSING FALL RISK ASSESSMENT NOTE DATE OF NOTE: MAR 29, 2024@14:49 ENTRY DATE: MAR 29, 2024@14:49:58 AUTHOR: MILLIE DAVENPORT EXP COSIGNER: URGENCY: STATUS: COMPLETED [facility] FALL ASSESSMENT NOTE Date of Fall: 03/29/24 Time of Fall: AM Transformer Tester: MILLIE DAVENPORT Fall was witnessed: No Description of Fall: Where: STEPPING DOWN INTO THE LIVING ROOM How: LOST BALANCE ON STEP Injury: No Location: N/A Side: N/A Other Information Pertinent to Fall: DID NOT WEAR SHOES Level of Injury: 0 = No injury Symptoms Prior to Fall: none Assistive Device in Use at Time of Fall: none, other (Specific) DID NOT USE Contributing Factors at time of fall: gait or imbalance Environmental Factors: none Contributing diagnosis to current fall: diabetes (neuropathy, high/low BG) If fall occurred while /[facility] staff was providing direct patient care in the home, report on Joint Patient Safety Reporting Site (JPSR) found on [facility] Intranet home page. No, not applicable Is patient currently receiving PT/OT services: No Pt referred to PT/OT: No Patient Declines NO JUST FINISHED WITH PT SERVICES A FEW MONTHS AGO Interventions: Program Follow-up: Interdisciplinary Team reviews recent falls and modifies Patient's care plan as appropriate. Neurology Professor (or designee) tracks all falls, observes trends, and modifies Falls Prevention Plan as needed. Fall data is reported to [facility] Patient Elementary Ell Teacher on a quarterly basis. /genoveva/ Millie MEEHAN [facility] union contract representative Signed: 03/29/2024 14:51 Receipt Acknowledged By: 03/30/2024 12:33 /es/ FELIPA SOLANO, OTR/L [facility] OCCUPATIONAL THERAPIST 03/29/2024 15:09 /es/ MONSE DUBON [facility] INTERNATIONAL SPECIALIST 03/29/2024 15:38 /es/ ROBERT DAVIS RN,MSN,LAUNDRY TECHNICIAN-C [facility] NURSE PRACTITIONER 04/01/2024 15:33 /es/ SCARLETT SAUCEDA, PT [facility] PHYSICAL THERAPIST MILLIE DAVENPORT [facility] Mar 29, 2024 02:45 PM ADDENDUM: LOCAL TITLE: Addendum STANDARD TITLE: ADDENDUM DATE OF NOTE: MAR 29, 2024@14:45:49 ENTRY DATE: MAR 29, 2024@14:45:50 AUTHOR: IMLLIE DAVENPORT EXP COSIGNER: URGENCY: STATUS: COMPLETED ALERTING PHARM D AND PCP is not taking Vit D was told by [place] not to take it any more Vitamin D level 20. Added Vit D level onto labs today . is taking Ferrous sulfate OTC 28mg po daily . is taking Vitamin B12 po daily. SCript back in November 2023 will alert provider. /eliz MEEHAN [facility] union contract representative Signed: 03/29/2024 14:46 Receipt Acknowledged By: 03/30/2024 08:46 /es/ PADMA URIBE [facility] Clinical Pharmacist Practitioner 03/30/2024 09:43 /es/ ROBERT DAVIS RN,MSN,LAUNDRY TECHNICIAN-C [facility] NURSE PRACTITIONER --- Original Document --- 03/29/24 [facility] RN PROGRESS NOTE: Nursing Progress Note [...] 200MG BY MOUTH TWICE DAILY ACTIVE NEEDED 3) Non-VA MULTIVITAMIN/MINERALS CAP/TAB 1 TABLET BY ACTIVE MOUTH EVERY DAY 18 Total Medications MEDICATION REVIEW Medication review [...] Name, Address Length of visit in home: 45min Problem addressed for this visit: labs, flu vax, chronic disease mgt, dm Specimen(s) collected during this visit:Specimen collected as ordered per policy. [place] jesus well. Site benign. Urine obtained per order. Labs delivered to [facility] lab by this director underwriter sales. Labs accessioned by this director underwriter sales Site: L ANTECUBITAL NURSING SUMMARY:chronic disease mgt, CVCP assessment, medication RN visit performed in 's home for assessment of reviewed with oversight, pain mgt, skin assessment, coping and home safety.[place] is alert, oriented. Sitting at the Kitchen table. [place] did report a fall 2 weeks ago. Lost balance walking into or stepping into living room. No injury reported. was not using walker or cane. Gait unsteady. Encouraged to use walker and or cane at all times. states understanding. FBG 184 7 day average 207. [place] reports to having a sweet snack most every night. Encouraged to try ru cracker and peanut butter or low sugar jello as a treat. Denies any low's. Verbalized correct dosing of insulin. [place] followed by podiatry in [place]. Wears diabetic socks, wears properly fitting sneakers. PAVE SCREEN PERFORMED NEGATIVE. AGREED TO FLU VACCINE FLU ZONE ADMIN PER PROTOCOL TO L DELTOID DECLINES RSV AND PNEUM VAX Blood Pressure: 142/78 (03/29/2024 11:00) Pulse: 76 (03/29/2024 11:00) Respiration: 18 (03/29/2024 11:00) Temperature: 97.8 F [36.6 C] (03/29/2024 11:00) Pain Score: 5 (03/29/2024 11:00)BACK PAIN chronic. Pain with standing or walking. 2/10 when sitting. Currently taking Advil 200mg 2 tabs twice daily. Encouraged to take Tylenol instead for the pain as he is at risk for Gi bleed and creat was sl elevated last draw. is not taking Vit D was told by [place] not to take it any more Vitamin D level 20. Added Vit D level onto labs today . is taking Ferrous sulfate OTC 28mg po daily . is taking Vitamin B12 po daily. SCript back in November 2023 will alert provider. EXAMINATION: Lungs:CTA Dyspnea with minimal exertion. Sats 99% no cough noted or reported Edema:plus 1 pedal edema. Dependent Encouraged to elevate ble throughout the day. [place] verbalizes understanding. Education provided with to limit prepared foods, frozen meals, take out foods, canned soups to limit sodium intake. [place] states understanding. not able to stand safely on scale d.t. imbalance HR: reg denies any palp or cp Bowel/Bladder:Denies any issues. Abd soft non tender pos bs. Drinks one Glucerna daily , small lunch and breakfast. For dinner eats mostly frozen prepared meals. Skin:CDI Home Safety Lives alone. Son lives nearby check in on him daily. Dtr n law prepares meals at times and medication box. FALLS YES: PLEASE REVIEW [facility] (OR HOME CARE) FALLS PROGRESS NOTE INFECTIONS NO ER/HOSPITALIZATIONS NO Teaching/goals: [place] has ongoing complex medical needs and benefits from [facility] interdisciplinary management. [place] and cg are included in decision making. All questions answered, education. regarding medications, disease mgt provided. and caregiver verbalize understanding. [place] will be free from falls, infections, and hospitalizations over the next 30 days. Patient verbalizes understanding to above and will call with any concerns or changes in condition. For emergent care call 911. Plan for next visit:Apr 23 chronic disease mgt /es/ Millie MEEHAN HB union contract representative Signed: 03/29/2024 14:43 03/30/2024 ADDENDUM STATUS: COMPLETED Would add iron studies (ferritin, Tsat) to pending labwork orders to better assess 's ferrous sulfate use. Re: cyanocobalamin supplementation could consider trialing off of this agent to reduce pill burden as 's vit B12 level has been elevated for years and he remains on multiple forms of supplementation. He has not had a low vit B12 level since 2009. /es/ PADMA URIBE [facility] Clinical Pharmacist Practitioner Signed: 03/30/2024 08:45 Receipt Acknowledged By: 03/30/2024 09:34 /es/ Millie MEEHAN HB union contract representative 03/30/2024 09:42 /es/ ROBERT DAVIS RN,MSN,LAUNDRY TECHNICIAN-C [facility] NURSE PRACTITIONER MILLIE DAVENPORT [facility] [place] [facility] Mar 29, 2024 02:44 PM PREVENTIVE MEDICIN E NURSING NOTE: LOCAL TITLE: CLINICAL REMINDERS/NURSING STANDARD TITLE: PREVENTIVE MEDICINE NURSING NOTE DATE OF NOTE: MAR 29, 2024@14:44 ENTRY DATE: MAR 29, 2024@14:44:14 AUTHOR: MILLIE DAVENPORT EXP COSIGNER: URGENCY: STATUS: COMPLETED Influenza Immunization: Influenza, High-Dose, Trivalent, Preservative Free (Fluzone-Syringe) Administered: INFLUENZA, HIGH-DOSE, TRIVALENT, PF Date Administered: Mar 29, 2024 11:00 Interventional Pain Physician: SANOFI PASTEUR Lot: [id number] Exp Date: Jan 03, 2025 [facility]: [id number] Admin Route/Site: INTRAMUSCULAR/LEFT DELTOID Dosage: 0.5mL Vaccine Information Statement(s): INFLUENZA(FLU) VACC(INACTIVATED OR RECOMBINANT)VIS Feb 09, 2021 (CONGOLESE) Order By: Policy Administered By: Millie Davenport The Influenza Vaccine Information Statement (VIS) was reviewed with the patient/caregiver which lists the benefits and risks of the vaccine and the risks of not receiving the Influenza vaccine. The patient/caregiver denied any prior severe reaction to this vaccine or its components or a severe allergic reaction, such as anaphylaxis, to any vaccine or any injectable therapy. The patient/caregiver gave verbal consent to receive the vaccine. /genoveva/ Millie MEEHAN [facility] union contract representative Signed: 03/29/2024 14:45 Receipt Acknowledged By: 03/29/2024 14:45 /genoveva/ MONSE DUBON HB INTERNATIONAL SPECIALIST MILLIE DAVENPORT [place] [facility]L [facility] Mar 29, 2024 02:27 PM [facility] NURSING NOTE: LOCAL TITLE: [facility] RN PROGRESS NOTE STANDARD TITLE: [facility] NURSING NOTE DATE OF NOTE: MAR 29, 2024@14:27 ENTRY DATE: MAR 29, 2024@14:27:50 AUTHOR: MILLIE DAVENPORT EXP COSIGNER: URGENCY: STATUS: [...] 200MG BY MOUTH TWICE DAILY ACTIVE NEEDED 3) Non-VA MULTIVITAMIN/MINERALS CAP/TAB 1 TABLET BY ACTIVE MOUTH EVERY DAY 18 Total Medications MEDICATION REVIEW Medication review [...] in patient's home at time of visit. [place] identified by: Full Name, Address Length of visit in home: 45min Problem addressed for this visit: labs, flu vax, chronic disease mgt, dm Specimen(s) collected during this visit:Specimen collected as ordered per policy. Gaurang jesus well. Site benign. Urine obtained per order. Labs delivered to [facility] lab by this director underwriter sales. Labs accessioned by this director underwriter sales Site: L ANTECUBITAL NURSING SUMMARY:chronic disease mgt, CVCP assessment, medication RN visit performed in 's home for assessment of reviewed with oversight, pain mgt, skin assessment, coping and home safety. is alert, oriented. Sitting at the Kitchen table. did report a fall 2 weeks ago. Lost balance walking into or stepping into living room. No injury reported. [place] was not using walker or cane. Gait unsteady. Encouraged to use walker and or cane at all times. states understanding. FBG 184 7 day average 207. [place] reports to having a sweet snack most every night. Encouraged to try ru cracker and peanut butter or low sugar jello as a treat. Denies any low's. Verbalized correct dosing of insulin. followed by podiatry in [place]. Wears diabetic socks, wears properly fitting sneakers. PAVE SCREEN PERFORMED NEGATIVE. AGREED TO FLU VACCINE FLU ZONE ADMIN PER PROTOCOL TO L DELTOID DECLINES RSV AND PNEUM VAX Blood Pressure: 142/78 (03/29/2024 11:00) Pulse: 76 (03/29/2024 11:00) Respiration: 18 (03/29/2024 11:00) Temperature: 97.8 F [36.6 C] (03/29/2024 11:00) Pain Score: 5 (03/29/2024 11:00)BACK PAIN chronic. Pain with standing or walking. 2/10 when sitting. Currently taking Advil 200mg 2 tabs twice daily. Encouraged to take Tylenol instead for the pain as he is at risk for Gi bleed and creat was sl elevated last draw. is not taking Vit D was told by [place] not to take it any more Vitamin D level 20. Added Vit D level onto labs today . [place] is taking Ferrous sulfate OTC 28mg po daily . is taking Vitamin B12 po daily. SCript back in November 2023 will alert provider. EXAMINATION: Lungs:CTA Dyspnea with minimal exertion. Sats 99% no cough noted or reported Edema:plus 1 pedal edema. Dependent Encouraged to elevate ble throughout the day. [place] verbalizes understanding. Education provided with to limit prepared foods, frozen meals, take out foods, canned soups to limit sodium intake. states understanding. not able to stand safely on scale d.t. imbalance HR: reg denies any palp or cp Bowel/Bladder:Denies any issues. Abd soft non tender pos bs. Drinks one Glucerna daily , small lunch and breakfast. For dinner eats mostly frozen prepared meals. Skin:CDI Home Safety Lives alone. Son lives nearby check in on him daily. Dtr n law prepares meals at times and medication box. FALLS YES: PLEASE REVIEW [facility] (OR HOME CARE) FALLS PROGRESS NOTE INFECTIONS NO ER/HOSPITALIZATIONS NO Teaching/goals: [place] has ongoing complex medical needs and benefits [...] emergent care call 911. Plan for next visit:Apr 23 chronic disease mgt /genoveva/ Millie MEEHAN HB union contract representative Signed: 03/29/2024 14:43 03/29/2024 ADDENDUM STATUS: COMPLETED ALERTING PHARM D AND PCP [place] is not taking Vit D was told by [place] not to take it any more Vitamin D level 20. Added Vit D level onto labs today . [place] is taking Ferrous sulfate OTC 28mg po daily . is taking Vitamin B12 po daily. SCript back in November 2023 will alert provider. /eliz MEEHAN HB union contract representative Signed: 03/29/2024 14:46 Receipt Acknowledged By: 03/30/2024 08:46 /genoveva/ PADMA URIBE [facility] Clinical Pharmacist Practitioner * AWAITING SIGNATURE * ROBERT DAVIS 03/30/2024 ADDENDUM STATUS: COMPLETED Would add iron studies (ferritin, Tsat) to pending labwork orders to better assess 's ferrous sulfate use. Re: cyanocobalamin supplementation could consider trialing off of this agent to reduce pill burden as 's vit B12 level has been elevated for years and he remains on multiple forms of supplementation. He has not had a low vit B12 level since 2009. /genoveva/ PADMA URIBE [facility] Clinical Pharmacist Practitioner Signed: 03/30/2024 08:45 Receipt Acknowledged By: * AWAITING SIGNATURE * MILLIE DAVENPORT * AWAITING SIGNATURE * ROBERT DAVIS [facility]
--- OUTSIDE RECORDS SUMMARY | 2024-07-04 16:11 | XMS_ITS ---
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 Name Role Phone ROBERT DAVIS Primary Care [...] O MEDEX BRONZ E Jun 06, 2001 [id number] OMAS PATIENT ANTHEM BCBS OF [place] (BLUECARD) MEDICARE SUPPLEMEN BHARGAVI PSUED O MEDEX BRONZ E Jun 06, 2001 [id number] OMAS PATIENT BCBS [place] MEDICARE SUPPLEMEN BHARGAVI MEDEX BRONZ E Jun 06, 2001 [id number] [phone] OMAS PATIENT BCBS [place] MEDICARE SUPPLEMEN BHARGAVI PSUED O MEDEX BRONZ E Jun 06, 2001 [id number] HUDRACHEL BOYER OMAS PATIENT BCBS OF [facility] MEDICARE SUPPLEMEN BHARGAVI PSUED O MEDEX BRONZ E Jun 06, 2001 [id number] HUDMERLIN,RACHEL OMAS PATIENT MEDICARE (WNR) MEDICARE (M) PART A May 07, 2001 PART A [id number] HUDOCK,RACHEL OMAS PATIENT MEDICARE (WNR) MEDICARE (M) PART B May 07, 2001 PART B [id number] HUDOCK,RACHEL OMAS PATIENT MEDICARE (WNR) MEDICARE (M) PART A May 07, 2001 PART A [id number] ([id number] HUDMERLIN,RACHEL OMAS PATIENT MEDICARE (WNR) MEDICARE (M) PART B May 07, 2001 PART B [id number] ([id number] HUDMERLIN,RACHEL OMAS PATIENT MEDICARE (WNR) MEDICARE (M) PART A May 07, 2001 PART A [id number] HUDRACHEL BOYER OMAS PATIENT MEDICARE (WNR) MEDICARE (M) PART B May 07, 2001 PART B [id number] HUDMERLIN,RACHEL OMAS PATIENT MEDICARE (WNR) MEDICARE (M) PART A May 07, 2001 PART A [id number] ([id number] HUDMERLIN,RACHEL OMAS PATIENT MEDICARE (WNR) MEDICARE (M) PART B May 07, 2001 PART B [id number] ([id number] HUDRACHEL BOYER OMGUANACO PATIENT Selected Encounter This section includes the information on record at [place] for the Encounter. Date/Time Encounter Type Encounter Description Reason Pro vider Source Apr 07, 2024 03:44 PM Outpatient Encounter TELEPHONE/GERIATRICS IHE Encounter Template Text [...] 20 appointments. The data comes from all [place] treatment facilities. Appointment Date/Time Appointment Type Appointme nt Facility Name May 08, 2024 08:00 AM AMBULATORY [place]ICINE [place] [facility] [facility] Jul 13, 2024 11:00 AM AMBULATORY - MEDICINE [facility] Active, Pending, and Scheduled Orders This section includes a listing of several types of active, pending, and scheduled orders, including clinic medications orders, diagnostic test orders, procedure orders and consult orders; where the start date of the order is 45 days before the date of the Encounter or 45 days after the date of theEncounter. The data comes from all [place] treatment facilities. Test Date/Time Test Type Test Details Facility Name Apr 07, 2024 04:04 PM Consult Order [facility] NON-SKILLED HOME HEALTH AIDE Cons Sql Manager's Choice [facility] Lab Results: +/- 30 days of the encounter This section includes the Chemistry and Hematology Lab Results on record with [place] for the patient. Radiology Reports and Pathology Reports are provided separately, in subsequent sections. Lab Results This section contains the Chemistry/Hematology Results that were resulted 30 days before or 30 daysafter the date of the Encounter. Date/Time Source Result Type Result - Unit Interpretation Reference Range Comment Mar 29, 2024 12:00 PM [facility] VITAMIN D (25-OH) Specimen Type: SERUM No comment entered. Ordering Provider: MARQUES JEFFERY Report Released Date/Time: Mar 29, 2024 02:13 PM Reporting Lab: [facility] [address] [address] Performing Lab: [facility] [address] [address] VITAMIN D (25-OH) 17 ng/mL L 20-50 Mar 29, 2024 12:00 PM [facility] IRON & TIBC PANEL Specimen Type: SERUM No comment entered. Ordering Provider: Crispin DAVIS Report Released Date/Time: Mar 30, 2024 12:26 PM Reporting Lab: [facility] [address] [address] Performing Lab: [facility] [address] [address] TIBC 279 ug/dL 204-475 IRON 114 ug/dL 40-160 Transferrin Saturation 40.9 20.0-50.0 Transferrin (TRF) 211 mg/dL 200-360 Mar 29, 2024 12:00 PM [facility] HEMOGLOBIN A1C PANEL Specimen Type: BLOOD [...] Feb 03, 2024 09:47 AM Reporting Lab: [address] [address] Performing Lab: [address] [address] HEMOGLOBIN A1C 7.7 H 4.0-5.6 Mar 29, 2024 12:00 PM [facility] MICROALBUMIN CREATININE RATIO PANEL Specimen Type: URINE No comment entered. Ordering Provider: Crispin DAVIS Report Released Date/Time: Feb 03, 2024 09:47 AM Reporting Lab: [address] [address] Performing Lab: [address] [address] MICROALBUMIN/C REATININE RATIO 121.4 mg/g H 0-29.9 MICROALBUMIN,Q UANTITATIVE 1.5 mg/dL RR UNAVAIL CREATININE URINE 12.36 mg/dL Mar 29, 2024 12:00 PM [facility] URIC ACID Specimen Type: SERUM No comment entered. Ordering Provider: Crispin DAVIS Report Released Date/Time: Feb 03, 2024 09:47 AM Reporting Lab: [facility] [address] [address] Performing Lab: [address] [address] URIC ACID 9.9 mg/dL H 3.5-7.2 Mar 29, 2024 12:00 PM [facility] BASIC METABOLIC PANEL (non-fasting) Specimen Type: SERUM No comment entered. Ordering Provider: Crispin DAVIS Report Released Date/Time: Feb 03, 2024 09:47 AM Reporting Lab: [facility] [address] [address] Performing Lab: [address] [address] UREA NITROGEN 43 mg/dL H 7-25 GLUCOSE 290 mg/dL H 65-100 SODIUM 135 mmol/L 135-145 POTASSIUM 4.5 mmol/L 3.5-5.0 CHLORIDE 100 mmol/L 100-110 CO2 28 meq/L 20-30 CREATININE, Serum 1.35 mg/dL 0.50-1.40 eGFR(CKD-EPI 2020) 50 mL/min L >60 Mar 29, 2024 12:00 PM [facility] CBC AND DIFF (AUTO) Specimen Type: BLOOD No comment entered. Ordering Provider: Crispin DAVIS Report Released Date/Time: Feb 03, 2024 09:47 AM Reporting Lab: [address] [address] Performing Lab: [address] [address] WBC 3.88 10*3/uL L 4.50-11.00 RBC 2.94 [...] and tobacco- related health factors from the [place] facility where the Encounter took place. Current Smoking Status This section includes the most current smoking, or tobacco-related health factor, from the [place] facility where the Encounter took place. Date/Time Current Smoking Status Comment [facility] it November 17, 2023 08:31 AM VA-TOBACCO FORMER USER [place] [facility] [facility] [facility] Tobacco Use History This section includes a history of the smoking, or tobacco-related health factors, that were collected on or before the date of the Encounter. The data comes from the [place] facility where the Encounter took place. Date/Time Smoking Status/Tobac co Use Comment Facility November 17, 2023 08:31 AM VA-TOBACCO QUIT 15 YRS OR MORE [place] [facility] [facility] May 07, 2022 09:00 AM VA-TOBACCO FORMER USER [place] [facility] May 07, 2022 09:00 AM VA-TOBACCO QUIT 15 YRS OR MORE [place] [facility] [facility] May 21, 2021 08:00 AM VA-TOBACCO FORMER USER [place] [facility] May 21, 2021 08:00 AM VA-TOBACCO QUIT 15 YRS OR MORE [place] [facility] [place] [facility] Apr 24, 2020 11:00 AM VA-TOBACCO FORMER USER [place] [facility] Apr 24, 2020 11:00 AM VA-TOBACCO QUIT 15 YRS OR MORE [place] [facility] Jan 15, 2018 10:57 AM QUIT TOBACCO USE > 7 YEARS AGO [place] [facility] [facility] Dec 10, 2016 08:53 AM QUIT TOBACCO USE > 7 YEARS AGO [place] [facility] Jul 19, 2015 10:22 AM QUIT TOBACCO USE > 7 YEARS AGO Quit about 40 years ago. [place] [facility] November 14, 2004 10:00 AM HISTORY OF SMOKING [place] [facility] November 14, 2004 10:00 AM LIFETIME NON-SMOKER [facility] Oct 25, 2003 10:34 AM HISTORY OF SMOKING [facility] Oct 07, 2002 09:41 AM HISTORY OF SMOKING [facility] Nov 03, 2001 10:31 AM QUIT TOBACCO USE > 7 YEARS AGO [facility] Jul 31, 2001 02:15 PM NON-TOBACCO USER Quit 20 yrs ago [facility] Advance Directives: All historical and current Section Date Range: From patient's date of to the date document was created. This section includes ALL of a patient's completed or amended [place] Advance and Rescinded Directives. The entries below indicate that a directive exists for the patient, but an actual copy is not included with this document. The data comes from all [place] facilities. Date Advance Directives Provider Source Jul 03, 2023 ADVANCE DIRECTIVE RICHARD BAZZI [facility] RL TRN [facility] Encounter Notes: All associated encounter notes This section contains the clinical notes associated to the Encounter. Date/Time Encounter Note(s) Provider Source Apr 07, 2024 03:44 PM SOCIAL WORK NOTE: LOCAL TITLE: PERSONAL CARE SERVICES REVIEW STANDARD TITLE: SOCIAL WORK NOTE DATE OF NOTE: APR 07, 2024@15:44 ENTRY DATE: APR 07, 2024@15:44:41 AUTHOR: TRUPTI STEPHENSON EXP COSIGNER: URGENCY: STATUS: COMPLETED Personal Care Services Review Type of review: Reauthorization Information to complete oversight obtained from: Review of medical record Review of community vendor submitted documentation Community vendor Name: Home [employer] Caregivers Community vendor point of contact Name: Crystal The care plan has been reviewed. Care rendered as authorized. [place] meets administrative eligibility criteria. meets clinical eligibility criteria. Case Mix Tool: Date Completed: Apr Case Mix Score: D First range of hours to be used. 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
--- OUTSIDE RECORDS SUMMARY | 2024-07-04 16:11 | XMS_ITS ---
Author Name [facility] [place] [facility] Address [address] [place] [address] Care Team Providers Care Bellhop Service Captain Name Role Phone ROBERT DAVIS Primary Care [...] O MEDEX BRONZ E Jun 06, 2001 [id number] [phone] OMAS PATIENT ANTHEM BCBS OF CT (BLUECARD) MEDICARE SUPPLEMEN BHARGAVI PSUED O MEDEX BRONZ E Jun 06, 2001 [id number] OMAS PATIENT [place] MEDIC[place] SUPPLEMEN BHARGAVI MEDEX BRONZ E Jun 06, 2001 [id number] OMAS PATIENT [place] SUPPLEMEN BHARGAVI PSUED O MEDEX BRONZ E Jun 06, 2001 [id number] [phone] HUDRACHEL BOYER OMAS PATIENT [place] MEDICARE SUPPLEMEN BHARGAVI PSUED O MEDEX BRONZ E Jun 06, 2001 [id number] HUDMERLIN,RACHEL OMAS PATIENT MEDICARE (WNR) MEDICARE (M) PART A May 07, 2001 PART A [id number] HUDOCK,RACHEL OMAS PATIENT MEDICARE (WNR) MEDICARE (M) PART B May 07, 2001 PART B [id number] ([id number] HUDOCK,RACHEL OMAS PATIENT MEDICARE (WNR) MEDICARE (M) PART A May 07, 2001 PART A [id number] ([id number] HUDOCK,RACHEL OMAS PATIENT MEDICARE (WNR) MEDICARE (M) PART B May 07, 2001 PART B [id number] ([id number] HUDMERLIN,RACHEL OMAS PATIENT MEDICARE (WNR) MEDICARE (M) PART A May 07, 2001 PART A [id number] HUDMERLIN,RACHEL OMAS PATIENT MEDICARE (WNR) MEDICARE (M) PART B May 07, 2001 PART B [id number] HUDMERLIN,RACHEL OMAS PATIENT MEDICARE (WNR) MEDICARE (M) PART A May 07, 2001 PART A [id number] ([id number] HUDMERLIN,RACHEL OMAS PATIENT MEDICARE (WNR) MEDICARE (M) PART B May 07, 2001 PART B [id number] ([id number] HUDRACHEL BOYER OMGUANACO PATIENT Selected Encounter This section includes the information on record at [place] for the Encounter. Date/Time Encounter Type Encounter Description Reason Pro vider Source Apr 26, 2024 04:56 PM Outpatient Encounter [facility] PHYSIC EXTND(FOOD AND BEVERAGE ORDER CLERK,SWIMMING INSTRUCTOR,PA) IHE Encounter Template Text not used by [...] 20 appointments. The data comes from all [facility]. Appointment Date/Time Appointment Type Appointme nt Facility Name May 08, 2024 08:00 AM AMBULATORY - MEDICINE [facility] Jul 13, 2024 11:00 AM AMBULATORY - MEDICINE [facility] Oct 07, 2024 11:00 AM AMBULATORY MEDICINE [facility] Active, Pending, and Scheduled Orders This section includes a listing of several types of active, pending, and scheduled orders, including clinic medications orders, diagnostic test orders, procedure orders and consult orders; where the start date of the order is 45 days before the date of the Encounter or 45 days after the date of theEncounter. The data comes from all [facility]. Test Date/Time Test Type Test Details Facility Name Apr 07, 2024 04:04 PM Consult Order [facility] NON-SKILLED HOME HEALTH AIDE Cons Er Medical Technician's Choice [facility] Lab Results: +/- 30 days of [...] Range Comment Mar 29, 2024 12:00 PM [facility] VITAMIN D (25-OH) Specimen Type: SERUM No comment entered. Ordering Provider: MARQUES GRANGER Report Released Date/Time: Mar 29, 2024 02:13 PM Reporting Lab: [facility] [address] [address] Performing Lab: [facility] [address] [address] VITAMIN D (25-OH) 17 ng/mL L 20-50 Mar 29, 2024 12:00 PM [facility] IRON & TIBC PANEL Specimen Type: SERUM No comment entered. Ordering Provider: Crispin DAVIS Report Released Date/Time: Mar 30, 2024 12:26 PM Reporting Lab: [facility] [address] [address] Performing Lab: [facility] [address] [address] TIBC 279 ug/dL 204-475 IRON 114 ug/dL 40-160 Transferrin Saturation 40.9 20.0-50.0 Transferrin (TRF) 211 mg/dL 200-360 Mar 29, 2024 12:00 PM [facility] HEMOGLOBIN A1C PANEL Specimen Type: BLOOD [...] Feb 03, 2024 09:47 AM Reporting [facility]: [facility] [address] [address] Performing [facility]: [facility] [address] [address] HEMOGLOBIN A1C 7.7 H 4.0-5.6 Mar 29, 2024 12:00 PM [facility] URIC ACID Specimen Type: SERUM No comment entered. Ordering Provider: Crispin DAVIS Report Released Date/Time: Feb 03, 2024 09:47 AM Reporting Lab: [facility] [address] [address] Performing Lab: [facility] [address] [address] URIC ACID 9.9 mg/dL H 3.5-7.2 Mar 29, 2024 12:00 PM [facility] MICROALBUMIN CREATININE RATIO PANEL Specimen Type: URINE No comment entered. Ordering Provider: Crispin DAVIS Report Released Date/Time: Feb 03, 2024 09:47 AM Reporting Lab: [facility] [address] [address] Performing Lab: [address] [address] MICROALBUMIN/C REATININE RATIO 121.4 mg/g H 0-29.9 MICROALBUMIN,Q UANTITATIVE 1.5 mg/dL RR UNAVAIL CREATININE URINE 12.36 mg/dL Mar 29, 2024 12:00 PM [facility] BASIC METABOLIC PANEL (non-fasting) Specimen Type: SERUM No comment entered. Ordering Provider: Crispin DAVIS Report Released Date/Time: Feb 03, 2024 09:47 AM Reporting Lab: [address] [address] Performing Lab: [address] [address] UREA NITROGEN 43 mg/dL H 7-25 GLUCOSE 290 mg/dL H 65-100 SODIUM 135 mmol/L 135-145 POTASSIUM 4.5 mmol/L 3.5-5.0 CHLORIDE 100 mmol/L 100-110 CO2 28 meq/L 20-30 CREATININE, Serum 1.35 mg/dL 0.50-1.40 eGFR(CKD-EPI 2020) 50 mL/min L >60 Mar 29, 2024 12:00 PM [facility] CBC AND DIFF (AUTO) Specimen Type: BLOOD No comment entered. Ordering Provider: Crispin DAVIS Report Released Date/Time: Feb 03, 2024 09:47 AM Reporting Lab: [facility] [address] [address] Performing Lab: [address] [address] WBC 3.88 10*3/uL L 4.50-11.00 RBC 2.94 [...] took place. Date/Time Current Smoking Status Comment [facility] November 17, 2023 08:31 AM VA-TOBACCO FORMER USER [facility] Tobacco Use History This section includes a history of the smoking, or tobacco-related health factors, that were collected on or before the date of the Encounter. The data comes from the [place] facility where the Encounter took place. Date/Time Smoking Status/Tobac co Use Comment Facility November 17, 2023 08:31 AM [place]-TO[place]ACCO QUIT 15 YRS OR MORE [facility] May 07, 2022 09:00 AM VA-TOBACCO FORMER USER [facility] May 07, 2022 09:00 AM VA-TOBACCO QUIT 15 YRS OR MORE [place] [facility] [place] [facility] May 21, 2021 08:00 AM VA-TOBACCO FORMER USER [place] [facility] [place] [facility] May 21, 2021 08:00 AM VA-TOBACCO QUIT 15 YRS OR MORE [place] [facility] [facility] Apr 24, 2020 11:00 AM VA-TOBACCO FORMER USER [place] [facility] Apr 24, 2020 11:00 AM VA-TOBACCO QUIT 15 YRS OR MORE [place] [facility] [facility] Jan 15, 2018 10:57 AM QUIT TOBACCO USE > 7 YEARS AGO [place] [facility] [place] [facility] Dec 10, 2016 08:53 AM QUIT TOBACCO USE > 7 YEARS AGO [place] [facility] Jul 19, 2015 10:22 AM QUIT TOBACCO USE > 7 YEARS AGO Quit about 40 years ago. [facility] [place] [facility] November 14, 2004 10:00 AM HISTORY OF SMOKING [facility] November 14, 2004 10:00 AM LIFETIME NON-SMOKER [facility] Oct 25, 2003 10:34 AM HISTORY OF SMOKING [facility] Oct 07, 2002 09:41 AM HISTORY OF SMOKING [facility] Nov 03, 2001 10:31 AM QUIT TOBACCO USE > 7 YEARS AGO [facility] Jul 31, 2001 02:15 PM NON-TOBACCO USER Quit 20 yrs ago [facility] Advance Directives: All historical and current [...] Jul 03, 2023 ADVANCE DIRECTIVE RICHARD [facility]ZZI [facility] Encounter Notes: All associated encounter notes This section contains the clinical notes associated to the Encounter. Date/Time Encounter Note(s) Provider Source Apr 27, 2024 10:38 AM ADDENDUM: LOCAL TITLE: Addendum STANDARD TITLE: ADDENDUM DATE OF NOTE: APR 27, 2024@10:38:09 ENTRY DATE: APR 27, 2024@10:38:09 AUTHOR: MILLIE DAVENPORT COSIGNER: URGENCY: STATUS: COMPLETED Plan of care reviewed with IDT /genoveva/ Millie Davenport BSN [facility] crane operator Signed: 04/27/2024 10:38 Receipt Acknowledged By: 04/27/2024 19:25 /es/ JHONNY NIEVES RN, BSN [facility] POOL ATTENDANT 04/27/2024 11:43 /es/ Malgorzata Liang, MSN, FOOD AND BEVERAGE ORDER CLERK [facility] Wheel Truer 04/27/2024 16:41 /es/ MARQUES GRANGER [facility] NURSE PRACTITIONER 04/27/2024 11:11 /es/ PADMA URIBE [facility] Clinical Pharmacist Practitioner 04/27/2024 10:51 /es/ OVIDIO LOWE RD, LDN REGISTERED DIETITIAN 04/27/2024 10:46 /es/ RICHARD BAZZI WASHATERIA ATTENDANT [facility] Supervisor [employer] 04/27/2024 10:56 /es/ Clotilde Arthur [facility] Occupational Therapist 05/03/2024 10:40 /es/ CASSANDRA FERRELL STAFF DIETITIAN 04/28/2024 17:20 /es/ Aman Rascon RN BSN [facility] POOL ATTENDANT 04/27/2024 14:00 /es/ TERRANCE Waller MD --- Original Document --- 04/26/24 [facility] INTERDISCIPLINARY NOTE: INTERDISCIPLINARY NOTE Allergies: LISINOPRIL Risk Assessment Level 1 Low risk DNR: No Advanced Directive Completed: Yes Family/Community Support:darci Loya [phone] ,dtr n law manages meds [employer] COMPLEX CASE MANAGER 12 hrs weekly Mental Status: A & O X 3 PLAN OF CARE 90 day Dates covered by plan of care Apr 27 2024 to Jul 2024 Primary Care Provider: Marques Granger FOOD AND BEVERAGE ORDER CLERK PROBLEM LIST: Active problems - Computerized Problem List is the source for the followin. 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 Peripheral neuropathy due to type 2 diabetes mellitus 3. Diabetic retinopathy associated with type 2 diabetes mellitus 4. Coronary artery disease 3 vessel CABG @ [facility], 03/2016. 5. Personal History of Colonic Polyps One TA, two HP polyps diverticulosis on 09/06/2010 colonoscopy 6. Osteoarthritis 7. Elevated Prostate Specific Antigen (PSA) 8. Anemia * 9. Vitamin B 12 Deficiency 10. Other and unspecified alcohol dependence, unspecified drinking behavior (ICD 11. Back Pain 12. Hyperlipidemia (SNOMED CT 97404358) 13. Hypertension (SNOMED CT 11599318) 14. Diabetes mellitus (SNOMED CT 83887917) Active Outpatient Medications Status 1) ACCU-CHEK GUIDE [...] ACTIVE MOUTH EVERY DAY 18 Total Medications Gender Specific Health Assessment: hx of Elevate PSA Fall Risk: [facility] 10 Fall Risk Assessment Tool [...] considered at risk for falling. Created by: [facility] Functional Limitations Use [...] process GOAL will not sustain a fall over the next 90days [place] will demonstrate selective preventative measures to prevent falls in the home over the next 90days Interventions: 1.Assess circumstances associated with increasing the [...] a BG reading of less than 180mcq/dl over the next 90days Interventions: 1.Assess 's knowledge of Disease 2. [...] of hypertension and when to report to [facility] provider(s) or seek emergency medical care. Monitor [...] set up medications as ordered venipuncture per FOOD AND BEVERAGE ORDER CLERK order oxygen saturation :as needed SOB PRN [...] will recognize changes that require reporting to [facility] staff patient will do accuchecks and follow diabetic diet patient will demonstrate correct use of adaptive equipment patient will be safe in home with environment adjusted to accomodate decrease in cognition and/or increase in disease progression Involvement of additional [facility] team members: N.P. assess and attach specific plan SW assess and attach specific plan RD assess and attach specific plan O.T. assess and attach specific plan request pharmacy review of medications Discharge Plan when able to remain in community safely with assistance of services and or family Per [facility] Discharge Policy Nadine is an 88 year [...] followed by Dr Jaimes. BG poorly controlled. [place] does not always follow dietary reccomendations and eats mostly prepared frozen meals. Education provided but because nadine lives alone this form of food is easier for him to prepare. A1C increased to 7.7 Insulin doses adjusted to (aspart 5/3/6 and glargine 16 units daily)and is on Empagliflozin 25mg po daily. [place] with a hx of chronic back pain most recently with a report of increased pain. He recently had a physical with Dr Yeager who ordered an MRI that showed spinal stenosis and compression in the lumbar region. Nadine has been evaluated by Dr Gracia is not a surgical candidate at this time. He was referred to [facility] for injection. Currently, nadine reports to taking Tylenol 500mg 2 tabs twice a day with minimal relief. The pain resolves . 's gait is slightly unsteady at times. He uses a walker when he leaves the home. Around the house he will use the cane. He has reported a recent fall with minor injury. [place] with a hx of CAD is followed by Dr Sewell webfed offset press operator.Recent Echo performed .Request records. [place]'s bp has been running higher than ususal back to baseline with the increase in Lisinopril doseage. Vit D 17ng/ml with current doseage of 50mcg daily. WHAT MATTERS What Matters was addressed at this visit. Comment: to stay at home as long as I can MEDICATION Medications were addressed at this visit. Comment: Med rec performed by PCP. Meds reviewed each visit . DNL manages meds MENTATION Depression was addressed at this visit. Comment: Lonely. Denies any S.I. family supportive. Followed by RETAIL PROPERTY MANAGER MENTATION Dementia was addressed at this visit. Comment: AOX3 forgetful at times. MENTATION Delirium was addressed at this visit. Comment: No sx noted MOBILITY -------- Mobility was addressed at this visit. Comment: Gait sl steady. Use of cane and walker. Free from falls. is followed by Dr Chacon =Podiatry Dr Schumacher =Opthomologist Dr Yeager =community provider Dr Sewell=Tv Technician [place] receives 12 hrs of [facility] hrs through Care [employer] to assist with adls and Iadls. [place]'s goal is to live at home as long as possible. Continue to provide comprehensive medical care in the home. Assess for ss of depression, coping, home safety. [place] has ongoing complex medical needs and benefits from [facility] interdisciplinary management. [place] and cg are included in decision making. All questions answered, education regarding medication, and disease mgt reinforced with who verbalizes understanding. [place] will be free from falls, infection, and hospitalizations over the next 90 days. PLAN OF CARE REVIEWED WITH IDT TEAM /genoveva/ Millie MEEHAN PC crane operator Signed: 04/27/2024 09:29 04/27/2024 ADDENDUM STATUS: COMPLETED Supervisor [employer] is available for psychosocial support as needed. Annual assessment to be conducted November 2024 unless otherwise indicated. /es/ MARY GARCIA [facility] Supervisor [employer] Signed: 04/27/2024 10:47 04/27/2024 ADDENDUM STATUS: COMPLETED [place] discussed at IDT meeting. Patient was last seen in person by [facility] dietitian on 01/30/24. Plan: 1. Follow-up visit: annually or sooner [...] OVIDIO LOWE RD, LDN REGISTERED DIETITIAN Signed: 04/27/2024 10:51 04/27/2024 ADDENDUM STATUS: COMPLETED No [facility] rehab needs identified at this time; will follow up with [place] annually and as need arises for change in function. /es/ Clotilde Arthur [facility] Occupational Therapist Signed: 04/27/2024 10:56 04/27/2024 ADDENDUM STATUS: COMPLETED Will continue to review medication regimen quarterly. /es/ PADMA URIBE [facility] Clinical Pharmacist Practitioner Signed: 04/27/2024 11:12 MILLIE DAVENPORT [place] [facility] [place] [facility] Apr 26, 2024 04:56 PM [facility] NOTE: LOCAL TITLE: [facility] INTERDISCIPLINARY NOTE STANDARD TITLE: HB NOTE DATE OF NOTE: APR 26, 2024@16:56 ENTRY DATE: APR 26, 2024@16:56:19 AUTHOR: MILLIE DAVENPORT EXP COSIGNER: URGENCY: STATUS: COMPLETED [facility] INTERDISCIPLINARY NOTE Has ADDENDA INTERDISCIPLINARY NOTE Allergies: LISINOPRIL Risk Assessment Level 1 Low risk DNR: No Advanced Directive Completed: Yes Family/Community Support:darci Loya [phone] ,dtr n law manages meds [employer] COMPLEX CASE MANAGER 12 hrs weekly Mental Status: A & O X 3 PLAN OF CARE 90 day Dates covered by plan of care Apr 27 2024 to Jul 2024 Primary Care Provider: Marques Granger NP PROBLEM LIST: Active problems - Computerized Problem List is the source for the followin. 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 Peripheral neuropathy due to type 2 diabetes mellitus 3. Diabetic retinopathy associated with type 2 diabetes mellitus 4. Coronary artery disease 3 vessel CABG @ [facility], 03/2016. 5. Personal History of Colonic Polyps One TA, two HP polyps diverticulosis on 09/06/2010 colonoscopy 6. Osteoarthritis 7. Elevated Prostate Specific Antigen (PSA) 8. Anemia * 9. Vitamin B 12 Deficiency 10. Other and unspecified alcohol dependence, unspecified drinking behavior (ICD 11. Back Pain 12. Hyperlipidemia (SNOMED CT 42500487) 13. Hypertension (SNOMED CT 38593230) 14. Diabetes mellitus (SNOMED CT 34535128) Active Outpatient Medications Status 1) ACCU-CHEK GUIDE [...] ACTIVE MOUTH EVERY DAY 18 Total Medications Gender Specific Health Assessment: hx of Elevate PSA Fall Risk: [facility] 10 Fall Risk Assessment Tool [...] considered at risk for falling. Created by: [facility] Functional Limitations Use [...] process GOAL will not sustain a fall over the next 90days will demonstrate selective preventative measures to prevent falls in the home over the next 90days Interventions: 1.Assess circumstances associated with increasing the [...] a BG reading of less than 180mcq/dl over the next 90days Interventions: 1.Assess 's knowledge of Disease 2. [...] of extreme fatigue and activity intolerance. Educate [place] on signs and symptoms of hypertension and when to report to [facility] provider(s) or seek emergency medical care. Monitor [...] set up medications as ordered venipuncture per FOOD AND BEVERAGE ORDER CLERK order oxygen saturation :as needed SOB PRN [...] will recognize changes that require reporting to [facility] staff patient will do accuchecks and follow diabetic diet patient will demonstrate correct use of adaptive equipment patient will be safe in home with environment adjusted to accomodate decrease in cognition and/or increase in disease progression Involvement of additional [facility] team members: N.P. assess and attach specific plan SW assess and attach specific plan RD assess and attach specific plan O.T. assess and attach specific plan request pharmacy review of medications Discharge Plan when able to remain in community safely with assistance of services and or family Per [facility] Discharge Policy Nadine is an 88 year old male who lives alone in a single family home. He has 2 son's who live by and are very involved and supportive. [place]'s dnl manages medications and prefills med box's weekly for . Family prepares meals for as well. Nadine has a hx of IDDM is followed by Dr Slater, CKD and is followed by Dr Jaimes. BG poorly controlled. Nadine does not always follow dietary reccomendations and eats mostly prepared frozen meals. Education provided but because nadine lives alone this form of food is easier for him to prepare. A1C increased to 7.7 Insulin doses adjusted to (aspart //6 and glargine 16 units daily)and is on Empagliflozin 25mg po daily. [place] with a hx of chronic back pain most recently with a report of increased pain. He recently had a physical with Dr Yeager who ordered an MRI that showed spinal stenosis and compression in the lumbar region. Nadine has been evaluated by Dr Gracia is not a surgical candidate at this time. He was referred to [facility] for injection. Currently, nadine reports to taking Tylenol 500mg 2 tabs twice a day with minimal relief. The pain resolves . Nadine's gait is slightly unsteady at times. He uses a walker when he leaves the home. Around the house he will use the cane. He has reported a recent fall with minor injury. [place] with a hx of CAD is followed by Dr Sewell webfed offset press operator.Recent Echo performed .Request records. [place]'s bp has been running higher than ususal back to baseline with the increase in Lisinopril doseage. Vit D 17ng/ml with current doseage of 50mcg daily. WHAT MATTERS What Matters was addressed at this visit. Comment: to stay at home as long as I can MEDICATION Medications were addressed at this visit. Comment: Med rec performed by PCP. Meds reviewed each visit . DNL manages meds MENTATION Depression was addressed at this visit. Comment: Lonely. Denies any S.I. family supportive. Followed by RETAIL PROPERTY MANAGER MENTATION Dementia was addressed at this visit. Comment: AOX3 forgetful at times. MENTATION Delirium was addressed at this visit. Comment: No sx noted MOBILITY -------- Mobility was addressed at this visit. Comment: Gait sl steady. Use of cane and walker. Free from falls. [place] is followed by Dr Chacon =Podiatry Dr Schumacher =Opthomologist Dr Yeager =community provider Dr Sewell=Tv Technician [place] receives 12 hrs of [employer] hrs through [employer] to assist with adls and Iadls. [place]'s goal is to live at home as long as possible. Continue to provide comprehensive medical care in the home. Assess for ss of depression, coping, home safety. [place] has ongoing complex medical needs and benefits from [facility] interdisciplinary management. [place] and cg are included in decision making. All questions answered, education regarding medication, and disease mgt reinforced with who verbalizes understanding. [place] will be free from falls, infection, and hospitalizations over the next 90 days. PLAN OF CARE REVIEWED WITH IDT TEAM /genoveva/ Millie MEEHAN HB crane operator Signed: 04/27/2024 09:29 04/27/2024 ADDENDUM STATUS: COMPLETED Plan of care reviewed with IDT /genoveva/ Millie MEEHAN HB crane operator Signed: 04/27/2024 10:38 Receipt Acknowledged By: * AWAITING SIGNATURE * LIZBETHCATHYJHONNY * AWAITING SIGNATURE * MALGORZATA LIANG * AWAITING SIGNATURE * LATIAMARQUESEDEN MYERS 04/27/2024 11:11 /genoveva/ PADMA URIBE [facility] Clinical Pharmacist Practitioner 04/27/2024 10:51 /genoveva/ OVIDIO [address], [facility] REGISTERED DIETITIAN 04/27/2024 10:46 /genoveva/ RICHARD BAZZI [facility] Supervisor [place] 04/27/2024 10:56 /es/ Clotilde Arthur [facility] Occupational Therapist * AWAITING SIGNATURE * CASSANDRA FERRELL * AWAITING SIGNATURE * AMAN RASCON * AWAITING SIGNATURE * TERRANCE WALLER 04/27/2024 ADDENDUM STATUS: COMPLETED Supervisor [place] is available for psychosocial support as needed. Annual assessment to be conducted November 2024 unless otherwise indicated. /eliz BAZZI WASHATERIA ATTENDANT [facility] Supervisor [place] Signed: 04/27/2024 10:47 04/27/2024 ADDENDUM STATUS: COMPLETED discussed at IDT meeting. Patient was last seen in person by [facility] dietitian on 01/30/24. Plan: 1. Follow-up visit: annually or sooner as needed if change in condition 2. Monitor progress toward achievement of Nutrition Intervention Goals 3. Assess comprehension and motivation based on dietary changes made 4. Monitor progress toward achievement of Clinical Outcome Goals: Weight, Labs, Skin integrity, Oral Intake 5. Follow for clinical issues at IDT meetings and with quarterly chart review. /genoveva/ OVIDIO LOW[address], [place] REGISTERED DIETITIAN Signed: 04/27/2024 10:51 04/27/2024 ADDENDUM STATUS: COMPLETED No [facility] rehab needs identified at this time; will follow up with annually and as need arises for change in function. /eliz Arthur [facility] Occupational Therapist Signed: 04/27/2024 10:56 04/27/2024 ADDENDUM STATUS: COMPLETED Will continue to review medication regimen quarterly. /eliz URIBE [facility] Clinical Pharmacist Practitioner Signed: 04/27/2024 11:12 MILLIE DAVENPORT CNTRL [facility]
--- OUTSIDE RECORDS SUMMARY | 2024-07-04 16:12 | XMS_ITS | Encounter Summary ---
Author Name [facility] [place] [facility] [place] [facility] [place] [facility] [place] Address [address] [place] [address] Care Team Providers Care Flight Test Engineer Name Role Phone ROBERT DAVIS Primary Care Provider Unav ailable RICHARD BAZZI Unavailable Unavailable CASSANDRA FERRELL Unavailable Unavailable KELSEA JO Unavailable Unavailable MONSE DUBON Unavailable Unavailable MILLIE DAVENPORT Unavailable Unavailable DARSHAN OLIVERA Unavailable Unavailable СЕРГЕЙ, JENS Unavailable Unavailable PADMA MIMS Unavailable Unavailable Insurance Providers: All historical and [...] O MEDEX BRONZ E Jun 06, 2001 [id number] [place] PATIENT [place] ([place] MEDICARE SUPPLEMEN BHARGAVI PSUED O MEDEX BRONZ E Jun 06, 2001 [id number] [place] PATIENT [place] MED[place] SUPPLEMEN BHARGAVI MEDEX BRONZ E Jun 06, 2001 [id number] [place] PAT[place] SUPPLEMEN BHARGAVI PSUED O MEDEX BRONZ E Jun 06, 2001 [id number] HUDRACHEL BOYER [place] PAT[place] SUPPLEMEN [place]ARG[place] PSUED O MEDEX BRONZ E Jun 06, 2001 [id number] HUDOCK,RACHEL OMAS PATIENT MEDICARE (WNR) MEDICARE (M) PART A May 07, 2001 PART A [id number] HUDOCK,TH OMAS PATIENT MEDICARE (WNR) MEDICARE (M) PART B May 07, 2001 PART B [id number] HUDOCK,RACHEL OMAS PATIENT MEDICARE (WNR) MEDICARE (M) PART A May 07, 2001 PART A [id number] HUDOCK,RACHEL OMAS PATIENT MEDICARE (WNR) MEDICARE (M) PART B May 07, 2001 PART B [id number] HUDOCK,RACHEL OMAS PATIENT MEDICARE (WNR) MEDICARE () PART A May 07, 2001 PART A [id number] HUDOCK,RACHEL OMAS PATIENT MEDICARE (WNR) MEDICARE (M) PART B May 07, 2001 PART B [id number] HUDOCK,RACHEL OMAS PATIENT MEDICARE (WNR) MEDICARE (M) PART A May 07, 2001 PART A [id number] HUDOCK,RACHEL OMAS PATIENT MEDICARE (WNR) MEDICARE (M) PART B May 07, 2001 PART B [id number] ([id number] HUDMERLIN,RACHEL OMAS PATIENT Selected Encounter This section includes the information on record at [place] for the Encounter. Date/Time Encounter Type Encounter Description Reason Provider Source May 04, 2024 01:00 PM MEASURE BLOOD OXYGEN LEVEL [facility] Nursing (RN / LP) ICD-10-CM I35.0 Nonrheumatic aortic (valve) stenosis MILLIE DAVENPORT Mallory Encounter Template Text not used by [place] Assessments - Encounter Diagnoses This section includes the primary and secondary diagnoses documented for the Encounter. Date/Time Primary/Secondary Diagnosis Diagnosis Name Provider Source May 04, 2024 04:37 PM PRIMARY Nonrheumatic aortic (valve) stenosis MILLIE DAVENPORT [place] [facility] [place] [facility] May 04, 2024 04:37 PM SECONDARY Essential (primary) hypertension MILLIE DAVENPORT [facility] May 04, 2024 04:37 PM SECONDARY Other chronic pain MILLIE DAVENPORT [facility] May 04, 2024 04:37 PM SECONDARY Type 2 diabetes mellitus with diabetic polyneuropathy MILLIE DAVENPORT [facility] May 04, 2024 04:37 PM SECONDARY Type 2 diabetes mellitus without complications MILLIE DAVENPORT [facility] Plan of Treatment: Future Appointments (+ 6 months) and Future Tests (+/- 45 days) The Plan of Treatment section includes future care activities for the patient from all [place] [facility]. This section includes future appointments and future orders which are active, pending or scheduled. Future Appointments This section includes appointments that were scheduled to occur 6 months from the date of the Encounter, up to a maximum of 20 appointments. The data comes from all [facility]. Appointment Date/Time Appointment Type Appointme nt Facility Name May 08, 2024 08:00 AM [facility] Jul 13, 2024 11:00 AM [facility] Oct 07, 2024 11:00 AM [facility] Active, Pending, and Scheduled Orders This section includes a listing of several types of active, pending, and scheduled orders, including clinic medications orders, diagnostic test orders, procedure orders and consult orders; where the start date of the order is 45 days before the date of the Encounter or 45 days after the date of theEncounter. The data comes from all [facility]. Test Date/Time Test Type Test Details Facility Name Apr 07, 2024 04:04 PM Consult Order [facility] NON-SKILLED HOME HEALTH AIDE Cons Entry Driver Operator's Choice [facility] Vital Signs: All taken on the encounter date This section contains inpatient and outpatient Vital Signs collected on the date of the Encounter. Date/Time Temperature Pulse Blood Pressure Respiratory Rate SP02 Pain Height Weight Body Mass Index Source May 04, 2024 01:00 PM 98.9 82 142/82 18 99 6 154.7 23 [place] [facility] [facility] Social History: Smoking Status (Most current) [...] 17, 2023 08:31 AM VA-TOBACCO FORMER USER [facility] Tobacco Use History This section includes a history of the smoking, or tobacco-related health factors, that were collected on or before the date of the Encounter. The data comes from the [place] facility where the Encounter took place. Date/Time Smoking Status/Tobac co Use Comment Facility November 17, 2023 08:31 AM VA-TOBACCO QUIT 15 YRS OR MORE [place] [facility] [facility] May 07, 2022 09:00 AM VA-TOBACCO FORMER USER [place] [facility] [place] [facility] May 07, 2022 09:00 AM VA-TOBACCO QUIT 15 YRS OR MORE [place] [facility] [place] [facility] May 21, 2021 08:00 AM VA-TOBACCO FORMER USER [place] [facility] [place] [facility] May 21, 2021 08:00 AM VA-TOBACCO QUIT 15 YRS OR MORE [place] [facility] [place] [facility] Apr 24, 2020 11:00 AM VA-TOBACCO FORMER USER [place] [facility] [place] [facility] Apr 24, 2020 11:00 AM VA-TOBACCO QUIT 15 YRS OR MORE [place] [facility] [place] [facility] Jan 15, 2018 10:57 AM QUIT TOBACCO USE > 7 YEARS AGO [place] [facility] [facility] Dec 10, 2016 08:53 AM QUIT TOBACCO USE > 7 YEARS AGO [place] [facility] Jul 19, 2015 10:22 AM QUIT TOBACCO USE > 7 YEARS AGO Quit about 40 years ago. [place] [facility] [facility] November 14, 2004 10:00 AM HISTORY OF SMOKING [place] [facility] [place] [facility] November 14, 2004 10:00 AM LIFETIME NON-SMOKER [facility] Oct 25, 2003 10:34 AM HISTORY OF SMOKING [facility] Oct 07, 2002 09:41 AM HISTORY OF SMOKING [facility] Nov 03, 2001 10:31 AM QUIT TOBACCO USE > 7 YEARS AGO [facility] Jul 31, 2001 02:15 PM NON-TOBACCO USER Quit 20 yrs ago [facility] Advance Directives: All historical and current [...] Provider Source Jul 03, 2023 ADVANCE DIRECTIVE [facility] Encounter Notes: All associated encounter notes This section contains the clinical notes associated to the Encounter. Date/Time Encounter Note(s) Provider Source May 05, 2024 08:56 AM ADDENDUM: LOCAL TITLE: Addendum STANDARD TITLE: ADDENDUM DATE OF NOTE: MAY 05, 2024@08:56:43 ENTRY DATE: MAY 05, 2024@08:56:44 AUTHOR: ASHLEIGH DAVIS COSIGNER: URGENCY: STATUS: COMPLETED Corretion was on PPI when had low B12. Will hold for now and periodically follow B12. Will continue resumption if B12 levels are suboptimal. /genoveva/ ROBERT DAVIS RN,MSN,MAP MAKER-C [facility] NURSE PRACTITIONER Signed: 05/05/2024 08:57 Receipt Acknowledged By: 05/05/2024 09:01 /genoveva/ Millie MEEHAN [facility] automobile washer steam --- Original Document --- 05/04/24 HB RN PROGRESS NOTE: Nursing Progress Note [...] CHOLECALCIF 50MCG (D3-2,000UNIT) TAB TAKE ONE TABLET ACTIVE BY MOUTH ONCE DAILY FOR VITAMIN SUPPLEMENTATION [...] BY MOUTH TWICE A WEEK ACTIVE NEEDED 3) Non-VA MULTIVITAMIN/MINERALS CAP/TAB 1 [...] home: 30min Problem addressed for this visit: Chronic pain, DM NURSING SUMMARY:Rn performed in home visit at [place]'s home for assessment of chronic disease mgt, CVCP Rn performed in home visit assessment, medication reviewed with oversight, RN visit performed in pain mgt, skin assessment, coping and home safety. is alert, oriented. Pleasant. Wearing Diabetic socks without shoes. Reinforced fall prevention with as well as the importance of wearing properly fitting shoes being diabetic. [place] donned properly fitting slippers. Gait is unsteady. Nadine is a high fall risk. [place] reports to using the Walker from the bathroom to the bedroom. He will use the cane when he leaves the home. Requires supervision when he leaves the home. Inquired how often [place] takes his insulin. He verbalizes that he administers the Novolog three times a day . 5ux with breakfast, 3ux with lunch and 6 ux with dinner. states that he does administer Lantus 15ux daily. [place] does honestly admit to eating foods higher in CBO. He will eat a toaster pastry for breakfast, sandwich for lunch, left overs for dinner or prepared meal and always eats a desert after dinner. Pie, Cookies, Cakes . Will alert Padma Quiñones who is following Diabetic mgt. A1C 7.7. Fasting BG 223 . 7 d avg 194, 14d 197, 28d avg 210. [place] c.o Back pain. Reports that his back pain is 2/10 at rest. Upon awakening in the morning his pain is the worse. Sharp pain 10/10. Has pain 6-7/ 10 with ambulation and when he turns from side to side in bed. [place] was taking Advil and switched to Tylenol 650mg 1 tablet twice daily for the pain with minimal relief. He has an appt with [facility] for Cortisone injection on May 10. [place] denies any ss of depression or anxiety. He did report that his Dtr n law who assists with medication and meal mgt is in the hospital had an [place] his granddtr has taken over for him. [place] reports to be taking Vit D3 2000ux daily. Started mid Apr. Vit D level 17 in Mar 2024 Blood Pressure: 142/82 (05/04/2024 13:00) Pulse: 82 (05/04/2024 13:00) Respiration: 18 (05/04/2024 13:00) Temperature: 98.9 F [37.2 C] (05/04/2024 13:00) Pain Score: 6 (05/04/2024 13:00)see above note EXAMINATION: Lungs: CTA NAD sats 99% RA denies any sob or cough. None noted Edema: Plus 2 RLE calve down , Plus 1 LLL encouraged elevation of extr. [place] reports edema is not there in the morning encouraged low sodium diet and elevation. HR: Denies any CP or palp Bowel/Bladder: Denies any issues. Abd soft non tender pos bsx 4 Skin: CDI Home Safety Lives alone. Family lives nearby and is involved FALLS NO INFECTIONS NO ER/HOSPITALIZATIONS NO Teaching/goals:[place] has ongoing complex medical needs and benefits from [facility] interdisciplinary management. and cg are included in decision making. All questions answered, education. regarding medications, disease mgt provided. [place] and caregiver verbalize understanding. [place] will be free from falls, infections, and hospitalizations over the next 30 days. Patient verbalizes understanding to above and will call with any concerns or changes in condition. For emergent care call 911. Plan for next visit:May 24 Chronic disease mgt /es/ Millie MEEHAN [facility] automobile washer steam Signed: 05/04/2024 16:37 05/04/2024 ADDENDUM STATUS: COMPLETED Alerting Padma Mims Pharm D to note /eliz MEEHAN [facility] automobile washer steam Signed: 05/04/2024 16:38 Receipt Acknowledged By: * AWAITING SIGNATURE * PADMA MIMS 05/04/2024 ADDENDUM STATUS: COMPLETED [place] is taking Vitamin B12 po daily. Script back in November 2023 will alert provider. Should still be taking Vit B12? /eliz MEEHAN [facility] automobile washer steam Signed: 05/04/2024 16:48 Receipt Acknowledged By: * AWAITING SIGNATURE * PADMA MIMS 05/05/2024 08:16 /genoveva/ ROBERT DAVIS RN,MSN,MAP MAKER-C [facility] NURSE PRACTITIONER 05/05/2024 ADDENDUM STATUS: COMPLETED noted low B12 back in 2009 w improved levels w B12. Will renew /genoveva/ ROBERT DAVIS RN,MSN,MAP MAKER-C [facility] NURSE PRACTITIONER Signed: 05/05/2024 08:16 [facility] May 04, 2024 04:47 PM ADDENDUM: LOCAL TITLE: Addendum STANDARD TITLE: ADDENDUM DATE OF NOTE: MAY 04, 2024@16:47:33 ENTRY DATE: MAY 04, 2024@16:47:33 AUTHOR: MILLIE DAVENPORT EXP COSIGNER: URGENCY: STATUS: COMPLETED is taking Vitamin B12 po daily. Script back in November 2023 will alert provider. Should [place] still be taking Vit B12? /eliz MEEHAN [facility] automobile washer steam Signed: 05/04/2024 16:48 Receipt Acknowledged By: 05/05/2024 09:09 /genoveva/ PADMA MIMS HB Clinical Pharmacist Practitioner 05/05/2024 08:16 /genoveva/ ROBERT DAVIS RN,MSN,MAP MAKER-C HB NURSE PRACTITIONER --- Original Document --- 05/04/24 HB RN PROGRESS NOTE: Nursing Progress Note [...] CHOLECALCIF 50MCG (D3-2,000UNIT) TAB TAKE ONE TABLET ACTIVE BY MOUTH ONCE DAILY FOR VITAMIN SUPPLEMENTATION [...] BY MOUTH TWICE A WEEK ACTIVE NEEDED 3) Non-VA MULTIVITAMIN/MINERALS CAP/TAB 1 [...] in patient's home at time of visit. [place] identified by: Full Name, Address Length of visit in home: 30min Problem addressed for this visit: Chronic pain, DM NURSING SUMMARY:Rn performed in home visit at 's home for assessment of chronic disease mgt, CVCP Rn performed in home visit assessment, medication reviewed with oversight, RN visit performed in pain mgt, skin assessment, coping and home safety. is alert, oriented. Pleasant. Wearing Diabetic socks without shoes. Reinforced fall prevention with as well as the importance of wearing properly fitting shoes being diabetic. donned properly fitting slippers. Gait is unsteady. is a high fall risk. [place] reports to using the Walker from the bathroom to the bedroom. He will use the cane when he leaves the home. Requires supervision when he leaves the home. Inquired how often takes his insulin. He verbalizes that he administers the Novolog three times a day . 5ux with breakfast, 3ux with lunch and 6 ux with dinner. [place] states that he does administer Lantus 15ux daily. [place] does honestly admit to eating foods higher in CBO. He will eat a toaster pastry for breakfast, sandwich for lunch, left overs for dinner or prepared meal and always eats a desert after dinner. Pie, Cookies, Cakes . Will alert Padma Quiñones who is following Diabetic mgt. A1C 7.7. Fasting BG 223 . 7 d avg 194, 14d 197, 28d avg 210. [place] c.o Back pain. Reports that his back pain is 2/10 at rest. Upon awakening in the morning his pain is the worse. Sharp pain 10/10. Has pain 6-7/ 10 with ambulation and when he turns from side to side in bed. [place] was taking Advil and switched to Tylenol 650mg 1 tablet twice daily for the pain with minimal relief. He has an appt with [facility] for Cortisone injection on May 10. denies any ss of depression or anxiety. He did report that his Dtr n law who assists with medication and meal mgt is in the hospital had an [place] his granddtr has taken over for him. reports to be taking Vit D3 2000ux daily. Started mid Apr. Vit D level 17 in Mar 2024 Blood Pressure: 142/82 (05/04/2024 13:00) Pulse: 82 (05/04/2024 13:00) Respiration: 18 (05/04/2024 13:00) Temperature: 98.9 F [37.2 C] (05/04/2024 13:00) Pain Score: 6 (05/04/2024 13:00)see above note EXAMINATION: Lungs: CTA NAD sats 99% RA denies any sob or cough. None noted Edema: Plus 2 RLE calve down , Plus 1 LLL encouraged elevation of extr. reports edema is not there in the morning encouraged low sodium diet and elevation. HR: Denies any CP or palp Bowel/Bladder: Denies any issues. Abd soft non tender pos bsx 4 Skin: CDI Home Safety Lives alone. Family lives nearby and is involved FALLS NO INFECTIONS NO ER/HOSPITALIZATIONS NO Teaching/goals: has ongoing complex medical needs and benefits from [facility] interdisciplinary management. [place] and cg are included in decision making. All questions answered, education. regarding medications, disease mgt provided. [place] and caregiver verbalize understanding. [place] will be free from falls, infections, and hospitalizations over the next 30 days. Patient verbalizes understanding to above and will call with any concerns or changes in condition. For emergent care call 911. Plan for next visit:May 24 Chronic disease mgt /es/ Millie MEEHAN [facility] automobile washer steam Signed: 05/04/2024 16:37 05/04/2024 ADDENDUM STATUS: COMPLETED Alerting Padma Mims Pharm D to note /eliz MEEHAN HBSON automobile washer steam Signed: 05/04/2024 16:38 Receipt Acknowledged By: 05/05/2024 09:09 /genoveva/ PADMA MIMS HBSON Clinical Pharmacist Practitioner 05/05/2024 ADDENDUM STATUS: COMPLETED noted low B12 back in 2009 w improved levels w B12. Will renew /genoveva/ ROBERT DAVIS RN,MSN,MAP MAKER-C HB NURSE PRACTITIONER Signed: 05/05/2024 08:16 05/05/2024 ADDENDUM STATUS: COMPLETED Corretion was on PPI when had low B12. Will hold for now and periodically follow B12. Will continue resumption if B12 levels are suboptimal. /genoveva/ ROBERT DAVIS RN,MSN,MAP MAKER-C HB NURSE PRACTITIONER Signed: 05/05/2024 08:57 Receipt Acknowledged By: 05/05/2024 09:01 /eliz MEEHAN HBSON automobile washer steam MILLIE DAVENPORT [facility] May 04, 2024 04:37 PM ADDENDUM: LOCAL TITLE: Addendum STANDARD TITLE: ADDENDUM DATE OF NOTE: MAY 04, 2024@16:37:59 ENTRY DATE: MAY 04, 2024@16:37:59 AUTHOR: MILLIE DAVENPORT EXP COSIGNER: URGENCY: STATUS: COMPLETED Alerting Padma Mims Pharm D to evie /eliz MEEHAN HBSON automobile washer steam Signed: 05/04/2024 16:38 Receipt Acknowledged By: 05/05/2024 09:09 /genoveva/ PADMA MIMS [facility] Clinical Pharmacist Practitioner --- Original Document --- 05/04/24 [facility] RN PROGRESS NOTE: Nursing Progress Note [...] CHOLECALCIF 50MCG (D3-2,000UNIT) TAB TAKE ONE TABLET ACTIVE BY MOUTH ONCE DAILY FOR VITAMIN SUPPLEMENTATION [...] BY MOUTH TWICE A WEEK ACTIVE NEEDED 3) Non-VA MULTIVITAMIN/MINERALS CAP/TAB 1 [...] in patient's home at time of visit. [place] identified by: Full Name, Address Length of visit in home: 30min Problem addressed for this visit: Chronic pain, DM NURSING SUMMARY:Rn performed in home visit at 's home for assessment of chronic disease mgt, CVCP Rn performed in home visit assessment, medication reviewed with oversight, RN visit performed in pain mgt, skin assessment, coping and home safety. is alert, oriented. Pleasant. Wearing Diabetic socks without shoes. Reinforced fall prevention with as well as the importance of wearing properly fitting shoes being diabetic. [place] donned properly fitting slippers. Gait is unsteady. [place] is a high fall risk. reports to using the Walker from the bathroom to the bedroom. He will use the cane when he leaves the home. Requires supervision when he leaves the home. Inquired how often takes his insulin. He verbalizes that he administers the Novolog three times a day . 5ux with breakfast, 3ux with lunch and 6 ux with dinner. [place] states that he does administer Lantus 15ux daily. does honestly admit to eating foods higher in CBO. He will eat a toaster pastry for breakfast, sandwich for lunch, left overs for dinner or prepared meal and always eats a desert after dinner. Pie, Cookies, Cakes . Will alert Padma Quiñones who is following Diabetic mgt. A1C 7.7. Fasting BG 223 . 7 d avg 194, 14d 197, 28d avg 210. c.o Back pain. Reports that his back pain is 2/10 at rest. Upon awakening in the morning his pain is the worse. Sharp pain 10/10. Has pain 6-7/ 10 with ambulation and when he turns from side to side in bed. was taking Advil and switched to Tylenol 650mg 1 tablet twice daily for the pain with minimal relief. He has an appt with [facility] for Cortisone injection on May 10. [place] denies any ss of depression or anxiety. He did report that his Dtr n law who assists with medication and meal mgt is in the hospital had an [place] his granddtr has taken over for him. [place] reports to be taking Vit D3 2000ux daily. Started mid Apr. Vit D level 17 in Mar 2024 Blood Pressure: 142/82 (05/04/2024 13:00) Pulse: 82 (05/04/2024 13:00) Respiration: 18 (05/04/2024 13:00) Temperature: 98.9 F [37.2 C] (05/04/2024 13:00) Pain Score: 6 (05/04/2024 13:00)see above note EXAMINATION: Lungs: CTA NAD sats 99% RA denies any sob or cough. None noted Edema: Plus 2 RLE calve down , Plus 1 LLL encouraged elevation of extr. reports edema is not there in the morning encouraged low sodium diet and elevation. HR: Denies any CP or palp Bowel/Bladder: Denies any issues. Abd soft non tender pos bsx 4 Skin: CDI Home Safety Lives alone. Family lives nearby and is involved FALLS NO INFECTIONS NO ER/HOSPITALIZATIONS NO Teaching/goals:[place] has ongoing complex medical needs and benefits from [facility] interdisciplinary management. and cg are included in decision making. All questions answered, education. regarding medications, disease mgt provided. and caregiver verbalize understanding. will be free from falls, infections, and hospitalizations over the next 30 days. Patient verbalizes understanding to above and will call with any concerns or changes in condition. For emergent care call 911. Plan for next visit:May 24 Chronic disease mgt /genoveva/ Millie AMADO automobile washer steam Signed: 05/04/2024 16:37 05/04/2024 ADDENDUM STATUS: COMPLETED is taking Vitamin B12 po daily. Script back in November 2023 will alert provider. Should still be taking Vit B12? /genoveva/ Millie Keswick BSN [facility] automobile washer steam Signed: 05/04/2024 16:48 Receipt Acknowledged By: 05/05/2024 09:09 /es/ PADMA MIMS [facility] Clinical Pharmacist Practitioner 05/05/2024 08:16 /es/ ROBERT DAVIS RN,MSN,MAP MAKER-C HB NURSE PRACTITIONER 05/05/2024 ADDENDUM STATUS: COMPLETED noted low B12 back in 2009 w improved levels w B12. Will renew /genoveva/ ROBERT DAVIS RN,MSN,MAP MAKER-C HB NURSE PRACTITIONER Signed: 05/05/2024 08:16 05/05/2024 ADDENDUM STATUS: COMPLETED Corretion was on PPI when had low B12. Will hold for now and periodically follow B12. Will continue resumption if B12 levels are suboptimal. /genoveva/ ROBERT DAVIS RN,MSN,MAP MAKER-C HB NURSE PRACTITIONER Signed: 05/05/2024 08:57 Receipt Acknowledged By: 05/05/2024 09:01 /genoveva/ Millie MEEHAN [facility] automobile washer steam MILLIE DAVENPORT [facility] May 04, 2024 04:23 PM [facility] NURSING NOTE: LOCAL TITLE: [facility] RN PROGRESS NOTE STANDARD TITLE: [facility] NURSING NOTE DATE OF NOTE: MAY 04, 2024@16:23 ENTRY DATE: MAY 04, 2024@16:23:19 AUTHOR: MILLIE DAVENPORT EXP COSIGNER: URGENCY: STATUS: [...] CHOLECALCIF 50MCG (D3-2,000UNIT) TAB TAKE ONE TABLET ACTIVE BY MOUTH ONCE DAILY FOR VITAMIN SUPPLEMENTATION [...] BY MOUTH TWICE A WEEK ACTIVE NEEDED 3) Non-VA MULTIVITAMIN/MINERALS CAP/TAB 1 [...] home: 30min Problem addressed for this visit: Chronic pain, DM NURSING SUMMARY:Rn performed in home visit at [place]'s home for assessment of chronic disease mgt, CVCP Rn performed in home visit assessment, medication reviewed with oversight, RN visit performed in pain mgt, skin assessment, coping and home safety. [place] is alert, oriented. Pleasant. Wearing Diabetic socks without shoes. Reinforced fall prevention with [place]ine as well as the importance of wearing properly fitting shoes being diabetic. donned properly fitting slippers. Gait is unsteady. [place] is a high fall risk. [place] reports to using the Walker from the bathroom to the bedroom. He will use the cane when he leaves the home. Requires supervision when he leaves the home. Inquired how often Nadine takes his insulin. He verbalizes that he administers the Novolog three times a day . 5ux with breakfast, 3ux with lunch and 6 ux with dinner. Nadine states that he does administer Lantus 15ux daily. Nadine does honestly admit to eating foods higher in CBO. He will eat a toaster pastry for breakfast, sandwich for lunch, left overs for dinner or prepared meal and always eats a desert after dinner. Pie, Cookies, Cakes . Will alert Padma Quiñones who is following Diabetic mgt. A1C 7.7. Fasting BG 223 . 7 d avg 194, 14d 197, 28d avg 210. Nadine c.o Back pain. Reports that his back pain is 2/10 at rest. Upon awakening in the morning his pain is the worse. Sharp pain 10/10. Has pain 6-7/ 10 with ambulation and when he turns from side to side in bed. Nadine was taking Advil and switched to Tylenol 650mg 1 tablet twice daily for the pain with minimal relief. He has an appt with [facility] for Cortisone injection on May 10. Nadine denies any ss of depression or anxiety. He did report that his Dtr n law who assists with medication and meal mgt is in the hospital had an [place] his granddtr has taken over for him. Nadine reports to be taking Vit D3 2000ux daily. Started mid Apr. Vit D level 17 in Mar 2024 Blood Pressure: 142/82 (05/04/2024 13:00) Pulse: 82 (05/04/2024 13:00) Respiration: 18 (05/04/2024 13:00) Temperature: 98.9 F [37.2 C] (05/04/2024 13:00) Pain Score: 6 (05/04/2024 13:00)see above note EXAMINATION: Lungs: CTA NAD sats 99% RA denies any sob or cough. None noted Edema: Plus 2 RLE calve down , Plus 1 LLL encouraged elevation of extr. [place] reports edema is not there in the morning encouraged low sodium diet and elevation. HR: Denies any CP or palp Bowel/Bladder: Denies any issues. Abd soft non tender pos bsx 4 Skin: CDI Home Safety Lives alone. Family lives nearby and is involved FALLS NO INFECTIONS NO ER/HOSPITALIZATIONS NO Teaching/goals: has ongoing complex medical needs and benefits from [facility] interdisciplinary management. and cg are included in decision making. All questions answered, education. regarding medications, disease mgt provided. and caregiver verbalize understanding. [place] will be free from falls, infections, and hospitalizations over the next 30 days. Patient verbalizes understanding to above and will call with any concerns or changes in condition. For emergent care call 911. Plan for next visit:May 24 Chronic disease mgt /genoveva/ Millie MEEHAN [facility] automobile washer steam Signed: 05/04/2024 16:37 05/04/2024 ADDENDUM STATUS: COMPLETED Alerting Padma Mims Pharm D to note /eliz MEEHAN [facility] automobile washer steam Signed: 05/04/2024 16:38 Receipt Acknowledged By: * AWAITING SIGNATURE * PADMA MIMS 05/04/2024 ADDENDUM STATUS: COMPLETED [place] is taking Vitamin B12 po daily. Script back in November 2023 will alert provider. Should still be taking Vit B12? /eliz MEEHAN [facility] automobile washer steam Signed: 05/04/2024 16:48 Receipt Acknowledged By: * AWAITING SIGNATURE * PADMA MIMS 05/05/2024 08:16 /genoveva/ ROBERT DAVIS RN,MSN,MAP MAKER-C [facility] NURSE PRACTITIONER 05/05/2024 ADDENDUM STATUS: COMPLETED noted low B12 back in 2009 w improved levels w B12. Will renew /es/ ROBERT DAVIS RN,MSN,MAP MAKER-C [facility] NURSE PRACTITIONER Signed: 05/05/2024 08:16 05/05/2024 ADDENDUM STATUS: COMPLETED [place] was on PPI when had low B12. Will hold for now and periodically follow B12. Will continue resumption if B12 levels are suboptimal. /genoveva/ ROBERT DAVIS RN,MSN,MAP MAKER-C HB NURSE PRACTITIONER Signed: 05/05/2024 08:57 Receipt Acknowledged By: 05/05/2024 09:01 /genoveva/ Millie DUENASN [facility] automobile washer steam [facility]IE DAVENPORT [place] [facility]
--- OUTSIDE RECORDS SUMMARY | 2024-07-04 16:12 | XMS_ITS ---
Author Name [facility] Organization [facility] Address [address] [place] [id number] Care Team Providers Care Design Studio Consultant Name Role Phone ROBERT DAVIS Primary Care Provider Unav ailable RICHARD BAZZI Unavailable Unavailable CASSANDRA FERRELL Unavailable Unavailable KELSEA JO Unavailable Unavailable MONSE DUBON Unavailable Unavailable MILLIE DAVENPORT Unavailable Unavailable DARSHAN OLIVEAR Unavailable Unavailable CLOTILDE ARTHUR Unavailable Unavailable PADMA URIBE Unavailable Unavailable Insurance [...] O MEDEX BRONZ E Jun 06, 2001 [id number] [phone] [place] PATIENT ANTHEM BCBS OF [place] (BLUECARD) MEDICARE SUPPLEMEN BHARGAVI PSUED O MEDEX BRONZ E Jun 06, 2001 [id number] [place] SUPPLE[place] BHARGAVI MEDEX BRONZ E Jun 06, 2001 [id number] [phone] [place] BHARGAVI PSUED O MEDEX BRONZ E Jun 06, 2001 [id number] HUDRACHEL BOYER [place] PATIENT BCBS OF [facility] MEDICARE SUPPLEMEN BHARGAVI PSUED O MEDEX BRONZ E Jun 06, 2001 [id number] [phone] HUDOCK,RACHEL OMAS PATIENT MEDICARE (WNR) MEDICARE (M) PART A May 07, 2001 PART A [id number] HUDOCK,RACHEL OMAS PATIENT MEDICARE (WNR) MEDICARE (M) PART B May 07, 2001 PART B [id number] HUDOCK,RACHEL OMAS PATIENT MEDICARE (WNR) MEDICARE (M) PART A May 07, 2001 PART A [id number] ([id number] HUDOCK,RACHEL OMAS PATIENT MEDICARE (WNR) MEDICARE () PART B May 07, 2001 PART B [id number] HUDOCK,RACHEL OMAS PATIENT MEDICARE (WNR) MEDICARE () PART A May 07, 2001 PART A [id number] HUDOCK,RACHEL OMAS PATIENT MEDICARE (WNR) MEDICARE (M) PART B May 07, 2001 PART B [id number] HUDOCK,RACHEL OMAS PATIENT MEDICARE (WNR) MEDICARE () PART A May 07, 2001 PART A [id number] HUDOCK,RACHEL OMAS PATIENT MEDICARE (WNR) MEDICARE (M) PART B May 07, 2001 PART B [id number] HUDOCK,RACHEL OMAS PATIENT Selected Encounter This section includes the information on record at [place] for the Encounter. Date/Time Encounter Type Encounter Description Reason Provider Source Jun 07, 2024 10:00 AM SELF CARE MNGMENT TRAINING [facility] Nursing (RN / LP) ICD-10-CM I10 Essential (primary) hypertension MILLIE DAVENPORT Mallory Encounter Template Text not used by [place] Assessments - Encounter Diagnoses This section includes the primary and secondary diagnoses documented for the Encounter. Date/Time Primary/Secondary Diagnosis Diagnosis Name Provider Source Jun 07, 2024 05:43 PM PRIMARY Essential (primary) hypertension [facility]ILLIE DAVENPORT [facility] Jun 07, 2024 05:43 PM SECONDARY Other chronic pain MILLIE DAVENPORT [facility] Jun 07, 2024 05:43 PM SECONDARY Type 2 diabetes mellitus without complications MILLIE DAVENPORT [facility] Plan of Treatment: Future Appointments (+ 6 months) and Future Tests (+/- 45 days) The Plan of Treatment section includes future care activities for the patient from all [place] [facility]. This section includes future appointments and future orders which are active, pending or scheduled. Future Appointments This section includes appointments that were scheduled to occur 6 months from the date of the Encounter, up to a maximum of 20 appointments. The data comes from all [facility]. Appointment Date/Time Appointment Type Appointme nt Facility Name Jul 13, 2024 11:00 AM AMBULATORY - MEDICINE [facility] Oct 07, 2024 11:00 AM AMBULATORY - MEDICINE [facility] Active, Pending, and Scheduled Orders This section includes a listing of several types of active, pending, and scheduled orders, including clinic medications orders, diagnostic test orders, procedure orders and consult orders; where the start date of the order is 45 days before the date of the Encounter or 45 days after the date of theEncounter. The data comes from all [facility]. Test Date/Time Test Type Test Details Facility Name Jun 24, 2024 02:43 PM Consult Order PROSTHETIC S REQUEST - HISA OUTPT1 Cons Line Maintenance [facility] Vital Signs: All taken on the encounter date This section contains inpatient and outpatient Vital Signs collected on the date of the Encounter. Date/Time Temperature Pulse Blood Pressure Respiratory Rate SP02 Pain Height Weight Body Mass Index Source Jun 07, 2024 10:00 AM 98.8 78 132/78 18 99 6 [facility] Social History: Smoking Status (Most current) [...] took place. Date/Time Current Smoking Status Comment [facility] November 17, 2023 08:31 AM VA-TOBACCO FORMER USER [facility] [place] [facility] Tobacco Use History This section includes a history of the smoking, or tobacco-related health factors, that were collected on or before the date of the Encounter. The data comes from the [place] facility where the Encounter took place. Date/Time Smoking Status/Tobac co Use Comment Facility November 17, 2023 08:31 AM VA-TOBACCO QUIT 15 YRS OR MORE [facility] [place] [facility] May 07, 2022 09:00 AM VA-TOBACCO FORMER USER [facility] [place] [facility] May 07, 2022 09:00 AM VA-TOBACCO QUIT 15 YRS OR MORE [facility] [place] [facility] May 21, 2021 08:00 AM VA-TOBACCO FORMER USER [facility] [place] [facility] May 21, 2021 08:00 AM VA-TOBACCO QUIT 15 YRS OR MORE [facility] [place] [facility] Apr 24, 2020 11:00 AM VA-TOBACCO FORMER USER [facility] [place] [facility] Apr 24, 2020 11:00 AM VA-TOBACCO QUIT 15 YRS OR MORE [facility] [place] [facility] Jan 15, 2018 10:57 AM QUIT TOBACCO USE > 7 YEARS AGO [facility] [place] [facility] Dec 10, 2016 08:53 AM QUIT TOBACCO USE > 7 YEARS AGO [facility] [place] [facility] Jul 19, 2015 10:22 AM QUIT TOBACCO USE > 7 YEARS AGO Quit about 40 years ago. [facility] [place] [facility] November 14, 2004 10:00 AM HISTORY OF SMOKING [facility] [place] [facility] November 14, 2004 10:00 AM LIFETIME NON-SMOKER [facility] [place] [facility] Oct 25, 2003 10:34 AM HISTORY OF SMOKING [facility] [place] [facility] Oct 07, 2002 09:41 AM HISTORY OF SMOKING [facility] [place] [facility] Nov 03, 2001 10:31 AM QUIT TOBACCO USE > 7 YEARS AGO [facility] [place] [facility] Jul 31, 2001 02:15 PM NON-TOBACCO USER Quit 20 yrs ago [facility] Advance Directives: All historical and current [...] Provider Source Jul 03, 2023 ADVANCE DIRECTIVE JLUISRICHARD [facility] Encounter Notes: All associated encounter notes This section contains the clinical notes associated to the Encounter. Date/Time Encounter Note(s) Provider Source Jun 07, 2024 05:20 PM [facility] NURSING NOTE: LOCAL TITLE: [facility] RN PROGRESS NOTE STANDARD TITLE: [facility] NURSING NOTE DATE OF NOTE: JUN 07, 2024@17:20 ENTRY DATE: JUN 07, 2024@17:20:57 AUTHOR: MILLIE DAVENPORT EXP COSIGNER: URGENCY: STATUS: [...] 50MCG (D3-2,000UNIT) TAB TAKE ONE TABLET ACTIVE (S) BY MOUTH ONCE DAILY FOR VITAMIN SUPPLEMENTATION [...] in patient's home at time of visit. [place] identified by: Full Name, Address Length of visit in home: 30min Problem addressed for this visit: HTN NURSING SUMMARY: Rn performed in home visit at 's home for assessment of chronic disease mgt,cvcp assessment, medication reviewed with oversight, pain mgt, skin assessment, coping and home safety. [place] is alert oriented. Reports that his Dtr n law passed 2 weeks ago and he and is family are grieving. Support provided. 's granddtr is taking over his medication mgt. Gaurang's granddtr was present during the visit and all medications were reviewed with both Gaurang and his grandtr. Only discrep is Gaurang reports that Dr Slater changed his Apart doses to 6ux am 3 ux at lunch and 6ux at Dinner and 16ux of Glargine sc. Glucometer readings FBG this am 191. other readings [phone]. Gaurang does report to having sweets at night. Does not follow ADA . Gaurang's diet is high in sodium. He has a hx of HTN. Bilat Edema to Feet. Encouraged limiting foods high in sodium such as canned soups that he eats a few times a week. Encouraged elevation of extremities throughout the day. Gaurang has an appt with Dr Watson his Rack Worker on Jun 10 at 245p [place] requesting for OT to come and eval stairs going to [employer] (needing grab bars) Gaurang enjoys going downstairs to his game room and would like to go dwon there. Clotilde Arthur OT informed and to follow up with Gaurang. Blood Pressure: 132/78 (06/07/2024 10:00) Pulse: 78 (06/07/2024 10:00) Respiration: 18 (06/07/2024 10:00) Temperature: 98.8 F [37.1 C] (06/07/2024 10:00) Pain Score: 6 (06/07/2024 10:00)Describes mid lower back pain chronic ache. L hip pain that radiates down leg. [place] reports pain at rest is a 2/10 and when he stands or puts pressure on his feet pain increases to a 6/10. Gaurang received a cortisone injection from [facility] to back and hip area. [place] reports that the first shot did not help, the second shot worked for 2 days has a appt for follow up next week. reports to taking Tylenol 500mg 1-2 tabs twice daily on occasion with minimal relief. EXAMINATION: Lungs: CTA NAD Edema: plus 2 bilat pedal edema as described above HR: reg Bowel/Bladder: denies any issues abd soft nontender pos bs x 4 Skin: CDI Home Safety lives alone. son visits daily. receives EMERGENCY VEHICLE OPERATOR assistance with adls. FALLS NO INFECTIONS NO ER/HOSPITALIZATIONS NO Teaching/goals: [place] has ongoing complex medical needs and benefits from [facility] interdisciplinary management. and cg are included in decision making. All questions answered, education. regarding medications, disease mgt provided. and caregiver verbalize understanding. [place] will be free from falls, infections, and hospitalizations over the next 30 days. Patient verbalizes understanding to above and will call with any concerns or changes in condition. For emergent care call 911. [place] 6 Chronic disease mgt. /genoveva/ Millie MEEHAN [facility] manager transit Signed: 06/07/2024 17:43 Receipt Acknowledged By: 06/09/2024 08:31 /genoveva/ PADMA URIBE [facility] Clinical Pharmacist Practitioner 06/09/2024 ADDENDUM STATUS: COMPLETED This freelance writer adjusted 's insulin lispro dose to reflect how he is currently taking/tolerating and avoid discrepancies. /genoveva/ PADMA URIBE [facility] Clinical Pharmacist Practitioner Signed: 06/09/2024 08:34 MILLIE DAVENPORT [facility] Jun 07, 2024 10:30 AM PREVENTIVE MEDICIN E NURSING NOTE: LOCAL TITLE: CLINICAL REMINDERS/NURSING STANDARD TITLE: PREVENTIVE MEDICINE NURSING NOTE DATE OF NOTE: JUN 07, 2024@10:30 ENTRY DATE: JUN 08, 2024@10:33:21 AUTHOR: MILLIE DAVENPORT EXP COSIGNER: URGENCY: STATUS: COMPLETED COVID-19 Immunization: Refused Moderna Monovalent COVID-19 vaccine Immunization: COVID-19 (MODERNA), MRNA, LNP-S, PF, 50 MCG/0.5 ML (AGES 12+ YEARS) Refusal Reason: PATIENT DECISION Patient refuses all immunization(s) in the COVID-19 group Date Documented: 06/08/24 10:33 Home Telehealth (CCHT) Referral: Patient declines participation in CCHT Program at this time. /eliz MEEHAN [facility] manager transit Signed: 06/08/2024 10:34 MILLIE DAVENPORT [facility]
--- OUTSIDE RECORDS SUMMARY | 2024-07-04 16:12 | XMS_ITS | Encounter Summary ---
Author Name [facility] [place] [facility] [place] [facility] [place] Address [address] [place] [address] Care Team Providers Care Lead Former Name Role Phone ROBERT DAVIS Primary Care [...] O MEDEX BRONZ E Jun 06, 2001 [id number] OMAS PATIENT ANTHEM BCBS OF [place] (BLUECARD) MEDICARE SUPPLEMEN BHARGAVI PSUED O MEDEX BRONZ E Jun 06, 2001 [id number] [phone] [place] PAT[place] SUPPLEMEN BHARGAVI MEDEX BRONZ E Jun 06, 2001 [id number] [phone] [place] BHARGAV[place] PSUED O MEDEX BRONZ E Jun 06, 2001 [id number] HUDRACHEL BOYER [place] PATIENT [place] SUPPLEMEN BHARGAVI PSUED O MEDEX BRONZ E Jun 06, 2001 [id number] [phone] HUDOCK,TH OMAS PATIENT MEDICARE (WNR) MEDICARE (M) PART A May 07, 2001 PART A [id number] HUDOCK,RACHEL OMAS PATIENT MEDICARE (WNR) MEDICARE (M) PART B May 07, 2001 PART B [id number] ([id number] HUDOCK,RACHEL OMAS PATIENT MEDICARE (WNR) MEDICARE (M) PART A May 07, 2001 PART A [id number] ([id number] HUDOCK,RACHEL OMAS PATIENT MEDICARE (WNR) MEDICARE (M) PART B May 07, 2001 PART B [id number] HUDOCK,RACHEL OMAS PATIENT MEDICARE (WNR) MEDICARE (M) PART A May 07, 2001 PART A [id number] HUDOCK,RACHEL OMAS PATIENT MEDICARE (WNR) MEDICARE (M) PART B May 07, 2001 PART B [id number] ([id number] HUDOCK,RACHEL OMAS PATIENT MEDICARE (WNR) MEDICARE (M) PART A May 07, 2001 PART A [id number] HUDOCK,RACHEL OMAS PATIENT MEDICARE (WNR) MEDICARE (M) PART B May 07, 2001 PART B [id number] HUDMERLIN,RACHEL OMAS PATIENT Selected Encounter This section includes the information on record at [place] for the Encounter. Date/Time Encounter Type Encounter Description Reason Provider Source Jun 23, 2024 10:00 AM [facility]-SERV OF OT,EA 15 MIN [facility] - THERAPIST ICD-10-CM R26.9 Unspecified abnormalities of gait and mobility CLOTILDE ARTHUR Encounter Template Text not used by [place] Assessments - Encounter Diagnoses This section includes the primary and secondary diagnoses documented for the Encounter. Date/Time Primary/Secondary Diagnosis Diagnosis Name Provider Source Jun 24, 2024 02:37 PM PRIMARY Unspecified abnormalities of gait and mobility CLOTILDE ARTHUR [facility] Plan of Treatment: Future Appointments (+ 6 months) and Future Tests (+/- 45 days) The Plan of Treatment section includes future care activities for the patient [facility] [place] [facility] This section includes future appointments and future orders which are active, pending or scheduled. Future Appointments This section includes appointments that were scheduled to occur 6 months from the date of the Encounter, up to a maximum of 20 appointments. The data comes from all [facility]. Appointment Date/Time Appointment Type Appointme nt Facility Name Jul 13, 2024 11:00 AM AMBULATORY - MEDICINE [facility] Oct 07, 2024 11:00 AM AMBULATORY MEDICINE [facility] Active, Pending, and Scheduled Orders This section includes a listing of several types of active, pending, and scheduled orders, including clinic medications orders, diagnostic test orders, procedure orders and consult orders; where the start date of the order is 45 days before the date of the Encounter or 45 days after the date of theEncounter. The data comes from all [facility]. Test Date/Time Test Type Test Details Facility Name Jun 24, 2024 02:43 PM Consult Order PROSTHETIC S REQUEST - HISA OUTPT1 Cons Auto Carrier Driver's Choice [facility] Social History: Smoking Status (Most current) and Tobacco Use (All prior to encounter date) This section includes the most current, and the historical, smoking and tobacco- related health factors from the [place] facility where the Encounter took place. Current Smoking Status This section includes the most current smoking, or tobacco-related health factor, from the [place] facility where the Encounter took place. Date/Time Current Smoking Status Comment [facility] it November 17, 2023 08:31 AM VA-TOBACCO FORMER USER [facility] Tobacco Use History This section includes a history of the smoking, or tobacco-related health factors, that were collected on or before the date of the Encounter. The data comes from the [place] facility where the Encounter took place. Date/Time Smoking Status/Tobac co Use Comment Facility November 17, 2023 08:31 AM [place]-TOBACCO QUIT 15 YRS OR MORE [facility] May 07, 2022 09:00 AM VA-TOBACCO FORMER USER [place] [facility] [place] [facility] May 07, 2022 09:00 AM VA-TOBACCO QUIT 15 YRS OR MORE [place] [facility] [place] [facility] May 21, 2021 08:00 AM VA-TOBACCO FORMER USER [place] [facility] [place] [facility] May 21, 2021 08:00 AM VA-TOBACCO QUIT 15 YRS OR MORE [place] [facility] [place] [facility] Apr 24, 2020 11:00 AM VA-TOBACCO FORMER USER [place] [facility] [place] [facility] Apr 24, 2020 11:00 AM VA-TOBACCO QUIT 15 YRS OR MORE [place] [facility] [place] [facility] Jan 15, 2018 10:57 AM QUIT TOBACCO USE > 7 YEARS AGO [place] [facility] [place] [facility] Dec 10, 2016 08:53 AM QUIT TOBACCO USE > 7 YEARS AGO [place] [facility] [place] [facility] Jul 19, 2015 10:22 AM QUIT TOBACCO USE > 7 YEARS AGO Quit about 40 years ago. [place] [facility] [place] [facility] November 14, 2004 10:00 AM HISTORY OF SMOKING [place] [facility] [place] [facility] November 14, 2004 10:00 AM LIFETIME NON-SMOKER [place] [facility] [place] [facility] Oct 25, 2003 10:34 AM HISTORY OF SMOKING [place] [facility] [place] [facility] Oct 07, 2002 09:41 AM HISTORY OF SMOKING [place] [facility] [place] [facility] Nov 03, 2001 10:31 AM QUIT TOBACCO USE > 7 YEARS AGO [place] [facility] [place] [facility] Jul 31, 2001 02:15 PM NON-TOBACCO USER Quit 20 yrs ago [place] [facility] [place] [facility] Advance Directives: All historical and current Section Date Range: From patient's date of to the date document was created. This section includes ALL of a patient's completed or amended [place] Advance and Rescinded Directives. The entries below indicate that a directive exists for the patient, but an actual copy is not included with this document. The data comes from all [place] facilities. Date Advance Directives Provider Source Jul 03, 2023 ADVANCE DIRECTIVE RICHARD BAZZI [place] [facility] Encounter Notes: All associated encounter notes This section contains the clinical notes associated to the Encounter. 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 He has been unable to safely navigate the stairs with only one rail. He has previously declined assessment for stair glide and has not been interested in exploring [employer]. He continues to decline stair glide but would like to learn more about [employer]. Will request application be mailed to . He has a friend who he feels could assist him with installing a railing. Also strongly encouraged to install 2 grab bars near entry sin to kitchen which he has declined in the past,, He is now open to this idea. EDUCATION: regarding stair safety, HISA anne , stair glide GOALS: will: 1). receive [employer] application for stair railing OR have stair glide assessment (preferred by this clinician). 2). receive and use grab bars at transition step from breezeway to kitchen. Plan: OT 1-3 visits for follow up with modifications as noted above. Continued assessment of home safety and equipment needs. /genoveva/ Clotilde Arthur [facility] Occupational Therapist Signed: 06/24/2024 14:38 CLOTILDE ARTHUR [place] [facility]
--- OUTSIDE RECORDS SUMMARY | 2024-07-04 16:13 | XMS_ITS ---
Author Organization Melquiades Chan MD Address [address] [place] [phone] Care Team Providers Care Suction Plate Carrier Cleaner Name Role Phone Dustin Melquiades Primary Care Provider [phone] REASON FOR VISIT HCC Codes outstanding Encounters Encounter Location Date Provider Diagnosis Melquiades Chan MD [address] [place], [place] [phone] 03/09/2024 Melquiades Chan PLAN OF TREATMENT No Information
--- OUTSIDE RECORDS SUMMARY | 2024-07-04 16:13 | XMS_ITS ---
Author Organization Melquiades Chan MD Address [address] [place] [phone] Care Team Providers Care Roll Out Manager Name Role Phone Melquiades Chan Primary Care Provider [phone] ALLERGIES No Known Allergies RESULTS Component Value Reference Range Notes Glucose, finger stick Reviewed date:02/27/2024 02:04:49 PM Interpretation: Performing Lab: Notes/Report: Value 245 REASON FOR VISIT 6 month MEDICATIONS Medication SIG (Take, Route, Frequency, Duration) Notes Start Date End Date Status NovoLOG 100 UNIT/ML 5 units Subcutaneous three times a day Active Lasix 20 MG 1 tablet Orally Once a day for 30 day(s) Active tiZANidine HCl 2 MG 1 tablet as needed O rally Three times a day Active Aspir-81 81 MG 1 tablet Orally Once a day for 30 day(s) Active Vitamin B12 1000 MCG 1 tablet Orally Onc e a day for 30 day(s) Active Chlorthalidone 50 MG 1 tablet in the mor farheen with food Orally Once a day for 30 day(s) Active Atorvastatin Calcium 80 MG 1 tablet Oral ly Once a day Active Lisinopril 10 MG 1 tablet Orally Once a day Active Lantus 100 UNIT/ML 12 units in the afte rnoon Subcutaneous Once a day Active Gabapentin 100 MG 2 capsule Orally hs Active Iron 325 (65 Fe) MG 1 tablet Orally Once a day for 30 day(s) Active VITAL SIGNS Blood pressure systolic 118 mm Hg 02/27/20 24 Blood pressure diastolic 40 mm Hg 024 Height 66.5 in 02/27/2024 Encounters Encounter Location Date Provider Diagnosis Melquiades Chan MD [address] [place] [address] Drive [address] [place], [place] [phone] 02/27/2024 Melquiades Chan Type 2 diabetes monae itus without complication E11.9 ; Lumbar disc disease with radiculopathy M51.16 and Pure hypercholesterolemia E78.00 ASSESSMENTS Encounter Date Diagnosis Assessment Notes Treatment Notes Treatment Clinical Notes 02/27/2024 Type 2 diabetes monae itus without complication (ICD-10 - E11.9) stable, will continue current regiment 02/27/2024 Lumbar disc disease with radiculopathy (ICD-10 - M51.16) need notes from dr pardo, will emiliiue current regiment/ request for records will be sent 02/27/2024 Pure hypercholestero lemia (ICD-10 - E78.00) doing well on meds. will contiue current regiment PLAN OF TREATMENT Medication Medication Name Sig Start Date Stop Date Notes NovoLOG 100 UNIT/ML 5 units Subcutaneous three times a day Atorvastatin Calcium 80 MG 1 tablet Orally Once a day Lantus 100 UNIT/ML 12 units in the afte rnoon Subcutaneous Once a day Gabapentin 100 MG 2 capsule Orally hs Treatment Notes Assessment Notes Type 2 diabetes mellitus without complic ation stable, will continue current regiment Lumbar disc disease with radiculopathy n eed notes from dr pardo, will emiliichristo current regiment/ request for records will be sent Pure hypercholesterolemia doing well on meds. will contiue current regiment Next Appt Details Follow Up: 3 Months, Reason: Progress Notes * Examination Category Sub-Category Detail Notes General Examination GENERAL APPEARANCE: alert, w ell hydrated, in no distress , male HEAD: normocephalic HEART: regular rate and rhy thm 3/6 micheline LUNGS: no wheezes, rales, r honchi, clear to auscultation bilaterally, good air movement SKIN: good turgor
--- OUTSIDE RECORDS SUMMARY | 2024-07-04 16:13 | XMS_ITS ---
Author Organization Melquiades Chan MD Address [address] [place] [phone] Care Team Providers Care Industrial Psychology Teacher Name Role Phone Dustin Melquiades Primary Care Provider ALLERGIES No Known Allergies REASON FOR VISIT 3 month, fall, tobacco, PHQ9 Encounters Encounter Location Date Provider Diagnosis Melquiades Chan MD [address] [place] [phone] 05/31/2024 Melquiades Chan Type 2 diabetes mellitus without complication E11.9 ASSESSMENTS Encounter Date Diagnosis Assessment Notes Treatment Notes Treatment Clinical Notes 05/31/2024 Type 2 diabetes mellitus without complication (ICD-10 - E11.9) PLAN OF TREATMENT Pending Test Test Name Order Date Hemoglobin A1c 05/31/2024 Glucose, finger stick 05/31/2024
--- OUTSIDE RECORDS SUMMARY | 2024-07-04 16:13 | XMS_ITS | Patient Health Record ---
Author Organization Melquiades Chan MD Address [address] [place] [phone] Care Team Providers Care Account Information Clerk Name Role Phone Melquiades Chan Primary Care Provider [phone] ALLERGIES No Known Allergies RESULTS Component Value Reference Range Notes Hemoglobin A1c Reviewed date:12/12/2023 10:33:49 AM Interpretation: Performing Lab: Notes/Report: Value Hemoglobin A1c 7.0 Liver Panel Reviewed date:07/10/2023 12:42:10 PM Interpretation: Performing Lab:[facility], [address] [place] [address] Notes/Report: Bilirubin Total 1.7 0.0-1.0 mg/dL Bilirubin Direct 0.6 0.0-0.5 mg/dL Aspartate Amino Transferase 26 5-37 U/L Alanine Aminotransferase 22 0-40 U/L Total Protein 6.9 6.5-8.0 g/dL Albumin Level 4.1 3.5-5.0 g/dL Alkaline Phosphatase 53 39-117 U/L Glucose Fasting Reviewed date:07/10/2023 12:39:13 PM Interpretation: Performing Lab:[facility], [address] [place] [phone] Notes/Report: Glucose Fasting 105 60-99 mg/dL A fasting glucose from 100-125 mg/dl is considered impaired (pre-diabetes). Lipid Panel with Reflex Reviewed date:07/10/2023 02:55:43 PM Interpretation: Performing Lab:[facility], [address] [place] [phone] Notes/Report: Triglycerides 76 <150 mg/dL Desirable Triglyceride: less than 150 mg/dL Borderline High Triglyceride 150-199 mg/dL High Triglyceride: 200-499 mg/dL Very High Triglyceride: greater than or equal to 5OO mg/dL Cholesterol 147 <200 mg/dL Desirable Cholesterol: less than 200 mg/dL Borderline High Cholesterol: 200-239 mg/dL High Cholesterol: greater than 239 mg/dL LDL Cholesterol Calculated 65 <100 mg/dL Desirable LDL: less than 100 mg/dL Near Optimal/Above Optimal LDL: 110-129 mg/dL Borderline High LDL: 130-159 mg/dL High LDL: 160-189 mg/dL Very High LDL: greater than or equal to 190 mg/dL HDL Cholesterol 67 >40 mg/dL Desirable HDL: greater than 40 mg/dL Note: This HDL assay may give artificially low results in patients with liver disease. Hemoglobin A1c Reviewed date:07/10/2023 12:41:54 PM Interpretation: Performing Lab:[facility], [address] [place] [phone] Notes/Report: Hemoglobin A1c % 7.4 <6.0 % Hemoglobin A1C Reference Range Adults: 4.8 - 6.0 % Non diabetic: < 6.0 % Goal: < 7.0 % Additional Action Suggested: > 8.0 % Note: Hemoglobin A1c results are invalid for patients with abnormal amounts of HbF. Blood transfusions may impact the HbA1c concentration in the patient sample. Estimated Average Glucose 166 eAG = Estimated average glucose which is %A1C expressed as average glucose, using the formula of the [id number] Average Glucose study (ADAG), Diabetes Care, Vol.31,#8, Feb. 2007 Glucose, finger stick Reviewed date:08/14/2023 09:57:48 AM Interpretation: Performing Lab: Notes/Report: Value 276 US thyroid Reviewed date:10/17/2023 02:07:17 PM Interpretation: Performing Lab: Notes/Report: [facility] [address] [place] [address] Ultrasound Report Signed Patient: Isaac Rios MR#: [id number] 7 : 1935 Acct:[id number] Age/Sex: 88 / M ADM Date: 10/15/23 Loc: HO.HMGCX Attending Dr: Melquiades Chan MD Ordering Physician: Melquiades Chan MD Date of Service: 10/15/23 Procedure(s): US thyroid Accession Number(s): [id number] cc: Melquiades Chan MD EXAMINATION: US THYROID CLINICAL INFORMATION: Thyroid nodule. COMPARISON: Thyroid ultrasound 10/24/2022. TECHNIQUE: Linear transducer grayscale and color Doppler examination with attention to the region of the thyroid. FINDINGS: SIZE: Measurements of the thyroid lobes and nodules are given in sagittal, anteroposterior and transverse dimensions respectively. Right Thyroid Lobe: 4.3 x 1.7 x 1.3 cm, volume 5.0 mL. Previously 4.5 x 2.0 x 1.2 cm, volume 5.5 mL. Parenchyma: The gland echotexture is homogeneous. Thyroid vascularity is normal. Left Thyroid Lobe: 4.0 x 1.3 x 1.5 cm, volume 4.1 mL. Previously 3.8 x 1.2 x 1.2 cm, volume 2.8 mL. Parenchyma: The gland echotexture is homogeneous. Thyroid vascularity is normal. Isthmus: 0.3 cm in maximum AP dimension. Previously 0.4 cm. Estimated total number of nodules greater than or equal to 1 cm: 0. 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 Location: Right upper pole. Size: 0.9 x 0.8 x 0.9 cm, volume 0.33 mL. Previously: 0.9 x 0.7 x 0.9 cm, volume 0.30 mL. Nodule characteristics: Composition: Solid/almost completely solid (2). Echogenicity: Hypoechoic (2). Shape: Not taller than wide (0). Margins: Smooth (0). Echogenic Foci: Punctate echogenic foci (3). ACR TI-RADS total points: 7 Previous: 7 ACR TI-RADS category: 5 Previous: 5 2. Location: Left upper pole. Size: 0.6 x 0.5 x 0.6 cm, volume 0.08 mL. Previously: 0.6 x 0.5 x 0.5 cm, volume 0.07 mL. Nodule characteristics: Composition: Cystic(0). ACR TI-RADS total points: 0 Previous: 0 ACR TI-RADS category: 1 Previous: 1 3. Location: Left mid pole. Size: 0.8 x 0.3 x 0.5 cm, volume 0.05 mL. Previously: 0.6 x 0.3 x 0.5 cm, volume 0.04 mL. Nodule characteristics: Composition: Spongiform (0). ACR TI-RADS total points: 0 Previous: 0 ACR TI-RADS category: 1 Previous: 1 NODES: No lymphadenopathy is seen in the tissue surrounding the thyroid gland. US/US thyroid IMPRESSION: Stable 0.9 cm TR 5 nodule in the right upper thyroid. Recommend surveillance ultrasound in one year. ACR TI-RADS RECOMMENDATION REFERENCE: Ultrasound-guided fine-needle aspiration, follow up ultrasound, no further followup. * TR1 (0 point) and TR2 (2 points): No FNA or followup * TR3 (3 points): FNA if more than or equal to 2.5 cm in maximum dimension, follow up ultrasound in 1, 3 and 5 years if 1.5 to 2.4 cm in maximum dimension. * TR4 (4-6 points): FNA if more than or equal to 1.5 cm in maximum dimension, follow up ultrasound in 1, 2, 3 and 5 years if 1 to 1.4 cm in maximum dimension. * TR5 (more than or equal to 7 points): FNA if more than or equal to 1 cm in maximum dimension, follow up ultrasound every year for 5 years if 0.5 to 0.9 cm in maximum dimension. * TR3, TR4 or TR5 nodules that are below the size threshold for follow up receive no followup. Dictated By: Derrick Case MD Signed By: <Electronically signed by Derrick Case MD in OV> 10/17/23 1352 DD/ 1432 TD/TT: [employer] Information Clerk: MITCHEL Storey, finger stick Reviewed date:12/12/2023 10:27:06 AM Interpretation: Performing Lab: Notes/Report: Value 225 CT lumbar spine wo con Reviewed date:12/22/2023 03:15:57 PM Interpretation:message sent to provider Performing Lab: Notes/Report: [address] [address] [address] Scan Report Signed Patient: Isaac Rios MR#: [id number] 7 : 1935 Acct:[id number] Age/Sex: 88 / M ADM Date: 12/17/23 Loc: HO.CT Attending Dr: Melquiades Chan MD Ordering Physician: Melquiades Chan MD Date of Service: 12/17/23 Procedure(s): CT lumbar spine wo IV con Accession Number(s): [id number] cc: Melquiades Chan MD EXAMINATION: CT LUMBAR SPINE WITHOUT CONTRAST CLINICAL INFORMATION: Low back pain. Lumbar disc disease. COMPARISON: Lumbar spine MRI 09/17/2018. TECHNIQUE: Crusher Loader Operator images were obtained. CT imaging of the lumbar spine was performed without contrast. Data was reformatted into multiplanar images at the acquisition workstation. This CT examination was performed using dose optimization techniques as appropriate, variously including the following: *Automated exposure control *Adjustment of mA and/or kV according to patient size (this includes techniques or standardized protocols for targeted exams where dose is matched to indication/reason for exam; i.e. extremities or head) *Use of iterative reconstruction technique DLP; 491 mGy-cm FINDINGS: There are chronic postoperative changes of a posterior spinal fusion. Transpedicular hardware extends from L4 to L5. Hardware is grossly intact with no evidence to suggest loosening or failure. Bridging bone completely fuses the L4 and L5 vertebral segments. Alignment is otherwise normal. Vertebral body heights are preserved. No acute fracture. There is loss of intervertebral disc height with associated sclerotic degenerative endplate changes, hypertrophic disc osteophyte spurring, and intervertebral vacuum disc phenomenon at L5-S1 and to a lesser extent at L3-L4. Canal patency is not well assessed on this examination due to inherent limitations of CT without intrathecal contrast and due to the extent of streak artifact related to the fusion hardware There is a least moderate canal stenosis at the level of L3-L4. A bulging disc in conjunction with facet degenerative change at L3-L4 causes at least mild mass effect on both L3 foraminal nerve roots. There is also at least moderate compression of both L5 foraminal nerve roots related to degenerative changes at L5-S1. Limited visualization of the retroperitoneal anatomy reveals heavily calcified atherosclerotic plaque involving abdominal aorta and iliac vessels. Psoas and paraspinal muscle groups are grossly symmetric. CT/CT lumbar spine wo IV con IMPRESSION: There are chronic postoperative changes of a posterior spinal fusion with transpedicular hardware extending from L4 to L5. Bridging bone completely fuses the L4 and L5 vertebral segments. There is junctional spondylosis above and below the fused segments. Canal patency is not well assessed on this examination due to inherent limitations of CT without intrathecal contrast and due to the extent of streak artifact related to the fusion hardware. There is at least moderate canal stenosis at L3-L4 and at least mild mass effect on both L3 foraminal nerve roots. There is also at least moderate compression of both L5 foraminal nerve roots related to degenerative changes at L5-S1. Dictated By: Pedro Lui MD Signed By: <Electronically signed by Pedro Lui MD in OV> 12/22/23 1033 DD/ 1524 TD/TT: [employer] Information Clerk: DAREK Restrepo Reviewed date:02/09/2024 02:04:17 PM Interpretation: Performing Lab:[address] [phone] Notes/Report: Mele Restrepo See Note Specimen held untested for 24 hours; Call to request Chemistry testing. Liver Panel Reviewed date:02/09/2024 02:04:05 PM Interpretation: Performing Lab:[address] [phone] Notes/Report: Bilirubin Total 1.6 0.0-1.0 mg/dL Bilirubin Direct 0.5 0.0-0.5 mg/dL Aspartate Amino Transferase 18 5-37 U/L Alanine Aminotransferase 17 0-40 U/L Total Protein 6.4 6.5-8.0 g/dL Albumin Level 4.0 3.5-5.0 g/dL Alkaline Phosphatase 48 39-117 U/L Glucose Fasting Reviewed date:02/09/2024 02:11:18 PM Interpretation: Performing Lab:[address] [address] Notes/Report: Glucose Fasting 135 60-99 mg/dL A fasting glucose of 126 mg/dl or greater on more than one occasion is considered diagnostic of diabetes. Lipid Panel with Reflex Reviewed date:02/09/2024 02:15:48 PM Interpretation: Performing Lab:[facility], [address] [place] [phone] Notes/Report: Triglycerides 72 <150 mg/dL Desirable Triglyceride: less than 150 mg/dL Borderline High Triglyceride 150-199 mg/dL High Triglyceride: 200-499 mg/dL Very High Triglyceride: greater than or equal to 5OO mg/dL Cholesterol 114 <200 mg/dL Desirable Cholesterol: less than 200 mg/dL Borderline High Cholesterol: 200-239 mg/dL High Cholesterol: greater than 239 mg/dL LDL Cholesterol Calculated 42 <100 mg/dL Desirable LDL: less than 100 mg/dL Near Optimal/Above Optimal LDL: 110-129 mg/dL Borderline High LDL: 130-159 mg/dL High LDL: 160-189 mg/dL Very High LDL: greater than or equal to 190 mg/dL HDL Cholesterol 58 >40 mg/dL Desirable HDL: greater than 40 mg/dL Note: This HDL assay may give artificially low results in patients with liver disease. Hemoglobin A1c Reviewed date:02/09/2024 02:04:56 PM Interpretation: Performing Lab:[facility], [address] [place] [phone] Notes/Report: Hemoglobin A1c % 7.9 <6.0 % Hemoglobin A1C Reference Range Adults: 4.8 - 6.0 % Non diabetic: < 6.0 % Goal: < 7.0 % Additional Action Suggested: > 8.0 % Note: Hemoglobin A1c results are invalid for patients with abnormal amounts of HbF. Blood transfusions may impact the HbA1c concentration in the patient sample. Estimated Average Glucose 180 eAG = Estimated average glucose which is %A1C expressed as average glucose, using the formula of the [id number]-Kjhtvvd Average Glucose study (ADAG), Diabetes Care, Vol.31,#8, Feb. 2007 Glucose, finger stick Reviewed date:02/27/2024 02:04:49 PM Interpretation: Performing Lab: Notes/Report: Value 245 REASON FOR REFERRAL Reason lumbar disc disease Diagnosis 1 Lumbar disc disease with radiculopathy (M51.16) Referral Organization Melquiades Chan MD Referring Provider First Name Melquiades Referring Provider Last Name Dustin Referring Provider Speciality Internal M edicine Referred Provider Luis Alberto Pardo Referred Provider Specialty Neurological Surgery General Notes Amber Silva 01:33:45 PM EDT > p [phone] Amber Silva 12/22/2023 01:45:11 PM EDT > in order to book an appt with Dr. Pardo patient must have a MRI done. , Amber Silva 12/22/2023 02:48:21 PM EDT > pre provider patient not able to have a MRI done, due to fusions and metal in his back records faxed to [facility]anco Annette 12/26/2023 02:01:55 PM EDT > gave him his info regarding appt during his appt with provider on 12-26-2023, told him they are trying to get him in so[place]., Amber Silva 01/05/2024 08:57:54 AM EDT > info refaxed to [phone] scan down loaded to [facility] Referral Priority Routine Referral Appointment Date 02/12/2024 MEDICATIONS Medication SIG (Take, Route, Frequency, Duration) Notes Start Date End Date Status Chlorthalidone 50 MG 1 tablet in the mor farheen with food Orally Once a day for 30 day(s) Active Iron 325 (65 Fe) MG 1 tablet Orally Once a day for 30 day(s) Active NovoLOG 100 UNIT/ML 5 units Subcutaneous three times a day Active Atorvastatin Calcium 80 MG 1 tablet Oral ly Once a day Active Lasix 20 MG 1 tablet Orally Once a day for 30 day(s) Active tiZANidine HCl 2 MG 1 tablet as needed O rally Three times a day Active Lisinopril 10 MG 1 tablet Orally Once a day Active Lantus 100 UNIT/ML 12 units in the afte rnoon Subcutaneous Once a day Active Aspir-81 81 MG 1 tablet Orally Once a day for 30 day(s) Active Vitamin B12 1000 MCG 1 tablet Orally Onc e a day for 30 day(s) Active Gabapentin 100 MG 2 capsule Orally hs Active IMMUNIZATIONS Vaccine Route Administration Date Status Comme nts PPSV23 (Pnemovax) Unknown 11/16/2004 Administered Flu Vaccine Unknown 04/11/2013 Administered [facility] Flu Vaccine Unknown 04/19/2014 Administered [facility] Flu Vaccine Unknown 07/10/[address] [facility] Fluarix Quadrivalent Unknown 06/17/2016 Administered [facility] Fluarix Quadrivalent Unknown 04/30/2017 Administered [facility] Prevnar 13 IM Intramuscular 10/03/2014 [facility] [place] [facility] PPSV23 (Pnemovax) Unknown 02/10/2003 [facility] Shingles Unknown 04/15/2012 Administered [facility] was [facility] the [facility] TDaP Unknown 03/25/2012 Administered pt was [facility] the vaccine [facility] Shingrix IM Intramuscular 12/11/2017 Administered pt was [facility] the vaccine [facility] Shingrix IM Intramuscular 10/03/2017 Administered [facility] was [facility] the vaccine [facility] Influenza High Dose Unknown 04/20/2019 Administered [facility] SARS-COV-2 Pfizer Unknown 11/07/2020 Administered SARS-COV-2 Pfizer Unknown 12/08/2020 Administered Fluarix Quadrivalent Unknown 03/23/2021 Administered Influenza High Dose Unknown 05/07/2022 Administered Influenza High Dose Unknown 03/26/2023 Administered [facility] PPSV23 (Pnemovax) Unknown 01/19/2015 Refused SOCIAL HISTORY Tobacco Use: Social History Observation Description Date Details (start date - stop date) Former Smoker NA - NA Sex Assigned At : Social History Observation Description Sex Assigned At Unknown Tobacco Use/Smoking Question Answer Notes Patient is a former smoker How long has it been since y ou last smoked? > 10 years Additional Findings: Tobacco Non-User Fo rmer smoker, currently using no form of tobacco Alcohol Screen Question Answer Notes Did you have a drink contain ing alcohol in the past year? Yes How often did you have a dri nk containing alcohol in the past year? 4 or more times a week (4 points) How many drinks did you have on a typical day when you were drinking in the past year? 1 or 2 drinks (0 point) How often did you have 6 or more drinks on one occasion in the past year? 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 516238715 Problem Acute systolic (congestive) heart failure (I50.21) Active confirmed 804994132 Problem Essential hypertensi on (I10) Active confirmed 13037955 Problem Type 2 diabetes mellitus without complication (E11.9) Active confirmed 94263205 Problem Unstable gait (R26.81) Active confirmed Abnormal gait (61176150) Problem Type 2 diabetes, controlled, with neuropathy (E11.40) Active confirmed 76631319 Problem 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) Active confirmed 399 869937 Problem Serum potassium elevated (E87.5) Active confirmed 68109687 Problem Aortic stenosis (Q25.3) Active confirmed 83027489 Problem Anemia, unspecified type (D64.9) Active confirmed 755267882 Problem Neutropenia, unspecified type (D70.9) Active confirmed 159664578 Problem Rising PSA level (R97.20) Active confirmed 928803817 Problem Pure hypercholesterolemia (E78.00) Active confirmed 977391723 Problem Temporary low platel et count (D69.6) Active confirmed 848593335 Problem 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) Active confirmed 3221948504465 02 Problem Carpal tunnel syndro me on both sides (G56.03) Active confirmed 0998400036393 9101 Problem Brain bleed (I61.9) Active confirmed 27 5220039 VITAL SIGNS Blood pressure diastolic 40 mm Hg 02/27/2024 Height 66.5 in 02/27/2024 Blood pressure systolic 118 mm Hg 02/27/2024 Weight 154 lbs 12/12/2023 BMI 24.48 kg/m2 12/12/2023 Encounters Encounter Location Date Provider Diagnosis Melquiades Chan MD [address] [place] [address] [id number] 12/26/2023 Melquiades Chan Lumbar disc disease with radiculopathy M51.16 Melquiades Chan MD [address] [place] [id number] 07/10/2023 Melquiades Chan Type 2 diabetes monae itus without complication E11.9 and Pure hypercholesterolemia E78.00 Melquiades Chan MD [address] [place] [address] [id number] 02/09/2024 Melquiades Chan Type 2 diabetes monae itus without complication E11.9 and Pure hypercholesterolemia E78.00 Melquiades Chan MD [address] [place] [address] [id number] 07/14/2023 Melquiades Chan Essential hypertensi on I10 and Organ-limited amyloidosis E85.4 Melquiades Chan MD [address] [place] [id number] 08/14/2023 Melquiades Cunninghamardicelio Type 2 diabetes monae itus without complication E11.9 and Essential hypertension I10 Melquiades Chan MD [address] [place] [id number] 02/27/2024 Melquiades Chan Type 2 diabetes monae itus without complication E11.9 ; Lumbar disc disease with radiculopathy M51.16 and Pure hypercholesterolemia E78.00 Melquiades Chan MD [address] [place] [id number] 12/12/2023 Melquiades Chan Type 2 diabetes monae itus without complication E11.9 and Lumbar disc disease with radiculopathy M51.16 Melquiades Chan MD [address] [place] [address] [id number] 12/19/2023 Melquiades Chan Lumbar disc disease with radiculopathy M51.16 Melquiades Chan MD [address] [place] [id number] 01/15/2024 Melquiades Chan Essential hypertensi on I10 and Type 2 diabetes, controlled, with neuropathy E11.40 Melquiades Chan MD [address] [place] [address] [id number] 05/31/2024 Melquiades Chan Type 2 diabetes monae itus without complication E11.9 Melquiades Chan MD [address] [place] [address] [id number] 09/23/2023 Melquiades Chan MD [address] [place] [address] [id number] 10/17/2023 Melquiades Chan Thyroid nodule E04.1 Melquiades Chan MD [address] [place] [address] [id number] 10/27/2023 Melquiades Chan MD [address] [place] [address] [id number] 12/22/2023 Melquiades Chan MD [address] [place] [address] Drive [address] [place], [place] [id number] 03/09/2024 Melquiades Chan ASSESSMENTS Encounter Date Diagnosis Assessment Notes Treatment Notes Treatment Clinical Notes 12/26/2023 Lumbar disc disease with radiculopathy (ICD-10 - M51.16) reviewed CT of LS Spine with patient, is getting physical therapy. awaiting dr pardo's evaluation/ if dr pardo won't see him will send to [facility] to see if they can help/ has an appt with Dr. Pardo 07/10/2023 Type 2 diabetes monae itus without complication (ICD-10 - E11.9) 07/10/2023 Pure hypercholestero lemia (ICD-10 - E78.00) 02/09/2024 Type 2 diabetes omnae itus without complication (ICD-10 - E11.9) 02/09/2024 Pure hypercholestero lemia (ICD-10 - E78.00) 07/14/2023 Organ-limited amyloi dosis (ICD-10 - E85.4) 07/14/2023 Essential hypertensi on (ICD-10 - I10) [facility] for the [facility] 08/14/2023 Essential hypertensi on (ICD-10 - I10) doing well on meds, will continue current regiment 08/14/2023 Type 2 diabetes monae itus without complication (ICD-10 - E11.9) followed by [facility], stable, will cntinue current regiment 02/27/2024 Type 2 diabetes monae itus without complication (ICD-10 - E11.9) stable, will continue current regiment 12/12/2023 Lumbar disc disease with radiculopathy (ICD-10 - M51.16) has fusion there/order faxed to [facility] dept, pending diagnostic testing 12/12/2023 Type 2 diabetes monae itus without complication (ICD-10 - E11.9) stable, will continue currnt regiment 12/19/2023 Lumbar disc disease with radiculopathy (ICD-10 - M51.16) if it gets worse to go to the emergency room. will put pressure on radiology to read xray next 01/15/2024 Essential hypertensi on (ICD-10 - I10) stable, will continue currnt regiment 01/15/2024 Type 2 diabetes, controlled, with neuropathy (ICD-10 - E11.40) stable, will continue current regiment 05/31/2024 Type 2 diabetes monae itus without complication (ICD-10 - E11.9) 10/17/2023 Thyroid nodule (ICD- 10 - E04.1) Order made and printed and put into the future order folder for . 02/27/2024 Lumbar disc disease with radiculopathy (ICD-10 - M51.16) need notes from dr pardo, will contiue current regiment/ request for records will be sent 02/27/2024 Pure hypercholestero lemia (ICD-10 - E78.00) doing well on meds. will contiue current regiment PLAN OF TREATMENT Pending Test Test Name Order Date Electrocardiogram (EKG) 01/19/2015 Electrocardiogram (EKG) 08/04/2015 Electrocardiogram (EKG) 09/05/2017 Electrocardiogram (EKG) 09/11/2018 Hemoglobin A1c 05/31/2024 X ray : LS Spine 04/08/2011 Glucose, finger stick 05/31/2024 XR CHEST 2 VIEW PA & LAT 08/04/2015 ECHO 07/21/2014 ECHO 06/15/2013 US thyroid 10/17/2023 Future Test Test Name Order Date US thyroid 10/28/2023 US thyroid 11/09/2023 Insurance Providers Payer Name Payer Address Payer Phone Subscriber Number Group Number Insured Name Patient Relationship to Insured Coverage Start Date Coverage End Date [employer] [address] [place] [address] [id number] Isaac Rios Self - patient is the insured [employer] [place] [address] [place] [phone] [id number] Isaac Rios Self - patient is the insured MEDICAL (GENERAL) HISTORY Medical History History ICD Code colonoscopy 2011 small adeno [place]; 01/24/15 colonoscopy w/Dr. Rhodes (repeat 10 yrs) carotid ultrasound insignificant stenosi s 2012 echo with mild aortic stenosis 2012 cabg 03/2016
[2024-07-04 18:12] VITALS: BP 156/60; PULSE 84; RESP 16; TEMP 36.6; O2SAT 99
[2024-07-04 18:57] VITALS: BP 156/60; PULSE 84; RESP 16; TEMP 36.6; O2SAT 99
== END 2024-07-04 18:58 | disposition home or self-care (01) ==
PROVIDERS: Emergency Provider Internal Medicine; PCP Internal Medicine
DX: S92.531A Displaced fracture of distal phalanx of right lesser toe(s), initial encounter for closed fracture (principal); M79.671 Pain in right foot; I10 Essential (primary) hypertension; E11.9 Type 2 diabetes mellitus without complications; Y29.XXXA Contact with blunt object, undetermined intent, initial encounter; Y93.89 Activity, other specified; Y92.094 Garage of other non-institutional residence as the place of occurrence of the external cause; Y99.8 Other external cause status; Z79.899 Other long term (current) drug therapy; Z79.4 Long term (current) use of insulin
CPT/HCPCS: 29515; 73660; 99283; 99284

== ENCOUNTER → 2024-07-04 16:06 | Outpatient (BNV) | payer MEDICARE, SELFPAY | PROVIDERS: PCP Internal Medicine; Visit Provider Radiology Diagnostic Radiology | DX: S92.531A Displaced fracture of distal phalanx of right lesser toe(s), initial encounter for closed fracture (principal) | CPT/HCPCS: 73660 ==

== ENCOUNTER 2024-09-23 12:58 | Outpatient (REF) | payer MEDICARE, SELFPAY ==
--- NOTE | ~2024-09-23 | XR_ITS ---
EXAMINATION: XR SACROILIAC JOINTS CLINICAL INFORMATION: M46.1 SACROILITIS COMPARISON: None available. TECHNIQUE: 3 views of the sacroiliac joints FINDINGS: No acute cortical disruption. Osteopenia versus osteoporosis. Transpedicular screws at L4-5 and joint with short lamin. XR/XR sacroiliac joint min 3V IMPRESSION: No acute fracture. No sacroiliitis. Electronically signed by: Reinaldo Dumont MD 09/27/2024 08:18 AM EDT
--- OUTSIDE RECORDS SUMMARY | 2024-09-23 15:27 | XMS_ITS ---
Author Organization Melquiades Chan MD Address [address] [place] [phone] Care Team Providers Care Slab Stripper Name Role Phone Dustin Melquiades Primary Care Provider Allergies No Known Allergies REASON FOR VISIT 3 month, fall, tobacco, PHQ9 Encounters Encounter Location Date Provider Diagnosis Melquiades Chan MD [address] [place] [phone] 05/31/2024 Melquiades Chan Type 2 diabetes mellitus without complication E11.9 Assessments Encounter Date Diagnosis (ICD Code) Assessment Notes Treatment Notes Treatment Clinical Notes Section Notes 05/31/2024 Type 2 diabetes mellitus without complication (ICD-10 - E11.9) Plan Of Treatment Pending Test Test Name Order Date Hemoglobin A1c 05/31/2024 Glucose, finger stick 05/31/2024 Progress Notes * Isaac RIOSDOB:1935 (89 yo M)Acc No.[id number]:05/31/2024 Progress Notes Patient:?Isaac RIOS Provider:?Melquiades Chan MD :1935???Age:88 Y???Sex:Male Servando e:05/31/2024 Address:[address] [place] [address] [phone] Subjective: * Chief Complaints: * ???1. 3 month. 2. 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 * ROS:?General/Constitutional:?Denies?Chills.?Denies?Fatigue.?Denies?Fever.?Denies?Headache.?ENT:?Denies?Sore throat.?Respiratory:?Denies?Cough.?Denies?Shortness of breath at rest.?Denies?Shortness of breath with exertion.?Gastrointestinal:?Denies?Diarrhea.?Denies?Nausea.? * Medical History:?colonoscopy 2011 small adenoma; 01/24/15 colonoscopy w/Dr. Rhodes (repeat 10 yrs), Carotid ultrasound insignificant stenosis 2012, Echo with mild aortic stenosis 2012, Cabg 03/2016. * Allergies:?N.K.D.A. Objective: * Vitals:? Assessment: * Assessment: 1.?Type 2 diabetes mellitus without complication - E11.9??? Plan: * Treatment: * Procedure Codes:?67496 ASSAY , GLUCOSE, BLOOD QUANT, Modifiers: QW , 80634 GLYCATED HEMOGLOBIN TEST, Modifiers: QW * * The named appointment provid er may or may not be the originator of this progress note, and it is not deemed complete until electronically signed by the appointment provider. Sign off status: Pending * Provider:?Melquiades Chan MD Date:?1 07/31/2023 Generated for Korey duran/Magdalene/eTmattismitting on:?09/23/2024 03:26 PM EDT
--- OUTSIDE RECORDS SUMMARY | 2024-09-23 15:27 | XMS_ITS ---
Author Organization Melquiades Chan MD Address [address] [place], [place] [phone] Care Team Providers Care Manufacturing Engineer Chief Name Role Phone Melquiades Chan Primary Care Provider REASON FOR VISIT ER Encounters Encounter Location Date Provider Diagnosis Melquiades Chan MD [address] [place] [phone] 07/08/2024 Melquiades Chan Plan Of Treatment No Information Progress Notes * Isaac RIOSDOB:1935 (89 yo M)Acc No.[id number]:07/08/2024 Patient:?Isaac Rios :1935???Age:89 Y???Sex:Male Address:[address] [place] [address] [place] [address] * true * Date:? Generated for Printi ng/Faxing/eTransmitting on:?09/23/2024 03:27 PM EDT
--- OUTSIDE RECORDS SUMMARY | 2024-09-23 15:27 | XMS_ITS ---
Author Organization [facility] Care Team Providers Care Parts And Service Manager Name Role Phone Gina Lees Unavailable Unavailable Selma Erwin Unavailable Unavailable Isacc RIGGING SLINGER, Virgilio Olsen Unavailable Unavailable Pérez Amin Unavailable Unavailable Allergies and adverse reactions No Known Allergies Care Team Name Role Address Phone Organization Dates Selma Erwin PCP [address] [place] [address], [place], [address], [facility] (Office): : [facility] 06/29/2022 - 10/06/2022 [place], [address], [facility] (Office): : [facility] 06/29/2022 - 10/06/2022 Virgilio Dexter NP Attending Physician [address] [place] [address], [place] [address], [facility] (Office): [facility] 06/29/2022 - 10/06/2022 Pérez Amin Attending Physician [address] [address], [place], [address], [facility] (Office): : [facility] 06/29/2022 - 10/06/2022 Immunizations Immunization Status Vaccine Details Vaccine Code CodeSystem Date Notes Tdap completed tetanus and diphtheria toxoids, adsorbed, preservative free, for adult use, Lf unspecified 196 CVX created date: 07/04/2022 administere d date: 03/25/2012 PCV 13 completed pneumococcal conjugate vaccine, 13 valent 133 CVX created date: 07/04/2022 administere d date: 10/03/2014 PPSV23 completed pneumococcal polysaccharide vaccine, 23 valent 33 CVX created date: 07/04/2022 administere d date: 02/10/2003 Covid-19 Vaccine (Pfizer CVX 208) dose #1 completed SARS-COV-2 (COVID-19) vaccine, mRNA, spike protein, LNP, preservative free, 50 mcg/0.5 mL dose 221 CVX created date: 07/04/2022 administere d date: 11/17/2020 Covid-19 Vaccine (Pfizer CVX 208) dose #2 completed SARS-COV-2 (COVID-19) vaccine, mRNA, spike protein, LNP, preservative free, 50 mcg/0.5 mL dose 221 CVX created date: 07/04/2022 administere d date: 12/08/2020 Influenza vaccine 2627-9953 completed Influenza, adjuvanted, inactivated, quadrivalent, injectable, preservative free 205 CVX created date: 07/04/2022 administere d date: 03/23/2021 Mental Status Section Date Assessment Total Score Description 10/06/2022 BIMS 15 cognitively int act CAM 0 No delirium ind icated PHQ-9 00 10/03/2022 BIMS 15 cognitively int act CAM 0 No delirium ind icated PHQ-9 00 Problems Problem # Description Date of onset Resolved Date Code CodeSystem Concern Status 1 CONSTIPATION, UNSPECIFIED 07/12/[address] active 2 HYPERLIPIDEMIA, UNSPECIFIED 07/12/[address] active 3 UNSPECIFIED SYSTOLIC (CONGESTIVE) HEART FAILURE 07/12/[address] active 4 ANEMIA, UNSPECIFIED 06/29/[address] active 5 BRADYCARDIA, UNSPECIFIED 06/29/[address] active 6 COVID-19 06/29/[address] active 7 DIZZINESS AND GIDDINESS 06/29/[address] active 8 DYSPHAGIA, OROPHARYNGEAL PHASE 06/29/[address] active 9 ENCOUNTER FOR FOLLOW-UP EXAMINATION AFTER COMPLETED TREATMENT FOR CONDITIONS OTHER THAN MALIGNANT NEOPLASM 06/29/[address] active 10 ESSENTIAL (PRIMARY) HYPERTENSION 06/29/[address] active 11 HEART FAILURE, UNSPECIFIED 06/29/[address] active 12 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 06/29/[address] active 13 MUSCLE WASTING AND ATROPHY, NOT ELSEWHERE CLASSIFIED, LEFT UPPER ARM 06/29/[address] active 14 MUSCLE WASTING AND ATROPHY, NOT ELSEWHERE CLASSIFIED, RIGHT UPPER ARM 06/29/[address] active 15 NONRHEUMATIC AORTIC (VALVE) STENOSIS 06/29/[address] active 16 NONRHEUMATIC MITRAL (VALVE) INSUFFICIENCY 06/29/[address] active 17 OTHER ACUTE POSTPROCEDURAL PAIN 06/29/[address] active 18 OTHER LACK OF COORDINATION 06/29/[address] active 19 OTHER MALAISE 06/29/[address] active 20 OTHER NONTRAUMATIC INTRACEREBRAL HEMORRHAGE 06/29/[address] active 21 OTHER SYMPTOMS AND SIGNS INVOLVING THE MUSCULOSKELETAL SYSTEM 06/29/[address] active 22 POLYNEUROPATHY, UNSPECIFIED 06/29/[address] active 23 PRESENCE OF AORTOCORONARY BYPASS GRAFT 06/29/[address] active 24 REPEATED FALLS 06/29/[address] active 25 TYPE 2 DIABETES MELLITUS WITHOUT COMPLICATIONS 06/29/[address] active 26 UNSPECIFIED ABNORMALITIES OF GAIT AND MOBILITY 06/29/[address] active 27 UNSPECIFIED CORD COMPRESSION 06/29/[address] active 28 UNSPECIFIED FALL, SEQUELA 06/29/[address] active 29 UNSPECIFIED FALL, SUBSEQUENT ENCOUNTER 06/29/[address] active 30 UNSPECIFIED LACK OF COORDINATION 06/29/[address] active 31 UNSPECIFIED MONONEUROPATHY OF BILATERAL UPPER LIMBS 06/29/[address] active 32 VITAMIN D DEFICIENCY, UNSPECIFIED 06/29/[address] active Reason for Referral No Reasons for Referral Entered Social History Social History Observation Description Start Date End Date Code Code System Current Smoking Status Tobacco smoking consumption unknown 429133083 SNOMED CT Sex Assigned At Male 1935 04060-0 [facility] Vital Signs Code Code System Vitals Name Values and Units Timing Information 51098-0 [facility] Weight Xdkwj=925.1 Units=Lbs 08/2022 2339-0 [facility] Blood Sugar Jqnfl=894.0 Units=mg/dL 10/06/2022 8462-4 [facility] Blood Pressure-Diastolic Value=51 Un its=mmHg 10/06/2022 8480-6 [facility] Blood Pressure-Systolic Rgfqi=418 Un its=mmHg 10/06/2022 28300-2 [facility] Pain Level Value=0.0 10/06/2022 9279-1 [facility] Respiratory Rate Value=15.0 Units=/m in 09/15/2022 8310-5 [facility] Body Temperature Value=97.0 Units=?? F 09/15/2022 8867-4 [facility] Heart rate Value=68.0 Units=/min 06/2023 16040-2 [facility] O2 % BldC Oximetry Value=96.0 Units= % 09/15/2022 8302-2 [facility] Height Value=68.0 Units=Inches 07/09/2022
--- OUTSIDE RECORDS SUMMARY | 2024-09-23 15:27 | XMS_ITS ---
Author Organization Melquiades Chan MD Address [address] [place], [place] [phone] Care Team Providers Care Shirt Trimmer Name Role Phone Melquiades Chan Primary Care Provider [phone] REASON FOR VISIT HCC Codes outstanding Encounters Encounter Location Date Provider Diagnosis Melquiades Chan MD [address] [place], [place] [phone] 03/09/2024 Melquiades Chan Plan Of Treatment No Information Progress Notes * Isaac RIOSDOB:1935 (88 yo M)Acc No.[id number]:03/09/2024 Patient:?Isaac Rios :1935???Age:88 Y???Sex:Male Address:[address] [place] [id number] * true * Date:? Generated for Printi ng/Faxing/eTransmitting on:?09/23/2024 03:27 PM EDT
== END 2024-09-23 12:59 | disposition home or self-care (01) ==
LOC: HO.HMGCX 12:58
PROVIDERS: PCP Internal Medicine; Visit Provider Physical Medicine & Rehabilitation
DX: M46.1 Sacroiliitis, not elsewhere classified (principal)
CPT/HCPCS: 72202

== ENCOUNTER → 2024-09-23 13:07 | Outpatient (BNV) | payer MEDICARE, SELFPAY | PROVIDERS: PCP Internal Medicine; Visit Provider Radiology Diagnostic Radiology | DX: M46.1 Sacroiliitis, not elsewhere classified (principal) | CPT/HCPCS: 72202 ==

== ENCOUNTER 2024-11-09 13:46 | Outpatient (REF) | payer MEDICARE, SELFPAY ==
--- NOTE | ~2024-11-09 | US_ITS ---
EXAMINATION: US THYROID CLINICAL INFORMATION: Thyroid nodule. COMPARISON: October 15, 2023. TECHNIQUE: Linear transducer grayscale and color Doppler examination with attention to the region of the thyroid. FINDINGS: SIZE: Measurements of the thyroid lobes and nodules are given in sagittal, anteroposterior and transverse dimensions respectively. Right Thyroid Lobe: 4.2 x 1.7 x 1.2 cm, volume 4.5 mL. Previous: 4.3 x 1.7 x 1.3 cm, volume: 5 cc. Parenchyma: The gland echotexture is heterogeneous. Thyroid vascularity is normal. Left Thyroid Lobe: 3.5 x 1.5 x 1.6 cm, volume 4.4 mL. Previous: 4.0 x 1.3 x 1.5 cm, volume: 4.1 cc. Parenchyma: The gland echotexture is heterogeneous. Thyroid vascularity is normal. Isthmus: 0.3 cm in maximum AP dimension. Previous: 0.3 cm. Estimated total number of nodules greater than or equal to 1 cm: 0. Weft Straightener nodules are described as follows: 1. Location: Upper aspect, right lobe. Size: 0.9 x 0 0.9, 0.9 cm, volume 0.41 mL. Previous: 0.9 x 0.8 x 0.9 cm, volume: 0.33 cc. Nodule characteristics: Composition: Solid (2). Echogenicity: Isoechoic (1). Shape: Not taller than wide (0). Margins: Smooth (0). Echogenic Foci: None (0). ACR TI-RADS total points: 3 ACR TI-RADS category: 3 2. Location: Upper, left thyroid lobe. Size: 0.6 x 0.5 x 0.7 cm, volume 0.12 mL. Previous: 0.6 x 0.5 x 0.6 cm: Volume: 0.1 cc. Nodule characteristics: Composition: Cystic(0). Echogenicity: Anechoic (0). Shape: Not taller than wide (0). Margins: Smooth (0). Echogenic Foci: None (0). ACR TI-RADS total points: 0 ACR TI-RADS category: 1 3. Location: Mid, left thyroid lobe.. Size: 0.6 x 0.3 x 0.5 cm, volume 0.04 mL. Previous: 0.8 x 0.3 x 0.5 cm, volume: 0.05 cc. Nodule characteristics: Composition: Spongiform (0). Echogenicity: Shape: Not taller than wide (0). Margins: Smooth (0). Echogenic Foci: None (0). ACR TI-RADS total points: 0 ACR TI-RADS category: 1 4. Location: Left midline, isthmus. Size: 0.5 x 0.2 x 0.5 cm, volume 0.03 mL. Nodule characteristics: Composition: Cystic(0). Echogenicity: Anechoic (0). Shape: Not taller than wide (0). Margins: Smooth (0). Echogenic Foci: None (0). ACR TI-RADS total points: 0 ACR TI-RADS category: 1 NODES: No lymphadenopathy is seen in the tissue surrounding the thyroid gland. US/US thyroid IMPRESSION: ACR TI RADS 3, upper right thyroid lobe. ACR TI-RADS RECOMMENDATION REFERENCE: Ultrasound-guided fine-needle aspiration, followup ultrasound, no further follow up. * TR1 (0 point) and TR2 (2 points): No FNA or follow up. * TR3 (3 points): FNA if more than or equal to 2.5 cm in maximum dimension, followup ultrasound in 1, 3 and 5 years if 1.5 to 2.4 cm in maximum dimension. * TR4 (4-6 points): FNA if more than or equal to 1.5 cm in maximum dimension, followup ultrasound in 1, 2, 3 and 5 years if 1 to 1.4 cm in maximum dimension. * TR5 (more than or equal to 7 points): FNA if more than or equal to 1 cm in maximum dimension, followup ultrasound every year for 5 years if 0.5 to 0.9 cm in maximum dimension. * TR3, TR4 or TR5 nodules that are below the size threshold for followup receive no follow up. Electronically signed by: Reinaldo Dumont MD 11/09/2024 02:31 PM EDT
--- OUTSIDE RECORDS SUMMARY | 2024-11-09 15:08 | XMS_ITS ---
Author Organization Melquiades Chan MD Address [address] [place], [place] [phone] Care Team Providers Care Estate Tax Examiner Name Role Phone Melquiades Chan Primary Care Provider REASON FOR VISIT ER Encounters Encounter Location Date Provider Diagnosis Melquiades Chan MD [address] [place] [phone] 07/08/2024 Melquiades Chan Plan Of Treatment No Information Progress Notes * Isaac RIOSDOB:1935 (89 yo M)Acc No.[id number]:07/08/2024 Patient:?Isaac Rios :1935???Age:89 Y???Sex:Male Address:[address] [place] [address] [place] [address] * true * Date:? Generated for Printi ng/[place]/eTransmitting on:?11/09/2024 03:08 PM EDT
--- OUTSIDE RECORDS SUMMARY | 2024-11-09 15:08 | XMS_ITS | Patient Health Record ---
Author Organization Melquiades Chan MD Address [address] [place] [address] [phone] Care Team Providers Care Roadability Machine Operator Name Role Phone Melquiades Chan Primary Care Provider Allergies No Known Allergies Results Component Value Reference Range Notes Hemoglobin A1c Reviewed date:12/12/2023 10:33:49 AM Interpretation: Performing Lab: Notes/Report: Hemoglobin A1c 7.0 Liver Panel Reviewed date:02/09/2024 02:04:05 PM Interpretation: Performing Lab:[facility], [address] [place] [address] Notes/Report: Bilirubin Total 1.6 0.0-1.0 mg/dL Bilirubin Direct 0.5 0.0-0.5 mg/dL Aspartate Amino Transferase 18 5-37 U/L Alanine Aminotransferase 17 0-40 U/L Total Protein 6.4 6.5-8.0 g/dL Albumin Level 4.0 3.5-5.0 g/dL Alkaline Phosphatase 48 39-117 U/L Glucose Fasting Reviewed date:02/09/2024 02:11:18 PM Interpretation: Performing Lab:[facility], [address] [place] [phone] Notes/Report: Glucose Fasting 135 60-99 mg/dL A fasting glucose of 126 mg/dl or greater on more than one occasion is considered diagnostic of diabetes. Lipid Panel with Reflex Reviewed date:02/09/2024 02:15:48 PM Interpretation: Performing Lab:[facility], [address] [place] [phone] Notes/Report: Triglycerides 72 <150 mg/dL Desirable Triglyceride: [...] A1c Reviewed date:02/09/2024 02:04:56 PM Interpretation: Performing Lab:[facility], [address] [place] [phone] Notes/Report: Hemoglobin A1c % 7.9 <6.0 % [...] average glucose, using the formula of the J4O-Pcuauze Average Glucose study (ADAG), Diabetes Care, Vol.31,#8, Feb. 2007 Glucose, finger stick Reviewed date:12/12/2023 10:27:06 AM Interpretation: Performing Lab: Notes/Report: Value 225 CT lumbar spine wo con Reviewed date:12/22/2023 03:15:57 PM Interpretation:message sent to provider Performing Lab: Notes/Report: [address] [address] [address] Scan Report Signed Patient: Isaac Vega MR#: [id number] 7 : 1935 Acct:[id number] Age/Sex: 88 / M ADM Date: 12/17/23 Loc: HO.CT Attending Dr: Melquiades Chan MD Ordering Physician: Melquiades Chan MD Date of Service: 12/17/23 Procedure(s): CT lumbar spine wo IV con Accession Number(s): [id number] cc: Melquiades Chan MD EXAMINATION: CT LUMBAR SPINE WITHOUT CONTRAST CLINICAL INFORMATION: Low back pain. Lumbar disc disease. COMPARISON: Lumbar spine MRI 09/17/2018. TECHNIQUE: Airline Attendant images were obtained. CT imaging of the [...] in OV> 12/22/23 1033 DD/ 1524 TD/TT: Material Control Associate: [place] [address] CT Scan Report Signed Patient: Rupert Vega as MR#: [id number] 7 : 1935 Acct:[id number] Age/Sex: 88 / M ADM Date: 12/17/23 Loc: .CT Attending Dr: Melquiades Chan MD Ordering Physician: Melquiades Chan MD Date of Service: 12/17/23 Procedure(s): CT lum bar spine wo IV con Accession Number(s): [id number] cc: Melquiades Chan MD EXAMINATION: CT LUMBAR SPINE WITH OUT CONTRAST CLINICAL INFORMATION: Low back pain. Lumba r disc disease. COMPARISON: Lumbar spine MRI 09/17/2018. TECHNIQUE: Airline Attendant images were obtained. CT imaging of the lumbar spine was performed without contrast. Data was reformatted into multiplanar images at the acquisition workstation. This CT examination was performed using dose optimization techniques as appropriate, various ly including the following: *Automated exposure control *Adjustment of mA and/or kV according to patient size (this includes techniques or standardized protocols for targeted exams where dose is matched to indication/reason for exam; i.e. extremities or head) *Use of iterative reconstruction technique DLP; 491 mGy-cm FINDINGS: There are chronic postoperative changes of a posterior spinal fusion. Transpedicular hardw are extends from L4 to L5. Hardware is grossly intact with no evide nce to suggest loosening or failure. Bridging bone completely fuses the L4 and L5 vertebral segments. Alignment is otherwi se normal. Vertebral body heights are preserved. No acute fracture. Ther e is loss of intervertebral disc height with associated sclerotic degenerative endplate changes, hypertrophic disc osteophyte spurring, and intervertebral vacuum disc phenomenon at L5-S1 and to a lesser exte nt at L3-L4. Canal patency is not well assessed on this examination due to inherent limitations of CT without intrathecal contrast and due to the extent of streak artifact rela finesse to the fusion hardware There is a least moderate canal steno sis at the level of L3-L4. A bulging disc in conjunction with fac et degenerative change at L3-L4 causes at least mild mass effect on both L3 foraminal nerve roots. There is also at least moderate compression of both L5 foraminal nerve roots related to degenerative changes at L5-S1. Limited visualizatio n of the retroperitoneal anatomy reveals heavily calcified atherosclerotic plaque involving abdominal aorta and iliac vessels. Psoas and paraspinal muscle groups are grossly symmetric. CT/CT lumbar spine wo IV con IMPRESSION: There are chronic postoperative changes of a posterior spinal fusion with transpedicular hardware extending from L4 to L5. Bridging bone completely fuses the L4 and L5 vertebral segments. There is junctional spondylosis above an d below the fused segments. Canal patency is not well assessed on thi s examination due to inherent limitations of CT without intrathecal contrast and due to the extent of streak artifact related to the fusio n hardware. There is at least moderate canal stenosis at L3-L4 an d at least mild mass effect on both L3 foraminal nerve roots. There i s also at least moderate compression of both L5 foraminal nerve root s related to degenerative changes at L5-S1. Dictated By: Pedro Lui MD Signed By: <Electronically signed by Pedro Lui MD in OV> 12/22/23 1033 DD/ 1524 TD/TT: Material Control Associate: RH Glucose, finger stick Reviewed date:02/27/2024 02:04:49 PM Interpretation: Performing Lab: Notes/Report: Value 245 Hold Gold Reviewed date:02/09/2024 02:04:17 PM Interpretation: Performing Lab:[facility], [address] [place] [phone] Notes/Report: Hold Gold See Note Specimen held untested for 24 hours; Call to request Chemistry testing. XR toe RT min 2V Reviewed date:07/06/2024 04:35:50 PM Interpretation: Performing Lab: Notes/Report: [address] [address] XRay Report Signed Patient: Isaac Vega MR#: [id number] 7 : 1935 Acct:[id number] Age/Sex: 89 / M ADM Date: 07/04/24 Loc: HO.ED Attending Dr: Ordering Physician: Yuliya Alvarez Date of Service: 07/04/24 Procedure(s): XR toe RT min 2V Accession Number(s): [id number] cc: Melquiades Chan MD; Yuliya Alvarez CLINICAL HISTORY: 2nd toe injury, diabetic 3 view right 2nd toe Comparison: None Findings: There is a nondisplaced fracture of the proximal metaphysis of the 2nd distal phalanx. No dislocation. Moderate arthritic change. No erosions. No radiopaque foreign body. There are peripheral vascular calcifications compatible with diabetes. IMPRESSION: Acute fracture of the 2nd distal phalanx. This document has been electronically signed by: Sarah Stephens MD on 07/04/2024 17:19:28 Dictated By: Sarah Stephens MD Signed By: <Electronically signed by Sarah Stephens MD in OV> 07/04/24 1720 DD/ 1719 TD/TT: 07/04/241718 Material Control Associate: [address] [address] XRay Report Signed Patient: Rupert Vega MR#: [id number] 7 : 1935 Acct:[id number] Age/Sex: 89 / M ADM Date: 07/04/24 Loc: HO.ED Attending Dr: Ordering Physician: Yuliya Alvarez Date of Service: 07/04/24 Procedure(s): XR toe RT min 2V Accession Number(s): [id number] cc: Melquiades Chan MD; Yuliya Alvarez CLINICAL HISTORY: 2n d toe injury, diabetic 3 view right 2nd toe Comparison: None Findings: There is a nondispla mehrdad fracture of the proximal metaphysis of the 2nd distal phalanx. No dislocation. Moderate arthritic change. No erosions. No radiopaque foreign body. There are peripheral vascular calcifications compatible with diabetes. IMPRESSION: Acute fracture of th e 2nd distal phalanx. This document has be en electronically signed by: Sarah Stephens MD on 07/04/2024 17:19:28 Dictated By: Sarah Stephens MD Signed By: <Electronically signed by Sarah Stephens MD in OV> 07/04/24 172 DD/ 18 TD/TT: 07/04/241718 Material Control Associate: XR sacroiliac joint min 3V Reviewed date:09/27/2024 12:56:08 PM Interpretation: Performing Lab: Notes/Report: [facility] [place] [address] XRay Report Signed Patient: Isaac Vega MR#: [id number] 7 : 1935 Acct:[id number] Age/Sex: 89 / M ADM Date: 09/23/24 Loc: HO.HMGCX Attending Dr: Daljit Astudillo MD Ordering Physician: Daljit Astudillo MD Date of Service: 09/23/24 Procedure(s): XR sacroiliac joint min 3V Accession Number(s): [id number] cc: Melquiades Chan MD; Daljit Astudillo MD EXAMINATION: XR SACROILIAC JOINTS CLINICAL INFORMATION: M46.1 SACROILITIS COMPARISON: None available. TECHNIQUE: 3 views of the sacroiliac joints FINDINGS: No acute cortical disruption. Osteopenia versus osteoporosis. Transpedicular screws at L4-5 and joint with short lamin. XR/XR sacroiliac joint min 3V IMPRESSION: No acute fracture. No sacroiliitis. Electronically signed by: Reinaldo Dumont MD 09/27/2024 08:18 AM EDT RP Dictated By: Reinaldo Fisher MD Signed By: <Electronically signed by Reinaldo French MD in OV> 09/27/24 0818 DD/ 1307 TD/TT: 09/23/24 1315 Material Control Associate: [facility] [address] [place] [address] [place] [address] XRay Report Signed Patient: Rupert Vega as MR#: [id number] 7 : 1935 Acct:[id number] Age/Sex: 89 / M ADM Date: 09/23/24 Loc: HO.HMGX Attending Dr: Daljit Astudillo MD Ordering Physician: Daljit Astudillo MD Date of Service: 09/23/24 Procedure(s): XR sacroiliac joint min 3V Accession Number(s): [id number] cc: Melquiades Chan MD; Daljit Astudillo MD EXAMINATION: XR SACROILIAC JOINTS CLINICAL INFORMATION: M46.1 SACROILITIS COMPARISON: None available. TECHNIQUE: 3 views of the sacroiliac joints FINDINGS: No acute cortical disruption. Osteopenia versus osteoporosis. Transpedicular screw s at L4-5 and joint with short lamin. XR/XR sacroiliac joint min 3V IMPRESSION: No acute fracture. N o sacroiliitis. Electronically alysa d by: Reinaldo Dumont MD 09/27/2024 08:18 AM EDT RP Dictated By: Reinaldo Major MD Signed By: <Electronically signed by Reinaldo French MD in OV> 09/27/24 0818 DD/ 1307 TD/TT: 09/23/24 1315 Material Control Associate: US thyroid (Not yet reviewed by provider) Interpretation: Performing Lab: Notes/Report: [facility] [address] [place] [address] [place] [address] Ultrasound Report Signed Patient: Isaac Vega MR#: [id number] 7 : 1935 Acct:[id number] Age/Sex: 89 / M ADM Date: 11/09/24 Loc: HO.HMGCX Attending Dr: Melquiades Chan MD Ordering Physician: Melquiades Chan MD Date of Service: 11/09/24 Procedure(s): US thyroid Accession Number(s): [id number] cc: Melquiades Chan MD EXAMINATION: US THYROID CLINICAL INFORMATION: Thyroid nodule. COMPARISON: October 15, 2023. TECHNIQUE: Linear transducer grayscale and color Doppler examination with attention to the region of the thyroid. FINDINGS: SIZE: Measurements of the thyroid lobes and nodules are given in sagittal, anteroposterior and transverse dimensions respectively. Right Thyroid Lobe: 4.2 x 1.7 x 1.2 cm, volume 4.5 mL. Previous: 4.3 x 1.7 x 1.3 cm, volume: 5 cc. Parenchyma: The gland echotexture is heterogeneous. Thyroid vascularity is normal. Left Thyroid Lobe: 3.5 x 1.5 x 1.6 cm, volume 4.4 mL. Previous: 4.0 x 1.3 x 1.5 cm, volume: 4.1 cc. Parenchyma: The gland echotexture is heterogeneous. Thyroid vascularity is normal. Isthmus: 0.3 cm in maximum AP dimension. Previous: 0.3 cm. Estimated total number of nodules greater than or equal to 1 cm: 0. [employer] Teacher nodules are described as follows: 1. Location: Upper aspect, right lobe. Size: 0.9 x 0 0.9, 0.9 cm, volume 0.41 mL. Previous: 0.9 x 0.8 x 0.9 cm, volume: 0.33 cc. Nodule characteristics: Composition: Solid (2). Echogenicity: Isoechoic (1). Shape: Not taller than wide (0). Margins: Smooth (0). Echogenic Foci: None (0). ACR TI-RADS total points: 3 ACR TI-RADS category: 3 2. Location: Upper, left thyroid lobe. Size: 0.6 x 0.5 x 0.7 cm, volume 0.12 mL. Previous: 0.6 x 0.5 x 0.6 cm: Volume: 0.1 cc. Nodule characteristics: Composition: Cystic(0). Echogenicity: Anechoic (0). Shape: Not taller than wide (0). Margins: Smooth (0). Echogenic Foci: None (0). ACR TI-RADS total points: 0 ACR TI-RADS category: 1 3. Location: Mid, left thyroid lobe.. Size: 0.6 x 0.3 x 0.5 cm, volume 0.04 mL. Previous: 0.8 x 0.3 x 0.5 cm, volume: 0.05 cc. Nodule characteristics: Composition: Spongiform (0). Echogenicity: Shape: Not taller than wide (0). Margins: Smooth (0). Echogenic Foci: None (0). ACR TI-RADS total points: 0 ACR TI-RADS category: 1 4. Location: Left midline, isthmus. Size: 0.5 x 0.2 x 0.5 cm, volume 0.03 mL. Nodule characteristics: Composition: Cystic(0). Echogenicity: Anechoic (0). Shape: Not taller than wide (0). Margins: Smooth (0). Echogenic Foci: None (0). ACR TI-RADS total points: 0 ACR TI-RADS category: 1 NODES: No lymphadenopathy is seen in the tissue surrounding the thyroid gland. US/US thyroid IMPRESSION: ACR TI RADS 3, upper right thyroid lobe. ACR TI-RADS RECOMMENDATION REFERENCE: Ultrasound-guided fine-needle aspiration, followup ultrasound, no further follow up. * TR1 (0 point) and TR2 (2 points): No FNA or follow up. * TR3 (3 points): FNA if more than or equal to 2.5 cm in maximum dimension, followup ultrasound in 1, 3 and 5 years if 1.5 to 2.4 cm in maximum dimension. * TR4 (4-6 points): FNA if more than or equal to 1.5 cm in maximum dimension, followup ultrasound in 1, 2, 3 and 5 years if 1 to 1.4 cm in maximum dimension. * TR5 (more than or equal to 7 points): FNA if more than or equal to 1 cm in maximum dimension, followup ultrasound every year for 5 years if 0.5 to 0.9 cm in maximum dimension. * TR3, TR4 or TR5 nodules that are below the size threshold for followup receive no follow up. Electronically signed by: Reinaldo Dumont MD 11/09/2024 02:31 PM EDT Dictated By: Reinaldo Fisher MD Signed By: <Electronically signed by Reinaldo French MD in OV> 11/09/24 1431 DD/ 1356 TD/TT: 11/09/24 1405 Material Control Associate: [facility] [address] [place] [address] [place] [address] Ultrasound Report Signed Patient: Rupert Vega as MR#: [id number] 7 : 1935 Acct:[id number] Age/Sex: 89 / M ADM Date: 11/09/24 Loc: [facility] Attending Dr: Melquiades Chan MD Ordering Physician: Melquiades Chan MD Date of Service: 11/09/24 Procedure(s): US thyroid Accession Number(s): [id number] cc: Melquiades Chan MD EXAMINATION: US THYROID CLINICAL INFORMATION: Thyroid nodule. COMPARISON: October 15, 2023. TECHNIQUE: Linear transducer grayscale and color Doppler examination with attention to the reg ion of the thyroid. FINDINGS: SIZE: Measurements o f the thyroid lobes and nodules are given in sagittal, anteroposterior and transverse dimensions respectively. Right Thyroid Lobe: 4.2 x 1.7 x 1.2 cm, volume 4.5 mL. Previous: 4.3 x 1.7 x 1.3 cm, volume: 5 cc. Parenchyma: The glan d echotexture is heterogeneous. Thyroid vascularity is normal. Left Thyroid Lobe: 3 .5 x 1.5 x 1.6 cm, volume 4.4 mL. Previous: 4.0 x 1.3 x 1.5 cm, volume: 4.1 cc. Parenchyma: The glan d echotexture is heterogeneous. Thyroid vascularity is normal. Isthmus: 0.3 cm in maximum AP dimension. Previous: 0.3 cm. Estimated total numb er of nodules greater than or equal to 1 cm: 0. [employer] nodul es are described as follows: 1. Location: Upper aspect, right lobe. Size: 0.9 x 0 0.9, 0 .9 cm, volume 0.41 mL. Previous: 0.9 x 0.8 x 0.9 cm, volume: 0.33 cc. Nodule characteristics: Composition: Solid (2). Echogenicity: Isoech oic (1). Shape: Not taller th an wide (0). Margins: Smooth (0). Echogenic Foci: None (0). ACR TI-RADS total points: 3 ACR TI-RADS category: 3 2. Location: Upper, left thyroid lobe. Size: 0.6 x 0.5 x 0. 7 cm, volume 0.12 mL. Previous: 0.6 x 0.5 x 0.6 cm: Volume: 0.1 cc. Nodule characteristics: Composition: Cystic(0). Echogenicity: Anecho ic (0). Shape: Not taller th an wide (0). Margins: Smooth (0). Echogenic Foci: None (0). ACR TI-RADS total points: 0 ACR TI-RADS category: 1 3. Location: Mid, le ft thyroid lobe.. Size: 0.6 x 0.3 x 0. 5 cm, volume 0.04 mL. Previous: 0.8 x 0.3 x 0.5 cm, volume: 0.05 cc. Nodule characteristics: Composition: Spongif orm (0). Echogenicity: Shape: Not taller th an wide (0). Margins: Smooth (0). Echogenic Foci: None (0). ACR TI-RADS total points: 0 ACR TI-RADS category: 1 4. Location: Left midline, isthmus. Size: 0.5 x 0.2 x 0. 5 cm, volume 0.03 mL. Nodule characteristics: Composition: Cystic(0). Echogenicity: Anecho ic (0). Shape: Not taller th an wide (0). Margins: Smooth (0). Echogenic Foci: None (0). ACR TI-RADS total points: 0 ACR TI-RADS category: 1 NODES: No lymphadenopathy is seen in the tissue surrounding the thyroid gland. US/US thyroid IMPRESSION: ACR TI RADS 3, upper right thyroid lobe. ACR TI-RADS RECOMMENDATION REFERENCE: Ultrasound-guided fine-needle aspiration, followup ultrasound, no further follow up. * TR1 (0 point) and TR2 (2 points): No FNA or follow up. * TR3 (3 points): FN A if more than or equal to 2.5 cm in maximum dimension, followup ultrasound in 1, 3 and 5 years if 1.5 to 2.4 cm in maximum dimension. * TR4 (4-6 points): FNA if more than or equal to 1.5 cm in maximum dimension, followup ultrasound in 1, 2, 3 and 5 years if 1 to 1.4 cm in maximum dimension. * TR5 (more than or equal to 7 points): FNA if more than or equal to 1 cm in maximum dimension, followup ultrasound every year for 5 years if 0.5 to 0.9 cm in maximum dimension. * TR3, TR4 or TR5 nodules that are below the size threshold for followup receive no follow up. Electronically alysa d by: Reinaldo Dumont MD 11/09/2024 02:31 PM EDT RP Dictated By: Reinaldo Major MD Signed By: <Electronically signed by Reinaldo French MD in OV> 11/09/24 1431 DD/ 1356 TD/TT: 11/09/24 1405 Material Control Associate: Reason For Referral Reason lumbar disc disease Diagnosis 1 Lumbar disc disease with radiculopathy (M51.16) Referral Organization Melquiades Chan MD Referring Provider First Name Melquiades Referring Provider Last Name Dustin Referring Provider Speciality Internal M edicine Referred Provider Luis Alberto Pardo Referred Provider Specialty Neurological Surgery General Notes Amber Silva 01:33:45 PM EDT > p [phone] Annette 12/22/2023 01:45:11 PM EDT > in order to book an appt with Dr. Pardo patient must have a MRI done. , Amber Silva 12/22/2023 02:48:21 PM EDT > pre provider patient not able to have a MRI done, due to fusions and metal in his back records faxed to Shira Blanco Annette 12/26/2023 02:01:55 PM EDT > gave him his info regarding appt during his appt with provider on 12-26-2023, told him they are trying to get him in [place].Shira Annette 01/05/2024 08:57:54 AM EDT > info refaxed to [phone] [place] [facility] [place] Referral Priority Routine Referral Appointment Date 02/12/2024 Medications Medication SIG (Take, Route, Frequency, Duration) Notes [...] 100 MG 2 capsule Orally hs Active Immunizations Vaccine Route Administration Date Status Comme nts PPSV23 (Pnemovax) Unknown 11/16/2004 Administered Flu Vaccine Unknown 04/11/[address] [facility] Flu Vaccine Unknown 04/19/2014 [facility] 07/10/2015 Administered [facility] Fluarix Quadrivalent Unknown 06/17/2016 Administered [facility] Fluarix Quadrivalent Unknown 04/30/2017 Administered [facility] Prevnar 13 IM Intramuscular 10/03/2014 [place] PPSV23 (Pnemovax) Unknown 02/10/2003 Administered [place] the vaccine [place] Shingles Unknown 04/15/2012 Administered [place] was [place] the vaccine [place] TDaP Unknown 03/25/2012 Administered [place] was [place] the vaccine [place] Shingrix IM Intramuscular 12/11/2017 Administered [place] was [place] the vaccine [place] Shingrix IM Intramuscular 10/03/2017 Administered [place] was [place] the vaccine [place] Influenza High Dose Unknown 04/20/2019 [facility]ered [facility] SARS-COV-2 Pfizer Unknown 11/07/2020 Administered SARS-COV-2 Pfizer Unknown 12/08/2020 Administered Fluarix Quadrivalent Unknown 03/23/2021 Administered Influenza High Dose Unknown 05/07/2022 Administered Influenza High Dose Unknown 03/26/2023 Administered [facility] [place] PPSV23 (Pnemovax) Unknown 01/19/2015 Refused Social History Tobacco Use: Social History Observation Description Date Details (start date - stop date) Former Smoker NA - NA Tobacco Use/Smoking Question Answer Notes Patient is [...] Never (0 point) Points 4 Interpretation Positive Problems Problem Type SNOMED Code ICD Code Onset Dates Problem Status W/U Status Risk Notes Problem 982346207 Thyroid nodule (E04.1) Active confirm ed Problem 984389265 Thrombocytopenia (D69.6) Active confirmed Problem 809042178 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 Problem 631693349 Acute systolic (congestive) heart failure (I50.21) Active confirmed Problem 20520970 Essential hypert ension (I10) Active confirmed Problem 53481644 Type 2 diabetes mellitus without complication (E11.9) Active confirmed Problem Unstable gait (R26.81) Active confirmed Problem 19633000 Type 2 diabetes, controlled, with neuropathy (E11.40) Active confirmed Problem 281972467 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) Active confirmed Problem 68173295 Serum potassium elevated (E87.5) Active confirmed Problem 99367606 Aortic stenosis (Q25.3) Active confirmed Problem 389684358 Anemia, unspecif ied type (D64.9) Active confirmed Problem 725409140 Neutropenia, unspecified type (D70.9) Active confirmed Problem 560098599 Rising PSA level (R97.20) Active confirmed Problem 597093799 Pure hypercholesterolemia (E78.00) Active confirmed Problem 727612552 Temporary low pl atelet count (D69.6) Active confirmed Problem 947180464685512 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) Active confirmed Problem 44172408646294760 Carpal tunnel syndrome on both sides (G56.03) Active confirmed Problem 024172407 Brain bleed (I61.9) Active confirmed Vital Signs Blood pressure diastolic 40 mm Hg 02/27/2024 Height 66.5 in 02/27/2024 Blood pressure systolic 118 mm Hg 02/27/2024 Weight 154 lbs 12/12/2023 BMI 24.48 kg/m2 12/12/2023 Encounters Encounter Location Date Provider Diagnosis Melquiades Chan MD [address] [place] [address] [id number] 02/09/2024 Melquiades Chan Type 2 diabetes monae itus without complication E11.9 and Pure hypercholesterolemia E78.00 Melquiades Chan MD [address] [place] [address] [id number] 12/12/2023 Melquiades Chan Type 2 diabetes monae itus without complication E11.9 and Lumbar disc disease with radiculopathy M51.16 Melquiades Chan MD [address] [place] [address] [id number] 12/19/2023 Melquiades Chan Lumbar disc disease with radiculopathy M51.16 Melquiades Chan MD [address] [place] [address] [id number] 12/26/2023 Melquiades Chan Lumbar disc disease with radiculopathy M51.16 Melquiades Chan MD [address] [place] [id number] 01/15/2024 Melquiades Chan Essential hypertensi on I10 and Type 2 diabetes, controlled, with neuropathy E11.40 Melquiades Chan MD [address] [place] [address] [id number] 02/27/2024 Melquiades Chan Type 2 diabetes monae itus without complication E11.9 ; Lumbar disc disease with radiculopathy M51.16 and Pure hypercholesterolemia E78.00 Melquiades Chan MD [address] [place] [address] [id number] 09/30/2024 Melquiades Chan MD [address] [place] [phone] 12/22/2023 Melquiades Chan MD [address] [place], [place] [phone] 03/09/2024 Melquiades Chan MD [address] [place] [phone] 07/08/2024 Melquiades Chan Assessments Encounter Date Diagnosis (ICD Code) Assessment Notes Treatment Notes Treatment Clinical Notes Section Notes 02/09/2024 Type 2 diabetes monae itus without complication (ICD-10 - E11.9) 02/09/2024 Pure hypercholesterolemia (ICD-10 - E78.00) 12/12/2023 Type 2 diabetes monae itus without complication (ICD-10 - E11.9) stable, will continue currnt regiment 12/12/2023 Lumbar disc disease with radiculopathy (ICD-10 - M51.16) has fusion there/order faxed to [facility] dept, pending diagnostic testing 12/19/2023 Lumbar disc disease with radiculopathy (ICD-10 - M51.16) if it gets worse to go to the emergency room. will put pressure on radiology to read xray next 12/26/2023 Lumbar disc disease with radiculopathy (ICD-10 - M51.16) reviewed CT of [facility] Spine with patient, is getting physical therapy. awaiting dr pardo's evaluation/ if dr pardo won't see him will send to [facility] to see if they can help/ has an appt with Dr. 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 will contiue current regiment Plan Of Treatment Pending Test Test Name Order Date Electrocardiogram (EKG) 08/04/2015 Electrocardiogram (EKG) 09/05/2017 Electrocardiogram (EKG) 09/11/2018 Electrocardiogram (EKG) 01/19/2015 X ray : LS Spine 04/08/2011 XR CHEST 2 VIEW PA & LAT 08/04/2015 ECHO 06/15/2013 ECHO 07/21/2014 US thyroid 10/17/2023 US thyroid 11/09/2024 Future Test Test Name Order Date US thyroid 10/28/2023 US thyroid 11/09/2023 Insurance Providers Payer Name Payer Address Payer Phone Subscriber Number Group Number Insured Name Patient Relationship to Insured Coverage Start Date Coverage End Date MEDICARE [facility] [address] [place] [address] [id number] Isaac Vega Self - patient is the insured [employer] [place] [address] [place] [address] [id number] Isaac Vega Self - patient is the insured Medical (General) History Medical History History ICD Code colonoscopy 2011 small adeno ma; 01/24/15 colonoscopy w/Dr. Rhodes (repeat 10 yrs) carotid ultrasound insignificant stenosi s 2012 echo with mild aortic stenosis 2012 cabg 03/2016
--- OUTSIDE RECORDS SUMMARY | 2024-11-09 15:08 | XMS_ITS ---
Author Organization Melquiades Chan MD Address [address] [place] [phone] Care Team Providers Care Manager Corporate Communications Name Role Phone OctavioMelquiades coon Primary Care Provider [phone] Allergies No Known Allergies REASON FOR VISIT 3 month, fall, tobacco, PHQ9 Encounters Encounter Location Date Provider Diagnosis Melquiades Chan MD [address] [place] [phone] 05/31/2024 Melquiades Chan Type 2 diabetes mellitus without complication E11.9 Assessments Encounter Date Diagnosis (ICD Code) Assessment Notes Treatment Notes Treatment Clinical Notes Section Notes 05/31/2024 Type 2 diabetes mellitus without complication (ICD-10 - E11.9) Plan Of Treatment No Information Progress Notes * Isaac RIOSDOB:1935 (89 yo M)Acc No.[id number]:05/31/2024 Progress Notes Patient:?Isaac RIOS Provider:?Melquiades Chan MD :1935???Age:88 Y???Sex:Male Servando e:05/31/2024 Address:[address] [place] [address], [id number] Subjective: * Chief Complaints: * ???1. 3 month. 2. 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 * ROS:?General/Constitutional:?Denies?Chills.?Denies?Fatigue.?Denies?Fever.?Denies?Headache.?ENT:?Denies?Sore throat.?Respiratory:?Denies?Cough.?Denies?Shortness of breath at rest.?Denies?Shortness of breath with exertion.?Gastrointestinal:?Denies?Diarrhea.?Denies?Nausea.? * Medical History:?colonoscopy 2010 small adenoma; 01/24/15 colonoscopy w/Dr. Rhodes (repeat 10 yrs), Carotid ultrasound insignificant stenosis 2012, Echo with mild aortic stenosis 2012, Cabg 03/2016. * Allergies:?N.K.D.A. Objective: * Vitals:? Assessment: * Assessment: 1.?Type 2 diabetes mellitus without complication - E11.9??? Plan: * Treatment: * Procedure Codes:?08177 ASSAY , GLUCOSE, BLOOD QUANT, Modifiers: QW , 03825 GLYCATED HEMOGLOBIN TEST, Modifiers: QW * * The named appointment provid er may or may not be the originator of this progress note, and it is not deemed complete until electronically signed by the appointment provider. Sign off status: Pending * Provider:?Melquiades Chan MD Date:?1 07/31/2023 Generated for Korey duran/Magdalene/eTransmitting on:?11/09/2024 03:07 PM EDT
--- OUTSIDE RECORDS SUMMARY | 2024-11-09 15:08 | XMS_ITS ---
Author Organization Melquiades Chan MD Address [address] [place], [place] [phone] Care Team Providers Care Logistics Supply Officer Name Role Melquiades Freire Primary Care Provider [phone] REASON FOR VISIT Thyroid US due Encounters Encounter Location Date Provider Diagnosis Melquiades Chan MD [address] [place], [place] [phone] 09/30/2024 Melquiades Chan Plan Of Treatment No Information Progress Notes * Isaac RIOSDOB:1935 (89 yo M)Acc No.[id number]:09/30/2024 Patient:?Isaac RIOS :1935???Age:89 Y???Sex:Male Address:[address] [place] [id number] * * Date:?
== END 2024-11-09 13:47 | disposition home or self-care (01) ==
LOC: HO.HMGCX 13:46
PROVIDERS: PCP Internal Medicine; Visit Provider Internal Medicine
DX: E04.1 Nontoxic single thyroid nodule (principal)
CPT/HCPCS: 76536

== ENCOUNTER → 2024-11-09 13:50 | Outpatient (BNV) | payer MEDICARE, SELFPAY | PROVIDERS: PCP Internal Medicine; Visit Provider Radiology Diagnostic Radiology | DX: E04.1 Nontoxic single thyroid nodule (principal) | CPT/HCPCS: 76536 ==

== ENCOUNTER 2025-02-16 13:49 | Outpatient (REF) | payer MEDICARE, SELFPAY ==
--- OUTSIDE RECORDS SUMMARY | 2024-05-31 10:00 | XMS_ITS ---
Author Organization Melquiades Chan MD Address [address] [place] [address] [phone] Care Team Providers Care Correspondent Name Role Phone Melquiades Chan Primary Care Provider [phone] Allergies No Known Allergies REASON FOR VISIT 3 month, fall, tobacco, PHQ9 Encounters Encounter Location Date Provider Diagnosis Melquiades Chan MD [address] [place] [address] [phone] 05/31/2024 Melquiades Chan Type 2 diabetes mellitus without complication E11.9 Assessments Encounter Date Diagnosis (ICD Code) Assessment Notes Treatment Notes Treatment Clinical Notes Section Notes 05/31/2024 Type 2 diabetes mellitus without complication (ICD-10 - E11.9) Plan Of Treatment No Information Progress Notes * Isaac RIOSDOB:1935 (89 yo M)Acc No.[id number]:05/31/2024 Progress Notes Patient: Isaac MEJIAS Provider: Tahmina Chan MD :1935 A ge:88 Y S ex:Male Date:05/31/2024 Address:[address] [place] [address], [place], [id number] Subjective: * Chief Complaints: * 1 . 3 month. 2. fall, tobacco, PHQ9 . * ROS: G eneral/Constitutional: Denies C hills. D enies F atigue. D enies F ever. D enies H eadache. E NT: Denies S ore throat. R espiratory: Denies C ough. D enies S hortness of breath at rest. D enies S hortness of breath with exertion. G astrointestinal: Denies D iarrhea. D enies N ausea. * Medical History: c olonoscopy 2010 small adenoma; 01/24/15 colonoscopy w/Dr. Rhodes (repeat 10 yrs), Carotid ultrasound insignificant stenosis 2012, Echo with mild aortic stenosis 2012, Cabg 03/2016. * Allergies: N .K.D.A. Objective: * Vitals: Assessment: * Assessment: 1. T ype 2 diabetes mellitus without complication - E11.9 Plan: * Treatment: * Procedure Codes: 8 2947 ASSAY, GLUCOSE, BLOOD QUANT, Modifiers: QW , 39290 GLYCATED HEMOGLOBIN TEST, Modifiers: QW * * The named appointment provid er may or may not be the originator of this progress note, and it is not deemed complete until electronically signed by the appointment provider. Sign off status: Pending * Provider: Tahmina Chan MD Date: 1 07/31/2023 Generated for Korey duran/Magdalene/Frankieitting on: 0 02/16/2025 02:13 PM EDT
--- NOTE | ~2025-02-16 | XR_ITS ---
EXAMINATION: XR HIP, LEFT CLINICAL INFORMATION: EVALUATE DJD,PAIN WITH WEIGHT BEARING COMPARISON: Correlated to sacrum joint x-ray dated September 23, 2024. TECHNIQUE: AP and oblique views, of the left hip. AP view pelvis. FINDINGS: No acute cortical disruption or gross malalignment. Asymmetric Joint space narrowing, both coxofemoral joint. Mild sclerosis along the articular surface of the acetabulum. Small marginal osteophyte formation. Degenerative changes in the inferior cerebellar joints and symphysis pubis. Vascular calcifications. Metallic hardware and lower lumbar spine L4-5. Osteopenia versus osteoporosis. XR/XR hip LT w PEL1V IMPRESSION: No acute fracture or dislocation. 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 Electronically signed by: Reinaldo Dumont MD 02/16/2025 02:14 PM EDT
--- OUTSIDE RECORDS SUMMARY | 2025-02-16 14:13 | XMS_ITS | Patient Health Record ---
Author Organization [facility] Address [address] [place] [id number] Care Team Providers Care Meal Temperer Name Role Phone Pedro Lal Unavailable [phone] Reason For Referral No Information Plan Of Treatment No Information
== END 2025-02-16 13:50 | disposition home or self-care (01) ==
LOC: HO.HMGCX 13:49
PROVIDERS: PCP Internal Medicine; Visit Provider Physical Medicine & Rehabilitation
DX: M16.12 Unilateral primary osteoarthritis, left hip (principal); M25.552 Pain in left hip; M53.3 Sacrococcygeal disorders, not elsewhere classified
CPT/HCPCS: 73502

== ENCOUNTER → 2025-02-16 13:59 | Outpatient (BNV) | payer MEDICARE, SELFPAY | PROVIDERS: PCP Internal Medicine; Visit Provider Radiology Diagnostic Radiology | DX: M25.552 Pain in left hip (principal) | CPT/HCPCS: 73502 ==